=== PATIENT | female | born 1950 | race Caucasian/White ===

== ENCOUNTER 2019-11-06 13:12 | Outpatient (RCR) | payer MEDICAID, SELFPAY | END 2019-11-28 00:01 | LOC: GILAB 13:12 | PROVIDERS: Family Provider Internal Medicine; Visit Provider Internal Medicine | DX: Z95.828 Presence of other vascular implants and grafts (principal) | CPT/HCPCS: 96523; G0463; J1642 ==

== ENCOUNTER 2019-12-04 13:01 | Outpatient (CLI) | payer MEDICAID, SELFPAY ==
[2019-12-04 13:35] VITALS: BP 146/63; PULSE 79; RESP 20; TEMP 36.9; O2SAT 99
[2019-12-04 14:15] VITALS: BMI 18.1
== END 2019-12-04 13:02 | disposition home or self-care (01) ==
LOC: GILAB 13:05
PROVIDERS: Family Provider Internal Medicine; PCP Internal Medicine; Visit Provider Internal Medicine
DX: Z95.828 Presence of other vascular implants and grafts (principal)
CPT/HCPCS: 96368; J1642

== ENCOUNTER 2020-01-09 12:13 | Outpatient (CLI) | payer MEDICAID, SELFPAY ==
[2020-01-09 12:25] VITALS: BP 136/63; PULSE 74; RESP 20; TEMP 36.7; O2SAT 94
== END 2020-01-09 12:14 | disposition home or self-care (01) ==
LOC: GILAB 12:14
PROVIDERS: Family Provider Internal Medicine; PCP Internal Medicine; Visit Provider Internal Medicine
DX: Z95.828 Presence of other vascular implants and grafts (principal)
CPT/HCPCS: 96368

== ENCOUNTER 2020-02-05 13:08 | Outpatient (CLI) | payer MEDICAID, SELFPAY ==
[2020-02-05 13:42] VITALS: BP 154/64; PULSE 74; RESP 19; TEMP 35.9; O2SAT 88
== END 2020-02-05 13:09 | disposition home or self-care (01) ==
LOC: GILAB 13:11
PROVIDERS: Family Provider Internal Medicine; PCP Internal Medicine; Visit Provider Internal Medicine
DX: Z95.828 Presence of other vascular implants and grafts (principal)
CPT/HCPCS: 73590; 73610; 96368; J1642

== ENCOUNTER 2020-03-06 13:25 | Outpatient (CLI) | payer MEDICAID, SELFPAY | END 2020-03-06 13:26 | disposition home or self-care (01) | LOC: ONCMED 13:25 | PROVIDERS: Family Provider Internal Medicine; PCP Internal Medicine; Visit Provider Internal Medicine Medical Oncology | DX: Z45.2 Encounter for adjustment and management of vascular access device (principal) | CPT/HCPCS: 96523 ==

== ENCOUNTER 2020-05-09 12:37 | Outpatient (CLI) | payer MEDICAID, SELFPAY ==
[2020-05-09 15:30] VITALS: BMI 19.1
[2020-05-09 15:34] VITALS: BP 142/55; PULSE 71; RESP 22; TEMP 37.6; O2SAT 100
[2020-05-09 16:04] LABS: Basophils % 0.6 %; Eosinophils # 0.3 10^3/uL (0.0-0.8); Eosinophils % 4.4 %; Hematocrit 38.5 % (37.0-47.0); Lymphocytes # 1.7 10^3/uL (0.8-4.8); Lymphocytes % 25.6 %; Mean Corpuscular HGB Conc 31.2 g/dL (30.0-36.0); Mean Corpuscular Hemoglobin 30.3 pg (28.0-34.0); Mean Corpuscular Volume 97.2 fL (81-99); Monocytes # 0.7 10^3/uL (0.2-0.9); Neutrophils % 59.3 %; Nucleated Red Blood Cells % 0 %; Platelet Count 148 10^3/cmm (130-400); Red Blood Count 3.96 10^6/uL (4.1-5.3); Red Cell Distribution Width 13.9 % (12.1-15.1); White Blood Count 6.8 10^3/uL (4.0-10.0)
[2020-05-09 16:25] LABS: Alanine Aminotransferase 12 U/L (0-33); Albumin Level 4.4 g/dL (3.5-5.2); Alkaline Phosphatase 104 IU/L (35-105); Anion Gap 12.1 (5-19); Aspartate Amino Transferase 24 U/L (0-32); Blood Urea Nitrogen 11 mg/dL (8-23); Calcium 9.9 mg/dL (8.5-10.5); Carbon Dioxide 36 mmol/L (22-29); Chloride 94 mmol/L (98-107); Creatinine Clr Calc Pharmacy 43.8765; Globulin 2.2 g/dL (1.3-4.6); Glucose 85 mg/dL (65-115); Osmolality Calculated 281 mOsm/kg (285-295); Potassium 4.1 mmol/L (3.5-5.1); Sodium 138 mmol/L (136-145); Thyroid Stimulating Hormone 0.04 uIU/mL (0.27-4.20); Total Bilirubin 0.4 mg/dL (0.15-1.2); Total Protein 6.6 g/dL (6.6-8.7)
== END 2020-05-09 12:38 | disposition home or self-care (01) ==
PROVIDERS: PCP Internal Medicine; Visit Provider Internal Medicine
DX: Z95.828 Presence of other vascular implants and grafts (principal)
CPT/HCPCS: 36591; 80053; 84443; 85025; 96368; J1642

== ENCOUNTER 2020-05-16 18:56 | Emergency (ER) | payer MEDICAID, SELFPAY | END 2020-05-16 23:36 | disposition admitted as inpatient to this hospital (09) | LOC: ER 05-18 13:42 | PROVIDERS: Emergency Provider Emergency Medicine; PCP Internal Medicine | DX: S72.144A Nondisplaced intertrochanteric fracture of right femur, initial encounter for closed fracture (principal); W01.0XXA Fall on same level from slipping, tripping and stumbling without subsequent striking against object, initial encounter; I10 Essential (primary) hypertension; I25.10 Atherosclerotic heart disease of native coronary artery without angina pectoris; Z86.73 Personal history of transient ischemic attack (TIA), and cerebral infarction without residual deficits; E78.5 Hyperlipidemia, unspecified; J44.9 Chronic obstructive pulmonary disease, unspecified; Z85.850 Personal history of malignant neoplasm of thyroid; F17.210 Nicotine dependence, cigarettes, uncomplicated | CPT/HCPCS: 12345; 70450; 71045; 72131; 72192; 73502; 73552; 73562; 73700; 80053; 82550; 83735; 83880; 84484; 85025; 85610; 85730; 86850; 86900; 93005; 96361; 96374; 96375; 99283; 99285; J2270; J2405; J2930; J7030 ==

== ENCOUNTER 2020-05-16 18:56 | Inpatient (IN) | payer MEDICAID, SELFPAY ==
[2020-05-16 19:01] VITALS: BP 143/76; PULSE 48; RESP 20; TEMP 36.7; O2SAT 81; BMI 17.9
--- NOTE | 2020-05-16 19:01 | XRR_ITS ---
PROCEDURE INFORMATION: Exam: XR Right Hip with Pelvis when Performed Exam date and time: 05/16/2020 7:59 PM Age: 70 years old Clinical indication: Injury or trauma; Fall; Initial encounter; Blunt trauma (contusions or hematomas); Right; Hip; Additional info: Follow-up with pain/injury TECHNIQUE: Imaging protocol: XR Right hip with pelvis when performed. Views: 1 view. COMPARISON: No relevant prior studies available. FINDINGS: Bones/joints: There is a nondisplaced fracture of the greater trochanter right femur. No fracture line is identified extending through the intertrochanteric or subcapital femur. There is osteopenia. There is chondrocalcinosis with moderate degenerative changes right hip. The left hip and remainder of the pelvis are intact. There is deformity of the left inferior pubic ramus with bony sclerosis suspected be a old pubic ramus fracture. Soft tissues: Unremarkable. XR/XR hip RT 2-3V wo/w pel* [id number] IMPRESSION: 1. There is a nondisplaced fracture of the greater trochanter right femur. CT scan may be helpful to confirm that this is isolated only to the greater trochanter as described above. 2. There is deformity of the left inferior pubic ramus with bony sclerosis suspected be a old pubic ramus fracture.
--- NOTE | 2020-05-16 19:01 | XRR_ITS ---
PROCEDURE INFORMATION: Exam: XR Right Femur Exam date and time: 05/16/2020 7:59 PM Age: 70 years old Clinical indication: Injury or trauma; Fall; Initial encounter; Blunt trauma; Thigh or upper leg; Right; Additional info: Fall/pain with injury TECHNIQUE: Imaging protocol: XR Right femur. Views: 2 views. COMPARISON: No relevant prior studies available. FINDINGS: Bones/joints: There is a subtle fracture of the greater trochanter right femur. No additional acute fracture. Old healed fracture of the proximal fibula. There is chondrocalcinosis of the knee and hip joint. No knee joint effusion. Soft tissues: Unremarkable. XR/XR femur RT min 2V* [id number] IMPRESSION: There is a subtle fracture of the greater trochanter right femur.
--- NOTE | 2020-05-16 19:01 | XRR_ITS ---
PROCEDURE INFORMATION: Exam: XR Right Knee Exam date and time: 05/16/2020 7:59 PM Age: 70 years old Clinical indication: Injury or trauma; Fall; Initial encounter; Blunt trauma; Knee; Right; Additional info: Fall with pain/injury TECHNIQUE: Imaging protocol: XR Right knee. Views: 3 views. COMPARISON: No relevant prior studies available. FINDINGS: Bones/joints: There is diffuse osteopenia. Old healed fracture of the proximal fibula is noted. There is chondrocalcinosis. No knee joint effusion. No acute fracture. Soft tissues: No foreign body. XR/XR knee RT 3V* [id number] IMPRESSION: No acute bony abnormality.
--- NOTE | 2020-05-16 19:02 | XR_ITS ---
WS: [id number] XR chest 1V portable [id number] REASON FOR EXAM: Fall with chest pain FINDINGS: One view of the chest shows arteriosclerotic changes in the arch of the aorta. A reticular pattern throughout both lung mata are seen similar to the previous exam of December 22, 2018. A Mediport is noted extends from the right side in good position. The hilum and apices are normal. XR/XR chest 1V portable [id number] IMPRESSION: Interstitial pulmonary fibrosis.
--- NOTE | 2020-05-16 19:02 | ECG_ITS ---
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 Measurements Intervals [place] Rate: 95 P: 89 SC: 133 QRS: 80 QRSD: 85 T: 165 QT: 339 QTc: 426 Interpretive Statements SINUS RHYTHM WITH OCCASIONAL SUPRAVENTRICULAR PREMATURE COMPLEXES SEPTAL MYOCARDIAL INFARCTION [40+ ms Q WAVE IN V1/V2], PROBABLY OLD MODERATE T-WAVE ABNORMALITY, CONSIDER LATERAL ISCHEMIA [-0.1+ mV T WAVE IN I/aVL/V5/V6] MODERATE T-WAVE ABNORMALITY, CONSIDER INFERIOR ISCHEMIA [-0.1+ mV T WAVE IN II/aVF] Compared to ECG 07/13/2018 13:48:13 T-wave abnormality now present Possible ischemia now present Myocardial infarct finding still present Electronically Signed On 05-17-2020 7:54:36 CDT by Tico Yuen M.D. [id number]
--- NOTE | 2020-05-16 19:02 | CTR_ITS ---
PROCEDURE INFORMATION: Exam: CT Head Without Contrast Exam date and time: 05/16/2020 7:07 PM Age: 70 years old Clinical indication: Injury or trauma; Fall; Additional info: Fall with loc TECHNIQUE: Imaging protocol: Computed tomography of the head without contrast. Radiation optimization: All CT scans at this facility use at least one of these dose optimization techniques: automated exposure control; mA and/or kV adjustment per patient size (includes targeted exams where dose is matched to clinical indication); or iterative reconstruction. COMPARISON: No relevant prior studies available. RADIATION DOSE METRICS: Total DLP (mGy-cm): 554.43 FINDINGS: Brain: There is volume loss and periventricular low density compatible with small vessel disease changes. There is no acute hemorrhage, edema or mass effect. Ventricles: Normal. No ventriculomegaly. Bones/joints: Unremarkable. No acute fracture. Sinuses: Visualized sinuses are unremarkable. No fluid levels. Mastoid air cells: There is patchy opacification of the left mastoid air cells. The right mastoid air cells are clear. Soft tissues: Unremarkable. CT/CT head wo con* [id number] IMPRESSION: No acute intracranial abnormality. Radiation Dose CTDIVOL = (mGy): DLP = 554.43 (mGy-cm)
--- NOTE | 2020-05-16 19:08 | ED_ITS ---
HPI - General Adult General: Chief complaint: Fall Stated complaint: fall/ lt hip pain/sob Time Seen by Provider: 05/16/20 18:57 Source: patient and EMS Mode of arrival: EMS Limitations: no limitations History of Present Illness: HPI narrative: Sakina is a nice 70-year-old female brought in by EMS after she tripped and fell while walking outside in her yard at 3 PM today. She complains of pain to the right hip area that radiates down to her knee and also into her right buttock. She states she is been unable to stand or walk. She states the pain nearly caused her to black out. She is not 100% certain she blacked out but does not feel as though she completely had loss of consciousness. She denies any headache, neck pain, chest pain, upper back pain, upper extremity or lower extremity pain other than to the right leg. She denies being on any anticoagulants other than Plavix. Patient is normally on oxygen as she has severe COPD. In route EMS gave the patient 12.5 of Phenergan, 100 mcg of fentanyl. Associated symptoms: Deny chest pain, dyspnea, headache(s), nausea, rash, palpitations, syncope or vomiting Review of Systems Const: Denies: fever(s) Eyes: Denies: change in vision ENMT: Denies: throat pain Card: Denies: chest pain, palpitations, syncope, pre-syncope or dyspnea on exertion Resp: Denies: dyspnea, productive cough or non-productive cough GI: Denies: abdominal pain, nausea, vomiting or diarrhea : Denies: flank pain, dysuria, urinary frequency or urinary urgency Musc: Reports: back pain and extremity pain; Denies: neck pain Skin/Breast: Denies: rash or pruritus Neuro: Denies: headache(s), numbness in extremities, weakness in extremities or dizziness Edgar/Lymph: Denies: easy bruising or easy bleeding All/Imm: Denies: urticaria PFSH ED PFSH: Medical History Atypical chest pain Benign essential hypertension CAD (coronary artery disease) CVA (cerebral vascular accident) Dyslipidemia (high LDL; low HDL) History of COPD Hx of carotid stenosis SOB (shortness of breath) Thyroid cancer Surgical History H/O thyroidectomy History of back surgery Port-A-Cath in place S/P hardware removal Spine Family History Brother Leukemia Other CAD (coronary artery disease) Chronic kidney disease (CKD) Social History Smoking and tobacco status: current every day smoker cigarettes Alcohol intake: never Substance/Drug Use: never Household members: none Housing: Apartment Marital status: / Current occupational status: disabled History of recent travel: No Physical Exam Const: COMMON NORMALS: no acute distress, patient oriented x3, no limitations, healthy appearing and well nourished GENERAL APPEARANCE: cooperative, well kempt and well developed HENMT: COMMON NORMALS: normocephalic, atraumatic, external ears normal, EAC's normal and Normal external nose present HEAD & SCALP: normal to inspection, normocephalic and atraumatic FACE & SINUS: normal facial exam and face symmetric NOSE: Normal external nose present and Normal nares present EXTERNAL EAR: Yes external ears normal EXTERNAL AUDITORY CANAL: EAC's normal MOUTH: Normal oral and palatal mucosa present, lip normal and tongue normal Eye: COMMON NORMALS: Equal, round and reactive pupils present and conjunctivae normal GENERAL EYE: appearance normal, both eyes and all related structures ALIGNMENT: Yes alignment normal PERIORBITAL: periorbital findings normal EYELID: eyelids normal CONJUNCTIVA: Yes conjunctivae normal SCLERA: sclerae normal PUPIL: Yes Equal, round and reactive pupils present Neck/C-Spine: COMMON NORMALS: full ROM, no lymphadenopathy, supple, no meningeal signs and no JVD GENERAL: Yes normal visual inspection and Yes trachea midline Chest: COMMONS NORMALS: normal inspection of the chest and normal palpation of entire chest wall Resp: COMMON NORMALS: normal respiratory effort, No retractions and No use of accessory muscles EFFORT & INSPECTION: Yes able to speak in complete sentences and Yes symmetric chest movement AUSCULTATION: no crackles, no rales, no rhonchi and no wheezes Cardio: COMMON NORMALS: no JVD, regular rate, regular rhythm, S1 normal heart sound present and S2 normal heart sound present RATE: regular rate RHYTHM: regular rhythm HEART SOUNDS: S1 normal heart sound present, S2 normal heart sound present, no click, no gallops, no murmurs, no rubs and abnormal split S2 GI: COMMON NORMALS: Soft to palpation and No hepatosplenomegaly present PALPATION: Yes Soft to palpation, No Tenderness to palpation present (GI), No Guarding due to palpation present (GI), No Rigid due to palpation, Yes No hepatosplenomegaly present, No Hernia present, No Palpable mass present and No Pulsatile mass present : COMMON NORMALS: Yes no CVA tenderness BLADDER/KIDNEY EXAM: Yes no CVA tenderness EXTERNAL FEMALE EXAM: No Hernia present Back/Pelvis: COMMON NORMALS: no CVA tenderness, thoracic and lumbar spine normal to inspection, no thoracic nor lumbar tenderness and thoraco-lumbar ROM normal Extremity: NARRATIVE EXTREMITY EXAM: Patient with tenderness to palpation from the right greater trochanter all the way down to the knee. No tenderness to palpation distal to the knee. Patient with limited range of motion secondary to pain. The remaining musculoskeletal exam is unremarkable. Neuro: COMMON NORMALS: patient oriented x3, CN's II-XII intact bilaterally, moves all extremities, no focal motor deficits and no sensory deficits noted MENINGEAL SIGNS: Yes no meningeal signs SPEECH: speech normal Psych: COMMON NORMALS: mental status grossly normal, Normal thought process present, cooperative, normal affect, speech normal and activity/motor behavior normal APPEARANCE: Yes well kempt SPEECH: Yes normal speech THOUGHT PROCESS: Normal thought process present Skin: COMMON NORMALS: no rashes or lesions noted, turgor normal, no jaundice, no petechiae and no mottling GENERAL SKIN EXAM: no rashes or lesions noted and turgor normal Course Vital Signs: Vital signs: Vital Signs Temperature 98.1 F 05/17/20 00:08 Pulse Rate 101 H 05/17/20 00:08 Respiratory Rate 16 05/17/20 00:08 Blood Pressure 149/64 05/17/20 00:08 Pulse Oximetry 92 05/17/20 00:08 MDM - General Adult MDM Narrative: Medical decision making narrative: Patient's x-rays did not reveal obvious fractures but CT does show a intertrochanteric fracture. The case was reviewed with both Drs. Moore and Dr. Saldaña, they will admit and consult respectively. Lab Data: Attestation: I reviewed the patient's lab results. Labs: Lab Results 05/16/20 05/16/20 05/16/20 Range/Units 20:00 20:00 20:00 WBC 16.3 H (4.0-10.0) 10^3/ uL RBC 4.24 (4.1-5.3) 10^6/u L Hgb 12.9 (11.5-15.3) g/dL Hct 41.8 (37.0-47.0) % MCV 98.6 (81-99) fL MCH 30.4 (28.0-34.0) pg MCHC 30.9 (30.0-36.0) g/dL RDW 14.0 (12.1-15.1) % Plt Count 140 (130-400) 10^3/c mm MPV 10.1 (7.4-10.4) fL Neut % (Auto) 88.0 % Lymph % (Auto) 5.5 % [place] % (Auto) 5.6 % Eos % (Auto) 0.2 % Baso % (Auto) 0.2 % Neut # (Auto) 14.4 H (1.8-7.7) 10^3/u L Lymph # (Auto) 0.9 (0.8-4.8) 10^3/u L [place] # (Auto) 0.9 (0.2-0.9) 10^3/u L Eos # (Auto) 0.0 (0.0-0.8) 10^3/u L Baso # (Auto) 0.0 (0.0-0.1) 10^3/u L Nucleated RBC % (a uto) 0 % Nucleated RBCs # 0.0 /100WBC PT (10.5-13.3) SECO NDS INR (0.8-1.2) APTT (23.9-36.7) SECO NDS Sodium 136 (136-145) mmol/L Potassium 4.2 (3.5-5.1) mmol/L Chloride 96 L (98-107) mmol/L Carbon Dioxide 31 H (22-29) mmol/L Anion Gap 13.2 (5-19) BUN 9 (8-23) mg/dL Creatinine 0.7 (0.5-0.9) mg/dL Glucose 137 H (65-115) mg/dL Calculated Osmolal ity 280 L (285-295) mOsm/k g Calcium 9.7 (8.5-10.5) mg/dL Magnesium 1.7 (1.7-2.3) mg/dL Total Bilirubin 0.8 (0.15-1.2) mg/dL AST 28 (0-32) U/L ALT 14 (0-33) U/L Alkaline Phosphata se 112 H (35-105) IU/L Creatine Kinase 58 (26-192) U/L Troponin T Baselin e (0-10) ng/L NT-Pro-B Natriuret Pep (0-125) pg/mL Total Protein 6.6 (6.6-8.7) g/dL Albumin 4.3 (3.5-5.2) g/dL Globulin 2.3 (1.3-4.6) g/dL Blood Type A Positive Rho(D) Type Positive Antibody Screen Negative 05/16/20 05/16/20 05/16/20 Range/Units 20:00 20:00 20:00 WBC (4.0-10.0) 10^3/ uL RBC (4.1-5.3) 10^6/u L Hgb (11.5-15.3) g/dL Hct (37.0-47.0) % MCV (81-99) fL MCH (28.0-34.0) pg MCHC (30.0-36.0) g/dL RDW (12.1-15.1) % Plt Count (130-400) 10^3/c mm MPV (7.4-10.4) fL Neut % (Auto) % Lymph % (Auto) % [place] % (Auto) % Eos % (Auto) % Baso % (Auto) % Neut # (Auto) (1.8-7.7) 10^3/u L Lymph # (Auto) (0.8-4.8) 10^3/u L [place] # (Auto) (0.2-0.9) 10^3/u L Eos # (Auto) (0.0-0.8) 10^3/u L Baso # (Auto) (0.0-0.1) 10^3/u L Nucleated RBC % (a uto) % Nucleated RBCs # /100WBC PT 14.50 H (10.5-13.3) SECO NDS INR 1.09 (0.8-1.2) APTT 45.5 H (23.9-36.7) SECO NDS Sodium (136-145) mmol/L Potassium (3.5-5.1) mmol/L Chloride (98-107) mmol/L Carbon Dioxide (22-29) mmol/L Anion Gap (5-19) BUN (8-23) mg/dL Creatinine (0.5-0.9) mg/dL Glucose (65-115) mg/dL Calculated Osmolal ity (285-295) mOsm/k g Calcium (8.5-10.5) mg/dL Magnesium (1.7-2.3) mg/dL Total Bilirubin (0.15-1.2) mg/dL AST (0-32) U/L ALT (0-33) U/L Alkaline Phosphata se (35-105) IU/L Creatine Kinase (26-192) U/L Troponin T Baselin e 33 H (0-10) ng/L NT-Pro-B Natriuret Pep 1424 H (0-125) pg/mL Total Protein (6.6-8.7) g/dL Albumin (3.5-5.2) g/dL Globulin (1.3-4.6) g/dL Blood Type Rho(D) Type Antibody Screen Imaging Data^: CXR: Attestation: I personally reviewed and interpreted this imaging study as follows: My impression: Cardiomegaly with borderline pulmonary vascular congestion versus interstitial fibrosis. Right Hip: Radiologist's impression: [address] [place] [address] CT Scan Report Signed Patient: Annamarie Dueñas Unit #: [id number] : 06/06/1951 Age/Sex: 68 / F ADM Date: 05/16/20 Loc: ER Room/Bed: Attending Dr: Ordering Provider/Ordering MD: Joan Aldana DO Date of Service: 05/16/20 Procedure(s): CT abdomen pelvis [facility] [address] Accession Number(s): [id number] Report Number: [id number] PROCEDURE INFORMATION: Exam: CT Abdomen And Pelvis Without Contrast Exam date and time: 05/16/2020 8:50 PM Age: 68 years old Clinical indication: Bloating; Prior surgery; Surgery type: Bilat hip, hyst, umbilical hernia, cardiac cath; Additional info: Abdominal pain TECHNIQUE: Imaging protocol: Computed tomography of the abdomen and pelvis without contrast. Radiation optimization: All CT scans at this facility use at least one of these dose optimization techniques: automated exposure control; mA and/or kV adjustment per patient size (includes targeted exams where dose is matched to clinical indication); or iterative reconstruction. COMPARISON: No relevant prior studies available. RADIATION DOSE METRICS: Total DLP (mGy-cm): 1761.64 FINDINGS: Lungs: There is subpleural atelectasis of the dependent portions of the lungs. There is also probable basilar fibrosis. Liver: Unremarkable.No mass. Gallbladder and bile ducts: Multiple calcified gallstones are present. There is no wall thickening or pericholecystic fluid to suggest cholecystitis. There is no common bile duct dilation. Pancreas: Normal. No ductal dilation. Spleen: Normal. No splenomegaly. Adrenals: Normal. No mass. Kidneys and ureters: There are bilateral renal vascular calcifications. No definite nephrolithiasis. No hydronephrosis. Stomach and bowel: There is abundant colonic stool compatible with constipation but no impaction. There is no evidence of colitis/diverticulitis. There is no evidence of intestinal perforation or obstruction. Appendix: No evidence of appendicitis. Intraperitoneal space: Unremarkable. No free air. No significant fluid collection. Vasculature: The aorta demonstrates moderate atherosclerotic calcification. Lymph nodes: Unremarkable.No enlarged lymph nodes. Bladder: The bladder is normal. Reproductive: There has been a hysterectomy. Bones/joints: There is artifact from the bilateral hip arthroplasties. There is osteopenia with severe degenerative changes in the spine and pelvis. Soft tissues: Postoperative changes of a abdominal hernia repair are noted. Other findings: There is mild dependent edema. There is levoscoliosis. CT/CT abdomen pelvis wo con [id number] IMPRESSION: 1. There is abundant colonic stool compatible with constipation but no impaction. 2. No acute abnormality. Radiation Dose CTDIVOL = (mGy): DLP = 1761.64 (mGy-cm) Dictated By: Karlie Peters Signed By: Karlie Peters Signed Date/Time: 05/16/202118 DD/ 17 Right Knee: Radiologist's impression: [address] [address] XRay Report Signed Patient: Sakina Lombardi Unit #: [id number] : 1950 Age/Sex: 70 / F ADM Date: 05/16/20 Loc: ER Room/Bed: Attending Dr: Ordering Provider/Ordering MD: Joan Aldana DO Date of Service: 05/16/20 Procedure(s): XR knee RT 3V* [id number] Accession Number(s): [id number] Report Number: [id number] PROCEDURE INFORMATION: Exam: XR Right Knee Exam date and time: 05/16/2020 7:59 PM Age: 70 years old Clinical indication: Injury or trauma; Fall; Initial encounter; Blunt trauma; Knee; Right; Additional info: Fall with pain/injury TECHNIQUE: Imaging protocol: XR Right knee. Views: 3 views. COMPARISON: No relevant prior studies available. FINDINGS: Bones/joints: There is diffuse osteopenia. Old healed fracture of the proximal fibula is noted. There is chondrocalcinosis. No knee joint effusion. No acute fracture. Soft tissues: No foreign body. XR/XR knee RT 3V* [id number] IMPRESSION: No acute bony abnormality. Dictated By: Karlie Peters Signed By: Karlie Peters Signed Date/Time: 05/16/202108 DD/ 07 Right Femur: Radiologist's impression: [address] [address] XRay Report Signed Patient: Sakina Lombardi Unit #: [id number] : 1950 Age/Sex: 70 / F ADM Date: 05/16/20 Loc: ER Room/Bed: Attending Dr: Ordering Provider/Ordering MD: Joan Aldana DO Date of Service: 05/16/20 Procedure(s): XR femur RT min 2V* [id number] Accession Number(s): [id number] Report Number: [id number] PROCEDURE INFORMATION: Exam: XR Right Femur Exam date and time: 05/16/2020 7:59 PM Age: 70 years old Clinical indication: Injury or trauma; Fall; Initial encounter; Blunt trauma; Thigh or upper leg; Right; Additional info: Fall/pain with injury TECHNIQUE: Imaging protocol: XR Right femur. Views: 2 views. COMPARISON: No relevant prior studies available. FINDINGS: Bones/joints: There is a subtle fracture of the greater trochanter right femur. No additional acute fracture. Old healed fracture of the proximal fibula. There is chondrocalcinosis of the knee and hip joint. No knee joint effusion. Soft tissues: Unremarkable. XR/XR femur RT min 2V* [id number] IMPRESSION: There is a subtle fracture of the greater trochanter right femur. Dictated By: Karlie Peters Signed By: Karlie Peters Signed Date/Time: 05/16/202112 DD/ 10 CT Head: Radiologist's impression: [address] [address] [address] Scan Report Signed Patient: Sakina Lombardi Unit #: [id number] : 1950 Age/Sex: 70 / F ADM Date: 05/16/20 Loc: ER Room/Bed: Attending Dr: Ordering Provider/Ordering MD: Joan Aldana DO Date of Service: 05/16/20 Procedure(s): CT head wo con* [id number] Accession Number(s): [id number] Report Number: [id number] PROCEDURE INFORMATION: Exam: CT Head Without Contrast Exam date and time: 05/16/2020 7:07 PM Age: 70 years old Clinical indication: Injury or trauma; Fall; Additional info: Fall with loc TECHNIQUE: Imaging protocol: Computed tomography of the head without contrast. Radiation optimization: All CT scans at this facility use at least one of these dose optimization techniques: automated exposure control; mA and/or kV adjustment per patient size (includes targeted exams where dose is matched to clinical indication); or iterative reconstruction. COMPARISON: No relevant prior studies available. RADIATION DOSE METRICS: Total DLP (mGy-cm): 554.43 FINDINGS: Brain: There is volume loss and periventricular low density compatible with small vessel disease changes. There is no acute hemorrhage, edema or mass effect. Ventricles: Normal. No ventriculomegaly. Bones/joints: Unremarkable. No acute fracture. Sinuses: Visualized sinuses are unremarkable. No fluid levels. Mastoid air cells: There is patchy opacification of the left mastoid air cells. The right mastoid air cells are clear. Soft tissues: Unremarkable. CT/CT head wo con* [id number] IMPRESSION: No acute intracranial abnormality. Radiation Dose CTDIVOL = (mGy): DLP = 554.43 (mGy-cm) Dictated By: Karlie Peters Signed By: Karlie Peters Signed Date/Time: 05/16/201943 DD/ 41 CT Lumbar Spine: Radiologist's impression: [place] [address] CT Scan Report Signed Patient: Sakina Lombardi Unit #: [id number] : 1950 Age/Sex: 70 / F ADM Date: 05/16/20 Loc: ER Room/Bed: Attending Dr: Ordering Provider/Ordering MD: Joan Aldana DO Date of Service: 05/16/20 Procedure(s): CT lumbar spine wo con* [id number] Accession Number(s): [id number] Report Number: [id number] PROCEDURE INFORMATION: Exam: CT Lumbar Spine Without Contrast Exam date and time: 05/16/2020 7:12 PM Age: 70 years old Clinical indication: Injury or trauma; Fall; Initial encounter; Blunt trauma (contusions or hematomas); Prior surgery; Surgery type: Back, gb; Additional info: Trauma/pain TECHNIQUE: Imaging protocol: Computed tomography images of the lumbar spine without contrast. Radiation optimization: All CT scans at this facility use at least one of these dose optimization techniques: automated exposure control; mA and/or kV adjustment per patient size (includes targeted exams where dose is matched to clinical indication); or iterative reconstruction. COMPARISON: No relevant prior studies available. RADIATION DOSE METRICS: Total DLP (mGy-cm): 1011.7 FINDINGS: Vertebrae: There is diffuse osteopenia. No acute fracture or subluxation. Discs/Spinal canal/Neural foramina: There is disc space narrowing with endplate degenerative changes at L5-S1. There are moderate to severe degenerative changes in the lower lumbar spine. There is a small disc bulge at L4-L5 and L5-S1 with mild narrowing of the central canal and foramina but there is no critical stenosis. Lungs: There is dependent atelectasis and severe emphysematous changes in the lungs. Kidneys and ureters: There is punctate left nephrolithiasis. No hydronephrosis or obstructing calculus. Stomach and bowel: There is abundant colonic stool. Soft tissues: Unremarkable. CT/CT lumbar spine wo con* [id number] IMPRESSION: No acute abnormality. No acute fracture. Small disc bulges are noted without critical stenosis. There is incidental punctate nephrolithiasis but no hydronephrosis. Radiation Dose CTDIVOL = (mGy): DLP = 1011.7 (mGy-cm) Dictated By: Karlie Peters Signed By: Karlie Peters Signed Date/Time: 05/16/201946 DD/ 45 CT Bony Pelvis: Radiologist's impression: [address] [address] [address] Scan Report Signed Patient: Sakina Lombardi Unit #: [id number] : 1950 Age/Sex: 70 / F ADM Date: 05/16/20 Loc: ER Room/Bed: Attending Dr: Ordering Provider/Ordering MD: Joan Aldana DO Date of Service: 05/16/20 Procedure(s): CT pelvis wo con [id number] Accession Number(s): [id number] Report Number: [id number] PROCEDURE INFORMATION: Exam: CT Pelvis Without Contrast; Skeletal Exam date and time: 05/16/2020 9:28 PM Age: 70 years old Clinical indication: Injury or trauma; Fall; Initial encounter; Blunt trauma (contusions or hematomas); Right; Hip; Additional info: Fall/pain TECHNIQUE: Imaging protocol: Computed tomography images of the pelvis without contrast. Exam focused on the skeletal structures. Radiation optimization: All CT scans at this facility use at least one of these dose optimization techniques: automated exposure control; mA and/or kV adjustment per patient size (includes targeted exams where dose is matched to clinical indication); or iterative reconstruction. COMPARISON: CR XR hip RT 2-3V wo/w pel* [id number] 05/16/2020 7:27 PM RADIATION DOSE METRICS: Total DLP (mGy-cm): 204.37 FINDINGS: Bladder: There is radiopaque density at the base of the bladder from probable prior bladder stabilization procedure. Vasculature: Is there are moderate atherosclerotic calcifications of the aorta. Bones/joints: There are moderate to severe degenerative changes in the lower lumbar spine and the bilateral sacroiliac joints. Plain films today demonstrate what appear to be an isolated fracture of the greater trochanter right femur but this is a complete nondisplaced intertrochanteric femur fracture. A subtle nondisplaced fracture line is extending through the intertrochanteric femur exiting the medial cortex on series 2, image 83. Fracture line is also identified in the coronal plane series 601, image 59. No additional acute fracture is identified. The bilateral acetabula and the left femur are intact. There are symmetric [id number] degenerative changes in the hips. There is a right hip joint effusion with edema adjacent to the right hip fracture. Soft tissues: Mild edema. CT/CT pelvis wo con [id number] IMPRESSION: Complete nondisplaced intertrochanteric right femur fracture. This is not an isolated fracture of the greater trochanter as described on the prior plain film earlier this evening. Radiation Dose CTDIVOL = (mGy): DLP = 204.37 (mGy-cm) Dictated By: Karlie Peters Signed By: Karlie Peters Signed Date/Time: 05/16/202201 DD/ 99 CT Right Femur: Radiologist's impression: [address] [place] [address] CT Scan Report Signed Patient: Sakina Lombardi Unit #: [id number] : 1950 Age/Sex: 70 / F ADM Date: 05/16/20 Loc: ER Room/Bed: Attending Dr: Ordering Provider/Ordering MD: Joan Aldana DO Date of Service: 05/16/20 Procedure(s): CT femur RT wo con* [id number] Accession Number(s): [id number] Report Number: [id number] PROCEDURE INFORMATION: Exam: CT Right Lower Extremity Without Contrast; Thigh Exam date and time: 05/16/2020 9:28 PM Age: 70 years old Clinical indication: Injury or trauma; Fall; Work related; Initial encounter; Blunt trauma; Hip; Right; Additional info: Fall/pain TECHNIQUE: Imaging protocol: CT of the Right lower extremity without contrast was performed. Exam focused on the thigh. Radiation optimization: All CT scans at this facility use at least one of these dose optimization techniques: automated exposure control; mA and/or kV adjustment per patient size (includes targeted exams where dose is matched to clinical indication); or iterative reconstruction. COMPARISON: CR XR femur RT min 2V* [id number] 05/16/2020 7:27 PM RADIATION DOSE METRICS: Total DLP (mGy-cm): 1067.41 FINDINGS: Bones/joints: There is a nondisplaced right intertrochanteric femur fracture. No additional acute fracture is identified in the femur or knee. There is severe osteopenia. There is chondrocalcinosis in the hip and knee joint. No additional acute fracture is identified. There are moderate degenerative changes in the hip and knee joint. There is a small right hip joint effusion and edema adjacent to the right hip fracture. No knee joint effusion. Soft tissues: Normal. CT/CT femur RT wo con* [id number] IMPRESSION: There is a nondisplaced right intertrochanteric femur fracture. Radiation Dose CTDIVOL = (mGy): DLP = 1067.41 (mGy-cm) Dictated By: Karlie Peters Signed By: Karlie Peters Signed Date/Time: 05/16/202202 DD/ 01 EKG Data^: EKG 1: Attestation: I personally reviewed and interpreted this EKG as follows: EKG interpretation date: 05/16/20 EKG interpretation time: 20:41 Interpretation: Normal sinus rhythm at 95 beats a minute, baseline artifact present, T wave inversions in lateral leads V4 through V6. Computer generated interpretation: Femur X-Ray 05/16/20 19:01 IMPRESSION: There is a subtle fracture of the greater trochanter right femur. Hip/Pelvis X-Ray 05/16/20 19:01 IMPRESSION: 1. There is a nondisplaced fracture of the greater trochanter right femur. CT scan may be helpful to confirm that this is isolated only to the greater trochanter as described above. 2. There is deformity of the left inferior pubic ramus with bony sclerosis suspected be a old pubic ramus fracture. Knee X-Ray 05/16/20 19:01 IMPRESSION: No acute bony abnormality. Head CT 05/16/20 19:02 IMPRESSION: No acute intracranial abnormality. Radiation Dose CTDIVOL = (mGy): DLP = 554.43 (mGy-cm) Lumbar Spine CT 05/16/20 19:11 IMPRESSION: No acute abnormality. No acute fracture. Small disc bulges are noted without critical stenosis. There is incidental punctate nephrolithiasis but no hydronephrosis. Radiation Dose CTDIVOL = (mGy): DLP = 1011.7 (mGy-cm) Femur CT 05/16/20 21:22 IMPRESSION: There is a nondisplaced right intertrochanteric femur fracture. Radiation Dose CTDIVOL = (mGy): DLP = 1067.41 (mGy-cm) Pelvis CT 05/16/20 21:22 IMPRESSION: Complete nondisplaced intertrochanteric right femur fracture. This is not an isolated fracture of the greater trochanter as described on the prior plain film earlier this evening. Radiation Dose CTDIVOL = (mGy): DLP = 204.37 (mGy-cm) Discharge Plan Discharge Patient Disposition: Admitted As Inpatient Admit Provider: Elvin Moore Clinical Impression: Closed hip fracture Qualifiers: Encounter type: initial encounter Laterality: right Qualified Code(s): S72.001A - Fracture of unspecified part of neck of right femur, initial encounter for closed fracture Condition: Stable Referrals: Eliezer Mejia MD [Primary Care Provider] - Discharge Date/Time: 05/16/20 23:36 Coding Level of Care Code ED Geophysical Laboratory Chief for [facility] Fwd Exam Comprehensive
--- NOTE | 2020-05-16 19:11 | CTR_ITS ---
PROCEDURE INFORMATION: Exam: CT Lumbar Spine Without Contrast Exam date and time: 05/16/2020 7:12 PM Age: 70 years old Clinical indication: Injury or trauma; Fall; Initial encounter; Blunt trauma (contusions or hematomas); Prior surgery; Surgery type: Back, gb; Additional info: Trauma/pain TECHNIQUE: Imaging protocol: Computed tomography images of the lumbar spine without contrast. Radiation optimization: All CT scans at this facility use at least one of these dose optimization techniques: automated exposure control; mA and/or kV adjustment per patient size (includes targeted exams where dose is matched to clinical indication); or iterative reconstruction. COMPARISON: No relevant prior studies available. RADIATION DOSE METRICS: Total DLP (mGy-cm): 1011.7 FINDINGS: Vertebrae: There is diffuse osteopenia. No acute fracture or subluxation. Discs/Spinal canal/Neural foramina: There is disc space narrowing with endplate degenerative changes at L5-S1. There are moderate to severe degenerative changes in the lower lumbar spine. There is a small disc bulge at L4-L5 and L5-S1 with mild narrowing of the central canal and foramina but there is no critical stenosis. Lungs: There is dependent atelectasis and severe emphysematous changes in the lungs. Kidneys and ureters: There is punctate left nephrolithiasis. No hydronephrosis or obstructing calculus. Stomach and bowel: There is abundant colonic stool. Soft tissues: Unremarkable. CT/CT lumbar spine wo con* [id number] IMPRESSION: No acute abnormality. No acute fracture. Small disc bulges are noted without critical stenosis. There is incidental punctate nephrolithiasis but no hydronephrosis. Radiation Dose CTDIVOL = (mGy): DLP = 1011.7 (mGy-cm)
--- NOTE | 2020-05-16 19:14 | PC.NURSE ---
Pt. to CT scan via stretcher
--- NOTE | 2020-05-16 19:44 | PC.NURSE ---
Pt. returned from CT scan. X-Ray in progress at bedside
[2020-05-16 20:03] VITALS: RESP 18
[2020-05-16] MEDS: morphine 4 mg/mL SDV 1 mL IVP ×2 (20:03→23:55)
[2020-05-16] MEDS: ondansetron 2 mg/ML SDV 2 mL 4 MG IVP (20:04)
[2020-05-16 20:10] LABS: Basophils % 0.2 %; Eosinophils % 0.2 %; Hematocrit 41.8 % (37.0-47.0); Hemoglobin 12.9 g/dL (11.5-15.3); Lymphocytes # 0.9 10^3/uL (0.8-4.8); Lymphocytes % 5.5 %; Mean Corpuscular HGB Conc 30.9 g/dL (30.0-36.0); Mean Corpuscular Hemoglobin 30.4 pg (28.0-34.0); Mean Corpuscular Volume 98.6 fL (81-99); Mean Platelet Volume 10.1 fL (7.4-10.4); Monocytes # 0.9 10^3/uL (0.2-0.9); Monocytes % 5.6 %; Neutrophils # 14.4 10^3/uL (1.8-7.7); Nucleated Red Blood Cells % 0 %; Platelet Count 140 10^3/cmm (130-400); Red Blood Count 4.24 10^6/uL (4.1-5.3); White Blood Count 16.3 10^3/uL (4.0-10.0)
[2020-05-16] MEDS: sodium chloride 0.9% 1,000 ML 100 ML IV (20:10)
[2020-05-16 20:11] VITALS: BP 135/85; PULSE 98; RESP 18; O2SAT 95
[2020-05-16 20:25] LABS: Alanine Aminotransferase 14 U/L (0-33); Albumin Level 4.3 g/dL (3.5-5.2); Alkaline Phosphatase 112 IU/L (35-105); Anion Gap 13.2 (5-19); Aspartate Amino Transferase 28 U/L (0-32); Blood Urea Nitrogen 9 mg/dL (8-23); Calcium 9.7 mg/dL (8.5-10.5); Carbon Dioxide 31 mmol/L (22-29); Chloride 96 mmol/L (98-107); Creatine Phosphokinase 58 U/L (26-192); Creatinine Clr Calc Pharmacy 44.7939; Globulin 2.3 g/dL (1.3-4.6); Glucose 137 mg/dL (65-115); Magnesium 1.7 mg/dL (1.7-2.3); Osmolality Calculated 280 mOsm/kg (285-295); Potassium 4.2 mmol/L (3.5-5.1); Sodium 136 mmol/L (136-145); Total Bilirubin 0.8 mg/dL (0.15-1.2); Total Protein 6.6 g/dL (6.6-8.7)
[2020-05-16 20:27] LABS: INR 1.09 (0.8-1.2); Partial Thromboplastin Time 45.5 SECONDS (23.9-36.7)
--- NOTE | 2020-05-16 20:48 | PC.NURSE ---
Pt. declined IV tylenol, Mayer catheter, ABG, and breathing treatment. MD Aldana notified
[2020-05-16 21:09] LABS: Troponin(5th) Baseline 33 ng/L (0-10)
--- NOTE | 2020-05-16 21:22 | CTR_ITS ---
PROCEDURE INFORMATION: Exam: CT Pelvis Without Contrast; Skeletal Exam date and time: 05/16/2020 9:28 PM Age: 70 years old Clinical indication: Injury or trauma; Fall; Initial encounter; Blunt trauma (contusions or hematomas); Right; Hip; Additional info: Fall/pain TECHNIQUE: Imaging protocol: Computed tomography images of the pelvis without contrast. Exam focused on the skeletal structures. Radiation optimization: All CT scans at this facility use at least one of these dose optimization techniques: automated exposure control; mA and/or kV adjustment per patient size (includes targeted exams where dose is matched to clinical indication); or iterative reconstruction. COMPARISON: CR XR hip RT 2-3V wo/w pel* [id number] 05/16/2020 7:27 PM RADIATION DOSE METRICS: Total DLP (mGy-cm): 204.37 FINDINGS: Bladder: There is radiopaque density at the base of the bladder from probable prior bladder stabilization procedure. Vasculature: Is there are moderate atherosclerotic calcifications of the aorta. Bones/joints: There are moderate to severe degenerative changes in the lower lumbar spine and the bilateral sacroiliac joints. Plain films today demonstrate what appear to be an isolated fracture of the greater trochanter right femur but this is a complete nondisplaced intertrochanteric femur fracture. A subtle nondisplaced fracture line is extending through the intertrochanteric femur exiting the medial cortex on series 2, image 83. Fracture line is also identified in the coronal plane series 601, image 59. No additional acute fracture is identified. The bilateral acetabula and the left femur are intact. There are symmetric [id number] degenerative changes in the hips. There is a right hip joint effusion with edema adjacent to the right hip fracture. Soft tissues: Mild edema. CT/CT pelvis wo con [id number] IMPRESSION: Complete nondisplaced intertrochanteric right femur fracture. This is not an isolated fracture of the greater trochanter as described on the prior plain film earlier this evening. Radiation Dose CTDIVOL = (mGy): DLP = 204.37 (mGy-cm)
--- NOTE | 2020-05-16 21:22 | CTR_ITS ---
PROCEDURE INFORMATION: Exam: CT Right Lower Extremity Without Contrast; Thigh Exam date and time: 05/16/2020 9:28 PM Age: 70 years old Clinical indication: Injury or trauma; Fall; Work related; Initial encounter; Blunt trauma; Hip; Right; Additional info: Fall/pain TECHNIQUE: Imaging protocol: CT of the Right lower extremity without contrast was performed. Exam focused on the thigh. Radiation optimization: All CT scans at this facility use at least one of these dose optimization techniques: automated exposure control; mA and/or kV adjustment per patient size (includes targeted exams where dose is matched to clinical indication); or iterative reconstruction. COMPARISON: CR XR femur RT min 2V* [id number] 05/16/2020 7:27 PM RADIATION DOSE METRICS: Total DLP (mGy-cm): 1067.41 FINDINGS: Bones/joints: There is a nondisplaced right intertrochanteric femur fracture. No additional acute fracture is identified in the femur or knee. There is severe osteopenia. There is chondrocalcinosis in the hip and knee joint. No additional acute fracture is identified. There are moderate degenerative changes in the hip and knee joint. There is a small right hip joint effusion and edema adjacent to the right hip fracture. No knee joint effusion. Soft tissues: Normal. CT/CT femur RT wo con* [id number] IMPRESSION: There is a nondisplaced right intertrochanteric femur fracture. Radiation Dose CTDIVOL = (mGy): DLP = 1067.41 (mGy-cm)
[2020-05-16 21:42] LABS: NT Pro B Type Natriuretic Pept 1424 pg/mL (0-125)
[2020-05-16 22:32] VITALS: RESP 20
[2020-05-16] MEDS: HYDROmorphone 1 mg/mL INJ 1 mL 0.5 MG IVP (22:32)
[2020-05-16 22:50] LABS: Troponin 5 2HR 33.21 ng/L (0-10); Troponin 5 2HR Delta 0.21 ABS# (0-10)
[2020-05-16] MEDS: ipratropium-albuterol 3 mL Neb 9 ML INHALATION (23:05)
--- NOTE | 2020-05-16 23:06 | PC.NURSE ---
Admitting MD at bedside for evaluation
[2020-05-16 23:07] VITALS: BP 142/74; PULSE 87; RESP 18; O2SAT 94
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
--- NOTE | 2020-05-16 23:22 | PC.NURSE ---
Pt. refuses reyes catheter at this time.
[2020-05-16 23:55] VITALS: RESP 16
[2020-05-16] MEDS: nicotine 14 mg Patch 1 PATCH TRANSDERMA (23:56)
[2020-05-17] VITALS (22 sets, daily range): BP systolic 112–166; BP diastolic 57–96; PULSE 80–103; RESP 10–23; TEMP 36.6–37.1; O2SAT 92–99; BMI 17.9
--- NOTE | 2020-05-17 | SCC_ITS ---
Procedure Done: Open reduction internal fixation right intertrochanteric hip fracture utilizing the following implants: The [employer] gamma 3 total hip system with a 11 x 180 mm x 130 degree gamma 3 trochanteric nail, a size 10.5 x 95 mm lag screw into the femoral head and a distal locking screw size 5 mm x 32.5 mm 81.8 seconds of fluoroscopic guidance, for a cumulative dose of 5.74 mGy, was provided to Dr. Marroquin by the radiology department. C-arm images of the RIGHT hip were saved for the patient's permanent record. MARISA
--- NOTE | 2020-05-17 | XR_ITS ---
WS: [id number] XR hip RT 2-3V wo/w pel* [id number] REASON FOR EXAM: ORIF RIGHT HIP FINDINGS: Right hip shows reduction of the intertrochanteric fracture a gamma nail apparatus is seen in good alignment. XR/XR hip RT 2-3V wo/w pel* [id number] IMPRESSION: Satisfactory alignment with reduction in internal fixation with a gamma nail of the fracture of the proximal right femur.
[2020-05-17] MEDS: sodium chloride 0.9% 1,000 ML 100 ML IV ×2 (00:04→16:12)
[2020-05-17] MEDS: morphine 4 mg/mL SDV 1 mL IVP ×2 (02:18→04:49)
--- NOTE | 2020-05-17 02:37 | PC.NURSE ---
Attempted Mayer Placement [address] to [address] Mayer catheter without success. Dr Moore notified and said it could be placed in the OR while patient is under anesthesia.
[2020-05-17 04:13] LABS: Partial Thromboplastin Time 32.5 SECONDS (23.9-36.7)
[2020-05-17] MEDS: ipratropium-albuterol 3 mL Neb INHALATION ×3 (04:15→20:09)
[2020-05-17 04:21] LABS: Basophils % 0.2 %; Hematocrit 36.6 % (37.0-47.0); Lymphocytes # 0.4 10^3/uL (0.8-4.8); Lymphocytes % 5.2 %; Mean Corpuscular HGB Conc 30.1 g/dL (30.0-36.0); Mean Corpuscular Hemoglobin 30.8 pg (28.0-34.0); Mean Corpuscular Volume 102.5 fL (81-99); Mean Platelet Volume 10.4 fL (7.4-10.4); Monocytes # 0.1 10^3/uL (0.2-0.9); Monocytes % 1.5 %; Neutrophils # 7.9 10^3/uL (1.8-7.7); Neutrophils % 92.4 %; Nucleated Red Blood Cells % 0 %; Platelet Count 92 10^3/cmm (130-400); Red Blood Count 3.57 10^6/uL (4.1-5.3); Red Cell Distribution Width 13.9 % (12.1-15.1); White Blood Count 8.5 10^3/uL (4.0-10.0)
[2020-05-17 04:26] LABS: Blood Urea Nitrogen 10 mg/dL (8-23); Calcium 8.4 mg/dL (8.5-10.5); Carbon Dioxide 30 mmol/L (22-29); Chloride 98 mmol/L (98-107); Creatinine Clr Calc Pharmacy 44.7939; Glucose 174 mg/dL (65-115); Osmolality Calculated 282 mOsm/kg (285-295); Sodium 136 mmol/L (136-145)
[2020-05-17 04:28] LABS: Troponin 5 6HR 21.33 ng/L (0-10)
--- NOTE | 2020-05-17 10:04 | PC.CHAP ---
Pastoral Care Encounter/Spiritual Assessment Type of Contact [] Declined ramp supervisor visit [] Patient/Family/Request visit [] Outpatient visit [] Follow-up visit [] Physician referral [] Code/Alert [x] Routine visit [] Staff referral [] Actively dying [] Patient sleeping [] Family support [] [x] Out of room [] Palliative care [] [] Receiving care in room [] Pre-surgical visit [] Trauma [] Long length of stay [] ICU visit [] Other: in Surgery Relational/Emotional Strength [] Patient feels connected with others/family/visitors/staff [] Distress [] Loneliness/isolation [] Abandonment Spirituality of Patient [] Person of Debra [] Attends Quaker of their Debra [] Believes in Prayer [] Reads Bible or Denominational materials [] There are Spiritual issues to be addressed Sensor Operator Interventions [] Prayer [] Active listening [] Non-anxious presence [] Spiritual/emotional support [] Crisis/trauma care [] Spiritual counseling [] Bereavement support [] Provided bereavement packet [] Provided Bible/devotional materials [] Provided toy/stuffed animal, coloring book to patient or family member [] Provided Communion [] Anointing/[place] [] Salvation [x] Completed spiritual assessment [] Other: Impact on Illness or Injury [] Angry [] Fearful [] Anxious [] Often cries [] Exhaustion [] Unable to work [] Unable to attend restoration [] Unable to walk/stand [] Unable to read [] Unable to drive [] Unable to eat/drink [] Unable to sleep [] Unable to be with family [] Patient intubated [] Other: Summary Time spent with patient
--- NOTE | 2020-05-17 10:32 | ANES.PREANE2 ---
Pre-Anesthetic Assessment Pre-Anesthetic Assessment: Height/Weight: Height 1.52 m Weight 41.73 kg Temp Pulse Resp BP Pulse Ox 98.5 F 89 18 130/66 96 05/17/20 07:32 05/17/20 08:30 05/17/20 08:20 05/17/20 07:32 05/17/20 08:20 Proposed Procedure: Operation Date: 05/17/20 11:50 Proposed Procedures p Trochanteric Femoral Nail(Right) - Mag Marroquin MD Last intake: Intake Last Liquid Date 05/16/20 Last Liquid Time 23:00 Last Solid Date 05/16/20 Last Solid Time 23:00 Social: Social History: Tobacco and No alcohol Exam: Pre-Anes Outpt Exam: alert, oriented x 3 and regular rate & rhythm Additional Exam Findings (including area of procedure): bilat wheezes Airway: Submandibular: WNL Cervical ROM: Other (limited) MP: 2 Dentition: Full (edentureless) History/ROS: No significant history except as noted Pulmonary: Pulmonary: COPD, SALAZAR and SOB Comments: O2 dep CV/HEM: CV/HEM: CAD (not a surgical candidate), HTN and NV : : None reported Hepatic: Hepatic: None reported GI: GI: GERD (controlled) Metabolic: Metabolic: Hyperlipidemia and Thyroid Musc/skel: Musc/skel: Lower Back Pain and OA/DJD Neuropsych: Neuropsych: Anxiety and Depression Comments: chronic pain Anesthetic Plan: ASA status: 4 Anesthesia: Anesthesia Evaluation and General Risk of > 500 ml blood loss (7ml/kg in children): Yes, adequate IV access and fluids planned Meds/Allergies Current Medications: Current Medications Generic Name Dose Route Start Last Admin Trade Name Freq PRN Reason Stop Dose Admin Albuterol/Ipratrop ium 3 ml 05/16/20 23:41 05/17/20 08:17 Duoneb INHALATION 3 ml Q4H PRN Administration shortness of roxann th or wheezing Sodium Chloride 1,000 mls @ 100 m ls/hr 05/16/20 19:15 05/17/20 00:04 Sodium Chloride 0.9% IV 100 mls/hr .Q10H ALEXA Administration Morphine Sulfate 4 mg 05/16/20 23:41 05/17/20 04:49 Morphine IVP 4 mg Q4H PRN Administration SEVERE PAIN Nicotine 1 patch 05/16/20 23:45 05/16/20 23:56 Nicoderm 14 Mg P atch TRANSDERMA 1 patch Q24H ALEXA Administration Fluticasone/Salmet kim 1 puff 05/17/20 08:00 05/17/20 08:18 Advair Diskus 50 0-50 INHALATION 1 puff BID.RESPIRATORY S CH Administration PFSH Anesthesia PFSH: Medical History Atypical chest pain Benign essential hypertension CAD (coronary artery disease) CVA (cerebral vascular accident) Dyslipidemia (high LDL; low HDL) History of COPD Hx of carotid stenosis SOB (shortness of breath) Thyroid cancer Surgical History H/O thyroidectomy History of back surgery Port-A-Cath in place S/P hardware removal Spine Family History Brother Leukemia Other CAD (coronary artery disease) Chronic kidney disease (CKD) Social History Smoking and tobacco status: current every day smoker cigarettes Alcohol intake: never Substance/Drug Use: never Household members: none Housing: Apartment Marital status: / Current occupational status: disabled History of recent travel: No Data Anesthesia CBC & Chem 7: 05/17/20 03:45 05/17/20 03:45 Other Labs: Laboratory Results - last 48 hr 05/16/20 05/16/20 05/16/20 20:00 20:00 20:00 WBC 16.3 H RBC 4.24 Hgb 12.9 Hct 41.8 MCV 98.6 MCH 30.4 MCHC 30.9 RDW 14.0 Plt Count 140 MPV 10.1 Neut % (Auto) 88.0 Lymph % (Auto) 5.5 [place] % (Auto) 5.6 Eos % (Auto) 0.2 Baso % (Auto) 0.2 Neut # (Auto) 14.4 H Lymph # (Auto) 0.9 [place] # (Auto) 0.9 Eos # (Auto) 0.0 Baso # (Auto) 0.0 Nucleated RBC % (auto) 0 Nucleated RBCs # 0.0 PT INR APTT Sodium 136 Potassium 4.2 Chloride 96 L Carbon Dioxide 31 H Anion Gap 13.2 BUN 9 Creatinine 0.7 Glucose 137 H Calculated Osmolality 280 L Calcium 9.7 Magnesium 1.7 Total Bilirubin 0.8 AST 28 ALT 14 Alkaline Phosphatase 112 H Creatine Kinase 58 Troponin I 6 Hour Troponin I Hi Sens Del Troponin T Baseline Troponin T 120 Minute Delta Troponin T NT-Pro-B Natriuret Pep Total Protein 6.6 Albumin 4.3 Globulin 2.3 Blood Type A Positive Rho(D) Type Positive Antibody Screen Negative 05/16/20 05/16/20 05/16/20 20:00 20:00 20:00 WBC RBC Hgb Hct MCV MCH MCHC RDW Plt Count MPV Neut % (Auto) Lymph % (Auto) [place] % (Auto) Eos % (Auto) Baso % (Auto) Neut # (Auto) Lymph # (Auto) [place] # (Auto) Eos # (Auto) Baso # (Auto) Nucleated RBC % (auto) Nucleated RBCs # PT 14.50 H INR 1.09 APTT 45.5 H Sodium Potassium Chloride Carbon Dioxide Anion Gap BUN Creatinine Glucose Calculated Osmolality Calcium Magnesium Total Bilirubin AST ALT Alkaline Phosphatase Creatine Kinase Troponin I 6 Hour Troponin I Hi Sens Del Troponin T Baseline 33 H Troponin T 120 Minute Delta Troponin T NT-Pro-B Natriuret Pep 1424 H Total Protein Albumin Globulin Blood Type Rho(D) Type Antibody Screen 05/16/20 05/17/20 05/17/20 22:30 03:45 03:45 WBC 8.5 RBC 3.57 L Hgb 11.0 L Hct 36.6 L MCV 102.5 H MCH 30.8 MCHC 30.1 RDW 13.9 Plt Count 92 L MPV 10.4 Neut % (Auto) 92.4 Lymph % (Auto) 5.2 [place] % (Auto) 1.5 Eos % (Auto) 0.0 Baso % (Auto) 0.2 Neut # (Auto) 7.9 H Lymph # (Auto) 0.4 L [place] # (Auto) 0.1 L Eos # (Auto) 0.0 Baso # (Auto) 0.0 Nucleated RBC % (auto) 0 Nucleated RBCs # 0.0 PT INR APTT Sodium Potassium Chloride Carbon Dioxide Anion Gap BUN Creatinine Glucose Calculated Osmolality Calcium Magnesium Total Bilirubin AST ALT Alkaline Phosphatase Creatine Kinase Troponin I 6 Hour 21.33 H Troponin I Hi Sens Del -11.67 L Troponin T Baseline Troponin T 120 Minute 33.21 H Delta Troponin T 0.21 NT-Pro-B Natriuret Pep Total Protein Albumin Globulin Blood Type Rho(D) Type Antibody Screen 05/17/20 05/17/20 03:45 03:45 WBC RBC Hgb Hct MCV MCH MCHC RDW Plt Count MPV Neut % (Auto) Lymph % (Auto) [place] % (Auto) Eos % (Auto) Baso % (Auto) Neut # (Auto) Lymph # (Auto) [place] # (Auto) Eos # (Auto) Baso # (Auto) Nucleated RBC % (auto) Nucleated RBCs # PT INR APTT 32.5 Sodium 136 Potassium 4.0 Chloride 98 Carbon Dioxide 30 H Anion Gap 12.0 BUN 10 Creatinine 0.8 Glucose 174 H Calculated Osmolality 282 L Calcium 8.4 L Magnesium Total Bilirubin AST ALT Alkaline Phosphatase Creatine Kinase Troponin I 6 Hour Troponin I Hi Sens Del Troponin T Baseline Troponin T 120 Minute Delta Troponin T NT-Pro-B Natriuret Pep Total Protein Albumin Globulin Blood Type Rho(D) Type Antibody Screen Cardiac Studies: No Data to Display
[2020-05-17] MEDS: sodium chloride 0.9% 1,000 ML 30 ML IV (10:53)
--- NOTE | 2020-05-17 11:19 | P.CONIM_ITS ---
Providers/Reason For Consult Consulting Physican/Specialty*: Dr. Mag Marroquin M.D. - Orthopedics Reason for Consult*: Right intertrochanteric hip fracture Requesting Physcian: Dr. Joan Aldana - Emergency department Attending Physician: Yoana Gross MD Primary Care Provider: Eliezer Mejia MD History of Present Illness History of Present Illness Sakina Lombardi is a 70 year old female who was in her usual state of health when she was walking near her home and tripped and fell. The patient states that she got her sandal tangled and fell onto the right hip with severe pain and inability to walk. She was seen by a neighbor who assisted her shortly after the fall. She denied any issues such as dizziness or other reason for her fall. She notes that usually, she walks with a walker, but sometimes, when she leaves the house, she will use a cane. She was using a cane at the time of her fall. Upon initial presentation to the emergency department, it was thought that she only had a greater trochanteric fracture, however, the CT scan demonstrated an intertrochanteric fracture. Review of Systems Const: Denies: fever(s) or chills Eyes: Denies: change in vision Card: Denies: chest pain or dyspnea on exertion Resp: Reports: productive cough; Denies: dyspnea GI: Denies: abdominal pain Musc: Reports: extremity pain (Right lower extremity secondary to fracture) Skin/Breast: Denies: erythema or changes in skin color Neuro: Denies: numbness in extremities Edgar/Lymph: Denies: easy bruising or easy bleeding Meds/Allergies Home Medications and Allergies Home Medications Medication Instructions Recorded Confirmed Last Taken Type Albutein 5 % 2.5 mg INHALATION PRN 12/04/19 05/16/20 01/09/20 History atorvastatin [Lipitor] 20 mg PO QPM 12/04/19 05/16/20 05/15/20 History buprenorphine-naloxone [Suboxone] 1 film SUBLINGUAL TID 12/04/19 05/16/20 05/16/20 History clopidogrel [Plavix] 75 mg PO DAILY 12/04/19 05/16/20 01/09/20 History nitroglycerin [Nitrostat] 0.4 mg SUBLINGUAL Q5M PRN 12/04/19 05/16/20 01/09/20 History polyethylene glycol 3350 [Miralax] 17 g PO DAILY PRN 12/04/19 05/16/20 01/09/20 History carvedilol 3.125 mg tablet 3.125 mg PO BID #60 tab 01/22/20 05/16/20 05/16/20 Rx cetirizine 10 mg tablet 10 mg PO DAILY #90 tab 02/19/20 05/16/20 05/16/20 Rx potassium chloride 20 mEq/15 mL 20 meq PO BID PRN 60 Days #1800 ml 02/27/20 0 05/16/20 05/16/20 Rx oral liquid ipratropium 0.5 mg-albuterol 3 mg 3 ml INHALATION Q4H PRN #180 ml 02/28/20 05/16/20 Unknown Rx (2.5 mg base)/3 mL nebulization soln roflumilast 500 mcg tablet 500 mcg PO DAILY #90 tab 03/12/20 05/16/20 05/16/20 Rx amlodipine 10 mg tablet 10 mg PO DAILY #90 tab 04/17/20 05/16/20 Unknown Rx levothyroxine 112 mcg capsule 112 mcg PO DAILY #90 cap 04/18/20 05/16/20 05/16/20 Rx spironolactone 50 mg tablet 50 mg PO BID #60 tab 04/19/20 05/16/20 Unknown Rx albuterol sulfate 90 mcg/actuation 2 puff INHALATION Q4H PRN #18 gm 05/09/20 05/16/20 Unknown Rx aerosol inhaler furosemide 40 mg tablet 40 mg PO DAILY #90 tab 05/15/20 05/16/20 05/16/20 Rx tizanidine 4 mg tablet 4 mg PO TID PRN #90 tab 05/15/20 05/16/20 05/16/20 Rx Voltaren 2 gm TOPICAL QID PRN 05/16/20 05/16/20 Unknown History aspirin [Aspir-81] 81 mg PO DAILY 05/16/20 05/16/20 Unknown History calcitriol 0.5 mcg PO DAILY 05/16/20 05/16/20 05/16/20 History fluticasone propion-salmeterol 1 inh INHALATION BID 05/16/20 05/16/20 05/16/20 History [Advair Diskus] Allergies Allergy/AdvReac Type Severity Reaction Status Date / Time adhesive tape Allergy ALGY-Rash Verified 05/09/20 13:16 amitriptyline Allergy ALGY-Hives Verified 05/09/20 13:16 amoxicillin Allergy ALGY-Hives Verified 05/09/20 13:16 azithromycin [From Zithromax] Allergy ALGY-Hives Verified 05/09/20 13:16 cefaclor [From Ceclor] Allergy ALGY-Hives Verified 05/09/20 13:16 cefazolin Allergy ALGY-Hives Verified 05/09/20 13:16 cephalexin Allergy ALGY-Hives Verified 05/09/20 13:16 ciprofloxacin [From Cipro] Allergy ALGY-Hives Verified 05/09/20 13:16 gabapentin Allergy ALGY-Hives Verified 05/09/20 13:16 ibuprofen Allergy ALGY-Hives Verified 05/09/20 13:16 metronidazole [From Flagyl] Allergy ALGY-Hives Verified 05/09/20 13:16 Penicillins Allergy ALGY-Hives Verified 05/09/20 13:16 Quinolones Allergy ALGY-Hives Verified 05/09/20 13:16 Sulfa (Sulfonamide Allergy ALGY-Hives Verified 05/09/20 13:16 Antibiotics) tetracycline Allergy ALGY-Hives Verified 05/09/20 13:16 trimethoprim Allergy ALGY-Hives Verified 05/09/20 13:16 Current Medications Current Medications Generic Name Dose Route Start Last Admin Trade Name Freq PRN Reason Stop Dose Admin Albuterol/Ipratropium 3 ml 05/16/20 23:41 05/17/20 08:17 Duoneb INHALATION 3 ml Q4H PRN Administration shortness of breath or wheezing Sodium Chloride 1,000 mls @ 100 mls/hr 05/16/20 19:15 05/17/20 00:04 Sodium Chloride 0.9% IV 100 mls/hr .Q10H ALEXA Administration Sodium Chloride 1,000 mls @ 30 mls/hr 05/17/20 10:30 05/17/20 10:53 Sodium Chloride 0.9% IV 05/18/20 10:29 30 mls/hr .Q24H ALEXA Administration Morphine Sulfate 4 mg 05/16/20 23:41 05/17/20 04:49 Morphine IVP 4 mg Q4H PRN Administration SEVERE PAIN Nicotine 1 patch 05/16/20 23:45 05/16/20 23:56 Nicoderm 14 Mg Patch TRANSDERMA 1 patch Q24H ALEXA Administration Fluticasone/Salmeterol 1 puff 05/17/20 08:00 05/17/20 08:18 Advair Diskus 500-50 INHALATION 1 puff BID.RESPIRATORY ALEXA Administration PFSH Acute PFSH: Medical History Atypical chest pain Benign essential hypertension CAD (coronary artery disease) CVA (cerebral vascular accident) Dyslipidemia (high LDL; low HDL) History of COPD Hx of carotid stenosis SOB (shortness of breath) Thyroid cancer Surgical History H/O thyroidectomy History of back surgery Port-A-Cath in place S/P hardware removal Spine Family History Brother Leukemia Other CAD (coronary artery disease) Chronic kidney disease (CKD) Social History Smoking and tobacco status: current every day smoker cigarettes Alcohol intake: never Substance/Drug Use: never Household members: none Housing: Apartment Marital status: / Current occupational status: disabled History of recent travel: No Vitals/I&O/Wt Last Vital Signs Temp 98.4 F 05/17/20 10:37 Pulse 98 05/17/20 10:37 Resp 20 H 05/17/20 10:37 BP 156/96 05/17/20 10:37 Pulse Ox 93 05/17/20 10:37 05/16/20 05/17/20 05/17/20 22:59 06:59 14:59 Intake Total 390 / 390 Output Total 300 / 300 Balance 90 / 90 Weight last 48 hrs Weight 92 lb Weight 92 lb Physical Exam Const: COMMON NORMALS: no acute distress, patient oriented x3 and alert GENERAL APPEARANCE: cooperative and comfortable ORIENTATION/CONSCIOUSNESS: Yes awake HENMT: COMMON NORMALS: normocephalic and atraumatic HEAD & SCALP: normocephalic and atraumatic Eye: GENERAL EYE: appearance normal, both eyes and all related structures Chest: COMMONS NORMALS: normal inspection of the chest Resp: COMMON NORMALS: normal respiratory effort EFFORT & INSPECTION: Yes able to speak in complete sentences and Yes symmetric chest movement Extremity: GENERAL: Yes normal exam except as noted RIGHT LOWER EXTREMITY: Yes hip joint (There is pain to range of motion.) Right hip: Yes inspection (No significant swelling about the hip.), Yes palpation (There is pain to palpation about the hip.), Yes ROM (Not tested secondary to fracture.) and Yes neurovascular exam (Intact) Neuro: COMMON NORMALS: patient oriented x3 SENSORIUM/ORIENTATION: Yes alert Psych: COMMON NORMALS: mental status grossly normal APPEARANCE: Yes grossly normal ATTITUDE: Yes calm and Yes engaged ATTENTION/CONCENTRATION: Yes attention grossly intact Skin: COMMON NORMALS: no rashes or lesions noted GENERAL SKIN EXAM: no rashes or lesions noted Data Imaging^: Xray Ortho: I personally reviewed and interpreted this imaging study as follows: My impression: I have personally reviewed the patient's CT and x-ray images. There is a nondisplaced intertrochanteric right hip fracture. This will require open reduction internal fixation. A&P Assessment and plan (1) Nondisplaced intertrochanteric fracture of right femur: The patient was admitted through the emergency department late last evening with diagnosis of an intertrochanteric hip fracture. The fracture was not visualized on plain film, but secondary to the patient's significant symptoms, a CT scan was obtained. She was found to have a nondisplaced intertrochanteric hip fracture. She was admitted to the medical service for multiple medical issues. She was consented for surgery. Plans are for open reduction internal fixation of a right nondisplaced intertrochanteric hip fracture. Status: Acute Consult Attestations Medical Necessity Statement: Patient will require greater than a 2-day stay to address her intertrochanteric hip fracture surgically. Coding Level of Care Code Acute Petroleum Analyst for [facility] Fwd Exam Comprehensive Diagnoses Nondisplaced intertrochanteric fracture of right femur S72.144A
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
[2020-05-17] MEDS: midazolam 1 mg/mL INJ 2 mL 2 MG IVP (11:29)
[2020-05-17] MEDS: vancomycin 1,000 MG in sodium chloride 0.9% 250 ML 250 MG IV (11:45)
[2020-05-17] MEDS: vancomycin 1,000 MG SDV 1000 MG IRRIGATION (13:32)
--- NOTE | 2020-05-17 13:51 | PM.OP ---
Operative Report Date of procedure: May 17, 2020 Pre-op Diagnosis: Right intertrochanteric hip fracture Post-op diagnosis: same Procedure Done: Open reduction internal fixation right intertrochanteric hip fracture utilizing the following implants: The Lolly gamma 3 total hip system with a 11 x 180 mm x 130 degree gamma 3 trochanteric nail, a size 10.5 x 95 mm lag screw into the femoral head and a distal locking screw size 5 mm x 32.5 mm Specimens removed/disposition: None Pathology: none sent Surgeon: Mag Marroquin Child Neurologist: [facility] OR technicians Anesthesia: General (MAC to general intubated) Estimated blood loss (mL): 25 IV fluids (mL): 300 Urine output (mL): 400 Complications: None Findings: Intertrochanteric hip fracture Condition: critical (Secondary to pulmonary issues) Disposition: ICU Brief History: This 70-year-old woman presented through the emergency department last evening with a nondisplaced intertrochanteric hip fracture. This was identified on CT scan. She was admitted to the floor for optimization for surgery. The patient was scheduled for the surgical intervention today. She was taken to the operating room initially with plans for a MAC and local anesthesia, however, she was not able to tolerate this nor was she able to tolerate LMA. Therefore the patient was intubated and secondary to her lung conditions, she will likely require extended intubation and ICU treatments. Attempts will be made to extubate her intraoperatively, but at this point, she has not been extubated. Procedure: Patient is brought to the operating theater. Initially, attempt was made to do a MAC with local anesthetic, however, the patient was not able to be adequately ventilated. LMA also resulted in inadequate ventilation. Therefore, the decision was made to intubate the patient. After undergoing adequate general anesthesia with intubation, the patient was transferred to the fracture table, positioned on the table and fluoroscopic guidance obtained throughout the surgical procedure. Prior to the commencement of the surgical procedure, a surgical pause was performed. At the time of the surgical pause, we confirmed the site and side of surgery as well as preoperative surgical markings and appropriate and timely administration of IV antibiotics, vancomycin 1 g. Availability of equipment was also confirmed. Fluoroscopy was used to confirm the fracture was appropriately reduced in both AP and lateral planes. An incision was then made slightly above the greater trochanter to allow access to the greater trochanter. An awl was used to enter the greater trochanter and a guidewire was subsequently placed. Once the guidewire was confirmed to be in appropriate position in AP and lateral planes, reaming was accomplished over this to allow for the proximal diameter of the nail. Guidewire was then removed. An 11 mm x 180 mm x 130 degree gamma 3 trochanteric nail was placed into appropriate position with positioning being confirmed in AP and lateral planes on the x-ray. It passed without difficulty. Guidewire was then passed through the jigging system into the femoral head. We wanted to be center or slightly inferior and posterior to center. Guidewire was placed into appropriate position. Once the guidewire was in appropriate position and this position was confirmed by x-ray. This was then measured and we chose a 10.5 mm x 95 mm lag screw. We reamed to allow for the lag screw to be placed. The 95 mm lag screw was then passed into the femoral head through the trochanteric nail. This was passed uneventfully and again position was confirmed in AP and lateral planes. The set screw was then placed in position, tightened completely, and subsequently backed off one-quarter turn. The construct was left in position and attention was directed distally. Cannulas were again used to determine appropriate placement for the distal screw. This was placed in position without difficulty. It was measured off of the drill. The appropriate length screw was then obtained and placed in position without difficulty. Once the screw was in position, we confirmed appropriate placement of the components, and we removed the jigging system. Attention was then directed to closure. The hip was copiously irrigated with normal saline with antibiotics. Following this it was dried and closed. Tensor fascia jenaro was closed proximally with 0 Vicryl in an interrupted fashion. Subcutaneous tissues were closed with 2-0 Monocryl, and the skin was closed with a continuous 3-0 Monocryl subcuticular stitch. This was then covered with Exofin, Steri-strips, and Tegaderm. The patient was removed from the fracture table and returned to recovery in satisfactory condition. The patient will be discharged to the ICU secondary to pulmonary issues. There were no specimens obtained.
--- NOTE | 2020-05-17 15:04 | PC.NURSE ---
1000 Patient wanted to speak to Dr. Gross. Patient wanted to discuss her heart condition. Mayer cath was attempted three times by noc shift. Reported to OR.
[2020-05-17] MEDS: morphine 4 mg/mL SDV 1 mL 2 MG IVP ×2 (15:16→20:08)
--- NOTE | 2020-05-17 18:50 | PC.NURSE ---
PASSCODE SET UP WITH FAMILY OF [id number]
[2020-05-18] VITALS (20 sets, daily range): BP systolic 99–192; BP diastolic 54–81; PULSE 85–105; RESP 14–28; TEMP 36.5–37.3; O2SAT 93–100
[2020-05-18] MEDS: nicotine 14 mg Patch 1 PATCH TRANSDERMA (00:03)
[2020-05-18] MEDS: morphine 4 mg/mL SDV 1 mL 2 MG IVP ×6 (00:03→20:59)
[2020-05-18] MEDS: sodium chloride 0.9% 1,000 ML 100 ML IV ×2 (02:13→12:19)
[2020-05-18 05:58] LABS: Basophils % 0.2 %; Eosinophils # 0.1 10^3/uL (0.0-0.8); Hematocrit 32.2 % (37.0-47.0); Hemoglobin 9.6 g/dL (11.5-15.3); Lymphocytes # 0.8 10^3/uL (0.8-4.8); Lymphocytes % 7.8 %; Mean Corpuscular HGB Conc 29.8 g/dL (30.0-36.0); Mean Corpuscular Hemoglobin 30.4 pg (28.0-34.0); Mean Corpuscular Volume 101.9 fL (81-99); Mean Platelet Volume 10.1 fL (7.4-10.4); Monocytes # 0.8 10^3/uL (0.2-0.9); Monocytes % 7.9 %; Neutrophils # 8.1 10^3/uL (1.8-7.7); Neutrophils % 82.8 %; Nucleated Red Blood Cells % 0 %; Platelet Count 74 10^3/cmm (130-400); Red Blood Count 3.16 10^6/uL (4.1-5.3); Red Cell Distribution Width 14.1 % (12.1-15.1); White Blood Count 9.8 10^3/uL (4.0-10.0)
[2020-05-18 06:21] LABS: Alanine Aminotransferase 12 U/L (0-33); Albumin Level 3.4 g/dL (3.5-5.2); Alkaline Phosphatase 75 IU/L (35-105); Aspartate Amino Transferase 24 U/L (0-32); Blood Urea Nitrogen 12 mg/dL (8-23); Calcium 8.1 mg/dL (8.5-10.5); Carbon Dioxide 28 mmol/L (22-29); Chloride 105 mmol/L (98-107); Globulin 1.9 g/dL (1.3-4.6); Glucose 98 mg/dL (65-115); Osmolality Calculated 284 mOsm/kg (285-295); Sodium 139 mmol/L (136-145); Total Bilirubin 0.6 mg/dL (0.15-1.2); Total Protein 5.3 g/dL (6.6-8.7)
[2020-05-18] MEDS: aspirin 325 mg EC Tablet PO (08:45)
[2020-05-18] MEDS: FUROsemide 40 mg Tablet PO (08:45)
[2020-05-18] MEDS: levothyroxine 112 mcg Tablet PO (08:45)
[2020-05-18] MEDS: roflumilast 500 mcg Tablet PO (08:45)
[2020-05-18] MEDS: ipratropium-albuterol 3 mL Neb INHALATION ×2 (08:45→20:12)
[2020-05-18] MEDS: spironolactone 25 mg Tablet 50 MG PO ×2 (08:45→17:50)
[2020-05-18] MEDS: vancomycin 750 MG in sodium chloride 0.9% 250 ML 250 MG IV (11:02)
[2020-05-18] MEDS: tizanidine 4 mg Tablet PO ×2 (11:12→21:01)
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
--- NOTE | 2020-05-18 12:39 | PM.PN ---
Subjective Subjective: Interval history: The patient is up in a chair eating. She is hopeful that she will be able to go to prison. We are still awaiting social service evaluation. Medications: Reviewed: Yes Vitals/I&O/Wt Last Vital Signs Temp 99.2 F 05/18/20 08:00 Pulse 96 05/18/20 10:00 Resp 25 H 05/18/20 12:20 BP 132/58 05/18/20 10:00 Pulse Ox 93 05/18/20 12:20 05/17/20 05/18/20 05/18/20 22:59 06:59 14:59 Intake Total 300 / 1650 1000 / 2650 1118 / 1118 Output Total 300 / 700 950 / 1650 Balance 0 / 950 50 / 1000 1118 / 1118 Weight last 48 hrs Weight 107 lb Weight 92 lb Weight 92 lb Physical Exam Const: COMMON NORMALS: no acute distress, average body habitus, patient oriented x3 and alert GENERAL APPEARANCE: cooperative and comfortable ORIENTATION/CONSCIOUSNESS: Yes awake HENMT: COMMON NORMALS: normocephalic and atraumatic HEAD & SCALP: normocephalic and atraumatic Eye: GENERAL EYE: appearance normal, both eyes and all related structures Chest: COMMONS NORMALS: normal inspection of the chest Resp: COMMON NORMALS: normal respiratory effort EFFORT & INSPECTION: Yes able to speak in complete sentences and Yes symmetric chest movement Extremity: GENERAL: Yes normal exam except as noted RIGHT LOWER EXTREMITY: Yes hip joint Right hip: Yes inspection (There is no swelling. Dressings are dry and intact.), Yes palpation (Minimal to no tenderness to to palpation) and Yes neurovascular exam (Intact distal to the fracture site) Neuro: COMMON NORMALS: patient oriented x3 SENSORIUM/ORIENTATION: Yes alert Psych: COMMON NORMALS: mental status grossly normal APPEARANCE: Yes grossly normal ATTITUDE: Yes calm and Yes engaged ATTENTION/CONCENTRATION: Yes attention grossly intact Skin: COMMON NORMALS: no rashes or lesions noted GENERAL SKIN EXAM: no rashes or lesions noted Urinary Catheter Management^: Mayer: Cath Placed During This Visit: yes Reason for Continuing Indwelling Catheter: Accurate Measurement of Urinary Output in Critically Ill Patients Urinary Catheter Date of Insertion: 05/17/20 Urinary Catheter Time of Insertion: 14:07 Data : 05/18/20 05:50 05/18/20 05:50 A&P Assessment and plan (1) Nondisplaced intertrochanteric fracture of right femur: The patient underwent and Open reduction internal fixation of a right nondisplaced intertrochanteric hip fracture last evening. She is up in a chair and doing very well. She did require ICU admission following her surgical intervention secondary to significant lung issues and the need for monitoring these. She now appears ready for discharge when medically appropriate. Status: Acute Attestations Medical Necessity Statement*: Patient requires more than 2 midnights for postoperative rehabilitation, pain management, as well as the definitive treatment of her fracture. Coding Level of Care Code Acute Multimedia Programmer for [facility] Fwd Diagnoses Nondisplaced intertrochanteric fracture of right femur S72.144A
[2020-05-18] MEDS: atorvastatin 40 mg Tablet 20 MG PO (17:50)
--- NOTE | 2020-05-18 19:51 | PC.NURSE ---
pt transferred to [facility] via bed. report called to alejandra valdez.
[2020-05-19] VITALS (23 sets, daily range): BP systolic 68–128; BP diastolic 31–68; PULSE 75–112; RESP 12–24; TEMP 36.4–36.9; O2SAT 91–99
[2020-05-19] MEDS: nicotine 14 mg Patch 1 PATCH TRANSDERMA ×2 (00:06→23:17)
[2020-05-19] MEDS: sodium chloride 0.9% 1,000 ML 100 ML IV (00:06)
[2020-05-19] MEDS: ipratropium-albuterol 3 mL Neb INHALATION ×4 (02:10→20:42)
[2020-05-19] MEDS: morphine 4 mg/mL SDV 1 mL 2 MG IVP ×5 (02:19→23:21)
[2020-05-19] MEDS: roflumilast 500 mcg Tablet PO (08:12)
[2020-05-19] MEDS: spironolactone 25 mg Tablet 50 MG PO ×2 (08:12→16:56)
[2020-05-19] MEDS: FUROsemide 40 mg Tablet PO (08:13)
[2020-05-19] MEDS: aspirin 325 mg EC Tablet PO (08:13)
[2020-05-19] MEDS: levothyroxine 112 mcg Tablet PO (08:13)
[2020-05-19] MEDS: tizanidine 4 mg Tablet PO ×2 (10:27→19:54)
--- NOTE | 2020-05-19 13:34 | P.PN_ITS ---
Subjective Subjective: Interval history: The patient continues to complain of pain. She is comfortable appearing, however, sitting in a chair. Upon admission, the patient was on Suboxone. I will defer to the hospitalist team regarding pain medications. Medications: Reviewed: Yes Vitals/I&O/Wt Last Vital Signs Temp 97.6 F 05/19/20 12:00 Pulse 80 05/19/20 12:00 Resp 12 05/19/20 12:00 BP 68/31 05/19/20 12:00 Pulse Ox 91 05/19/20 12:00 05/18/20 05/19/20 05/19/20 22:59 06:59 14:59 Intake Total 2023 / 4073 480 / 4553 358 / 358 Output Total 1850 / 2850 1999 / 1999 Balance 173 / 1223 480 / 1703 -1642 / -1642 Weight last 48 hrs Weight 107 lb Weight 107 lb Physical Exam Const: COMMON NORMALS: no acute distress, average body habitus, patient oriented x3 and alert GENERAL APPEARANCE: cooperative and comfortable ORIE NTATION/CONSCIOUSNESS: Yes awake HENMT: COMMON NORMALS: normocephalic and atraumatic HEAD & SCALP: normocephalic and atraumatic Eye: GENERAL EYE: appearance normal, both eyes and all related structures Chest: COMMONS NORMALS: normal inspection of the chest Resp: COMMON NORMALS: normal respiratory effort EFFORT & INSPECTION: Yes able to speak in complete sentences and Yes symmetric chest movement Extremity: GENERAL: Yes normal exam except as noted RIGHT LOWER EXTREMITY: Yes hip joint (Dressings are dry and intact.) Right hip: Yes inspection (There is some swelling but it is minimal.), Yes palpation (Minimal tenderness to palpation), Yes neurovascular exam (Intact distal to the fracture site.) and Yes other (There is no evidence of drainage or infection.) Neuro: COMMON NORMALS: patient oriented x3 SENSORIUM/ORIENTATION: Yes alert Psych: COMMON NORMALS: mental status grossly normal APPEARANCE: Yes grossly normal ATTITUDE: Yes calm and Yes engaged ATTENTION/CONCENTRATION: Yes attention grossly intact Skin: COMMON NORMALS: no rashes or lesions noted GENERAL SKIN EXAM: no rashes or lesions noted Urinary Catheter Management^: Mayer: Cath Placed During This Visit: yes Reason for Continuing Indwelling Catheter: Required Immobilization for Trauma or Surgery or Anesthesia Urinary Catheter Date of Insertion: 06/19/20 Urinary Catheter Time of Insertion: 14:07 Data : 05/18/20 05:50 05/18/20 05:50 A&P Assessment and plan (1) Nondisplaced intertrochanteric fracture of right femur: The patient underwent and Open reduction internal fixation of a right nondisplaced intertrochanteric hip fracture, and initially, she was admitted to the ICU. She is now transferred back to the floor and working with physical therapy. She will likely require shelter at the time of discharge. Status: Acute Attestations Medical Necessity Statement*: Patient continues require inpatient medical treatments and evaluation following open reduction internal fixation of right hip fracture. Coding Level of Care Code Acute Vegetable Inspector for [facility] Diagnoses Nondisplaced intertrochanteric fracture of right femur S72.144A
[2020-05-19] MEDS: atorvastatin 40 mg Tablet 20 MG PO (16:55)
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
--- NOTE | 2020-05-19 19:38 | PC.NURSE ---
Patient set up most of day, tolerated well. Has sukhjinder hose on bilateral to knees. In bed patient has foot pumps on both feet. Patient refused her ice pack to her hip, stated it made her too cold. Patient's breath sounds improved since beginning of shift. IV fluids was held, and urine output was monitored. Patient had large amount of urine in reyes bag 2000 times two. Patient is pleasant and eager to go home.
[2020-05-20] VITALS (13 sets, daily range): BP systolic 91–173; BP diastolic 52–76; PULSE 72–103; RESP 16–22; TEMP 36.5–36.8; O2SAT 93–99
[2020-05-20] MEDS: morphine 4 mg/mL SDV 1 mL 2 MG IVP (04:03)
[2020-05-20] MEDS: tizanidine 4 mg Tablet PO ×3 (04:04→21:48)
[2020-05-20 04:22] LABS: Basophils % 0.4 %; Eosinophils # 0.4 10^3/uL (0.0-0.8); Eosinophils % 5.4 %; Hematocrit 28.2 % (37.0-47.0); Hemoglobin 8.8 g/dL (11.5-15.3); Lymphocytes # 1.3 10^3/uL (0.8-4.8); Lymphocytes % 16.8 %; Mean Corpuscular HGB Conc 31.2 g/dL (30.0-36.0); Mean Corpuscular Hemoglobin 30.4 pg (28.0-34.0); Mean Corpuscular Volume 97.6 fL (81-99); Mean Platelet Volume 10.9 fL (7.4-10.4); Monocytes # 0.9 10^3/uL (0.2-0.9); Monocytes % 11.5 %; Neutrophils % 65.5 %; Nucleated Red Blood Cells % 0 %; Platelet Count 92 10^3/cmm (130-400); Red Blood Count 2.89 10^6/uL (4.1-5.3); Red Cell Distribution Width 13.9 % (12.1-15.1); White Blood Count 7.6 10^3/uL (4.0-10.0)
[2020-05-20 04:38] LABS: Alanine Aminotransferase 12 U/L (0-33); Albumin Level 3.2 g/dL (3.5-5.2); Alkaline Phosphatase 79 IU/L (35-105); Anion Gap 12.1 (5-19); Aspartate Amino Transferase 23 U/L (0-32); Blood Urea Nitrogen 9 mg/dL (8-23); Calcium 7.8 mg/dL (8.5-10.5); Carbon Dioxide 31 mmol/L (22-29); Chloride 100 mmol/L (98-107); Glucose 95 mg/dL (65-115); Osmolality Calculated 286 mOsm/kg (285-295); Potassium 3.1 mmol/L (3.5-5.1); Sodium 140 mmol/L (136-145); Total Bilirubin 0.5 mg/dL (0.15-1.2); Total Protein 5.2 g/dL (6.6-8.7)
[2020-05-20] MEDS: albuterol 8 gm MDI 2 PUFF INHALATION ×3 (08:10→19:44)
[2020-05-20] MEDS: potassium chloride ER 10 mEq Tablet 40 MEQ PO (08:57)
[2020-05-20] MEDS: aspirin 325 mg EC Tablet PO (08:59)
[2020-05-20] MEDS: levothyroxine 112 mcg Tablet PO (08:59)
[2020-05-20] MEDS: roflumilast 500 mcg Tablet PO (08:59)
[2020-05-20] MEDS: spironolactone 25 mg Tablet 50 MG PO ×2 (09:00→17:39)
[2020-05-20] MEDS: FUROsemide 40 mg Tablet PO (09:00)
[2020-05-20] MEDS: HYDROcodone-acetaminophen 5-325 mg Tablet 1 TAB PO ×4 (09:01→21:47)
[2020-05-20] MEDS: polyethylene glycol 3350 Pkt 17 gm PO (09:02)
[2020-05-20] MEDS: potassium chloride oral liq 20 mEq/15 mL UDC 40 MEQ PO (09:19)
--- NOTE | 2020-05-20 11:00 | PC.NURSE ---
patient requesting additional pain medication. Dr Cuevas notified
--- NOTE | 2020-05-20 11:06 | PC.RESP ---
Smoking Cessation information and a schedule of classes sent to patient.
--- NOTE | 2020-05-20 11:48 | PC.NURSE ---
still haven't received order for additional pain meds. patient still requesting additional pain medications. Dr Cuevas notified.
--- NOTE | 2020-05-20 11:52 | PC.NURSE ---
rcvd order from Dr Cuevas for Ultram.
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
[2020-05-20] MEDS: TRAMadol 50 mg Tablet PO ×2 (12:03→20:07)
[2020-05-20] MEDS: atorvastatin 40 mg Tablet 20 MG PO (17:36)
[2020-05-20] MEDS: nicotine 14 mg Patch 1 PATCH TRANSDERMA (23:53)
[2020-05-21] VITALS (7 sets, daily range): BP systolic 96–187; BP diastolic 48–76; PULSE 69–92; RESP 19–22; TEMP 36.3–36.7; O2SAT 96–99
[2020-05-21] MEDS: HYDROcodone-acetaminophen 5-325 mg Tablet 1 TAB PO ×3 (02:12→13:27)
[2020-05-21 02:49] LABS: Basophils % 0.3 %; Eosinophils # 0.4 10^3/uL (0.0-0.8); Eosinophils % 6.7 %; Hematocrit 27.9 % (37.0-47.0); Hemoglobin 8.7 g/dL (11.5-15.3); Lymphocytes # 1.1 10^3/uL (0.8-4.8); Lymphocytes % 17.5 %; Mean Corpuscular HGB Conc 31.2 g/dL (30.0-36.0); Mean Corpuscular Hemoglobin 30.4 pg (28.0-34.0); Mean Corpuscular Volume 97.6 fL (81-99); Monocytes # 0.8 10^3/uL (0.2-0.9); Monocytes % 13.1 %; Neutrophils # 3.9 10^3/uL (1.8-7.7); Neutrophils % 61.9 %; Nucleated Red Blood Cells % 0 %; Platelet Count 100 10^3/cmm (130-400); Red Blood Count 2.86 10^6/uL (4.1-5.3); Red Cell Distribution Width 14.1 % (12.1-15.1); White Blood Count 6.3 10^3/uL (4.0-10.0)
[2020-05-21 03:01] LABS: Alanine Aminotransferase 15 U/L (0-33); Albumin Level 3.1 g/dL (3.5-5.2); Alkaline Phosphatase 76 IU/L (35-105); Anion Gap 13.4 (5-19); Aspartate Amino Transferase 26 U/L (0-32); Blood Urea Nitrogen 7 mg/dL (8-23); Calcium 8.1 mg/dL (8.5-10.5); Carbon Dioxide 32 mmol/L (22-29); Chloride 94 mmol/L (98-107); Globulin 2.7 g/dL (1.3-4.6); Glucose 125 mg/dL (65-115); Magnesium 1.4 mg/dL (1.7-2.3); Osmolality Calculated 279 mOsm/kg (285-295); Phosphorus 4.8 mg/dL (2.5-4.5); Potassium 3.4 mmol/L (3.5-5.1); Sodium 136 mmol/L (136-145); Total Bilirubin 0.4 mg/dL (0.15-1.2); Total Protein 5.8 g/dL (6.6-8.7)
[2020-05-21] MEDS: FUROsemide 40 mg Tablet PO (09:02)
[2020-05-21] MEDS: roflumilast 500 mcg Tablet PO (09:02)
[2020-05-21] MEDS: aspirin 325 mg EC Tablet PO (09:02)
[2020-05-21] MEDS: levothyroxine 112 mcg Tablet PO (09:02)
[2020-05-21] MEDS: spironolactone 25 mg Tablet 50 MG PO (09:02)
[2020-05-21] MEDS: polyethylene glycol 3350 Pkt 17 gm PO (09:02)
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
--- NOTE | 2020-05-21 14:32 | PC.NURSE ---
Report called to [facility] and given to GABRIELE Carver. Waiting on transport. Patient's Nitro put in SNF packet
--- NOTE | 2020-05-21 14:52 | PC.NURSE ---
notified patient's son Ye that patient will be discharge to [facility] today
--- NOTE | 2020-05-21 17:02 | PM.PN ---
Subjective Subjective: Interval history: The patient was seen prior to discharge. She was doing well, but still complaining of pain. This is being addressed for her. She is pending discharge to senior living based upon COVID testing. Medications: Reviewed: Yes Vitals/I&O/Wt Last Vital Signs Temp 97.8 F 05/21/20 15:36 Pulse 92 05/21/20 15:36 Resp 22 H 05/21/20 15:36 BP 146/62 05/21/20 15:36 Pulse Ox 96 05/21/20 15:36 05/21/20 05/21/20 05/21/20 06:59 14:59 22:59 Intake Total 720 / 720 Output Total 1000 / 2000 1200 / 1200 Balance -1000 / -900 -480 / -480 Weight last 48 hrs Weight 104 lb 6 oz Weight 102 lb 9.6 oz Physical Exam Const: COMMON NORMALS: no acute distress, average body habitus, patient oriented x3 and alert GENERAL APPEARANCE: cooperative and comfortable ORIENTATION/CONSCIOUSNESS: Yes awake HENMT: COMMON NORMALS: normocephalic and atraumatic HEAD & SCALP: normocephalic and atraumatic Eye: GENERAL EYE: appearance normal, both eyes and all related structures Chest: COMMONS NORMALS: normal inspection of the chest Resp: COMMON NORMALS: normal respiratory effort EFFORT & INSPECTION: Yes able to speak in complete sentences and Yes symmetric chest movement Extremity: GENERAL: Yes normal exam except as noted RIGHT LOWER EXTREMITY: Yes hip joint Right hip: Yes inspection (There is minimal swelling in the patient's right thigh.), Yes palpation (Minimal tenderness to palpation.) and Yes neurovascular exam (Intact distal to the fracture site.) Neuro: COMMON NORMALS: patient oriented x3 SENSORIUM/ORIENTATION: Yes alert Psych: COMMON NORMALS: mental status grossly normal APPEARANCE: Yes grossly normal ATTITUDE: Yes calm and Yes engaged ATTENTION/CONCENTRATION: Yes attention grossly intact Skin: COMMON NORMALS: no rashes or lesions noted GENERAL SKIN EXAM: no rashes or lesions noted Urinary Catheter Management^: Mayer: Cath Placed During This Visit: yes, but has since been removed by the nurse Reason for Continuing Indwelling Catheter: Decision to DC Catheter Urinary Catheter Date of Insertion: 05/17/20 Urinary Catheter Time of Insertion: 14:07 Date Urinary Catheter Removed: 05/21/20 Time Urinary Catheter Discontinued: 12:30 Data : 05/21/20 02:15 05/21/20 02:15 A&P Assessment and plan (1) Nondisplaced intertrochanteric fracture of right femur: The patient underwent and Open reduction internal fixation of a right nondisplaced intertrochanteric hip fracture, and initially, she was admitted to the ICU. She is now transferred back to the floor and working with physical therapy. The patient is working with physical therapy. She is ready for discharge to senior living pending COVID testing which was negative. She therefore will be transferred today. Status: Acute Attestations Medical Necessity Statement*: Patient is ready for discharge to senior living. Her COVID was negative. 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
== END 2020-05-21 15:36 | disposition skilled nursing facility (03) | DRG 481 ==
LOC: ER 22:24 → MEDSURG 23:11 → ICU 05-17 14:27 → MEDSURG 05-18 19:42
PROVIDERS: Emergency Medicine; Specialist; Student in an Organized Health Care Education/Training Program; Admitting Provider Internal Medicine; PCP Internal Medicine; Visit Provider Family Medicine
PROC: 0SS904Z Reposition Right Hip Joint with Internal Fixation Device, Open Approach (ICD-10-PCS; CPT 27245; principal; 2020-05-17 11:50)
DX: S72.144A Nondisplaced intertrochanteric fracture of right femur, initial encounter for closed fracture (principal); I24.8 Other forms of acute ischemic heart disease; G89.29 Other chronic pain; I25.10 Atherosclerotic heart disease of native coronary artery without angina pectoris; J44.9 Chronic obstructive pulmonary disease, unspecified; F17.210 Nicotine dependence, cigarettes, uncomplicated; E78.5 Hyperlipidemia, unspecified; Z86.73 Personal history of transient ischemic attack (TIA), and cerebral infarction without residual deficits; Z79.82 Long term (current) use of aspirin; Z79.02 Long term (current) use of antithrombotics/antiplatelets; Z11.59 Encounter for screening for other viral diseases; Z99.81 Dependence on supplemental oxygen; W01.0XXA Fall on same level from slipping, tripping and stumbling without subsequent striking against object, initial encounter; Y92.009 Unspecified place in unspecified non-institutional (private) residence as the place of occurrence of the external cause; I10 Essential (primary) hypertension
CPT/HCPCS: 12345; 36415; 36591; 51702; 70450; 71045; 72131; 72192; 73502; 73552; 73562; 73700; 76000; 80048; 80053; 82550; 83735; 83880; 84100; 84484; 85025; 85610; 85730; 86850; 86900; 87635; 93005; 94640; 94660; 96365; 96375; 97110; 97116; 97161; 97166; 97530; 97535; 99283; C1713; J0131; J1170; J2001; J2250; J2270; J2370; J2405; J2704; J2930; J3010; J3370; J3490; J3535; J7030; J7050

== ENCOUNTER 2020-06-17 12:12 | Outpatient (RCR) | payer MEDICAID, SELFPAY ==
[2020-06-17 13:33] LABS: Chol HDL Ratio 3.19 mg/dL (0.0-4.40); Cholesterol 185 mg/dL (0-200); HDL Cholesterol 58 mg/dL (60-100); LDL Cholesterol Calculated 114 mg/dL (50-129); LDL HDL Ratio 1.97 RATIO (0.00-3.22); Triglycerides 67 mg/dL (0-150)
== END 2020-06-28 23:59 | disposition home or self-care (01) ==
LOC: GILAB 12:12
PROVIDERS: Internal Medicine Cardiovascular Disease; PCP Internal Medicine; Visit Provider Internal Medicine
DX: Z95.828 Presence of other vascular implants and grafts (principal)
CPT/HCPCS: 36591; 73502; 80061; 96368; J1642

== ENCOUNTER → 2020-07-24 12:15 | Day surgery (SDC) | payer MEDICAID, SELFPAY ==
[2020-07-24 12:45] VITALS: BP 183/74; PULSE 78; RESP 18; TEMP 37.2; O2SAT 100
== END ==
PROVIDERS: PCP Internal Medicine; Visit Provider Internal Medicine
DX: Z45.2 Encounter for adjustment and management of vascular access device (principal)
CPT/HCPCS: 73502; 96368; 96523; J1642

== ENCOUNTER → 2020-08-23 12:28 | Day surgery (SDC) | payer MEDICAID, SELFPAY | PROVIDERS: PCP Internal Medicine; Visit Provider Internal Medicine | DX: Z45.2 Encounter for adjustment and management of vascular access device (principal) | CPT/HCPCS: 96368; 96523 ==

== ENCOUNTER → 2020-09-25 12:37 | Day surgery (SDC) | payer MEDICAID, SELFPAY ==
[2020-09-25 13:04] VITALS: BP 180/78; PULSE 93; RESP 18; TEMP 36.8; O2SAT 100
== END ==
PROVIDERS: PCP Internal Medicine; Visit Provider Internal Medicine
DX: Z45.2 Encounter for adjustment and management of vascular access device (principal)
CPT/HCPCS: 96368; 96523

== ENCOUNTER 2020-10-22 12:45 | Outpatient (RCR) | payer MEDICAID, SELFPAY ==
[2020-10-22 13:32] VITALS: BP 109/87; PULSE 90; RESP 16; TEMP 36.8; O2SAT 97
== END 2020-10-28 23:59 | disposition home or self-care (01) ==
LOC: OPS 12:45
PROVIDERS: PCP Internal Medicine; Visit Provider Internal Medicine
DX: Z95.828 Presence of other vascular implants and grafts (principal)
CPT/HCPCS: 96368; 96523

== ENCOUNTER → 2020-11-18 13:24 | Day surgery (SDC) | payer MEDICAID, SELFPAY ==
[2020-11-18 13:31] VITALS: BP 171/98; PULSE 81; RESP 18; TEMP 36.7; O2SAT 100; BMI 18.1
== END ==
PROVIDERS: PCP Internal Medicine; Visit Provider Internal Medicine
DX: Z95.828 Presence of other vascular implants and grafts (principal)
CPT/HCPCS: 96368; 96523

== ENCOUNTER → 2020-12-31 13:25 | Day surgery (SDC) | payer MEDICAID, SELFPAY ==
[2020-12-31 13:43] VITALS: BP 187/82; PULSE 95; RESP 20; TEMP 36.9; O2SAT 100
--- NOTE | 2020-12-31 13:53 | SUR.PREOP ---
1330 Post accesed without difficulty and immediate blood return noted. flushed per protocol and discontinued gripper needle and 2x2 dressing applied with taper per patient wishes. she said she'd take off shortly since she has allergy tendencies to tape./
== END ==
PROVIDERS: PCP Internal Medicine; Visit Provider Internal Medicine
DX: Z95.828 Presence of other vascular implants and grafts (principal)
CPT/HCPCS: 96368; 96523

== ENCOUNTER → 2021-01-23 15:00 | Outpatient (BNVA) | payer MEDICAID, SELFPAY | PROVIDERS: PCP Internal Medicine; Visit Provider Internal Medicine Cardiovascular Disease | DX: I35.1 Nonrheumatic aortic (valve) insufficiency (principal); R06.02 Shortness of breath; I50.33 Acute on chronic diastolic (congestive) heart failure; I10 Essential (primary) hypertension; I25.10 Atherosclerotic heart disease of native coronary artery without angina pectoris | CPT/HCPCS: 80048; 83880 ==

== ENCOUNTER → 2021-01-28 12:43 | Day surgery (SDC) | payer MEDICAID, SELFPAY ==
[2021-01-28 13:50] VITALS: BP 158/59; PULSE 60; RESP 18; TEMP 36.2
== END ==
LOC: OPS 12:44
PROVIDERS: PCP Internal Medicine; Visit Provider Internal Medicine
DX: Z95.828 Presence of other vascular implants and grafts (principal)
CPT/HCPCS: 96368; 96523

== ENCOUNTER → 2021-02-28 12:50 | Day surgery (SDC) | payer MEDICAID, SELFPAY ==
[2021-02-28 13:10] VITALS: BP 146/53; RESP 16; TEMP 37.3
== END ==
LOC: GILAB 12:51
PROVIDERS: PCP Internal Medicine; Visit Provider Internal Medicine
DX: Z95.828 Presence of other vascular implants and grafts (principal)
CPT/HCPCS: 96368; 96523

== ENCOUNTER 2021-03-28 01:27 | Emergency (ER) | payer MEDICAID, SELFPAY ==
[2021-03-28] VITALS (10 sets, daily range): BP systolic 115–185; BP diastolic 57–79; PULSE 87–166; RESP 18–28; TEMP 36.9; O2SAT 93–97; BMI 17.6
--- NOTE | 2021-03-28 01:31 | XRR_ITS ---
PROCEDURE INFORMATION: Exam: XR Chest Exam date and time: 03/28/2021 1:40 AM Age: 70 years old Clinical indication: Dyspnea and shortness of breath; Prior surgery; Surgery type: Port. Spinal stimulator; Patient HX: Resp distress TECHNIQUE: Imaging protocol: XR of the chest. Views: 1 view. COMPARISON: CR XR chest 1V portable [id number] 05/16/2020 7:27 PM FINDINGS: Tubes, catheters and devices: The spinal stimulator electrodes are seen in the mid thoracic spine region. Lungs: There is a background of centrilobular emphysema and pulmonary fibrosis. Pleural spaces: Unremarkable. No pleural effusion. No pneumothorax. Heart/Mediastinum: Unremarkable. No cardiomegaly. Vasculature: A MediPort catheter is placed via the right subclavian vein with its tip at the level of the superior cavoatrial junction. Bones/joints: Unremarkable. XR/XR chest 1V portable [id number] IMPRESSION: 1. There are no acute chest findings. 2. There is a background of centrilobular emphysema and pulmonary fibrosis similar to that present on 05/16/2020.
--- NOTE | 2021-03-28 01:32 | ECG_ITS ---
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 Measurements Intervals [place] Rate: 152 P: [place]: QRS: 81 QRSD: 73 T: 16 QT: 263 QTc: 419 Interpretive Statements ATRIAL FIBRILLATION WITH RAPID VENTRICULAR RESPONSE WITH ABERRANT CONDUCTION OR VENTRICULAR PREMATURE COMPLEXES SEPTAL MYOCARDIAL INFARCTION , OF INDETERMINATE AGE [40+ ms Q WAVE IN V1/V2] Compared to ECG 05/16/2020 20:41:12 Aberrant conduction of supraventricular beat(s) now present Ventricular premature complex(es) now present Sinus rhythm no longer present T-wave abnormality no longer present Possible ischemia no longer present Myocardial infarct finding still present Electronically Signed On 03-28-2021 19:15:35 CDT by Tai Ramirez M.D. [email or web address]
[2021-03-28 01:44] LABS: ABG PH Result 7.43 (7.35-7.45); Alveolar-Arterial Oxygen Gradi 16.9 mmHg (5-10); Arterial Blood Gas Hematocrit 39.3 % (37-47); Base Excess ABG 5.6 mmol/L (-2.0-2.0); Blood Gas Allen Test Pos; Blood Gas Sample Site Radial, left; Blood Gas Sample Type Arterial; Carboxyhemoglobin 0.9 %THgb (0.4-20.1); HCO3 ABG 30.9 mmol/L (22-26); HGB O2 Sat 93.9 % (95-100); Ionized Calcium Level - ABG 1.2 mmol/L (1.1-1.4); Methemoglobin 0.2 % (0.4-1.5); Oxygen Device NC; Oxygen Saturation ABG 94.9; PO2 ABG 69.7 mmHg (80.0-100.0); Potassium Level - ABG 3.7 mmol/L (3.5-5.0); Total Hemoglobin 12.8 g/dL (12-16)
--- NOTE | 2021-03-28 02:16 | ED_ITS ---
HPI - SOB/Dyspnea General: Chief Complaint: Shortness of Breath/Dyspnea Stated Complaint: resp distress Time Seen by Provider: 03/28/21 01:30 Source: patient and EMS History of Present Illness: HPI Narrative: 70-year-old female with history of COPD has been having increased shortness of breath, wheezing and cough for the last 4 days. No fever. Symptoms are worse with activity and at night. She was given a dose of IV Lasix 20mg enroute. She is complaining of leg cramps, anxiety, and palpitations. Denies any chest pain. She has a productive cough. Baseline 4 L nasal cannula oxygen at home. MD elicited complaint: shortness of breath, cough and anxiety Pertinent past history: COPD Review of Systems General: Reports: ROS unobtainable due to medical condition PFSH ED PFSH: Medical History Atypical chest pain Atypical chest pain Benign essential hypertension CAD (coronary artery disease) CVA (cerebral vascular accident) Dyslipidemia (high LDL; low HDL) History of COPD Hx of carotid stenosis SOB (shortness of breath) Thyroid cancer Surgical History H/O thyroidectomy History of ankle surgery History of back surgery History of bilateral carpal tunnel release History of hip surgery History of lumpectomy History of rectal surgery Hx of hysterectomy Port-A-Cath in place S/P hardware removal Spine Family History Brother Leukemia Diabetes Lung disease Mother Anesthesia complication CAD (coronary artery disease) Father Bleeding disorder Clotting disorder CAD (coronary artery disease) Cancer Stroke Sister CAD (coronary artery disease) Chronic kidney disease (CKD) Lung disease Family/Other Diabetes Stroke Grandfather Suicide Denies family history of Dementia Social History Smoking and tobacco status: current every day smoker cigarettes Alcohol intake: never Household members: none Housing: Apartment Marital status: / Current occupational status: disabled History of recent travel: No Physical Exam Const: COMMON NORMALS: patient oriented x3 and alert GENERAL APPEARANCE: in distress, anxious, ill appearing and frail appearing; not Edematous NUTRITIONAL APPEARANCE: thin ORIENTATION/CONSCIOUSNESS: Yes awake, Yes oriented to person, Yes oriented to place and Yes oriented to time HENMT: COMMON NORMALS: normocephalic and atraumatic HEAD & SCALP: normocephalic and atraumatic Eye: COMMON NORMALS: Equal, round and reactive pupils present, EOMs intact bilaterally and conjunctivae normal CONJUNCTIVA: Yes conjunctivae normal PUPIL: Yes Equal, round and reactive pupils present Neck/C-Spine: COMMON NORMALS: no lymphadenopathy and no JVD Chest: COMMONS NORMALS: normal inspection of the chest and normal palpation of entire chest wall Resp: EFFORT & INSPECTION: Yes respiratory distress, Yes labored, No stridor, Yes Actively coughing productive, loose, rattling and hoarse, Yes audible wheezes and No tripod positioning AUSCULTATION: rales, rhonchi, wheezes and bronchial breath sounds Cardio: COMMON NORMALS: no JVD and Peripheral pulses 2+ throughout RATE: tachycardic RHYTHM: abnormal rhythm PERIPHERAL PULSES: Peripheral pulses 2+ throughout GI: COMMON NORMALS: Normal to inspection, nondistended, normoactive bowel soun ds present and Soft to palpation INSPECTION: Yes normal to inspection PALPATION: Yes Soft to palpation, No Tenderness to palpation present (GI), No Guarding due to palpation present (GI) and No Rigid due to palpation Extremity: COMMON NORMALS: capillary refill normal and no pedal edema GENERAL: Yes clubbing Neuro: COMMON NORMALS: patient oriented x3 and no focal motor deficits SENSORIUM/ORIENTATION: Yes alert, Yes oriented to person, Yes oriented to place and Yes oriented to time Skin: COMMON NORMALS: no rashes or lesions noted, no wounds, turgor normal, no jaundice and no petechiae GENERAL SKIN EXAM: no rashes or lesions noted and turgor normal Course Vital Signs: Vital signs: Vital Signs Temperature 98.4 F 03/28/21 01:27 Pulse Rate 104 H 03/28/21 06:43 Respiratory Rate 18 03/28/21 06:43 Blood Pressure 115/74 03/28/21 05:22 Pulse Oximetry 97 03/28/21 06:43 MDM - SOB/Dyspnea MDM Narrative: Medical decision making narrative: 70-year-old female with respiratory distress, A. fib with RVR. Chest x-ray does not show any acute consolidation. She has baseline severe emphysematous changes. PaO2 69, PCO2 47. pH 7.43 Treated with Solu-Medrol, Rocephin IV x1 for presumed pneumonia/COPD exac erbation, nebulizer treatment. WBC count elevated 23.2, blood cultures drawn before antibiotics. CTA negative for acute PE. Had no response to an IV bolus of Cardizem, but rate controlled with metoprolol 5 mg IV x1. Magnesium replacement administered. Patient's breathing greatly improved after few hours, she remained on her baseline level of supplemental oxygen, 4 L. Her TSH was suppressed at < 0.04, free T4 slightly elevated. This may be contributing to her RVR, and increased baseline anxiety level. Will recommend that she decrease the dose of her levothyroxine to 75 mcg daily instead of 115. Prednisone 60 mg p.o. daily x5 days. Cefdinir 300 mg twice daily x7 days. Follow-up closely with PCP in the next 2 days to recheck. Lab Data: Labs: Lab Results 03/28/21 03/28/21 03/28/21 Range/Units 01:40 02:15 02:15 WBC 23.2 H (4.0-10.0) 10^3/ uL RBC 4.14 (4.1-5.3) 10^6/u L Hgb 12.3 (11.5-15.3) g/dL Hct 39.0 (37.0-47.0) % MCV 94.2 (81-99) fL MCH 29.7 (28.0-34.0) pg MCHC 31.5 (30.0-36.0) g/dL RDW 14.3 (12.1-15.1) % Plt Count 204 (130-400) 10^3/c mm MPV 9.9 (7.4-10.4) fL Neut % (Auto) 85.4 % Lymph % (Auto) 3.0 % [place] % (Auto) 10.4 % Eos % (Auto) 0.2 % Baso % (Auto) 0.4 % Neut # (Auto) 19.86 H (1.8-7.7) 10^3/u L Lymph # (Auto) 0.7 L (0.8-4.8) 10^3/u L [place] # (Auto) 2.4 H (0.2-0.9) 10^3/u L Eos # (Auto) 0.0 (0.0-0.8) 10^3/u L Baso # (Auto) 0.1 (0.0-0.1) 10^3/u L Nucleated RBC % (a uto) 0 % Nucleated RBCs # 0.0 /100WBC D-Dimer (0-0.59) ug/mIFE U Specimen Type Arterial Sample Site Radial, left ABG pH 7.43 (7.35-7.45) ABG pCO2 47.0 H (35-45) mmHg ABG pO2 69.7 L (80.0-100.0) mmH g ABG HCO3 30.9 H (22-26) mmol/L ABG O2 Saturation 94.9 ABG Base Excess 5.6 H (-2.0-2.0) mmol/ L Ankush Test Pos A-a O2 Gradient 16.9 H (5-10) mmHg Hematocrit 39.3 (37-47) % Hgb O2 Saturation 93.9 L (95-100) % Carboxyhemoglobin 0.9 (0.4-20.1) %THgb Methemoglobin 0.2 L (0.4-1.5) % Total Hemoglobin 12.8 (12-16) g/dL Sodium 134.0 133 L (131-143) mmol/L Potassium 3.7 3.9 (3.5-5.0) mmol/L Glucose 148.0 H 126 H (70-115) mg/dL Ionized Calcium 1.2 (1.1-1.4) mmol/L O2 Delivery Device Nc O2 Liters/Min 4.0 % FiO2 36.0 % Health Administration Teacher ID [email or web address] Chloride 93 L (98-107) mmol/L Carbon Dioxide 29 (22-29) mmol/L Anion Gap 14.9 (5-19) BUN 9 (8-23) mg/dL Creatinine 0.7 (0.5-0.9) mg/dL GFR Calculation Not Reportable Calculated Osmolal ity 276 L (285-295) mOsm/k g Lactic Acid (0.5-2.2) mmol/L Calcium 8.7 (8.5-10.5) mg/dL Magnesium 1.5 L (1.7-2.3) mg/dL Total Bilirubin 1.0 (0.15-1.2) mg/dL AST 21 (0-32) U/L ALT 12 (0-33) U/L Alkaline Phosphata se 137 H (35-105) IU/L Troponin T Baselin e (0-10) ng/L Troponin T 120 Min yuhaaviatam (0-10) ng/L Delta Troponin T (0-10) ABS# NT-Pro-B Natriuret Pep 1841 H (0-125) pg/mL Total Protein 6.4 L (6.6-8.7) g/dL Albumin 3.8 (3.5-5.2) g/dL Globulin 2.6 (1.3-4.6) g/dL TSH (0.27-4.20) uIU/ mL Free T4 (0.82-1.77) ng/d L Urine Color (Yellow) Urine Appearance (CLEAR) Urine pH (5-7) Ur Specific Gravit y (1.005-1.030) Urine Protein (Negative) Urine Glucose (UA) (Normal) Urine Ketones (Negative) Urine Blood (Negative) Urine Nitrate (Negative) Urine Bilirubin (Negative) Urine Urobilinogen (Negative) mg/dL Ur Leukocyte Brielle ase (Negative) Urine RBC (0-2) /hpf Urine WBC (0-5) /hpf Ur Squamous Epith Cells (0-5) /hpf Amorphous Sediment Urine Bacteria (NONE) /hpf 03/28/21 03/28/21 03/28/21 Range/Units 02:15 02:15 02:15 WBC (4.0-10.0) 10^3/ uL RBC (4.1-5.3) 10^6/u L Hgb (11.5-15.3) g/dL Hct (37.0-47.0) % MCV (81-99) fL MCH (28.0-34.0) pg MCHC (30.0-36.0) g/dL RDW (12.1-15.1) % Plt Count (130-400) 10^3/c mm MPV (7.4-10.4) fL Neut % (Auto) % Lymph % (Auto) % [place] % (Auto) % Eos % (Auto) % Baso % (Auto) % Neut # (Auto) (1.8-7.7) 10^3/u L Lymph # (Auto) (0.8-4.8) 10^3/u L [place] # (Auto) (0.2-0.9) 10^3/u L Eos # (Auto) (0.0-0.8) 10^3/u L Baso # (Auto) (0.0-0.1) 10^3/u L Nucleated RBC % (a uto) % Nucleated RBCs # /100WBC D-Dimer (0-0.59) ug/mIFE U Specimen Type Sample Site ABG pH (7.35-7.45) ABG pCO2 (35-45) mmHg ABG pO2 (80.0-100.0) mmH g ABG HCO3 (22-26) mmol/L ABG O2 Saturation ABG Base Excess (-2.0-2.0) mmol/ L Ankush Test A-a O2 Gradient (5-10) mmHg Hematocrit (37-47) % Hgb O2 Saturation (95-100) % Carboxyhemoglobin (0.4-20.1) %THgb Methemoglobin (0.4-1.5) % Total Hemoglobin (12-16) g/dL Sodium (131-143) mmol/L Potassium (3.5-5.0) mmol/L Glucose (70-115) mg/dL Ionized Calcium (1.1-1.4) mmol/L O2 Delivery Device O2 Liters/Min % FiO2 % Health Administration Teacher ID Chloride (98-107) mmol/L Carbon Dioxide (22-29) mmol/L Anion Gap (5-19) BUN (8-23) mg/dL Creatinine (0.5-0.9) mg/dL GFR Calculation Calculated Osmolal ity (285-295) mOsm/k g Lactic Acid 1.3 (0.5-2.2) mmol/L Calcium (8.5-10.5) mg/dL Magnesium (1.7-2.3) mg/dL Total Bilirubin (0.15-1.2) mg/dL AST (0-32) U/L ALT (0-33) U/L Alkaline Phosphata se (35-105) IU/L Troponin T Baselin e 42 H (0-10) ng/L Troponin T 120 Min yuhaaviatam (0-10) ng/L Delta Troponin T (0-10) ABS# NT-Pro-B Natriuret Pep (0-125) pg/mL Total Protein (6.6-8.7) g/dL Albumin (3.5-5.2) g/dL Globulin (1.3-4.6) g/dL TSH (0.27-4.20) uIU/ mL Free T4 (0.82-1.77) ng/d L Urine Color Yellow (Yellow) Urine Appearance Clear (CLEAR) Urine pH 7 (5-7) Ur Specific Gravit y 1.000 L (1.005-1.030) Urine Protein Neg (Negative) Urine Glucose (UA) Norm (Normal) Urine Ketones Negative (Negative) Urine Blood 3+ H (Negative) Urine Nitrate Negative (Negative) Urine Bilirubin Neg (Negative) Urine Urobilinogen Norm (Negative) mg/dL Ur Leukocyte Brielle ase Negative (Negative) Urine RBC 15-25 H (0-2) /hpf Urine WBC 0-4 H (0-5) /hpf Ur Squamous Epith Cells 0-4 H (0-5) /hpf Amorphous Sediment Not Reportable Urine Bacteria Trace (NONE) /hpf 03/28/21 03/28/21 03/28/21 Range/Units 02:15 02:15 04:27 WBC (4.0-10.0) 10^3/ uL RBC (4.1-5.3) 10^6/u L Hgb (11.5-15.3) g/dL Hct (37.0-47.0) % MCV (81-99) fL MCH (28.0-34.0) pg MCHC (30.0-36.0) g/dL RDW (12.1-15.1) % Plt Count (130-400) 10^3/c mm MPV (7.4-10.4) fL Neut % (Auto) % Lymph % (Auto) % [place] % (Auto) % Eos % (Auto) % Baso % (Auto) % Neut # (Auto) (1.8-7.7) 10^3/u L Lymph # (Auto) (0.8-4.8) 10^3/u L [place] # (Auto) (0.2-0.9) 10^3/u L Eos # (Auto) (0.0-0.8) 10^3/u L Baso # (Auto) (0.0-0.1) 10^3/u L Nucleated RBC % (a uto) % Nucleated RBCs # /100WBC D-Dimer 3.87 H (0-0.59) ug/mIFE U Specimen Type Sample Site ABG pH (7.35-7.45) ABG pCO2 (35-45) mmHg ABG pO2 (80.0-100.0) mmH g ABG HCO3 (22-26) mmol/L ABG O2 Saturation ABG Base Excess (-2.0-2.0) mmol/ L Ankush Test A-a O2 Gradient (5-10) mmHg Hematocrit (37-47) % Hgb O2 Saturation (95-100) % Carboxyhemoglobin (0.4-20.1) %THgb Methemoglobin (0.4-1.5) % Total Hemoglobin (12-16) g/dL Sodium (131-143) mmol/L Potassium (3.5-5.0) mmol/L Glucose (70-115) mg/dL Ionized Calcium (1.1-1.4) mmol/L O2 Delivery Device O2 Liters/Min % FiO2 % Health Administration Teacher ID Chloride (98-107) mmol/L Carbon Dioxide (22-29) mmol/L Anion Gap (5-19) BUN (8-23) mg/dL Creatinine (0.5-0.9) mg/dL GFR Calculation Calculated Osmolal ity (285-295) mOsm/k g Lactic Acid (0.5-2.2) mmol/L Calcium (8.5-10.5) mg/dL Magnesium (1.7-2.3) mg/dL Total Bilirubin (0.15-1.2) mg/dL AST (0-32) U/L ALT (0-33) U/L Alkaline Phosphata se (35-105) IU/L Troponin T Baselin e (0-10) ng/L Troponin T 120 Min yuhaaviatam 34.86 H (0-10) ng/L Delta Troponin T -7.14 L (0-10) ABS# NT-Pro-B Natriuret Pep (0-125) pg/mL Total Protein (6.6-8.7) g/dL Albumin (3.5-5.2) g/dL Globulin (1.3-4.6) g/dL TSH 0.04 L (0.27-4.20) uIU/ mL Free T4 1.97 H (0.82-1.77) ng/d L Urine Color (Yellow) Urine Appearance (CLEAR) Urine pH (5-7) Ur Specific Gravit y (1.005-1.030) Urine Protein (Negative) Urine Glucose (UA) (Normal) Urine Ketones (Negative) Urine Blood (Negative) Urine Nitrate (Negative) Urine Bilirubin (Negative) Urine Urobilinogen (Negative) mg/dL Ur Leukocyte Brielle ase (Negative) Urine RBC (0-2) /hpf Urine WBC (0-5) /hpf Ur Squamous Epith Cells (0-5) /hpf Amorphous Sediment Urine Bacteria (NONE) /hpf Critical Care Time Critical Care Time: Critical Care Time: Yes Total Critical Care Time: 40 Attestation: This case had a high probability of a clinically significant, sudden, or life threatening deterioration of this patient's condition which required my full and direct attention, intervention and personal management. Discharge Plan Discharge Patient Disposition: Home Clinical Impression: Atrial fibrillation with rapid ventricular response, Acute exacerbation of chronic obstructive pulmonary disease, Pulmonary nodule seen on imaging study, High serum thyroxine (T4) Condition: Stable Prescriptions: New levothyroxine 75 mcg capsule 75 mcg PO DAILY Qty: 30 RF: 0 prednisone 20 mg tablet 20 mg PO DAILY 5 Days Qty: 15 RF: 0 cefdinir 300 mg capsule 300 mg PO BID 7 Days Qty: 14 RF: 0 Discontinued levothyroxine 112 mcg capsule 112 mcg PO DAILY Qty: 90 RF: 3 No Action losartan [Cozaar] 50 mg tablet 50 mg PO DAILY 30 Days Qty: 30 RF: 5 Hold Instructions: Adverse Reaction metoprolol tartrate 25 mg tablet 25 mg PO BID 30 Days Qty: 60 RF: 5 ipratropium-albuterol 0.5 mg-3 mg(2.5 mg base)/3 mL solution for nebulization 3 ml INHALATION Q4H PRN (Reason: shortness of breath or wheezing) Qty: 180 RF: 8 Fluarix Quad 9202-1815 (PF) 60 mcg (15 mcg x 4)/0.5 mL syringe 0.5 ml IM ONCE Qty: 0.5 RF: 0 magnesium 30 mg tablet 30 mg PO DAILY Qty: 90 RF: 6 potassium chloride 20 mEq/15 mL liquid 20 meq PO BID PRN (Reason: hypokalemia) 60 Days Qty: 1800 RF: 3 amlodipine 10 mg tablet 10 mg PO DAILY Qty: 90 RF: 3 furosemide [Lasix] 40 mg tablet 40 mg PO DAILY Qty: 90 RF: 3 hydrocodone-acetaminophen [[place]] 5-325 mg tablet 1 - 2 tab PO Q4H PRN (Reason: pain) 30 Days Qty: 30 RF: 0 atorvastatin [Lipitor] 20 mg tablet 40 mg PO QPM RF: 0 Daliresp 500 mcg tablet 500 mcg PO DAILY 30 Days Qty: 30 RF: 3 spironolactone 50 mg tablet 50 mg PO BID Qty: 60 RF: 3 albuterol sulfate [Ventolin HFA] 90 mcg/actuation HFA aerosol inhaler 2 puff INHALATION Q4H PRN (Reason: shortness of breath or wheezing) Qty: 18 RF: 3 fluticasone propionate 50 mcg/actuation spray,suspension 2 spray intranasal BID Qty: 16 RF: 0 tizanidine 4 mg tablet 4 mg PO TID PRN (Reason: muscle spasticity) Qty: 90 RF: 0 cetirizine 10 mg tablet 10 mg PO DAILY Qty: 90 RF: 3 Albutein 5 % 2.5 mg inhalation PRN RF: 0 clopidogrel [Plavix] 75 mg Tablet 75 mg PO DAILY RF: 0 Hold Instructions: Resume on 06/04/20. Hold until seen by cardiology nitroglycerin [Nitrostat] 0.4 mg Tablet, Sublingual 0.4 mg SUBLINGUAL Q5M PRN (Reason: Chest Pain) RF: 0 polyethylene glycol 3350 [Miralax] 17 gram/dose Powder 17 g PO DAILY PRN (Reason: Constipation) RF: 0 buprenorphine-naloxone [Suboxone] 8-2 mg Film 1 film SUBLINGUAL TID RF: 0 Hold Instructions: Resume on 05/28/20. May reinstitute in the next 7 days, but do not use with [place] and tramadol calcitriol 0.5 mcg capsule 0.5 mcg PO DAILY RF: 0 fluticasone propion-salmeterol [Advair Diskus] 500-50 mcg/dose blister with device 1 inh INHALATION BID RF: 0 diclofenac sodium [Voltaren] 1 % gel 2 gm TOPICAL QID PRN (Reason: Pain) RF: 0 Discharge Orders: Discharge ED (Routine); Ordered 03/28/21 Ordered By: Skylar Etienne Referrals: Eliezer Mejia MD [Primary Care Provider] - Discharge Diet: Advance as tolerated Discharge Activity: Increase activity as tolerated Activity Restrictions/Additional Instructions: Stop taking your current dose of thyroid medicine, I have prescribed a lower dose. Make sure to finish all of the antibiotics and steroids. Schedule follow-up appoint with your primary care doctor within the next 2 to 3 days for recheck. Return immediately to the ER for develop a fever, more difficulty breathing, chest pain, vomiting, or any other concerning changes. 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
[2021-03-28] MEDS: LORazepam 2 mg/mL INJ 1 mL 0.5 MG IVP (02:17)
[2021-03-28 02:22] LABS: Basophils # 0.1 10^3/uL (0.0-0.1); Basophils % 0.4 %; Eosinophils % 0.2 %; Hemoglobin 12.3 g/dL (11.5-15.3); Lymphocytes # 0.7 10^3/uL (0.8-4.8); Mean Corpuscular HGB Conc 31.5 g/dL (30.0-36.0); Mean Corpuscular Hemoglobin 29.7 pg (28.0-34.0); Mean Corpuscular Volume 94.2 fL (81-99); Mean Platelet Volume 9.9 fL (7.4-10.4); Monocytes # 2.4 10^3/uL (0.2-0.9); Monocytes % 10.4 %; Neutrophils # 19.86 10^3/uL (1.8-7.7); Neutrophils % 85.4 %; Nucleated Red Blood Cells % 0 %; Platelet Count 204 10^3/cmm (130-400); Red Blood Count 4.14 10^6/uL (4.1-5.3); Red Cell Distribution Width 14.3 % (12.1-15.1); White Blood Count 23.2 10^3/uL (4.0-10.0)
[2021-03-28 02:28] LABS: Bilirubin Urine Neg (Negative); Blood Urine 3+ (Negative); Glucose Urine UA Norm (Normal); Ketones Urine Negative (Negative); Nitrate Urine Negative (Negative); Protein Urine Neg (Negative); Urine Appearance Clear (CLEAR); Urine Color Yellow (Yellow); Urobilinogen Urine Norm (Negative); pH Urine 7 (5-7)
[2021-03-28 02:29] LABS: Add Urine Culture? Yes; Add Urine Microscopic? YES; Bacteria Urine TRACE /hpf; Leukocyte Esterase Urine Negative (Negative); RBC Urine 15-25 /hpf (0-2); Squamous Epithelial Cell Urine 0-4 /hpf (0-5); WBC Urine 0-4 /hpf (0-5)
[2021-03-28] MEDS: cefTRIAXone 1,000 MG in sodium chloride 0.9% (plus) 50 ML 100 MG IV (02:37)
[2021-03-28 02:42] LABS: Lactic Sepsis W/Reflex 1.3 mmol/L (0.5-2.2)
[2021-03-28 02:43] LABS: Troponin(5th) Baseline 42 ng/L (0-10)
[2021-03-28] MEDS: ipratropium-albuterol 3 mL Neb INHALATION (02:48)
[2021-03-28 02:56] LABS: Alanine Aminotransferase 12 U/L (0-33); Albumin Level 3.8 g/dL (3.5-5.2); Alkaline Phosphatase 137 IU/L (35-105); Anion Gap 14.9 (5-19); Aspartate Amino Transferase 21 U/L (0-32); Blood Urea Nitrogen 9 mg/dL (8-23); Calcium 8.7 mg/dL (8.5-10.5); Carbon Dioxide 29 mmol/L (22-29); Chloride 93 mmol/L (98-107); Globulin 2.6 g/dL (1.3-4.6); Glucose 126 mg/dL (65-115); Magnesium 1.5 mg/dL (1.7-2.3); NT Pro B Type Natriuretic Pept 1841 pg/mL (0-125); Osmolality Calculated 276 mOsm/kg (285-295); Potassium 3.9 mmol/L (3.5-5.1); Sodium 133 mmol/L (136-145); Total Protein 6.4 g/dL (6.6-8.7)
[2021-03-28] MEDS: metoprolol tartrate 1 mg/1 mL SDV 5 mL 5 MG IV (03:05)
[2021-03-28 03:06] LABS: D Dimer 3.87 ug/mIFEU (0-0.59)
[2021-03-28 03:20] LABS: Thyroid Stimulating Hormone 0.04 uIU/mL (0.27-4.20)
--- NOTE | 2021-03-28 03:20 | CTR_ITS ---
PROCEDURE INFORMATION: Exam: CTA Chest With Contrast Exam date and time: 03/28/2021 3:22 AM Age: 70 years old Clinical indication: Cough and dyspnea and shortness of breath; Prior surgery; Surgery type: Chest port. Thyroidectomy. Stimulator; Patient HX: Resp distress. Elevated d dimer; Additional info: Resp failure, tachycardia, elevated ddimer TECHNIQUE: Imaging protocol: Computed tomographic angiography of the chest with contrast. 3D rendering (Not supervised by radiologist): MIP and/or 3D reconstructed images were created by the technologist. Radiation optimization: All CT scans at this facility use at least one of these dose optimization techniques: automated exposure control; mA and/or kV adjustment per patient size (includes targeted exams where dose is matched to clinical indication); or iterative reconstruction. Contrast material: OMNI 350; Contrast volume: 53 ml; Contrast route: INTRAVENOUS (IV); COMPARISON: CTA Chest-Pulmonary Emb [id number] 07/16/2016 2:01 AM RADIATION DOSE METRICS: Total DLP (mGy-cm): 406.46 FINDINGS: Pulmonary arteries: Normal. No pulmonary emboli. Aorta: The calcifications are seen within the thoracic aorta. Lungs: There is a background of centrilobular emphysema and pulmonary fibrosis. A lobulated pulmonary nodularity is seen within the right lower lobe measuring 1.4 x 1.4 x 2.3 cm. This is a new finding compared with 07/16/2016. Pleural spaces: Unremarkable. No pneumothorax. No pleural effusion. Heart: Unremarkable. No cardiomegaly. No pericardial effusion. Lymph nodes: Unremarkable. No enlarged lymph nodes. Gallbladder and bile ducts: Status post cholecystectomy. Bones/joints: Neuro stimulating electrode markers are seen the T9-T10 level. Soft tissues: Unremarkable. CT/CT angio chest PE protcl [id number] IMPRESSION: 1. There is no evidence for pulmonary emboli. 2. Background of centrilobular emphysema and pulmonary fibrosis. 3. Lobulated pulmonary nodularity within the right lower lobe measuring up to 2.3 cm. For both low risk and high risk patients, consider CT Chest at 3 months, PET/CT, or biopsy. (Reference: Latrell) REFERENCES: Latrell Davila et al. Guidelines for Management of Incidental Pulmonary Nodules Detected on CT Images: From the Fleischner Society 2017. Radiology. 2017;284(1):228-243. Radiation Dose CTDIVOL = (mGy): DLP = 406.46 (mGy-cm)
[2021-03-28 03:23] LABS: Free T4 Free Thyroxine 1.97 ng/dL (0.82-1.77)
--- NOTE | 2021-03-28 03:32 | ECG_ITS ---
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 Measurements Intervals [place] Rate: 92 P: 99 PA: 128 QRS: 91 QRSD: 79 T: 38 QT: 340 QTc: 422 Interpretive Statements SINUS RHYTHM WITH OCCASIONAL SUPRAVENTRICULAR PREMATURE COMPLEXES BORDERLINE RIGHT AXIS DEVIATION [QRS AXIS > 90] Compared to ECG 03/28/2021 01:33:14 Atrial fibrillation no longer present Aberrant conduction of supraventricular beat(s) no longer present Ventricular premature complex(es) no longer present Myocardial infarct finding no longer present Electronically Signed On 03-28-2021 19:18:19 CDT by Tai Ramirez M.D. [email or web address] [email or web address] [email or web address] [email or web address] Financialmount [facility].[email or web address]/store/[id number]
[2021-03-28] MEDS: ALPRAZolam 0.5 mg Tablet PO (03:45)
[2021-03-28] MEDS: fentaNYL 50 mcg/mL INJ 2mL 75 MCG IVP (04:46)
[2021-03-28 04:55] LABS: Troponin 5 2HR 34.86 ng/L (0-10)
[2021-03-28 05:04] LABS: Troponin 5 2HR Delta -7.14 ABS# (0-10)
[2021-03-28] MEDS: iohexol 300 mg/mL 100 mL Btl IV (05:07)
== END 2021-03-28 07:11 | disposition home or self-care (01) ==
PROVIDERS: Emergency Provider Family Medicine; PCP Internal Medicine
DX: I48.20 Chronic atrial fibrillation, unspecified (principal); J44.1 Chronic obstructive pulmonary disease with (acute) exacerbation; R91.1 Solitary pulmonary nodule; R79.89 Other specified abnormal findings of blood chemistry; Z79.02 Long term (current) use of antithrombotics/antiplatelets; I10 Essential (primary) hypertension; I25.10 Atherosclerotic heart disease of native coronary artery without angina pectoris; Z86.73 Personal history of transient ischemic attack (TIA), and cerebral infarction without residual deficits; E78.5 Hyperlipidemia, unspecified; Z85.850 Personal history of malignant neoplasm of thyroid; F17.210 Nicotine dependence, cigarettes, uncomplicated
CPT/HCPCS: 36600; 71045; 71275; 80051; 80053; 81001; 82330; 82805; 83605; 83735; 83880; 84439; 84443; 84484; 85025; 85378; 87040; 87086; 93005; 94640; 96365; 96367; 96375; 99284; 99291; J0696; J2060; J2930; J3010; J3475; J3490; Q9967

== ENCOUNTER → 2021-04-17 12:45 | Day surgery (SDC) | payer MEDICAID, SELFPAY | PROVIDERS: PCP Internal Medicine; Visit Provider Internal Medicine | DX: R91.1 Solitary pulmonary nodule (principal) | CPT/HCPCS: 87635 ==

== ENCOUNTER 2021-04-22 06:09 | Day surgery (SDC) | payer MEDICAID, SELFPAY ==
[2021-04-18 12:16] VITALS: BMI 18.3
[2021-04-22] VITALS (10 sets, daily range): BP systolic 115–153; BP diastolic 54–76; PULSE 65–77; RESP 15–24; TEMP 36.6–37.3; O2SAT 99–100
--- NOTE | 2021-04-22 | CT_ITS ---
Guided Bronchoscopy Planning CT images; total exam DLP: 539.21 mGy-cm MTDD
--- NOTE | 2021-04-22 06:00 | CT_ITS ---
WS: [id number] CT chest, limited. CT chest is performed for bronchoscopy guidance jessican Verlovely procedure. Procedure to be performed by Dr Kenisha Alcantara.
--- NOTE | 2021-04-22 06:51 | ECG_ITS ---
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 Measurements Intervals [place] Rate: 57 P: 85 TX: 150 QRS: 39 QRSD: 87 T: 50 QT: 429 QTc: 421 Interpretive Statements SINUS BRADYCARDIA LOW QRS VOLTAGE IN EXTREMITY LEADS [QRS DEFLECTION < 0.5 mV IN LIMB LEADS] Compared to ECG 03/28/2021 04:43:41 Low QRS voltage now present Sinus rhythm no longer present Electronically Signed On 04-22-2021 18:41:24 CDT by Rosette Cunningham M.D. [email or web address] [email or web address]/[id number]
--- NOTE | 2021-04-22 06:52 | W.PM.OPSUD ---
Surgery/Procedure H&P Update DATE OF PROCEDURE: April 22, 2021 DATE H&P PERFORMED: 04/14/21 H&P UPDATE INFORMATION: I have reviewed H&P completed within last 30 days, I have examined patient prior to procedure and No changes to prior documentation PREOP DIAGNOSIS: Suspected lung cancer PRIMARY INDICATION FOR PROCEDURE: Suspected lung cancer PLANNED PROCEDURE: Bronchoscopy with inspection of the airway, possible endobronchial biopsy, bronchoalveolar lavage, Cytobrush, navigational bronchoscopy guided transbronchial biopsy of the right lower lobe lung nodule, fine-needle aspiration, endobronchial ultrasound-guided transbronchial needle aspiration of lymph nodes and control of bleeding. Operation Date: 04/22/21 07:10 Proposed Procedures p Gloria [id number] R91.1(Not Applicable) - Shahnaz Alcantara MD
[2021-04-22] MEDS: sodium chloride 0.9% 1,000 ML 30 ML IV (06:54)
--- NOTE | 2021-04-22 06:59 | ANES.PREANE2 ---
Pre-Anesthetic Assessment Pre-Anesthetic Assessment: Height/Weight: Height 1.52 m Weight 42.638 kg Temp Pulse Resp BP Pulse Ox 99.2 F 65 24 H 153/65 100 04/22/21 06:38 04/22/21 06:38 04/22/21 06:38 04/22/21 06:38 04/22/21 06:38 Preop Diagnosis: Suspected lung cancer Proposed Procedure: Operation Date: 04/22/21 07:10 Proposed Procedures p Gloria [id number] R91.1(Not Applicable) - Shahnaz Alcantara MD Was Beta Jasen taken within 24 hours: Yes Was Clonidine taken within 24 hours: N/A Last intake: Intake Last Liquid Date 04/21/21 Last Liquid Time 23:55 Last Solid Date 04/21/21 Last Solid Time 19:30 Social: Social History: Tobacco (10 cigs per day) and No alcohol Exam: Pre-Anes Outpt Exam: alert, oriented x 3, clear to auscultation bilaterally and regular rate & rhythm Airway: Submandibular: WNL Cervical ROM: WNL MP: 1 Dentition: False Pulmonary: Pulmonary: COPD, Cough, SALAZAR and SOB Comments: lung mass 3 L NC CV/HEM: CV/HEM: Angina (Stable) (nitroglycerin taken 4 days ago for chest and was relieved with 1 dose), Arrythmia, CAD, CHF, HTN and MD : : Chronic renal Insufficiency Hepatic: Hepatic: None reported GI: GI: GERD (controlled ) Metabolic: Metabolic: Hyperlipidemia and Thyroid (removed) Musc/skel: Musc/skel: Lower Back Pain and OA/DJD Neuropsych: Neuropsych: None reported Anesthetic Plan: ASA status: 4 Anesthesia: General Risk of > 500 ml blood loss (7ml/kg in children): No Meds/Allergies Current Medications: Current Medications Generic Name Dose Route Start Last Admin Trade Name Freq PRN Reason Stop Dose Admin Sodium Chloride 1,000 mls @ 30 ml s/hr 04/22/21 06:15 04/22/21 06:54 Sodium Chloride 0.9% IV 04/23/21 06:14 30 mls/hr .Q24H ALEXA Administration PFSH Anesthesia PFSH: Medical History Atypical chest pain Atypical chest pain Benign essential hypertension CAD (coronary artery disease) CVA (cerebral vascular accident) Dyslipidemia (high LDL; low HDL) History of COPD Hx of carotid stenosis SOB (shortness of breath) Thyroid cancer Surgical History H/O thyroidectomy History of ankle surgery History of back surgery History of bilateral carpal tunnel release History of hip surgery History of lumpectomy History of rectal surgery Hx of hysterectomy Port-A-Cath in place S/P hardware removal Spine Family History Brother Leukemia Diabetes Lung disease Mother Anesthesia complication CAD (coronary artery disease) Father Bleeding disorder Clotting disorder CAD (coronary artery disease) Cancer Stroke Sister CAD (coronary artery disease) Chronic kidney disease (CKD) Lung disease Family/Other Diabetes Stroke Grandfather Suicide Denies family history of Dementia Social History Smoking and tobacco status: current every day smoker cigarettes Alcohol intake: never Household members: none Housing: Apartment Marital status: / Current occupational status: disabled History of recent travel: No Data Anesthesia Cardiac Studies: No Data to Display
[2021-04-22] MEDS: lidocaine 1% INJ 20 mL XX (08:10)
--- NOTE | 2021-04-22 08:33 | PM.OP ---
Operative Report Date of procedure: April 22, 2021 Pre-op Diagnosis: Suspected lung cancer Post-op diagnosis: same Brief History: This is a 71-year-old lady coming in for bronchoscopic evaluation for right lower lobe lung nodule suspicious for lung cancer. The PET scan is negative for any mediastinal or hilar lymph node involvement. Procedure: Name of the procedure: Bronchoscopy with inspection of the airway, navigational bronchoscopy guided fine needle aspiration of right lower lobe lung nodule, endobronchial ultrasound-guided transbronchial needle aspiration of lymph nodes and control of bleeding. Indication: Right lower lobe lung nodule suspicious for lung cancer Anesthesia: General anesthesia. Local anesthesia: The khushbu in the right and left mainstem bronchi were anesthetized with 1% lidocaine, 3 mL. Description of the procedure: The procedure was explained to the patient and the consent was obtained. The patient was brought to the OR. The patient underwent endotracheal intubation for general anesthesia. Following induction of general anesthesia, the bronchoscope was advanced through the ET tube. The lower trachea appeared to be normal. The khushbu was sharp. The khushbu, the right and left mainstem bronchi are anesthetized with 1% lidocaine. In a systematic manner bilateral bronchial tree was then examined. The bronchoscope was advanced into the left mainstem bronchus. The left upper lobe, lingula and left lower lobe bronchi were examined up to the third subsegmental level and no abnormalities were identified. The bronchoscope was then introduced into the right mainstem bronchus. The right upper lobe, right middle lobe and right lower lobe bronchi were examined up to the third subsegmental level and no abnormalities were identified. Increased airway secretion was noted throughout the lungs. Using navigational bronchoscopy fine-needle aspiration was performed from the right lower lobe lung nodule. Multiple samples were obtained The endobronchial ultrasound was introduced through the ET tube. No significant mediastinal or hilar lymphadenopathy was identified. Samples: 1. The fine-needle aspiration from the right lower lobe lung nodule was sent for rapid onsite evaluation. This was positive for suspicious cells. The rest of the sample was sent for histopathology. Complications: There was no immediate complications.
--- NOTE | 2021-04-22 08:49 | P.PCN_ITS ---
PACU note PACU note: VSS, Good respiratory effort, report to NC MACHINIST Post-Anesthesia Exam: awake
--- NOTE | 2021-04-22 08:49 | PM.PACU ---
PACU note PACU note: VSS, Good respiratory effort, report to FIRST ASSISTANT Post-Anesthesia Exam: awake
[2021-04-22] MEDS: morphine 4 mg/mL SDV 1 mL IVP (10:03)
--- NOTE | 2021-04-22 10:20 | SUR.PHASEII ---
10:15 PATIENT TOLERATED COOL PO FLUIDS. MEDICATED FOR PAIN. PATIENT DENIES DIFFICULTY BREATHING.
--- NOTE | 2021-04-22 17:07 | ANE.PACU2 ---
Inpatient post-anesthesia follow up: Airway intact: Yes Vital signs: Temperature 97.9 F Pulse Rate 68 Respiratory Rate 18 Blood Pressure 129/66 Pulse Oximetry 99 Oxygen Delivery Me thod Nasal Cannula Oxygen Flow Rate 3 Fraction of Inspir ed Oxygen Hydration adequate: Yes Nausea and vomiting: No Pain level: 3 Mental status: Baseline
[2021-04-29 06:11] LABS: PD-L1 (Clone 22C3) by IHC BBPL See Report
== END 2021-04-22 10:55 | disposition home or self-care (01) ==
PROVIDERS: PCP Internal Medicine; Visit Provider Internal Medicine Critical Care Medicine
PROC: 0BJ08ZZ Inspection of Tracheobronchial Tree, Via Natural or Artificial Opening Endoscopic (ICD-10-PCS; CPT 31622; principal; 2021-04-22 07:00)
PROC: BB4BZZZ Ultrasonography of Pleura (ICD-10-PCS; 2021-04-22 07:00)
DX: C34.90 Malignant neoplasm of unspecified part of unspecified bronchus or lung (principal); F17.210 Nicotine dependence, cigarettes, uncomplicated; J44.9 Chronic obstructive pulmonary disease, unspecified; Z99.81 Dependence on supplemental oxygen; I10 Essential (primary) hypertension; I25.2 Old myocardial infarction; E78.5 Hyperlipidemia, unspecified; I25.10 Atherosclerotic heart disease of native coronary artery without angina pectoris; Z86.73 Personal history of transient ischemic attack (TIA), and cerebral infarction without residual deficits; Z85.850 Personal history of malignant neoplasm of thyroid
CPT/HCPCS: 31627; 71250; 77011; 80500; 88305; 88342; 93005; 96361; 96374; J0330; J1100; J2270; J2405; J2704; J3010; J3490; J7030

== ENCOUNTER 2021-05-08 12:50 | Outpatient (CLI) | payer MEDICAID, SELFPAY ==
--- NOTE | 2021-05-08 14:14 | N.ONRAD NP_ITS ---
Radiation Oncology Consultation Patient Name: Sakina Lombardi Date of : 1950 Date of Service: 05/08/2021 Attending Physician: Fortunato Salazar M.D. Sakina Lombardi was seen in consultation this afternoon at the request of Yanick Murillo M.D. for consideration of stereotactic ablative body radiotherapy in the management of her recently diagnosed lung cancer. She was evaluated at the [facility] emergency department in February for worsening dyspnea. A CT angiography revealed a 1.4 cm x 1.4 cm x 2.3 cm pulmonary nodule in the right lower lobe of the lung. A PET CT ordered on April 19, 2021 (independently visualized in [facility]) confirmed hypermetabolic activity within the previously described right lower lobe lesion (SUV 12.8) without evidence of lymphadenopathy nor metastatic disease. A navigational bronchoscopy with endobronchial ultrasound-guided biopsy was performed by Harsha Alcantara M.D. on April 22, 2021. The right lower lobe mass biopsy specimen was suspicious for malignancy requiring additional material for diagnostic work-up and ancillary studies (the pathology report was in [facility]). The patient presents for discussion regarding consideration for SABR. I discussed with Ms. Lombardi the AJCC stage IA3 (T1cN0) lung cancer corresponding to her disease. She is aware that the National Comprehensive Cancer Network Guidelines recommend surgical resection in operable patients. However, for patients deemed medically inoperable without lymphadenopathy, stereotactic radiotherapy is preferable. I reviewed the RTOG 0236 phase II trial that enrolled non-small cell lung cancer patients with peripheral T1 and T2 and medical conditions precluding surgical treatment to SABR. The 3-year primary tumor local control of 97% with an overall median survival of 48 months. I also discussed the SPACE trial that randomized stage I non-small cell lung cancer patients to SABR or conventional fractionated radiotherapy. Progression free survival was improved and a significant decrement in adverse events were documented in the SABR treatment arm. I would endorse an ultra-hypofractionated course of stereotactic radiotherapy. I will order pulmonary function testing. A 4-dimensional computed tomographic will be acquired for radiotherapy planning to delineate the gross tumor volume. The potential toxicities of stereotactic body radiotherapy to the lung were reviewed. The patient has verbalized understanding and would like to proceed as recommended. The patient's medical treatment plan was discussed with Harsha Alcantara M.D. Signed by: Dr. Fortunato Salazar 05/08/2021 2:12:11 PM
[2021-05-08 16:00] LABS: Alanine Aminotransferase 8 U/L (0-33); Alkaline Phosphatase 107 IU/L (35-105); Anion Gap 11.1 (5-19); Aspartate Amino Transferase 23 U/L (0-32); Blood Urea Nitrogen 8 mg/dL (8-23); Carbon Dioxide 33 mmol/L (22-29); Chloride 100 mmol/L (98-107); Globulin 2.6 g/dL (1.3-4.6); Glucose 86 mg/dL (65-115); Osmolality Calculated 288 mOsm/kg (285-295); Potassium 4.1 mmol/L (3.5-5.1); Sodium 140 mmol/L (136-145); Total Bilirubin 0.4 mg/dL (0.15-1.2); Total Protein 6.6 g/dL (6.6-8.7)
== END 2021-05-08 12:51 | disposition home or self-care (01) ==
LOC: ONCMED 12:55
PROVIDERS: PCP Internal Medicine; Visit Provider Radiology Radiation Oncology
DX: C34.31 Malignant neoplasm of lower lobe, right bronchus or lung (principal)
CPT/HCPCS: 36591; 80053; 85025; 99205

== ENCOUNTER → 2021-05-09 08:50 | Outpatient (BNVA) | payer MEDICAID, SELFPAY | PROVIDERS: PCP Internal Medicine; Visit Provider Internal Medicine Medical Oncology | DX: R91.1 Solitary pulmonary nodule (principal) | CPT/HCPCS: 85025 ==

== ENCOUNTER 2021-05-16 14:36 | Outpatient (CLI) | payer MEDICAID, SELFPAY ==
--- NOTE | 2021-05-16 15:00 | MM_ITS ---
WS: [id number] BILATERAL DIGITAL SCREENING MAMMOGRAPHY WITH CAD CLINICAL INFORMATION: SCREENING HISTORY: Screening mammogram. Bilateral breast soreness COMPARISON: August 31, 2019 TECHNIQUE: Bilateral CC and MLO views. FINDINGS: Scattered fibroglandular densities bilaterally. No suspicious focal mass, asymmetry, calcifications, or architectural distortion. No evidence of malignancy. Punctate and lucent centered calcifications. Clustered calcifications. Secretory calcifications. Biopsy clip left breast. MM/[place] [id number] IMPRESSION: BI-RADS: 2-Benign FOLLOW UP: 1 Year Follow-up Recommend return to annual screening mammography.
== END 2021-05-16 14:37 | disposition home or self-care (01) ==
LOC: RADSHAW 14:42
PROVIDERS: PCP Internal Medicine; Visit Provider Internal Medicine
DX: Z12.31 Encounter for screening mammogram for malignant neoplasm of breast (principal)
CPT/HCPCS: 77067

== ENCOUNTER → 2021-05-21 14:54 | Outpatient (BNVA) | payer MEDICAID, SELFPAY | PROVIDERS: PCP Internal Medicine; Visit Provider Radiology Radiation Oncology | DX: Z01.812 Encounter for preprocedural laboratory examination (principal); Z20.822 Contact with and (suspected) exposure to COVID-19 | CPT/HCPCS: 87635 ==

== ENCOUNTER 2021-05-26 14:49 | Outpatient (CLI) | payer MEDICAID, SELFPAY ==
--- NOTE | 2021-05-26 15:16 | PFTS_ITS ---
Date of Study:05/26/21 Date of Dictation: MECHANICS: Forced vital capacity (FVC) is reduced. Forced expiratory volume in one second (FEV1) is reduced. FEV1/FVC is reduced. FLOW VOLUME LOOP: Reduced flow at all lung volumes with significant scooping. LUNG VOLUMES: Total lung capacity (TLC) is normal. Residual volume (RV) is increased. DIFFUSING CAPACITY FOR CARBON MONOXIDE: Severely reduced. INTERPRETATION: The pulmonary function tests are consistent with severe airflow obstruction. There is no significant postbronchodilator response. Lung volumes are consistent with air trapping. Gas exchange (DLCO) is severely reduced. MTDD
== END 2021-05-26 14:50 | disposition home or self-care (01) ==
LOC: RT 14:51
PROVIDERS: PCP Internal Medicine; Visit Provider Radiology Radiation Oncology
DX: C34.31 Malignant neoplasm of lower lobe, right bronchus or lung (principal)
CPT/HCPCS: 94060; 94726; 94729; J7611

== ENCOUNTER 2021-06-11 06:03 | Outpatient (RCR) | payer MEDICAID, SELFPAY ==
--- NOTE | 2021-06-04 | CT_ITS ---
Radiation Therapy Planning CT images; total exam DLP: 925.80 mGy-cm MTDD
--- NOTE | 2021-06-11 16:01 | N.ONRD TS_ITS ---
SABR Treatment Summary Patient Name: Sakina Lombardi Date of : 1950 Date of Service: 06/11/2021 Attending Physician: Fortunato Salazar M.D. Sakina Lombardi has completed stereotactic ablative body radiotherapy for the management of a clinical stage IA3 (T1cN0) lung cancer. A CT angiography revealed a 1.4 cm x 1.4 cm x 2.3 cm pulmonary nodule in the right lower lobe of the lung. A PET CT confirmed hypermetabolic activity within the previously described right lower lobe lesion (SUV 12.8) without evidence of lymphadenopathy nor metastatic disease. A navigational bronchoscopy with endobronchial ultrasound-guided biopsy was performed on April 22, 2021. The right lower lobe mass biopsy specimen was suspicious for malignancy The patient has received 54 Gy of a prescribed 54 Martínez (SABR) delivered with an intensity modulated radiotherapy plan utilizing a step and shoot treatment technique. SABR was delivered between the dates of June 09, 2021 through June 11, 2021. A prescribed dose of 54 Gy was delivered in three fractions encompassing 3 elapsed days. The right lower lobe lesion was treated utilizing an intensity modulated radiotherapy plan with a step and shoot treatment technique. The plan required five co-planar mata and two non-coplanar ports. The coplanar mata were designed using gantry angles of 170???, 190???, 220???, 300???and 355??? and were associated with a collimator rotation between 6??? and 350??? to minimize MLC excursion. The minimum field size was 4.9 cm x 5.cm to a maximum of 6.3 cm x 5 cm. The planned SSD measured between a minimum of 85.9 cm to a maximum of 92.8 cm. The delivered monitor units for the referenced gantry angles were 1384 MU, 1413 MU, 845 MU, 1984 MU, and 825 MU. An additional two non-coplanar ports were arranged with gantry angles of 340??? and 345???, a collimator rotation of 50??? and couch angles of 60??? and 45???, respectively. The non-coplanar portal mata measured 45.7 cm x 5.5 cm with SSD measurements of 85.6 cm and 85.8 cm. The non-coplanar ports administered 1238 MU and 853 MU. Low energy photons were prescribed. All treatments were performed with the [employer] linear accelerator and an isocentric technique. The dose was calculated by Anisotropic Analytic Algorithm with the plan normalized to deliver 100% of the prescription dose to 95% of the planning target volume. Signed by: Dr. Fortunato Salazar 06/11/2021 4:00:11 PM
--- NOTE | 2021-06-12 10:28 | ONCRAD TMN_ITS ---
SABR Treatment Management Note Patient Name: Sakina Lombadri Date of : 1950 Date of Service: 06/11/2021 Attending Physician: Fortunato Salazar M.D. Sakina Lombardi has completed stereotactic ablative body radiotherapy for the management of a clinical stage IA3 (T1cN0) lung cancer. A CT angiography revealed a 1.4 cm x 1.4 cm x 2.3 cm pulmonary nodule in the right lower lobe of the lung. A PET CT confirmed hypermetabolic activity within the previously described right lower lobe lesion (SUV 12.8) without evidence of lymphadenopathy nor metastatic disease. A navigational bronchoscopy with endobronchial ultrasound-guided biopsy was performed on April 22, 2021. The right lower lobe mass biopsy specimen was suspicious for malignancy The patient has received 54 Gy of a prescribed 54 Martínez (SABR) delivered with an intensity modulated radiotherapy plan utilizing a step and shoot treatment technique. Upon review of systems, she any changes in her pulmonary function. On physical examination, the patient weighed 101 lbs. Her temperature was 98.2 ???F with a blood pressure of 131/62 mmHg. The pulse was 70 bpm and her respiratory rate was 22. Oxygen saturation while breathing room air was 95%. There was no erythema within the treatment mata. Stereotactic ablative body radiotherapy was completed today. She will return for post-radiotherapy evaluation in 1 month. Signed by: Dr. Fortunato Salazar 06/12/2021 10:27:38 AM
== END 2021-06-28 23:59 | disposition home or self-care (01) ==
LOC: ONCMED 06:03
PROVIDERS: PCP Internal Medicine; Visit Provider Radiology Radiation Oncology
DX: Z51.0 Encounter for antineoplastic radiation therapy (principal); C34.31 Malignant neoplasm of lower lobe, right bronchus or lung; E21.3 Hyperparathyroidism, unspecified; J44.9 Chronic obstructive pulmonary disease, unspecified; F41.9 Anxiety disorder, unspecified; I10 Essential (primary) hypertension; I73.9 Peripheral vascular disease, unspecified; K21.9 Gastro-esophageal reflux disease without esophagitis; M81.0 Age-related osteoporosis without current pathological fracture; Z79.899 Other long term (current) drug therapy
CPT/HCPCS: 77290; 77295; 77300; 77301; 77334; 77336; 77338; 77373; 77470; 96523; Q9967

== ENCOUNTER → 2021-07-01 13:06 | Day surgery (SDC) | payer MEDICAID, SELFPAY ==
[2021-07-01 13:20] VITALS: BP 123/58; PULSE 84; RESP 18; TEMP 36.5
--- NOTE | 2021-07-01 13:53 | PC.NURSE ---
1320 Right chest port accessed with 19 gauge port needle. Flushed per protocol with 20 mL NS. Good blood return noted. Port flushed without difficulty. Site de accessed with 2x2 dressing applied. Pt tolerated procedure well.
== END ==
PROVIDERS: PCP Internal Medicine; Visit Provider Internal Medicine
DX: Z45.2 Encounter for adjustment and management of vascular access device (principal)
CPT/HCPCS: 96368

== ENCOUNTER 2021-07-18 05:33 | Outpatient (RCR) | payer MEDICAID, SELFPAY ==
--- NOTE | 2021-07-18 11:47 | ONCRAD EPV_ITS ---
Radiation Oncology Follow-Up Note Patient Name: Sakina Lombardi Date of : 1950 Date of Service: 07/18/2021 Attending Physician: Fortunato Salazar M.D. Sakina Lombardi returned to my office this morning for a routinely scheduled follow-up appointment. She completed stereotactic ablative body radiotherapy in May for the management of a clinical stage IA3 (T1cN0) lung cancer. CT angiography revealed a 1.4 cm x 1.4 cm x 2.3 cm pulmonary nodule in the right lower lobe of the lung. A PET CT confirmed hypermetabolic activity within the previously described right lower lobe lesion (SUV 12.8) without evidence of lymphadenopathy nor metastatic disease. A navigational bronchoscopy with endobronchial ultrasound-guided biopsy was performed on April 22, 2021. The right lower lobe mass biopsy specimen was suspicious for malignancy SABR was delivered between the dates of June 09, 2021 through June 11, 2021. A prescribed dose of 54 Gy was delivered in three fractions encompassing 3 elapsed days. On review of systems, she reported increased dyspnea on exertion. On physical examination, she weighed 100 lbs. The temperature was 98.81???F. Her blood pressure was 123/51 mmHg. The pulse was 58 bpm and her respiratory rate was 22 breaths per minute. Bilateral rhonchi and wheezes were auscultated. In summary, Ms. Lombardi returned for a routine post-radiotherapy follow-up. She declined a Medrol Dosepak. She will be scheduled for CT imaging to assess treatment response consistent with NCCN Guidelines. Signed by: Dr. Fortunato Salazar 07/18/2021 11:46:14 AM
== END 2021-07-29 23:59 | disposition home or self-care (01) ==
LOC: ONCMED 05:33
PROVIDERS: PCP Internal Medicine; Visit Provider Radiology Radiation Oncology
DX: C34.31 Malignant neoplasm of lower lobe, right bronchus or lung (principal); R06.00 Dyspnea, unspecified; R06.2 Wheezing; Z79.899 Other long term (current) drug therapy
CPT/HCPCS: 99024

== ENCOUNTER → 2021-07-28 15:49 | Outpatient (BNVA) | payer MEDICAID, SELFPAY | PROVIDERS: PCP Internal Medicine; Visit Provider Internal Medicine Cardiovascular Disease | DX: R06.02 Shortness of breath (principal); I50.33 Acute on chronic diastolic (congestive) heart failure; I10 Essential (primary) hypertension | CPT/HCPCS: 80048; 83880 ==

== ENCOUNTER 2021-08-06 18:11 | Emergency (ER) | payer MEDICAID, SELFPAY ==
[2021-08-06 18:17] VITALS: BP 114/65; PULSE 99; RESP 20; TEMP 36.9; O2SAT 97; BMI 18.9
[2021-08-06 19:08] LABS: SARS Covid-2 Antigen Negative (Negative)
--- NOTE | 2021-08-06 20:20 | ED_ITS ---
HPI - SOB/Dyspnea General: Chief Complaint: Shortness of Breath/Dyspnea Stated Complaint: covid symptoms Time Seen by Provider: 08/06/21 20:19 History of Present Illness: HPI Narrative: Ms. Lombardi is a 71-year-old lady with significant past medical history of hypertension, hyperlipidemia, severe COPD, chronic hypoxic respiratory failure on 3 L at baseline who presents emerged department due to shortness of breath. Symptom onset was approximately 1 week ago. She notes gradual onset increased shortness of breath and cough. She has most pronounced symptoms with exertion however they do not cope with rest. She has associated generalized malaise but no specific fevers or other infectious symptoms. She has a home pulse oximeter and notes increased drop in her oxygen saturation. She has had 2 turn her oxygen up. Overall the intensity of symptoms is moderate. She has had similar episodes in past. Course has been worsening. She denies sick contacts Review of Systems General: Reports: 10 or more systems reviewed and unremarkable except in HPI and below Narrative: CONSTITUTIONAL: denies fever, see HPI EYES - denies pain, denies loss of vision NOSE -mild congestion. THROAT - denies sore throat or difficulty swallowing. CARDIOVASCULAR - denies chest pain and palpitations RESPIRATORY -see HPI GASTROINTESTINAL - denies abdominal pain, no nausea vomiting, no changes in bowel habits GENITOURINARY - denies dysuria or urinary frequency MUSCULOSKELETAL- denies deformity or pain SKIN - denies rashes or new changed skin lesions NEUROLOGIC - denies focal weakness or sensory changes HEMATOLOGIC/LYMPHATIC - denies easy bruising or lymphadenopathy. PFS ED PFSH: Medical History Atypical chest pain Patient had a cardiac catheterization in 2009 and was found to have no significant coronary disease. Atypical chest pain Benign essential hypertension CAD (coronary artery disease) CVA (cerebral vascular accident) Dyslipidemia (high LDL; low HDL) History of COPD Hx of carotid stenosis SOB (shortness of breath) Thyroid cancer Surgical History H/O thyroidectomy History of ankle surgery History of back surgery History of bilateral carpal tunnel release History of hip surgery History of lumpectomy History of rectal surgery Hx of hysterectomy Port-A-Cath in place S/P hardware removal Spine Family History Brother Leukemia Diabetes Lung disease Mother Anesthesia complication CAD (coronary artery disease) Father Bleeding disorder Clotting disorder CAD (coronary artery disease) Cancer Stroke Sister CAD (coronary artery disease) Chronic kidney disease (CKD) Lung disease Family/Other Diabetes Stroke Grandfather Suicide Denies family history of Dementia Social History Smoking and tobacco status: current every day smoker cigarettes Packs smoked per day: 0.5 Years cigarettes smoked: 55 [ Other cigarette details: Hx of 2 PPD x 50 Years ] Quit status (tobacco): considering quitting Second hand smoke exposure: Yes Smoking risk assessment/counseling performed?: Yes Alcohol intake: never Lives independently: Yes Household members: none Housing: Apartment Marital status: / Current occupational status: disabled History of recent travel: No Current gender identity: Female Physical Exam Narrative: EXAM NARRATIVE: GENERAL/CONSTITUTIONAL -chronically ill-appearing. Mild increased respiratory effort. Supplemental oxygen in place Eyes - PERRL, no conjunctival injection ENMT - Atraumatic external nose and ears. Moist mucous membranes NECK - supple. trachea midline CARDIOVASCULAR - regular rate and rhythm. Peripheral pulses 2+ and equal RESPIRATORY -diminished to auscultation bilaterally without focality. Mild increased work of breathing ABDOMEN/GI - Nontender/Nondistended. No tenderness to percussion or evidence of peritonitis MSK - Extremities without obvious deformity or tenderness to palpation SKIN -pale, Dry NEURO - alert and appropriately oriented. strength and sensation intact. Moves all extremities equally. Course ED course: - Patient was seen and evaluated by me at bedside - Patient placed on cardiac monitors, IV access obtained - Initial evaluation notable for chronically ill appearance, mild increased work of breathing, no betito respiratory distress. - Labs and imaging obtained and reviewed -Symptom treatment/breathing treatments ordered - Labs notable for no leukocytosis, no significant metabolic abnormalities to explain patient's symptoms. - Imaging notable for no lobar consolidation. Known malignant knee lesion discussed - Upon serial reexamination after treatment the patient was mildly improved. I discussed the need for CTA given D-dimer which the patient declined. - The patient is alert and oriented x3. She carries normal fluent conversation and has a logical goal-directed thought process. She can explain the risks up to and including of not obtaining a CTA ordered to rule out blood clot. She can explain her primary concerns and reasons for not obtaining the test. The patient was adamant about not having CTA performed. She understands that she may return to the emergency department for any reason at any time - Based on patient history, evaluation, labs, and imaging as interpreted the most likely cause of the patient's condition is exacerbation of COPD though given limited evaluation additional etiologies such as pulmonary realism cannot be excluded - Patient discharged in satisfactory condition. Vital Signs: Vital signs: Vital Signs Temperature 98.5 F 08/06/21 18:17 Pulse Rate 82 08/07/21 01:45 Respiratory Rate 22 H 08/07/21 01:45 Blood Pressure 153/88 08/07/21 01:45 Pulse Oximetry 96 08/07/21 01:45 MDM - SOB/Dyspnea Medical Records: Attestation: I reviewed the patient's medical records. Lab Data: Attestation: I reviewed the patient's lab results. Labs: Lab Results 08/06/21 08/06/21 08/06/21 Range/Units 18:28 21:20 21:20 WBC 7.9 (4.0-10.0) 10^3/ uL RBC 3.92 L (4.1-5.3) 10^6/u L Hgb 11.9 (11.5-15.3) g/dL Hct 37.6 (37.0-47.0) % MCV 95.9 (81-99) fl MCH 30.4 (28.0-34.0) pg MCHC 31.6 (30.0-36.0) g/dL RDW 14.5 (12.1-15.1) % Plt Count 126 L (130-400) 10^3/c mm MPV 10.4 (7.4-10.4) fL Neut % (Auto) 74.8 % Lymph % (Auto) 10.5 % [place] % (Auto) 11.3 % Eos % (Auto) 2.4 % Baso % (Auto) 0.5 % Neut # (Auto) 5.90 (1.8-7.7) 10^3/u L Lymph # (Auto) 0.8 (0.8-4.8) 10^3/u L [place] # (Auto) 0.9 (0.2-0.9) 10^3/u L Eos # (Auto) 0.2 (0.0-0.8) 10^3/u L Baso # (Auto) 0.0 (0.0-0.1) 10^3/u L Nucleated RBC % (a uto) 0 % Nucleated RBCs # 0.0 /100WBC D-Dimer (0-0.59) ug/mIFE U Sodium 137 (136-145) mmol/L Potassium 3.9 (3.5-5.1) mmol/L Chloride 97 L (98-107) mmol/L Carbon Dioxide 30 H (22-29) mmol/L Anion Gap 13.9 (5-19) BUN 9 (8-23) mg/dL Creatinine 0.8 (0.5-0.9) mg/dL GFR Calculation Not Reportable Glucose 75 (65-115) mg/dL Calculated Osmolal ity 281 L (285-295) mOsm/k g Lactate (0.5-2.2) mmol/L Calcium 8.2 L (8.5-10.5) mg/dL Total Bilirubin 0.8 (0.15-1.2) mg/dL AST 20 (0-32) U/L ALT 11 (0-33) U/L Alkaline Phosphata se 138 H (35-105) IU/L Troponin T Baselin e (0-10) ng/L Troponin T 120 Min red cliff (0-10) ng/L Delta Troponin T (0-10) ABS# C-Reactive Protein 30.2 H (0.0-4.9) mg/L NT-Pro-B Natriuret Pep 888 H (0-125) pg/mL Total Protein 6.3 L (6.6-8.7) g/dL Albumin 4.0 (3.5-5.2) g/dL Globulin 2.3 (1.3-4.6) g/dL Procalcitonin 0.04 (0-0.5) ng/mL Urine Color (Yellow) Urine Appearance (CLEAR) Urine pH (5-7) Ur Specific Gravit y (1.005-1.030) Urine Protein (Negative) Urine Glucose (UA) (Normal) Urine Ketones (Negative) Urine Blood (Negative) Urine Nitrate (Negative) Urine Bilirubin (Negative) Urine Urobilinogen (Negative) mg/dL Ur Leukocyte Brielle ase (Negative) Urine RBC (0-2) /hpf Urine WBC (0-5) /hpf Ur Squamous Epith Cells (0-5) /hpf Amorphous Sediment Urine Bacteria (NONE) /hpf SARS-CoV-2 Ag (Rap id) Negative (Negative) 08/06/21 08/06/21 08/06/21 Range/Units 21:20 21:20 21:20 WBC (4.0-10.0) 10^3/ uL RBC (4.1-5.3) 10^6/u L Hgb (11.5-15.3) g/dL Hct (37.0-47.0) % MCV (81-99) fl MCH (28.0-34.0) pg MCHC (30.0-36.0) g/dL RDW (12.1-15.1) % Plt Count (130-400) 10^3/c mm MPV (7.4-10.4) fL Neut % (Auto) % Lymph % (Auto) % [place] % (Auto) % Eos % (Auto) % Baso % (Auto) % Neut # (Auto) (1.8-7.7) 10^3/u L Lymph # (Auto) (0.8-4.8) 10^3/u L [place] # (Auto) (0.2-0.9) 10^3/u L Eos # (Auto) (0.0-0.8) 10^3/u L Baso # (Auto) (0.0-0.1) 10^3/u L Nucleated RBC % (a uto) % Nucleated RBCs # /100WBC D-Dimer 0.79 H (0-0.59) ug/mIFE U Sodium (136-145) mmol/L Potassium (3.5-5.1) mmol/L Chloride (98-107) mmol/L Carbon Dioxide (22-29) mmol/L Anion Gap (5-19) BUN (8-23) mg/dL Creatinine (0.5-0.9) mg/dL GFR Calculation Glucose (65-115) mg/dL Calculated Osmolal ity (285-295) mOsm/k g Lactate 0.3 L (0.5-2.2) mmol/L Calcium (8.5-10.5) mg/dL Total Bilirubin (0.15-1.2) mg/dL AST (0-32) U/L ALT (0-33) U/L Alkaline Phosphata se (35-105) IU/L Troponin T Baselin e 17 H (0-10) ng/L Troponin T 120 Min red cliff (0-10) ng/L Delta Troponin T (0-10) ABS# C-Reactive Protein (0.0-4.9) mg/L NT-Pro-B Natriuret Pep (0-125) pg/mL Total Protein (6.6-8.7) g/dL Albumin (3.5-5.2) g/dL Globulin (1.3-4.6) g/dL Procalcitonin (0-0.5) ng/mL Urine Color (Yellow) Urine Appearance (CLEAR) Urine pH (5-7) Ur Specific Gravit y (1.005-1.030) Urine Protein (Negative) Urine Glucose (UA) (Normal) Urine Ketones (Negative) Urine Blood (Negative) Urine Nitrate (Negative) Urine Bilirubin (Negative) Urine Urobilinogen (Negative) mg/dL Ur Leukocyte Brielle ase (Negative) Urine RBC (0-2) /hpf Urine WBC (0-5) /hpf Ur Squamous Epith Cells (0-5) /hpf Amorphous Sediment Urine Bacteria (NONE) /hpf SARS-CoV-2 Ag (Rap id) (Negative) 08/06/21 08/06/21 Range/Units 22:00 23:25 WBC (4.0-10.0) 10^3/ uL RBC (4.1-5.3) 10^6/u L Hgb (11.5-15.3) g/dL Hct (37.0-47.0) % MCV (81-99) fl MCH (28.0-34.0) pg MCHC (30.0-36.0) g/dL RDW (12.1-15.1) % Plt Count (130-400) 10^3/c mm MPV (7.4-10.4) fL Neut % (Auto) % Lymph % (Auto) % [place] % (Auto) % Eos % (Auto) % Baso % (Auto) % Neut # (Auto) (1.8-7.7) 10^3/u L Lymph # (Auto) (0.8-4.8) 10^3/u L [place] # (Auto) (0.2-0.9) 10^3/u L Eos # (Auto) (0.0-0.8) 10^3/u L Baso # (Auto) (0.0-0.1) 10^3/u L Nucleated RBC % (a uto) % Nucleated RBCs # /100WBC D-Dimer (0-0.59) ug/mIFE U Sodium (136-145) mmol/L Potassium (3.5-5.1) mmol/L Chloride (98-107) mmol/L Carbon Dioxide (22-29) mmol/L Anion Gap (5-19) BUN (8-23) mg/dL Creatinine (0.5-0.9) mg/dL GFR Calculation Glucose (65-115) mg/dL Calculated Osmolal ity (285-295) mOsm/k g Lactate (0.5-2.2) mmol/L Calcium (8.5-10.5) mg/dL Total Bilirubin (0.15-1.2) mg/dL AST (0-32) U/L ALT (0-33) U/L Alkaline Phosphata se (35-105) IU/L Troponin T Baselin e (0-10) ng/L Troponin T 120 Min [place] cliff 14.57 H (0-10) ng/L Delta Troponin T -2.43 L (0-10) ABS# C-Reactive Protein (0.0-4.9) mg/L NT-Pro-B Natriuret Pep (0-125) pg/mL Total Protein (6.6-8.7) g/dL Albumin (3.5-5.2) g/dL Globulin (1.3-4.6) g/dL Procalcitonin (0-0.5) ng/mL Urine Color Yellow (Yellow) Urine Appearance Clear (CLEAR) Urine pH 6.5 (5-7) Ur Specific Gravit y 1.005 (1.005-1.030) Urine Protein Neg (Negative) Urine Glucose (UA) Norm (Normal) Urine Ketones Negative (Negative) Urine Blood 3+ H (Negative) Urine Nitrate Negative (Negative) Urine Bilirubin Neg (Negative) Urine Urobilinogen Norm (Negative) mg/dL Ur Leukocyte Brielle ase Negative (Negative) Urine RBC 0-4 H (0-2) /hpf Urine WBC 0-4 H (0-5) /hpf Ur Squamous Epith Cells 0-4 H (0-5) /hpf Amorphous Sediment Not Reportable Urine Bacteria Trace (NONE) /hpf SARS-CoV-2 Ag (Rap id) (Negative) EKG Data^: EKG 1: Attestation: I personally reviewed and interpreted this EKG as follows: EKG Interpretation Date: 08/06/21 EKG interpretation time: 22:21 Prior EKG tracings: available for review Interpretation: Twelve-lead EKG shows a regular sinus rhythm at a rate of 73. SC interval 161, QRS duration 94, QTc 450. Normal axis. Interpretation: Sinus rhythm. Somewhat limited interpretation due to baseline. Discharge Plan Discharge Patient Disposition: Home Clinical Impression: COPD with acute exacerbation Condition: Fair Prescriptions: New prednisone 50 mg tablet 50 mg PO DAILY Qty: 5 RF: 0 azithromycin 500 mg tablet 500 mg PO DAILY 5 Days RF: 0 No Action magnesium 30 mg tablet 30 mg PO DAILY Qty: 90 RF: 6 potassium chloride 20 mEq/15 mL liquid 20 meq PO BID PRN (Reason: hypokalemia) 60 Days Qty: 1800 RF: 3 Spiriva with HandiHaler 18 mcg capsule, w/inhalation device 1 cap inhalation DAILY 30 Days Qty: 60 RF: 3 spironolactone 50 mg tablet 50 mg PO BID Qty: 60 RF: 3 cetirizine 10 mg tablet 10 mg PO DAILY Qty: 90 RF: 3 (DME) oxygen See Rx Instructions .Route .MEDSUPPLY Qty: 1 RF: 0 calcitriol [Rocaltrol] 0.5 mcg capsule 0.5 mcg PO DAILY Qty: 90 RF: 3 levothyroxine 75 mcg capsule 75 mcg PO DAILY Qty: 30 RF: 0 nitroglycerin [Nitrostat] 0.4 mg Tablet, Sublingual 0.4 mg SUBLINGUAL Q5M PRN (Reason: Chest Pain) RF: 0 polyethylene glycol 3350 [Miralax] 17 gram/dose Powder 17 g PO DAILY PRN (Reason: Constipation) RF: 0 buprenorphine-naloxone [Suboxone] 8-2 mg Film 1 film SUBLINGUAL Q8H RF: 0 Hold Instructions: Resume on 05/28/20. May reinstitute in the next 7 days, but do not use with [place] and tramadol diphenhydramine HCl [Benadryl] 25 mg Capsule 25 mg PO BID MDD SEE PHARAMCY COMMENT PRN (Reason: Allergy Symptoms) RF: 0 fluticasone propionate 50 mcg/actuation spray,suspension 2 spray intranasal BID PRN (Reason: Allergy Symptoms) RF: 0 atorvastatin 40 mg tablet 40 mg PO DAILY RF: 0 tizanidine 4 mg tablet 4 mg PO TID PRN (Reason: Muscle Spasticity) RF: 0 Ventolin HFA 90 mcg/actuation HFA aerosol inhaler 2 inh inhalation Q4H PRN (Reason: SOB/WHEEZING) RF: 0 metoprolol tartrate 25 mg tablet 25 mg PO BID RF: 0 Daliresp 500 mcg tablet 500 mcg PO DAILY RF: 0 Discharge Orders: Discharge ED (Routine); Ordered 08/07/21 Ordered By: Jamal Guillen Referrals: Eliezer Mejia MD [Primary Care Provider] - Discharge Diet: Usual diet Discharge Activity: Resume usual activity Patient Instructions: Chronic Obstructive Pulmonary Disease (ED), Opioid Safety Activity Restrictions/Additional Instructions: Thank you for visiting the emergency department. You were seen and evaluated for increased shortness of breath. The exact cause of your symptoms is somewhat unclear though may be related to exacerbation of your COPD. You were incompletely evaluated due to declining CT scan of your chest to evaluate possibility of blood clots (pulmonary emboli). You may return to the emergency department for any reason at any time that you are concerned about and feel needs emergency department evaluation. Coding Level of Care Code ED District Home [employer] Agent for Delmer Ray
--- NOTE | 2021-08-06 20:37 | XRR_ITS ---
PROCEDURE INFORMATION: Exam: XR Chest Exam date and time: 08/06/2021 8:37 PM Age: 71 years old Clinical indication: Cough and shortness of breath; Prior surgery; Surgery type: Port; Patient HX: HX lung cancer. Cough & sobx 1wk TECHNIQUE: Imaging protocol: XR of the chest. Views: 1 view. COMPARISON: 1. CR XR chest 1V portable [id number] 03/28/2021 1:[address] angio chest PE protcl [id number] 03/28/2021 5:08:47 AM FINDINGS: Tubes, catheters and devices: Stable right [id number]. Stable stimulator lead over the midthoracic spine. Lungs: Changes of emphysema. 2.0 cm right infrahilar nodule. Pleural spaces: Unremarkable. No pleural effusion. No pneumothorax. Heart/Mediastinum: Unremarkable. No cardiomegaly. Bones/joints: Unremarkable. XR/XR chest 1V portable [id number] IMPRESSION: 1. No acute finding. 2. 2.0 cm right infrahilar malignant nodule measures slightly smaller than on the prior CT.
[2021-08-06] MEDS: sodium chloride 0.9% 500 ML IV (21:36)
[2021-08-06 21:53] LABS: Basophils % 0.5 %; Eosinophils # 0.2 10^3/uL (0.0-0.8); Eosinophils % 2.4 %; Hematocrit 37.6 % (37.0-47.0); Hemoglobin 11.9 g/dL (11.5-15.3); Lymphocytes # 0.8 10^3/uL (0.8-4.8); Lymphocytes % 10.5 %; Mean Corpuscular HGB Conc 31.6 g/dL (30.0-36.0); Mean Corpuscular Hemoglobin 30.4 pg (28.0-34.0); Mean Corpuscular Volume 95.9 fl (81-99); Mean Platelet Volume 10.4 fL (7.4-10.4); Monocytes # 0.9 10^3/uL (0.2-0.9); Monocytes % 11.3 %; Neutrophils % 74.8 %; Nucleated Red Blood Cells % 0 %; Platelet Count 126 10^3/cmm (130-400); Red Blood Count 3.92 10^6/uL (4.1-5.3); Red Cell Distribution Width 14.5 % (12.1-15.1); White Blood Count 7.9 10^3/uL (4.0-10.0)
[2021-08-06 22:07] LABS: Lactate (Lactic Acid level) 0.3 mmol/L (0.5-2.2)
[2021-08-06 22:10] LABS: Troponin(5th) Baseline 17 ng/L (0-10)
[2021-08-06 22:18] LABS: Add Urine Culture? No; Add Urine Microscopic? YES; Bacteria Urine TRACE /hpf; Bilirubin Urine Neg (Negative); Blood Urine 3+ (Negative); Glucose Urine UA Norm (Normal); Ketones Urine Negative (Negative); Leukocyte Esterase Urine Negative (Negative); Nitrate Urine Negative (Negative); Protein Urine Neg (Negative); RBC Urine 0-4 /hpf (0-2); Specific Gravity, Urine 1.005 (1.005-1.030); Squamous Epithelial Cell Urine 0-4 /hpf (0-5); Urine Appearance Clear (CLEAR); Urine Color Yellow (Yellow); Urobilinogen Urine Norm (Negative); WBC Urine 0-4 /hpf (0-5); pH Urine 6.5 (5-7)
[2021-08-06 22:20] LABS: NT Pro B Type Natriuretic Pept 888 pg/mL (0-125); Procalcitonin 0.04 ng/mL (0-0.5)
[2021-08-06 22:31] LABS: Alanine Aminotransferase 11 U/L (0-33); Alkaline Phosphatase 138 IU/L (35-105); Anion Gap 13.9 (5-19); Aspartate Amino Transferase 20 U/L (0-32); Blood Urea Nitrogen 9 mg/dL (8-23); C Reactive Protein 30.2 mg/L (0.0-4.9); Calcium 8.2 mg/dL (8.5-10.5); Carbon Dioxide 30 mmol/L (22-29); Chloride 97 mmol/L (98-107); Globulin 2.3 g/dL (1.3-4.6); Glucose 75 mg/dL (65-115); Osmolality Calculated 281 mOsm/kg (285-295); Potassium 3.9 mmol/L (3.5-5.1); Sodium 137 mmol/L (136-145); Total Bilirubin 0.8 mg/dL (0.15-1.2); Total Protein 6.3 g/dL (6.6-8.7)
--- NOTE | 2021-08-06 22:38 | ECG_ITS ---
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 Measurements Intervals Anita Rate: 73 P: 60 SC: 161 QRS: 32 QRSD: 94 T: 26 QT: 408 QTc: 450 Interpretive Statements SINUS RHYTHM WITH OCCASIONAL SUPRAVENTRICULAR PREMATURE COMPLEXES Compared to ECG 04/22/2021 07:20:59 Sinus bradycardia no longer present Electronically Signed On 08-07-2021 9:09:02 CDT by Rosette Cunningham M.D. [id number]
[2021-08-06 22:40] VITALS: PULSE 79; RESP 19; O2SAT 95
[2021-08-06] MEDS: ipratropium-albuterol 3 mL Neb INHALATION ×3 (22:40→22:47)
[2021-08-06 22:51] VITALS: PULSE 73
[2021-08-06] MEDS: morphine 4 mg/mL SDV 1 mL IVP (22:54)
[2021-08-06 23:08] LABS: D Dimer 0.79 ug/mIFEU (0-0.59)
[2021-08-07] MEDS: azithromycin 500 MG in sodium chloride 0.9% 250 ML 250 MG IV
[2021-08-07 00:11] LABS: Troponin 5 2HR 14.57 ng/L (0-10)
[2021-08-07 00:14] LABS: Troponin 5 2HR Delta -2.43 ABS# (0-10)
[2021-08-07 01:45] VITALS: BP 153/88; PULSE 82; RESP 22; O2SAT 96
== END 2021-08-07 01:40 | disposition home or self-care (01) ==
PROVIDERS: Nurse Practitioner Family; Emergency Provider Emergency Medicine; PCP Internal Medicine
DX: J44.1 Chronic obstructive pulmonary disease with (acute) exacerbation (principal); I25.10 Atherosclerotic heart disease of native coronary artery without angina pectoris; Z86.73 Personal history of transient ischemic attack (TIA), and cerebral infarction without residual deficits; E78.5 Hyperlipidemia, unspecified; Z85.850 Personal history of malignant neoplasm of thyroid; F17.210 Nicotine dependence, cigarettes, uncomplicated
CPT/HCPCS: 71045; 80053; 81001; 83605; 83880; 84145; 84484; 85025; 85378; 86140; 87426; 93005; 94640; 96365; 96375; 99284; J0456; J2270; J2930; J7040; J7050; J7611

== ENCOUNTER 2021-09-10 10:44 | Outpatient (CLI) | payer MEDICAID, SELFPAY ==
--- NOTE | 2021-09-10 10:54 | CT_ITS ---
WS: [id number] CT CHEST TECHNIQUE: Contrast enhanced CT of the chest with coronal and sagittal reformatted images. CLINICAL INFORMATION: RESTAGING EVALUATION, LUNG CANCER COMPARISON: CT March 28, 2021 and PET/CT April 19, 2021 DLP: 576.[address] scans at [facility] use at least one of these dose optimization techniques: automated e xposure control; mA and/or kV adjustment per patient size (includes targeted exams where dose is matc hed to clinical indication); or iterative reconstruction. FINDINGS:Previous described lobulated FDG positive central right lower lobe nodule today measures 1.8 x 1.2 cm compared to 2.7 x 1.8 cm improved compared to the prior PET/CT. In addition, the adjacent a dditional right lower lobe satellite nodule previous described today measures 1 to 2 mm nearly resolv ed. Moderate chronic emphysematous changes. No acute pulmonary infiltrates. No focal pneumonia or pleural fluid. Aortic calcification. Normal caliber thoracic aorta. Proximal main pulmonary arteries are nor mal. No mediastinal or hilar lymphadenopathy. Coronary calcification. No axillary lymphadenopathy. Cholecystectomy clips. Thoracic kyphosis. Dorsal spinal stimulator. A few slightly prominent shotty l ymph nodes in the upper abdomen unchanged from previous CT/CT chest w con* [id number] IMPRESSION: 1. Improved central right lower lobe lobulated pulmonary nodule described abov e consistent with interval response to therapy. 2. Additional tiny right lower lobe satellite nodule also decreased in size. P reviously measuring 5 mm today measuring 1 to 2 mm. 3. No other significant findings.
[2021-09-10] MEDS: iohexol 300 mg/mL 100 mL Btl IV (12:12)
== END 2021-09-10 10:45 | disposition home or self-care (01) ==
LOC: RADWPI 10:46 → ONCMED 11:34
PROVIDERS: PCP Internal Medicine; Visit Provider Radiology Radiation Oncology
DX: C34.11 Malignant neoplasm of upper lobe, right bronchus or lung (principal); J43.9 Emphysema, unspecified; I70.0 Atherosclerosis of aorta; I25.10 Atherosclerotic heart disease of native coronary artery without angina pectoris
CPT/HCPCS: 71260; Q9967

== ENCOUNTER 2021-09-19 06:38 | Outpatient (CLI) | payer MEDICAID, SELFPAY ==
--- NOTE | 2021-09-19 11:23 | ONCRAD EPV_ITS ---
Radiation Oncology Follow-Up Note Patient Name: Sakina Lombardi Date of : 1950 Date of Service: 09/19/2021 Attending Physician: Fortunato Salazar M.D. Sakina Lombardi returned to my office this morning for a routinely scheduled follow-up appointment. She completed stereotactic ablative body radiotherapy in May for the management of a clinical stage IA3 (T1cN0) lung cancer. CT angiography revealed a 1.4 cm x 1.4 cm x 2.3 cm pulmonary nodule in the right lower lobe of the lung. A PET CT confirmed hypermetabolic activity within the previously described right lower lobe lesion (SUV 12.8) without evidence of lymphadenopathy nor metastatic disease. A navigational bronchoscopy with endobronchial ultrasound-guided biopsy was performed on April 22, 2021. The right lower lobe mass biopsy specimen was suspicious for malignancy SABR was delivered between the dates of June 09, 2021 through June 11, 2021. A prescribed dose of 54 Gy was delivered in three fractions encompassing [address] of the thorax ordered on September 10, 2021 described a decrease in size of the right lower lobe nodule. The nodule measured 1.8 cm x 1.2 cm. It previously measured 2.7 cm x 1.8 cm. On review of systems, she reported continued poor pulmonary function. On physical examination, she weighed 99 lbs. The temperature was 98.9???F and her blood pressure was 105/52 mmHg. The pulse was 62 bpm and her respiratory rate was 20 breaths per minute. Oxygen saturation while breathing ambient air was 96%. Bilateral wheezes were auscultated. In summary, Ms. Lombardi returned for a routine post-SABR follow-up. Recent imaging demonstrated a partial response to treatment. She will continue follow-up according to NCCN Guidelines. Signed by: Dr. Fortunato Salazar 09/19/2021 11:21:34 AM
== END 2021-09-19 06:39 | disposition home or self-care (01) ==
LOC: ONCMED 06:38
PROVIDERS: PCP Internal Medicine; Visit Provider Radiology Radiation Oncology
DX: C34.31 Malignant neoplasm of lower lobe, right bronchus or lung (principal); R06.00 Dyspnea, unspecified; R06.2 Wheezing; Z45.2 Encounter for adjustment and management of vascular access device; Z79.899 Other long term (current) drug therapy
CPT/HCPCS: 96523; 99215

== ENCOUNTER 2021-10-16 14:07 | Outpatient (CLI) | payer MEDICAID, SELFPAY | END 2021-10-16 14:08 | disposition home or self-care (01) | PROVIDERS: PCP Internal Medicine; Visit Provider Radiology Radiation Oncology | DX: Z45.2 Encounter for adjustment and management of vascular access device (principal) | CPT/HCPCS: 96523 ==

== ENCOUNTER 2021-11-03 13:07 | Outpatient (CLI) | payer MEDICAID, SELFPAY ==
--- NOTE | 2021-11-03 13:30 | USCV_ITS ---
Sakina Lombardi Age: 71 Gender: F : 1950 Exam Date: 11/03/2021 13:34 Ordering Phys: Chante Salmon MD ([email or web address]) Technologist: Marilynn Early Exam Location: [facility] [place] Indication: Long-term smoker with lung CA s/p rad therapy. Risk Factors: Long-term smoker with lung CA s/p rad therapy. Previous Vascular Surgery: None. Right Brachial BP: / Left Brachial BP: / Right Left Velocity (cm/s) Spectral Plaque Velocity (cm/s) Spectral Plaque Syst/Diast Broadening Syst/Diast Broadening 79.40/ 9.90 Prox CCA 81.60 / 18.70 82.70/ 15.40 Mid CCA 71.70 / 13.20 89.30/ 11.00 Distal CCA 69.50 / 16.50 78.30/ 13.20 Prox ICA 87.10 / 20.90 100.30/25.40 Mid ICA 90.40 / 20.90 155.40/29.50 Distal ICA 98.10 / 24.30 145.50 ECA 130.10 1.74 ICA/CCA 1.20 Antegrade Vertebral Antegrade 139.8/ 20.20 cm/s 81.60/ 18.70 cm/s 0 Tri Subclavian Tri 84.90 83.80 FINDINGS Mild to moderate heterogeneous plaques at the bifurcations and proximal internal carotid arteries bilaterally Very tortuous distal ICA on the right side Moderate diffuse plaques in the right vertebral artery CONCLUSIONS Mild to moderate heterogeneous plaques at the bifurcations and proximal internal carotid arteries bilaterally, suggesting less than 50% stenosis. Elevated velocity in the right distal internal carotid artery, most likely due to tortuosity. Moderate diffuse plaques in the right vertebral artery. No significant stenosis in the external carotid or subclavian arteries bilaterally. Compared to the study from 08/15/2019, there may not be a significant change Dr Chante Salmon MD [facility] (Electronically Signed) Final Date: 03 November 2021 19:48 S
== END 2021-11-03 13:08 | disposition home or self-care (01) ==
LOC: RAD 13:08
PROVIDERS: PCP Internal Medicine; Visit Provider Internal Medicine Cardiovascular Disease
DX: I77.9 Disorder of arteries and arterioles, unspecified (principal); Z86.79 Personal history of other diseases of the circulatory system; F17.210 Nicotine dependence, cigarettes, uncomplicated; I65.23 Occlusion and stenosis of bilateral carotid arteries
CPT/HCPCS: 93880

== ENCOUNTER 2021-11-13 15:29 | Outpatient (CLI) | payer MEDICAID, SELFPAY | END 2021-11-13 15:30 | disposition home or self-care (01) | LOC: ONCMED 15:33 | PROVIDERS: PCP Internal Medicine; Visit Provider Internal Medicine | DX: Z45.2 Encounter for adjustment and management of vascular access device (principal) | CPT/HCPCS: 96523 ==

== ENCOUNTER 2022-01-09 12:49 | Outpatient (CLI) | payer MEDICAID, SELFPAY ==
--- NOTE | 2022-01-09 12:54 | CT_ITS ---
WS: [id number] CT CHEST, ABDOMEN, AND PELVIS TECHNIQUE: Contrast-enhanced CT of the chest, abdomen, and pelvis with coronal and sagittal reformatt ed images. CLINICAL INFORMATION: RESTAGING EVAL-LUNG CANCER COMPARISON: PET/CT April 19, 2021, CT chest September 10, 2021 DLP: 1178.[address] scans at [facility] use at least one of these dose optimization techniques: automated e xposure control; mA and/or kV adjustment per patient size (includes targeted exams where dose is matc hed to clinical indication); or iterative reconstruction. CT CHEST: Previously described RIGHT lower lobe pulmonary nodule today measures 1.5 x 1.2 cm not significantly changed compared to previous. Previously described RIGHT lower lobe nodule measuring 1 to 2 mm unchan ged. Moderate chronic emphysematous changes. No acute pulmonary infiltrates. Slight atelectasis RIGHT lowe r lobe. No other suspicious pulmonary parenchymal opacities. Moderate aortic calcification. No mediastinal or hilar lymphadenopathy. Proximal main pulmonary arter ies are normal. No axillary lymphadenopathy. Moderate thoracic kyphosis with dorsal spinal stimulator. CT ABDOMEN AND PELVIS: Mild diffuse fatty infiltration the liver. Mild intrahepatic biliary ductal dilatation is unchanged. Normal portal vein and splenic vein. Normal spleen. Small esophageal hiatal hernia. Normal caliber ab dominal aorta with moderate calcification. Adrenal glands are normal. Normal renal parenchymal enhanc ement. No hydronephrosis. A few tiny incidental renal cysts. Urinary distended bladder. Fatty atrophy of the pancreas. Dilatation common bile duct likely physiolo gic postcholecystectomy. This is unchanged from previous. A few slight prominent periaortic nodes are unchanged since September 10, 2021. No pathologic-appearing abdominal or pelvic lymphadenopathy. No in guinal lymphadenopathy. Fluid distended loops of small bowel in the midabdomen likely due to ileus. No evidence of high-grade obstruction. Osteopenia. Normal lumbar spine. Prior postoperative changes screw fixation RIGHT hip. CT/CT chest abd pel w con* IMPRESSION: 1. No significant change in the RIGHT lower lobe lobulated pulmonary neoplasm compared to September 10, 2021. 2. No mediastinal or hilar lymphadenopathy. 3. No evidence of metastatic disease in the abdomen or pelvis. 4. A few prominent LEFT para-aortic lymph nodes not pathologically enlarged an d unchanged compared to September 10, 2021 5. A few dilated loops of small bowel in the midabdomen likely due to ileus. N o evidence of high-grade obstruction.
[2022-01-09 14:59] LABS: Blood Urea Nitrogen 8 mg/dL (8-23)
[2022-01-09] MEDS: iohexol 300 mg/mL 50 mL Btl PO (15:10)
[2022-01-09] MEDS: iohexol 300 mg/mL 100 mL Btl IV (15:10)
== END 2022-01-09 12:50 | disposition home or self-care (01) ==
LOC: RADWPI 12:51
PROVIDERS: PCP Internal Medicine; Visit Provider Radiology Radiation Oncology
DX: C34.31 Malignant neoplasm of lower lobe, right bronchus or lung (principal)
CPT/HCPCS: 71260; 74177; 82565; 84520; Q9967

== ENCOUNTER 2022-01-16 11:19 | Outpatient (CLI) | payer MEDICAID, SELFPAY ==
--- NOTE | 2022-01-16 11:49 | ONCRAD EPV_ITS ---
Radiation Oncology Follow-Up Note Patient Name: Sakina Lombardi Date of : 1950 Date of Service: 01/16/2022 Attending Physician: Fortunato Salazar M.D. Sakina Lombardi returned to my office this morning for a routinely scheduled follow-up appointment. She completed stereotactic ablative body radiotherapy in May for the management of a clinical stage IA3 (T1cN0) lung cancer. CT angiography revealed a 1.4 cm x 1.4 cm x 2.3 cm pulmonary nodule in the right lower lobe of the lung. A PET CT confirmed hypermetabolic activity within the previously described right lower lobe lesion (SUV 12.8) without evidence of lymphadenopathy nor metastatic disease. A navigational bronchoscopy with endobronchial ultrasound-guided biopsy was performed on April 22, 2021. The right lower lobe mass biopsy specimen was suspicious for malignancy SABR was delivered between the dates of June 09, 2021 through June 11, 2021. A prescribed dose of 54 Gy was delivered in three fractions encompassing [address] of the thorax ordered on January 09, 2022 (independently reviewed in Synapse) described no growth in the right lower lobe nodule. The nodule measured 1.8 cm x 1.2 cm. It previously measured 2.7 cm x 1.8 cm. On review of systems, she reported no changes in her pulmonary function. On physical examination, she weighed 97 lbs. The temperature was 98.5???F and her blood pressure was 131/68 mmHg. The pulse was 70 bpm and her respiratory rate was 18 breaths per minute. Oxygen saturation while breathing 3L via nasal cannula was 100%. Bilateral wheezes were auscultated. In summary, Ms. Lombardi returned for a routine post-SABR follow-up. Recent imaging demonstrated a partial response to treatment. She will continue follow-up according to NCCN Guidelines. Signed by: Dr. Fortunato Salazar 01/16/2022 11:49:27 AM
== END 2022-01-16 11:20 | disposition home or self-care (01) ==
PROVIDERS: Absent Provider Radiology Radiation Oncology; PCP Internal Medicine; Visit Provider Internal Medicine Medical Oncology
DX: C34.31 Malignant neoplasm of lower lobe, right bronchus or lung (principal); R06.2 Wheezing; F17.200 Nicotine dependence, unspecified, uncomplicated; J44.9 Chronic obstructive pulmonary disease, unspecified; Z92.3 Personal history of irradiation; Z45.2 Encounter for adjustment and management of vascular access device
CPT/HCPCS: 96523; 99215

== ENCOUNTER 2022-02-16 14:44 | Outpatient (CLI) | payer MEDICAID, SELFPAY | END 2022-02-16 14:45 | disposition home or self-care (01) | LOC: ONCMED 14:45 | PROVIDERS: PCP Internal Medicine; Visit Provider Internal Medicine Medical Oncology | DX: Z45.2 Encounter for adjustment and management of vascular access device (principal) | CPT/HCPCS: 96523 ==

== ENCOUNTER → 2022-03-03 13:43 | Outpatient (BNVA) | payer MEDICAID, SELFPAY | PROVIDERS: PCP Internal Medicine; Visit Provider Internal Medicine Cardiovascular Disease | DX: I35.1 Nonrheumatic aortic (valve) insufficiency (principal); I50.33 Acute on chronic diastolic (congestive) heart failure; R06.02 Shortness of breath; I11.0 Hypertensive heart disease with heart failure | CPT/HCPCS: 99214 ==

== ENCOUNTER 2022-03-16 13:43 | Outpatient (CLI) | payer MEDICAID, SELFPAY | END 2022-03-16 13:44 | disposition home or self-care (01) | LOC: ONCMED 13:45 | PROVIDERS: PCP Internal Medicine; Visit Provider Internal Medicine Medical Oncology | DX: Z45.2 Encounter for adjustment and management of vascular access device (principal) | CPT/HCPCS: 96523 ==

== ENCOUNTER 2022-04-23 14:13 | Oncology outpatient (recurring) (ONCR) | payer MEDICAID, SELFPAY ==
[2022-04-23 14:36] VITALS: BP 114/52; PULSE 64; RESP 16; TEMP 36.1; O2SAT 98
== END 2022-04-28 23:59 | disposition home or self-care (01) ==
PROVIDERS: PCP Internal Medicine; Visit Provider Internal Medicine Medical Oncology
DX: C34.31 Malignant neoplasm of lower lobe, right bronchus or lung (principal)
CPT/HCPCS: 96523

== ENCOUNTER 2022-04-23 14:38 | Outpatient (CLI) | payer MEDICAID, SELFPAY ==
--- NOTE | 2022-04-23 15:00 | USCV_ITS ---
Sakina Lombardi Age: 72 Gender: F : 1950 Exam Date: 04/23/2022 14:55 Ordering Phys: Chante Salomn MD ([email or web address]) Technologist: MARLON Exam Location: [facility] [place] Indication: Leg pain Risk Factors: Previous Vascular Surgery: RIGHT LEFT BP: 121.0 / 72.00 BP: 117.0/ 67.00 0 0 Waveform Velocity (cm/s) Velocity (cm/s) Waveform Biphasic 65.3 Iliac Prox 83.2 Biphasic Biphasic 83.7 Iliac Mid 85.5 Biphasic Biphasic 81.9 Iliac Distal 119.1 Biphasic Biphasic 73.4 GORE SEAMER 87.7 Biphasic Biphasic 93.7 SFA Prox 92.7 Biphasic Biphasic 86.8 SFA Mid 126.9 Biphasic Biphasic 91.7 SFA Dist 107.0 Biphasic Biphasic 55.2 POP 51.1 Biphasic Biphasic 54.6 LOAN COORDINATOR 31.5 Biphasic Biphasic 19.1 DPA 25.2 Biphasic 1.0 THANG 0.8 FINDINGS Mild diffuse plaques iliac and femoral arteries bilaterally. Resting THANG of 0.8 on the left and 1.0 on the right CONCLUSIONS Features suggestive of mild peripheral artery disease on the left side No significant arterial obstruction on the right side Dr Chante Salmon MD [facility] (Electronically Signed) Final Date: 24 Apr 2022 15:29 S
== END 2022-04-23 14:39 | disposition home or self-care (01) ==
LOC: RAD 14:38
PROVIDERS: PCP Internal Medicine; Visit Provider Internal Medicine Cardiovascular Disease
DX: I73.9 Peripheral vascular disease, unspecified (principal); M79.605 Pain in left leg
CPT/HCPCS: 93925

== ENCOUNTER 2022-05-04 15:10 | Outpatient (CLI) | payer MEDICAID, SELFPAY ==
--- NOTE | 2022-05-04 15:22 | CT_ITS ---
WS: [id number] CT CHEST WITHOUT INTRAVENOUS CONTRAST HISTORY: Follow-up evaluation for lung cancer s/p SABR TECHNIQUE: Contiguous 5 mm axial imaging performed on the thorax. Coronal and sagittal reformats are submitted. All CT scans at [facility] use at least one of these dose optimization techniques: automated exposure control; mA and/or kV adjustment per patient size (includes targeted exams where dose is matched to clinical indication); or iterative reconstruction. CONTRAST: None DLP: 614.41 mGy.cm COMPARISON: 01/09/2022, 03/28/2021 and 09/10/2021 Lungs and central airway: Hyperinflated lungs with changes of emphysema. Treated RIGHT lower lobe jose plasm is unchanged in size measuring 15 x 10 mm on today's examination. There is mild increase in the amount of adjacent peritumoral interstitial thickening and reticulation which is probably a treatmen t response. No new mass identified. There is a 2 mm nodule at the LEFT lung apex which was not seen o n prior studies but may have been present and not visualized due to volume averaging and slice select ion. There are no suspicious masses. Pleura: Normal. No pleural effusion. Heart and pericardium: Normal size heart with no pericardial effusion. Mediastinum and tia: No adenopathy identified on this unenhanced exam. Vessels: RIGHT subclavian Port-A-Cath. There is heavy calcification throughout the thoracic aorta and mild dilatation of the pulmonary artery. Chest wall and lower neck: No soft tissue masses. Upper abdomen: Prior cholecystectomy. Neither adrenal gland is very well visualized but no mass is id entified in the expected location. Osseous structures: Moderate increase in the thoracic kyphosis. There is osteopenia. Dorsal column st imulator in the mid thoracic region. Mild anterior wedging of T4. CT/CT chest wo con [id number] IMPRESSION: 1. Stable post treatment nodule in the RIGHT lower lobe continuing to measure 15 x 10 mm with no increase in size. 2. No adenopathy identified on this unenhanced examination. 3. Atherosclerotic changes within the thoracic aorta. 4. Prior cholecystectomy. 5. Chronic emphysema.
== END 2022-05-04 15:11 | disposition home or self-care (01) ==
LOC: RAD 15:12
PROVIDERS: PCP Internal Medicine; Visit Provider Radiology Radiation Oncology
DX: C34.90 Malignant neoplasm of unspecified part of unspecified bronchus or lung (principal); R91.1 Solitary pulmonary nodule; Z90.49 Acquired absence of other specified parts of digestive tract; J43.9 Emphysema, unspecified
CPT/HCPCS: 71250

== ENCOUNTER 2022-05-28 10:31 | Oncology outpatient (recurring) (ONCR) | payer MEDICAID, SELFPAY ==
--- NOTE | 2022-05-28 11:13 | ONCRAD EPV_ITS ---
Radiation Oncology Follow-Up Note Patient Name: Sakina Lombardi Date of : 1950 Date of Service: 05/28/2022 Attending Physician: Fortunato Salazar M.D. Sakina Lombardi returned to my office this morning for a routinely scheduled follow-up appointment. She completed stereotactic ablative body radiotherapy in May 2021 for the management of a clinical stage IA3 (T1cN0) lung cancer. CT angiography revealed a 1.4 cm x 1.4 cm x 2.3 cm pulmonary nodule in the right lower lobe of the lung. A PET CT confirmed hypermetabolic activity within the previously described right lower lobe lesion (SUV 12.8) without evidence of lymphadenopathy nor metastatic disease. A navigational bronchoscopy with endobronchial ultrasound-guided biopsy was performed on April 22, 2021. The right lower lobe mass biopsy specimen was suspicious for malignancy SABR was delivered between the dates of June 09, 2021 through June 11, 2021. A prescribed dose of 54 Gy was delivered in three fractions encompassing [address] of the thorax ordered on January 09, 2022 described no growth in the right lower lobe nodule. The nodule measured 1.8 cm x 1.2 cm. It previously measured 2.7 cm x 1.8 cm. Surveillance imaging completed on May 04, 2022 (independently reviewed in Synapse) reported no change in the size of the right lower-lobe nodule. It measured 1.5 cm x 1 cm. A 2 mm left apical lesion was described. This may have been present but not visualized on account of volume averaging and slice selection. On review of systems, she described a productive cough. On physical examination, she weighed 93 lbs. The temperature was 97.6???F and her blood pressure was 103/65 mmHg. The pulse was 74 bpm and her respiratory rate was 20 breaths per minute. Oxygen saturation while breathing 3L via nasal cannula was 95%. Bilateral wheezes were auscultated with anterior rales present. In summary, Ms. Lombardi returned for a routine post-SABR follow-up. Recent imaging demonstrated a partial response to treatment. I will prescribe the Z-Pack for her pulmonary symptoms. She will continue follow-up according to NCCN Guidelines. Signed by: Dr. Fortunato Salazar 05/28/2022 11:12:04 AM
== END 2022-05-28 23:59 | disposition home or self-care (01) ==
LOC: ONCMED 10:33
PROVIDERS: PCP Internal Medicine; Visit Provider Internal Medicine Medical Oncology
DX: C34.31 Malignant neoplasm of lower lobe, right bronchus or lung (principal)

== ENCOUNTER 2022-06-16 15:18 | Outpatient (CLI) | payer MEDICAID, SELFPAY ==
--- NOTE | 2022-06-16 | USCV_ITS ---
Sakina Lombardi Age: 72 Gender: F : 1950 Exam Date: 06/16/2022 16:26 Ordering Phys: Chante Salmon MD ([email or web address]) Technologist: Raphael Mitchell Exam Location: [facility] [place] Indication: chemo BP: / HR: 77 Rhythm: Sinus Technical Quality: Adequate MEASUREMENTS (Male / Female) Normal Values 2D ECHO LV Diastolic Diameter PLAX 2.7 cm 4.2 - 5.9 / 3.9 - 5.3 cm LV Systolic Diameter PLAX 2.4 cm IVS Diastolic Thickness 1.0 cm 0.6 - 1.0 / 0.6 - 0.9 cm IVS Systolic Thickness 0.9 cm LVPW Diastolic Thickness 1.4 cm 0.6 - 1.0 / 0.6 - 0.9 cm LVPW Systolic Thickness 1.3 cm LVOT Diameter 2.0 cm LV Ejection Fraction 2D Teich 26.5 % LV Ejection Fraction MOD 2C 60.9 % LV Ejection Fraction 2C AL 59.9 % LA Diameter 3.0 cm LA Width 3.1 cm LA Height 3.0 cm RA Width 2.8 cm RA Height 4.2 cm Aorta at Sinotubular Diameter 2.1 cm IVC Diameter 1.9 cm M-MODE Aortic Annulus Diameter 2.8 cm LA Ao Ratio MM 1.3 MV E Point Septal Separation 0.6 cm DOPPLER AV Peak Velocity 187.0 cm/s LVOT Peak Velocity 120.0 cm/s AV Area Cont Eq vti 1.8 cm squared AV Area Cont Eq pk 2.1 cm squared MV Peak Velocity 173.0 cm/s MV Area PHT 5.5 cm squared Mitral E to A Ratio 1.2 MV E' Velocity 51.5 cm/s Mitral E to MV E' Ratio 9.0 Mitral E to LV E' Lateral Ratio 8.2 Mitral E to LV E' Septal Ratio 10.1 TR Peak Velocity 422.0 cm/s TR Peak Gradient 71.2 mmHg TR Mean Velocity 279.7 cm/s TR Mean Gradient 33.3 mmHg TR Velocity Time Integral 118.0 cm TV Peak E Velocity 92.0 cm/s Right Atrial Pressure 8.0 mmHg Pulmonary Artery Systolic Pressu 79.2 mmHg RV Acceleration Time 0.1 s RV Ejection Time 0.4 s RV AcT/ET 0.3 FINDINGS Left Ventricle Normal left ventricular size and systolic function, EF 67 %. No regional wall motion abnormalities. Right Ventricle The right ventricle is normal in size and function. Right Atrium The right atrium is normal in size. Left Atrium The left atrium is normal in size. Mitral Valve Thickened mitral valve. Mild mitral valve regurgitation. Aortic Valve Thickened aortic valve. Mild to moderate aortic valve regurgitation. Tricuspid Valve Kdtxrasz-yc-wziqwr tricuspid valve regurgitation. Pulmonary artery peak systolic pressure was 79 mmHg with a mean pressure of 49 mmHg. Pulmonic Valve Trace pulmonary valve regurgitation. Pericardium Normal pericardium without effusion. Aorta Normal ascending aorta dimension. IVC Normal IVC dimension with <50% respiratory change of the inferior vena cava. CONCLUSIONS Normal left ventricular size and systolic function, EF 67 %. No regional wall motion abnormalities. Aeltasdc-pj-wgfyaf tricuspid valve regurgitation. Severe pulmonary hypertension with an estimated pulmonary artery peak systolic pressure of 79 mmHg with a mean pressure of 49 mmHg Thickened aortic valve. Mild to moderate aortic valve regurgitation. Thickened mitral valve. Mild mitral valve regurgitation. There is no pericardial effusion. There are no intracardiac masses. Compared to the study from 02/17/2019, there is worsening of the tricuspid regurgitation and development of severe pulmonary hypertension Dr Chante Salmon MD [facility] (Electronically Signed) Final Date: 19 June 2022 08:55 S
== END 2022-06-16 15:19 | disposition home or self-care (01) ==
PROVIDERS: PCP Internal Medicine; Visit Provider Internal Medicine Cardiovascular Disease
DX: J44.1 Chronic obstructive pulmonary disease with (acute) exacerbation (principal); C34.90 Malignant neoplasm of unspecified part of unspecified bronchus or lung; J96.11 Chronic respiratory failure with hypoxia; I08.3 Combined rheumatic disorders of mitral, aortic and tricuspid valves
CPT/HCPCS: 93306

== ENCOUNTER 2022-06-16 15:58 | Oncology outpatient (recurring) (ONCR) | payer MEDICAID, SELFPAY | END 2022-06-28 23:59 | disposition home or self-care (01) | LOC: ONCMED 15:58 | PROVIDERS: PCP Internal Medicine; Visit Provider Internal Medicine Medical Oncology | DX: Z45.2 Encounter for adjustment and management of vascular access device (principal) | CPT/HCPCS: 96523 ==

== ENCOUNTER → 2022-06-23 15:30 | Outpatient (BNVA) | payer MEDICAID, SELFPAY | PROVIDERS: PCP Internal Medicine; Visit Provider Internal Medicine Critical Care Medicine | DX: J44.9 Chronic obstructive pulmonary disease, unspecified (principal); J96.11 Chronic respiratory failure with hypoxia; C34.90 Malignant neoplasm of unspecified part of unspecified bronchus or lung; I27.81 Cor pulmonale (chronic); F17.210 Nicotine dependence, cigarettes, uncomplicated; Z99.81 Dependence on supplemental oxygen | CPT/HCPCS: 99214 ==

== ENCOUNTER → 2022-07-02 16:16 | Outpatient (BNVA) | payer MEDICAID, SELFPAY | PROVIDERS: PCP Internal Medicine; Visit Provider Internal Medicine Critical Care Medicine | DX: I27.81 Cor pulmonale (chronic) (principal) | CPT/HCPCS: 80048 ==

== ENCOUNTER 2022-07-20 15:12 | Oncology outpatient (recurring) (ONCR) | payer MEDICAID, SELFPAY ==
[2022-07-20 15:36] VITALS: BP 106/52; PULSE 61; RESP 18; TEMP 36.3; O2SAT 90
[2022-07-20 17:03] LABS: Blood Urea Nitrogen 7 mg/dL (8-23); Calcium 9.3 mg/dL (8.5-10.5); Carbon Dioxide 34 mmol/L (22-29); Chloride 95 mmol/L (98-107); Glucose 136 mg/dL (65-115); Osmolality Calculated 282 mOsm/kg (285-295); Sodium 136 mmol/L (136-145)
== END 2022-07-29 23:59 | disposition home or self-care (01) ==
PROVIDERS: Internal Medicine Critical Care Medicine; PCP Internal Medicine; Visit Provider Internal Medicine Medical Oncology
DX: Z45.2 Encounter for adjustment and management of vascular access device (principal); R06.02 Shortness of breath
CPT/HCPCS: 36591; 80048

== ENCOUNTER 2022-08-27 14:06 | Oncology outpatient (recurring) (ONCR) | payer MEDICAID, SELFPAY | END 2022-08-28 23:59 | disposition home or self-care (01) | PROVIDERS: PCP Internal Medicine; Visit Provider Internal Medicine Medical Oncology | DX: Z45.2 Encounter for adjustment and management of vascular access device (principal); I25.118 Atherosclerotic heart disease of native coronary artery with other forms of angina pectoris; I27.81 Cor pulmonale (chronic); J44.9 Chronic obstructive pulmonary disease, unspecified; F17.210 Nicotine dependence, cigarettes, uncomplicated; E78.5 Hyperlipidemia, unspecified; I10 Essential (primary) hypertension; I65.29 Occlusion and stenosis of unspecified carotid artery | CPT/HCPCS: 96523; 99214 ==

== ENCOUNTER → 2022-08-27 14:58 | Outpatient (BNVA) | payer MEDICAID, SELFPAY | PROVIDERS: PCP Internal Medicine; Visit Provider Internal Medicine Cardiovascular Disease | DX: I25.118 Atherosclerotic heart disease of native coronary artery with other forms of angina pectoris (principal); I27.81 Cor pulmonale (chronic); J44.9 Chronic obstructive pulmonary disease, unspecified; F17.210 Nicotine dependence, cigarettes, uncomplicated; Z99.81 Dependence on supplemental oxygen; E78.5 Hyperlipidemia, unspecified; I10 Essential (primary) hypertension; I65.23 Occlusion and stenosis of bilateral carotid arteries | CPT/HCPCS: 99214 ==

== ENCOUNTER 2022-09-23 16:35 | Oncology outpatient (recurring) (ONCR) | payer MEDICAID, SELFPAY | END 2022-09-28 23:59 | disposition home or self-care (01) | LOC: ONCMED 16:36 | PROVIDERS: PCP Internal Medicine; Visit Provider Internal Medicine Medical Oncology | DX: Z45.2 Encounter for adjustment and management of vascular access device (principal) | CPT/HCPCS: 96523 ==

== ENCOUNTER → 2022-10-06 18:19 | Outpatient (BNVA) | payer MEDICAID, SELFPAY | PROVIDERS: PCP Internal Medicine; Visit Provider Nurse Practitioner Family | DX: S69.91XA Unspecified injury of right wrist, hand and finger(s), initial encounter (principal); X58.XXXA Exposure to other specified factors, initial encounter; M19.031 Primary osteoarthritis, right wrist | CPT/HCPCS: 73110 ==

== ENCOUNTER 2022-10-12 14:22 | Outpatient (CLI) | payer MEDICAID, SELFPAY ==
--- NOTE | 2022-10-12 14:33 | MM_ITS ---
WS: [id number] BILATERAL 3D TOMOSYNTHESIS DIGITAL DIAGNOSTIC MAMMOGRAPHY WITH CAD CLINICAL INFORMATION: MASS HISTORY: RIGHT breast lump COMPARISON: 2020 TECHNIQUE: Bilateral CC, MLO, and ML views. FINDINGS: Scattered fibroglandular densities bilaterally. Punctate and lucent centered calcifications. Dystroph ic clustered calcifications bilaterally similar to previous. Palpable marker along the RIGHT axillary tail. Ultrasound described below. No new suspicious mammographic lesions. Biopsy marker LEFT breast. ULTRASOUND BREAST RIGHT TECHNIQUE: Ultrasound right breast focused area of concern. CLINICAL INFORMATION: MASS COMPARISON: None. FINDINGS: Ultrasound RIGHT breast area of concern along the RIGHT axillary tail. Normal underlying subcutaneous soft tissues. Prominent venous varicosities in this area likely correspond to the palpable abnormali ty. No suspicious lesions to target for biopsy. MM/[place] [id number] IMPRESSION: BI-RADS: 2-Benign FOLLOW UP: 1 Year Follow-up Recommend return to annual screening mammography.
== END 2022-10-12 14:23 | disposition home or self-care (01) ==
LOC: RAD 14:23
PROVIDERS: PCP Internal Medicine; Visit Provider Internal Medicine
DX: N63.31 Unspecified lump in axillary tail of the right breast (principal); R92.1 Mammographic calcification found on diagnostic imaging of breast
CPT/HCPCS: 76642; 77066

== ENCOUNTER 2022-10-26 14:04 | Oncology outpatient (recurring) (ONCR) | payer MEDICAID, SELFPAY | END 2022-10-28 23:59 | disposition home or self-care (01) | PROVIDERS: PCP Internal Medicine; Visit Provider Internal Medicine Medical Oncology | DX: Z45.2 Encounter for adjustment and management of vascular access device (principal) | CPT/HCPCS: 96523 ==

== ENCOUNTER → 2022-11-09 10:27 | Outpatient (BNVA) | payer MEDICAID, SELFPAY | PROVIDERS: PCP Internal Medicine; Visit Provider Internal Medicine Pulmonary Disease | DX: C34.31 Malignant neoplasm of lower lobe, right bronchus or lung (principal); F17.210 Nicotine dependence, cigarettes, uncomplicated; J96.11 Chronic respiratory failure with hypoxia; N63.10 Unspecified lump in the right breast, unspecified quadrant; J44.9 Chronic obstructive pulmonary disease, unspecified; I27.81 Cor pulmonale (chronic) | CPT/HCPCS: 99214 ==

== ENCOUNTER 2022-12-04 15:55 | Outpatient (CLI) | payer MEDICAID, SELFPAY ==
--- NOTE | 2022-12-04 16:00 | CTR_ITS ---
PROCEDURE INFORMATION: Exam: CT Chest Without Contrast; Diagnostic Exam date and time: 12/04/2022 4:12 PM Age: 72 years old Clinical indication: Prior radiation therapy - the patient has stage i lung cancer in the right lower lobe for which she has undergone radiation therapy. She completed stereotactic ablative body radiotherapy. In May 2021 for the management of a clinical stage ia3 (t1cn0) lung. Cancer. Shortness of breath; Additional info: Lung nodule follow up post sbrt. Lung cancer, undergoign radiation, lumps RT axilla and RT spine at radiation site TECHNIQUE: Imaging protocol: Diagnostic computed tomography of the chest without contrast. Radiation optimization: All CT scans at this facility use at least one of these dose optimization techniques: automated exposure control; mA and/or kV adjustment per patient size (includes targeted exams where dose is matched to clinical indication); or iterative reconstruction. COMPARISON: CT chest wo con [id number] 05/04/2022 3:53 PM RADIATION DOSE METRICS: Total DLP (mGy-cm): 211.85 FINDINGS: Tubes, catheters and devices: Right internal jugular Port-A-Cath is seen without change. Unchanged linear region of calcification is seen in the superior vena cava, which may represent sequela of prior catheter and calcified fibrin sheath. Trachea: The central airway appears unremarkable. Lungs: Unchanged hyperinflation of lungs with moderate to severe centrilobular emphysema. Unchanged appearance of the right lower lobe ovoid 1 x 1.5 cm nodule is seen with calcifications -post treatment related change (series 4, image 43). Unchanged minimal adjacent scarring is seen. New right lower lobe lateral basilar 1.8 x 3.2 cm region of patchy consolidation is seen (series 4, image 45). This may represent an area of atelectasis or scarring, although superimposed pneumonia process cannot be excluded. Slightly caudal 0.3 x 0.5 cm and 0.3 x 0.3 cm nodules are seen (series 4, image 49). Some minimal right basilar bronchovascular prominence is also seen. Follow-up may be performed with CT in 3 months. Pleural spaces: No pneumothorax. No pleural effusion. Heart: The heart size is normal. Unchanged ksvi-ht-yfaehqfy coronary arterial atherosclerotic vascular calcifications. No pericardial effusion. Lymph nodes: No enlarged lymph nodes visualized on non-contrast imaging. Vasculature: No thoracic aortic aneurysm. Unchanged moderate atherosclerotic vascular calcifications. Bones/joints: Unchanged kyphotic curvature of the thoracic spine. Unchanged medium-sized anterolateral osteophytes and degenerative changes are seen throughout the thoracic spine. Spinal stimulator lead is seen with associated artifact in the midthoracic region. Soft tissues: Unremarkable. Other findings: The previously noted left apical 0.2 x 0.2 cm nodule is not definitively visualized on the current CT. Status post prior cholecystectomy. CT/CT chest wo con [id number] IMPRESSION: 1. Unchanged appearance of the right lower lobe ovoid 1 x 1.5 cm nodule with calcifications (series 4, image 43). Unchanged minimal adjacent scarring. 2. New right lower lobe lateral basilar 1.8 x 3.2 cm region of patchy consolidation (series 4, image 45). This may represent an area of atelectasis or scarring, although superimposed pneumonia process cannot be excluded. Slightly caudal 0.3 x 0.5 cm and 0.3 x 0.3 cm nodules (series 4, image 49). Some minimal right basilar bronchovascular prominence also seen. Follow-up may be performed with CT in 3 months. 3. Other chronic findings, as noted above. COMMENTS: In the absence of a history or active diagnosis of lung cancer, it is recommended that this patient with emphysema be evaluated for enrollment in a low dose CT lung cancer screening program.
== END 2022-12-04 15:56 | disposition home or self-care (01) ==
LOC: RAD 15:56
PROVIDERS: PCP Internal Medicine; Visit Provider Internal Medicine Pulmonary Disease
DX: C34.90 Malignant neoplasm of unspecified part of unspecified bronchus or lung (principal); R91.8 Other nonspecific abnormal finding of lung field
CPT/HCPCS: 71250

== ENCOUNTER 2022-12-10 14:30 | Oncology outpatient (recurring) (ONCR) | payer MEDICAID, SELFPAY | END 2022-12-11 09:29 | disposition home or self-care (01) | PROVIDERS: PCP Internal Medicine; Visit Provider Internal Medicine | DX: Z45.2 Encounter for adjustment and management of vascular access device (principal); Z95.828 Presence of other vascular implants and grafts | CPT/HCPCS: 96523 ==

== ENCOUNTER 2023-01-14 15:05 | Oncology outpatient (recurring) (ONCR) | payer MEDICAID, SELFPAY ==
--- NOTE | 2023-01-14 15:53 | PC.NURSE ---
Patient was needing a primary physican with the [facility] physicans and providers handbook to make a decision.[email or web address]
== END 2023-01-26 23:59 | disposition home or self-care (01) ==
PROVIDERS: PCP Internal Medicine; Visit Provider Internal Medicine Medical Oncology
DX: Z45.2 Encounter for adjustment and management of vascular access device (principal); Z95.828 Presence of other vascular implants and grafts
CPT/HCPCS: 96523

== ENCOUNTER 2023-02-04 14:55 | Oncology outpatient (recurring) (ONCR) | payer MEDICAID, SELFPAY | END 2023-02-26 23:59 | disposition home or self-care (01) | LOC: ONCMED 14:56 | PROVIDERS: PCP Internal Medicine; Visit Provider Internal Medicine Medical Oncology | DX: Z45.2 Encounter for adjustment and management of vascular access device (principal) | CPT/HCPCS: 96523 ==

== ENCOUNTER → 2023-02-25 15:43 | Outpatient (BNVA) | payer MEDICAID, SELFPAY | PROVIDERS: PCP Internal Medicine; Visit Provider Internal Medicine Cardiovascular Disease | DX: I35.1 Nonrheumatic aortic (valve) insufficiency (principal); Z79.01 Long term (current) use of anticoagulants; R06.02 Shortness of breath; I27.81 Cor pulmonale (chronic); Z86.79 Personal history of other diseases of the circulatory system; I10 Essential (primary) hypertension; E78.5 Hyperlipidemia, unspecified; F17.210 Nicotine dependence, cigarettes, uncomplicated | CPT/HCPCS: 99214 ==

== ENCOUNTER 2023-03-01 13:28 | Oncology outpatient (recurring) (ONCR) | payer MEDICAID, SELFPAY ==
[2023-03-01 13:59] VITALS: BP 102/60; PULSE 67; RESP 18; TEMP 37.5
[2023-03-01 14:07] LABS: Basophils % 0.5 %; Eosinophils # 0.2 10^3/uL (0.0-0.8); Eosinophils % 2.9 %; Hematocrit 33.1 % (37.0-47.0); Hemoglobin 10.3 g/dL (11.5-15.3); Lymphocytes # 1.1 10^3/uL (0.8-4.8); Lymphocytes % 13.9 %; Mean Corpuscular HGB Conc 31.1 g/dL (30.0-36.0); Mean Corpuscular Hemoglobin 29.5 pg (28.0-34.0); Mean Corpuscular Volume 94.8 fl (81-99); Mean Platelet Volume 10.2 fL (7.4-10.4); Monocytes # 0.8 10^3/uL (0.2-0.9); Monocytes % 10.1 %; Neutrophils # 5.73 10^3/uL (1.8-7.7); Neutrophils % 72.2 %; Nucleated Red Blood Cells % 0 %; Platelet Count 151 10^3/cmm (130-400); Red Blood Count 3.49 10^6/uL (4.1-5.3); Red Cell Distribution Width 14.6 % (12.1-15.1); White Blood Count 7.9 10^3/uL (4.0-10.0)
[2023-03-01 14:41] LABS: Anion Gap 12.4 (5-19); Blood Urea Nitrogen 11 mg/dL (8-23); Calcium 9.4 mg/dL (8.5-10.5); Carbon Dioxide 35 mmol/L (22-29); Chloride 94 mmol/L (98-107); Glucose 171 mg/dL (65-115); NT Pro B Type Natriuretic Pept 777 pg/mL (0-125); Osmolality Calculated 289 mOsm/kg (285-295); Potassium 3.4 mmol/L (3.5-5.1); Sodium 138 mmol/L (136-145)
--- NOTE | 2023-03-01 15:52 | XRR_ITS ---
PROCEDURE INFORMATION: Exam: XR Right Hip Exam date and time: 03/01/2023 4:25 PM Age: 72 years old Clinical indication: Injury or trauma; Fall; Blunt trauma (contusions or hematomas); Right; Injury date: 02/28/2023; Prior surgery; Surgery type: RT hip; Patient HX: HX of lung cancer; Additional info: Sustained fall on right side TECHNIQUE: Imaging protocol: Radiologic exam of the right hip. Views: 1 view hip with pelvis when performed. Total images: 3 COMPARISON: CT chest abdpel w/*[id number] 01/09/2022 3:10 PM FINDINGS: Bones/joints: Right femoral neck screw and intramedullary denise unchanged from prior exam. No evidence of hardware failure. No acute fracture nor subluxation. No osseous erosion nor periosteal reaction. Soft tissues: Unremarkable. Vasculature: Moderate atherosclerotic disease is evident. XR/XR hip RT 2-3V wo/w pel* [id number] IMPRESSION: 1. Right femoral neck screw and intramedullary denise unchanged from prior exam. No evidence of hardware failure. 2. No acute osseous pathology.
--- NOTE | 2023-03-01 15:52 | XRR_ITS ---
PROCEDURE INFORMATION: Exam: XR Ribs Exam date and time: 03/01/2023 4:25 PM Age: 72 years old Clinical indication: Injury or trauma; Fall; Rib area; Blunt trauma (contusions or hematomas); Injury date: 02/28/2023; Prior surgery; Surgery type: Port; Patient HX: HX of lung cancer; Additional info: Sustained fall on right side TECHNIQUE: Imaging protocol: Radiologic exam of the of the ribs. Views: 3 views. Bilateral ribs. Total images: 1 COMPARISON: CT chest con [id number] 12/04/2022 4:12 PM FINDINGS: Tubes, catheters and devices: A right infusion port is present. Bones/joints: Diffuse osteopenia noted. Old right rib fractures are evident. No acute fracture nor subluxation. No osseous erosion nor periosteal reaction. Lungs: Trace atelectasis or scar noted in the right lung base. Organs: Surgical clips are present in the right upper quadrant which are suggestive of prior cholecystectomy. Soft tissues: Normal. Other findings: Intraspinal nerve stimulator electrodes noted. XR/XR ribs BI 3V* [id number] IMPRESSION: 1. Trace atelectasis or scar noted in the right lung base. 2. Old right rib fractures are evident. 3. No acute osseous pathology.
== END 2023-03-28 23:59 | disposition home or self-care (01) ==
LOC: ONCMED 13:29
PROVIDERS: Internal Medicine Cardiovascular Disease; PCP Internal Medicine; Visit Provider Internal Medicine Medical Oncology
DX: C34.31 Malignant neoplasm of lower lobe, right bronchus or lung; J98.11 Atelectasis; W19.XXXA Unspecified fall, initial encounter; Z79.01 Long term (current) use of anticoagulants; J44.9 Chronic obstructive pulmonary disease, unspecified; J96.11 Chronic respiratory failure with hypoxia; Z99.81 Dependence on supplemental oxygen; I35.1 Nonrheumatic aortic (valve) insufficiency; R60.0 Localized edema; R42 Dizziness and giddiness; F17.210 Nicotine dependence, cigarettes, uncomplicated
CPT/HCPCS: 36591; 71110; 73502; 80048; 83880; 85025; 99214

== ENCOUNTER 2023-03-05 15:18 | Outpatient (CLI) | payer MEDICAID, SELFPAY ==
--- NOTE | 2023-03-05 15:30 | CT_ITS ---
WS: [id number] CT chest wo con [id number] HISTORY: 3 month f/u lung nodules, history of lung cancer. TECHNIQUE: Axial imaging performed through the thorax. Coronal and sagittal reformats are submitted. All CT scans at [facility] use at least one of these dose optimization techniques: automated exposure control; mA and/or kV adjustment per patient size (includes targeted exams where dose is mat ched to clinical indication); or iterative reconstruction. CONTRAST: None DLP: 190.16 mGy.cm COMPARISON: 12/04/2022, 05/04/2022 Lungs and central airway: Severe chronic emphysema. Known treated neoplasm in the RIGHT lower lobe me asures 9 x 14 mm and is unchanged in size and does appear partially calcified canal. Progression of n odularity and linear opacifications in the RIGHT lower lobe since the prior studies. The slightly spi culated nodule measuring 7 mm in the RIGHT lower lobe. Adjacent tubular opacifications in the RIGHT l ower lobe. No additional suspicious findings. Pleura: Normal. No pleural effusion. Heart and pericardium: Normal size heart with no pericardial effusion. Mediastinum and tia: No mediastinum or hilar adenopathy. Vessels: Severe atherosclerosis aorta. Heavy calcification extends into the great vessels and both ca rotid arteries. Mildly prominent pulmonary artery. Suprarenal aortic calcifications. Chest wall and lower neck: Right-sided Mediport. Upper abdomen: Cholecystectomy. Osseous structures: Increase in thoracic kyphosis. Dorsal column stimulator electrodes over the mid t horacic region. CT/CT chest wo con [id number] IMPRESSION: 1. Stable post treatment RIGHT lower lobe pulmonary nodules measuring 9 x 14 m m. Nodule appears partially calcified. 2. New opacifications in the RIGHT lower lobe. One of these new opacifications is slightly spiculated measuring 7 mm. There are adjacent tubular opacificatio ns which may be bronchial in etiology. Differential includes tumor extension, f luid, fungal infection or post treatment bronchiectasis. 3. Severe atherosclerosis in the arteries of the chest and upper abdomen.
== END 2023-03-05 15:19 | disposition home or self-care (01) ==
PROVIDERS: PCP Internal Medicine; Visit Provider Internal Medicine Pulmonary Disease
DX: R91.8 Other nonspecific abnormal finding of lung field (principal)
CPT/HCPCS: 71250

== ENCOUNTER → 2023-03-24 15:00 | Outpatient (BNVA) | payer MEDICAID, SELFPAY | PROVIDERS: PCP Internal Medicine; Visit Provider Otolaryngology | DX: H81.10 Benign paroxysmal vertigo, unspecified ear (principal); R49.0 Dysphonia; C34.90 Malignant neoplasm of unspecified part of unspecified bronchus or lung; F17.210 Nicotine dependence, cigarettes, uncomplicated | CPT/HCPCS: 99203 ==

== ENCOUNTER 2023-03-29 12:41 | Outpatient (CLI) | payer MEDICAID, SELFPAY ==
--- NOTE | 2023-03-29 12:15 | USCV_ITS ---
Maria C Sakina Age: 72 Gender: F : 1950 Exam Date: 03/29/2023 12:58 Ordering Phys: Jose Briseno MD Technologist: Exam Location: [facility] [place] Indication: cca stenosis Risk Factors: Previous Vascular Surgery: Right Brachial BP: / Left Brachial BP: / Right Left Velocity (cm/s) Spectral Plaque Velocity (cm/s) Spectral Plaque Syst/Diast Broadening Syst/Diast Broadening 82.70/ 12.10 Prox CCA 71.70 / 14.30 92.60/ 16.50 Mid CCA 80.50 / 13.20 94.80/ 18.70 Hetro Distal CCA 83.80 / 12.10 Hetro 72.80/ 15.40 Hetro Prox ICA 84.90 / 15.40 Trevin 82.70/ 12.10 Hetro Mid ICA 106.90/ 20.90 Hetro 79.40/ 14.30 Distal ICA 110.30/ 25.40 125.70 ECA 141.10 0.87 ICA/CCA 1.32 Antegrade Vertebral Not Visualized 89.30/ 19.80 cm/s 68.40/ 14.30 cm/s Bi Subclavian Bi 123.0 149.9 0 0 FINDINGS Comparison:. 11/03/21 Diffuse bilateral scattered calcified plaque and intimal thickening throughout the common carotid arteries and extending through the bifurcation. Mild turbulence carotid arteries. Antegrade vertebral arteries. CONCLUSIONS Bilateral ICA stenosis less than 50%. Moderate diffuse atherosclerotic plaque. Dr. Allie Pascual DO (Electronically Signed) Final Date: 29 Mar 2023 16:27 S
== END 2023-03-29 12:42 | disposition home or self-care (01) ==
LOC: RAD 12:43
PROVIDERS: PCP Family Medicine; Visit Provider Internal Medicine Pulmonary Disease
DX: I65.23 Occlusion and stenosis of bilateral carotid arteries (principal)
CPT/HCPCS: 93880

== ENCOUNTER 2023-03-29 15:22 | Oncology outpatient (recurring) (ONCR) | payer MEDICAID, SELFPAY ==
[2023-03-29 16:12] VITALS: BP 128/60; PULSE 78; RESP 18; TEMP 36.8; O2SAT 99
== END 2023-04-28 23:59 | disposition home or self-care (01) ==
LOC: ONCMED 15:23
PROVIDERS: PCP Family Medicine; Visit Provider Internal Medicine Medical Oncology
DX: C34.31 Malignant neoplasm of lower lobe, right bronchus or lung (principal); R06.02 Shortness of breath; J98.11 Atelectasis; W19.XXXA Unspecified fall, initial encounter; Z79.01 Long term (current) use of anticoagulants; J44.9 Chronic obstructive pulmonary disease, unspecified; J96.11 Chronic respiratory failure with hypoxia; Z99.81 Dependence on supplemental oxygen; I35.1 Nonrheumatic aortic (valve) insufficiency; R60.0 Localized edema; R42 Dizziness and giddiness; F17.210 Nicotine dependence, cigarettes, uncomplicated
CPT/HCPCS: 80053; 80061; 82652; 83540; 83735; 84439; 84443; 85025; 96523; J1642

== ENCOUNTER 2023-04-29 15:37 | Oncology outpatient (recurring) (ONCR) | payer MEDICAID, SELFPAY ==
[2023-04-29 16:29] VITALS: BP 123/87; PULSE 57; RESP 16; TEMP 37.7; O2SAT 99
== END 2023-05-28 23:59 | disposition home or self-care (01) ==
PROVIDERS: PCP Family Medicine; Visit Provider Internal Medicine Medical Oncology
DX: Z45.2 Encounter for adjustment and management of vascular access device (principal)
CPT/HCPCS: J1642

== ENCOUNTER → 2023-05-06 16:48 | Outpatient (BNVA) | payer MEDICAID, SELFPAY | PROVIDERS: PCP Family Medicine; Visit Provider Family Medicine | DX: R55 Syncope and collapse (principal); R56.9 Unspecified convulsions; E55.9 Vitamin D deficiency, unspecified; J31.0 Chronic rhinitis; J32.9 Chronic sinusitis, unspecified | CPT/HCPCS: 80048; 83735; 84439; 84443; 84481 ==

== ENCOUNTER 2023-05-07 14:22 | Outpatient (CLI) | payer MEDICAID, SELFPAY ==
--- NOTE | 2023-05-07 14:30 | CT_ITS ---
WS: [id number] CT HEAD TECHNIQUE: Noncontrast CT of the head obtained from the skullbase to the vertex. Contrast not adminis tered. IV access could not be established. CLINICAL INFORMATION: R55 - Syncope and collapse COMPARISON: CT 04/2020 DLP: 894.[address] scans at [facility] use at least one of these dose optimization techniques: automated e xposure control; mA and/or kV adjustment per patient size (includes targeted exams where dose is matc hed to clinical indication); or iterative reconstruction. FINDINGS: No evidence of intracranial hemorrhage or mass effect. Ventricular system and basal cisterns are neff nt. Moderate small vessel changes with mild parenchymal volume loss. No extra-axial fluid collections . No evidence of mass or mass effect. Chronic lacunar infarct LEFT cerebellum. Intracranial vascular calcification. Paranasal sinuses and mastoid air cells are well aerated. .Normal visualized soft tissues. CT/CT head wo con* [id number] IMPRESSION: Contrast not administered, inability to obtain IV access. 1. No evidence of intracranial hemorrhage or mass effect. 2. Moderate small vessel changes with mild parenchymal volume loss. 3. Chronic lacunar infarct LEFT cerebellum. Intracranial vascular calcificatio n. 4. No acute intracranial findings.
== END 2023-05-07 14:23 | disposition home or self-care (01) ==
LOC: RAD 14:23
PROVIDERS: PCP Family Medicine; Visit Provider Family Medicine
DX: R55 Syncope and collapse (principal); R56.9 Unspecified convulsions
CPT/HCPCS: 70450

== ENCOUNTER 2023-05-20 18:16 | Inpatient (IN) | payer MEDICAID, SELFPAY ==
[2023-05-20 18:17] VITALS: BP 129/45; PULSE 40; RESP 18; TEMP 36.8; O2SAT 94; BMI 16.0
--- NOTE | 2023-05-20 18:23 | ECG_ITS ---
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 Measurements Intervals [place] Rate: 55 P: 0 [place]: 0 QRS: 77 QRSD: 94 T: 61 QT: 461 QTc: 442 Interpretive Statements SINUS RHYTHM WITH SINUS ARRHYTHMIA Compared to ECG 08/06/2021 22:18:20 Sinus rhythm no longer present Electronically Signed On 05-21-2023 8:44:48 CDT by Tai Ramirez M.D. [email or web address]
--- NOTE | 2023-05-20 18:25 | XRR_ITS ---
PROCEDURE INFORMATION: Exam: XR Chest Exam date and time: 05/20/2023 6:44 PM Age: 73 years old Clinical indication: Other: Syncope; Prior surgery; Surgery date: 6+ months; Surgery type: Port TECHNIQUE: Imaging protocol: Radiologic exam of the chest. Views: 1 view. COMPARISON: CT chest con [id number] 03/05/2023 3:45 PM FINDINGS: Tubes, catheters and devices: Right subclavian [id number] with tip in the right atrium. Stimulator lead in the midthoracic spine canal. Lungs: Emphysema. Linear atelectasis or scar in the right lung base. The lungs are otherwise clear. Pleural spaces: Unremarkable. No pleural effusion. No pneumothorax. Heart/Mediastinum: Unremarkable. No cardiomegaly. Bones/joints: Unremarkable. XR/XR chest 1V portable [id number] IMPRESSION: No acute findings.
[2023-05-20 18:31] VITALS: BP 134/64; PULSE 64; RESP 12; O2SAT 100
--- NOTE | 2023-05-20 18:43 | W.ED.SYNCOPE ---
HPI - Syncope General: Chief Complaint: Syncope Stated Complaint: COPD Time Seen by Provider: 05/20/23 18:17 Source: patient and EMS Mode of arrival: EMS Limitations: no limitations History of Present Illness: 73-year-old female states the last month she had multiple episodes of syncope she states today she has been feeling much more lightheaded than typical and feels like she is going to pass out. EMS her heart rate has been ranging from the 40s to the 70s she does have a heart rate here in the 40s at times and does have a sinus pause here wants. She denies any chest pain denies any headache denies any shortness of breath. She does have a history of COPD and is on oxygen. Associated symptoms: Deny abdominal pain, chest pain, fever(s), headache(s) or nausea Review of Systems Const: Denies: fever(s), chills, body aches or change in appetite Eyes: Denies: eye discomfort ENMT: Denies: throat pain or dental pain Card: Reports: syncope; Denies: chest pain Resp: Denies: dyspnea GI: Denies: abdominal pain, nausea, vomiting or diarrhea : Denies: dysuria Musc: Denies: neck pain or back pain Skin/Breast: Denies: rash Neuro: Denies: headache(s) PFSH ED PFSH: Medical History Atypical chest pain Patient had a cardiac catheterization in 2009 and was found to have no significant coronary disease. Atypical chest pain Benign essential hypertension CAD (coronary artery disease) CVA (cerebral vascular accident) Dyslipidemia (high LDL; low HDL) History of COPD Hx of carotid stenosis SOB (shortness of breath) Thyroid cancer Surgical History H/O thyroidectomy History of ankle surgery History of back surgery History of bilateral carpal tunnel release History of bronchoscopy History of hip surgery History of lumpectomy History of rectal surgery Hx of hysterectomy Port-A-Cath in place S/P hardware removal Spine Family History Brother Leukemia Diabetes Lung disease Mother Anesthesia complication CAD (coronary artery disease) Father Bleeding disorder Clotting disorder CAD (coronary artery disease) Cancer Stroke Sister CAD (coronary artery disease) Chronic kidney disease (CKD) Lung disease Family/Other Diabetes Stroke Grandfather Suicide Denies family history of Dementia Social History Smoking and tobacco status: current every day smoker (0.5 ppd) cigarettes Packs smoked per day: 0.5 Years cigarettes smoked: 55 [ Other cigarette details: Hx of 2 PPD x 50 Years, started at age 12] Quit status (tobacco): considering quitting Second hand smoke exposure: Yes Smoking risk assessment/counseling performed?: Yes Alcohol intake: never Desire information about alcohol rehabilitation?: No Counseling given: No Substance/Drug Use: never Desire information about substance/drug rehabilitation?: No Counseling given: No Adopted: No Lives independently: Yes Household members: none Housing: Apartment Marital status: / Current occupational status: disabled Do you think of yourself as: Straight/Heterosexual Current gender identity: Female Physical Exam Const: COMMON NORMALS: no acute distress, patient oriented x3 and healthy appearing HENMT: COMMON NORMALS: normocephalic and atraumatic HEAD & SCALP: normocephalic and atraumatic Eye: COMMON NORMALS: Equal, round and reactive pupils present and EOMs intact bilaterally PUPIL: Yes Equal, round and reactive pupils present Neck/C-Spine: COMMON NORMALS: full ROM and supple Chest: COMMONS NORMALS: normal inspection of the chest and normal palpation of entire chest wall Resp: COMMON NORMALS: normal respiratory effort, No retractions, No use of accessory muscles and clear to auscultation bilaterally AUSCULTATION: clear to auscultation bilaterally Cardio: COMMON NORMALS: regular rhythm and No murmurs present (Cardio) RATE: bradycardic RHYTHM: regular rhythm GI: COMMON NORMALS: Normal to inspection, nondistended, normoactive bowel sounds present, Soft to palpation, non-tender and no masses PALPATION: Yes Soft to palpation Extremity: COMMON NORMALS: normal to inspection and full ROM Neuro: COMMON NORMALS: patient oriented x3, moves all extremities and no focal motor deficits Psych: COMMON NORMALS: mental status grossly normal, Normal thought process present and cooperative THOUGHT PROCESS: Normal thought process present Skin: COMMON NORMALS: no rashes or lesions noted and no wounds GENERAL SKIN EXAM: no rashes or lesions noted Course Vital Signs: Vital signs: Vital Signs Temperature 98.3 F 05/20/23 18:17 Pulse Rate 64 05/20/23 19:31 Respiratory Rate 12 05/20/23 18:31 Blood Pressure 133/59 05/20/23 19:31 Pulse Oximetry 100 05/20/23 19:31 Oxygen Delivery Me thod Nasal Cannula 05/20/23 19:31 Oxygen Flow Rate 2 05/20/23 19:31 MDM - Syncope Medical Decision Making Patient presents with syncopal event and first arrived she been bradycardic having some sinus pauses. Heart rates now in the 70s she has been pain-free believe she may be having some arrhythmias causing the syncopal events spoke to the hospitalist on the meringuer will admit at this time. Medical Records I reviewed the patient's medical records. Lab Data I reviewed the patient's lab results. 05/20/23 19:28 05/20/23 19:28 Radiology Impressions Chest X-Ray 05/20/23 18:25 IMPRESSION: No acute findings. Laboratory Results WBC 7.7 10^3/uL (4.0-10.0) 05/20/23 19:28 RBC 3.71 10^6/uL (4.1-5.3) L 05/20/23 19:28 Hgb 10.7 g/dL (11.5-15.3) L 05/20/23 19: Hct 35.2 % (37.0-47.0) L 05/20/23 19:28 MCV 94.9 fl (81-99) 05/20/23 19: MCH 28.8 pg (28.0-34.0) 05/20/23 19: MCHC 30.4 g/dL (30.0-36.0) 05/20/23 19:28 RDW 14.1 % (12.1-15.1) 05/20/23 19: Plt Count 160 10^3/cmm (130-400) 05/20/23 19: MPV 9.7 fL (7.4-10.4) 05/20/23 19:28 Neut % (Auto) 75.3 % 05/20/23 19: Lymph % (Auto) 13.4 % 05/20/23 19:28 Mcpherson % (Auto) 7.5 % 05/20/23 19:28 Eos % (Auto) 3.0 % 05/20/23 19:28 Baso % (Auto) 0.5 % 05/20/23 19:28 Neut # (Auto) 5.79 10^3/uL (1.8-7.7) 05/20/23 19:28 Lymph # (Auto) 1.0 10^3/uL (0.8-4.8) 05/20/23 19:28 Mcpherson # (Auto) 0.6 10^3/uL (0.2-0.9) 05/20/23 19:28 Eos # (Auto) 0.2 10^3/uL (0.0-0.8) 05/20/23 19: Baso # (Auto) 0.0 10^3/uL (0.0-0.1) 05/20/23 19: Nucleated RBC % (auto) 0 % 05/20/23 19: Nucleated RBCs # 0.0 /100WBC 05/20/23 19: PT 14.70 SECONDS (12.1-14.9) 05/20/23 19: INR 1.11 (0.8-1.2) 05/20/23 19: Sodium 141 mmol/L (136-145) 05/20/23 19: Potassium 4.1 mmol/L (3.5-5.1) 05/20/23 19: Chloride 100 mmol/L (98-107) 05/20/23: Carbon Dioxide 32 mmol/L (22-29) H 05/20/23: Anion Gap 13.1 (5-19) 05/20/23 19:28 BUN 12 mg/dL (8-23) 05/20/23 19:28 Creatinine 0.8 mg/dL (0.5-0.9) 05/20/23 19: GFR Calculation Not Reportable 05/20/23 19: Glucose 95 mg/dL (65-115) 05/20/23: Calculated Osmolality 292 mOsm/kg (285-295) 05/20/23: Calcium 8.7 mg/dL (8.5-10.5) 05/20/23 19: Total Bilirubin 0.3 mg/dL (0.15-1.2) 05/20/23 19:28 AST 20 U/L (0-32) 05/20/23 19:28 ALT 9 U/L (0-33) 05/20/23 19:28 Alkaline Phosphatase 113 U/L (35-105) H 05/20/23 19:28 Troponin T Baseline 14 ng/L (0-10) H 05/20/23 19:28 NT-Pro-B Natriuret Pep 630 pg/mL (0-125) H 05/20/23 19:28 Total Protein 6.6 g/dL (6.6-8.7) 05/20/23 19:28 Albumin 3.8 g/dL (3.5-5.2) 05/20/23 19:28 Globulin 2.8 g/dL (1.3-4.6) 05/20/23 19:28 EKG Data EKG 1: I personally reviewed and interpreted this EKG as follows: EKG interpretation date: 05/20/23 EKG interpretation time: 18:23 Interpretation: bradycardia hr [address] or t wave abnormalities qrs 94 qtc 449 Discharge Plan Discharge Patient Disposition: Admitted As Inpatient Clinical Impression: Syncopal episodes, Bradycardia Condition: Stable Prescriptions: No Action heparin lock flush (porcine) 10 unit/mL solution 10 unit IV ONCE Qty: 1 0RF heparin, porcine (PF) 100 unit/mL (1 mL) solution 100 unit IV ONCE Qty: 1 0RF duloxetine [Cymbalta] 20 mg capsule,delayed release(DR/EC) 20 mg PO BID Prednisone Intensol 5 mg/mL concentrate 10 mg PO DAILY 15 Days Qty: 30 0RF magnesium 30 mg tablet 30 mg PO DAILY Qty: 90 6RF montelukast 4 mg granules in packet 4 mg PO BID Qty: 60 5RF budesonide 0.5 mg/2 mL suspension for nebulization 0.5 mg inhalation BID Qty: 120 11RF Daliresp 500 mcg tablet 500 mcg PO DAILY Qty: 90 3RF tizanidine 4 mg tablet 4 mg PO TID PRN (Reason: Muscle Spasticity) Qty: 90 1RF levothyroxine 75 mcg capsule 75 mcg PO DAILY Qty: 30 3RF (DME) oxygen See Rx Instructions .Route .MEDSUPPLY Qty: 1 0RF Rx Instructions: HOME FILL SYSTEM- CONTINOUS FLOW cetirizine 10 mg tablet 10 mg PO DAILY Qty: 90 3RF calcitriol [Rocaltrol] 0.5 mcg capsule 0.5 mcg PO DAILY Qty: 90 3RF metoprolol tartrate 25 mg tablet See Rx Instructions .ROUTE .COMPLEX Qty: 180 3RF Dose Instruction: TAKE ONE TABLET BY MOUTH TWICE DAILY Rx Instructions: TAKE ONE TABLET BY MOUTH TWICE DAILY atorvastatin 40 mg tablet 40 mg PO DAILY Qty: 90 3RF revefenacin 175 mcg/3 mL solution for nebulization 175 mcg inhalation DAILY Qty: 90 11RF formoterol fumarate 20 mcg/2 mL solution for nebulization 2 ml inhalation BID Qty: 120 11RF ipratropium-albuterol 0.5 mg-3 mg(2.5 mg base)/3 mL solution for nebulization 3 ml inhalation Q6H PRN (Reason: wheezing) Qty: 90 3RF potassium chloride 20 mEq/15 mL liquid 8 meq PO DAILY PRN (Reason: hypokalemia) Qty: 1800 3RF nitroglycerin 0.4 mg tablet, sublingual See Rx Instructions .ROUTE .COMPLEX Qty: 50 3RF Dose Instruction: DISSOLVE 1 TABLET UNDER THE TONGUE EVERY 5 MINUTES NEEDED FOR CHEST PAIN. DO NOT EXCEED A TOTAL OF 3 DOSES IN 15 MINUTES Rx Instructions: DISSOLVE 1 TABLET UNDER THE TONGUE EVERY 5 MINUTES NEEDED FOR CHEST PAIN. DO NOT EXCEED A TOTAL OF 3 DOSES IN 15 MINUTES (DME) 2 inch toilet seat See Rx Instructions .Route .MEDSUPPLY Qty: 1 0RF Rx Instructions: Please issue 2 inch, soft toilet seat. albuterol sulfate [Ventolin HFA] 90 mcg/actuation HFA aerosol inhaler See Rx Instructions .ROUTE .COMPLEX Qty: 18 3RF Dose Instruction: inhale TWO puffs into lungs EVERY 4 HOURS NEEDED FOR SHORTNESS OF BREATH OR wheezing Rx Instructions: inhale TWO puffs into lungs EVERY 4 HOURS NEEDED FOR SHORTNESS OF BREATH OR wheezing bumetanide 0.5 mg tablet 0.5 mg PO DAILY Qty: 30 5RF polyethylene glycol 3350 [Miralax] 17 gram/dose Powder 17 g PO DAILY PRN (Reason: Constipation) buprenorphine-naloxone [Suboxone] 8-2 mg Film 1 film SUBLINGUAL Q8H Hold Instructions: Resume on 05/28/20. May reinstitute in the next 7 days, but do not use with [place] and tramadol diphenhydramine HCl [Benadryl] 25 mg Capsule 25 mg PO BID MDD SEE PHARAMCY COMMENT PRN (Reason: Allergy Symptoms) Referrals: Fei Laura DO [Primary Care Provider] - Coding Level of Care Code ED Polysomnographic Tech for [facility]
[2023-05-20 19:31] VITALS: BP 133/59; PULSE 64; O2SAT 100
[2023-05-20 19:36] LABS: Basophils % 0.5 %; Eosinophils # 0.2 10^3/uL (0.0-0.8); Hematocrit 35.2 % (37.0-47.0); Hemoglobin 10.7 g/dL (11.5-15.3); Lymphocytes % 13.4 %; Mean Corpuscular HGB Conc 30.4 g/dL (30.0-36.0); Mean Corpuscular Hemoglobin 28.8 pg (28.0-34.0); Mean Corpuscular Volume 94.9 fl (81-99); Mean Platelet Volume 9.7 fL (7.4-10.4); Monocytes # 0.6 10^3/uL (0.2-0.9); Monocytes % 7.5 %; Neutrophils # 5.79 10^3/uL (1.8-7.7); Neutrophils % 75.3 %; Nucleated Red Blood Cells % 0 %; Platelet Count 160 10^3/cmm (130-400); Red Blood Count 3.71 10^6/uL (4.1-5.3); Red Cell Distribution Width 14.1 % (12.1-15.1); White Blood Count 7.7 10^3/uL (4.0-10.0)
[2023-05-20 19:47] LABS: INR 1.11 (0.8-1.2)
[2023-05-20 19:56] LABS: Troponin(5th) Baseline 14 ng/L (0-10)
[2023-05-20 20:15] LABS: Alanine Aminotransferase 9 U/L (0-33); Albumin Level 3.8 g/dL (3.5-5.2); Alkaline Phosphatase 113 U/L (35-105); Anion Gap 13.1 (5-19); Aspartate Amino Transferase 20 U/L (0-32); Blood Urea Nitrogen 12 mg/dL (8-23); Calcium 8.7 mg/dL (8.5-10.5); Carbon Dioxide 32 mmol/L (22-29); Chloride 100 mmol/L (98-107); Creatinine Clr Calc Pharmacy 36.2264; Globulin 2.8 g/dL (1.3-4.6); Glucose 95 mg/dL (65-115); NT Pro B Type Natriuretic Pept 630 pg/mL (0-125); Osmolality Calculated 292 mOsm/kg (285-295); Potassium 4.1 mmol/L (3.5-5.1); Sodium 141 mmol/L (136-145); Total Bilirubin 0.3 mg/dL (0.15-1.2); Total Protein 6.6 g/dL (6.6-8.7)
--- NOTE | 2023-05-20 20:27 | P.HP_ITS ---
Providers/Chief Complaint Primary Care Provider: Fei Laura DO Chief Complaint: COPD History of Present Illness Sakina Lombardi is a 73 year old female with history of lung cancer, finished radiotherapy, has Mediport, takes metoprolol, came in for recurrent syncopal events. Patient has severe pulm hypertension, preserved ejection fraction, takes Bumex, Suboxone for back pain, patient is stating that she has been having recurrent falls secondary to syncope she never experienced any shortness of breath nausea vomiting or febrile events but endorsing chest heaviness. Review of Systems Const: Denies: fever(s) Eyes: Denies: change in vision ENMT: Denies: throat pain Card: Reports: chest pain, dyspnea on exertion and orthopnea Resp: Denies: dyspnea GI: Denies: abdominal pain : Denies: flank pain Musc: Denies: neck pain Skin/Breast: Denies: rash Neuro: Denies: headache(s) Psych: Reports: anxiety Endo: Denies: polyuria Medications/Allergies Home Medications Medication Instructions Recorded Confirmed Last Taken Type buprenorphine 8 mg-naloxone 2 mg 1 film sublingual Q8H 12/04/19 05/12/23 08/06/21 History sublingual film (Suboxone) polyethylene glycol 3350 17 17 g PO DAILY PRN Constipation 12/04/19 05/12/23 06/30/21 History gram/dose oral powder (Miralax) oxygen #1 ea 04/08/21 05/12/23 04/21/21 Rx diphenhydramine HCl 25 mg capsule 25 mg PO BID PRN Allergy Symptoms 04/18/21 05/12/23 08/06/21 History (Benadryl) cetirizine 10 mg tablet 10 mg PO DAILY #90 tabs 01/12/22 05/12/23 Unknown Rx calcitriol 0.5 mcg capsule 0.5 mcg PO DAILY #90 caps 05/25/22 05/12/23 Unknown Rx (Rocaltrol) metoprolol tartrate 25 mg tablet See Rx Instructions .Route 01/19/23 05/12/23 Unknown Rx .COMPLEX #180 tabs atorvastatin 40 mg tablet 40 mg PO DAILY #90 tabs 02/16/23 05/12/23 Unknown Rx duloxetine 20 mg capsule,delayed 20 mg PO BID 02/25/23 05/12/23 Unknown History release (Cymbalta) budesonide 0.5 mg/2 mL suspension 0.5 mg (2 mL) inhalation BID #120 03/02/23 05/12/23 Unknown Rx for nebulization mL formoterol fumarate 20 mcg/2 mL 2 ml inhalation BID #120 mL 03/02/23 05/12/23 Unknown Rx solution for nebulization ipratropium 0.5 mg-albuterol 3 mg 3 ml inhalation Q6H PRN wheezing 03/02/23 05/12/23 Unknown Rx (2.5 mg base)/3 mL nebulization #90 mL soln revefenacin 175 mcg/3 mL solution 175 mcg (3 mL) inhalation DAILY 03/02/23 05/12/23 Unknown Rx for nebulization #90 mL potassium chloride 20 mEq/15 mL 8 meq (6 mL) PO DAILY PRN 03/11/23 05/12/23 Unknown Rx oral liquid hypokalemia #1,800 mL magnesium 30 mg tablet 30 mg PO DAILY #90 tabs 04/01/23 05/12/23 Unknown Rx prednisone 5 mg/mL oral 10 mg (2 mL) PO DAILY 15 days #30 04/01/23 05/12/23 Unknown Rx concentrate (Prednisone Intensol) mL nitroglycerin 0.4 mg sublingual See Rx Instructions .Route 04/12/23 05/12/23 Unknown Rx tablet .COMPLEX #50 tabs levothyroxine 75 mcg capsule 75 mcg PO DAILY #30 caps 04/15/23 05/06/23 Unknown Rx roflumilast 500 mcg tablet 500 mcg PO DAILY #90 tabs 04/15/23 05/06/23 Unknown Rx (Daliresp) tizanidine 4 mg tablet 4 mg PO TID PRN Muscle Spasticity 04/15/23 05/06/23 Unknown Rx #90 tabs 2 inch toilet seat #1 ea 04/20/23 05/12/23 Unknown Rx albuterol sulfate 90 mcg/actuation See Rx Instructions .Route 04/27/23 05/12/23 Unknown Rx aerosol inhaler (Ventolin HFA) .COMPLEX #18 grams montelukast 4 mg oral granules in 4 mg PO BID #60 ea 05/06/23 05/12/23 Unknown Rx packet bumetanide 0.5 mg tablet 0.5 mg PO DAILY #30 tabs 05/17/23 Unknown Rx Allergies Allergy/AdvReac Type Severity Reaction Status Date / Time adhesive tape Allergy ALGY-Rash Verified 05/06/23 14:49 amitriptyline Allergy ALGY-Hives Verified 05/06/23 14:49 amoxicillin Allergy ALGY-Hives Verified 05/06/23 14:49 cefaclor [From Ceclor] Allergy ALGY-Difficulty Verified 05/06/23 14:49 Breathing ciprofloxacin [From Cipro] Allergy ALGY-Difficulty Verified 05/06/23 14:49 Breathing gabapentin Allergy ALGY-Hives Verified 05/06/23 14:49 ibuprofen Allergy ALGY-Hives Verified 05/06/23 14:49 metronidazole [From Flagyl] Allergy ALGY-Hives Verified 05/06/23 14:49 Penicillins Allergy ALGY-Hives Verified 05/06/23 14:49 Sulfa (Sulfonamide Allergy ALGY-Hives Verified 05/06/23 14:49 Antibiotics) tetracycline Allergy ALGY-Hives Verified 05/06/23 14:49 trimethoprim Allergy ALGY-Hives Verified 05/06/23 14:49 PFSH Acute PFSH: Medical History Atypical chest pain Patient had a cardiac catheterization in 2009 and was found to have no significant coronary disease. Atypical chest pain Benign essential hypertension CAD (coronary artery disease) CVA (cerebral vascular accident) Dyslipidemia (high LDL; low HDL) History of COPD Hx of carotid stenosis SOB (shortness of breath) Thyroid cancer Surgical History H/O thyroidectomy History of ankle surgery History of back surgery History of bilateral carpal tunnel release History of bronchoscopy History of hip surgery History of lumpectomy History of rectal surgery Hx of hysterectomy Port-A-Cath in place S/P hardware removal Spine Family History Brother Leukemia Diabetes Lung disease Mother Anesthesia complication CAD (coronary artery disease) Father Bleeding disorder Clotting disorder CAD (coronary artery disease) Cancer Stroke Sister CAD (coronary artery disease) Chronic kidney disease (CKD) Lung disease Family/Other Diabetes Stroke Grandfather Suicide Denies family history of Dementia Social History Smoking and tobacco status: current every day smoker (0.5 ppd) cigarettes Packs smoked per day: 0.5 Years cigarettes smoked: 55 [ Other cigarette details: Hx of 2 PPD x 50 Years, started at age 12] Quit status (tobacco): considering quitting Second hand smoke exposure: Yes Smoking risk assessment/counseling performed?: Yes Alcohol intake: never Desire information about alcohol rehabilitation?: No Counseling given: No Substance/Drug Use: never Desire information about substance/drug rehabilitation?: No Counseling given: No Adopted: No Lives independently: Yes Household members: none Housing: Apartment Marital status: / Current occupational status: disabled Do you think of yourself as: Straight/Heterosexual Current gender identity: Female Vitals/I&O/Wt Last Vital Signs Temp 98.3 F 05/20/23 18:17 Pulse 64 05/20/23 19:31 Resp 12 05/20/23 18:31 BP 133/59 05/20/23 19:31 Pulse Ox 100 05/20/23 19:31 O2 Del Method Nasal Cannula 05/20/23 19:31 O2 Flow Rate 2 05/20/23 19:31 Weight last 48 hrs Weight 37.195 kg Physical Exam Narrative: elderly female Cachectic and malnourished Currently on 3 L Abdomen soft S1, S2 sinus pauses noted Hemodynamically stable Family at the bedside Hoarseness of voice NIH 0 Nonfocal neuro exam Data 05/20/23 19:28 05/20/23 19:28 A&P Assessment and plan (1) Bradycardia: (2) Sinus pause: (3) Syncopal episodes: (4) Nicotine dependence, cigarettes, with unspecified nicotine-induced disorder s: (5) Dizziness: (6) Fall: (7) COPD (chronic obstructive pulmonary disease): Qualifiers: COPD type: COPD with acute exacerbation Qualified Code(s): J44.1 - Chronic obstructive pulmonary disease with (acute) exacerbation Plan Sinus pauses Syncope Likely related to bradycardia Monitor in ICU Hemodynamically stable Discontinue metoprolol Check D-dimer Patient is complaining of chest heaviness We will request Lexiscan stress test in the morning Requested echo Call to cardiology Continue Suboxone for her back pain Patient uses 3 L of oxygen at baseline Still smoking half a pack of cigarettes every day For lung cancers finished radiotherapy I am holding her Bumex for tonight DVT prophylaxis on hold in case she would require any pacemaker evaluation in the morning Check TSH Continue levothyroxine Attestations Medical Necessity Statement*: More than 2 midnights anticipated for management of sinus pauses and syncopal events Coding Level of Care Code 97662 Moderate MDM includes number and complexity of problems actively addressed during encounter, amount and/or complexity of data reviewed/ordered and described risk of complication, morbidity or mortality of management as d ocumented Diagnoses Bradycardia R00.1 Sinus pause I45.5 Syncopal episodes R55 Nicotine dependence, cigarettes, with unspecified nicotine-induced disorders F17.219 Dizziness R42 Fall W19.XXXA COPD (chronic obstructive pulmonary disease) J44.1 COPD type: COPD with acute exacerbation
[2023-05-20 20:30] VITALS: BP 154/70; PULSE 83
--- NOTE | 2023-05-20 20:30 | ECG_ITS ---
[facility] Test Date: 2023-05-20 Pat Name: Sakina Lombardi Department: Room: Gender: Female Head Greenskeeper: : 1950 Requested By: Ramiro Shankar Order Number: [id number] Barney MD: Tai Ramirez M.D. Measurements Intervals [place] Rate: 66 P: 80 ND: 177 QRS: 65 QRSD: 81 T: 60 QT: 409 QTc: 429 Interpretive Statements SINUS RHYTHM WITH SINUS ARRHYTHMIA Compared to ECG 08/06/2021 22:18:20 No significant changes Electronically Signed On 05-21-2023 8:46:16 CDT by Tai Ramirez M.D. [id number]
[2023-05-20 21:00] VITALS: BP 150/48; PULSE 67; O2SAT 91
[2023-05-20 21:09] LABS: D Dimer 0.63 ug/mIFEU (0-0.59)
[2023-05-20 21:20] LABS: Procalcitonin 0.02 ng/mL (0-0.5)
[2023-05-20 21:30] VITALS: BP 146/57; PULSE 70
--- NOTE | 2023-05-20 22:36 | ECG_ITS ---
[facility] Test Date: 2023-05-21 Pat Name: Sakina Lombardi Department: Room: [facility] Gender: Female Pharmaceutical Officer: Awilda CravenFrancisco Javier : 1950 Requested By: Joseph De Los Santos Order Number: [id number] Barney MD: Rosette Cunningham M.D. Interpretive Statements NAME OF STUDY: LEXISCAN SESTAMIBI STRESS TEST INDICATION: Chest heaviness PROCEDURE: At the baseline, the blood pressure was 133/69 mmHg with a heart rate of 81 bpm. The electrocardiogram showed sinus rhythm with possible old anteroseptal infarct. The Lexiscan was infused over a period of 20 seconds. A total of 0.4 milligrams of Lexiscan was infused. The stress phase was continued for a total of 5 minutes. Heart rate at the end of the stress phase was 98 bpm with a blood pressure 159/84 mmHg. The EKG at the peak infusion revealed significant ST-T wave changes. Sestamibi was injected 20 seconds after the Lexiscan infusion. Blood pressure at the end of the recovery phase was 144 over 79 mmHg with a heart rate of 114 beats per minute. CONCLUSION: 1. No significant EKG changes with the LexiScan infusion. 2. No LexiScan induced chest pain or cardiac arrhythmia. 3. Normal blood pressure and heart rate response. 4. Sestamibi/sestamibi perfusion scan pending; see separate report. Electronically Signed On 05-21-2023 11:14:23 CDT by Rosette Cunningham M.D. [id number]
--- NOTE | 2023-05-20 22:36 | USCV_ITS ---
Sakina Lombardi Age: 73 Gender: F : 1950 Exam Date: 05/20/2023 23:00 Ordering Phys: Joseph De Los Santos MD Technologist: KIP Exam Location: [facility] [place] Indication: bradycardia, pauses, shortness of breath, History COPD, asthma, emphysema. Long-term smoker, continues smoking. No history of cardiac intervention per patient. BP: 146 / 57 HR: 76 Rhythm: Sinus Technical Quality: Adequate MEASUREMENTS (Male / Female) Normal Values 2D ECHO LV Diastolic Diameter PLAX 3.3 cm 4.2 - 5.9 / 3.9 - 5.3 cm LV Systolic Diameter PLAX 2.1 cm IVS Diastolic Thickness 1.2 cm 0.6 - 1.0 / 0.6 - 0.9 cm IVS Systolic Thickness 1.1 cm LVPW Diastolic Thickness 1.0 cm 0.6 - 1.0 / 0.6 - 0.9 cm LVPW Systolic Thickness 1.5 cm LVOT Diameter 1.6 cm LV Ejection Fraction 2D Teich 67.4 % LV Ejection Fraction MOD 2C 57.7 % LV Ejection Fraction 2C AL 56.4 % LA Diameter 2.8 cm LA Width 2.5 cm LA Height 4.5 cm RA Width 2.5 cm RA Height 3.5 cm Aorta at Sinotubular Diameter 2.6 cm IVC Diameter 1.6 cm M-MODE Aortic Annulus Diameter 2.5 cm LA Ao Ratio MM 1.1 MV E Point Septal Separation 0.6 cm DOPPLER AV Peak Velocity 147.0 cm/s LVOT Peak Velocity 129.0 cm/s AV Area Cont Eq vti 1.7 cm squared AV Area Cont Eq pk 1.7 cm squared MV Area PHT 5.0 cm squared Mitral E to A Ratio 1.3 MV E' Velocity 69.5 cm/s Mitral E to MV E' Ratio 12.2 Mitral E to LV E' Lateral Ratio 10.3 Mitral E to LV E' Septal Ratio 15.1 TR Peak Velocity 357.8 cm/s TR Peak Gradient 51.2 mmHg TV Peak E Velocity 82.0 cm/s Right Atrial Pressure 5.0 mmHg Pulmonary Artery Systolic Pressu 56.2 mmHg PV Peak Velocity 92.0 cm/s RV Acceleration Time 0.1 s RV Ejection Time 0.4 s RV AcT/ET 0.3 FINDINGS Left Ventricle Left ventricle is normal in size. LV systolic function is normal with EF of 55 to 60%. No regional wall motion abnormalities are seen. Right Ventricle Normal in size and function Right Atrium Normal in size Left Atrium Normal in size Mitral Valve Moderately thickened mitral valve. Mild mitral regurgitation. Aortic Valve Aortic valve is thickened and calcified. Moderate aortic regurgitation. No significant aortic stenosis. Tricuspid Valve Moderate tricuspid regurgitation. RVSP is 55 to 60 mmHg. This is consistent with moderate pulmonary hypertension. Pulmonic Valve Not well-visualized Pericardium Normal Aorta Normal in size IVC Appears to be normal CONCLUSIONS LV systolic function is normal with EF of 55 to 60%. Mild mitral regurgitation Moderate aortic regurgitation Moderate tricuspid regurgitation Moderate pulmonary hypertension Compared to prior echocardiogram from 05/2022, no significant changes are seen Tai Ramirez MD (Electronically Signed) Final Date: 21 May 2023 10:29 S
[2023-05-20 23:01] LABS: Thyroid Stimulating Hormone 1.03 uIU/mL (0.27-4.20)
[2023-05-20] MEDS: buprenorphine-naloxone 4-1 mg Film 2 EACH SUBLINGUAL (23:19)
[2023-05-21] VITALS (24 sets, daily range): BP systolic 102–144; BP diastolic 40–87; PULSE 65–125; RESP 15–45; TEMP 36.2; O2SAT 85–100
[2023-05-21] MEDS: ipratropium-albuterol 3 mL Neb INHALATION ×3 (00:12→20:04)
--- NOTE | 2023-05-21 00:25 | ECG_ITS ---
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 Measurements Intervals [place] Rate: 61 P: 75 [place]: 167 QRS: 70 QRSD: 79 T: 62 QT: 406 QTc: 411 Interpretive Statements SINUS RHYTHM WITH MARKED SINUS ARRHYTHMIA POSSIBLE ANTERIOR MYOCARDIAL INFARCTION , OF INDETERMINATE AGE [30 ms Q WAVE IN V3/V4, OR R < 0.2 mV IN V4] Compared to ECG 05/20/2023 20:30:51 Myocardial infarct finding now present Electronically Signed On 05-21-2023 8:45:34 CDT by Tai Ramirez M.D. [id number]
[2023-05-21] MEDS: tizanidine 4 mg Tablet PO ×4 (02:03→23:17)
[2023-05-21 02:51] LABS: Troponin 5 6HR 15.64 ng/L (0-10)
[2023-05-21 02:56] LABS: Anion Gap 11.8 (5-19); Blood Urea Nitrogen 12 mg/dL (8-23); Carbon Dioxide 33 mmol/L (22-29); Chloride 100 mmol/L (98-107); Glucose 84 mg/dL (65-115); Magnesium 1.7 mg/dL (1.7-2.3); Osmolality Calculated 291 mOsm/kg (285-295); Potassium 3.8 mmol/L (3.5-5.1); Sodium 141 mmol/L (136-145)
[2023-05-21 03:06] LABS: Troponin 5 6HR Delta 1.64 ng/L (0-12)
[2023-05-21] MEDS: buprenorphine-naloxone 4-1 mg Film 2 EACH SUBLINGUAL ×3 (06:07→22:18)
--- NOTE | 2023-05-21 07:30 | NMCV_ITS ---
NM paulo perf SPECT r/s* [id number] Sakina Lombardi Age: 73 Gender: F : 1950 Exam Date: 05/21/2023 07:30 Ordering Phys: Joseph De Los Santos MD Technologist: MARY Badillo Exam Location: [facility] Indications: CHEST PAIN STRESS TEST Please see separate stress test report in [facility] for full findings IMAGE PROTOCOL Rest/Stress 1 Lexiscan Day Radiopharmaceutical Dose (mCi) Administration Site Administered by Rest: Tc-99m 10.7 IV Joaquin Forte, PRODUCTION TEAM ADVISOR Sestamibi Stress:Tc-99m 32.7 IV Joaquin Forte, PRODUCTION TEAM ADVISOR Sestamibi Rest: 21-May-2023 60 Discovery 630 Stress: 21-May-2023 30 Discovery 630 0.4mg Lexiscan. Supine position only as patient was unable to lay prone. SPECT RESULTS Technical Quality: Good Raw Data Analysis: Normal Image Corrections: No attenuation or motion correction applied Summed Stress Score: 3 Summed Rest Score: 5 Summed Difference Score: 0 PERFUSION FINDINGS Small sized perfusion abnormality of mild severity of mid inferolateral, apical lateral, apical inferior and apical septal and apical fisher on rest and stress images. FUNCTIONAL RESULTS (calculated via Gated SPECT) Stress Image LV EF (%): 89 Stress EDV (mL):44 TID: 0.84 Stress ESV (mL):5 FUNCTIONAL FINDINGS: The left ventricle is normal in size. Transient Ischemia Dilatation of 0.84. The left ventricular ejection fraction is normal with a value of 89%. There is hyperdynamic left ventricular wall thickening. IMPRESSIONS 1. Small sized perfusion abnormality of mild severity of mid inferolateral, apical lateral, apical inferior and apical septal and apical fisher. 2. This may represent attenuation artifact or old myocardial infarction in left anterior descending artery territory. 3. EKG portion of the study will be reported separately. 4. No Coronary ischemia based on the study. Rosette Cunningham MD (Electronically Signed) Final Date: 21 May 2023 11:12 S
[2023-05-21] MEDS: regadenoson 0.4 Mg/5 ml Syringe IVP (08:20)
[2023-05-21] MEDS: ondansetron 2 mg/ML SDV 2 mL 4 MG IVP (08:33)
--- NOTE | 2023-05-21 08:49 | P.CONIM_ITS ---
Providers/Reason For Consult Consulting Physician/Specialty*: Tai Ramirez MD/ Cardiology Reason for Consult*: Bradycardia/ syncope Attending Physician: Joseph De Los Santos MD Primary Care Provider: Fei Laura DO History of Present Illness History of Present Illness Sakina Lombardi is a 73 year old female with past medical history of CAD, dyslipidemia, tobacco abuse, lung cancer who presented to hospital with syncopal episodes. She says that she has been having on and off syncopal episodes for several months now. She was found to have bradycardia with sinus pauses. She is on metoprolol 25 mg twice daily. Associated with the symptoms at times she had chest pressure feeling. Stress test was done that does not show significant ischemia. Her metoprolol was stopped at admission yesterday. She had 1 pause of about 3 seconds this morning. Not associated with syncope. ECHO shows normal LV systolic function. Review of Systems Const: Denies: fever(s) Eyes: Denies: change in vision ENMT: Denies: throat pain Card: Reports: chest pain, dyspnea on exertion and orthopnea Resp: Denies: dyspnea GI: Denies: abdominal pain : Denies: flank pain Musc: Denies: neck pain Skin/Breast: Denies: rash Neuro: Denies: headache(s) Psych: Reports: anxiety Endo: Denies: polyuria Medications/Allergies Home Medications Medication Instructions Recorded Confirmed Last Taken Type buprenorphine 8 mg-naloxone 2 mg 1 film sublingual Q8H 12/04/19 05/21/23 08/06/21 History sublingual film (Suboxone) oxygen #1 ea 04/08/21 05/21/23 04/21/21 Rx diphenhydramine HCl 25 mg capsule 25 mg PO BID PRN Allergy Symptoms 04/18/21 05/21/23 08/06/21 History (Benadryl) calcitriol 0.5 mcg capsule 0.5 mcg PO DAILY #90 caps 05/25/22 05/21/23 Unknown Rx (Rocaltrol) metoprolol tartrate 25 mg tablet See Rx Instructions .Route 01/19/23 05/21/23 Unknown Rx .COMPLEX #180 tabs atorvastatin 40 mg tablet 40 mg PO DAILY #90 tabs 02/16/23 05/21/23 Unknown Rx budesonide 0.5 mg/2 mL suspension 0.5 mg (2 mL) inhalation BID #120 03/02/23 05/21/23 Unknown Rx for nebulization mL formoterol fumarate 20 mcg/2 mL 2 ml inhalation BID #120 mL 03/02/23 05/21/23 Unknown Rx solution for nebulization ipratropium 0.5 mg-albuterol 3 mg 3 ml inhalation Q6H PRN wheezing 03/02/23 06/02/18 Unknown Rx (2.5 mg base)/3 mL nebulization #90 mL soln potassium chloride 20 mEq/15 mL 8 meq (6 mL) PO DAILY PRN 03/11/23 05/21/23 Unknown Rx oral liquid hypokalemia #1,800 mL magnesium 30 mg tablet 30 mg PO DAILY #90 tabs 04/01/23 05/21/23 Unknown Rx nitroglycerin 0.4 mg sublingual See Rx Instructions .Route 04/12/23 05/21/23 Unknown Rx tablet .COMPLEX #50 tabs levothyroxine 75 mcg capsule 75 mcg PO DAILY #30 caps 04/15/23 05/21/23 Unknown Rx roflumilast 500 mcg tablet 500 mcg PO DAILY #90 tabs 04/15/23 05/21/23 Unknown Rx (Daliresp) tizanidine 4 mg tablet 4 mg PO TID PRN Muscle Spasticity 04/15/23 05/21/23 Unknown Rx #90 tabs 2 inch toilet seat #1 ea 04/20/23 05/21/23 Unknown Rx albuterol sulfate 90 mcg/actuation See Rx Instructions .Route 04/27/23 05/21/23 Unknown Rx aerosol inhaler (Ventolin HFA) .COMPLEX #18 grams bumetanide 0.5 mg tablet 0.5 mg PO DAILY #30 tabs 05/17/23 05/21/23 Unknown Rx lidocaine 5 % topical patch 1 patch transdermal DAILY 05/21/23 05/21/23 Unknown History montelukast 4 mg chewable tablet 8 mg PO DAILY 05/21/23 05/21/23 Unknown History Allergies Allergy/AdvReac Type Severity Reaction Status Date / Time adhesive tape Allergy ALGY-Rash Verified 05/21/23 10:14 amitriptyline Allergy ALGY-Hives Verified 05/21/23 10:14 amoxicillin Allergy ALGY-Hives Verified 05/21/23 10:14 cefaclor [From Ceclor] Allergy ALGY-Difficulty Verified 05/21/23 10:14 Breathing ciprofloxacin [From Cipro] Allergy ALGY-Difficulty Verified 05/21/23 10:14 Breathing gabapentin Allergy ALGY-Hives Verified 05/21/23 10:14 ibuprofen Allergy ALGY-Hives Verified 05/21/23 10:14 metronidazole [From Flagyl] Allergy ALGY-Hives Verified 05/21/23 10:14 Penicillins Allergy ALGY-Hives Verified 05/21/23 10:14 Sulfa (Sulfonamide Allergy ALGY-Hives Verified 05/21/23 10:14 Antibiotics) tetracycline Allergy ALGY-Hives Verified 05/21/23 10:14 trimethoprim Allergy ALGY-Hives Verified 05/21/23 10:14 Current Medications Generic Name Dose Route Start Last Admin Trade Name Freq PRN Reason Stop Dose Admin Albuterol/Ipratropium 3 ml 05/20/23 22:36 05/21/23 00:12 Ipratropium-Albuterol 3 Ml Neb INHALATION 3 ml Q6H PRN Administration SHORTNESS OF BREATH Buprenorphine/Naloxone 2 each 05/20/23 23:00 05/21/23 06:07 Buprenorphine-Naloxone 4-1 Mg Film SUBLINGUAL 2 each Q8H ALEXA Administration Non-Formulary Medication 30 mg 05/21/23 09:00 05/21/23 08:40 Magnesium PO Not Given DAILY ALEXA Ondansetron HCl 4 mg 05/21/23 06:27 05/21/23 08:33 Ondansetron 2 Mg/Ml Sdv 2 Ml IVP 4 mg Q2M PRN Administration NAUSEA Tizanidine HCl 4 mg 05/20/23 22:36 05/21/23 02:03 Tizanidine 4 Mg Tablet PO 4 mg TID PRN Administration Muscle Spasticity PFSH Acute PFSH: Medical History Atypical chest pain Patient had a cardiac catheterization in 2009 and was found to have no significant coronary disease. Atypical chest pain Benign essential hypertension CAD (coronary artery disease) CVA (cerebral vascular accident) Dyslipidemia (high LDL; low HDL) History of COPD Hx of carotid stenosis SOB (shortness of breath) Thyroid cancer Surgical History H/O thyroidectomy History of ankle surgery History of back surgery History of bilateral carpal tunnel release History of bronchoscopy History of hip surgery History of lumpectomy History of rectal surgery Hx of hysterectomy Port-A-Cath in place S/P hardware removal Spine Family History Brother Leukemia Diabetes Lung disease Mother Anesthesia complication CAD (coronary artery disease) Father Bleeding disorder Clotting disorder CAD (coronary artery disease) Cancer Stroke Sister CAD (coronary artery disease) Chronic kidney disease (CKD) Lung disease Family/Other Diabetes Stroke Grandfather Suicide Denies family history of Dementia Social History Smoking and tobacco status: current every day smoker (0.5 ppd) cigarettes Packs smoked per day: 0.5 Years cigarettes smoked: 55 [ Other cigarette details: Hx of 2 PPD x 50 Years, started at age 12] Quit status (tobacco): considering quitting Second hand smoke exposure: Yes Smoking risk assessment/counseling performed?: Yes Alcohol intake: never Desire information about alcohol rehabilitation?: No Counseling given: No Substance/Drug Use: never Desire information about substance/drug rehabilitation?: No Counseling given: No Adopted: No Lives independently: Yes Household members: none Housing: Apartment Marital status: / Current occupational status: disabled Do you think of yourself as: Straight/Heterosexual Current gender identity: Female Vitals/I&O/Wt Last Vital Signs Temp 98.3 F 05/20/23 18:17 Pulse 114 H 05/21/23 08:40 Resp 19 H 05/21/23 00:14 BP 144/79 05/21/23 08:40 Pulse Ox 90 05/21/23 00:14 O2 Del Method Nasal Cannula 05/21/23 00:14 O2 Flow Rate 2 05/21/23 00:14 05/20/23 05/21/23 05/21/23 22:59 06:59 14:59 Intake Total 100 / 100 Balance 100 / 100 Weight last 48 hrs Weight 88 lb Weight 82 lb Physical Exam Narrative: GENERAL: Patient is alert, awake and oriented x3. [] NECK: No jugular vein distension. [] HEENT: No cyanosis. No icterus. No pallor. [] HEART: Regular S1 and S2. Has grade 2/6 diastolic murmur and 3/6 systolic murmur LUNGS: Clear to auscultate bilaterally. [] ABDOMEN: Soft CENTRAL NERVOUS SYSTEM: Grossly nonfocal. [] EXTREMITIES: Lower extremities with 1+ edema bilaterally. Pulses palpable in the lower extremities, both dorsalis pedis and posterior tibial. [] Data 05/20/23 19:28 05/21/23 01:49 A&P Assessment and plan (1) Bradycardia: (2) Sinus pause: (3) Syncopal episodes: (4) COPD (chronic obstructive pulmonary disease): Qualifiers: COPD type: emphysema Emphysema type: panlobular Qualified Code(s): J43.1 - Panlobular emphysema (5) Dyslipidemia (high LDL; low HDL): Plan Patient has presented with recurrent syncopal episodes. She was having occasional sinus pauses. Since holding beta-kapil, had 1 pause this morning that was about 3 seconds long. No syncopal episode associated with that. We will recommend continue holding rate controlling agents and telemetry monitoring till tomorrow. If this resolves further pauses, she can be discharged home with event monitor for 30 days. However if she continues having pauses, will n eed pacemaker placement. Stress test not showing significant ischemia. Medical therapy. Thank you for involving us with care of this patient. We will continue to follow. Please call with questions Consult Attestations Medical Necessity Statement: Care expected to cross 2 midnights Coding Level of Care Code Acute Code for Chg Fwd Diagnoses Bradycardia R00.1 Sinus pause I45.5 Syncopal episodes R55 COPD (chronic obstructive pulmonary disease) J43.1 COPD type: emphysema Emphysema type: panlobular Dyslipidemia (high LDL; low HDL) E78.5
--- NOTE | 2023-05-21 09:09 | PC.PHAR ---
PT IN STRESS TEST AT 8:10 WHEN ATTEMPTING TO DO MED REC-WILL CHECK BACK LATER
[2023-05-21] MEDS: calcitriol 0.25 mcg Capsule 0.5 MCG PO (09:48)
[2023-05-21] MEDS: levothyroxine 75 mcg Tablet PO (09:49)
[2023-05-21] MEDS: roflumilast 500 mcg Tablet PO (09:49)
--- NOTE | 2023-05-21 12:10 | P.PN_ITS ---
Subjective Subjective: Stress test unremarkable Sinus pauses on telemetry Patient will be monitored 1 more day Cardiology to see No active complaints TSH normal Normal procalcitonin At baseline oxygen requirement of 2 L Vitals/I&O/Wt Last Vital Signs Temp 98.3 F 05/20/23 18:17 Pulse 114 H 05/21/23 08:40 Resp 19 H 05/21/23 00:14 BP 144/79 05/21/23 08:40 Pulse Ox 90 05/21/23 00:14 O2 Del Method Nasal Cannula 05/21/23 00:14 O2 Flow Rate 2 05/21/23 00:14 05/20/23 05/21/23 05/21/23 22:59 06:59 14:59 Intake Total 100 / 100 Balance 100 / 100 Weight last 48 hrs Weight 39.916 kg Weight 37.195 kg Physical Exam Narrative: Awake and alert No active complaints Protein calorie malnourishment Euvolemic GCS 15 Currently on 2 L Abdomen soft S1, S2 sinus rhythm No active chest pain No active shortness of breath Data 05/20/23 19:28 05/21/23 01:49 A&P Assessment and plan (1) Sinus pause: (2) Bradycardia: (3) Syncopal episodes: (4) Lung cancer: Qualifiers: Laterality: unspecified laterality Lung location: unspecified part of lung Qualified Code(s): C34.90 - Malignant neoplasm of unspecified part of unspecified bronchus or lung (5) Cor pulmonale: (6) Dizziness: Plan Sinus pauses Bradycardia Recurrent syncope Stress test negative Start cardiac diet Cardiology to see Monitor 1 more day with telemetry Pacemaker evaluation is needed Hold beta-kapil Continue Suboxone for her back pain Lung cancer status post radiotherapy Chronic hypoxia requiring 2 L Full code Attestations Medical Necessity Statement*: Disposition will be decided after cardiology consultation Diagnoses Sinus pause I45.5 Bradycardia R00.1 Syncopal episodes R55 Lung cancer C34.90 Laterality: unspecified laterality Lung location: unspecified part of lung Cor pulmonale I27.81 Dizziness R42
[2023-05-21] MEDS: potassium chloride oral liq 20 mEq/15 mL UDC PO (14:13)
[2023-05-21] MEDS: montelukast sodium 10 mg Tablet PO (17:01)
[2023-05-21] MEDS: budesonide 0.5 mg/2 mL Neb INHALATION (20:03)
[2023-05-22] VITALS (53 sets, daily range): BP systolic 98–159; BP diastolic 37–99; PULSE 82–153; RESP 9–37; TEMP 36.5–37.1; O2SAT 70–100
[2023-05-22] MEDS: lidocaine 4% cream 5 gm 1 APPLIC TOPICAL (02:04)
[2023-05-22] MEDS: LORazepam 2 mg/mL INJ 1 mL 0.25 MG IVP (02:23)
[2023-05-22] MEDS: ipratropium-albuterol 3 mL Neb INHALATION ×3 (02:55→14:57)
--- NOTE | 2023-05-22 08:07 | PM.PN ---
Subjective Subjective: Patient had more episodes of pauses close to 3 seconds long. She states she felt dizzy at the time. No passing out spells. Otherwise her heart rate is staying elevated and she is in sinus tachycardia Vitals/I&O/Wt Last Vital Signs Temp 98.3 F 05/20/23 18:17 Pulse 87 05/22/23 06:00 Resp 15 05/22/23 02:55 BP 144/79 05/21/23 08:40 Pulse Ox 95 05/22/23 02:55 O2 Del Method Nasal Cannula 05/22/23 02:55 O2 Flow Rate 3 05/22/23 02:55 05/21/23 05/22/23 05/22/23 22:59 06:59 14:59 Intake Total 960 / 1440 180 / 1620 Balance 960 / 1440 180 / 1620 Weight last 48 hrs Weight 88 lb Weight 82 lb Physical Exam Narrative: GENERAL: Patient is alert, awake and oriented x3. [] NECK: No jugular vein distension. [] HEENT: No cyanosis. No icterus. No pallor. [] HEART: Regular S1 and S2. Has grade 2/6 diastolic murmur and 3/6 systolic murmur LUNGS: Clear to auscultate bilaterally. [] ABDOMEN: Soft CENTRAL NERVOUS SYSTEM: Grossly nonfocal. [] EXTREMITIES: Lower extremities with 1+ edema bilaterally. Pulses palpable in the lower extremities, both dorsalis pedis and posterior tibial. [] Data 05/23/23 02:03 05/23/23 02:03 A&P Assessment and plan (1) Bradycardia: (2) Sinus pause: (3) Syncopal episodes: (4) COPD (chronic obstructive pulmonary disease): Qualifiers: COPD type: emphysema Emphysema type: panlobular Qualified Code(s): J43.1 - Panlobular emphysema (5) Dyslipidemia (high LDL; low HDL): Plan No more syncopal episodes. Patient had multiple episodes of sinus pauses. She has been off of beta-blockers for over 24 hours. Otherwise her heart rate is staying elevated and she stays in sinus tachycardia. She says she felt dizzy when she had the pauses. I discussed the need for permanent pacemaker placement. She wants to think about it at this time. We can continue to watch in the hospital if she gets more pauses while holding beta-blockers. Stress test not showing significant ischemia. Medical therapy. Thank you for involving us with care of this patient. We will continue to follow. Please call with questions Attestations Medical Necessity Statement*: Care expected to cross 2 midnights. Coding Level of Care Code Acute Code for Chg Fwd Diagnoses Bradycardia R00.1 Sinus pause I45.5 Syncopal episodes R55 COPD (chronic obstructive pulmonary disease) J43.1 COPD type: emphysema Emphysema type: panlobular Dyslipidemia (high LDL; low HDL) E78.5
[2023-05-22] MEDS: calcitriol 0.25 mcg Capsule 0.5 MCG PO (08:08)
[2023-05-22] MEDS: levothyroxine 75 mcg Tablet PO (08:08)
[2023-05-22] MEDS: predniSONE 10 mg Tablet PO (08:08)
[2023-05-22] MEDS: buprenorphine-naloxone 4-1 mg Film 2 EACH SUBLINGUAL ×3 (08:09→22:46)
[2023-05-22] MEDS: roflumilast 500 mcg Tablet PO (08:10)
[2023-05-22] MEDS: budesonide 0.5 mg/2 mL Neb INHALATION (08:46)
--- NOTE | 2023-05-22 11:55 | PM.PN ---
Subjective Subjective: Patient is agreeable for pacemaker placement Family meeting conducted Patient will stay until Wednesday Cardiology notified Vitals/I&O/Wt Last Vital Signs Temp 98.3 F 05/20/23 18:17 Pulse 108 H 05/22/23 08:47 Resp 20 H 05/22/23 08:47 BP 144/79 05/21/23 08:40 Pulse Ox 93 05/22/23 08:47 O2 Del Method Nasal Cannula 05/22/23 08:47 O2 Flow Rate 2 05/22/23 08:47 05/21/23 05/22/23 05/22/23 22:59 06:59 14:59 Intake Total 960 / 1440 180 / 1620 240 / 240 Balance 960 / 1440 180 / 1620 240 / 240 Weight last 48 hrs Weight 39.916 kg Weight 37.195 kg Physical Exam Narrative: Patient is euvolemic Resting tremors Complaining of cramps Nonfocal neuro exam Currently on 2 L GCS 15 Awake and alert Abdomen soft Because of resting tremors heart rate is being read as high Data 05/20/23 19:28 05/21/23 01:49 A&P Assessment and plan (1) Sinus pause: (2) Bradycardia: (3) Syncopal episodes: (4) COPD (chronic obstructive pulmonary disease): Qualifiers: COPD type: emphysema Emphysema type: panlobular Qualified Code(s): J43.1 - Panlobular emphysema (5) Lung cancer: Qualifiers: Laterality: unspecified laterality Lung location: unspecified part of lung Qualified Code(s): C34.90 - Malignant neoplasm of unspecified part of unspecified bronchus or lung Plan 73-year-old female who presented with chief complaint recurrent syncopal events Sinus pauses Symptomatic Patient is agreeable for pacemaker placement Hold beta-kapil Plan for pacemaker placement on Wednesday Currently hemodynamically stable Target potassium mag level above 4 and 2 respectively Appreciate cardiology recommendations We have ruled out coronary ischemia History of lung cancer status post radiotherapy, patient has stage I lung cancer right lower lobe, stable lesion status post radiotherapy, non-small cell cancer however definitive diagnosis could not be reached because of inadequate sampling Patient carries history of thyroid cancer, laryngeal cancer COPD, requires oxygen 2 L at baseline, patient uses Spiriva and Advair Echo with preserved ejection fraction, Full code She can be transferred out of ICU to CSU until Wednesday Cardiac diet Hypothyroid continue levothyroxine I have added magnesium as well Attestations Medical Necessity Statement*: Can be transferred out of ICU Diagnoses Sinus pause I45.5 Bradycardia R00.1 Syncopal episodes R55 COPD (chronic obstructive pulmonary disease) J43.1 COPD type: emphysema Emphysema type: panlobular Lung cancer C34.90 Laterality: unspecified laterality Lung location: unspecified part of lung
[2023-05-22] MEDS: ALPRAZolam 0.5 mg Tablet PO (15:25)
[2023-05-22] MEDS: montelukast sodium 10 mg Tablet PO (17:55)
[2023-05-22] MEDS: morphine IR 15 mg Tablet PO (19:49)
[2023-05-22] MEDS: lidocaine 2% viscous 15 ML, aluminum-mag hydrox-simethicon 30 ML, sucralfate oral liq 1 GM PO (20:37)
[2023-05-22] MEDS: sodium chloride 0.9% 250 ML IV (20:42)
--- NOTE | 2023-05-22 20:49 | ECG_ITS ---
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 Measurements Intervals [place] Rate: 93 P: 80 LA: 160 QRS: 40 QRSD: 85 T: 52 QT: 352 QTc: 438 Interpretive Statements SINUS RHYTHM WITH MARKED SINUS ARRHYTHMIA Compared to ECG 05/21/2023 00:31:56 Myocardial infarct finding no longer present Electronically Signed On 05-23-2023 8:21:18 CDT by Tai Ramirez M.D. [id number]
[2023-05-22 21:06] LABS: Troponin T (5th) Once 16 ng/L (0-10)
[2023-05-22 22:17] LABS: Anion Gap 13.8 (5-19); Blood Urea Nitrogen 11 mg/dL (8-23); Calcium 9.1 mg/dL (8.5-10.5); Carbon Dioxide 30 mmol/L (22-29); Chloride 98 mmol/L (98-107); Glucose 105 mg/dL (65-115); Magnesium 1.5 mg/dL (1.7-2.3); Osmolality Calculated 286 mOsm/kg (285-295); Potassium 3.8 mmol/L (3.5-5.1); Sodium 138 mmol/L (136-145)
[2023-05-22] MEDS: potassium chloride oral liq 20 mEq/15 mL UDC PO (22:46)
[2023-05-22] MEDS: magnesium sulfate premix 2 GM/50 ML PIGGYBACK IV (22:47)
[2023-05-23] VITALS (43 sets, daily range): BP systolic 126–160; BP diastolic 55–83; PULSE 74–191; RESP 0–29; TEMP 36.4–36.8; O2SAT 80–100
[2023-05-23] MEDS: ALPRAZolam 0.5 mg Tablet PO ×4 (01:33→23:49)
[2023-05-23 02:47] LABS: Basophils % 0.4 %; Eosinophils # 0.1 10^3/uL (0.0-0.8); Eosinophils % 1.3 %; Hematocrit 31.6 % (37.0-47.0); Hemoglobin 9.6 g/dL (11.5-15.3); Lymphocytes # 1.1 10^3/uL (0.8-4.8); Lymphocytes % 13.4 %; Mean Corpuscular HGB Conc 30.4 g/dL (30.0-36.0); Mean Corpuscular Hemoglobin 28.9 pg (28.0-34.0); Mean Corpuscular Volume 95.2 fl (81-99); Mean Platelet Volume 10.5 fL (7.4-10.4); Monocytes # 0.8 10^3/uL (0.2-0.9); Monocytes % 9.5 %; Neutrophils # 6.21 10^3/uL (1.8-7.7); Nucleated Red Blood Cells % 0 %; Platelet Count 141 10^3/cmm (130-400); Red Blood Count 3.32 10^6/uL (4.1-5.3); Red Cell Distribution Width 14.5 % (12.1-15.1); White Blood Count 8.3 10^3/uL (4.0-10.0)
[2023-05-23 03:06] LABS: Anion Gap 13.2 (5-19); Blood Urea Nitrogen 11 mg/dL (8-23); Calcium 9.2 mg/dL (8.5-10.5); Carbon Dioxide 31 mmol/L (22-29); Chloride 98 mmol/L (98-107); Glucose 97 mg/dL (65-115); Osmolality Calculated 285 mOsm/kg (285-295); Potassium 4.2 mmol/L (3.5-5.1); Sodium 138 mmol/L (136-145)
[2023-05-23 03:07] LABS: Magnesium 2.7 mg/dL (1.7-2.3)
[2023-05-23] MEDS: buprenorphine-naloxone 4-1 mg Film 2 EACH SUBLINGUAL ×3 (06:22→22:38)
--- NOTE | 2023-05-23 08:07 | P.PN_ITS ---
Subjective Subjective: Patient is no longer having pauses. Denies chest pain. Vitals/I&O/Wt Last Vital Signs Temp 97.6 F 05/23/23 03:22 Pulse 104 H 05/23/23 05:12 Resp 17 05/23/23 03:22 BP 160/82 05/23/23 03:22 Pulse Ox 97 05/23/23 03:22 O2 Del Method Nasal Cannula 05/23/23 03:22 O2 Flow Rate 2 05/22/23 20:00 05/22/23 05/23/23 05/23/23 22:59 06:59 14:59 Intake Total 1430 / 1790 290 / 2080 Output Total 250 / 250 300 / 550 Balance 1180 / 1540 -10 / 1530 Physical Exam Narrative: GENERAL: Patient is alert, awake and oriented x3. [] NECK: No jugular vein distension. [] HEENT: No cyanosis. No icterus. No pallor. [] HEART: Regular S1 and S2. Has grade 2/6 diastolic murmur and 3/6 systolic murmur LUNGS: Clear to auscultate bilaterally. [] ABDOMEN: Soft CENTRAL NERVOUS SYSTEM: Grossly nonfocal. [] EXTREMITIES: Lower extremities with 1+ edema bilaterally. Pulses palpable in the lower extremities, both dorsalis pedis and posterior tibial. [] Data 05/24/23 03:01 05/24/23 03:01 A&P Assessment and plan (1) Bradycardia: (2) Sinus pause: (3) Syncopal episodes: (4) COPD (chronic obstructive pulmonary disease): Qualifiers: COPD type: emphysema Emphysema type: panlobular Qualified Code(s): J43.1 - Panlobular emphysema (5) Dyslipidemia (high LDL; low HDL): Plan No syncopal episodes and no pauses. Patient staying in sinus tachycardia. Can o bserve till tomorrow and then plan on starting low dose beta blockers if no more pauses Stress test not showing significant ischemia. Medical therapy. Thank you for involving us with care of this patient. We will continue to follow. Please call with questions Attestations Medical Necessity Statement*: Care expected to cross 2 midnights. Coding Level of Care Code Acute Code for [facility] Diagnoses Bradycardia R00.1 Sinus pause I45.5 Syncopal episodes R55 COPD (chronic obstructive pulmonary disease) J43.1 COPD type: emphysema Emphysema type: panlobular Dyslipidemia (high LDL; low HDL) E78.5
[2023-05-23] MEDS: levothyroxine 75 mcg Tablet PO (08:14)
[2023-05-23] MEDS: calcitriol 0.25 mcg Capsule 0.5 MCG PO (08:14)
[2023-05-23] MEDS: budesonide 0.5 mg/2 mL Neb INHALATION (09:26)
[2023-05-23] MEDS: ipratropium-albuterol 3 mL Neb INHALATION ×2 (09:26→14:42)
[2023-05-23 09:37] LABS: Iron 60 ug/dL (37-145); Percent Saturation 26.2 % (20-50); Total Iron Binding Capacity 229 mcg/dl; Unsaturated Iron Binding 169 ug/dL (112-347)
[2023-05-23 09:53] LABS: Vitamin B12 290 pg/mL (232-1245)
[2023-05-23] MEDS: roflumilast 500 mcg Tablet PO (10:23)
--- NOTE | 2023-05-23 12:34 | PM.PN ---
Subjective Subjective: Hospital course, labs appreciated. On examination patient lying comfortably in bed. Denies any nausea, vomiting, headache. Pleasant. States she sees anxious about the pacemaker tomorrow but if she needs it she will get it. Did have 1 episode of dizziness last night but denies any other constitutional symptoms along with dizziness. On telemetry patient's heart rate has been ranging in the low 100, sinus without any episodes of pauses in last 36 hours. Blood work appreciated for hemoglobin of 9.6, stable CMP with magnesium elevated 2.7. Echocardiogram and stress test done during the visit appreciated. Vitals/I&O/Wt Last Vital Signs Temp 98.1 F 05/23/23 12:00 Pulse 100 05/23/23 12:00 Resp 26 H 05/23/23 12:00 BP 145/83 05/23/23 12:00 Pulse Ox 99 05/23/23 12:00 O2 Del Method Nasal Cannula 05/23/23 12:00 O2 Flow Rate 2 05/23/23 09:20 05/22/23 05/23/23 05/23/23 22:59 06:59 14:59 Intake Total 1430 / 1790 290 / 2080 240 / 240 Output Total 250 / 250 300 / 550 Balance 1180 / 1540 -10 / 1530 240 / 240 Physical Exam Narrative: General: No acute distress, AO x3, NC oxygen supplementation HEENT: PERRLA, pupils bilaterally equal and reactive Chest:Bronchial breath sounds b/l, occasional rhonchi all over the lung mata CVS: S1-S2 regular, no murmurs, no tachycardia, no gallops, no rubs Abdomen: Soft, nontender, no organomegaly, bowel sounds present, morbidly obese Neuro: No focal deficits, no facial deformity, AO x3, power 5/5 in all limbs Data 05/23/23 02:03 05/23/23 02:03 A&P Assessment and plan (1) Syncopal episodes: (2) Sinus pause: (3) Bradycardia: (4) COPD (chronic obstructive pulmonary disease): Qualifiers: COPD type: emphysema Emphysema type: panlobular Qualified Code(s): J43.1 - Panlobular emphysema (5) Lung cancer: Qualifiers: Laterality: unspecified laterality Lung location: unspecified part of lung Qualified Code(s): C34.90 - Malignant neoplasm of unspecified part of unspecified bronchus or lung Plan 73-year-old female who presented with chief complaint recurrent syncopal events found to be having bradycardia with sinus pauses on admission. Syncope: Most likely in setting of bradycardia with sinus pauses. ACS ruled out with negative troponin and Lexiscan stress test. Carotid Doppler done recently in March 2023 appreciated for bilateral less than 50%. D-dimer on admission 0.63 which is negative when correlated with age and is on the lower side since last checked in June. Echocardiogram done shows normal EF without any wall motion abnormality with moderate AI, moderate TR and moderate pulmonary hypertension. Sinus pauses with Symptomatic bradycardia: Most likely in setting of home dose of beta-kapil. No further sinus pauses in last 36 hours. Bradycardia resolved. Patient now having sinus tachycardia. Appreciate cardiology recommendations. Discussed in detail. For now we will hold off on pacemaker implantation. Monitor for next 24 hours. If continues to remain tachycardic can plan to add low-dose beta-kapil again and monitor with possible discharge on event monitor. Discussed in detail with the patient. She is agreeable with the plan. Telemetry monitoring. Orthostatic check. Target potassium, magnesium level above 4 and 2 respectively. Hold off on oral magnesium supplementation for now. Repeat again in morning. History of lung cancer status post radiotherapy, patient has stage I lung cancer right lower lobe, stable lesion status post radiotherapy, non-small cell cancer however definitive diagnosis could not be reached because of inadequate sampling Patient carries history of thyroid cancer, laryngeal cancer COPD: Requires oxygen 2 L at baseline, patient uses Spiriva and Advair No active exacerbation for now. Continue with home dose of steroid as needed. DuoNeb every 6 hour, Pulmicort twice daily while in house. Full code Start on Pepcid for PUD prophylaxis Start on heparin 5000 every 12 hourly for DVT prophylaxis. Cardiac diet Continue with CSU care. Telemetry monitoring. Care plan discussed in detail with patient and patient's caregiver. Happy that she might not need PPM implantation. All the questions were answered. Attestations Medical Necessity Statement*: Requires further hospitalization for management of syncope due to symptomatic bradycardia with sinus pause in setting of chronic beta-kapil while patient is assessed for pacemaker implantation. Diagnoses Syncopal episodes R55 Sinus pause I45.5 Bradycardia R00.1 COPD (chronic obstructive pulmonary disease) J43.1 COPD type: emphysema Emphysema type: panlobular Lung cancer C34.90 Laterality: unspecified laterality Lung location: unspecified part of lung
[2023-05-23] MEDS: cyanocobalamin 1,000 mcg Tablet 1000 MCG PO (13:36)
[2023-05-23] MEDS: heparin 5,000 unit/mL INJ 1 mL 5000 UNIT SUBCUT (13:36)
[2023-05-23] MEDS: tizanidine 4 mg Tablet PO ×2 (15:45→20:54)
[2023-05-23] MEDS: montelukast sodium 10 mg Tablet PO (18:15)
[2023-05-23] MEDS: famotidine 20 mg Tablet PO (18:15)
[2023-05-23 22:47] LABS: Anion Gap 11.3 (5-19); Blood Urea Nitrogen 12 mg/dL (8-23); Calcium 9.2 mg/dL (8.5-10.5); Carbon Dioxide 32 mmol/L (22-29); Chloride 100 mmol/L (98-107); Glucose 112 mg/dL (65-115); Osmolality Calculated 289 mOsm/kg (285-295); Potassium 4.3 mmol/L (3.5-5.1); Sodium 139 mmol/L (136-145)
[2023-05-24] VITALS (10 sets, daily range): BP systolic 108–161; BP diastolic 65–76; PULSE 58–121; RESP 16–27; TEMP 36.1–36.6; O2SAT 95–100
[2023-05-24] MEDS: heparin 5,000 unit/mL INJ 1 mL 5000 UNIT SUBCUT ×2 (00:59→12:24)
[2023-05-24 04:09] LABS: Basophils % 0.5 %; Eosinophils # 0.5 10^3/uL (0.0-0.8); Eosinophils % 6.6 %; Hemoglobin 10.4 g/dL (11.5-15.3); Lymphocytes # 1.6 10^3/uL (0.8-4.8); Lymphocytes % 21.8 %; Mean Corpuscular HGB Conc 29.7 g/dL (30.0-36.0); Mean Corpuscular Hemoglobin 28.7 pg (28.0-34.0); Mean Corpuscular Volume 96.7 fl (81-99); Mean Platelet Volume 10.9 fL (7.4-10.4); Monocytes # 0.7 10^3/uL (0.2-0.9); Monocytes % 9.5 %; Neutrophils # 4.54 10^3/uL (1.8-7.7); Neutrophils % 61.3 %; Nucleated Red Blood Cells % 0 %; Platelet Count 165 10^3/cmm (130-400); Red Blood Count 3.62 10^6/uL (4.1-5.3); Red Cell Distribution Width 14.6 % (12.1-15.1); White Blood Count 7.4 10^3/uL (4.0-10.0)
[2023-05-24 04:25] LABS: Magnesium 1.9 mg/dL (1.7-2.3)
[2023-05-24 04:31] LABS: Alanine Aminotransferase 16 U/L (0-33); Albumin Level 3.8 g/dL (3.5-5.2); Alkaline Phosphatase 114 U/L (35-105); Aspartate Amino Transferase 39 U/L (0-32); Blood Urea Nitrogen 13 mg/dL (8-23); Calcium 9.5 mg/dL (8.5-10.5); Carbon Dioxide 33 mmol/L (22-29); Chloride 100 mmol/L (98-107); Globulin 2.8 g/dL (1.3-4.6); Glucose 100 mg/dL (65-115); Osmolality Calculated 290 mOsm/kg (285-295); Sodium 140 mmol/L (136-145); Total Bilirubin 0.3 mg/dL (0.15-1.2); Total Protein 6.6 g/dL (6.6-8.7)
[2023-05-24 04:35] LABS: Anion Gap 11.6 (5-19); Potassium 4.6 mmol/L (3.5-5.1)
[2023-05-24 05:03] LABS: Estmated Average Glucose 97
[2023-05-24] MEDS: buprenorphine-naloxone 4-1 mg Film 2 EACH SUBLINGUAL ×3 (06:25→23:04)
[2023-05-24 06:55] LABS: Folate Level 5.6 ng/mL (4.8-37.3)
[2023-05-24] MEDS: budesonide 0.5 mg/2 mL Neb INHALATION ×2 (09:16→20:30)
[2023-05-24] MEDS: ipratropium-albuterol 3 mL Neb INHALATION ×3 (09:16→20:31)
[2023-05-24] MEDS: calcitriol 0.25 mcg Capsule 0.5 MCG PO (09:39)
[2023-05-24] MEDS: cyanocobalamin 1,000 mcg Tablet 1000 MCG PO (09:39)
[2023-05-24] MEDS: roflumilast 500 mcg Tablet PO (09:39)
[2023-05-24] MEDS: famotidine 20 mg Tablet PO (09:40)
[2023-05-24] MEDS: metoprolol tartrate 25 mg Tablet 12.5 MG PO (09:40)
[2023-05-24] MEDS: levothyroxine 75 mcg Tablet PO (09:40)
[2023-05-24] MEDS: atorvastatin 40 mg Tablet PO (09:40)
[2023-05-24] MEDS: ALPRAZolam 0.5 mg Tablet PO ×2 (10:25→18:18)
--- NOTE | 2023-05-24 17:02 | PM.PN ---
Subjective Subjective: No acute events overnight. Patient denies any nausea, vomiting, headache. Overnight patient has remained in sinus tachycardia with heart rate going up to 120s. Today morning she was started on metoprolol 12.5 mg twice daily after which she started having pauses again going up to 2 to 3 seconds. Beta-kapil was withheld afterwards. Patient denies any nausea, vomiting, headache. Blood work done shows stable CBC and a CMP. Vitals/I&O/Wt Last Vital Signs Temp 97.8 F 05/24/23 16:00 Pulse 64 05/24/23 16:00 Resp 16 05/24/23 16:00 BP 120/73 05/24/23 16:00 Pulse Ox 97 05/24/23 14:00 O2 Del Method Nasal Cannula 05/24/23 16:00 O2 Flow Rate 2 05/24/23 14:00 05/24/23 05/24/23 05/24/23 06:59 14:59 22:59 Intake Total 120 / 120 220 / 340 Output Total 500 / 500 Balance -380 / -380 220 / -160 Physical Exam Narrative: General: No acute distress, AO x3, NC oxygen supplementation HEENT: PERRLA, pupils bilaterally equal and reactive Chest:Bronchial breath sounds b/l, occasional rhonchi all over the lung mata CVS: S1-S2 regular, no murmurs, no tachycardia, no gallops, no rubs Abdomen: Soft, nontender, no organomegaly, bowel sounds present, morbidly obese Neuro: No focal deficits, no facial deformity, AO x3, power 5/5 in all limbs Data 05/24/23 03:01 05/24/23 03:01 A&P Assessment and plan (1) Syncopal episodes: (2) Sinus pause: (3) Bradycardia: (4) COPD (chronic obstructive pulmonary disease): Qualifiers: COPD type: emphysema Emphysema type: panlobular Qualified Code(s): J43.1 - Panlobular emphysema (5) Lung cancer: Qualifiers: Laterality: unspecified laterality Lung location: unspecified part of lung Qualified Code(s): C34.90 - Malignant neoplasm of unspecified part of unspecified bronchus or lung Plan 73-year-old female who presented with chief complaint recurrent syncopal events found to be having bradycardia with sinus pauses on admission. Syncope: Most likely in setting of bradycardia with sinus pauses. ACS ruled out with negative troponin and Lexiscan stress test. Carotid Doppler done recently in March 2023 appreciated for bilateral less than 50%. D-dimer on admission 0.63 which is negative when correlated with age and is on the lower side since last checked in June. Echocardiogram done shows normal EF without any wall motion abnormality with moderate AI, moderate TR and moderate pulmonary hypertension. Sinus pauses with Symptomatic bradycardia: Bradycardia had resolved after withholding home dose of beta-kapil with resolution of sinus pauses and patient converted to sinus tachycardia. On low-dose of beta-kapil patient has started having problems again. High concerns for sick sinus syndrome. Appreciate cardiology recommendations. Discussed in detail. Possible patient still might need pacemaker implantation. Will await further recommendations. Continue on quality assurance monitor. Target potassium, magnesium level above 4 and 2 respectively. Hold off on oral magnesium supplementation for now. Repeat again in morning. History of lung cancer status post radiotherapy, patient has stage I lung cancer right lower lobe, stable lesion status post radiotherapy, non-small cell cancer however definitive diagnosis could not be reached because of inadequate sampling Patient carries history of thyroid cancer, laryngeal cancer COPD: Requires oxygen 2 L at baseline, patient uses Spiriva and Advair No active exacerbation for now. Continue with home dose of steroid as needed. DuoNeb every 6 hour, Pulmicort twice daily while in house. Full code Start on Pepcid for PUD prophylaxis Start on heparin 5000 every 12 hourly for DVT prophylaxis. Cardiac diet Continue with CSU care. Telemetry monitoring. Care plan discussed in detail with patient and patient's caregiver. Happy that she might not need PPM implantation. All the questions were answered. Attestations Medical Necessity Statement*: Patient requires further hospitalization for management of possible sick sinus syndrome, symptomatic bradycardia with sinus pauses Diagnoses Syncopal episodes R55 Sinus pause I45.5 Bradycardia R00.1 COPD (chronic obstructive pulmonary disease) J43.1 COPD type: emphysema Emphysema type: panlobular Lung cancer C34.90 Laterality: unspecified laterality Lung location: unspecified part of lung
--- NOTE | 2023-05-24 18:10 | P.CONIM_ITS ---
Providers/Reason For Consult Consulting Physician/Specialty*: Dr. EDWIN Salmon/cardiology Reason for Consult*: Patient with recurrent episodes of syncope/near syncope, EKG evidence of prolonged pauses more than 3 seconds, persisting even after stopping the beta-kapil Requesting Physician: Dr. Ramirez/Dr. Garces Attending Physician: Chet Bowman MD Primary Care Provider: Fie Laura DO History of Present Illness History of Present Illness Sakina Lombardi is a 73 year old female, who is admitted to hospital with complaints of recurrent episodes of syncope/near syncope. Apparently the patient has seizure-like activities followed by passing out spells. These episodes happens with or without any activities. She was admitted to the hospital on the of this month. She was taken off the metoprolol at the time of admission. She was found to have sinus pauses of more than 3 seconds, even today, in the early afternoon. I was asked to evaluate her for permanent pacemaker placement. She has some atypical chest discomfort. Had a Myocardial perfusion imaging on the and was essentially unremarkable. Denies any fever or chills. She is known to have COPD, emphysema and stage I cancer of the right lower lobe. She had a radiation treatment. She is on continuous oxygen. Review of Systems Narrative: CONSTITUTIONAL: No fever or chills. EYES: No blurring of vision or other visual disturbances lately. ENT: No hoarseness of voice, auditory disturbances or sore throat. CARDIOVASCULAR: As mentioned above. RESPIRATORY: Chronic cough and shortness of breath. Lung cancer, status post radiation treatment. Pulmonary hypertension/cor pulmonale GASTROINTESTINAL: No hematemesis or melena. GENITOURINARY: No dysuria or hematuria. INTEGUMENTARY: No skin rashes or history of skin cancer. NEURO: No transient ischemic attacks or amaurosis. PSYCHIATRIC: No history of psychosis or major depression. HEMATOLOGIC: No bleeding disorders or significant anemia. ENDOCRINE: No history of polyuria or polydipsia. MUSCULOSKELETAL: No recent joint pain or swelling. ALLERGY/IMMUNOLOGY: As mentioned above. Medications/Allergies Home Medications Medication Instructions Recorded Confirmed Last Taken Type buprenorphine 8 mg-naloxone 2 mg 1 film sublingual Q8H 12/04/19 05/21/23 08/06/21 History sublingual film (Suboxone) oxygen #1 ea 04/08/21 05/21/2321 Rx diphenhydramine HCl 25 mg capsule 25 mg PO BID PRN Allergy Symptoms 04/18/21 05/21/23 08/06/21 History (Benadryl) calcitriol 0.5 mcg capsule 0.5 mcg PO DAILY #90 caps 05/25/22 05/21/23 Unknown Rx (Rocaltrol) metoprolol tartrate 25 mg tablet See Rx Instructions .Route 01/19/23 05/21/23 Unknown Rx .COMPLEX #180 tabs atorvastatin 40 mg tablet 40 mg PO DAILY #90 tabs 02/16/23 05/21/23 Unknown Rx budesonide 0.5 mg/2 mL suspension 0.5 mg (2 mL) inhalation BID #120 03/02/23 05/21/23 Unknown Rx for nebulization mL formoterol fumarate 20 mcg/2 mL 2 ml inhalation BID #120 mL 03/02/23 05/21/23 Unknown Rx solution for nebulization ipratropium 0.5 mg-albuterol 3 mg 3 ml inhalation Q6H PRN wheezing 03/02/23 05/21/23 Unknown Rx (2.5 mg base)/3 mL nebulization #90 mL soln potassium chloride 20 mEq/15 mL 8 meq (6 mL) PO DAILY PRN 03/11/23 05/21/23 Unknown Rx oral liquid hypokalemia #1,800 mL magnesium 30 mg tablet 30 mg PO DAILY #90 tabs 04/01/23 05/21/23 Unknown Rx nitroglycerin 0.4 mg sublingual See Rx Instructions .Route 04/12/23 05/21/23 Unknown Rx tablet .COMPLEX #50 tabs levothyroxine 75 mcg capsule 75 mcg PO DAILY #30 caps 04/15/23 05/21/23 Unknown Rx roflumilast 500 mcg tablet 500 mcg PO DAILY #90 tabs 04/15/23 05/21/23 Unknown Rx (Daliresp) tizanidine 4 mg tablet 4 mg PO TID PRN Muscle Spasticity 04/15/23 05/21/23 Unknown Rx #90 tabs 2 inch toilet seat #1 ea 04/20/23 05/21/23 Unknown Rx albuterol sulfate 90 mcg/actuation See Rx Instructions .Route 04/27/23 05/21/23 Unknown Rx aerosol inhaler (Ventolin HFA) .COMPLEX #18 grams bumetanide 0.5 mg tablet 0.5 mg PO DAILY #30 tabs 05/17/23 05/21/23 Unknown Rx lidocaine 5 % topical patch 1 patch transdermal DAILY 05/21/23 05/21/23 Unknown History montelukast 4 mg chewable tablet 8 mg PO DAILY 05/21/23 05/21/23 Unknown History Allergies Allergy/AdvReac Type Severity Reaction Status Date / Time adhesive tape Allergy ALGY-Rash Verified 05/21/23 10:14 amitriptyline Allergy ALGY-Hives Verified 05/21/23 10:14 amoxicillin Allergy ALGY-Hives Verified 05/21/23 10:14 cefaclor [From Ceclor] Allergy ALGY-Difficulty Verified 05/21/23 10:14 Breathing ciprofloxacin [From Cipro] Allergy ALGY-Difficulty Verified 05/21/23 10:14 Breathing gabapentin Allergy ALGY-Hives Verified 05/21/23 10:14 ibuprofen Allergy ALGY-Hives Verified 05/21/23 10:14 metronidazole [From Flagyl] Allergy ALGY-Hives Verified 05/21/23 10:14 Penicillins Allergy ALGY-Hives Verified 05/21/23 10:14 Sulfa (Sulfonamide Allergy ALGY-Hives Verified 05/21/23 10:14 Antibiotics) tetracycline Allergy ALGY-Hives Verified 05/21/23 10:14 trimethoprim Allergy ALGY-Hives Verified 05/21/23 10:14 Current Medications Generic Name Dose Route Start Last Admin Trade Name Freq PRN Reason Stop Dose Admin Albuterol/Ipratropium 3 ml 05/23/23 08:00 05/24/23 14:11 Ipratropium-Albuterol 3 Ml Neb INHALATION 3 ml Q6H.RESP ALEXA Administration Alprazolam 0.5 mg 05/22/23 14:39 05/24/23 10:25 Alprazolam 0.5 Mg Tablet PO 0.5 mg TID PRN Administration ANXIETY Atorvastatin Calcium 40 mg 05/24/23 09:00 05/24/23 09:40 Atorvastatin 40 Mg Tablet PO 40 mg DAILY ALEXA Administration Budesonide 0.5 mg 05/23/23 20:00 05/24/23 09:16 Budesonide 0.5 Mg/2 Ml Neb INHALATION 0.5 mg BID.RESPIRATORY ALEXA Administration Buprenorphine/Naloxone 2 each 05/20/23 23:00 05/24/23 15:39 Buprenorphine-Naloxone 4-1 Mg Film SUBLINGUAL 2 each Q8H ALEXA Administration Calcitriol 0.5 mcg 05/21/23 09:00 05/24/23 09:39 Calcitriol 0.25 Mcg Capsule PO 0.5 mcg DAILY ALEXA Administration Cyanocobalamin 1,000 mcg 05/23/23 12:55 05/24/23 09:39 Cyanocobalamin 1,000 Mcg Tablet PO 1,000 mcg DAILY ALEXA Administration Famotidine 20 mg 05/23/23 18:00 05/24/23 09:40 Famotidine 20 Mg Tablet PO 20 mg BID ALEXA Administration Heparin Sodium (Porcine) 5,000 unit 05/23/23 13:00 05/24/23 12:24 Heparin 5,000 Unit/Ml Inj 1 Ml SUBCUT 5,000 unit Q12H ALEXA Administration Levothyroxine Sodium 75 mcg 05/21/23 09:00 05/24/23 09:40 Levothyroxine 75 Mcg Tablet PO 75 mcg DAILY ALEXA Administration Montelukast Sodium 10 mg 05/21/23 18:00 05/23/23 18:15 Montelukast Sodium 10 Mg Tablet PO 10 mg QPM ALEXA Administration Roflumilast 500 mcg 05/21/23 09:00 05/24/23 09:39 Roflumilast 500 Mcg Tablet PO 500 mcg DAILY ALEXA Administration Tizanidine HCl 4 mg 05/20/23 22:36 05/23/23 20:54 Tizanidine 4 Mg Tablet PO 4 mg TID PRN Administration Muscle Spasticity PFSH Acute PFSH: Medical History Atypical chest pain Patient had a cardiac catheterization in 2009 and was found to have no significant coronary disease. Atypical chest pain Benign essential hypertension CAD (coronary artery disease) CVA (cerebral vascular accident) Dyslipidemia (high LDL; low HDL) History of COPD Hx of carotid stenosis SOB (shortness of breath) Thyroid cancer Surgical History H/O thyroidectomy History of ankle surgery History of back surgery History of bilateral carpal tunnel release History of bronchoscopy History of hip surgery History of lumpectomy History of rectal surgery Hx of hysterectomy Port-A-Cath in place S/P hardware removal Spine Family History Brother Leukemia Diabetes Lung disease Mother Anesthesia complication CAD (coronary artery disease) Father Bleeding disorder Clotting disorder CAD (coronary artery disease) Cancer Stroke Sister CAD (coronary artery disease) Chronic kidney disease (CKD) Lung disease Family/Other Diabetes Stroke Grandfather Suicide Denies family history of Dementia Social History Smoking and tobacco status: current every day smoker (0.5 ppd) cigarettes Packs smoked per day: 0.5 Years cigarettes smoked: 55 [ Other cigarette details: Hx of 2 PPD x 50 Years, started at age 12] Quit status (tobacco): considering quitting Second hand smoke exposure: Yes Smoking risk assessment/counseling performed?: Yes Alcohol intake: never Desire information about alcohol rehabilitation?: No Counseling given: No Substance/Drug Use: never Desire information about substance/drug rehabilitation?: No Counseling given: No Adopted: No Lives independently: Yes Household members: none Housing: Apartment Marital status: / Current occupational status: disabled Do you think of yourself as: Straight/Heterosexual Current gender identity: Female Vitals/I&O/Wt Last Vital Signs Temp 97.8 F 05/24/23 16:00 Pulse 64 05/24/23 16:00 Resp 16 05/24/23 16:00 BP 120/73 05/24/23 16:00 Pulse Ox 97 05/24/23 14:00 O2 Del Method Nasal Cannula 05/24/23 16:00 O2 Flow Rate 2 05/24/23 14:00 05/24/23 05/24/23 05/24/23 06:59 14:59 22:59 Intake Total 120 / 120 220 / 340 Output Total 500 / 500 Balance -380 / -380 220 / -160 Physical Exam Narrative: GENERAL: Patient is short statured and thin frame. She is alert and oriented times three. Not in any acute distress. Has some chronic shortness of breath at rest HEENT: No significant pallor, icterus or lymphadenopathy.Oral cavity: There are no mucous membrane lesions. Patient apparently had a radical thyroidectomy. She has features of tissue loss in the lower part of the neck and subclavian reg ion with scarring. NECK: Trachea appears to be central. No masses noted. No JVD or thyromegaly appreciated. RESPIRATORY: Chest is symmetrica and emphysematous . Prominent neck veins in the upper chest. No intercostals muscle retraction or any accessory muscle activation. There is no chest wall tenderness. Breath sounds are heard bilaterally. Scattered expiratory wheezing. Diminished intensity breath sounds in the bases BREASTS: Deferred. HEART: The heart sounds are normal. No S3 or S4. Short systolic murmur in the left sternal border. No diastolic murmurs. No pericardial rub ABDOMEN: No vessel pulsations or distention. No tenderness. No organomegaly appreciated. Bowel sounds are normally heard. : Deferred. RECTAL: Deferred. LYMPHATIC: No lymphadenopathy noted in the neck. EXTREMITIES: No edema or cyanosis. No clubbing. MUSCULOSKELETAL: No acute joint deformities or swelling SKIN: There are no significant rashes or ecchymosis NEUROPSYCHIATRIC: The patient is alert and oriented x3. Has some generalized wasting. No focal neurologic deficit. Data 05/25/23 04:42 05/25/23 04:42 Other Labs: Laboratory Last Values WBC 6.0 10^3/uL (4.0-10.0) 05/25/23 04:42 RBC 3.22 10^6/uL (4.1-5.3) L 05/25/23 04:42 Hgb 9.4 g/dL (11.5-15.3) L 05/25/23 04:42 Hct 31.4 % (37.0-47.0) L 05/25/23 04:42 MCV 97.5 fl (81-99) 05/25/23 04:42 MCH 29.2 pg (28.0-34.0) 05/25/23 04:42 MCHC 29.9 g/dL (30.0-36.0) L 05/25/23 04:42 RDW 14.6 % (12.1-15.1) 05/25/23 04:42 Plt Count 151 10^3/cmm (130-400) 05/25/23 04:42 MPV 10.0 fL (7.4-10.4) 05/25/23 04:42 Neut % (Auto) 58.3 % 05/25/23 04:42 Lymph % (Auto) 24.5 % 05/25/23 04:42 Maury % (Auto) 10.1 % 05/25/23 04:42 Eos % (Auto) 5.8 % 05/25/23 04:42 Baso % (Auto) 0.8 % 05/25/23 04:42 Neut # (Auto) 3.50 10^3/uL (1.8-7.7) 05/25/23 04:42 Lymph # (Auto) 1.5 10^3/uL (0.8-4.8) 05/25/23 04:42 Maury # (Auto) 0.6 10^3/uL (0.2-0.9) 05/25/23 04:42 Eos # (Auto) 0.4 10^3/uL (0.0-0.8) 05/25/23 04:42 Baso # (Auto) 0.1 10^3/uL (0.0-0.1) 05/25/23 04:42 Nucleated RBC % (auto) 0 % 05/25/23 04:42 Nucleated RBCs # 0.0 /100WBC 05/25/23 04:42 PT 14.70 SECONDS (12.1-14.9) 05/20/23 19:28 INR 1.11 (0.8-1.2) 05/20/23 19:28 D-Dimer 0.63 ug/mIFEU (0-0.59) H 05/20/23 20:44 Sodium 141 mmol/L (136-145) 05/25/23 04:42 Potassium 4.3 mmol/L (3.5-5.1) 05/25/23 04:42 Chloride 100 mmol/L (98-107) 05/25/23 04:42 Carbon Dioxide 33 mmol/L (22-29) H 05/25/23 04:42 Anion Gap 12.3 (5-19) 05/25/23 04:42 BUN 15 mg/dL (8-23) 05/25/23 04:42 Creatinine 0.7 mg/dL (0.5-0.9) 05/25/23 04:42 GFR Calculation Not Reportable 05/25/23 04:42 Glucose 94 mg/dL (65-115) 05/25/23 04:42 Estimat Average Glucose 97 05/24/23 03:01 Hemoglobin A1c 5.0 % (4.0-6.0) 05/24/23 03:01 Calculated Osmolality 293 mOsm/kg (285-295) 05/25/23 04:42 Calcium 9.3 mg/dL (8.5-10.5) 05/25/23 04:42 Magnesium 1.9 mg/dL (1.7-2.3) 05/24/23 03:01 Iron 60 ug/dL (37-145) 05/23/23 02:03 TIBC 229 mcg/dl 05/23/23 02:03 % Saturation 26.2 % (20-50) 05/23/23 02:03 Unsat Iron Binding 169 ug/dL (112-347) 05/23/23 02:03 Total Bilirubin 0.2 mg/dL (0.15-1.2) 05/25/23 04:42 AST 26 U/L (0-32) 05/25/23 04:42 ALT 15 U/L (0-33) 05/25/23 04:42 Alkaline Phosphatase 108 U/L (35-105) H 05/25/23 04:42 Troponin T Gen 5 ng/L 16 ng/L (0-10) H 05/22/23 20:39 Troponin T Baseline 14 ng/L (0-10) H 05/20/23 19:28 Troponin T 120 Minute 14.90 ng/L (0-10) H 05/20/23 20:44 Delta Troponin T 0.90 ABS# (0-10) 05/20/23 20:44 Troponin T Hi Sens 6Hr 15.64 ng/L (0-10) H 05/21/23 01:49 Troponin T Hi Sens 6Hr Delta 1.64 ng/L (0-12) 05/21/23 01:49 NT-Pro-B Natriuret Pep 630 pg/mL (0-125) H 05/20/23 19:28 Total Protein 6.1 g/dL (6.6-8.7) L 05/25/23 04:42 Albumin 3.6 g/dL (3.5-5.2) 05/25/23 04:42 Globulin 2.5 g/dL (1.3-4.6) 05/25/23 04:42 Vitamin B12 290 pg/mL (232-1245) 05/23/23 02:03 Folate 5.6 ng/mL (4.8-37.3) 05/24/23 03:01 Procalcitonin 0.02 ng/mL (0-0.5) 05/20/23 20:44 TSH 1.03 uIU/mL (0.27-4.20) 05/20/23 20:44 EKG 1: My Interpretation: Sinus rhythm with a sinus arrhythmia. No acute ST-T changes. Other data: Carotid Doppler examination Bilateral ICA stenosis less than 50%. ?Moderate diffuse atherosclerotic plaque. CTA of the chest 1. There is no evidence for pulmonary emboli. 2. Background of centrilobular emphysema and pulmonary fibrosis. 3. Lobulated pulmonary nodularity within the right lower lobe measuring up to 2.3 cm. For both low risk and high risk patients, consider CT Chest at 3 months, PET/CT, or biopsy. (Reference: [facility]) CXR Bilateral emphysema Normal cardiac silhouette. No acute lung infiltrate A&P Assessment and plan (1) Recurrent syncope: Patient was found to have episodes of sinus pauses. Features are suggesting sinus mazin dysfunction. Most likely this might be causing the syncopal episodes. However she also has some seizure-like activity. This may need to be further evaluated. (2) Sinus node dysfunction: As mentioned above. The sinus pauses seem to be persisting even after discontinuing the beta-kapil for several days. In view of this, patient may benefit from a permanent pacemaker. (3) Seizure-like activity: The etiology is not clear. This needs to be further evaluated. (4) Chronic respiratory failure with hypoxia: Patient is on chronic oxygen (5) COPD (chronic obstructive pulmonary disease): As mentioned above Qualifiers: COPD type: emphysema Emphysema type: panlobular Qualified Code(s): J43.1 - Panlobular emphysema (6) Hx of carotid stenosis: The carotid duplex examination revealed moderate carotid artery disease with less than 50% stenosis (7) Benign essential hypertension: Currently normotensive. (8) Dyslipidemia (high LDL; low HDL): Plan Agree with a permanent pacemaker, for further management of her condition. In view of her history of her radical neck surgery, prominent neck veins around the upper chest, she may have some technical difficulties with the subclavian access. A leadless pacemaker would be a better option. I will be discussing this with Dr. Solomon and we will make a final decision. May continue with the close monitoring for the time being Consult Attestations Medical Necessity Statement: Deferred to the primary Coding Level of Care Code 72435 Diagnoses Recurrent syncope R55 Sinus node dysfunction I49.5 Seizure-like activity R56.9 Chronic respiratory failure with hypoxia J96.11 COPD (chronic obstructive pulmonary disease) J43.1 COPD type: emphysema Emphysema type: panlobular Hx of carotid stenosis Z86.79 Benign essential hypertension I10 Dyslipidemia (high LDL; low HDL) E78.5
[2023-05-24] MEDS: montelukast sodium 10 mg Tablet PO (18:13)
[2023-05-24] MEDS: tizanidine 4 mg Tablet PO (18:13)
--- NOTE | 2023-05-24 18:28 | PM.PN ---
Subjective Subjective: Patient was started on low-dose metoprolol as he was having his significant tachycardia. She again started having pauses close to 3 seconds long. Vitals/I&O/Wt Last Vital Signs Temp 97.8 F 05/24/23 16:00 Pulse 64 05/24/23 16:00 Resp 16 05/24/23 16:00 BP 120/73 05/24/23 16:00 Pulse Ox 97 05/24/23 14:00 O2 Del Method Nasal Cannula 05/24/23 16:00 O2 Flow Rate 2 05/24/23 14:00 05/24/23 05/24/23 05/24/23 06:59 14:59 22:59 Intake Total 120 / 120 220 / 340 Output Total 500 / 500 Balance -380 / -380 220 / -160 Physical Exam Narrative: GENERAL: Patient is alert, awake and oriented x3. [] NECK: No jugular vein distension. [] HEENT: No cyanosis. No icterus. No pallor. [] HEART: Regular S1 and S2. Has grade 2/6 diastolic murmur and 3/6 systolic murmur LUNGS: Clear to auscultate bilaterally. [] ABDOMEN: Soft CENTRAL NERVOUS SYSTEM: Grossly nonfocal. [] EXTREMITIES: Lower extremities with 1+ edema bilaterally. Pulses palpable in the lower extremities, both dorsalis pedis and posterior tibial. [] Data 05/24/23 03:01 05/24/23 03:01 A&P Assessment and plan (1) Bradycardia: (2) Sinus pause: (3) Syncopal episodes: (4) COPD (chronic obstructive pulmonary disease): Qualifiers: COPD type: emphysema Emphysema type: panlobular Qualified Code(s): J43.1 - Panlobular emphysema (5) Dyslipidemia (high LDL; low HDL): Plan Patient again started having pauses today on metoprolol 12.5 mg twice daily. She has tachybrady syndrome. We will recommend pacemaker placement. Stress test not showing significant ischemia. Medical therapy. Thank you for involving us with care of this patient. We will continue to follow. Please call with questions Attestations Medical Necessity Statement*: Care expected to cross 2 midnights. Coding Level of Care Code Acute Code for [facility] Diagnoses Bradycardia R00.1 Sinus pause I45.5 Syncopal episodes R55 COPD (chronic obstructive pulmonary disease) J43.1 COPD type: emphysema Emphysema type: panlobular Dyslipidemia (high LDL; low HDL) E78.5
[2023-05-25] VITALS (12 sets, daily range): BP systolic 121–156; BP diastolic 70–92; PULSE 74–110; RESP 13–28; TEMP 35.8–36.7; O2SAT 96–100
[2023-05-25] MEDS: ALPRAZolam 0.5 mg Tablet PO ×3 (04:02→22:47)
[2023-05-25 04:56] LABS: Basophils # 0.1 10^3/uL (0.0-0.1); Basophils % 0.8 %; Eosinophils # 0.4 10^3/uL (0.0-0.8); Eosinophils % 5.8 %; Hematocrit 31.4 % (37.0-47.0); Hemoglobin 9.4 g/dL (11.5-15.3); Lymphocytes # 1.5 10^3/uL (0.8-4.8); Lymphocytes % 24.5 %; Mean Corpuscular HGB Conc 29.9 g/dL (30.0-36.0); Mean Corpuscular Hemoglobin 29.2 pg (28.0-34.0); Mean Corpuscular Volume 97.5 fl (81-99); Monocytes # 0.6 10^3/uL (0.2-0.9); Monocytes % 10.1 %; Neutrophils % 58.3 %; Nucleated Red Blood Cells % 0 %; Platelet Count 151 10^3/cmm (130-400); Red Blood Count 3.22 10^6/uL (4.1-5.3); Red Cell Distribution Width 14.6 % (12.1-15.1)
[2023-05-25 05:14] LABS: Alanine Aminotransferase 15 U/L (0-33); Albumin Level 3.6 g/dL (3.5-5.2); Alkaline Phosphatase 108 U/L (35-105); Anion Gap 12.3 (5-19); Aspartate Amino Transferase 26 U/L (0-32); Blood Urea Nitrogen 15 mg/dL (8-23); Calcium 9.3 mg/dL (8.5-10.5); Carbon Dioxide 33 mmol/L (22-29); Chloride 100 mmol/L (98-107); Globulin 2.5 g/dL (1.3-4.6); Glucose 94 mg/dL (65-115); Osmolality Calculated 293 mOsm/kg (285-295); Potassium 4.3 mmol/L (3.5-5.1); Sodium 141 mmol/L (136-145); Total Bilirubin 0.2 mg/dL (0.15-1.2); Total Protein 6.1 g/dL (6.6-8.7)
[2023-05-25] MEDS: buprenorphine-naloxone 4-1 mg Film 2 EACH SUBLINGUAL ×3 (07:04→22:39)
[2023-05-25] MEDS: budesonide 0.5 mg/2 mL Neb INHALATION ×2 (07:44→20:10)
[2023-05-25] MEDS: ipratropium-albuterol 3 mL Neb INHALATION ×2 (07:44→20:10)
[2023-05-25] MEDS: calcitriol 0.25 mcg Capsule 0.5 MCG PO (08:26)
[2023-05-25] MEDS: roflumilast 500 mcg Tablet PO (08:26)
[2023-05-25] MEDS: cyanocobalamin 1,000 mcg Tablet 1000 MCG PO (08:26)
[2023-05-25] MEDS: atorvastatin 40 mg Tablet PO (08:26)
[2023-05-25] MEDS: levothyroxine 75 mcg Tablet PO (08:26)
[2023-05-25] MEDS: tizanidine 4 mg Tablet PO ×2 (08:26→17:29)
[2023-05-25] MEDS: heparin 5,000 unit/mL INJ 1 mL 5000 UNIT SUBCUT (12:16)
--- NOTE | 2023-05-25 13:42 | PM.PN ---
Subjective Subjective: Overnight patient continued to have episodes of pauses on telemetry with longest at around 3 seconds. Patient was symptomatic with dizziness, lightheadedness and nausea without any episodes of syncope or presyncope. Today morning on examination sitting up at side of the bed, denying any further complaints. Continues to be in sinus rhythm for now. Remains on baseline nasal cannula. Patient complaining of increased back pain. Seems mildly anxious today. Blood work done appreciated for a stable CBC and CMP with bicarb up from 33 which seems to be patient's baseline. Vitals/I&O/Wt Last Vital Signs Temp 97.9 F 05/25/23 12:00 Pulse 97 05/25/23 12:00 Resp 17 05/25/23 12:00 BP 121/84 05/25/23 12:00 Pulse Ox 97 05/25/23 12:00 O2 Del Method Nasal Cannula 05/25/23 12:00 O2 Flow Rate 2 05/25/23 07:45 05/24/23 05/25/23 05/25/23 22:59 06:59 14:59 Intake Total 580 / 700 440 / 440 Output Total 250 / 750 250 / 1000 Balance 330 / -50 -250 / -300 440 / 440 Physical Exam Narrative: General: No acute distress, AO x3, NC oxygen supplementation HEENT: PERRLA, pupils bilaterally equal and reactive Chest:Bronchial breath sounds b/l, occasional rhonchi all over the lung mata CVS: S1-S2 regular, no murmurs, no tachycardia, no gallops, no rubs Abdomen: Soft, nontender, no organomegaly, bowel sounds present, morbidly obese Neuro: No focal deficits, no facial deformity, AO x3, power 5/5 in all limbs Data 05/25/23 04:42 05/25/23 04:42 A&P Assessment and plan (1) Syncopal episodes: (2) Sinus pause: (3) Bradycardia: (4) COPD (chronic obstructive pulmonary disease): Qualifiers: COPD type: emphysema Emphysema type: panlobular Qualified Code(s): J43.1 - Panlobular emphysema (5) Lung cancer: Qualifiers: Laterality: unspecified laterality Lung location: unspecified part of lung Qualified Code(s): C34.90 - Malignant neoplasm of unspecified part of unspecified bronchus or lung Plan 73-year-old female who presented with chief complaint recurrent syncopal events found to be having bradycardia with sinus pauses on admission. Syncope: Most likely in setting of bradycardia with sinus pauses. ACS ruled out with negative troponin and Lexiscan stress test. Carotid Doppler done recently in March 2023 appreciated for bilateral less than 50%. CT head done earlier in April negative for any acute abnormality. D-dimer on admission 0.63 which is negative when correlated with age and is on the lower side since last checked in June. Echocardiogram done shows normal EF without any wall motion abnormality with moderate AI, moderate TR and moderate pulmonary hypertension. Sinus pauses with Symptomatic bradycardia: Bradycardia had resolved after withholding home dose of beta-kapil with resolution of sinus pauses and patient converted to sinus tachycardia. On low-dose of beta-kapil patient has started having problems again. High concerns for sick sinus syndrome. Appreciate cardiology recommendations. Plan for pacemaker implantation. Care discussed in detail with Dr. Jang. Given concerns for emphysema considering possible leadless pacemaker. Will await further recommendations. Continue to hold off on beta-blockers. 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 Target potassium, magnesium level above 4 and 2 respectively. Hold off on oral magnesium supplementation for now. Repeat again in morning. History of lung cancer status post radiotherapy, patient has stage I lung cancer right lower lobe, stable lesion status post radiotherapy, non-small cell cancer however definitive diagnosis could not be reached because of inadequate sampling Patient carries history of thyroid cancer, laryngeal cancer COPD: Requires oxygen 2 L at baseline, patient uses Spiriva and Advair No active exacerbation for now. Continue with home dose of steroid as needed. DuoNeb every 6 hour, Pulmicort twice daily while in house. Full code Start on Pepcid for PUD prophylaxis Start on heparin 5000 every 12 hourly for DVT prophylaxis. Cardiac diet Continue with CSU care. Telemetry monitoring. Start incentive spirometry. Discharge planning: Plan to discharge home with caregiver post pacemaker implantation. Care discussed in detail with patient at bedside. We discussed unfortunately patient is developed significant sinus pauses again on telemetry on initiation of lowest possible dose of beta-kapil without beta-kapil she goes into sinus tachycardia. Patient Giurgius Is agreeable for pacemaker implantation. Attestations Medical Necessity Statement*: Requires further hospitalization for pacemaker implantation in setting of symptomatic bradycardia with sinus pause. Diagnoses Syncopal episodes R55 Sinus pause I45.5 Bradycardia R00.1 COPD (chronic obstructive pulmonary disease) J43.1 COPD type: emphysema Emphysema type: panlobular Lung cancer C34.90 Laterality: unspecified laterality Lung location: unspecified part of lung
[2023-05-25] MEDS: montelukast sodium 10 mg Tablet PO (17:29)
--- NOTE | 2023-05-25 19:45 | P.PN_ITS ---
Subjective Subjective: Patient was found to have episodes of bradycardia with a heart rate in the 30s and 40s on the monitor. She also was found to have pauses of more than 3 seconds. Complaints of feeling tired and weak. No chest pain. No fever, chills or cough Medications: Medication Review Details: Current Medications Acetaminophen (Acetaminophen 500 Mg Tablet) 500 mg PO Q4H PRN PRN Reason: fever Albuterol/Ipratropium (Ipratropium-Albuterol 3 Ml Neb) 3 ml INHALATION Q6H.RESP ALEXA Last Admin: 05/25/23 16:22 Dose: Not Given Alprazolam (Alprazolam 0.5 Mg Tablet) 0.5 mg PO TID PRN PRN Reason: ANXIETY Last Admin: 05/25/23 14:44 Dose: 0.5 mg Atorvastatin Calcium (Atorvastatin 40 Mg Tablet) 40 mg PO DAILY ALEXA Last Admin: 05/25/23 08:26 Dose: 40 mg Budesonide (Budesonide 0.5 Mg/2 Ml Neb) 0.5 mg INHALATION BID.RESPIRATORY ALEXA Last Admin: 05/25/23 07:44 Dose: 0.5 mg Buprenorphine/Naloxone (Buprenorphine-Naloxone 4-1 Mg Film) 2 each SUBLINGUAL Q8H ALEXA Last Admin: 05/25/23 14:32 Dose: 2 each Calcitriol (Calcitriol 0.25 Mcg Capsule) 0.5 mcg PO DAILY ALEXA Last Admin: 05/25/23 08:26 Dose: 0.5 mcg Cyanocobalamin (Cyanocobalamin 1,000 Mcg Tablet) 1,000 mcg PO DAILY ALEXA Last Admin: 05/25/23 08:26 Dose: 1,000 mcg Famotidine (Famotidine 20 Mg Tablet) 20 mg PO BID ALEXA Last Admin: 05/25/23 17:18 Dose: Not Given Heparin Sodium (Porcine) (Heparin 5,000 Unit/Ml Inj 1 Ml) 5,000 unit SUBCUT Q1 2H ALEXA Last Admin: 05/25/23 12:16 Dose: 5,000 unit Levothyroxine Sodium (Levothyroxine 75 Mcg Tablet) 75 mcg PO DAILY ALEXA Last Admin: 05/25/23 08:26 Dose: 75 mcg Montelukast Sodium (Montelukast Sodium 10 Mg Tablet) 10 mg PO QPM ALEXA Last Admin: 05/25/23 17:29 Dose: 10 mg Ondansetron HCl (Ondansetron 2 Mg/Ml Sdv 2 Ml) 4 mg IVP Q6H PRN PRN Reason: NAUSEA AND VOMITING Prednisone (Prednisone 10 Mg Tablet) 10 mg PO DAILY PRN PRN Reason: sob Roflumilast (Roflumilast 500 Mcg Tablet) 500 mcg PO DAILY ALEXA Last Admin: 05/25/23 08:26 Dose: 500 mcg Tizanidine HCl (Tizanidine 4 Mg Tablet) 4 mg PO TID PRN PRN Reason: Muscle Spasticity Last Admin: 05/25/23 17:29 Dose: 4 mg Vitals/I&O/Wt Last Vital Signs Temp 98.0 F 05/25/23 16:00 Pulse 98 05/25/23 16:00 Resp 13 05/25/23 16:00 BP 152/77 05/25/23 16:00 Pulse Ox 97 05/25/23 16:00 O2 Del Method Nasal Cannula 05/25/23 16:00 O2 Flow Rate 2 05/25/23 07:45 05/25/23 05/25/23 05/25/23 06:59 14:59 22:59 Intake Total 560 / 560 Output Total 250 / 1000 Balance -250 / -300 560 / 560 Physical Exam Narrative: GENERAL: The patient is alert and oriented times three. Not in any acute distress. HEENT: No significant pallor, icterus or lymphadenopathy.Oral cavity: There are no mucous membrane lesions. NECK: Trachea appears to be central. No masses noted. No JVD or thyromegaly appreciated. Port-A-Cath placement on the right side RESPIRATORY: Chest is symmetrical. No intercostals muscle retraction or any accessory muscle activation. There is no chest wall tenderness. Breath sounds are heard bilaterally. Scattered wheezes. Diminished intensity breath sounds at the bases. No evidence of any consolidation. BREASTS: Deferred. HEART: The heart sounds are normal. No S3 or S4. Short systolic murmur in the left sternal border. No pericardial rub ABDOMEN: No vessel pulsations or distention. No tenderness. No organomegaly appreciated. Bowel sounds are normally heard. : Deferred. RECTAL: Deferred. LYMPHATIC: No lymphadenopathy noted in the neck. EXTREMITIES: No edema or cyanosis. No clubbing. MUSCULOSKELETAL: No acute joint deformities or swelling SKIN: There are no significant rashes or ecchymosis NEUROPSYCHIATRIC: The patient is alert and oriented x3. Appears to be in a good mood. No tremors or rigidity noted. Data 05/26/23 01:07 05/26/23 01:07 A&P Assessment and plan (1) Recurrent syncope: Patient was found to have episodes of sinus pauses. Features are suggesting sinus mazin dysfunction. Most likely this might be causing the syncopal episodes. No recurrence of seizures or syncope since the hospital admission (2) Sinus node dysfunction: As mentioned above. The sinus pauses seem to be persisting even after discontinuing the beta-kapil for several days. In view of this, patient may benefit from a permanent pacemaker. (3) Seizure-like activity: The etiology is not clear. (4) Chronic respiratory failure with hypoxia: Patient is on chronic oxygen (5) COPD (chronic obstructive pulmonary disease): As mentioned above Qualifiers: COPD type: emphysema Emphysema type: panlobular Qualified Code(s): J43.1 - Panlobular emphysema (6) Hx of carotid stenosis: The carotid duplex examination revealed moderate carotid artery disease with less than 50% stenosis (7) Benign essential hypertension: Currently normotensive. (8) Dyslipidemia (high LDL; low HDL): Plan Agree with a permanent pacemaker, for further management of her condition. In view of her history ofradical neck surgery, prominent neck veins around the upper chest, she may have some technical difficulties with the subclavian access. She has Port-A-Cath placement on the right side A leadless pacemaker would be a better option. I consulted Dr. Solomon to consider the leadless pacemaker Attestations Medical Necessity Statement*: Patient requires continued hospital stay for close monitoring and further management Coding Level of Care Code 25761 Diagnoses Recurrent syncope R55 Sinus node dysfunction I49.5 Seizure-like activity R56.9 Chronic respiratory failure with hypoxia J96.11 COPD (chronic obstructive pulmonary disease) J43.1 COPD type: emphysema Emphysema type: panlobular Hx of carotid stenosis Z86.79 Benign essential hypertension I10 Dyslipidemia (high LDL; low HDL) E78.5
[2023-05-26] VITALS (14 sets, daily range): BP systolic 125–146; BP diastolic 59–85; PULSE 77–116; RESP 16–26; TEMP 36.4–36.9; O2SAT 96–100
[2023-05-26 01:42] LABS: Basophils % 0.2 %; Eosinophils # 0.2 10^3/uL (0.0-0.8); Eosinophils % 3.7 %; Hematocrit 31.7 % (37.0-47.0); Hemoglobin 9.5 g/dL (11.5-15.3); Lymphocytes # 1.1 10^3/uL (0.8-4.8); Lymphocytes % 19.3 %; Mean Corpuscular Hemoglobin 28.6 pg (28.0-34.0); Mean Corpuscular Volume 95.5 fl (81-99); Mean Platelet Volume 10.3 fL (7.4-10.4); Monocytes # 0.6 10^3/uL (0.2-0.9); Monocytes % 9.9 %; Neutrophils # 3.91 10^3/uL (1.8-7.7); Neutrophils % 66.6 %; Nucleated Red Blood Cells % 0 %; Platelet Count 132 10^3/cmm (130-400); Red Blood Count 3.32 10^6/uL (4.1-5.3); Red Cell Distribution Width 14.5 % (12.1-15.1); White Blood Count 5.9 10^3/uL (4.0-10.0)
[2023-05-26 01:58] LABS: Alanine Aminotransferase 22 U/L (0-33); Albumin Level 3.6 g/dL (3.5-5.2); Alkaline Phosphatase 108 U/L (35-105); Anion Gap 10.1 (5-19); Aspartate Amino Transferase 36 U/L (0-32); Blood Urea Nitrogen 11 mg/dL (8-23); Calcium 9.4 mg/dL (8.5-10.5); Carbon Dioxide 34 mmol/L (22-29); Chloride 99 mmol/L (98-107); Globulin 2.4 g/dL (1.3-4.6); Glucose 87 mg/dL (65-115); Osmolality Calculated 287 mOsm/kg (285-295); Potassium 4.1 mmol/L (3.5-5.1); Sodium 139 mmol/L (136-145); Total Bilirubin 0.3 mg/dL (0.15-1.2)
--- NOTE | 2023-05-26 07:18 | PM.CONSULT ---
Providers/Reason For Consult Consulting Physician/Specialty*: Dr. Solomon/cardiothoracic surgery Reason for Consult*: Request for pacemaker implantation Requesting Physician: Dr. Salmon Attending Physician: Chet Bowman MD Primary Care Provider: Fei Laura DO History of Present Illness History of Present Illness Sakina Lombardi is a 73 year old female with multiple medical problems who was admitted on May 20 for a history of recurrent falls which are felt to be secondary to syncope. She denied chest pain or shortness of breath with these episodes. She was mildly bradycardic upon presentation. Beta-kapil was discontinued. Consultation was made with cardiology and was initially evaluated by Dr. Wills and then most recently by Dr. Salmon. Ms. Lombardi describes the syncopal episodes occurring intermittently for several months and at presentation was found to be bradycardic with sinus pauses. She had been on metoprolol 25 mg twice daily. Most recent echo revealed normal LV function. She does have pulmonary hypertension. After discontinuation of beta-blockade she did have 1 documented episode of a sinus pauses up to 3 seconds. This particular episode was asymptomatic. Within the next 24 hours after initial consultation with cardiology, she was noted to have some tachycardia it was felt that low-dose beta-kapil would be benefit and this was reinitiated. With resumption of the beta-kapil at a lower dose than upon presentation, she had further episodes of sinus pauses up to near 3 seconds, which were associated with some dizziness. Nuclear stress testing was performed and revealed no evidence for ongoing coronary ischemia. She appears to have enhancing artifact toward the apex. Consultation was made with Dr. Salmon who felt Ms. Lombardi would benefit from a pacemaker. Related to her prior history for neck irradiation as part of her treatment for thyroid cancer as well as stereotactic radiation related to lung cancer, he felt patient to be considered for a leadless device. Therefore I was consulted. I have visited with her yesterday afternoon and again this morning with her son, without pauses being noted. Her most recent chest x-ray is unremarkable. Unfortunately, she continues to smoke. Review of Systems Const: Reports: fatigue; Denies: fever(s) or chills Eyes: Denies: change in vision Card: Reports: palpitations and pre-syncope; Denies: chest pain Resp: Reports: dyspnea, non-productive cough and wheezing GI: Reports: abdominal pain; Denies: nausea, vomiting or hematemesis Musc: Reports: back pain Neuro: Reports: frequent falls and dizziness; Denies: headache(s) or numbness in extremities Psych: Denies: anxiety or depression Medications/Allergies Home Medications Medication Instructions Recorded Confirmed Last Taken Type buprenorphine 8 mg-naloxone 2 mg 1 film sublingual Q8H 12/04/19 05/21/23 08/06/21 History sublingual film (Suboxone) oxygen #1 ea 04/08/21 05/21/23 04/21/21 Rx diphenhydramine HCl 25 mg capsule 25 mg PO BID PRN Allergy Symptoms 04/18/21 05/21/23 08/06/21 History (Benadryl) calcitriol 0.5 mcg capsule 0.5 mcg PO DAILY #90 caps 05/25/22 05/21/23 Unknown Rx (Rocaltrol) metoprolol tartrate 25 mg tablet See Rx Instructions .Route 01/19/23 05/21/23 Unknown Rx .COMPLEX #180 tabs atorvastatin 40 mg tablet 40 mg PO DAILY #90 tabs 02/16/23 05/21/23 Unknown Rx budesonide 0.5 mg/2 mL suspension 0.5 mg (2 mL) inhalation BID #120 03/02/23 05/21/23 Unknown Rx for nebulization mL formoterol fumarate 20 mcg/2 mL 2 ml inhalation BID #120 mL 03/02/23 05/21/23 Unknown Rx solution for nebulization ipratropium 0.5 mg-albuterol 3 mg 3 ml inhalation Q6H PRN wheezing 03/02/23 05/21/23 Unknown Rx (2.5 mg base)/3 mL nebulization #90 mL soln potassium chloride 20 mEq/15 mL 8 meq (6 mL) PO DAILY PRN 03/11/23 05/21/23 Unknown Rx oral liquid hypokalemia #1,800 mL magnesium 30 mg tablet 30 mg PO DAILY #90 tabs 04/01/23 05/21/23 Unknown Rx nitroglycerin 0.4 mg sublingual See Rx Instructions .Route 04/12/23 05/21/23 Unknown Rx tablet .COMPLEX #50 tabs levothyroxine 75 mcg capsule 75 mcg PO DAILY #30 caps 04/15/23 05/21/23 Unknown Rx roflumilast 500 mcg tablet 500 mcg PO DAILY #90 tabs 04/15/23 05/21/23 Unknown Rx (Daliresp) tizanidine 4 mg tablet 4 mg PO TID PRN Muscle Spasticity 04/15/23 05/21/23 Unknown Rx #90 tabs 2 inch toilet seat #1 ea 04/20/23 05/21/23 Unknown Rx albuterol sulfate 90 mcg/actuation See Rx Instructions .Route 04/27/23 05/21/23 Unknown Rx aerosol inhaler (Ventolin HFA) .COMPLEX #18 grams bumetanide 0.5 mg tablet 0.5 mg PO DAILY #30 tabs 05/17/23 05/21/23 Unknown Rx lidocaine 5 % topical patch 1 patch transdermal DAILY 05/21/23 05/21/23 Unknown History montelukast 4 mg chewable tablet 8 mg PO DAILY 05/21/23 05/21/23 Unknown History Allergies Allergy/AdvReac Type Severity Reaction Status Date / Time adhesive tape Allergy ALGY-Rash Verified 05/21/23 10:14 amitriptyline Allergy ALGY-Hives Verified 05/21/23 10:14 amoxicillin Allergy ALGY-Hives Verified 05/21/23 10:14 cefaclor [From Ceclor] Allergy ALGY-Difficulty Verified 05/21/23 10:14 Breathing ciprofloxacin [From Cipro] Allergy ALGY-Difficulty Verified 05/21/23 10:14 Breathing gabapentin Allergy ALGY-Hives Verified 05/21/23 10:14 ibuprofen Allergy ALGY-Hives Verified 05/21/23 10:14 metronidazole [From Flagyl] Allergy ALGY-Hives Verified 05/21/23 10:14 Penicillins Allergy ALGY-Hives Verified 05/21/23 10:14 Sulfa (Sulfonamide Allergy ALGY-Hives Verified 05/21/23 10:14 Antibiotics) tetracycline Allergy ALGY-Hives Verified 05/21/23 10:14 trimethoprim Allergy ALGY-Hives Verified 05/21/23 10:14 Current Medications Generic Name Dose Route Start Last Admin Trade Name Freq PRN Reason Stop Dose Admin Albuterol/Ipratropium 3 ml 05/23/23 08:00 05/26/23 02:50 Ipratropium-Albuterol 3 Ml Neb INHALATION Not Given Q6H.RESP ALEXA Alprazolam 0.5 mg 05/22/23 14:39 05/25/23 22:47 Alprazolam 0.5 Mg Tablet PO 0.5 mg TID PRN Administration ANXIETY Atorvastatin Calcium 40 mg 05/24/23 09:00 05/25/23 08:26 Atorvastatin 40 Mg Tablet PO 40 mg DAILY ALEXA Administration Budesonide 0.5 mg 05/23/23 20:00 05/25/23 20:10 Budesonide 0.5 Mg/2 Ml Neb INHALATION 0.5 mg BID.RESPIRATORY ALEXA Administration Buprenorphine/Naloxone 2 each 05/20/23 23:00 05/25/23 22:39 Buprenorphine-Naloxone 4-1 Mg Film SUBLINGUAL 2 each Q8H ALEXA Administration Calcitriol 0.5 mcg 05/21/23 09:00 05/25/23 08:26 Calcitriol 0.25 Mcg Capsule PO 0.5 mcg DAILY ALEXA Administration Cyanocobalamin 1,000 mcg 05/23/23 12:55 05/25/23 08:26 Cyanocobalamin 1,000 Mcg Tablet PO 1,000 mcg DAILY ALEXA Administration Famotidine 20 mg 05/23/23 18:00 05/25/23 17:18 Famotidine 20 Mg Tablet PO Not Given BID ALEXA Heparin Sodium (Porcine) 5,000 unit 05/23/23 13:00 05/26/23 03:12 Heparin 5,000 Unit/Ml Inj 1 Ml SUBCUT Not Given Q12H ALEXA Levothyroxine Sodium 75 mcg 05/21/23 09:00 05/25/23 08:26 Levothyroxine 75 Mcg Tablet PO 75 mcg DAILY ALEXA Administration Montelukast Sodium 10 mg 05/21/23 18:00 05/25/23 17:29 Montelukast Sodium 10 Mg Tablet PO 10 mg QPM ALEXA Administration Roflumilast 500 mcg 05/21/23 09:00 05/25/23 08:26 Roflumilast 500 Mcg Tablet PO 500 mcg DAILY ALEXA Administration Tizanidine HCl 4 mg 05/20/23 22:36 05/25/23 17:29 Tizanidine 4 Mg Tablet PO 4 mg TID PRN Administration Muscle Spasticity PFSH Acute PFSH: Medical History Atypical chest pain Patient had a cardiac catheterization in 2009 and was found to have no significant coronary disease. Atypical chest pain Benign essential hypertension CAD (coronary artery disease) CVA (cerebral vascular accident) Dyslipidemia (high LDL; low HDL) History of COPD Hx of carotid stenosis SOB (shortness of breath) Thyroid cancer Surgical History H/O thyroidectomy History of ankle surgery History of back surgery History of bilateral carpal tunnel release History of bronchoscopy History of hip surgery History of lumpectomy History of rectal surgery Hx of hysterectomy Port-A-Cath in place S/P hardware removal Spine Family History Brother Leukemia Diabetes Lung disease Mother Anesthesia complication CAD (coronary artery disease) Father Bleeding disorder Clotting disorder CAD (coronary artery disease) Cancer Stroke Sister CAD (coronary artery disease) Chronic kidney disease (CKD) Lung disease Family/Other Diabetes Stroke Grandfather Suicide Denies family history of Dementia Social History Smoking and tobacco status: current every day smoker (0.5 ppd) cigarettes Packs smoked per day: 0.5 Years cigarettes smoked: 55 [ Other cigarette details: Hx of 2 PPD x 50 Years, started at age 12] Quit status (tobacco): considering quitting Second hand smoke exposure: Yes Smoking risk assessment/counseling performed?: Yes Alcohol intake: never Desire information about alcohol rehabilitation?: No Counseling given: No Substance/Drug Use: never Desire information about substance/drug rehabilitation?: No Counseling given: No Adopted: No Lives independently: Yes Household members: none Housing: Apartment Marital status: / Current occupational status: disabled Do you think of yourself as: Straight/Heterosexual Current gender identity: Female Vitals/I&O/Wt Last Vital Signs Temp 98.0 F 05/25/23 16:00 Pulse 77 05/26/23 05:30 Resp 16 05/26/23 03:47 BP 156/74 05/25/23 21:17 Pulse Ox 100 05/26/23 03:47 O2 Del Method Nasal Cannula 05/26/23 02:00 O2 Flow Rate 2 05/26/23 02:00 Physical Exam Const: COMMON NORMALS: no acute distress and patient oriented x3; negative for healthy appearing HENMT: COMMON NORMALS: normocephalic and atraumatic HEAD & SCALP: normocephalic and atraumatic Eye: COMMON NORMALS: EOMs intact bilaterally and no scleral icterus Neck/C-Spine: COMMON NORMALS: negative for full ROM OTHER: She does have skin changes consistent with prior radiotherapy Chest: COMMONS NORMALS: normal palpation of entire chest wall Resp: EFFORT & INSPECTION: Yes symmetric chest movement and Yes tachypneic Cardio: COMMON NORMALS: regular rhythm; negative for regular rate RATE: abnormal rate and tachycardic RHYTHM: regular rhythm GI: COMMON NORMALS: Normal to inspection, nondistended, normoactive bowel sounds present Extremity: COMMON NORMALS: negative for full ROM NARRATIVE EXTREMITY EXAM: Mild clubbing Neuro: COMMON NORMALS: patient oriented x3, moves all extremities, no focal motor deficits and no sensory deficits noted Data 05/26/23 01:07 05/26/23 01:07 A&P Assessment and plan (1) Sinus node dysfunction: Ms. Lombardi is a small and short statured 73-year-old female with multiple medical problems including history for thyroid cancer status post surgery and radiation as well as history for lung cancer and stereotactic radiation. She has advanced lung dysfunction with pulmonary hypertension as well has continued tobacco use. She has been diagnosed with recent sinus node dysfunction which has been symptomatic in relation to use of beta-blockers to control ongoing tachycardia. Permanent pacemaker implantation has been recommended. Due to her prior radiotherapy and malignancies, I was consulted to consider leadless pacemaker implantation. I had a lengthy discussion with Ms. Lombardi yesterday afternoon as well as again this morning with her son present. I discussed the rationale to consider pacemaker implantation. Options for standard lead pacemaker versus leadless pacemaker were also frankly discussed. She would benefit from dual-chamber pacing related to an intact pathway except for her sinus node dysfunction, though obviously there may be some technical considerations related to her prior cancer treatments. Leadless pacemaker is an option as well, though her short stature as well as overall general deconditioning does create increased risk for technical mishap which could include cardiac perforation. The general details of both standard lead pacemaker implantation and leadless pacemaker implantation were discussed at length with Ms. Lombardi and her son. They appear to have a good understanding of the implant technique. She and her son are in agreement to pacemaker implantation. My recommendation would be to initially attempt standard lead pacemaker implantation with the pacing generator placed near the left axilla to allow for further soft tissue coverage if this is possible and the leads can be advanced without technical challenges. If not, I would then recommend proceeding with attempt at a leadless pacemaker with the understanding that she is at increased risk for substantial complications including catastrophic cardiac perforation, particularly in relation to her prior medical history, poor overall general status, short stature, as well as steroid use. She and her son state understanding of these risk and are in agreement to proceed. We will tentatively plan for pacemaker implantation tomorrow. Consult Attestations Medical Necessity Statement: Symptomatic sinus pauses during beta-kapil treatment for tachycardia Coding Level of Care Code Acute Code for [facility] Diagnoses Sinus node dysfunction I49.5
[2023-05-26] MEDS: budesonide 0.5 mg/2 mL Neb INHALATION ×2 (08:21→20:26)
[2023-05-26] MEDS: ipratropium-albuterol 3 mL Neb INHALATION ×3 (08:21→20:26)
[2023-05-26] MEDS: buprenorphine-naloxone 4-1 mg Film 2 EACH SUBLINGUAL ×3 (09:16→23:05)
[2023-05-26] MEDS: mupirocin oint 22 gm 1 APPLIC NOSTRIL-B (09:19)
[2023-05-26] MEDS: chlorhexidine gluconate 4% Btl 118 mL 1 APPLIC TOPICAL ×2 (09:19→18:23)
[2023-05-26] MEDS: atorvastatin 40 mg Tablet PO (09:20)
[2023-05-26] MEDS: cyanocobalamin 1,000 mcg Tablet 1000 MCG PO (09:20)
[2023-05-26] MEDS: levothyroxine 75 mcg Tablet PO (09:20)
[2023-05-26] MEDS: calcitriol 0.25 mcg Capsule 0.5 MCG PO (09:20)
[2023-05-26] MEDS: ALPRAZolam 0.5 mg Tablet PO ×2 (10:21→18:23)
[2023-05-26] MEDS: tizanidine 4 mg Tablet PO ×2 (10:21→18:23)
[2023-05-26] MEDS: roflumilast 500 mcg Tablet PO (10:21)
--- NOTE | 2023-05-26 14:15 | P.PN_ITS ---
Subjective Subjective: No acute events overnight. Patient continues to have occasional pauses. Denies any nausea, vomiting, headache. Has remained otherwise hemodynamically stable and afebrile. Blood work appreciated for stable CBC and CMP with potassium of over 4. Vitals/I&O/Wt Last Vital Signs Temp 97.8 F 05/26/23 11:41 Pulse 95 05/26/23 13:39 Resp 22 H 05/26/23 13:32 BP 135/65 05/26/23 11:41 Pulse Ox 96 05/26/23 13:32 O2 Del Method Nasal Cannula 05/26/23 13:32 O2 Flow Rate 2 05/26/23 13:32 05/25/23 05/26/23 05/26/23 22:59 06:59 14:59 Intake Total 340 / 340 Output Total 800 / 800 Balance -460 / -460 Physical Exam Narrative: General: No acute distress, AO x3, NC oxygen supplementation HEENT: PERRLA, pupils bilaterally equal and reactive Chest:Bronchial breath sounds b/l, occasional rhonchi all over the lung mata CVS: S1-S2 regular, no murmurs, no tachycardia, no gallops, no rubs Abdomen: Soft, nontender, no organomegaly, bowel sounds present, morbidly obese Neuro: No focal deficits, no facial deformity, AO x3, power 5/5 in all limbs Data 05/26/23 01:07 05/26/23 01:07 A&P Assessment and plan (1) Syncopal episodes: (2) Sinus pause: (3) Bradycardia: (4) COPD (chronic obstructive pulmonary disease): Qualifiers: COPD type: emphysema Emphysema type: panlobular Qualified Code(s): J43.1 - Panlobular emphysema (5) Lung cancer: Qualifiers: Laterality: unspecified laterality Lung location: unspecified part of lung Qualified Code(s): C34.90 - Malignant neoplasm of unspecified part of unspecified bronchus or lung Plan 73-year-old female who presented with chief complaint recurrent syncopal events found to be having bradycardia with sinus pauses on admission. Syncope: Most likely in setting of bradycardia with sinus pauses. ACS ruled out with negative troponin and Lexiscan stress test. Carotid Doppler done recently in March 2023 appreciated for bilateral less than 50%. CT head done earlier in April negative for any acute abnormality. D-dimer on admission 0.63 which is negative when correlated with age and is on the lower side since last checked in June. Echocardiogram done shows normal EF without any wall motion abnormality with moderate AI, moderate TR and moderate pulmonary hypertension. Sinus pauses with Symptomatic bradycardia: High concerns for sick sinus synd fabiola. Appreciate cardiology recommendations. Plan for pacemaker implantation. Awaiti ng further plans for traditional pacemaker versus leadless pacemaker from cardiology. Possible plan in AM. N.p.o. after midnight. Continue to hold off on beta-blockers. 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 Target potassium, magnesium level above 4 and 2 respectively. Hold off on oral magnesium supplementation for now. Repeat again in morning. History of lung cancer status post radiotherapy, patient has stage I lung cancer right lower lobe, stable lesion status post radiotherapy, non-small cell cancer however definitive diagnosis could not be reached because of inadequate sampling Patient carries history of thyroid cancer, laryngeal cancer COPD: Requires oxygen 2 L at baseline, patient uses Spiriva and Advair No active exacerbation for now. Continue with home dose of steroid as needed. DuoNeb every 6 hour, Pulmicort twice daily while in house. Full code Start on Pepcid for PUD prophylaxis Start on heparin 5000 every 12 hourly for DVT prophylaxis. Cardiac diet Continue with CSU care. Telemetry monitoring. Start incentive spirometry. Discharge planning: Plan to discharge home with caregiver post pacemaker implantation. Care discussed in detail with patient at bedside. We discussed unfortunately patient is developed significant sinus pauses again on telemetry on initiation of lowest possible dose of beta-kapil without beta-kapil she goes into sinus tachycardia. Patient is agreeable for pacemaker implantation. Attestations Medical Necessity Statement*: Requires further hospitalization for management of syncope in setting of sinus pauses and symptomatic bradycardia while further plan of pacemaker is sought Diagnoses Syncopal episodes R55 Sinus pause I45.5 Bradycardia R00.1 COPD (chronic obstructive pulmonary disease) J43.1 COPD type: emphysema Emphysema type: panlobular Lung cancer C34.90 Laterality: unspecified laterality Lung location: unspecified part of lung
--- NOTE | 2023-05-26 18:07 | P.PN_ITS ---
Subjective Subjective: Because of the bradycardia, metoprolol was completely stopped. Patient currently has intermittent tachycardia. No chest pain. Continues to the baseline shortness of breath Medications: Medication Review Details: Current Medications Acetaminophen (Acetaminophen 500 Mg Tablet) 500 mg PO Q4H PRN PRN Reason: fever Albuterol/Ipratropium (Ipratropium-Albuterol 3 Ml Neb) 3 ml INHALATION Q6H.RESP ALEXA Last Admin: 05/26/23 13:32 Dose: 3 ml Alprazolam (Alprazolam 0.5 Mg Tablet) 0.5 mg PO TID PRN PRN Reason: ANXIETY Last Admin: 05/26/23 10:21 Dose: 0.5 mg Atorvastatin Calcium (Atorvastatin 40 Mg Tablet) 40 mg PO DAILY [facility] Last Admin: 05/26/23 09:20 Dose: 40 mg Budesonide (Budesonide 0.5 Mg/2 Ml Neb) 0.5 mg INHALATION BID.RESPIRATORY ALEXA Last Admin: 05/26/23 08:21 Dose: 0.5 mg Buprenorphine/Naloxone (Buprenorphine-Naloxone 4-1 Mg Film) 2 each SUBLINGUAL Q8H [facility] Last Admin: 05/26/23 16:25 Dose: 2 each Calcitriol (Calcitriol 0.25 Mcg Capsule) 0.5 mcg PO DAILY ALEXA Last Admin: 05/26/23 09:20 Dose: 0.5 mcg Chlorhexidine Gluconate (Chlorhexidine Gluconate 4% Btl 118 Ml) 1 applic T OPICAL BID [facility] Last Admin: 05/26/23 09:19 Dose: 1 applic Cyanocobalamin (Cyanocobalamin 1,000 Mcg Tablet) 1,000 mcg PO DAILY ALEXA Last Admin: 05/26/23 09:20 Dose: 1,000 mcg Famotidine (Famotidine 20 Mg Tablet) 20 mg PO BID ALEXA Last Admin: 05/26/23 17:16 Dose: Not Given Levothyroxine Sodium (Levothyroxine 75 Mcg Tablet) 75 mcg PO DAILY [facility] Last Admin: 05/26/23 09:20 Dose: 75 mcg Montelukast Sodium (Montelukast Sodium 10 Mg Tablet) 10 mg PO QPM [facility] Last Admin: 05/25/23 17:29 Dose: 10 mg Ondansetron HCl (Ondansetron 2 Mg/Ml Sdv 2 Ml) 4 mg IVP Q6H PRN PRN Reason: NAUSEA AND VOMITING Prednisone (Prednisone 10 Mg Tablet) 10 mg PO DAILY PRN PRN Reason: sob Roflumilast (Roflumilast 500 Mcg Tablet) 500 mcg PO DAILY ALEXA Last Admin: 05/26/23 10:21 Dose: 500 mcg Sodium Chloride (Sodium Chloride 0.9% 100 Ml Bag) 50 ml IV PRN PRN PRN Reason: Blood transfusion prime and flush Stop: 05/27/23 07:39 Tizanidine HCl (Tizanidine 4 Mg Tablet) 4 mg PO TID PRN PRN Reason: Muscle Spasticity Last Admin: 05/26/23 10:21 Dose: 4 mg Vitals/I&O/Wt Last Vital Signs Temp 98.5 F 05/26/23 16:00 Pulse 100 05/26/23 16:00 Resp 20 H 05/26/23 16:00 BP 128/59 05/26/23 16:00 Pulse Ox 96 05/26/23 16:00 O2 Del Method Nasal Cannula 05/26/23 16:00 O2 Flow Rate 2 05/26/23 13:32 05/26/23 05/26/23 05/26/23 06:59 14:59 22:59 Intake Total 340 / 340 Output Total 800 / 800 Balance -460 / -460 Physical Exam Narrative: GENERAL: The patient is alert and oriented times three. Not in any acute distress. HEENT: No significant pallor, icterus or lymphadenopathy.Oral cavity: There are no mucous membrane lesions. NECK: Trachea appears to be central. No masses noted. No JVD or thyromegaly appreciated. Port-A-Cath placement on the right side RESPIRATORY: Chest is symmetrical. No intercostals muscle retraction or any accessory muscle activation. There is no chest wall tenderness. Breath sounds are heard bilaterally. Scattered wheezes. Diminished intensity breath sounds at the bases. No evidence of any consolidation. BREASTS: Deferred. HEART: The heart sounds are normal. No S3 or S4. Short systolic murmur in the left sternal border. No pericardial rub ABDOMEN: No vessel pulsations or distention. No tenderness. No organomegaly appreciated. Bowel sounds are normally heard. : Deferred. RECTAL: Deferred. LYMPHATIC: No lymphadenopathy noted in the neck. EXTREMITIES: No edema or cyanosis. No clubbing. MUSCULOSKELETAL: No acute joint deformities or swelling SKIN: There are no significant rashes or ecchymosis NEUROPSYCHIATRIC: The patient is alert and oriented x3. Appears to be in a good mood. No tremors or rigidity noted. Data 05/26/23 01:07 05/26/23 01:07 Other Labs: Laboratory Last Values WBC 5.9 10^3/uL (4.0-10.0) 05/26/23 01:07 RBC 3.32 10^6/uL (4.1-5.3) L 05/26/23 01:07 Hgb 9.5 g/dL (11.5-15.3) L 05/26/23 01:07 Hct 31.7 % (37.0-47.0) L 05/26/23 01:07 MCV 95.5 fl (81-99) 05/26/23 01:07 MCH 28.6 pg (28.0-34.0) 05/26/23 01:07 MCHC 30.0 g/dL (30.0-36.0) 05/26/23 01:07 RDW 14.5 % (12.1-15.1) 05/26/23 01:07 Plt Count 132 10^3/cmm (130-400) 05/26/23 01:07 MPV 10.3 fL (7.4-10.4) 05/26/23 01:07 Neut % (Auto) 66.6 % 05/26/23 01:07 Lymph % (Auto) 19.3 % 05/26/23 01:07 Piute % (Auto) 9.9 % 05/26/23 01:07 Eos % (Auto) 3.7 % 05/26/23 01:07 Baso % (Auto) 0.2 % 05/26/23 01:07 Neut # (Auto) 3.91 10^3/uL (1.8-7.7) 05/26/23 01:07 Lymph # (Auto) 1.1 10^3/uL (0.8-4.8) 05/26/23 01:07 Piute # (Auto) 0.6 10^3/uL (0.2-0.9) 05/26/23 01:07 Eos # (Auto) 0.2 10^3/uL (0.0-0.8) 05/26/23 01:07 Baso # (Auto) 0.0 10^3/uL (0.0-0.1) 05/26/23 01:07 Nucleated RBC % (auto) 0 % 05/26/23 01:07 Nucleated RBCs # 0.0 /100WBC 05/26/23 01:07 PT 14.70 SECONDS (12.1-14.9) 05/20/23 19:28 INR 1.11 (0.8-1.2) 05/20/23 19:28 D-Dimer 0.63 ug/mIFEU (0-0.59) H 05/20/23 20:44 Sodium 139 mmol/L (136-145) 05/26/23 01:07 Potassium 4.1 mmol/L (3.5-5.1) 05/26/23 01:07 Chloride 99 mmol/L (98-107) 05/26/23 01:07 Carbon Dioxide 34 mmol/L (22-29) H 05/26/23 01:07 Anion Gap 10.1 (5-19) 05/26/23 01:07 BUN 11 mg/dL (8-23) 05/26/23 01:07 Creatinine 0.7 mg/dL (0.5-0.9) 05/26/23 01:07 GFR Calculation Not Reportable 05/26/23 01:07 Glucose 87 mg/dL (65-115) 05/26/23 01:07 Estimat Average Glucose 97 05/24/23 03:01 Hemoglobin A1c 5.0 % (4.0-6.0) 05/24/23 03:01 Calculated Osmolality 287 mOsm/kg (285-295) 05/26/23 01:07 Calcium 9.4 mg/dL (8.5-10.5) 05/26/23 01:07 Magnesium 1.9 mg/dL (1.7-2.3) 05/24/23 03:01 Iron 60 ug/dL (37-145) 05/23/23 02:03 TIBC 229 mcg/dl 05/23/23 02:03 % Saturation 26.2 % (20-50) 05/23/23 02:03 Unsat Iron Binding 169 ug/dL (112-347) 05/23/23 02:03 Total Bilirubin 0.3 mg/dL (0.15-1.2) 05/26/23 01:07 AST 36 U/L (0-32) H 05/26/23 01:07 ALT 22 U/L (0-33) 05/26/23 01:07 Alkaline Phosphatase 108 U/L (35-105) H 05/26/23 01:07 Troponin T Gen 5 ng/L 16 ng/L (0-10) H 05/22/23 20:39 Troponin T Baseline 14 ng/L (0-10) H 05/20/23 19:28 Troponin T 120 Minute 14.90 ng/L (0-10) H 05/20/23 20:44 Delta Troponin T 0.90 ABS# (0-10) 05/20/23 20:44 Troponin T Hi Sens 6Hr 15.64 ng/L (0-10) H 05/21/23 01:49 Troponin T Hi Sens 6Hr Delta 1.64 ng/L (0-12) 05/21/23 01:49 NT-Pro-B Natriuret Pep 630 pg/mL (0-125) H 05/20/23 19:28 Total Protein 6.0 g/dL (6.6-8.7) L 05/26/23 01:07 Albumin 3.6 g/dL (3.5-5.2) 05/26/23 01:07 Globulin 2.4 g/dL (1.3-4.6) 05/26/23 01:07 Vitamin B12 290 pg/mL (232-1245) 05/23/23 02:03 Folate 5.6 ng/mL (4.8-37.3) 05/24/23 03:01 Procalcitonin 0.02 ng/mL (0-0.5) 05/20/23 20:44 TSH 1.03 uIU/mL (0.27-4.20) 05/20/23 20:44 Blood Type A Positive 05/26/23 08:30 Rho(D) Type Positive 05/26/23 08:30 Antibody Screen Negative 05/26/23 08:30 Crossmatch See Detail 05/26/23 08:30 A&P Assessment and plan (1) Recurrent syncope: Most likely related to the tachy or bob arrhythmias. (2) Sinus node dysfunction: As mentioned above. The sinus pauses seem to be persisting even after discontinuing the beta-kapil for several days. In view of this, patient may benefit from a permanent pacemaker. (3) Seizure-like activity: The etiology is not clear. (4) Chronic respiratory failure with hypoxia: Patient is on chronic oxygen (5) COPD (chronic obstructive pulmonary disease): As mentioned above Qualifiers: COPD type: emphysema Emphysema type: panlobular Qualified Code(s): J43.1 - Panlobular emphysema (6) Hx of carotid stenosis: The carotid duplex examination revealed moderate carotid artery disease with less than 50% stenosis (7) Benign essential hypertension: Currently normotensive. (8) Dyslipidemia (high LDL; low HDL): Plan The patient is scheduled for the pacemaker insertion tomorrow by Dr. Solomon. May the current measures. Attestations Medical Necessity Statement*: Patient requires continued hospital stay for close monitoring and further management Coding Level of Care Code 90355 Diagnoses Recurrent syncope R55 Sinus node dysfunction I49.5 Seizure-like activity R56.9 Chronic respiratory failure with hypoxia J96.11 COPD (chronic obstructive pulmonary disease) J43.1 COPD type: emphysema Emphysema type: panlobular Hx of carotid stenosis Z86.79 Benign essential hypertension I10 Dyslipidemia (high LDL; low HDL) E78.5
[2023-05-26] MEDS: montelukast sodium 10 mg Tablet PO (18:23)
[2023-05-27] VITALS (23 sets, daily range): BP systolic 104–186; BP diastolic 66–129; PULSE 87–130; RESP 13–24; TEMP 36.1–36.8; O2SAT 91–100
[2023-05-27] MEDS: ALPRAZolam 0.5 mg Tablet PO ×2 (00:43→23:35)
--- NOTE | 2023-05-27 05:49 | P.PN_ITS ---
Subjective Subjective: Ms. Lombardi is resting on rounds this morning. Nurses report no concerns, with occasional pauses again noted. She has been n.p.o. since midnight and is on a fluid restriction. Laboratory data from yesterday has been reviewed. Vitals/I&O/Wt Last Vital Signs Temp 97.4 F L 05/27/23 04:00 Pulse 108 H 05/27/23 04:00 Resp 20 H 05/27/23 04:00 BP 138/79 05/27/23 04:00 Pulse Ox 94 05/27/23 04:00 O2 Del Method Nasal Cannula 05/27/23 04:00 O2 Flow Rate 2 05/26/23 20:26 05/26/23 05/26/23 05/27/23 14:59 22:59 06:59 Intake Total 340 / 340 0 / 340 Output Total 800 / 800 200 / 1000 Balance -460 / -460 0 / -460 -200 / -660 Weight last 48 hrs Weight 94 lb Physical Exam Resp: COMMON NORMALS: normal respiratory effort and clear to auscultation bilaterally AUSCULTATION: clear to auscultation bilaterally Cardio: COMMON NORMALS: regular rate and regular rhythm RATE: regular rate RHYTHM: regular rhythm Data 05/26/23 01:07 05/26/23 01:07 A&P Assessment and plan (1) Sinus node dysfunction: We will tentatively plan for attempt at pacemaker implantation at noon today. We will initially attempt standard 2-lead pacemaker implantation with the understanding that there may be technical challenges related to her body habitus and prior treatment for thyroid cancer which is included radiation therapy. If this is not possible, we will attempt leadless pacemaker insertion. I spoke in detail with Ms. Lombardi and her son yesterday morning concerning this. They were in agreement with our current plans and do understand the increased risk related to her body habitus, prior radiation therapy, and continued tobacco use and advanced lung disease. She would be at increased risk for technical challenges related to standard pacemaker implantation due to her prior radiotherapy and mason l be at increased risk for leadless pacemaker implantation due to her short body habitus, overall deconditioning, as well as chronic steroid use which will increase her risk for wound healing complications as well as potential catastrophic cardiac perforation with leadless pacemaker implantation. I discussed these risk very specifically with Ms. Lombardi and her son. They stated understanding and were in agreement to proceed. As she has been on fluid restrictions and with no current IV, I plan to initiate IV fluids at 150 cc an hour in order to avoid excessive intravascular volume depletion which will increase challenges with lead placement. Attestations Medical Necessity Statement*: Sinus node dysfunction with prolonged pauses with attempt at beta-blockade use to control tachycardia. Coding Level of Care Code Acute Code for [facility] Diagnoses Sinus node dysfunction I49.5
[2023-05-27] MEDS: buprenorphine-naloxone 4-1 mg Film 2 EACH SUBLINGUAL ×2 (06:11→23:35)
[2023-05-27] MEDS: lactated ringers 1,000 ML 150 ML IV (06:11)
[2023-05-27] MEDS: ipratropium-albuterol 3 mL Neb INHALATION ×2 (08:04→20:06)
[2023-05-27] MEDS: budesonide 0.5 mg/2 mL Neb INHALATION ×2 (08:04→20:06)
[2023-05-27] MEDS: levothyroxine 75 mcg Tablet PO (08:34)
--- NOTE | 2023-05-27 10:28 | P.PN_ITS ---
Subjective Subjective: No acute events overnight. Patient is eagerly awaiting for her pacemaker implantation today. Denies any new complaints. Denies any nausea, vomiting, headache. Hemodynamically has remained stable. Vitals/I&O/Wt Last Vital Signs Temp 98.0 F 05/27/23 08:00 Pulse 100 05/27/23 08:00 Resp 16 05/27/23 08:00 BP 127/67 05/27/23 08:00 Pulse Ox 100 05/27/23 08:00 O2 Del Method Nasal Cannula 05/27/23 08:00 O2 Flow Rate 2 05/27/23 08:00 05/26/23 05/27/23 05/27/23 22:59 06:59 14:59 Intake Total 0 / 340 Output Total 200 / 1000 Balance 0 / -460 -200 / -660 Weight last 48 hrs Weight 42.638 kg Physical Exam 2 Narrative: General: No acute distress, AO x3, NC oxygen supplementation HEENT: PERRLA, pupils bilaterally equal and reactive Chest:Bronchial breath sounds b/l, occasional rhonchi all over the lung mata CVS: S1-S2 regular, no murmurs, no tachycardia, no gallops, no rubs Abdomen: Soft, nontender, no organomegaly, bowel sounds present, morbidly obese Neuro: No focal deficits, no facial deformity, AO x3, power 5/5 in all limbs Data 05/26/23 01:07 05/26/23 01:07 A&P Assessment and plan (1) Syncopal episodes: (2) Sinus pause: (3) Bradycardia: (4) COPD (chronic obstructive pulmonary disease): Qualifiers: COPD type: emphysema Emphysema type: panlobular Qualified Code(s): J43.1 - Panlobular emphysema (5) Lung cancer: Qualifiers: Laterality: unspecified laterality Lung location: unspecified part of lung Qualified Code(s): C34.90 - Malignant neoplasm of unspecified part of unspecified bronchus or lung Plan 73-year-old female who presented with chief complaint recurrent syncopal events found to be having bradycardia with sinus pauses on admission. Syncope: Most likely in setting of bradycardia with sinus pauses. ACS ruled out with negative troponin and Lexiscan stress test. Carotid Doppler done recently in March 2023 appreciated for bilateral less than 50%. CT head done earlier in April negative for any acute abnormality. D-dimer on admission 0.63 which is negative when correlated with age and is on the lower side since last checked in June. Echocardiogram done shows normal EF without any wall motion abnormality with moderate AI, moderate TR and moderate pulmonary hypertension. Sinus pauses with Symptomatic bradycardia: High concerns for sick sinus syndrome. Appreciate cardiology recommendations. Plan for pacemaker implantation. Plan for pacemaker implantation today. Continue to hold off on beta-blockers. Continue on teletypesetter monitor. Target potassium, magnesium level above 4 and 2 respectively. Hold off on oral magnesium supplementation for now. Repeat again in morning. History of lung cancer status post radiotherapy, patient has stage I lung cancer right lower lobe, stable lesion status post radiotherapy, non-small cell cancer however definitive diagnosis could not be reached because of inadequate sampling Patient carries history of thyroid cancer, laryngeal cancer COPD: Requires oxygen 2 L at baseline, patient uses Spiriva and Advair No active exacerbation for now. Continue with home dose of steroid as needed. DuoNeb every 6 hour, Pulmicort twice daily while in house. Full code Start on Pepcid for PUD prophylaxis Start on heparin 5000 every 12 hourly for DVT prophylaxis. Cardiac diet Continue with CSU care. Telemetry monitoring. Start incentive spirometry. Discharge planning: Plan to discharge home with caregiver post pacemaker impl antation. Plan for the day: Pacemaker implantation. Postimplantation care. Start on diet post pacemaker implantation. Monitor hemodynamics. Repeat CBC and CMP in AM. Continue other chronic medications including Suboxone, levothyroxine, oxygen therapy. Care discussed in detail with patient at bedside. We discussed unfortunately patient is developed significant sinus pauses again on telemetry on initiation of lowest possible dose of beta-kapil without beta-kapil she goes into sinus tachycardia. Patient is agreeable for pacemaker implantation. Attestations Medical Necessity Statement*: Requires further hospitalization while patient awaits pacemaker implantation for management of symptomatic bradycardia with sinus pauses Diagnoses Syncopal episodes R55 Sinus pause I45.5 Bradycardia R00.1 COPD (chronic obstructive pulmonary disease) J43.1 COPD type: emphysema Emphysema type: panlobular Lung cancer C34.90 Laterality: unspecified laterality Lung location: unspecified part of lung
--- NOTE | 2023-05-27 11:15 | PC.NURSE ---
Patient off floor to surgery for pacemaker placement at 1111
--- NOTE | 2023-05-27 11:30 | ANES.PREANE2 ---
Pre-Anesthetic Assessment Height/Weight: Height 1.52 m Weight 42.638 kg Temp Pulse Resp BP Pulse Ox O2 Del Method O2 Flow Rate 97.0 F L 92 16 156/66 100 Nasal Cannula 3 05/27/23 11:28 05/27/23 11:28 05/27/23 11:28 05/27/23 11:28 05/27/23 11:28 05/27/23 11:28 05/27/23 11:28 Operation Date: 05/27/23 12:00 Proposed Procedures p Pacemaker Wireless(Not Applicable) - Guillaume Solomon MD Familial anesthetic complications: Difficult intubation requiring smaller tube Last intake: > 8hrs Social No alcohol and No tobacco Exam alert, oriented x 3, clear to auscultation bilaterally and regular rate & rhythm Airway Mallampati: Class I Dentition: other (missing) Comments: Comments: hx thyroid and laryngeal cancer patient also states she accidentally swallowed a caustic substance (laundry detergent) in the past so she has trouble swallowing and this has caused her airway to narrow Pulmonary Chronic Obstructive Pulmonary Disease (2 L LNC) and Exertional Dyspnea CV/HEM Stable Angina, Coronary Artery Disease (PCI) and Hypertension Sinus pauses myocardial perfusion scan 05/21 ?IMPRESSIONS ?1. Small sized perfusion abnormality of mild severity of mid inferolateral, ?apical lateral, apical inferior and apical septal and apical fisher. ?2. This may represent attenuation artifact or old myocardial infarction in left ?anterior descending artery territory. ?3. EKG portion of the study will be reported separately. ?4. No Coronary ischemia based on the study. Echo 05/21 CONCLUSIONS ?LV systolic function is normal with EF of 55 to 60%. ?Mild mitral regurgitation ?Moderate aortic regurgitation ?Moderate tricuspid regurgitation ?Moderate pulmonary hypertension ?Compared to prior echocardiogram from 05/2022, no significant ?changes are seen Metabolic Hyperlipidemia and Thyroid Disease Anesthetic Plan ASA status: 4 Anesthesia: General Risk of > 500 ml blood loss (7ml/kg in children): No Medications/Allergies Home Medications Medication Instructions Recorded Confirmed Last Taken Type buprenorphine 8 mg-naloxone 2 mg 1 film sublingual Q8H 12/04/19 05/21/23 08/06/21 History sublingual film (Suboxone) oxygen #1 ea 04/08/21 05/21/23 04/21/21 Rx diphenhydramine HCl 25 mg capsule 25 mg PO BID PRN Allergy Symptoms 05/21/21 06/23/23 09/08/21 History (Benadryl) calcitriol 0.5 mcg capsule 0.5 mcg PO DAILY #90 caps 05/25/22 05/21/23 Unknown Rx (Rocaltrol) metoprolol tartrate 25 mg tablet See Rx Instructions .Route 01/19/23 05/21/23 Unknown Rx .COMPLEX #180 tabs atorvastatin 40 mg tablet 40 mg PO DAILY #90 tabs 02/16/23 05/21/23 Unknown Rx budesonide 0.5 mg/2 mL suspension 0.5 mg (2 mL) inhalation BID #120 03/02/23 05/21/23 Unknown Rx for nebulization mL formoterol fumarate 20 mcg/2 mL 2 ml inhalation BID #120 mL 03/02/23 05/21/23 Unknown Rx solution for nebulization ipratropium 0.5 mg-albuterol 3 mg 3 ml inhalation Q6H PRN wheezing 03/02/23 05/21/23 Unknown Rx (2.5 mg base)/3 mL nebulization #90 mL soln potassium chloride 20 mEq/15 mL 8 meq (6 mL) PO DAILY PRN 03/11/23 05/21/23 Unknown Rx oral liquid hypokalemia #1,800 mL magnesium 30 mg tablet 30 mg PO DAILY #90 tabs 04/01/23 05/21/23 Unknown Rx nitroglycerin 0.4 mg sublingual See Rx Instructions .Route 04/12/23 05/21/23 Unknown Rx tablet .COMPLEX #50 tabs levothyroxine 75 mcg capsule 75 mcg PO DAILY #30 caps 04/15/23 05/21/23 Unknown Rx roflumilast 500 mcg tablet 500 mcg PO DAILY #90 tabs 04/15/23 05/21/23 Unknown Rx (Daliresp) tizanidine 4 mg tablet 4 mg PO TID PRN Muscle Spasticity 04/15/23 05/21/23 Unknown Rx #90 tabs 2 inch toilet seat #1 ea 04/20/23 05/21/23 Unknown Rx albuterol sulfate 90 mcg/actuation See Rx Instructions .Route 04/27/23 05/21/23 Unknown Rx aerosol inhaler (Ventolin HFA) .COMPLEX #18 grams bumetanide 0.5 mg tablet 0.5 mg PO DAILY #30 tabs 05/17/23 05/21/23 Unknown Rx lidocaine 5 % topical patch 1 patch transdermal DAILY 05/21/23 05/21/23 Unknown History montelukast 4 mg chewable tablet 8 mg PO DAILY 05/21/23 05/21/23 Unknown History Allergies Allergy/AdvReac Type Severity Reaction Status Date / Time adhesive tape Allergy ALGY-Rash Verified 05/21/23 10:14 amitriptyline Allergy ALGY-Hives Verified 05/21/23 10:14 amoxicillin Allergy ALGY-Hives Verified 05/21/23 10:14 cefaclor [From Ceclor] Allergy ALGY-Difficulty Verified 05/21/23 10:14 Breathing ciprofloxacin [From Cipro] Allergy ALGY-Difficulty Verified 05/21/23 10:14 Breathing gabapentin Allergy ALGY-Hives Verified 05/21/23 10:14 ibuprofen Allergy ALGY-Hives Verified 05/21/23 10:14 metronidazole [From Flagyl] Allergy ALGY-Hives Verified 05/21/23 10:14 Penicillins Allergy ALGY-Hives Verified 05/21/23 10:14 Sulfa (Sulfonamide Allergy ALGY-Hives Verified 05/21/23 10:14 Antibiotics) tetracycline Allergy ALGY-Hives Verified 05/21/23 10:14 trimethoprim Allergy ALGY-Hives Verified 05/21/23 10:14 Current Medications Generic Name Dose Route Start Last Admin Trade Name Freq PRN Reason Stop Dose Admin Albuterol/Ipratropium 3 ml 05/23/23 08:00 05/27/23 08:04 Ipratropium-Albuterol 3 Ml Neb INHALATION 3 ml Q6H.RESP ALEXA Administration Alprazolam 0.5 mg 05/22/23 14:39 05/27/23 00:43 Alprazolam 0.5 Mg Tablet PO 0.5 mg TID PRN Administration ANXIETY Atorvastatin Calcium 40 mg 05/24/23 09:00 05/27/23 09:42 Atorvastatin 40 Mg Tablet PO Not Given DAILY ALEXA Budesonide 0.5 mg 05/23/23 20:00 05/27/23 08:04 Budesonide 0.5 Mg/2 Ml Neb INHALATION 0.5 mg BID.RESPIRATORY ALEXA Administration Buprenorphine/Naloxone 2 each 05/20/23 23:00 05/27/23 06:11 Buprenorphine-Naloxone 4-1 Mg Film SUBLINGUAL 2 each Q8H ALEXA Administration Calcitriol 0.5 mcg 05/21/23 09:00 05/27/23 09:42 Calcitriol 0.25 Mcg Capsule PO Not Given DAILY ALEXA Chlorhexidine Gluconate 1 applic 05/26/23 09:00 05/27/23 09:42 Chlorhexidine Gluconate 4% Btl 118 Ml TOPICAL Not Given BID ALEXA Cyanocobalamin 1,000 mcg 05/23/23 12:55 05/27/23 09:42 Cyanocobalamin 1,000 Mcg Tablet PO Not Given DAILY ALEXA Famotidine 20 mg 05/23/23 18:00 05/27/23 09:43 Famotidine 20 Mg Tablet PO Not Given BID ALEXA Lactated Ringer's 1,000 mls @ 150 mls/hr 05/27/23 05:45 05/27/23 06:11 Lactated Ringers IV 150 mls/hr .Q6H40M ALEXA Administration Levothyroxine Sodium 75 mcg 05/21/23 09:00 05/27/23 08:34 Levothyroxine 75 Mcg Tablet PO 75 mcg DAILY [facility] Administration Montelukast Sodium 10 mg 05/21/23 18:00 05/26/23 18:23 Montelukast Sodium 10 Mg Tablet PO 10 mg QPM ALEXA Administration Roflumilast 500 mcg 05/21/23 09:00 05/27/23 09:43 Roflumilast 500 Mcg Tablet PO Not Given DAILY ALEXA Tizanidine HCl 4 mg 05/20/23 22:36 05/26/23 18:23 Tizanidine 4 Mg Tablet PO 4 mg TID PRN Administration Muscle Spasticity Additional Medication Information Current Medications Acetaminophen (Acetaminophen 500 Mg Tablet) 500 mg PO Q4H PRN PRN Reason: fever Albuterol/Ipratropium (Ipratropium-Albuterol 3 Ml Neb) 3 ml INHALATION Q6H.RESP ALEXA Last Admin: 05/26/23 13:32 Dose: 3 ml Alprazolam (Alprazolam 0.5 Mg Tablet) 0.5 mg PO TID PRN PRN Reason: ANXIETY Last Admin: 05/26/23 10:21 Dose: 0.5 mg Atorvastatin Calcium (Atorvastatin 40 Mg Tablet) 40 mg PO DAILY [facility] Last Admin: 05/26/23 09:20 Dose: 40 mg Budesonide (Budesonide 0.5 Mg/2 Ml Neb) 0.5 mg INHALATION BID.RESPIRATORY [facility] Last Admin: 05/26/23 08:21 Dose: 0.5 mg Buprenorphine/Naloxone (Buprenorphine-Naloxone 4-1 Mg Film) 2 each SUBLINGUAL Q8H ALEXA Last Admin: 05/26/23 16:25 Dose: 2 each Calcitriol (Calcitriol 0.25 Mcg Capsule) 0.5 mcg PO DAILY ALEXA Last Admin: 05/26/23 09:20 Dose: 0.5 mcg Chlorhexidine Gluconate (Chlorhexidine Gluconate 4% Btl 118 Ml) 1 applic TOPICAL BID [facility] Last Admin: 05/26/23 09:19 Dose: 1 applic Cyanocobalamin (Cyanocobalamin 1,000 Mcg Tablet) 1,000 mcg PO DAILY [facility] Last Admin: 05/26/23 09:20 Dose: 1,000 mcg Famotidine (Famotidine 20 Mg Tablet) 20 mg PO BID [facility] Last Admin: 05/26/23 17:16 Dose: Not Given Levothyroxine Sodium (Levothyroxine 75 Mcg Tablet) 75 mcg PO DAILY [facility] Last Admin: 05/26/23 09:20 Dose: 75 mcg Montelukast Sodium (Montelukast Sodium 10 Mg Tablet) 10 mg PO QPM [facility] Last Admin: 05/25/23 17:29 Dose: 10 mg Ondansetron HCl (Ondansetron 2 Mg/Ml Sdv 2 Ml) 4 mg IVP Q6H PRN PRN Reason: NAUSEA AND VOMITING Prednisone (Prednisone 10 Mg Tablet) 10 mg PO DAILY PRN PRN Reason: sob Roflumilast (Roflumilast 500 Mcg Tablet) 500 mcg PO DAILY [facility] Last Admin: 05/26/23 10:21 Dose: 500 mcg Sodium Chloride (Sodium Chloride 0.9% 100 Ml Bag) 50 ml IV PRN PRN PRN Reason: Blood transfusion prime and flush Stop: 05/27/23 07:39 Tizanidine HCl (Tizanidine 4 Mg Tablet) 4 mg PO TID PRN PRN Reason: Muscle Spasticity Last Admin: 05/26/23 10:21 Dose: 4 mg PFSH Anesthesia Medical History Atypical chest pain Patient had a cardiac catheterization in 2009 and was found to have no significant coronary disease. Atypical chest pain Benign essential hypertension CAD (coronary artery disease) CVA (cerebral vascular accident) Dyslipidemia (high LDL; low HDL) History of COPD Hx of carotid stenosis SOB (shortness of breath) Thyroid cancer Surgical History H/O thyroidectomy History of ankle surgery History of back surgery History of bilateral carpal tunnel release History of bronchoscopy History of hip surgery History of lumpectomy History of rectal surgery Hx of hysterectomy Port-A-Cath in place S/P hardware removal Spine Family History Brother Leukemia Diabetes Lung disease Mother Anesthesia complication CAD (coronary artery disease) Father Bleeding disorder Clotting disorder CAD (coronary artery disease) Cancer Stroke Sister CAD (coronary artery disease) Chronic kidney disease (CKD) Lung disease Family/Other Diabetes Stroke Grandfather Suicide Denies family history of Dementia Social History Smoking and tobacco status: current every day smoker (0.5 ppd) cigarettes Packs smoked per day: 0.5 Years cigarettes smoked: 55 [ Other cigarette details: Hx of 2 PPD x 50 Years, started at age 12] Quit status (tobacco): considering quitting Second hand smoke exposure: Yes Smoking risk assessment/counseling performed?: Yes Alcohol intake: never Desire information about alcohol rehabilitation?: No Counseling given: No Substance/Drug Use: never Desire information about substance/drug rehabilitation?: No Counseling given: No Adopted: No Lives independently: Yes Household members: none Housing: Apartment Marital status: / Current occupational status: disabled Do you think of yourself as: Straight/Heterosexual Current gender identity: Female Data Anesthesia 05/26/23 01:07 05/26/23 01:07 Short CBC 05/26/23 Range/Units 01:07 WBC 5.9 (4.0-10.0) 10^3/uL Hgb 9.5 L (11.5-15.3) g/dL Hct 31.7 L (37.0-47.0) % MCV 95.5 (81-99) fl Plt Count 132 (130-400) 10^3/cmm Neut % (Auto) 66.6 % Neut # (Auto) 3.91 (1.8-7.7) 10^3/uL BMP 05/26/23 01:07 Sodium 139 Potassium 4.1 Chloride 99 Carbon Dioxide 34 H BUN 11 Creatinine 0.7 Glucose 87 Calcium 9.4 Liver Function 05/26/23 Range/Units 01:07 Total Bilirubin 0.3 (0.15-1.2) mg/dL AST 36 H (0-32) U/L ALT 22 (0-33) U/L Alkaline Phosphatase 108 H (35-105) U/L Albumin 3.6 (3.5-5.2) g/dL Blood Bank 05/26/23 08:30 Blood Type A Positive Rho(D) Type Positive Antibody Screen Negative Cardiac Studies: Echocardiogram 05/20/23 Sestamibi Stress Test (Cardiology) 05/20/23
[2023-05-27] MEDS: sodium chloride 0.9% 1,000 ML 30 ML IV (12:00)
[2023-05-27] MEDS: vancomycin 750 MG in sodium chloride 0.9% 250 ML 250 MG IV (12:05)
--- NOTE | 2023-05-27 12:51 | SC_ITS ---
WS: [id number] Exam: C-arm FL for Pacemaker Date/Time of Exam: 05/27/2023 12:51 PM Reason For Exam: Intraoperative Anterior posterior C-arm image of the chest submitted for evaluation. The image depicts a pacer super imposing the left chest with the lead extending into the region of the right heart. There is also a r ight-sided Chemo-Port identified which appears to extend into the right atrium. Image obtained for in traoperative visualization.
[2023-05-27] MEDS: lidocaine 1% INJ 10 mL (per mL) INJECTION (12:53)
[2023-05-27] MEDS: vancomycin 1,000 MG SDV 1000 MG XX (13:18)
--- NOTE | 2023-05-27 14:08 | P.OP_ITS ---
Operative Report Date of procedure: May 27, 2023 Pre-op diagnosis: Sick sinus syndrome Post-op diagnosis: same Procedure done: Single-lead pacemaker implantation Implants: Pacing generator RV lead Pathology: none sent Surgeon: Guillaume Solomon Anesthesia: MAC and Local Complications: None: Post procedure chest x-ray pending Condition: stable Disposition: PACU Brief History: Ms. Lombardi is a 73-year-old female with multiple comorbidities and sick sinus syndrome. Did attempt to control tachycardia, even low-dose beta-blockade resulted in significant sinus pauses. Pacemaker implantation has been recommended to allow for continued treatment of her tachycardia. Dr. Salmon requested I consider pacemaker implantation due to her prior history for radiotherapy to her neck and upper chest from thyroid carcinoma and concerns that a leadless device may need to be implanted. Details of risk of pacemaker implantation both by traditional methods as well as Micra implantation were carefully discussed with Ms. Lombardi and her son. She has increased risk for complications related to her small stature, prior radiotherapy, rather elongated heart, advanced COPD, and steroid use for her pulmonary dysfunction. All questions were answered. Appropriate consents have been reviewed and signed. Procedure: Procedure: Ms. Lombardi was taken to the OR suite and placed in the supine position over a shoulder roll. She received conscious sedation with continuous anesthesia monitoring by. Her left chest was sterilely prepped and draped. She has a Mediport over the right chest wall. 1% lidocaine was infiltrated in the left subclavicular region. While in Trendelenburg position, utilizing hand-held ultrasound for vessel identification, a guidewire was placed in the left subclavian vein. This was confirmed in position by fluoroscopy. Next, after infiltration with lidocaine, a subcutaneous pocket was created beginning from the exit point of the guidewire and extending laterally and inferiorly. Cautery was utilized to create the pocket in a submuscular plane beneath the pectoralis muscle to allow for improved soft tissue coverage over the pacing generator, given her small body habitus and generalized debilitated condition. Hemostasis was confirmed. An antibiotic-soaked sponge was placed in the wound. A dilator and tear-away sheath was placed over the guidewire and advanced under fluoroscopy. Guidewire and dilator were removed. Next using a combination of curved and straight stylettes, the right ventricular lead was placed in position by fluoroscopy. The distal screw was extended. Interrogation was then performed confirming appropriate parameters. The tear-away sheath was then removed and the ventricular lead was sewn to the floor of the subcutaneous pocket. Pacing generator was brought into the field, and after confirmation of hemostasis in the submuscular pocket, the lead was connected to the generator with appropriate capture. The entire system was interrogated by fluoroscopy. Lead and generator were secured in the pocket. Sponge and needle count was correct. The wound was then closed in 2 layers of 3-0 Vicryl suture. Skin was reapproximated in a subcuticular manner with 4-0 Monocryl suture. A pressure dressing was applied. The left arm was placed in a sling. Ms. Lombardi had equal breath sounds bilaterally. She was then transferred to the PACU, where chest x- ray is currently pending. I did classification counselor with the family at the completion of the procedure. Following are the specifics of this system: Right ventricular lead is 52 cm and model 5076. Serial number [id number] Ventricular lead had sensing of 6.1 mV with an impedance of 513 ohms. Threshold was 1.0 V Nixle generator: Model # [id number] Serial #[id number]
--- NOTE | 2023-05-27 14:21 | XR_ITS ---
WS: [id number] Exam: XR chest 1V portable [id number] Date/Time of Exam: 05/27/2023 2:21 PM Reason For Exam: post op Comparison 05/20/2023. The lungs are hyperinflated and clear. Chronic interstitial changes. Normal cardiomediastinal silhoue tte. A right subclavian port appears to extend into the right atrium. An ICD noted over the left ches t. No pleural effusions. Bony structures are intact. XR/XR chest 1V portable [id number] IMPRESSION: 1. No acute cardiopulmonary process.
[2023-05-27] MEDS: metoprolol tartrate 1 mg/1 mL SDV 5 mL 5 MG IVP (14:31)
[2023-05-27 14:41] LABS: ABG PCO2 51.7 mmHg (35-45); ABG PH Result 7.39 (7.35-7.45); Arterial Blood Gas Hematocrit 32.8 % (37-47); Base Excess ABG 5.2 mmol/L (-2.0-2.0); Blood Gas Allen Test Pos; Blood Gas Sample Site Radial, right; Blood Gas Sample Type Arterial; HCO3 ABG 31.2 mmol/L (22-26)
[2023-05-27 14:44] LABS: Blood Gas Operator Identificat BROMA; Oxygen Device NC
[2023-05-27] MEDS: fentaNYL 50 mcg/mL INJ 2mL IVP (14:46)
--- NOTE | 2023-05-27 15:28 | PC.NURSE ---
patient back from surgery at 1510. She states her pain is a 10/10.
[2023-05-27 15:31] LABS: Glucose Point of Care 87 mg/dL (70-110)
[2023-05-27] MEDS: morphine 4 mg/mL SDV 1 mL 2 MG IVP (15:52)
[2023-05-27] MEDS: montelukast sodium 10 mg Tablet PO (17:49)
--- NOTE | 2023-05-27 19:10 | P.PN_ITS ---
Subjective Subjective: The patient is scheduled for the pacemaker implantation today. She seems to be doing okay so far- has not had any syncope or near syncopal episodes Medications: Medication Review Details: Current Medications Acetaminophen (Acetaminophen 500 Mg Tablet) 500 mg PO Q4H PRN PRN Reason: fever Hydrocodone Bitart/Acetaminophen (Hydrocodone-Acetaminophen 5-325 Mg Tablet) 1 tab PO Q4H PRN PRN Reason: MODERATE PAIN Al Hydrox/Mg Hydrox/Simethicone (Zslj-Zxc-Awjsqhbcx-Astrid 30 Ml Udc) 30 ml PO Q4H PRN PRN Reason: INDIGESTION Albuterol Sulfate (Albuterol 2.5 Mg/3 Ml Neb) 2.5 mg INHALATION ONCE PRN PRN Reason: WHEEZING Albuterol/Ipratropium (Ipratropium-Albuterol 3 Ml Neb) 3 ml INHALATION Q6H.RESP ALEXA Last Admin: 05/27/23 08:04 Dose: 3 ml Alprazolam (Alprazolam 0.5 Mg Tablet) 0.5 mg PO TID PRN PRN Reason: ANXIETY Last Admin: 05/27/23 00:43 Dose: 0.5 mg Atorvastatin Calcium (Atorvastatin 40 Mg Tablet) 40 mg PO DAILY ALEXA Last Admin: 05/27/23 09:42 Dose: Not Given Bisacodyl (Bisacodyl 10 Mg Supp) 10 mg AR Q6H PRN PRN Reason: Constipation (Use 5th) Bisacodyl (Bisacodyl 5 Mg Tablet) 5 mg PO Q6H PRN PRN Reason: Constipation (Use 2nd) Bismuth Subsalicylate (Bismuth Subsalicylate 240 Ml Btl) 30 ml PO PRN PRN PRN Reason: DIARRHEA Budesonide (Budesonide 0.5 Mg/2 Ml Neb) 0.5 mg INHALATION BID.RESPIRATORY ALEXA Last Admin: 05/27/23 08:04 Dose: 0.5 mg Buprenorphine/Naloxone (Buprenorphine-Naloxone 4-1 Mg Film) 2 each SUBLINGUAL Q8H ALEXA Last Admin: 05/27/23 06:11 Dose: 2 each Calcitriol (Calcitriol 0.25 Mcg Capsule) 0.5 mcg PO DAILY ALEXA Last Admin: 05/27/23 09:42 Dose: Not Given Cyanocobalamin (Cyanocobalamin 1,000 Mcg Tablet) 1,000 mcg PO DAILY ALEXA Last Admin: 05/27/23 09:42 Dose: Not Given Diphenhydramine HCl (Diphenhydramine 25 Mg Capsule) 25 mg PO BEDTIME PRN PRN Reason: SLEEP Docusate Sodium (Docusate Sodium 100 Mg Capsule) 100 mg PO BID PRN PRN Reason: Constipation (Use 1st) Famotidine (Famotidine 20 Mg Tablet) 20 mg PO BID [facility] Last Admin: 05/27/23 17:53 Dose: Not Given Famotidine (Famotidine 20 Mg/2 Ml Inj) 20 mg IVP ONCE PRN PRN Reason: HEARTBURN Fentanyl (Fentanyl 50 Mcg/Ml Inj 2ml) 50 mcg IVP Q10M PRN PRN Reason: Preop Pain Last Admin: 05/27/23 14:46 Dose: 50 mcg Fentanyl (Fentanyl 50 Mcg/Ml Inj 2ml) 100 mcg IVP ONCE PRN PRN Reason: Per anesthesia for block Guaifenesin (Guaifenesin 100 Mg/5 Ml Udc 10 Ml) 200 mg PO Q4H PRN PRN Reason: COUGH Sodium Chloride (Sodium Chloride 0.9%) 500 mls @ 999 mls/hr IV .Q31M PRN PRN Reason: HYPOTENSION Vancomycin HCl 750 mg/ Sodium (Chloride) 250 mls @ 250 mls/hr IV Q24H [facility]; Protocol Ipratropium [place] (Ipratropium 0.5 Mg/2.5 Ml Neb) 0.5 mg INHALATION ONCE PRN PRN Reason: WHEEZING Lactulose (Lactulose Oral Liq 20 Gm/30 Ml Udc) 20 gm PO Q6H PRN PRN Reason: Constipation (Use 3rd) Levothyroxine Sodium (Levothyroxine 75 Mcg Tablet) 75 mcg PO DAILY [facility] Last Admin: 05/27/23 08:34 Dose: 75 mcg Magnesium Hydroxide (Magnesium Hydroxide 30 Ml Udc) 45 ml PO DAILY PRN PRN Reason: Constipation (use 4th) Meperidine HCl (Meperidine 50 Mg/Ml Inj) 12.5 mg IVP Q5M PRN PRN Reason: Shivering PACU Phase I Stop: 05/28/23 14:42 Montelukast Sodium (Montelukast Sodium 10 Mg Tablet) 10 mg PO QPM [facility] Last Admin: 05/27/23 17:49 Dose: 10 mg Morphine Sulfate (Morphine 4 Mg/Ml Sdv 1 Ml) 2 mg IVP Q1H PRN PRN Reason: SEVERE PAIN Last Admin: 05/27/23 15:52 Dose: 2 mg Ondansetron HCl (Ondansetron 2 Mg/Ml Sdv 2 Ml) 4 mg IVP Q6H PRN PRN Reason: NAUSEA AND VOMITING Pantoprazole Sodium (Pantoprazole Dr 40 Mg Tablet) 40 mg PO DAILY ALEXA Prednisone (Prednisone 10 Mg Tablet) 10 mg PO DAILY PRN PRN Reason: sob Promethazine HCl (Promethazine 25 Mg Supp) 25 mg AR Q6H PRN PRN Reason: NAUSEA AND VOMITING Roflumilast (Roflumilast 500 Mcg Tablet) 500 mcg PO DAILY [facility] Last Admin: 05/27/23 09:43 Dose: Not Given Tizanidine HCl (Tizanidine 4 Mg Tablet) 4 mg PO TID PRN PRN Reason: Muscle Spasticity Last Admin: 05/26/23 18:23 Dose: 4 mg Vitals/I&O/Wt Last Vital Signs Temp 97.6 F 05/27/23 16:43 Pulse 87 05/27/23 18:34 Resp 15 05/27/23 16:43 BP 104/68 05/27/23 16:43 Pulse Ox 100 05/27/23 16:43 O2 Del Method Nasal Cannula 05/27/23 16:43 O2 Flow Rate 2 05/27/23 16:43 05/27/23 05/27/23 05/27/23 06:59 14:59 22:59 Intake Total 1250 / 1250 Output Total 200 / 1000 5 / 5 400 / 405 Balance -200 / -660 1245 / 1245 -400 / 845 Weight last 48 hrs Weight 94 lb Physical Exam Narrative: GENERAL: The patient is alert and oriented times three. Not in any acute distress. HEENT: No significant pallor, icterus or lymphadenopathy.Oral cavity: There are no mucous membrane lesions. NECK: Trachea appears to be central. No masses noted. No JVD or thyromegaly appreciated. RESPIRATORY: Chest is symmetrical. No intercostals muscle retraction or any accessory muscle activation. There is no chest wall tenderness. Breath sounds are heard bilaterally. No rales or rhonchi heard. No evidence of any consolidation. BREASTS: Deferred. HEART: The heart sounds are normal. No S3 or S4. Short systolic murmur at the left sternal border. No pericardial rub ABDOMEN: No vessel pulsations or distention. No tenderness. No organomegaly appreciated. Bowel sounds are normally heard. : Deferred. RECTAL: Deferred. LYMPHATIC: No lymphadenopathy noted in the neck. EXTREMITIES: 1+ edema with no cyanosis MUSCULOSKELETAL: No acute joint deformities or swelling SKIN: There are no significant rashes or ecchymosis NEUROPSYCHIATRIC: The patient is alert and oriented x3. Appears to be in a good mood. No tremors or rigidity noted. Data 05/26/23 01:07 05/26/23 01:07 A&P Assessment and plan (1) Recurrent syncope: Most likely related to the tachy or bob arrhythmias. (2) Sinus node dysfunction: Currently the patient is remaining in sinus rhythm. May continue on the current measures. (3) Seizure-like activity: Has not had a documented seizure activity so far (4) Chronic respiratory failure with hypoxia: Patient is on chronic oxygen. Follow-up evaluation management as per the primary care/manager oracle (5) COPD (chronic obstructive pulmonary disease): As mentioned above Qualifiers: COPD type: emphysema Emphysema type: panlobular Qualified Code(s): J43.1 - Panlobular emphysema (6) Hx of carotid stenosis: The carotid duplex examination revealed moderate carotid artery disease with less than 50% stenosis (7) Benign essential hypertension: Currently normotensive. (8) Dyslipidemia (high LDL; low HDL): Plan The patient is scheduled for the pacemaker insertion insertion today. She will be kept overnight. If rhythm goes okay, may be discharged home tomorrow Attestations Medical Necessity Statement*: In the event of the patient developing any unusual chest pain, palpitations, SOB or any other new symptoms, advised to contact our office. I may see the patient back in the office in 6 months Coding Level of Care Code Acute Code for Chg Fwd Diagnoses Recurrent syncope R55 Sinus node dysfunction I49.5 Seizure-like activity R56.9 Chronic respiratory failure with hypoxia J96.11 COPD (chronic obstructive pulmonary disease) J43.1 COPD type: emphysema Emphysema type: panlobular Hx of carotid stenosis Z86.79 Benign essential hypertension I10 Dyslipidemia (high LDL; low HDL) E78.5
[2023-05-27] MEDS: metoprolol tartrate 25 mg Tablet 12.5 MG PO (20:35)
[2023-05-27] MEDS: HYDROcodone-acetaminophen 5-325 mg Tablet 1 TAB PO (20:45)
[2023-05-28] MEDS: ipratropium-albuterol 3 mL Neb INHALATION ×2 (01:29→07:53)
[2023-05-28 01:30] VITALS: PULSE 88; RESP 16; O2SAT 96
[2023-05-28 03:22] VITALS: BP 125/87; PULSE 94; RESP 20; TEMP 36.3
[2023-05-28 03:24] VITALS: BP 125/87; PULSE 90; RESP 21
[2023-05-28] MEDS: HYDROcodone-acetaminophen 5-325 mg Tablet 1 TAB PO (04:30)
[2023-05-28 05:41] LABS: Basophils % 0.1 %; Eosinophils # 0.4 10^3/uL (0.0-0.8); Eosinophils % 4.5 %; Hemoglobin 9.3 g/dL (11.5-15.3); Lymphocytes # 1.1 10^3/uL (0.8-4.8); Lymphocytes % 12.8 %; Mean Corpuscular Hemoglobin 29.2 pg (28.0-34.0); Mean Corpuscular Volume 97.2 fl (81-99); Mean Platelet Volume 10.4 fL (7.4-10.4); Monocytes % 11.7 %; Neutrophils # 5.84 10^3/uL (1.8-7.7); Neutrophils % 70.4 %; Nucleated Red Blood Cells % 0 %; Platelet Count 128 10^3/cmm (130-400); Red Blood Count 3.19 10^6/uL (4.1-5.3); Red Cell Distribution Width 14.6 % (12.1-15.1); White Blood Count 8.3 10^3/uL (4.0-10.0)
[2023-05-28 05:43] VITALS: PULSE 73
[2023-05-28 06:02] LABS: Alanine Aminotransferase 65 U/L (0-33); Albumin Level 3.5 g/dL (3.5-5.2); Alkaline Phosphatase 136 U/L (35-105); Anion Gap 11.1 (5-19); Aspartate Amino Transferase 75 U/L (0-32); Blood Urea Nitrogen 11 mg/dL (8-23); Calcium 9.3 mg/dL (8.5-10.5); Carbon Dioxide 32 mmol/L (22-29); Chloride 99 mmol/L (98-107); Creatinine Clr Calc Pharmacy 43.2001; Globulin 2.5 g/dL (1.3-4.6); Glucose 129 mg/dL (65-115); Osmolality Calculated 287 mOsm/kg (285-295); Potassium 4.1 mmol/L (3.5-5.1); Sodium 138 mmol/L (136-145); Total Bilirubin 0.4 mg/dL (0.15-1.2)
--- NOTE | 2023-05-28 06:25 | PM.PN ---
Subjective Subjective: Postop day #1 status post pacemaker implantation. Ms. Lombardi appears to have rested well overnight. No concerns reported by nursing service. Vitals/I&O/Wt Last Vital Signs Temp 97.4 F L 05/28/23 03:22 Pulse 73 05/28/23 05:43 Resp 21 H 05/28/23 03:24 BP 125/87 05/28/23 03:24 Pulse Ox 96 05/28/23 01:30 O2 Del Method Nasal Cannula 05/28/23 03:22 O2 Flow Rate 3 05/28/23 03:22 05/27/23 05/27/23 05/28/23 14:59 22:59 06:59 Intake Total 1250 / 1250 240 / 1490 Output Total 400 / 405 Balance 1245 / 1245 -160 / 1085 Weight last 48 hrs Weight 94 lb Physical Exam Chest: OTHER: Surgical pressure dressing was removed. Incision is clean, dry, and intact. There is mild ecchymosis in the kita-incisional area. No evidence for pacemaker pocket fluid collection. Pacemaker was placed in a submuscular position due to the small stature and thin subcutaneous layer of Ms. Lombardi. New dressing was applied. Resp: COMMON NORMALS: normal respiratory effort and clear to auscultation bilaterally AUSCULTATION: clear to auscultation bilaterally Cardio: COMMON NORMALS: regular rate RATE: regular rate Data 05/28/23 05:04 05/28/23 05:04 A&P Assessment and plan (1) Status post cardiac pacemaker procedure: Postop day 1 status post pacemaker implantation Plan: Patient will be scheduled follow-up in the pacemaker clinic in 1 week. Activity limitations with the left upper extremity were carefully discussed with her. These will be included in the discharge orders. Attestations Medical Necessity Statement*: Postop day #1 status post pacemaker implantation secondary to sick sinus syndrome. Coding Level of Care Code Acute Code for Chg Fwd Diagnoses Status post cardiac pacemaker procedure Z95.0
[2023-05-28] MEDS: buprenorphine-naloxone 4-1 mg Film 2 EACH SUBLINGUAL (07:12)
[2023-05-28 07:54] VITALS: PULSE 96; RESP 17; O2SAT 94
[2023-05-28] MEDS: calcitriol 0.25 mcg Capsule 0.5 MCG PO (07:54)
[2023-05-28] MEDS: budesonide 0.5 mg/2 mL Neb INHALATION (07:54)
[2023-05-28] MEDS: atorvastatin 40 mg Tablet PO (07:55)
[2023-05-28] MEDS: pantoprazole DR 40 mg Tablet PO (07:55)
[2023-05-28] MEDS: levothyroxine 75 mcg Tablet PO (07:55)
[2023-05-28] MEDS: tizanidine 4 mg Tablet PO (07:55)
[2023-05-28] MEDS: cyanocobalamin 1,000 mcg Tablet 1000 MCG PO (07:55)
[2023-05-28] MEDS: famotidine 20 mg Tablet PO (07:55)
[2023-05-28] MEDS: metoprolol tartrate 25 mg Tablet 12.5 MG PO (08:02)
[2023-05-28] MEDS: roflumilast 500 mcg Tablet PO (08:02)
--- NOTE | 2023-05-28 08:56 | PM.DCS ---
Discharge Providers Date of Admission: 05/20/23 20:21 Date of Discharge: May 28, 2023 Attending Provider at Admission: Joseph De Los Santos MD Attending Provider at Discharge: Chet Bowman MD Consults: Cardiology: Dr. Ramirez/Dr. Salmon Cardiothoracic surgery: Dr. Solomon Primary Care Provider: Fei Laura DO Diagnoses at Discharge Discharge Diagnosis (1) Status post cardiac pacemaker procedure: Status: Acute Reason for Visit Reason for Visit: COPD Hospital Course Hospital Course Sakina Lombardi is a 73 year old female, who is admitted to hospital with complaints of recurrent episodes of syncope/near syncope.? Apparently the patient has seizure-like activities followed by passing out spells.? These episodes happens with or without any activities.? [facility] She was taken off the metoprolol at the time of admission but continued to have sinus pauses as high as 3 seconds.? She has some atypical chest discomfort.? Had a Myocardial perfusion imaging on the and was essentially unremarkable.? Denies any fever or chills.? 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 She had a radiation treatment.? She is on continuous oxygen. She also underwent echocardiogram which showed a normal EF of 55 to 60% with moderate AI and moderate TR along with moderate pulmonary hypertension. Cardiology was consulted and she underwent single-lead pacemaker implantation for sick sinus syndrome on 05/27. Patient's hospitalization was otherwise unremarkable. She is being discharged hemodynamically stable condition on oral linezolid for 3 days. She is to follow-up with pacemaker clinic on set appointment. Physical Exam Narrative: General: No acute distress, AO x3, NC oxygen supplementation HEENT: PERRLA, pupils bilaterally equal and reactive Chest:Bronchial breath sounds b/l, occasional rhonchi all over the lung mata CVS: S1-S2 regular, no murmurs, no tachycardia, no gallops, no rubs Abdomen: Soft, nontender, no organomegaly, bowel sounds present, morbidly obese Neuro: No focal deficits, no facial deformity, AO x3, power 5/5 in all limbs Discharge Data Studies Completed and Pending Completed Studies During Hospitalization Category Date Time Status Sestamibi Stress Test Request Routine Exams 05/20/23 22:36 Completed XR chest 1V portable [id number] Routine Exams 05/27/23 14:21 Completed XR chest 1V portable [id number] Stat Exams 05/20/23 18:25 Completed NM paulo perf SPECT r/s* [id number] Routine Nuc Med 05/21/23 07:30 Completed CV. echo complete* [id number] Routine Ultrasound 05/20/23 22:36 Completed Pending at discharge Category Date Time Status RED BLOOD CELLS [Leukocyte Reduced RBC] Routine Lab 05/26/23 08:30 Results Type and Screen Routine Lab 05/26/23 08:30 Results Radiology Impressions Chest X-Ray 05/27/23 14:21 IMPRESSION: 1. No acute cardiopulmonary process. Echocardiogram: CONCLUSIONS ?LV systolic function is normal with EF of 55 to 60%. ?Mild mitral regurgitation ?Moderate aortic regurgitation ?Moderate tricuspid regurgitation ?Moderate pulmonary hypertension ?Compared to prior echocardiogram from 05/2022, no significant ?changes are seen ?Tai Ramirez MD ?(Electronically Signed) ?Final Date:? ? ? 21 May 2023 ? 10:29 Lexiscan stress test: PERFUSION FINDINGS ?Small sized perfusion abnormality of mild severity of mid inferolateral, apical ?lateral, apical inferior and apical septal and apical fisher on rest and stress ?images. ?FUNCTIONAL RESULTS ? ? (calculated via Gated SPECT) ? Stress Image LV EF (%):? ? 89 ? Stress EDV (mL):44 ? TID:? 0.84 ? Stress ESV (mL):5 ?FUNCTIONAL FINDINGS: ?The left ventricle is normal in size. Transient Ischemia Dilatation of 0.84. ?The left ventricular ejection fraction is normal with a value of 89%. ?There is hyperdynamic left ventricular wall thickening. ?IMPRESSIONS ?1. Small sized perfusion abnormality of mild severity of mid inferolateral, ?apical lateral, apical inferior and apical septal and apical fisher. ?2. This may represent attenuation artifact or old myocardial infarction in left ?anterior descending artery territory. ?3. EKG portion of the study will be reported separately. ?4. No Coronary ischemia based on the study. ?Rosette Cunningham MD ?(Electronically Signed) ?Final Date:? ? ? 21 May 2023 ? 11:12 Laboratory Results WBC 8.3 10^3/uL (4.0-10.0) 05/28/23 05:04 RBC 3.19 10^6/uL (4.1-5.3) L 05/28/23 05:04 Hgb 9.3 g/dL (11.5-15.3) L 05/28/23 05:04 Hct 31.0 % (37.0-47.0) L 05/28/23 05:04 MCV 97.2 fl (81-99) 05/28/23 05:04 MCH 29.2 pg (28.0-34.0) 05/28/23 05:04 MCHC 30.0 g/dL (30.0-36.0) 05/28/23 05:04 RDW 14.6 % (12.1-15.1) 05/28/23 05:04 Plt Count 128 10^3/cmm (130-400) L 05/28/23 05:04 MPV 10.4 fL (7.4-10.4) 05/28/23 05:04 Neut % (Auto) 70.4 % 05/28/23 05:04 Lymph % (Auto) 12.8 % 05/28/23 05:04 Lander % (Auto) 11.7 % 05/28/23 05:04 Eos % (Auto) 4.5 % 05/28/23 05:04 Baso % (Auto) 0.1 % 05/28/23 05:04 Neut # (Auto) 5.84 10^3/uL (1.8-7.7) 05/28/23 05:04 Lymph # (Auto) 1.1 10^3/uL (0.8-4.8) 05/28/23 05:04 Lander # (Auto) 1.0 10^3/uL (0.2-0.9) H 05/28/23 05:04 Eos # (Auto) 0.4 10^3/uL (0.0-0.8) 05/28/23 05:04 Baso # (Auto) 0.0 10^3/uL (0.0-0.1) 05/28/23 05:04 Nucleated RBC % (auto) 0 % 05/28/23 05:04 Nucleated RBCs # 0.0 /100WBC 05/28/23 05:04 PT 14.70 SECONDS (12.1-14.9) 05/20/23 19:28 INR 1.11 (0.8-1.2) 05/20/23 19:28 D-Dimer 0.63 ug/mIFEU (0-0.59) H 05/20/23 20:44 Specimen Type Arterial 05/27/23 14:30 Sample Site Radial, right 05/27/23 14:30 ABG pH 7.39 (7.35-7.45) 05/27/23 14:30 ABG pCO2 51.7 mmHg (35-45) H 05/27/23 14:30 ABG pO2 129.0 mmHg (80.0-100.0) H 05/27/23 14:30 ABG HCO3 31.2 mmol/L (22-26) H 05/27/23 14:30 ABG Base Excess 5.2 mmol/L (-2.0-2.0) H 05/27/23 14:30 Ankush Test Pos 05/27/23 14:30 Hematocrit 32.8 % (37-47) L 05/27/23 14:30 O2 Delivery Device Nc 05/27/23 14:30 O2 Liters/Min 4.0 % 05/27/23 14:30 Warehouse Consultant ID Radha 05/27/23 14:30 Sodium 138 mmol/L (136-145) 05/28/23 05:04 Potassium 4.1 mmol/L (3.5-5.1) 05/28/23 05:04 Chloride 99 mmol/L (98-107) 05/28/23 05:04 Carbon Dioxide 32 mmol/L (22-29) H 05/28/23 05:04 Anion Gap 11.1 (5-19) 05/28/23 05:04 BUN 11 mg/dL (8-23) 05/28/23 05:04 Creatinine 0.6 mg/dL (0.5-0.9) 05/28/23 05:04 GFR Calculation Not Reportable 05/28/23 05:04 Glucose 129 mg/dL (65-115) H 05/28/23 05:04 POC Glucose 87 mg/dL (70-110) 05/27/23 15:27 Estimat Average Glucose 97 05/24/23 03:01 Hemoglobin A1c 5.0 % (4.0-6.0) 05/24/23 03:01 Calculated Osmolality 287 mOsm/kg (285-295) 05/28/23 05:04 Calcium 9.3 mg/dL (8.5-10.5) 05/28/23 05:04 Magnesium 1.9 mg/dL (1.7-2.3) 05/24/23 03:01 Iron 60 ug/dL (37-145) 05/23/23 02:03 TIBC 229 mcg/dl 05/23/23 02:03 % Saturation 26.2 % (20-50) 05/23/23 02:03 Unsat Iron Binding 169 ug/dL (112-347) 05/23/23 02:03 Total Bilirubin 0.4 mg/dL (0.15-1.2) 05/28/23 05:04 AST 75 U/L (0-32) H 05/28/23 05:04 ALT 65 U/L (0-33) H 05/28/23 05:04 Alkaline Phosphatase 136 U/L (35-105) H 05/28/23 05:04 Troponin T Gen 5 ng/L 16 ng/L (0-10) H 05/22/23 20:39 Troponin T Baseline 14 ng/L (0-10) H 05/20/23 19:28 Troponin T 120 Minute 14.90 ng/L (0-10) H 05/20/23 20:44 Delta Troponin T 0.90 ABS# (0-10) 05/20/23 20:44 Troponin T Hi Sens 6Hr 15.64 ng/L (0-10) H 05/21/23 01:49 Troponin T Hi Sens 6Hr Delta 1.64 ng/L (0-12) 05/21/23 01:49 NT-Pro-B Natriuret Pep 630 pg/mL (0-125) H 05/20/23 19:28 Total Protein 6.0 g/dL (6.6-8.7) L 05/28/23 05:04 Albumin 3.5 g/dL (3.5-5.2) 05/28/23 05:04 Globulin 2.5 g/dL (1.3-4.6) 05/28/23 05:04 Vitamin B12 290 pg/mL (232-1245) 05/23/23 02:03 Folate 5.6 ng/mL (4.8-37.3) 05/24/23 03:01 Procalcitonin 0.02 ng/mL (0-0.5) 05/20/23 20:44 TSH 1.03 uIU/mL (0.27-4.20) 05/20/23 20:44 Blood Type A Positive 05/26/23 08:30 Rho(D) Type Positive 05/26/23 08:30 Antibody Screen Negative 05/26/23 08:30 Crossmatch See Detail 05/26/23 08:30 Vitals Last Vital Signs Temp 97.4 F L 05/28/23 03:22 Pulse 96 05/28/23 07:54 Resp 17 05/28/23 07:54 BP 125/87 05/28/23 03:24 Pulse Ox 94 05/28/23 07:54 O2 Del Method Nasal Cannula 05/28/23 07:54 O2 Flow Rate 2 05/28/23 07:54 Discharge Plan Discharge Patient Disposition: Home Condition: Stable Prescriptions: New famotidine 20 mg Tablet 20 mg PO BID Qty: 60 0RF metoprolol tartrate 25 mg Tablet 12.5 mg PO BID@0900,2100 Qty: 30 0RF Zyvox 100 mg/5 mL suspension for reconstitution 400 mg PO BID 3 Days Qty: 120 0RF Continued magnesium 30 mg tablet 30 mg PO DAILY Qty: 90 6RF budesonide 0.5 mg/2 mL suspension for nebulization 0.5 mg inhalation BID Qty: 120 11RF Daliresp 500 mcg tablet 500 mcg PO DAILY Qty: 90 3RF tizanidine 4 mg tablet 4 mg PO TID PRN (Reason: Muscle Spasticity) Qty: 90 1RF levothyroxine 75 mcg capsule 75 mcg PO DAILY Qty: 30 3RF Rx Instructions: WEDNESDAY THROUGH WEDNESDAY ONLY (DME) oxygen See Rx Instructions .Route .MEDSUPPLY Qty: 1 0RF Rx Instructions: HOME FILL SYSTEM- CONTINOUS FLOW calcitriol [Rocaltrol] 0.5 mcg capsule 0.5 mcg PO DAILY Qty: 90 3RF atorvastatin 40 mg tablet 40 mg PO DAILY Qty: 90 3RF formoterol fumarate 20 mcg/2 mL solution for nebulization 2 ml inhalation BID Qty: 120 11RF ipratropium-albuterol 0.5 mg-3 mg(2.5 mg base)/3 mL solution for nebulization 3 ml inhalation Q6H PRN (Reason: wheezing) Qty: 90 3RF nitroglycerin 0.4 mg tablet, sublingual See Rx Instructions .ROUTE .COMPLEX Qty: 50 3RF Dose Instruction: DISSOLVE 1 TABLET UNDER THE TONGUE EVERY 5 MINUTES NEEDED FOR CHEST PAIN. DO NOT EXCEED A TOTAL OF 3 DOSES IN 15 MINUTES Rx Instructions: DISSOLVE 1 TABLET UNDER THE TONGUE EVERY 5 MINUTES NEEDED FOR CHEST PAIN. DO NOT EXCEED A TOTAL OF 3 DOSES IN 15 MINUTES (DME) 2 inch toilet seat See Rx Instructions .Route .MEDSUPPLY Qty: 1 0RF Rx Instructions: Please issue 2 inch, soft toilet seat. albuterol sulfate [Ventolin HFA] 90 mcg/actuation HFA aerosol inhaler See Rx Instructions .ROUTE .COMPLEX Qty: 18 3RF Dose Instruction: inhale TWO puffs into lungs EVERY 4 HOURS NEEDED FOR SHORTNESS OF BREATH OR wheezing Rx Instructions: inhale TWO puffs into lungs EVERY 4 HOURS NEEDED FOR SHORTNESS OF BREATH OR wheezing buprenorphine-naloxone [Suboxone] 8-2 mg Film 1 film SUBLINGUAL Q8H Hold Instructions: Resume on 05/28/20. May reinstitute in the next 7 days, but do not use with [place] and tramadol diphenhydramine HCl [Benadryl] 25 mg Capsule 25 mg PO BID MDD SEE PHARAMCY COMMENT PRN (Reason: Allergy Symptoms) montelukast 4 mg tablet,chewable 8 mg PO DAILY lidocaine 5 % adhesive patch,medicated 1 patch transdermal DAILY Discontinued metoprolol tartrate 25 mg tablet See Rx Instructions .ROUTE .COMPLEX Qty: 180 3RF Dose Instruction: TAKE ONE TABLET BY MOUTH TWICE DAILY Rx Instructions: TAKE ONE TABLET BY MOUTH TWICE DAILY potassium chloride 20 mEq/15 mL liquid 8 meq PO DAILY PRN (Reason: hypokalemia) Qty: 1800 3RF bumetanide 0.5 mg tablet 0.5 mg PO DAILY Qty: 30 5RF Discharge Orders: Discharge Order (Routine); Ordered 05/28/23 Ordered By: Chet Bowman Referrals: [facility] [Provider Group] - 1 week (Any further appointments will be scheduled while you are at your Jessica Edmondson appointment. Thank you. Pacemaker clinic) Fei Laura DO [Primary Care Provider] - 06/03/23 2:45 pm Jessica Connelly FNP [Nurse Practitioner] - 06/11/23 11:15 am Discharge Diet: Usual diet Discharge Activity: Limit activity as instructed Patient Instructions: Metoprolol (By mouth) (Lopressor, Toprol XL), Famotidine (By mouth) (Acid Controller, Acid Biometrician, Pepcid AC, Pepcid), Linezolid (By mouth) (Zyvox), Bradycardia (DC), Opioid Safety, Post Pacemaker - Solomon Activity Restrictions/Additional Instructions: May remove bandage in 2 days May begin daily showers in 3 days Dry incision carefully after showers. May re-cover if desired to prevent irritation from clothing. No swimming or tub baths x 2 weeks No ointments on incision Report drainage, redness, heat, increased pain, fever, or swelling to clinic Do not raise left arm above eye level for 2 weeks. No heavy lifting, pulling, or pushing with left arm for 2 weeks. Discharge Attestations Time Spent in Discharge Care*: greater than 30 min Specific Discharge Activities: educating patient, educating and/or supporting family/caregiver, discussing with pcp/other providers, discussing with case resource manager/social workers/dc planners, documenting/other paperwork and evaluating patient/reviewing data Quality Metrics Clinical Quality Measures [ No reported AMI, CVA or VTE this stay] Coding Level of Care Code 82601 Total time (in minutes) for Discharge: 60 Diagnoses Status post cardiac pacemaker procedure Z95.0
[2023-05-28 11:19] VITALS: PULSE 96; RESP 17; O2SAT 94
--- NOTE | 2023-05-28 11:46 | PC.NURSE ---
right upper chest port-a-cath flushed with 500 iu heparin and de-accessed using sterile technique.had good blood return and flushed easily.discharge instructions given and explained to pt and pt's son.they verb understanding.sling in place on pt's arm.discharged via w/c to exit at this time.son to drive pt home.
== END 2023-05-28 11:51 | disposition home or self-care (01) | DRG 243 ==
LOC: ER 20:51 → ICU 21:36 → CSU 05-22 15:18
PROVIDERS: Anesthesiology; Internal Medicine; Thoracic Surgery (Cardiothoracic Vascular Surgery); Admitting Provider Internal Medicine; Emergency Provider Emergency Medicine; PCP Family Medicine; Visit Provider Student in an Organized Health Care Education/Training Program
PROC: 0JH604Z Insertion of Pacemaker, Single Chamber into Chest Subcutaneous Tissue and Fascia, Open Approach (ICD-10-PCS; 2023-05-27 12:00)
DX: I49.5 Sick sinus syndrome (principal); I50.32 Chronic diastolic (congestive) heart failure; Z85.118 Personal history of other malignant neoplasm of bronchus and lung; Z85.850 Personal history of malignant neoplasm of thyroid; J43.1 Panlobular emphysema; Z92.3 Personal history of irradiation; Z99.81 Dependence on supplemental oxygen; I27.20 Pulmonary hypertension, unspecified; Z79.51 Long term (current) use of inhaled steroids; Z95.828 Presence of other vascular implants and grafts; I11.0 Hypertensive heart disease with heart failure; I25.10 Atherosclerotic heart disease of native coronary artery without angina pectoris; Z86.73 Personal history of transient ischemic attack (TIA), and cerebral infarction without residual deficits; E78.5 Hyperlipidemia, unspecified; E89.0 Postprocedural hypothyroidism; F17.210 Nicotine dependence, cigarettes, uncomplicated; I07.1 Rheumatic tricuspid insufficiency; I27.81 Cor pulmonale (chronic)
CPT/HCPCS: 36415; 36416; 36591; 36600; 71045; 76000; 78452; 80048; 80053; 82607; 82746; 82803; 82962; 83036; 83540; 83550; 83735; 83880; 84145; 84443; 84484; 85025; 85378; 85610; 86850; 86900; 86920; 93005; 93017; 93306; 94640; 96372; 96375; 99285; A9500; C1779; C1786; J0573; J1642; J1644; J2060; J2270; J2370; J2405; J2704; J2785; J3010; J3370; J3475; J3490; J7030; J7050; J7120; J7512; J7626

== ENCOUNTER 2023-06-04 12:09 | Emergency (ER) | payer MEDICAID, SELFPAY ==
[2023-06-04 12:14] VITALS: BP 171/95; PULSE 107; RESP 19; TEMP 36.7; O2SAT 94; BMI 17.9
--- NOTE | 2023-06-04 12:30 | CT_ITS ---
WS: [id number] CT cervical spine. Additional two-dimensional coronal and sagittal reconstruction was performed. 2022 Clinical Data: trauma Comparison: CT cervical spine, 03/21/2018. DLP: 994.[address] scans at [facility] use at least one of these dose optimization techniques: automated e xposure control; mA and/or kV adjustment per patient size (includes targeted exams where dose is matc hed to clinical indication); or iterative reconstruction. Findings: No compression fractures are seen. There is degenerative disc narrowing at every level from C3-C4 thr ough C7-T1 with anterior and posterior osteophyte formation.. The spinous processes are in good align ment. The odontoid is unremarkable. There is no prevertebral soft tissue swelling. The soft tissues o f the cervical spine are not remarkable. There are emphysematous changes of the upper lobes. There is an infusion catheter during the right subclavian vein. CT/CT cervical spin wo con* [id number] Impression: 1. Negative for cervical spine fracture. 2. Multilevel degenerative disc narrowing with osteoarthritis from C3 through T 1.
--- NOTE | 2023-06-04 12:33 | CT_ITS ---
WS: [id number] CT scan of the head, 06/04/2023 Clinical Data: trauma Comparison: 05/07/2023 DLP: 994.[address] scans at [facility] use at least one of these dose optimization techniques: automated e xposure control; mA and/or kV adjustment per patient size (includes targeted exams where dose is matc hed to clinical indication); or iterative reconstruction. Findings: The ventricular system is normal without shift. There is minimal loss of intracerebral volume. 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 No recent infarct or hemorrhage is seen. Ther e are no abnormal intracerebral masses. The cerebellum and brainstem are not remarkable. Bony windows of the skull and skull base show no fractures or erosions. The mastoid air cells, industrial design intern al auditory canals, sella turcica, intraorbital contents, and paranasal sinuses are unremarkable. CT/CT head wo con* [id number] Impression: Negative for acute intracranial abnormality.
--- NOTE | 2023-06-04 12:33 | ECG_ITS ---
[facility] Test Date: 2023-06-04 Pat Name: Sakina Lombardi Department: Room: Gender: Female Lactation Nurse: : 1950 Requested By: Bala Davila Order Number: [id number] Barney MD: Tai Ramirez M.D. Measurements Intervals [place] Rate: 102 P: 0 KS: 0 QRS: 58 QRSD: 81 T: 56 QT: 339 QTc: 442 Interpretive Statements ATRIAL FIBRILLATION WITH RAPID VENTRICULAR RESPONSE NONSPECIFIC T-WAVE ABNORMALITY ABNORMAL RHYTHM ECG Compared to ECG 05/22/2023 20:49:07 T-wave abnormality now present Sinus rhythm no longer present Sinus arrhythmia no longer present Electronically Signed On 06-04-2023 16:14:30 CDT by Tai Ramirez M.D. [id number]
[2023-06-04 13:10] LABS: Basophils % 0.2 %; Eosinophils # 0.1 10^3/uL (0.0-0.8); Eosinophils % 0.8 %; Hematocrit 31.7 % (37.0-47.0); Hemoglobin 10.2 g/dL (11.5-15.3); Lymphocytes # 0.4 10^3/uL (0.8-4.8); Lymphocytes % 3.3 %; Mean Corpuscular HGB Conc 32.2 g/dL (30.0-36.0); Mean Corpuscular Hemoglobin 29.9 pg (28.0-34.0); Mean Platelet Volume 8.9 fL (7.4-10.4); Monocytes # 1.1 10^3/uL (0.2-0.9); Monocytes % 8.8 %; Neutrophils # 10.85 10^3/uL (1.8-7.7); Neutrophils % 86.4 %; Nucleated Red Blood Cells % 0 %; Platelet Count 175 10^3/cmm (130-400); Red Blood Count 3.41 10^6/uL (4.1-5.3); Red Cell Distribution Width 14.5 % (12.1-15.1); White Blood Count 12.6 10^3/uL (4.0-10.0)
[2023-06-04 13:20] LABS: Alanine Aminotransferase 25 U/L (0-33); Albumin Level 3.4 g/dL (3.5-5.2); Alkaline Phosphatase 138 U/L (35-105); Anion Gap 13.7 (5-19); Aspartate Amino Transferase 25 U/L (0-32); Blood Urea Nitrogen 10 mg/dL (8-23); Calcium 8.8 mg/dL (8.5-10.5); Carbon Dioxide 30 mmol/L (22-29); Chloride 91 mmol/L (98-107); Globulin 3.7 g/dL (1.3-4.6); Glucose 168 mg/dL (65-115); Osmolality Calculated 277 mOsm/kg (285-295); Sodium 132 mmol/L (136-145); Total Bilirubin 0.8 mg/dL (0.15-1.2); Total Protein 7.1 g/dL (6.6-8.7)
[2023-06-04 13:26] LABS: Potassium 2.7 mmol/L (3.5-5.1)
--- NOTE | 2023-06-04 13:42 | ED_ITS ---
HPI - Fall General: Chief Complaint: Fall Stated Complaint: fall Time Seen by Provider: 06/04/23 12:15 Source: patient Mode of arrival: EMS History of Present Illness: 73-year-old female [facility] ED PFSH: Medical History Atypical chest pain Patient had a cardiac catheterization in 2009 and was found to have no significant coronary disease. Atypical chest pain Benign essential hypertension CAD (coronary artery disease) Cor pulmonale CVA (cerebral vascular accident) Dyslipidemia (high LDL; low HDL) History of COPD Hx of carotid stenosis Nicotine dependence, cigarettes, with unspecified nicotine-induced disorders SOB (shortness of breath) Thyroid cancer Surgical History H/O thyroidectomy History of ankle surgery History of back surgery History of bilateral carpal tunnel release History of bronchoscopy History of hip surgery History of lumpectomy History of rectal surgery Hx of hysterectomy Port-A-Cath in place S/P hardware removal Spine Family History Brother Leukemia Diabetes Lung disease Mother Anesthesia complication CAD (coronary artery disease) Father Bleeding disorder Clotting disorder CAD (coronary artery disease) Cancer Stroke Sister CAD (coronary artery disease) Chronic kidney disease (CKD) Lung disease Family/Other Diabetes Stroke Grandfather Suicide Denies family history of Dementia Social History Smoking and tobacco status: current every day smoker (0.5 ppd) cigarettes Packs smoked per day: 0.5 Years cigarettes smoked: 55 [ Other cigarette details: Hx of 2 PPD x 50 Years, started at age 12] Quit status (tobacco): considering quitting Second hand smoke exposure: Yes Smoking risk assessment/counseling performed?: Yes Alcohol intake: never Desire information about alcohol rehabilitation?: No Counseling given: No Substance/Drug Use: never Desire information about substance/drug rehabilitation?: No Counseling given: No Adopted: No Lives independently: Yes Household members: none Housing: Apartment Marital status: / Current occupational status: disabled Do you think of yourself as: Straight/Heterosexual Current gender identity: Female Course Vital Signs: Vital signs: Vital Signs Temperature 98.1 F 06/04/23 12:14 Pulse Rate 93 06/04/23 16:30 Respiratory Rate 19 H 06/04/23 12:14 Blood Pressure 152/64 06/04/23 16:30 Pulse Oximetry 94 06/04/23 12:14 Oxygen Delivery Me thod Nasal Cannula 06/04/23 12:14 Oxygen Flow Rate 3 06/04/23 12:14 MDM - Fall Medical Decision Making Patient has had syncopal episodes like this for months she has had extensive work-up at 1 time they thought it was a sick sinus syndrome she had a pacemaker placed. She has not had any palpitations states she is been being treated recently for an exacerbation of COPD she is satting normally her heart rate is controlled at this. We will discharge her home and have her follow-up with her primary care doctor return if she has further problems. Medical Records I reviewed the patient's medical records. Lab Data I reviewed the patient's lab results. 06/04/23 12:54 06/04/23 12:54 Radiology Impressions Cervical Spine CT 06/04/23 12:30 Impression: 1. Negative for cervical spine fracture. 2. Multilevel degenerative disc narrowing with osteoarthritis from C3 through T1. Head CT 06/04/23 12:33 Impression: Negative for acute intracranial abnormality. Laboratory Results WBC 12.6 10^3/uL (4.0-10.0) H 06/04/23 12:54 RBC 3.41 10^6/uL (4.1-5.3) L 06/04/23 12:54 Hgb 10.2 g/dL (11.5-15.3) L 06/04/23 12:54 Hct 31.7 % (37.0-47.0) L 06/04/23 12:54 MCV 93.0 fl (81-99) 06/04/23 12:54 MCH 29.9 pg (28.0-34.0) 06/04/23 12:54 MCHC 32.2 g/dL (30.0-36.0) 06/04/23 12:54 RDW 14.5 % (12.1-15.1) 06/04/23 12:54 Plt Count 175 10^3/cmm (130-400) 06/04/23 12:54 MPV 8.9 fL (7.4-10.4) 06/04/23 12:54 Neut % (Auto) 86.4 % 06/04/23 12:54 Lymph % (Auto) 3.3 % 06/04/23 12:54 Coleman % (Auto) 8.8 % 06/04/23 12:54 Eos % (Auto) 0.8 % 06/04/23 12:54 Baso % (Auto) 0.2 % 06/04/23 12:54 Neut # (Auto) 10.85 10^3/uL (1.8-7.7) H 06/04/23 12:54 Lymph # (Auto) 0.4 10^3/uL (0.8-4.8) L 06/04/23 12:54 Coleman # (Auto) 1.1 10^3/uL (0.2-0.9) H 06/04/23 12:54 Eos # (Auto) 0.1 10^3/uL (0.0-0.8) 06/04/23 12:54 Baso # (Auto) 0.0 10^3/uL (0.0-0.1) 06/04/23 12:54 Nucleated RBC % (auto) 0 % 06/04/23 12:54 Nucleated RBCs # 0.0 /100WBC 06/04/23 12:54 Sodium 132 mmol/L (136-145) L 06/04/23 12:54 Potassium 2.7 mmol/L (3.5-5.1) L* 06/04/23 12:54 Chloride 91 mmol/L (98-107) L 06/04/23 12:54 Carbon Dioxide 30 mmol/L (22-29) H 06/04/23 12:54 Anion Gap 13.7 (5-19) 06/04/23 12:54 BUN 10 mg/dL (8-23) 06/04/23 12:54 Creatinine 0.8 mg/dL (0.5-0.9) 06/04/23 12:54 GFR Calculation Not Reportable 06/04/23 12:54 Glucose 168 mg/dL (65-115) H 06/04/23 12:54 Calculated Osmolality 277 mOsm/kg (285-295) L 06/04/23 12:54 Calcium 8.8 mg/dL (8.5-10.5) 06/04/23 12:54 Total Bilirubin 0.8 mg/dL (0.15-1.2) 06/04/23 12:54 AST 25 U/L (0-32) 06/04/23 12:54 ALT 25 U/L (0-33) 06/04/23 12:54 Alkaline Phosphatase 138 U/L (35-105) H 06/04/23 12:54 Total Protein 7.1 g/dL (6.6-8.7) 06/04/23 12:54 Albumin 3.4 g/dL (3.5-5.2) L 06/04/23 12:54 Globulin 3.7 g/dL (1.3-4.6) 06/04/23 12:54 Urine Color Yellow (Yellow) 06/04/23 15:00 Urine Appearance Clear (CLEAR) 06/04/23 15:00 Urine pH 6.5 (5-7) 06/04/23 15:00 Ur Specific [place] 1.005 (1.005-1.030) 06/04/23 15:00 Urine Protein Neg (Negative) 06/04/23 15:00 Urine Glucose (UA) Norm (Normal) 06/04/23 15:00 Urine Ketones Negative (Negative) 06/04/23 15:00 Urine Blood 3+ (Negative) H 06/04/23 15:00 Urine Nitrate Negative (Negative) 06/04/23 15:00 Urine Bilirubin Neg (Negative) 06/04/23 15:00 Urine Urobilinogen 1 mg/dL (Negative) H 06/04/23 15:00 Ur Leukocyte Esterase Trace (Negative) H 06/04/23 15:00 Urine RBC 5-10 /hpf (0-2) H 06/04/23 15:00 Urine WBC 5-10 /hpf (0-5) H 06/04/23 15:00 Ur Squamous Epith Cells 0-4 /hpf (0-5) H 06/04/23 15:00 Amorphous Sediment Not Reportable 06/04/23 15:00 Discharge Plan Discharge Patient Disposition: Home Clinical Impression: Syncope, COPD (chronic obstructive pulmonary disease) Condition: Stable Prescriptions: No Action magnesium 30 mg tablet 30 mg PO DAILY Qty: 90 6RF doxycycline hyclate 100 mg capsule 100 mg PO BID Qty: 20 0RF prednisone 5 mg/mL concentrate 40 mg PO DAILY 5 Days Qty: 40 0RF baclofen 5 mg tablet 5 mg PO Q8H Qty: 30 2RF budesonide 0.5 mg/2 mL suspension for nebulization 0.5 mg inhalation BID Qty: 120 11RF Daliresp 500 mcg tablet 500 mcg PO DAILY Qty: 90 3RF levothyroxine 75 mcg capsule 75 mcg PO DAILY Qty: 30 3RF Rx Instructions: WEDNESDAY THROUGH WEDNESDAY ONLY (DME) oxygen See Rx Instructions .Route .MEDSUPPLY Qty: 1 0RF Rx Instructions: HOME FILL SYSTEM- CONTINOUS FLOW calcitriol [Rocaltrol] 0.5 mcg capsule 0.5 mcg PO DAILY Qty: 90 3RF atorvastatin 40 mg tablet 40 mg PO DAILY Qty: 90 3RF formoterol fumarate 20 mcg/2 mL solution for nebulization 2 ml inhalation BID Qty: 120 11RF ipratropium-albuterol 0.5 mg-3 mg(2.5 mg base)/3 mL solution for nebulization 3 ml inhalation Q6H PRN (Reason: wheezing) Qty: 90 3RF nitroglycerin 0.4 mg tablet, sublingual See Rx Instructions .ROUTE .COMPLEX Qty: 50 3RF Dose Instruction: DISSOLVE 1 TABLET UNDER THE TONGUE EVERY 5 MINUTES NEEDED FOR CHEST PAIN. DO NOT EXCEED A TOTAL OF 3 DOSES IN 15 MINUTES Rx Instructions: DISSOLVE 1 TABLET UNDER THE TONGUE EVERY 5 MINUTES NEEDED FOR CHEST PAIN. DO NOT EXCEED A TOTAL OF 3 DOSES IN 15 MINUTES albuterol sulfate [Ventolin HFA] 90 mcg/actuation HFA aerosol inhaler See Rx Instructions .ROUTE .COMPLEX Qty: 18 3RF Dose Instruction: inhale TWO puffs into lungs EVERY 4 HOURS NEEDED FOR SHORTNESS OF BREATH OR wheezing Rx Instructions: inhale TWO puffs into lungs EVERY 4 HOURS NEEDED FOR SHORTNESS OF BREATH OR wheezing buprenorphine-naloxone [Suboxone] 8-2 mg Film 1 film SUBLINGUAL Q8H Hold Instructions: Resume on 05/28/20. May reinstitute in the next 7 days, but do not use with [place] and tramadol diphenhydramine HCl [Benadryl] 25 mg Capsule 25 mg PO BID MDD SEE PHARAMCY COMMENT PRN (Reason: Allergy Symptoms) montelukast 4 mg tablet,chewable 8 mg PO DAILY lidocaine 5 % adhesive patch,medicated 1 patch transdermal DAILY famotidine 20 mg Tablet 20 mg PO BID Qty: 60 0RF metoprolol tartrate 25 mg Tablet 12.5 mg PO BID@0900,2100 Qty: 30 0RF Discharge Orders: Discharge ED (Routine); Ordered 06/04/23 Ordered By: Bala Zapata Referrals: Fei Laura DO [Primary Care Provider] - Discharge Diet: Usual diet Discharge Activity: Increase activity as tolerated Patient Instructions: Opioid Safety, Pain Management Activity Restrictions/Additional Instructions: You are seen today after syncopal episode. No new emergent findings were noted. Since you have had this for some time and has had extensive work-up and intervention in the past recommend you continue to follow-up with your primary care doctor and specialist as needed. Coding Level of Care Code ED Molder Offbearer for Delmer Ray
[2023-06-04] MEDS: potassium chloride oral liq 20 mEq/15 mL UDC 40 MEQ PO (14:21)
[2023-06-04 15:47] LABS: Add Urine Microscopic? YES; Bilirubin Urine Neg (Negative); Blood Urine 3+ (Negative); Glucose Urine UA Norm (Normal); Ketones Urine Negative (Negative); Leukocyte Esterase Urine Trace (Negative); Nitrate Urine Negative (Negative); Protein Urine Neg (Negative); Specific Gravity, Urine 1.005 (1.005-1.030); Urine Appearance Clear (CLEAR); Urine Color Yellow (Yellow); Urobilinogen Urine 1 mg/dL (Negative); pH Urine 6.5 (5-7)
[2023-06-04 15:48] LABS: Add Urine Culture? No; Squamous Epithelial Cell Urine 0-4 /hpf (0-5)
[2023-06-04 16:30] VITALS: BP 152/64; BP 165/67; BP 165/73; PULSE 101; PULSE 93; PULSE 97
== END 2023-06-04 17:35 | disposition home or self-care (01) ==
PROVIDERS: Emergency Provider Family Medicine; PCP Family Medicine
DX: R55 Syncope and collapse (principal); J44.9 Chronic obstructive pulmonary disease, unspecified; F17.210 Nicotine dependence, cigarettes, uncomplicated; I25.10 Atherosclerotic heart disease of native coronary artery without angina pectoris; Z86.73 Personal history of transient ischemic attack (TIA), and cerebral infarction without residual deficits; I10 Essential (primary) hypertension; E78.5 Hyperlipidemia, unspecified; Z85.850 Personal history of malignant neoplasm of thyroid
CPT/HCPCS: 70450; 72125; 80053; 81001; 85025; 93005; 99285

== ENCOUNTER → 2023-06-07 15:36 | Outpatient (BNVA) | payer MEDICAID, SELFPAY | PROVIDERS: PCP Family Medicine; Visit Provider Nurse Practitioner Family | DX: Z95.0 Presence of cardiac pacemaker (principal) | CPT/HCPCS: 93288; 99214 ==

== ENCOUNTER → 2023-06-18 10:21 | Outpatient (BNVA) | payer MEDICAID, SELFPAY | PROVIDERS: PCP Family Medicine; Visit Provider Nurse Practitioner Family | DX: I10 Essential (primary) hypertension (principal); I25.118 Atherosclerotic heart disease of native coronary artery with other forms of angina pectoris; R07.89 Other chest pain | CPT/HCPCS: 80048 ==

== ENCOUNTER 2023-06-23 14:30 | Oncology outpatient (recurring) (ONCR) | payer MEDICAID, SELFPAY ==
[2023-06-23 14:51] VITALS: BP 131/70; PULSE 96; RESP 18; TEMP 37.2
--- NOTE | 2023-06-23 15:35 | CT_ITS ---
WS: [id number] CT chest wo con [id number] HISTORY: FOLLOW UP ON LUNG NODULES TECHNIQUE: Axial imaging performed through the thorax. Coronal and sagittal reformats are submitted. All CT scans at [facility] use at least one of these dose optimization techniques: automated exposure control; mA and/or kV adjustment per patient size (includes targeted exams where dose is mat ched to clinical indication); or iterative reconstruction. CONTRAST: None DLP: 154.56 mGy.cm COMPARISON: 03/05/2023, 12/04/2022 Lungs and central airway: Chronic emphysema. Markedly hyperinflated lungs. The areas of linear opacif ication and nodularity at the RIGHT lung base have moderately improved. Continued improvement since . Mild bronchial wall thickening and interstitial thickening persists. Partially calcified tr eated neoplasm in the RIGHT lower lobe measures 13 x 10 mm and is unchanged. Pleura: Normal. No pleural effusion. Heart and pericardium: Normal size heart with no pericardial effusion. Mediastinum and tia: No mediastinum or hilar adenopathy. Vessels: Severe atherosclerosis aorta. Dilated pulmonary artery. Extensive coronary artery calcificat ions. Chest wall and lower neck: No soft tissue masses. Upper abdomen: Prior cholecystectomy. Increased air distention within the visualized colon of the upp er abdomen. Osseous structures: Increase in thoracic kyphosis. Osteopenia. CT/CT chest wo con [id number] IMPRESSION: 1. Moderate improvement in the opacifications in the RIGHT lower lobe since 03/05/2023. No progression of consolidation or nodules. 2. Treated RIGHT lower lobe neoplasm measures 13 x 10 mm and partially calcifi ed is stable. 3. Severe chronic emphysema. 4. Extensive atherosclerosis aorta.
== END 2023-06-28 23:59 | disposition home or self-care (01) ==
PROVIDERS: PCP Family Medicine; Visit Provider Nurse Practitioner Family
DX: C34.31 Malignant neoplasm of lower lobe, right bronchus or lung (principal); R06.02 Shortness of breath; J98.11 Atelectasis; W19.XXXA Unspecified fall, initial encounter; Z79.01 Long term (current) use of anticoagulants; J44.9 Chronic obstructive pulmonary disease, unspecified; J96.11 Chronic respiratory failure with hypoxia; Z99.81 Dependence on supplemental oxygen; I35.1 Nonrheumatic aortic (valve) insufficiency; R60.0 Localized edema; R42 Dizziness and giddiness; F17.210 Nicotine dependence, cigarettes, uncomplicated; Z45.2 Encounter for adjustment and management of vascular access device; C34.90 Malignant neoplasm of unspecified part of unspecified bronchus or lung; I25.10 Atherosclerotic heart disease of native coronary artery without angina pectoris
CPT/HCPCS: 36591; 71250; 80048; 83880; 96523; J1642

== ENCOUNTER → 2023-06-24 16:03 | Outpatient (BNVA) | payer MEDICAID, SELFPAY | PROVIDERS: PCP Family Medicine; Visit Provider Emergency Medicine | DX: S99.922A Unspecified injury of left foot, initial encounter (principal); X58.XXXA Exposure to other specified factors, initial encounter | CPT/HCPCS: 73630 ==

== ENCOUNTER → 2023-06-30 11:01 | Outpatient (BNVA) | payer MEDICAID, SELFPAY | PROVIDERS: PCP Family Medicine; Visit Provider Podiatrist Foot & Ankle Surgery | DX: S90.32XA Contusion of left foot, initial encounter (principal); X58.XXXA Exposure to other specified factors, initial encounter | CPT/HCPCS: 99213 ==

== ENCOUNTER → 2023-07-13 13:23 | Outpatient (BNVA) | payer MEDICAID, SELFPAY | PROVIDERS: PCP Family Medicine; Visit Provider Podiatrist Foot & Ankle Surgery | DX: S90.32XA Contusion of left foot, initial encounter (principal); X58.XXXA Exposure to other specified factors, initial encounter | CPT/HCPCS: 73630; 99213 ==

== ENCOUNTER 2023-07-22 15:48 | Oncology outpatient (recurring) (ONCR) | payer MEDICAID, SELFPAY ==
[2023-07-22 15:59] VITALS: BP 132/60; PULSE 82; RESP 16; TEMP 37.2; O2SAT 90
== END 2023-07-29 23:59 | disposition home or self-care (01) ==
PROVIDERS: PCP Family Medicine; Visit Provider Internal Medicine Medical Oncology
DX: Z45.2 Encounter for adjustment and management of vascular access device
CPT/HCPCS: J1642

== ENCOUNTER 2023-07-26 17:03 | Inpatient (IN) | payer MEDICAID, SELFPAY ==
[2023-07-26 17:11] VITALS: BP 135/69; PULSE 50; RESP 24; TEMP 37.1; O2SAT 91; BMI 16.6
--- NOTE | 2023-07-26 18:23 | XRR_ITS ---
PROCEDURE INFORMATION: Exam: XR Chest Exam date and time: 07/26/2023 6:37 PM Age: 73 years old Clinical indication: Pain; Chest pressure; Prior surgery; Surgery date: 1-6 months; Surgery type: Pacer port; Additional info: Cp TECHNIQUE: Imaging protocol: Radiologic exam of the chest. Views: 1 view. COMPARISON: CT chest con [id number] 06/23/2023 3:53 PM FINDINGS: Tubes, catheters and devices: Stable right Mediport catheter. Stable left pacemaker. Stable pain management/neurostimulator device. Lungs: Stable COPD . Pleural spaces: Unremarkable. No pleural effusion. No pneumothorax. Heart/Mediastinum: Unremarkable. No cardiomegaly. Bones/joints: Unremarkable. Organs: Stable cholecystectomy. XR/XR chest 1V portable [id number] IMPRESSION: 1. Stable right Mediport catheter. 2. Stable COPD .
--- NOTE | 2023-07-26 21:17 | ECG_ITS ---
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 Measurements Intervals [place] Rate: 107 P: 76 IL: 136 QRS: 50 QRSD: 76 T: 59 QT: 321 QTc: 430 Interpretive Statements Multifocal atrial tachycardia Poor R wave progression compared to ECG 06/04/2023 15:14:34 Atrial fibrillation no longer present T-wave abnormality no longer present Electronically Signed On 07-27-2023 23:54:24 CDT by Chante Salmon M.D. [email or web address]
[2023-07-26 21:27] LABS: Basophils % 0.2 %; Eosinophils % 0.1 %; Hematocrit 34.1 % (36-47); Lymphocytes # 1.2 10^3/uL (0.8-4.8); Lymphocytes % 8.9 %; Mean Corpuscular HGB Conc 29.9 g/dL (30-55); Mean Corpuscular Hemoglobin 27.7 pg (27-33); Mean Corpuscular Volume 92.7 fl (85-98); Mean Platelet Volume 9.6 fL (7.4-10.4); Monocytes # 1.9 10^3/uL (0.2-0.9); Monocytes % 14.1 %; Neutrophils # 10.34 10^3/uL (1.8-7.7); Neutrophils % 76.2 %; Nucleated Red Blood Cells % 0 %; Platelet Count 180 10^3/cmm (157-399); Red Blood Count 3.68 10^6/uL (3.85-5.65); Red Cell Distribution Width 16.9 % (12.1-15.1); White Blood Count 13.58 10^3/uL (3.29-11.43)
[2023-07-26 21:46] LABS: Alanine Aminotransferase 11 U/L (0-33); Albumin Level 3.8 g/dL (3.5-5.2); Alkaline Phosphatase 115 U/L (35-105); Anion Gap 12.2 (5-19); Aspartate Amino Transferase 28 U/L (0-32); Blood Urea Nitrogen 10 mg/dL (8-23); Calcium 9.2 mg/dL (8.5-10.5); Carbon Dioxide 32 mmol/L (22-29); Chloride 96 mmol/L (98-107); Globulin 3.9 g/dL (1.3-4.6); Glucose 93 mg/dL (65-115); Osmolality Calculated 279 mOsm/kg (285-295); Potassium 5.2 mmol/L (3.5-5.1); Sodium 135 mmol/L (136-145); Total Bilirubin 0.8 mg/dL (0.15-1.2); Total Protein 7.7 g/dL (6.6-8.7)
--- NOTE | 2023-07-26 21:50 | USR_ITS ---
PROCEDURE INFORMATION: Exam: US Duplex Left Upper Extremity Veins, Limited Exam date and time: 07/26/2023 10:06 PM Age: 73 years old Clinical indication: Swelling (edema) of limb; Upper extremity, left; Prior surgery; Surgery date: 6+ months; Surgery type: Old port on left, new port on RT; Additional info: Cancer, port, swelling TECHNIQUE: Imaging protocol: Real-time duplex ultrasound of the left extremity with 2-D childers scale, color Doppler flow and spectral waveform analysis including responses to compression and other maneuvers (when performed) with image documentation. Limited exam focused on the left upper extremity veins. COMPARISON: CT chest wo con [id number] 06/23/2023 3:53 PM FINDINGS: Left deep veins: Unremarkable. Axillary and brachial veins are patent throughout without thrombus. Normal Doppler waveforms. Normal compressibility and/or augmentation response. Visualized internal jugular and subclavian veins are patent. Superficial veins: Unremarkable. Visualized cephalic and basilic veins are patent without thrombus. Soft tissues: Unremarkable. US/[place] [id number] IMPRESSION: No evidence of deep vein thrombosis.
--- NOTE | 2023-07-26 22:16 | ED_ITS ---
HPI - Extremity Problem General: Chief complaint: Extremity Problem,Nontraumatic Stated complaint: pacemaker, swollen chest and left arm Time Seen by Provider: 07/26/23 21:49 History of Present Illness: 73-year-old female reports she started having pain in the left shoulder region on , 4 days ago. The pain seemed to progress down her left upper extremity from the left shoulder. Over last day, she developed redness and swelling of the left forearm and around the wrist. Associated symptoms: Deny chest pain or fever(s) Review of Systems General: Reports: 10 or more systems reviewed and unremarkable except in HPI and below Const: Denies: fever(s), chills or body aches Eyes: Denies: change in vision ENMT: Denies: throat pain Card: Denies: chest pain, edema or syncope Resp: Denies: dyspnea or productive cough GI: Denies: abdominal pain, nausea, vomiting or diarrhea : Denies: flank pain, dysuria or urinary frequency Musc: Denies: neck pain or back pain Neuro: Denies: headache(s), numbness in extremities, weakness in extremities, lack of coordination or difficulty walking PFSH ED PFSH: Medical History Atypical chest pain Patient had a cardiac catheterization in 2009 and was found to have no significant coronary disease. Atypical chest pain Benign essential hypertension CAD (coronary artery disease) Cor pulmonale CVA (cerebral vascular accident) Dyslipidemia (high LDL; low HDL) History of COPD Hx of carotid stenosis Nicotine dependence, cigarettes, with unspecified nicotine-induced disorders SOB (shortness of breath) Thyroid cancer Surgical History H/O thyroidectomy History of ankle surgery History of back surgery History of bilateral carpal tunnel release History of bronchoscopy History of hip surgery History of lumpectomy History of rectal surgery Hx of hysterectomy Port-A-Cath in place S/P hardware removal Spine Family History Brother Leukemia Diabetes Lung disease Mother Anesthesia complication CAD (coronary artery disease) Father Bleeding disorder Clotting disorder CAD (coronary artery disease) Cancer Stroke Sister CAD (coronary artery disease) Chronic kidney disease (CKD) Lung disease Family/Other Diabetes Stroke Grandfather Suicide Denies family history of Dementia Social History Smoking and tobacco status: current every day smoker cigarettes Packs smoked per day: 0.5 Years cigarettes smoked: 55 [ Other cigarette details: Hx of 2 PPD x 50 Years, started at age 12] Quit status (tobacco): considering quitting Second hand smoke exposure: Yes Smoking risk assessment/counseling performed?: Yes Alcohol intake: never Desire information about alcohol rehabilitation?: No Counseling given: No Substance/Drug Use: never Desire information about substance/drug rehabilitation?: No Counseling given: No Adopted: No Lives independently: Yes Household members: none Housing: Apartment Marital status: / Current occupational status: disabled Do you think of yourself as: Straight/Heterosexual Current gender identity: Female Physical Exam Const: COMMON NORMALS: no limitations and alert EXAM LIMITATIONS: no altered mental status OTHER: Malnourished appearance HENMT: COMMON NORMALS: normocephalic, atraumatic and external ears normal HEAD & SCALP: normocephalic and atraumatic EXTERNAL EAR: Yes external ears normal MOUTH: no muffled voice Eye: COMMON NORMALS: EOMs intact bilaterally, conjunctivae normal and no scleral icterus CONJUNCTIVA: Yes conjunctivae normal Neck/C-Spine: OTHER: JVD is present. Some veins are dilated and prominent on both sides of the neck. No adenopathy appreciated in the neck. Cardio: COMMON NORMALS: regular rate and regular rhythm RATE: regular rate RHYTHM: regular rhythm GI: COMMON NORMALS: Soft to palpation and non-tender PALPATION: Yes Soft to palpation and No Guarding due to palpation present (GI) Extremity: NARRATIVE EXTREMITY EXAM: Left upper extremity is diffusely tender. There is edema in the left forearm around the wrist and in the hand and fingers. There is erythema around the dorsum of the hand, on the volar aspect of the wrist and forearm. These areas are also warm. There is some pain with range of motion of the left wrist and elbow but even more pain with range of motion of the left shoulder. The left upper extremity radial pulses 2+. Neuro: COMMON NORMALS: moves all extremities, no focal motor deficits and no sensory deficits noted SENSORIUM/ORIENTATION: Yes alert SPEECH: speech normal Psych: COMMON NORMALS: mental status grossly normal, Normal thought process present, cooperative, normal affect and speech normal SPEECH: Yes normal speech THOUGHT PROCESS: Normal thought process present Skin: OTHER: Erythema and swelling around the left hand wrist and forearm Procedures Joint Aspiration/Injection Joint Asp./Inject. 1: Side of body: left Joint Aspirated: shoulder Ultrasound Guidance: No Skin Prep: Chlorhexidine Local Anesthetic: lidocaine 1% Amount of anesthesia used (mL): 5 Needle Size Used: 18G Total fluid obtained (mL): 0 Patient Tolerated Procedure: well Complications: none Additional Comments: Needle passed into the shoulder joint using the posterior approach and landmark. No fluid obtained. Course Vital Signs: Vital signs: Vital Signs Temperature 98.8 F 07/26/23 17:11 Pulse Rate 96 07/26/23 23:42 Respiratory Rate 16 07/26/23 23:42 Blood Pressure 119/57 07/26/23 23:42 Pulse Oximetry 95 07/26/23 23:42 Oxygen Delivery Me thod Nasal Cannula 07/26/23 23:42 Oxygen Flow Rate 3 07/26/23 23:42 MDM - Extremity (Nontraumatic) Medical Decision Making Differential diagnosis includes DVT, cellulitis, septic arthritis, lymphangitis, crystal arthropathy, cancer spread to bone, other. Chest x-ray was obtained. The left humerus appears to be slightly subluxed but not dislocated. There is a question of some increased radiodensity at the inferior aspect of the glenoid area. The pacemaker wires appear to be in appropriate position. Ultrasound of the left upper extremity did not show any DVT and the tech did not report seeing any adenopathy. White blood cell count is elevated at 13.6. Blood cultures were sent patient was started on vancomycin and Rocephin. I have placed a page to orthopedic surgery to discuss possible attempted aspiration of the left shoulder. I have also added an ESR and CRP. I have attempted to speak with Dr Rizo, senior environmental technician for orthopedic surgery but after multiple phone calls, have been unable to get in touch with him. I did discuss case with Marin, midlevel working with him. I attempted aspiration of synovial fluid from left shoulder but despite easy access to joint, there was no fluid. [facility] Lab Data 07/26/23 21:17 07/26/23 21:17 Radiology Impressions Chest X-Ray 07/26/23 18:23 IMPRESSION: 1. Stable right Mediport catheter. 2. Stable COPD . Venous Duplex 07/26/23 21:50 IMPRESSION: No evidence of deep vein thrombosis. Laboratory Results WBC 13.58 10^3/uL (3.29-11.43) H 07/26/23 21:17 RBC 3.68 10^6/uL (3.85-5.65) L 07/26/23 21:17 Hgb 10.20 g/dL (11.27-16.99) L 07/26/23 21:17 Hct 34.1 % (36-47) L 07/26/23 21:17 MCV 92.7 fl (85-98) 07/26/23 21:17 MCH 27.7 pg (27-33) 07/26/23 21:17 MCHC 29.9 g/dL (30-55) L 07/26/23 21:17 RDW 16.9 % (12.1-15.1) H 07/26/23 21:17 Plt Count 180 10^3/cmm (157-399) 07/26/23 21:17 MPV 9.6 fL (7.4-10.4) 07/26/23 21:17 Neut % (Auto) 76.2 % 07/26/23 21:17 Lymph % (Auto) 8.9 % 07/26/23 21:17 [place] % (Auto) 14.1 % 07/26/23 21:17 Eos % (Auto) 0.1 % 07/26/23 21:17 Baso % (Auto) 0.2 % 07/26/23 21:17 Neut # (Auto) 10.34 10^3/uL (1.8-7.7) H 07/26/23 21:17 Lymph # (Auto) 1.2 10^3/uL (0.8-4.8) 07/26/23 21:17 [place] # (Auto) 1.9 10^3/uL (0.2-0.9) H 07/26/23 21:17 Eos # (Auto) 0.0 10^3/uL (0.0-0.8) 07/26/23 21:17 Baso # (Auto) 0.0 10^3/uL (0.0-0.1) 07/26/23 21:17 Nucleated RBC % (auto) 0 % 07/26/23 21:17 Nucleated RBCs # 0.0 /100WBC 07/26/23 21:17 ESR 47 mm/hr (0-15) H 07/26/23 21:17 Sodium 135 mmol/L (136-145) L 07/26/23 21:17 Potassium 5.2 mmol/L (3.5-5.1) H 07/26/23 21:17 Chloride 96 mmol/L (98-107) L 07/26/23 21:17 Carbon Dioxide 32 mmol/L (22-29) H 07/26/23 21:17 Anion Gap 12.2 (5-19) 07/26/23 21:17 BUN 10 mg/dL (8-23) 07/26/23 21:17 Creatinine 0.8 mg/dL (0.5-0.9) 07/26/23 21:17 GFR Calculation Not Reportable 07/26/23 21:17 Glucose 93 mg/dL (65-115) 07/26/23 21:17 Calculated Osmolality 279 mOsm/kg (285-295) L 07/26/23 21:17 Calcium 9.2 mg/dL (8.5-10.5) 07/26/23 21:17 Total Bilirubin 0.8 mg/dL (0.15-1.2) 07/26/23 21:17 AST 28 U/L (0-32) 07/26/23 21:17 ALT 11 U/L (0-33) 07/26/23 21:17 Alkaline Phosphatase 115 U/L (35-105) H 07/26/23 21:17 C-Reactive Protein 150.7 mg/L (0.0-4.9) H 07/26/23 21:17 Total Protein 7.7 g/dL (6.6-8.7) 07/26/23 21:17 Albumin 3.8 g/dL (3.5-5.2) 07/26/23 21:17 Globulin 3.9 g/dL (1.3-4.6) 07/26/23 21:17 Discharge Plan Discharge Condition: Stable Prescriptions: No Action magnesium 30 mg tablet 30 mg PO DAILY Qty: 90 6RF (DME) hospital bed See Rx Instructions .Route .MEDSUPPLY Qty: 1 0RF Rx Instructions: As directed budesonide 0.5 mg/2 mL suspension for nebulization 0.5 mg inhalation BID Qty: 120 11RF Daliresp 500 mcg tablet 500 mcg PO DAILY Qty: 90 3RF levothyroxine 75 mcg capsule 75 mcg PO DAILY Qty: 30 3RF Rx Instructions: WEDNESDAY THROUGH WEDNESDAY ONLY montelukast 4 mg tablet,chewable 8 mg PO DAILY Qty: 60 5RF baclofen 10 mg tablet 10 mg PO Q8H PRN (Reason: muscle spasm) Qty: 90 2RF (DME) oxygen See Rx Instructions .Route .MEDSUPPLY Qty: 1 0RF Rx Instructions: HOME FILL SYSTEM- CONTINOUS FLOW calcitriol [Rocaltrol] 0.5 mcg capsule 0.5 mcg PO DAILY Qty: 90 3RF atorvastatin 40 mg tablet 40 mg PO DAILY Qty: 90 3RF formoterol fumarate 20 mcg/2 mL solution for nebulization 2 ml inhalation BID Qty: 120 11RF ipratropium-albuterol 0.5 mg-3 mg(2.5 mg base)/3 mL solution for nebulization 3 ml inhalation Q6H PRN (Reason: wheezing) Qty: 90 3RF nitroglycerin 0.4 mg tablet, sublingual See Rx Instructions .ROUTE .COMPLEX Qty: 50 3RF Dose Instruction: DISSOLVE 1 TABLET UNDER THE TONGUE EVERY 5 MINUTES NEEDED FOR CHEST PAIN. DO NOT EXCEED A TOTAL OF 3 DOSES IN 15 MINUTES Rx Instructions: DISSOLVE 1 TABLET UNDER THE TONGUE EVERY 5 MINUTES NEEDED FOR CHEST PAIN. DO NOT EXCEED A TOTAL OF 3 DOSES IN 15 MINUTES albuterol sulfate [Ventolin HFA] 90 mcg/actuation HFA aerosol inhaler See Rx Instructions .ROUTE .COMPLEX Qty: 18 3RF Dose Instruction: inhale TWO puffs into lungs EVERY 4 HOURS NEEDED FOR SHORTNESS OF BREATH OR wheezing Rx Instructions: inhale TWO puffs into lungs EVERY 4 HOURS NEEDED FOR SHORTNESS OF BREATH OR wheezing bumetanide 0.5 mg tablet 0.5 mg PO DAILY Qty: 90 3RF potassium chloride 20 mEq/15 mL liquid 20 meq PO DAILY buprenorphine-naloxone [Suboxone] 8-2 mg Film 1 film SUBLINGUAL Q8H Hold Instructions: Resume on 05/28/20. May reinstitute in the next 7 days, b ut do not use with [place] and tramadol diphenhydramine HCl [Benadryl] 25 mg Capsule 25 mg PO BID MDD SEE PHARAMCY COMMENT PRN (Reason: Allergy Symptoms) lidocaine 5 % adhesive patch,medicated 1 patch transdermal DAILY famotidine 20 mg Tablet 20 mg PO BID Qty: 60 0RF metoprolol tartrate 25 mg Tablet 12.5 mg PO BID@0900,2100 Qty: 30 0RF Referrals: Fei Laura DO [Primary Care Provider] - Coding Level of Care Code ED Environmental Engineering Aide for Judyg Cory
[2023-07-26] MEDS: diphenhydrAMINE 50 mg/mL SDV 1mL 25 MG IVP (22:38)
[2023-07-26] MEDS: cefTRIAXone 1,000 MG in sodium chloride 0.9% (plus) 50 ML 100 MG IV (22:49)
[2023-07-26 22:58] LABS: Erythrocyte Sedimentation Rate 47 mm/hr (0-15)
[2023-07-26 23:09] LABS: C Reactive Protein 150.7 mg/L (0.0-4.9)
[2023-07-26] MEDS: ondansetron 2 mg/ML SDV 2 mL 4 MG IVP (23:13)
[2023-07-26] MEDS: HYDROmorphone 1 mg/mL INJ 1 mL 0.5 MG IVP ×2 (23:13→23:37)
[2023-07-26] MEDS: lidocaine 1% INJ 10 mL (per mL) 20 ML INJECTION (23:21)
[2023-07-26] MEDS: vancomycin 750 MG in sodium chloride 0.9% 250 ML 250 MG IV (23:37)
[2023-07-26 23:42] VITALS: BP 119/57; PULSE 96; RESP 16; O2SAT 95
--- NOTE | 2023-07-26 23:56 | PM.HP ---
Providers/Chief Complaint Admitting Physician: Chris Galvan DO Primary Care Provider: Fei Laura DO Chief Complaint: pacemaker, swollen chest and left arm History of Present Illness Sakina Lombardi is a 73 year old female with right lower lobe lung cancer status post XRT and currently stable. She had a pacemaker on 05/26/2023. 1 month later she started to have left ankle and foot swelling. Work-up with police dispatcher was negative. She wears a ankle sleeve to prevent swelling. Currently for 2 weeks she states that her left shoulder started aching and swelling. The swelling and pain has progressed into her left wrist and fingers. This morning when she woke up her fingers were now swollen significantly more than yesterday. She is in pain with any movement of that left arm. She does report multiple traumas including injury to the left arm in the past. In the emergency room her CRP is elevated at 150 and ESR at 47. Emergency department physician attempted left shoulder joint aspiration without success. Review of Systems Const: Denies: fever(s) or chills Eyes: Denies: change in vision ENMT: Denies: throat pain or nasal congestion Card: Denies: chest pain or palpitations Resp: Reports: dyspnea (no worse than normal. 3 L oxygen at home); Denies: productive cough GI: Denies: abdominal pain, nausea, vomiting or change in stool character : Denies: dysuria Musc: Denies: back pain or extremity pain Skin/Breast: Denies: rash or lesions Neuro: Denies: headache(s) or dizziness Psych: Denies: anxiety or depression Edgar/Lymph: Denies: easy bruising or easy bleeding Medications/Allergies Home Medications Medication Instructions Recorded Confirmed Last Taken Type buprenorphine 8 mg-naloxone 2 mg 1 film sublingual Q8H 12/04/19 07/17/23 08/06/21 History sublingual film (Suboxone) oxygen #1 ea 04/08/21 07/17/23 04/21/21 Rx diphenhydramine HCl 25 mg capsule 25 mg PO BID PRN Allergy Symptoms 04/18/21 07/17/23 08/06/21 History (Benadryl) calcitriol 0.5 mcg capsule 0.5 mcg PO DAILY #90 caps 05/25/22 07/17/23 Unknown Rx (Rocaltrol) atorvastatin 40 mg tablet 40 mg PO DAILY #90 tabs 02/16/23 07/17/23 Unknown Rx budesonide 0.5 mg/2 mL suspension 0.5 mg (2 mL) inhalation BID #120 03/02/23 07/17/23 Unknown Rx for nebulization mL formoterol fumarate 20 mcg/2 mL 2 ml inhalation BID #120 mL 03/02/23 07/17/23 Unknown Rx solution for nebulization ipratropium 0.5 mg-albuterol 3 mg 3 ml inhalation Q6H PRN wheezing 03/02/23 07/17/23 Unknown Rx (2.5 mg base)/3 mL nebulization #90 mL soln magnesium 30 mg tablet 30 mg PO DAILY #90 tabs 04/01/23 07/17/23 Unknown Rx nitroglycerin 0.4 mg sublingual See Rx Instructions .Route 04/12/23 07/17/23 Unknown Rx tablet .COMPLEX #50 tabs levothyroxine 75 mcg capsule 75 mcg PO DAILY #30 caps 04/15/23 07/17/23 Unknown Rx roflumilast 500 mcg tablet 500 mcg PO DAILY #90 tabs 04/15/23 07/17/23 Unknown Rx (Daliresp) albuterol sulfate 90 mcg/actuation See Rx Instructions .Route 04/27/23 07/17/23 Unknown Rx aerosol inhaler (Ventolin HFA) .COMPLEX #18 grams lidocaine 5 % topical patch 1 patch transdermal DAILY 05/21/23 07/17/23 Unknown History famotidine 20 mg tablet 20 mg PO BID #60 tabs 05/28/23 07/17/23 Unknown Rx metoprolol tartrate 25 mg tablet 12.5 mg PO BID@0900,2100 #30 tabs 05/28/23 07/17/23 Unknown Rx bumetanide 0.5 mg tablet 0.5 mg PO DAILY #90 tabs 06/09/23 07/17/23 Unknown Rx potassium chloride 20 mEq/15 mL 20 meq PO DAILY 06/09/23 07/17/23 Unknown History oral liquid hospital bed #1 ea 06/10/23 07/17/23 Unknown Rx baclofen 10 mg tablet 10 mg PO Q8H PRN muscle spasm #90 07/01/23 07/17/23 Unknown Rx tabs montelukast 4 mg chewable tablet 8 mg PO DAILY #60 tabs 07/01/23 07/17/23 Unknown Rx Allergies Allergy/AdvReac Type Severity Reaction Status Date / Time 2-octyl cyanoacrylate Allergy ALGY-Rash Verified 07/13/23 13:21 adhesive tape Allergy ALGY-Rash Verified 07/13/23 13:21 amitriptyline Allergy ALGY-Hives Verified 07/13/23 13:21 amoxicillin Allergy ALGY-Hives Verified 07/13/23 13:21 cefaclor [From Ceclor] Allergy ALGY-Difficulty Verified 07/13/23 13:21 Breathing ciprofloxacin [From Cipro] Allergy ALGY-Difficulty Verified 07/13/23 13:21 Breathing gabapentin Allergy ALGY-Hives Verified 07/13/23 13:21 ibuprofen Allergy ALGY-Hives Verified 07/13/23 13:21 metronidazole [From Flagyl] Allergy ALGY-Hives Verified 07/13/23 13:21 Penicillins Allergy ALGY-Hives Verified 07/13/23 13:21 Sulfa (Sulfonamide Allergy ALGY-Hives Verified 07/13/23 13:21 Antibiotics) tetracycline Allergy ALGY-Hives Verified 07/13/23 13:21 trimethoprim Allergy ALGY-Hives Verified 07/13/23 13:21 PFSH Acute PFSH: Medical History Atypical chest pain Patient had a cardiac catheterization in 2009 and was found to have no significant coronary disease. Atypical chest pain Benign essential hypertension CAD (coronary artery disease) Cor pulmonale CVA (cerebral vascular accident) Dyslipidemia (high LDL; low HDL) History of COPD Hx of carotid stenosis Nicotine dependence, cigarettes, with unspecified nicotine-induced disorders SOB (shortness of breath) Thyroid cancer Surgical History H/O thyroidectomy History of ankle surgery History of back surgery History of bilateral carpal tunnel release History of bronchoscopy History of hip surgery History of lumpectomy History of rectal surgery Hx of hysterectomy Port-A-Cath in place S/P hardware removal Spine Family History Brother Leukemia Diabetes Lung disease Mother Anesthesia complication CAD (coronary artery disease) Father Bleeding disorder Clotting disorder CAD (coronary artery disease) Cancer Stroke Sister CAD (coronary artery disease) Chronic kidney disease (CKD) Lung disease Family/Other Diabetes Stroke Grandfather Suicide Denies family history of Dementia Social History Smoking and tobacco status: current every day smoker cigarettes Packs smoked per day: 0.5 Years cigarettes smoked: 55 [ Other cigarette details: Hx of 2 PPD x 50 Years, started at age 12] Quit status (tobacco): considering quitting Second hand smoke exposure: Yes Smoking risk assessment/counseling performed?: Yes Alcohol intake: never Desire information about alcohol rehabilitation?: No Counseling given: No Substance/Drug Use: never Desire information about substance/drug rehabilitation?: No Counseling given: No Adopted: No Lives independently: Yes Household members: none Housing: Apartment Marital status: / Current occupational status: disabled Do you think of yourself as: Straight/Heterosexual Current gender identity: Female Vitals/I&O/Wt Last Vital Signs Temp 98.8 F 07/26/23 17:11 Pulse 96 07/26/23 23:42 Resp 16 07/26/23 23:42 BP 119/57 07/26/23 23:42 Pulse Ox 95 07/26/23 23:42 O2 Del Method Nasal Cannula 07/26/23 23:42 O2 Flow Rate 3 07/26/23 23:42 07/26/23 07/26/23 07/27/23 14:59 22:59 06:59 Intake Total 50 / 50 Balance 50 / 50 Weight last 48 hrs Weight 38.555 kg Physical Exam Narrative: Patient is a 73-year-old cachectic frail appearing woman with muscle wasting. She is in moderate to severe distress with palpation of the left arm or any movement. Neuro: Alert and oriented to person place time and situation nonfocal to exam HEENT head is normocephalic atraumatic pupils are equal and round reactive to light and accommodation extraocular muscles are intact there is no scleral icterus mucous membranes are moist and erythematous. Neck is thin her clavicles and trapezius muscles are protuberant. No JVD carotid bruits or lymphadenopathy. Chest: Pacemaker is palpable in the left upper chest there is some pain to palpation in the superior medial aspect of the pocket. There is no fluctuance. There is some erythema associated with the area and then into the left shoulder. CV: Heart is regular normal S1-S2 without murmurs clicks gallops or rubs Lungs: Diminished throughout with prolonged expiration rhonchi heard in the left lung base. Abdomen flat soft nontender nondistended positive bowel sounds extremities for present no significant edema in the lower extremities. Left upper extremity: Warmth and edema over the left shoulder joint as well as the left wrist joint. There is edema in the forearm and fingers. Patient has significant pain on palpation and passive range of motion of both joints Psych: Mood and affect are appropriate. Skin: Warm and dry except for left arm which is warmer to touch. Multiple seborrheic keratosis on back Back: Moderate to severe thoracic kyphosis. Data 07/26/23 21:17 07/26/23 21:17 Micro: Microbiology 07/26/23 22:48 Blood Culture - Preliminary Blood SPECIMEN COLLECTED 07/26/23 22:38 Blood Culture - Preliminary Blood SPECIMEN COLLECTED US Vascular: Radiologist's impression: No DVT left upper extremity CXR: Radiologist's impression: No acute disease A&P Assessment and plan (1) Lung cancer: Right lower lobe Per patient present for 2 years. Patient had 30-36 radiation treatments no surgery no chemotherapy. Currently stable. Qualifiers: Laterality: unspecified laterality Lung location: unspecified part of lung Qualified Code(s): C34.90 - Malignant neoplasm of unspecified part of unspecified bronchus or lung (2) Left upper extremity swelling: Working diagnosis is left arm cellulitis. There is concern that the left shoulder and left wrist joints themselves are inflamed/infected. We will continue IV antibiotics. Consult was placed to orthopedic surgeon through the ER. I will obtain plain films of the shoulder and wrist. Differential diagnosis synovitis, bursitis, polyarticular inflammatory disease. (3) COPD (chronic obstructive pulmonary disease): Patient stable on 2-1/2 L currently. Patient uses 3 L at home. (4) Chronic respiratory failure with hypoxia: As above (5) Smoking addiction: Patient has over a [id number] history: And continues to smoke approximately one quarter of a pack per day (6) Chronic pain: (7) S/P placement of cardiac pacemaker: 2 months ago. Concern with either primary or secondary infection Attestations Medical Necessity Statement*: Patient requires admission for IV antibiotics and further work-up. Patient is at risk for sepsis cardiac lead infection and loss of mobility of left upper extremity Coding Level of Care Code Acute Code for Chg Fwd Diagnoses Lung cancer C34.90 Laterality: unspecified laterality Lung location: unspecified part of lung Left upper extremity swelling M79.89 COPD (chronic obstructive pulmonary disease) J44.9 Chronic respiratory failure with hypoxia J96.11 Smoking addiction F17.200 Chronic pain G89.29 S/P placement of cardiac pacemaker Z95.0
[2023-07-27] VITALS (18 sets, daily range): BP systolic 107–142; BP diastolic 57–72; PULSE 70–108; RESP 16–22; TEMP 36.3–37.1; O2SAT 92–100
--- NOTE | 2023-07-27 00:27 | XRR_ITS ---
PROCEDURE INFORMATION: Exam: XR Left Shoulder Exam date and time: 07/27/2023 12:34 AM Age: 73 years old Clinical indication: Left; Prior surgery; Surgery date: 6+ months; Surgery type: Pacer; Patient HX: C/O shoulder pain with swelling; Additional info: Jt pain and edema TECHNIQUE: Imaging protocol: Radiologic exam of the left shoulder. Views: 1 view. COMPARISON: [place] [id number] 07/26/2023 10:06 PM FINDINGS: Tubes, catheters and devices: Left -sided pacemaker. Bones/joints: Normal. Soft tissues: Normal. XR/XR shoulder LT 1V [id number] IMPRESSION: 1. Left -sided pacemaker. 2. No acute findings.
--- NOTE | 2023-07-27 00:27 | XRR_ITS ---
PROCEDURE INFORMATION: Exam: XR Left Wrist Exam date and time: 07/27/2023 12:35 AM Age: 73 years old Clinical indication: Patient HX: C/O left wrist pain with swelling; Additional info: Jt pain and edema TECHNIQUE: Imaging protocol: Radiologic exam of the left wrist. Views: 1 or 2 views. COMPARISON: [place] [id number] 07/26/2023 10:06 PM FINDINGS: Bones/joints: Chondrocalcinosis. Radiocarpal arthritis. Thumb interphalangeal arthritis. Soft tissues: Normal. XR/XR wrist LT 1V [id number] IMPRESSION: 1. Chondrocalcinosis. 2. Radiocarpal arthritis. 3. Thumb interphalangeal arthritis.
[2023-07-27] MEDS: baclofen 10 mg Tablet PO ×2 (01:26→10:34)
[2023-07-27] MEDS: morphine 4 mg/mL SDV 1 mL IVP ×3 (01:26→09:16)
[2023-07-27] MEDS: sodium chloride 0.9% 1,000 ML 75 ML IV (01:26)
[2023-07-27] MEDS: enoxaparin 40 mg/0.4 mL Syringe SUBCUT ×2 (01:26→23:46)
--- NOTE | 2023-07-27 01:31 | PC.PHAR ---
Pharmacokinetic dosing service Date: 07/27/23 Time: 131 Objective: Patient: Sakina Lombardi Floor: 261-1 Age: 73 yo Serum creatinine: 0.8 mg/dL Height: 60.0 Inches Weight (kg): 38.555 Diagnosis: Relevant medical/social history: Cultures and sensitivities: Other labs: Assessment: IBW (kg): 45.50 Dosing wt(kg): 38.555 Estimated Creatinine clearance (ml/min): 37.6 CRCL method: Cockcroft and Gault using ibw(default). Drug selected: Vancomycin Loading dose (mg): 0 Vd (liters): 34.7 (factor used: 0.9 L/kg) Josef (hr-1): 0.036 Half life (hrs): 19.25 Recommended dose: 750 mg Interval: 24 hrs Infusion time (hrs): 1.5 Predicted peak (mcg/mL): 36.4 Predicted trough (mcg/mL): 16.19 Total body weight is being used for vancomycin dosing. Renal function is stable [ ] /unstable [ ] Recommendations: Give Vancomycin 750 mg q 24 hrs with an expected Cpeak of 36.4 mcg/ml and an expected Ctrough of 16.19 mcg/ml Renal dosing of other antibiotics (review renal dosing of other medications and list guidelines here): Thank you for the consult, will continue to follow. Signature: Reba Mckay formerly [facility]
--- NOTE | 2023-07-27 01:31 | PC.NURSE ---
Patient does not have home medication list with her and states she left it at home. Unable to update/verify med rec at this time.
--- NOTE | 2023-07-27 02:00 | PC.NURSE ---
Addendum entered by Jewels Phillips RN 07/27/23 02:08: PRN Valium and patient's home theraworks ordered. Patient states someone will bring her home medication tomorrow. Original Note: Patient is asking for either Ativan or Valium for cramping in her legs. Patient states that Dr. Murillo gives her a low dose Ativan sometimes for it. Dr. Galvan notified.
[2023-07-27] MEDS: diazePAM 2 mg Tablet PO ×2 (02:23→19:50)
--- NOTE | 2023-07-27 02:24 | PC.NURSE ---
Patient refused Suboxone, stating that she used to take it, but doesn't anymore.
[2023-07-27] MEDS: cefepime 1,000 MG in sodium chloride 0.9% (plus) 50 ML 100 MG IV (05:14)
[2023-07-27 06:16] LABS: Magnesium 1.8 mg/dL (1.7-2.3)
--- NOTE | 2023-07-27 07:24 | PC.NURSE ---
Dr. Galvan notified of patient c/o pain 09/07 not relieved by Morphine. PRN Dilaudid ordered.
--- NOTE | 2023-07-27 08:25 | PC.PHAR ---
pt states she takes care of her own medications-ext med history shows suboxone 8/2mg film tid filled 07/19/23 30d/s pt states she picked up but hasnt taken it for months-pt states she is still taking calcitriol 0.5mcg daily ext shows last filled 05/17/23 30d/s-lipitor 40mg hs ext shows last filled 04/16/23 30d/s-pt states she is no longer taking pepcid 20mg bid ext shows last filled 06/28/23 30d/s-notes are made in the pharmacy comments
[2023-07-27] MEDS: calcitriol 0.25 mcg Capsule 0.5 MCG PO (08:34)
[2023-07-27] MEDS: famotidine 20 mg Tablet PO ×2 (08:36→17:13)
[2023-07-27] MEDS: roflumilast 500 mcg Tablet PO (08:36)
[2023-07-27] MEDS: docusate sodium 100 mg Capsule PO ×2 (08:36→17:13)
[2023-07-27] MEDS: levothyroxine 75 mcg Tablet PO (08:36)
[2023-07-27] MEDS: lidocaine 5% Patch 1 PATCH TRANSDERMA (08:37)
[2023-07-27] MEDS: budesonide 0.5 mg/2 mL Neb INHALATION ×2 (08:38→20:00)
[2023-07-27] MEDS: metoprolol tartrate 25 mg Tablet 12.5 MG PO ×2 (08:38→19:49)
[2023-07-27] MEDS: albuterol 2.5 mg/3 mL Neb INHALATION ×3 (08:38→20:00)
--- NOTE | 2023-07-27 09:02 | PM.CONSULT ---
Providers/Reason For Consult Consulting Physician/Specialty*: Ortho Spine Reason for Consult*: Left arm pain Attending Physician: Carter Cast MD Primary Care Provider: Fei Laura DO History of Present Illness History of Present Illness Sakina Lombardi is a 73 year old female who presented to the emergency room with increased left arm pain this been slowly getting worse over the last week. She denies any falls any specific injury to the left shoulder elbow or wrist. She had a pacemaker placed 05/27/[address] Solomon. She denies fevers or drainage from the incisional site. But she states the pain is progressively gotten worse over the pacemaker which pain radiates into the shoulder down the left arm. At this point any movement of the left arm causes her intense pain. She had an aspiration of the left shoulder in the emergency room without any fluid evident. She describes a redness that travels down the arm into the left wrist. Any movement of the left upper extremity causes her intense pain. She reports some neck pain. But any use of her left upper extremity causes intense pain. She is sitting in bed that she was evaluated in room 261 supporting her left arm. She denies any falls. She has pain at rest any movement of the arm makes it considerably worse. She ranks her pain as 8 out of 10 on the pain scale with movement. Review of Systems Const: Denies: fever(s) or chills Eyes: Denies: change in vision ENMT: Denies: throat pain or nasal congestion Card: Denies: chest pain or palpitations Resp: Reports: dyspnea (no worse than normal. 3 L oxygen at home); Denies: productive cough GI: Denies: abdominal pain, nausea, vomiting or change in stool character : Denies: dysuria Musc: Denies: back pain or extremity pain Skin/Breast: Denies: rash or lesions Neuro: Denies: headache(s) or dizziness Psych: Denies: anxiety or depression Edgar/Lymph: Denies: easy bruising or easy bleeding Medications/Allergies Home Medications Medication Instructions Recorded Confirmed Last Taken Type buprenorphine 8 mg-naloxone 2 mg 1 film sublingual Q8H 12/04/19 07/27/23 08/06/21 History sublingual film (Suboxone) oxygen #1 ea 04/08/21 07/27/23 04/21/21 Rx diphenhydramine HCl 25 mg capsule 50 mg PO QAM 04/18/21 07/27/23 08/06/21 History (Benadryl) calcitriol 0.5 mcg capsule 0.5 mcg PO DAILY #90 caps 05/25/22 07/27/23 Unknown Rx (Rocaltrol) ipratropium 0.5 mg-albuterol 3 mg 3 ml inhalation Q6H PRN wheezing 03/02/23 07/27/23 Unknown Rx (2.5 mg base)/3 mL nebulization #90 mL soln magnesium 30 mg tablet 30 mg PO DAILY #90 tabs 04/01/23 07/27/23 Unknown Rx roflumilast 500 mcg tablet 500 mcg PO DAILY #90 tabs 04/15/23 07/27/23 Unknown Rx (Daliresp) lidocaine 5 % topical patch 1 - 3 patch transdermal DAILY 05/21/23 07/27/23 Unknown History bumetanide 0.5 mg tablet 0.5 mg PO DAILY #90 tabs 06/09/23 07/27/23 Unknown Rx potassium chloride 20 mEq/15 mL 20 meq PO DAILY 06/09/23 07/27/23 Unknown History oral liquid hospital bed #1 ea 06/10/23 07/27/23 Unknown Rx baclofen 10 mg tablet 10 mg PO Q8H PRN muscle spasm #90 07/01/23 07/27/23 Unknown Rx tabs montelukast 4 mg chewable tablet 8 mg PO DAILY #60 tabs 07/01/23 07/27/23 Unknown Rx Theraworx See Rx Instructions .Route .COMPLEX 07/27/23 07/27/23 Unknown History albuterol sulfate 90 mcg/actuation 2 puff inhalation Q4H PRN 07/27/23 07/27/23 Unknown History aerosol inhaler (Ventolin HFA) Shortness Of Breath atorvastatin 40 mg tablet 40 mg PO BEDTIME 07/27/23 07/27/23 Unknown History budesonide 0.5 mg/2 mL suspension 0.5 mg inhalation BID PRN unknown 07/27/23 07/27/23 Unknown History for nebulization levothyroxine 75 mcg tablet See Rx Instructions .Route .COMPLEX 07/27/23 07/27/23 Unknown History metoprolol tartrate 25 mg tablet 12.5 mg PO BID 07/27/23 07/27/23 Unknown History nitroglycerin 0.4 mg sublingual 0.4 mg sublingual Q5M PRN Chest 07/27/23 07/27/23 Unknown History tablet (Nitrostat) Pain Allergies Allergy/AdvReac Type Severity Reaction Status Date / Time 2-octyl cyanoacrylate Allergy ALGY-Rash Verified 07/27/23 01:30 adhesive tape Allergy ALGY-Rash Verified 07/27/23 01:30 amitriptyline Allergy ALGY-Hives Verified 07/27/23 01:30 amoxicillin Allergy ALGY-Hives Verified 07/27/23 01:30 cefaclor [From Ceclor] Allergy ALGY-Difficulty Verified 07/27/23 01:30 Breathing ciprofloxacin [From Cipro] Allergy ALGY-Difficulty Verified 07/27/23 01:30 Breathing gabapentin Allergy ALGY-Hives Verified 07/27/23 01:30 ibuprofen Allergy ALGY-Hives Verified 07/27/23 01:30 metronidazole [From Flagyl] Allergy ALGY-Hives Verified 07/27/23 01:30 Penicillins Allergy ALGY-Hives Verified 07/27/23 01:30 Sulfa (Sulfonamide Allergy ALGY-Hives Verified 07/27/23 01:30 Antibiotics) tetracycline Allergy ALGY-Hives Verified 07/27/23 01:30 trimethoprim Allergy ALGY-Hives Verified 07/27/23 01:30 Current Medications Generic Name Dose Route Start Last Admin Trade Name Freq PRN Reason Stop Dose Admin Albuterol Sulfate 2.5 mg 07/27/23 08:00 07/27/23 08:38 Albuterol 2.5 Mg/3 Ml Neb INHALATION 2.5 mg QID.RESPIRATORY ALEXA Administration Baclofen 10 mg 07/27/23 00:30 07/27/23 01:26 Baclofen 10 Mg Tablet PO 10 mg Q8H PRN Administration muscle spasm Budesonide 0.5 mg 07/27/23 08:00 07/27/23 08:38 Budesonide 0.5 Mg/2 Ml Neb INHALATION 0.5 mg BID.RESPIRATORY ALEXA Administration Buprenorphine/Naloxone 2 each 07/27/23 02:00 07/27/23 02:24 Buprenorphine-Naloxone 4-1 Mg Film SUBLINGUAL Not Given Q8H ALEXA Calcitriol 0.5 mcg 07/27/23 09:00 07/27/23 08:34 Calcitriol 0.25 Mcg Capsule PO 0.5 mcg DAILY ALEXA Administration Diazepam 2 mg 07/27/23 02:06 07/27/23 02:23 Diazepam 2 Mg Tablet PO 2 mg Q8H PRN Administration ANXIETY Docusate Sodium 100 mg 07/27/23 09:00 07/27/23 08:36 Docusate Sodium 100 Mg Capsule PO 100 mg BID ALEXA Administration Enoxaparin Sodium 40 mg 07/27/23 00:30 07/27/23 01:26 Enoxaparin 40 Mg/0.4 Ml Syringe SUBCUT 40 mg Q24H ALEXA Administration Famotidine 20 mg 07/27/23 09:00 07/27/23 08:36 Famotidine 20 Mg Tablet PO 20 mg BID ALEXA Administration Hydromorphone HCl 1 mg 07/27/23 06:57 07/27/23 07:31 Hydromorphone 4 Mg Tablet PO 1 mg Q4H PRN Administration SEVERE PAIN (PO 1ST) Sodium Chloride 1,000 mls @ 75 mls/hr 07/27/23 00:30 07/27/23 01:26 Sodium Chloride 0.9% IV 75 mls/hr .[id number] ALEXA Administration Levothyroxine Sodium 75 mcg 07/27/23 09:00 07/27/23 08:36 Levothyroxine 75 Mcg Tablet PO 75 mcg DAILY ALEXA Administration Lidocaine 1 patch 07/27/23 09:00 07/27/23 08:37 Lidocaine 5% Patch TRANSDERMA 1 patch DAILY ALEXA Administration Metoprolol Tartrate 12.5 mg 07/27/23 09:00 07/27/23 08:38 Metoprolol Tartrate 25 Mg Tablet PO 12.5 mg BID@0900,2100 ALEXA Administration Morphine Sulfate 4 mg 07/27/23 00:30 07/27/23 05:14 Morphine 4 Mg/Ml Sdv 1 Ml IVP 4 mg Q4H PRN Administration SEVERE PAIN Roflumilast 500 mcg 07/27/23 09:00 07/27/23 08:36 Roflumilast 500 Mcg Tablet PO 500 mcg DAILY ALEXA Administration PFSH Acute PFSH: Medical History Atypical chest pain Patient had a cardiac catheterization in 2009 and was found to have no significant coronary disease. Atypical chest pain Benign essential hypertension CAD (coronary artery disease) Cor pulmonale CVA (cerebral vascular accident) Dyslipidemia (high LDL; low HDL) History of COPD Hx of carotid stenosis Nicotine dependence, cigarettes, with unspecified nicotine-induced disorders SOB (shortness of breath) Thyroid cancer Surgical History H/O thyroidectomy History of ankle surgery History of back surgery History of bilateral carpal tunnel release History of bronchoscopy History of hip surgery History of lumpectomy History of rectal surgery Hx of hysterectomy Port-A-Cath in place S/P hardware removal Spine Family History Brother Leukemia Diabetes Lung disease Mother Anesthesia complication CAD (coronary artery disease) Father Bleeding disorder Clotting disorder CAD (coronary artery disease) Cancer Stroke Sister CAD (coronary artery disease) Chronic kidney disease (CKD) Lung disease Family/Other Diabetes Stroke Grandfather Suicide Denies family history of Dementia Social History Smoking and tobacco status: current every day smoker cigarettes Packs smoked per day: 0.5 Years cigarettes smoked: 55 [ Other cigarette details: Hx of 2 PPD x 50 Years, started at age 12] Quit status (tobacco): considering quitting Second hand smoke exposure: Yes Smoking risk assessment/counseling performed?: Yes Alcohol intake: never Desire information about alcohol rehabilitation?: No Counseling given: No Substance/Drug Use: never Desire information about substance/drug rehabilitation?: No Counseling given: No Adopted: No Lives independently: Yes Household members: none Housing: Apartment Marital status: / Current occupational status: disabled Do you think of yourself as: Straight/Heterosexual Current gender identity: Female Vitals/I&O/Wt Last Vital Signs Temp 98.6 F 07/27/23 05:00 Pulse 100 07/27/23 08:46 Resp 22 H 07/27/23 08:30 BP 118/57 07/27/23 05:00 Pulse Ox 100 07/27/23 08:30 O2 Del Method Nasal Cannula 07/27/23 03:28 O2 Flow Rate 3 07/27/23 08:30 07/26/23 07/27/23 07/27/23 22:59 06:59 14:59 Intake Total 830 / 830 360 / 360 Balance 830 / 830 360 / 360 Weight last 48 hrs Weight 85 lb Physical Exam Narrative: Patient is alert and oriented x3 has a very cachectic appearance normal mood and affect. Moderate acute distress. Diffuse redness down into the left forearm and wrist. Well-healed incision over the left side of her chest over the pacemaker site. She can move her head to the side rotate flex and extend with some discomfort. She has palpable pain through the base of the neck into the left scapular region. Most of her pain with palpation comes over the pacemaker and left shoulder. Any attempts to move the left shoulder left elbow or wrist cause intense pain. Her hands are warm with good cap refill she does have redness in the left wrist and forearm consistent with a cellulitis. Pulses are palpable. She wiggles her digits they are warm to the touch. Left arm is more tender and warm to the touch than the right. She has full range of motion of the right upper extremity. Evidence of port on the right. Moves both lower extremities without any problem. Negative logroll bilaterally normal sensation light touch down both lower extremities feet are warm good cap refill. Dorsalis pedis posterior tibial pulses are palpable. Calves are supple HENMT: COMMON NORMALS: normocephalic HEAD & SCALP: normocephalic Resp: COMMON NORMALS: normal respiratory effort Cardio: COMMON NORMALS: regular rate and regular rhythm RATE: regular rate RHYTHM: regular rhythm GI: COMMON NORMALS: Soft to palpation and non-tender PALPATION: Yes Soft to palpation : COMMON NORMALS: Yes no CVA tenderness BLADDER/KIDNEY EXAM: Yes no CVA tenderness Back/Pelvis: COMMON NORMALS: no CVA tenderness Psych: COMMON NORMALS: mental status grossly normal and cooperative Data 07/26/23 21:17 07/26/23 21:17 Micro: Microbiology 07/26/23 22:48 Blood Culture - Preliminary Blood SPECIMEN COLLECTED 07/26/23 22:38 Blood Culture - Preliminary Blood SPECIMEN COLLECTED Xray Ortho: Radiologist's impression: XR/XR wrist LT 1V [id number] IMPRESSION: 1. ? Chondrocalcinosis. 2. ? Radiocarpal arthritis. 3. ? Thumb interphalangeal arthritis. XR/XR shoulder LT 1V [id number] IMPRESSION: 1. ? Left -sided pacemaker. 2. ? No acute findings. A&P Assessment and plan (1) Status post cardiac pacemaker procedure: At this point there was no fluid aspirated from the left shoulder in the emergency room. Therefore CT-guided aspiration of the left shoulder would not be beneficial. Most of her pain seems to be originating from the pacemaker site. Would defer to Dr. Solomon and the medical team for continued management. Orthopedics would be available if needed or her symptoms change. Discussed this with Dr. Rizo at length he agrees above-stated plan. More than 50% of the time spent with the patient today involved coordination of care, counseling and discussion of conservative versus surgical treatment options. Total amount of time spent with the patient was 34 minutes. (2) Left shoulder pain: (3) Cellulitis of left upper extremity: Coding Level of Care Code Acute Code for Chg Fwd Diagnoses Status post cardiac pacemaker procedure Z95.0 Left shoulder pain M25.512 Cellulitis of left upper extremity L03.114 Time Spent (min) 34
--- NOTE | 2023-07-27 10:41 | P.CONIM_ITS ---
Providers/Reason For Consult Consulting Physician/Specialty*: Dr. Solomon/cardiothoracic surgery Reason for Consult*: Left upper extremity swelling Requesting Physician: Dr. Galvan Attending Physician: Carter Cast MD Primary Care Provider: Fei Laura DO History of Present Illness History of Present Illness Sakina Lombardi is a 73 year old female whom I placed a single-lead pacemaker on May 27, 2023 for severe bradycardia with beta-blockade in an attempt to control tachycardia. Postoperative she has Done well. She represents now with a swollen left upper extremity which extends down to her wrist hand and fingers. Duplex study has revealed no evidence for thrombus in her visible axillary, brachial, and cephalic veins. I was requested to assess her pacemaker incision line pocket for concerns of possible infection. She does have elevated white count and CRP. Chest x-ray reveals appropriate lead placement with a right- sided Mediport in position. She had a history of prior lung carcinoma and status post radiotherapy. Review of Systems Const: Reports: fatigue; Denies: fever(s) or chills Eyes: Denies: change in vision or blurry vision Card: Denies: chest pain or palpitations Resp: Reports: dyspnea (Chronic shortness of breath with advanced COPD on long-term oxygen. ) and other (Continued tobacco use) GI: Denies: abdominal pain, nausea, vomiting or hematemesis Musc: Reports: extremity pain (Left arm pain and swelling.) Neuro: Denies: headache(s) Psych: Denies: anxiety or depression Medications/Allergies Home Medications Medication Instructions Recorded Confirmed Last Taken Type buprenorphine 8 mg-naloxone 2 mg 1 film sublingual Q8H 12/04/19 07/27/23 08/06/21 History sublingual film (Suboxone) oxygen #1 ea 04/08/21 07/27/23 04/21/21 Rx diphenhydramine HCl 25 mg capsule 50 mg PO QAM 04/18/21 07/27/23 08/06/21 History (Benadryl) calcitriol 0.5 mcg capsule 0.5 mcg PO DAILY #90 caps 05/25/22 07/27/23 Unknown Rx (Rocaltrol) ipratropium 0.5 mg-albuterol 3 mg 3 ml inhalation Q6H PRN wheezing 03/02/23 07/27/23 Unknown Rx (2.5 mg base)/3 mL nebulization #90 mL soln magnesium 30 mg tablet 30 mg PO DAILY #90 tabs 04/01/23 07/27/23 Unknown Rx roflumilast 500 mcg tablet 500 mcg PO DAILY #90 tabs 04/15/23 07/27/23 Unknown Rx (Daliresp) lidocaine 5 % topical patch 1 - 3 patch transdermal DAILY 05/21/23 07/27/23 Unknown History bumetanide 0.5 mg tablet 0.5 mg PO DAILY #90 tabs 06/09/23 07/27/23 Unknown Rx potassium chloride 20 mEq/15 mL 20 meq PO DAILY 06/09/23 07/27/23 Unknown History oral liquid hospital bed #1 ea 06/10/23 07/27/23 Unknown Rx baclofen 10 mg tablet 10 mg PO Q8H PRN muscle spasm #90 07/01/23 07/27/23 Unknown Rx tabs montelukast 4 mg chewable tablet 8 mg PO DAILY #60 tabs 07/01/23 07/27/23 Unknown Rx Theraworx See Rx Instructions .Route .COMPLEX 07/27/23 07/27/23 Unknown History albuterol sulfate 90 mcg/actuation 2 puff inhalation Q4H PRN 07/27/23 07/27/23 Unknown History aerosol inhaler (Ventolin HFA) Shortness Of Breath atorvastatin 40 mg tablet 40 mg PO BEDTIME 07/27/23 07/27/23 Unknown History budesonide 0.5 mg/2 mL suspension 0.5 mg inhalation BID PRN unknown 07/27/23 07/27/23 Unknown History for nebulization levothyroxine 75 mcg tablet See Rx Instructions .Route .COMPLEX 07/27/23 07/27/23 Unknown History metoprolol tartrate 25 mg tablet 12.5 mg PO BID 07/27/23 07/27/23 Unknown History nitroglycerin 0.4 mg sublingual 0.4 mg sublingual Q5M PRN Chest 07/27/23 07/27/23 Unknown History tablet (Nitrostat) Pain Allergies Allergy/AdvReac Type Severity Reaction Status Date / Time 2-octyl cyanoacrylate Allergy ALGY-Rash Verified 07/27/23 01:30 adhesive tape Allergy ALGY-Rash Verified 07/27/23 01:30 amitriptyline Allergy ALGY-Hives Verified 07/27/23 01:30 amoxicillin Allergy ALGY-Hives Verified 07/27/23 01:30 cefaclor [From Ceclor] Allergy ALGY-Difficulty Verified 07/27/23 01:30 Breathing ciprofloxacin [From Cipro] Allergy ALGY-Difficulty Verified 07/27/23 01:30 Breathing gabapentin Allergy ALGY-Hives Verified 07/27/23 01:30 ibuprofen Allergy ALGY-Hives Verified 07/27/23 01:30 metronidazole [From Flagyl] Allergy ALGY-Hives Verified 07/27/23 01:30 Penicillins Allergy ALGY-Hives Verified 07/27/23 01:30 Sulfa (Sulfonamide Allergy ALGY-Hives Verified 07/27/23 01:30 Antibiotics) tetracycline Allergy ALGY-Hives Verified 07/27/23 01:30 trimethoprim Allergy ALGY-Hives Verified 07/27/23 01:30 Current Medications Generic Name Dose Route Start Last Admin Trade Name Freq PRN Reason Stop Dose Admin Albuterol Sulfate 2.5 mg 07/27/23 08:00 07/27/23 08:38 Albuterol 2.5 Mg/3 Ml Neb INHALATION 2.5 mg QID.RESPIRATORY ALEXA Administration Baclofen 10 mg 07/27/23 00:30 07/27/23 10:34 Baclofen 10 Mg Tablet PO 10 mg Q8H PRN Administration muscle spasm Budesonide 0.5 mg 07/27/23 08:00 07/27/23 08:38 Budesonide 0.5 Mg/2 Ml Neb INHALATION 0.5 mg BID.RESPIRATORY ALEXA Administration Buprenorphine/Naloxone 2 each 07/27/23 02:00 07/27/23 10:31 Buprenorphine-Naloxone 4-1 Mg Film SUBLINGUAL Not Given Q8H ALEXA Calcitriol 0.5 mcg 07/27/23 09:00 07/27/23 08:34 Calcitriol 0.25 Mcg Capsule PO 0.5 mcg DAILY ALEXA Administration Diazepam 2 mg 07/27/23 02:06 07/27/23 02:23 Diazepam 2 Mg Tablet PO 2 mg Q8H PRN Administration ANXIETY Docusate Sodium 100 mg 07/27/23 09:00 07/27/23 08:36 Docusate Sodium 100 Mg Capsule PO 100 mg BID ALEXA Administration Enoxaparin Sodium 40 mg 07/27/23 00:30 07/27/23 01:26 Enoxaparin 40 Mg/0.4 Ml Syringe SUBCUT 40 mg Q24H ALEXA Administration Famotidine 20 mg 07/27/23 09:00 07/27/23 08:36 Famotidine 20 Mg Tablet PO 20 mg BID ALEXA Administration Hydromorphone HCl 1 mg 07/27/23 06:57 07/27/23 07:31 Hydromorphone 4 Mg Tablet PO 1 mg Q4H PRN Administration SEVERE PAIN (PO 1ST) Sodium Chloride 1,000 mls @ 75 mls/hr 07/27/23 00:30 07/27/23 01:26 Sodium Chloride 0.9% IV 75 mls/hr .[id number] ALEXA Administration Levothyroxine Sodium 75 mcg 07/27/23 09:00 07/27/23 08:36 Levothyroxine 75 Mcg Tablet PO 75 mcg DAILY ALEXA Administration Lidocaine 1 patch 07/27/23 09:00 07/27/23 08:37 Lidocaine 5% Patch TRANSDERMA 1 patch DAILY ALEXA Administration Metoprolol Tartrate 12.5 mg 07/27/23 09:00 07/27/23 08:38 Metoprolol Tartrate 25 Mg Tablet PO 12.5 mg BID@0900,2100 ALEXA Administration Morphine Sulfate 4 mg 07/27/23 00:30 07/27/23 09:16 Morphine 4 Mg/Ml Sdv 1 Ml IVP 4 mg Q4H PRN Administration SEVERE PAIN Roflumilast 500 mcg 07/27/23 09:00 07/27/23 08:36 Roflumilast 500 Mcg Tablet PO 500 mcg DAILY ALEXA Administration PFSH Acute PFSH: Medical History Atypical chest pain Patient had a cardiac catheterization in 2009 and was found to have no significant coronary disease. Atypical chest pain Benign essential hypertension CAD (coronary artery disease) Cor pulmonale CVA (cerebral vascular accident) Dyslipidemia (high LDL; low HDL) History of COPD Hx of carotid stenosis Nicotine dependence, cigarettes, with unspecified nicotine-induced disorders SOB (shortness of breath) Thyroid cancer Surgical History H/O thyroidectomy History of ankle surgery History of back surgery History of bilateral carpal tunnel release History of bronchoscopy History of hip surgery History of lumpectomy History of rectal surgery Hx of hysterectomy Port-A-Cath in place S/P hardware removal Spine Family History Brother Leukemia Diabetes Lung disease Mother Anesthesia complication CAD (coronary artery disease) Father Bleeding disorder Clotting disorder CAD (coronary artery disease) Cancer Stroke Sister CAD (coronary artery disease) Chronic kidney disease (CKD) Lung disease Family/Other Diabetes Stroke Grandfather Suicide Denies family history of Dementia Social History Smoking and tobacco status: current every day smoker cigarettes Packs smoked per day: 0.5 Years cigarettes smoked: 55 [ Other cigarette details: Hx of 2 PPD x 50 Years, started at age 12] Quit status (tobacco): considering quitting Second hand smoke exposure: Yes Smoking risk assessment/counseling performed?: Yes Alcohol intake: never Desire information about alcohol rehabilitation?: No Counseling given: No Substance/Drug Use: never Desire information about substance/drug rehabilitation?: No Counseling given: No Adopted: No Lives independently: Yes Household members: none Housing: Apartment Marital status: / Current occupational status: disabled Do you think of yourself as: Straight/Heterosexual Current gender identity: Female Vitals/I&O/Wt Last Vital Signs Temp 97.7 F 07/27/23 08:00 Pulse 100 07/27/23 08:46 Resp 16 07/27/23 09:16 BP 134/72 07/27/23 08:00 Pulse Ox 100 07/27/23 08:30 O2 Del Method Nasal Cannula 07/27/23 08:00 O2 Flow Rate 3 07/27/23 08:30 07/26/23 07/27/23 07/27/23 22:59 06:59 14:59 Intake Total 830 / 830 360 / 360 Balance 830 / 830 360 / 360 Weight last 48 hrs Weight 85 lb Physical Exam Const: COMMON NORMALS: no acute distress, patient oriented x3 and alert; negative for average body habitus and negative for healthy appearing OTHER: Thin and cachectic female with moderate and chronic standing dyspnea. Advanced COPD. HENMT: COMMON NORMALS: normocephalic, atraumatic, hearing grossly normal bilaterally, external ears normal and Normal external nose present HEAD & SCALP: normocephalic and atraumatic NOSE: Normal external nose present EXTERNAL EAR: Yes external ears normal Eye: COMMON NORMALS: EOMs intact bilaterally and no scleral icterus Neck/C-Spine: OTHER: Left IJ appears moderately distended while sitting upright. Chest: OTHER: Pacemaker pocket is soft without overlying erythema or heat. Incision line is well-healed. There is no evidence for pacemaker pocket fluid collection. Resp: COMMON NORMALS: negative for normal respiratory effort and negative for No use of accessory muscles AUSCULTATION: abnormal I/E ratio Cardio: COMMON NORMALS: regular rate and S1 normal heart sound present RATE: regular rate HEART SOUNDS: S1 normal heart sound present GI: COMMON NORMALS: Normal to inspection, nondistended, normoactive bowel sounds present Back/Pelvis: THORACIC SPINE/UPPER BACK: Yes kyphosis present Extremity: NARRATIVE EXTREMITY EXAM: There is generalized swelling through the left upper extremity from the arm down through the hand. Neuro: COMMON NORMALS: patient oriented x3, moves all extremities, no focal motor deficits and no sensory deficits noted SENSORIUM/ORIENTATION: Yes alert Data 07/26/23 21:17 07/26/23 21:17 Micro: Microbiology 07/26/23 22:48 Blood Culture - Preliminary Blood SPECIMEN COLLECTED 07/26/23 22:38 Blood Culture - Preliminary Blood SPECIMEN COLLECTED A&P Assessment and plan (1) Cellulitis of left upper extremity: Etiology of left upper extremity swelling is unclear. Pacemaker pocket and incision appear intact, clean, without evidence for fluid collection. While this is certainly a differential, I would be surprised without local abnormalit ies at the pacemaker insertion site that there is active infection at this point. Given her prior history for radiotherapy for lung carcinoma as well as physical findings of some distention of the left IJ, I would recommend a CT scan of the chest with contrast to confirm there is no evidence for venous obstructive phenomenon more proximally. Unfortunately, unable to place IV and her current Mediport is not approved for pressurized injection. Therefore, will proceed with noncontrasted CT scan. Consult Attestations Medical Necessity Statement: Left upper extremity swelling with potential for cellulitis versus pacemaker involvement versus more proximal venous obstruction Coding Level of Care Code Acute Code for [facility] Diagnoses Cellulitis of left upper extremity L03.114
--- NOTE | 2023-07-27 11:14 | CT_ITS ---
WS: [id number] CT chest wo con [id number] HISTORY: Respiratory symptoms and increased severe pain TECHNIQUE: Axial imaging performed through the thorax. Coronal and sagittal reformats are submitted. All CT scans at [facility] use at least one of these dose optimization techniques: automated exposure control; mA and/or kV adjustment per patient size (includes targeted exams where dose is mat ched to clinical indication); or iterative reconstruction. CONTRAST: None DLP: 266.43 mGy.cm COMPARISON: 12/04/2022 and 06/23/2023 Lungs and central airway: Severe chronic emphysema. No change in the calcification in the adjacent lo bulated nodule in the RIGHT lower lobe. The soft tissue lobulation is in part due to the vasculature. Peripheral nodularity in the RIGHT lower lobe has actually improved since 12/04/2022. No dense areas o f consolidation or pneumonia. Pleura: Normal. No pleural effusion. Heart and pericardium: Normal size heart with no pericardial effusion. Mediastinum and tia: No adenopathy on this unenhanced exam. Vessels: Severe atherosclerosis aorta extending into the great vessels. Pulmonary artery is enlarged. Chest wall and lower neck: LEFT subclavian single-lead defibrillator. Upper abdomen: Prior cholecystectomy. Limited evaluation without IV and oral contrast. Suprarenal aor tic calcifications. Osseous structures: Marked increase in thoracic kyphosis. Bones are osteopenic. Dorsal column stimula tor electrode in the mid thoracic region. IMPRESSION: 1. Stable appearance of the chest CT since 06/23/2023. Treated neoplasm RIGHT lower lobe with calcific ation and adjacent soft tissue nodularity stable since 06/23/2023. 2. Severe chronic emphysema. 3. Extensive atherosclerosis aorta.
--- NOTE | 2023-07-27 11:19 | PM.PN ---
Subjective Subjective: Patient reports severe pain and swelling in left upper extremity. States she is unable to move her arm due to the severity of the pain. Denies any pain in her chest. Reports chills. Denies nausea or vomiting. She reports her right upper extremity seems to be swelling as well. Medications: Reviewed: Yes Vitals/I&O/Wt Last Vital Signs Temp 97.7 F 07/27/23 08:00 Pulse 100 07/27/23 08:46 Resp 16 07/27/23 09:16 BP 134/72 07/27/23 08:00 Pulse Ox 100 07/27/23 08:30 O2 Del Method Nasal Cannula 07/27/23 08:00 O2 Flow Rate 3 07/27/23 08:30 07/26/23 07/27/23 07/27/23 22:59 06:59 14:59 Intake Total 830 / 830 360 / 360 Balance 830 / 830 360 / 360 Weight last 48 hrs Weight 38.555 kg Physical Exam Narrative: General: Patient is in moderate respiratory distress. Frail and cachetic appearing. Head: Normocephalic. Atraumatic. EOM intact. Neck: No JVD. Cardiovascular: No gallops. No murmurs. Pacemaker palpable without overlying erythema or fluctuance. Lungs: Tachypnea with moderate respiratory distress. Diffuse wheezing. No crackles. Skin: No jaundice. Abdomen: Normal bowel sounds, abdomen soft and nontender. Extremities: No cyanosis or clubbing. Musculoskeletal: Marked swelling of left upper extremity. Extremity is diffusely tender to palpation. Limited range of motion 2/2 pain. Neurological: No myoclonus. Data 07/26/23 21:17 07/26/23 21:17 Micro: Microbiology 07/26/23 22:48 Blood Culture - Preliminary Blood SPECIMEN COLLECTED 07/26/23 22:38 Blood Culture - Preliminary Blood SPECIMEN COLLECTED A&P Assessment and plan (1) Left upper extremity swelling: Etiology unclear, broad differential Status post antibiotics overnight, continue for now given leukocytosis and elevated inflammatory markers Doppler US negative for DVT Orthopedics evaluated, appreciate recommendations Consult Dr Solomon to evaluate for pacemaker involvement, although seems unlikely given exam (2) Lung cancer: Status post radiation to right back Qualifiers: Laterality: unspecified laterality Lung location: unspecified part of lung Qualified Code(s): C34.90 - Malignant neoplasm of unspecified part of unspecified bronchus or lung (3) Nicotine addiction: Would benefit from cigarette cessation Diffuse wheezing on exam (4) Chronic respiratory failure with hypoxia: Continue supplemental oxygen support Continue home inhaler/nebs (5) CAD (coronary artery disease): Continue home meds Qualifiers: Coronary Disease-Associated Artery/Lesion type: [place] artery [place] vs. transplanted heart: [place] heart Associated angina: with other forms of angina Qualified Code(s): I25.118 - Atherosclerotic heart disease of [place] coronary artery with other forms of angina pectoris (6) Cor pulmonale: Plan DVT ppx: Code: Full Attestations Medical Necessity Statement*: Patient with severe swelling of left upper extremity requiring ongoing hospitalization for further work up, serial exams, further imaging, speciality consult, and supportive care. Coding Level of Care Code Acute Code for [facility] Diagnoses Left upper extremity swelling M79.89 Lung cancer C34.90 Laterality: unspecified laterality Lung location: unspecified part of lung Nicotine addiction F17.200 Chronic respiratory failure with hypoxia J96.11 CAD (coronary artery disease) I25.118 Coronary Disease-Associated Artery/Lesion type: [place] artery [place] vs. transplanted heart: [place] heart Associated angina: with other forms of angina Cor pulmonale I27.81
[2023-07-27] MEDS: buprenorphine-naloxone 4-1 mg Film 2 EACH SUBLINGUAL (17:13)
[2023-07-27] MEDS: vancomycin 750 MG in sodium chloride 0.9% 250 ML 250 MG IV (22:12)
[2023-07-27] MEDS: diphenhydrAMINE 25 mg Capsule PO (23:46)
[2023-07-27] MEDS: ondansetron 2 mg/ML SDV 2 mL 4 MG IVP (23:46)
[2023-07-28] VITALS (16 sets, daily range): BP systolic 102–146; BP diastolic 50–77; PULSE 68–102; RESP 16–20; TEMP 36.3–37.1; O2SAT 91–100
[2023-07-28] MEDS: baclofen 10 mg Tablet PO ×2 (05:52→15:38)
[2023-07-28 05:56] LABS: Basophils % 0.5 %; Eosinophils # 0.1 10^3/uL (0.0-0.8); Eosinophils % 1.1 %; Hematocrit 25.4 % (36-47); Lymphocytes # 0.9 10^3/uL (0.8-4.8); Lymphocytes % 10.4 %; Mean Corpuscular HGB Conc 29.9 g/dL (30-55); Mean Corpuscular Hemoglobin 27.9 pg (27-33); Mean Corpuscular Volume 93.4 fl (85-98); Mean Platelet Volume 9.5 fL (7.4-10.4); Monocytes # 0.9 10^3/uL (0.2-0.9); Monocytes % 10.6 %; Neutrophils # 6.53 10^3/uL (1.8-7.7); Nucleated Red Blood Cells % 0 %; Platelet Count 144 10^3/cmm (157-399); Red Blood Count 2.72 10^6/uL (3.85-5.65); Red Cell Distribution Width 16.7 % (12.1-15.1); White Blood Count 8.47 10^3/uL (3.29-11.43)
[2023-07-28 06:12] LABS: Blood Urea Nitrogen 11 mg/dL (8-23); Calcium 8.1 mg/dL (8.5-10.5); Carbon Dioxide 31 mmol/L (22-29); Chloride 101 mmol/L (98-107); Glucose 100 mg/dL (65-115); Osmolality Calculated 285 mOsm/kg (285-295); Sodium 138 mmol/L (136-145)
[2023-07-28] MEDS: roflumilast 500 mcg Tablet PO (08:41)
[2023-07-28] MEDS: famotidine 20 mg Tablet PO ×2 (08:41→17:11)
[2023-07-28] MEDS: lidocaine 5% Patch 1 PATCH TRANSDERMA (08:41)
[2023-07-28] MEDS: levothyroxine 75 mcg Tablet PO (08:41)
[2023-07-28] MEDS: calcitriol 0.25 mcg Capsule 0.5 MCG PO (08:41)
[2023-07-28] MEDS: docusate sodium 100 mg Capsule PO ×2 (08:41→17:11)
[2023-07-28] MEDS: metoprolol tartrate 25 mg Tablet 12.5 MG PO ×2 (09:08→20:32)
[2023-07-28] MEDS: diazePAM 2 mg Tablet PO (09:11)
--- NOTE | 2023-07-28 12:01 | P.PN_ITS ---
Subjective Subjective: Patient sitting up in the chair having afternoon meal. Reports pain in left arm continues. Diffuse redness in the left arm. She has difficult time moving the left shoulder. Vitals/I&O/Wt Last Vital Signs Temp 97.5 F L 07/28/23 11:39 Pulse 68 07/28/23 11:39 Resp 18 07/28/23 11:39 BP 102/50 07/28/23 11:39 Pulse Ox 97 07/28/23 11:39 O2 Del Method Nasal Cannula 07/28/23 11:39 O2 Flow Rate 2.5 07/27/23 20:00 07/27/23 07/28/23 07/28/23 22:59 06:59 14:59 Intake Total 1480 / 1840 250 / 2090 240 / 240 Balance 1480 / 1840 250 / 2090 240 / 240 Weight last 48 hrs Weight 85 lb Physical Exam Narrative: Has a lidocaine patch over the left shoulder photographer still to the touch diffusely down the left upper extremity at the shoulder elbow and hand. Diffuse redness. Moves her digits she describes a burning sensation to light touch in her left upper extremity. Radial pulses are palpable. Mild palpable pain in the cervical spine pain with lateral bending rotation flexion extension of the cervical spine. Full range of motion of the right upper extremity at the shou lder elbow and wrist hand is warm good cap refill radial pulses palpable mild palpable pain in the upper thoracic region over the left scapular region. HENMT: COMMON NORMALS: normocephalic HEAD & SCALP: normocephalic Resp: OTHER: Labored Cardio: COMMON NORMALS: regular rate and regular rhythm RATE: regular rate RHYTHM: regular rhythm GI: COMMON NORMALS: Soft to palpation and non-tender PALPATION: Yes Soft to palpation : COMMON NORMALS: Yes no CVA tenderness BLADDER/KIDNEY EXAM: Yes no CVA tenderness Back/Pelvis: COMMON NORMALS: no CVA tenderness Psych: COMMON NORMALS: mental status grossly normal and cooperative Data 07/28/23 05:31 07/28/23 05:31 Micro: Microbiology 07/26/23 22:48 Blood Culture - Preliminary Blood NEGATIVE TO DATE 07/26/23 22:38 Blood Culture - Preliminary Blood NEGATIVE TO DATE A&P Assessment and plan (1) Cellulitis of left upper extremity: Continue antibiotic treatment. We will obtain a portable x-ray of her left shoulder. Continue to follow as needed. (2) Left upper extremity swelling: Attestations Medical Necessity Statement*: Defer to medical team Coding Level of Care Code Acute Code for [facility] Diagnoses Cellulitis of left upper extremity L03.114 Left upper extremity swelling M79.89
--- NOTE | 2023-07-28 12:05 | XR_ITS ---
WS: [id number] Exam: XR shoulder LT min 2V* [id number] Date/Time of Exam: 07/28/2023 12:20 PM Reason For Exam: Pain No fracture or dislocation. Chondrocalcinosis seen along the humeral head. Degenerative change at the AC joint. Subacromial bone spurring. Cardiac pacer seen along the LEFT axilla. IMPRESSION1. No fracture or dislocation. 2. Chondrocalcinosis seen along the humeral head. AC joint DJD and subacromial bone spurring.
[2023-07-28] MEDS: albuterol 2.5 mg/3 mL Neb INHALATION ×2 (13:01→20:05)
[2023-07-28 13:08] LABS: Cyclic Citrullinated Peptide <16 UNITS
[2023-07-28] MEDS: morphine 4 mg/mL SDV 1 mL 6 MG IVP ×2 (15:39→20:48)
--- NOTE | 2023-07-28 17:23 | P.PN_ITS ---
Subjective Subjective: Sakina reports ongoing severe pain and swelling of her left upper extremity. She has concerns her other three extremities might be swelling too. Denies other new complaints. Up to bedside chair. Denies fevers, chills, or emesis. Medications: Reviewed: Yes Vitals/I&O/Wt Last Vital Signs Temp 97.5 F L 07/28/23 11:39 Pulse 89 07/28/23 13:12 Resp 18 07/28/23 17:11 BP 102/50 07/28/23 11:39 Pulse Ox 93 07/28/23 12:00 O2 Del Method Nasal Cannula 07/28/23 12:00 O2 Flow Rate 2 07/28/23 12:00 07/28/23 07/28/23 07/28/23 06:59 14:59 22:59 Intake Total 250 0 360 / 360 Balance 250 2089 360 / 360 Physical Exam Narrative: General: Patient is awake. Sitting in bedside chair. Frail and cachetic appearing. Head: Normocephalic. Atraumatic. EOM intact. Neck: No JVD. Cardiovascular: No gallops. No murmurs. Pacemaker palpable. Lungs: Diffuse wheezing. No crackles. On supplemental oxygen support. Skin: No jaundice. Abdomen: Normal bowel sounds, abdomen soft and nontender. Extremities: No cyanosis or clubbing. Musculoskeletal: Marked swelling of left upper extremity. Extremity is diffusely tender to palpation. Limited range of motion 2/2 pain. Exam overall is largely unchanged from yesterday's exam. Neurological: No myoclonus. Data 07/28/23 05:31 07/28/23 05:31 Micro: Microbiology 07/26/23 22:48 Blood Culture - Preliminary Blood NEGATIVE TO DATE 07/26/23 22:38 Blood Culture - Preliminary Blood NEGATIVE TO DATE A&P Assessment and plan (1) Left upper extremity swelling: Etiology unclear, broad differential Chest CT without acute findings Continue broad spectrum abx Daily exam Continue to elevate (2) Lung cancer: Status post radiation to right back Qualifiers: Laterality: unspecified laterality Lung location: unspecified part of lung Qualified Code(s): C34.90 - Malignant neoplasm of unspecified part of unspecified bronchus or lung (3) Nicotine addiction: Would benefit from cigarette cessation (4) Chronic respiratory failure with hypoxia: Continue supplemental oxygen support Continue home inhaler/nebs (5) CAD (coronary artery disease): Continue home meds Qualifiers: Coronary Disease-Associated Artery/Lesion type: [place] artery [place] vs. transplanted heart: [place] heart Associated angina: with other forms of angina Qualified Code(s): I25.118 - Atherosclerotic heart disease of [place] coronary artery with other forms of angina pectoris (6) Cor pulmonale: Plan DVT ppx: Lovenox Code: Full Attestations Medical Necessity Statement*: Patient's arm remains severely swollen, not responding to treatment as quickly as intended, requiring ongoing hospitalization for IV antibiotics, serial exams, and supportive care. Coding Level of Care Code Acute Code for [facility]wd Diagnoses Left upper extremity swelling M79.89 Lung cancer C34.90 Laterality: unspecified laterality Lung location: unspecified part of lung Nicotine addiction F17.200 Chronic respiratory failure with hypoxia J96.11 CAD (coronary artery disease) I25.118 Coronary Disease-Associated Artery/Lesion type: [place] artery [place] vs. transplanted heart: [place] heart Associated angina: with other forms of angina Cor pulmonale I27.81
[2023-07-28] MEDS: budesonide 0.5 mg/2 mL Neb INHALATION (20:05)
[2023-07-28 22:50] LABS: Vancomycin Trough 6.8 ug/mL (10-15)
[2023-07-28] MEDS: vancomycin 1,000 MG in sodium chloride 0.9% 250 ML 250 MG IV (23:07)
[2023-07-28] MEDS: diazePAM 5 mg Tablet PO (23:08)
[2023-07-29] VITALS (18 sets, daily range): BP systolic 101–138; BP diastolic 57–76; PULSE 77–101; RESP 14–20; TEMP 36.4–36.9; O2SAT 94–100
[2023-07-29] MEDS: enoxaparin 40 mg/0.4 mL Syringe SUBCUT ×2 (00:24→23:38)
[2023-07-29] MEDS: morphine 4 mg/mL SDV 1 mL 6 MG IVP ×2 (02:31→08:50)
[2023-07-29 05:40] LABS: Basophils % 0.4 %; Eosinophils # 0.2 10^3/uL (0.0-0.8); Eosinophils % 2.2 %; Lymphocytes # 1.1 10^3/uL (0.8-4.8); Lymphocytes % 14.5 %; Mean Corpuscular HGB Conc 29.3 g/dL (30-55); Mean Corpuscular Hemoglobin 27.6 pg (27-33); Mean Corpuscular Volume 94.4 fl (85-98); Mean Platelet Volume 9.3 fL (7.4-10.4); Monocytes # 0.8 10^3/uL (0.2-0.9); Neutrophils # 5.68 10^3/uL (1.8-7.7); Neutrophils % 72.6 %; Nucleated Red Blood Cells % 0 %; Platelet Count 156 10^3/cmm (157-399); Red Blood Count 2.86 10^6/uL (3.85-5.65); Red Cell Distribution Width 16.5 % (12.1-15.1); White Blood Count 7.81 10^3/uL (3.29-11.43)
[2023-07-29 06:03] LABS: Albumin Level 3.1 g/dL (3.5-5.2); Blood Urea Nitrogen 14 mg/dL (8-23); C Reactive Protein 136.6 mg/L (0.0-4.9); Calcium 8.4 mg/dL (8.5-10.5); Carbon Dioxide 31 mmol/L (22-29); Chloride 103 mmol/L (98-107); Glucose 148 mg/dL (65-115); Phosphorus 3.5 mg/dL (2.5-4.5); Sodium 140 mmol/L (136-145)
[2023-07-29 06:05] LABS: Blood Urea Nitrogen 14 mg/dL (8-23); Calcium 8.3 mg/dL (8.5-10.5); Carbon Dioxide 31 mmol/L (22-29); Chloride 103 mmol/L (98-107); Glucose 149 mg/dL (65-115); Osmolality Calculated 293 mOsm/kg (285-295); Sodium 140 mmol/L (136-145)
[2023-07-29] MEDS: budesonide 0.5 mg/2 mL Neb INHALATION ×2 (08:05→20:39)
[2023-07-29] MEDS: albuterol 2.5 mg/3 mL Neb INHALATION ×3 (08:05→20:39)
[2023-07-29] MEDS: roflumilast 500 mcg Tablet PO (08:49)
[2023-07-29] MEDS: diazePAM 5 mg Tablet PO ×2 (08:49→17:03)
[2023-07-29] MEDS: baclofen 10 mg Tablet PO (08:49)
[2023-07-29] MEDS: famotidine 20 mg Tablet PO ×2 (08:49→17:03)
[2023-07-29] MEDS: levothyroxine 75 mcg Tablet PO (08:49)
[2023-07-29] MEDS: metoprolol tartrate 25 mg Tablet 12.5 MG PO ×2 (08:49→21:39)
[2023-07-29] MEDS: calcitriol 0.25 mcg Capsule 0.5 MCG PO (08:52)
--- NOTE | 2023-07-29 10:51 | PC.CHAP ---
Pastoral Care Encounter/Spiritual Assessment Type of Contact [] Declined automatic furnace operator visit [] Patient/Family/Request visit [] Outpatient visit [] Follow-up visit [] Physician referral [] Code/Alert [x] Routine visit [] Staff referral [] Actively dying [] Patient sleeping [] Family support [] [] Out of room [] Palliative care [] [x] Receiving care in room [] Pre-surgical visit [] Trauma [] Long length of stay [] ICU visit [] Other: Relational/Emotional Strength [x] Patient feels connected with others/family/visitors/staff [] Distress [] Loneliness/isolation [] Abandonment Spirituality of Patient [x] Person of Debra [] Attends Restoration of their Debra [x] Believes in Prayer [] Reads Bible or Rastafari materials [] There are Spiritual issues to be addressed It Technical Support Specialist Interventions [x] Prayer [x] Active listening [x] Non-anxious presence [x] Spiritual/emotional support [] Crisis/trauma care [x] Spiritual counseling [] Bereavement support [] Provided bereavement packet [] Provided Bible/devotional materials [] Provided toy/stuffed animal, coloring book to patient or family member [] Provided Communion [] Anointing/[place] [] Salvation [x] Completed spiritual assessment [] Other: Impact on Illness or Injury [] Angry [] Fearful [] Anxious [] Often cries [] Exhaustion [] Unable to work [] Unable to attend mandaen [] Unable to walk/stand [] Unable to read [] Unable to drive [] Unable to eat/drink [] Unable to sleep [] Unable to be with family [] Patient intubated [] Other: Summary had tests waiting on doctors report negative feelmarie has a good attitude well go go home Time spent with patient 10 mins
--- NOTE | 2023-07-29 12:02 | P.PN_ITS ---
Subjective Subjective: Patient endorses continued left arm swelling, redness and pain. Still continues to describe the pain as severe. Pain medications not helping much. Very limited movement in extremity. Denies fevers, chills, or emesis. Medications: Reviewed: Yes Vitals/I&O/Wt Last Vital Signs Temp 97.9 F 07/29/23 08:00 Pulse 91 07/29/23 08:06 Resp 18 07/29/23 10:51 BP 138/65 07/29/23 08:00 Pulse Ox 100 07/29/23 10:51 O2 Del Method Nasal Cannula 07/29/23 08:06 O2 Flow Rate 3 07/29/23 08:06 07/28/23 07/29/23 07/29/23 22:59 06:59 14:59 Intake Total 840 / 1200 730 / 1930 240 / 240 Balance 840 / 1200 730 / 1930 240 / 240 Physical Exam Narrative: General: Patient is awake. Frail and cachetic appearing. Appears distressed. Head: Normocephalic. Atraumatic. EOM intact. Neck: No JVD. Cardiovascular: No gallops. No murmurs. Lungs: Diffuse wheezing. No crackles. On supplemental oxygen support. Skin: No jaundice. Abdomen: Normal bowel sounds, abdomen soft and nontender. Extremities: No cyanosis or clubbing. Musculoskeletal: Marked swelling of left upper extremity. Extremity is tender to palpation. Limited range of motion 2/2 pain.. Neurological: No myoclonus. Data 07/29/23 05:30 07/29/23 05:30 A&P Assessment and plan (1) Left upper extremity swelling: Continue broad spectrum abx Daily exam Continue to elevate, ICE as tolerated Pain is uncontrolled, off buprenorphine, adjusting analgesics (2) Lung cancer: Status post radiation to right back Qualifiers: Laterality: unspecified laterality Lung location: unspecified part of lung Qualified Code(s): C34.90 - Malignant neoplasm of unspecified part of unspecified bronchus or lung (3) Nicotine addiction: Would benefit from cigarette cessation (4) Chronic respiratory failure with hypoxia: Continue supplemental oxygen support Continue home inhaler/nebs (5) CAD (coronary artery disease): Continue home meds Qualifiers: Coronary Disease-Associated Artery/Lesion type: [place] artery [place] vs. transplanted heart: [place] heart Associated angina: with other forms of angina Qualified Code(s): I25.118 - Atherosclerotic heart disease of [place] coronary artery with other forms of angina pectoris (6) Cor pulmonale: Plan DVT ppx: Lovenox Code: Full Attestations Medical Necessity Statement*: Pt not responding to treatment as intended requiring ongoing hospitalization for IV abx, IV analgesics, and supportive care. Coding Level of Care Code Acute Code for Chg Fwd Diagnoses Left upper extremity swelling M79.89 Lung cancer C34.90 Laterality: unspecified laterality Lung location: unspecified part of lung Nicotine addiction F17.200 Chronic respiratory failure with hypoxia J96.11 CAD (coronary artery disease) I25.118 Coronary Disease-Associated Artery/Lesion type: [place] artery [place] vs. transplanted heart: [place] heart Associated angina: with other forms of angina Cor pulmonale I27.81
[2023-07-29] MEDS: morphine 4 mg/mL SDV 1 mL 8 MG IVP (20:22)
[2023-07-29] MEDS: vancomycin 1,000 MG in sodium chloride 0.9% 250 ML 250 MG IV (23:38)
[2023-07-30] VITALS (14 sets, daily range): BP systolic 103–138; BP diastolic 56–74; PULSE 87–113; RESP 14–20; TEMP 36.4–36.8; O2SAT 90–100
[2023-07-30] MEDS: morphine 4 mg/mL SDV 1 mL 8 MG IVP (01:41)
[2023-07-30 06:21] LABS: Basophils % 0.3 %; Eosinophils # 0.3 10^3/uL (0.0-0.8); Eosinophils % 4.5 %; Hematocrit 26.2 % (36-47); Lymphocytes # 1.1 10^3/uL (0.8-4.8); Lymphocytes % 17.8 %; Mean Corpuscular Hemoglobin 27.8 pg (27-33); Mean Platelet Volume 9.5 fL (7.4-10.4); Monocytes # 0.5 10^3/uL (0.2-0.9); Neutrophils # 4.08 10^3/uL (1.8-7.7); Neutrophils % 68.1 %; Nucleated Red Blood Cells % 0 %; Platelet Count 167 10^3/cmm (157-399); Red Blood Count 2.73 10^6/uL (3.85-5.65); Red Cell Distribution Width 16.9 % (12.1-15.1)
[2023-07-30 06:40] LABS: Blood Urea Nitrogen 11 mg/dL (8-23); Calcium 8.1 mg/dL (8.5-10.5); Carbon Dioxide 32 mmol/L (22-29); Chloride 107 mmol/L (98-107); Glucose 126 mg/dL (65-115); Osmolality Calculated 301 mOsm/kg (285-295); Sodium 145 mmol/L (136-145)
[2023-07-30] MEDS: calcitriol 0.25 mcg Capsule 0.5 MCG PO (08:22)
[2023-07-30] MEDS: roflumilast 500 mcg Tablet PO (08:25)
[2023-07-30] MEDS: famotidine 20 mg Tablet PO ×2 (08:26→17:29)
[2023-07-30] MEDS: levothyroxine 75 mcg Tablet PO (08:26)
[2023-07-30] MEDS: metoprolol tartrate 25 mg Tablet 12.5 MG PO ×2 (08:29→22:31)
[2023-07-30] MEDS: albuterol 2.5 mg/3 mL Neb INHALATION (08:56)
[2023-07-30] MEDS: budesonide 0.5 mg/2 mL Neb INHALATION (08:56)
[2023-07-30] MEDS: diazePAM 5 mg Tablet PO (10:53)
--- NOTE | 2023-07-30 16:53 | P.PN_ITS ---
Subjective Subjective: Patient reports continued severe pain and swelling in left arm. Still rating the pain 10 out of 10. Movement still worsens. Still with little function. We discussed pain management again. Would like to see her off IV narcotics as soon as possible. Offered trial of NSAIDs given antiinflammatories effect but she declined given her prior experience. She has a history of allergies to nsaid/i buprofen on chart. Medications: Reviewed: Yes Vitals/I&O/Wt Last Vital Signs Temp 98.3 F 07/30/23 16:00 Pulse 111 H 07/30/23 16:00 Resp 17 07/30/23 16:00 BP 136/69 07/30/23 16:00 Pulse Ox 94 07/30/23 16:00 O2 Del Method Nasal Cannula 07/30/23 08:56 O2 Flow Rate 3 07/30/23 08:56 07/30/23 07/30/23 07/30/23 06:59 14:59 22:59 Intake Total 250 / 850 480 / 480 Balance 250 / 850 480 / 480 Physical Exam Narrative: General: Patient is awake. Frail and cachetic appearing. No acute distress. Head: Normocephalic. Atraumatic. EOM intact. Neck: No JVD. Cardiovascular: No gallops. No murmurs. Lungs: Diffuse wheezing. No crackles. On supplemental oxygen support. Skin: No jaundice. Abdomen: Normal bowel sounds, abdomen soft and nontender. Extremities: No cyanosis or clubbing. Musculoskeletal: Marked swelling of left upper extremity. Extremity is tender to palpation. Limited range of motion 2/2 pain. Arm and forearm appear slightly improved. Hand still markedly swollen, minimally changed as compared to yesterday. Neurological: No myoclonus. Data 07/30/23 05:54 07/30/23 05:54 A&P Assessment and plan (1) Left upper extremity swelling: Continue broad spectrum abx Continue to elevate, ICE as tolerated Pain control has been an issue, eventually she understand she will need back on buprenorphine, in the interim, we are adjusting narcotics with intent to favor oral over IV as symptoms improve (2) Lung cancer: Status post radiation to right back Qualifiers: Laterality: unspecified laterality Lung location: unspecified part of lung Qualified Code(s): C34.90 - Malignant neoplasm of unspecified part of unspecified bronchus or lung (3) Nicotine addiction: Would benefit from cigarette cessation (4) Chronic respiratory failure with hypoxia: Continue supplemental oxygen support Continue home inhaler/nebs (5) CAD (coronary artery disease): Continue home meds Qualifiers: Coronary Disease-Associated Artery/Lesion type: [place] artery [place] vs. transplanted heart: [place] heart Associated angina: with other forms of angina Qualified Code(s): I25.118 - Atherosclerotic heart disease of [place] coronary artery with other forms of angina pectoris (6) Cor pulmonale: Plan DVT ppx: Lovenox Code: Full Attestations Medical Necessity Statement*: Pt not responding to treatment as intended requiring ongoing hospitalization for IV abx, IV analgesics, and supportive care. Coding Level of Care Code Acute Code for Chg Fwd Diagnoses Left upper extremity swelling M79.89 Lung cancer C34.90 Laterality: unspecified laterality Lung location: unspecified part of lung Nicotine addiction F17.200 Chronic respiratory failure with hypoxia J96.11 CAD (coronary artery disease) I25.118 Coronary Disease-Associated Artery/Lesion type: [place] artery [place] vs. transplanted heart: [place] heart Associated angina: with other forms of angina Cor pulmonale I27.81
[2023-07-30] MEDS: vancomycin 1,000 MG in sodium chloride 0.9% 250 ML 250 MG IV (22:33)
[2023-07-31] VITALS (11 sets, daily range): BP systolic 126–136; BP diastolic 64–77; PULSE 69–117; RESP 16–20; TEMP 36.4–36.8; O2SAT 93–100
[2023-07-31] MEDS: enoxaparin 40 mg/0.4 mL Syringe SUBCUT ×2 (00:03→23:56)
[2023-07-31] MEDS: diazePAM 5 mg Tablet PO ×2 (04:31→16:03)
[2023-07-31] MEDS: budesonide 0.5 mg/2 mL Neb INHALATION ×2 (08:35→20:06)
[2023-07-31] MEDS: albuterol 2.5 mg/3 mL Neb INHALATION ×2 (08:35→20:07)
[2023-07-31] MEDS: metoprolol tartrate 25 mg Tablet 12.5 MG PO ×2 (09:08→22:16)
[2023-07-31] MEDS: roflumilast 500 mcg Tablet PO (09:09)
[2023-07-31] MEDS: calcitriol 0.25 mcg Capsule 0.5 MCG PO (09:09)
[2023-07-31] MEDS: levothyroxine 75 mcg Tablet PO (09:10)
[2023-07-31] MEDS: famotidine 20 mg Tablet PO ×2 (09:10→17:10)
[2023-07-31] MEDS: diphenhydrAMINE 25 mg Capsule PO (11:27)
--- NOTE | 2023-07-31 14:33 | PC.NURSE ---
GABRIELE Longo had just rounded on pt at 1350 and went to assist another patient in another room, this nurse was in with another patient as well and the other 2 nurses on the [facility] nurses station were on lunch. This pt proceeded to walk down to the first floor after being directed back to her room just prior to this event taking place. The pt took the elevator to the first floor and was found sitting outside the main entrance smoking a cigarette with her portable oxygen tank. This nurse immediately told the pt she could not be smoking cigarettes on hospital grounds, especially with oxygen. The cigarette was removed from patients hand and pt was escorted back up to her room on med-surg. This nurse notified the charge nurse that pt needed a 1:1 and charge nurse notified Dr. Cast of pt leaving the floor, requiring a 1:1 as she is an elopement risk. Pt allowed this nurse and GABRIELE Longo to see if there was cigarettes in her purse, in which none were found. Pt educated on the importance of staying on the floor and not smoking on premises. Pt verbalized understanding and a nicotine patch is being ordered.
[2023-07-31] MEDS: docusate sodium 100 mg Capsule PO (17:10)
--- NOTE | 2023-07-31 17:52 | PM.PN ---
Subjective Subjective: Patient reports continued severe pain but function seems to be improving. She was able to hold her cellphone during our evaluation. Patient reports the pain and erythema have improved a little bit. Still having symptoms in elbow, upper arm and shoulder. Medications: Reviewed: Yes Vitals/I&O/Wt Last Vital Signs Temp 98.3 F 07/31/23 15:31 Pulse 104 H 07/31/23 15:31 Resp 18 07/31/23 15:31 BP 130/72 07/31/23 15:31 Pulse Ox 100 07/31/23 15:31 O2 Del Method Nasal Cannula 07/31/23 15:31 O2 Flow Rate 3 07/31/23 15:31 07/31/23 07/31/23 07/31/23 06:59 14:59 22:59 Intake Total 250 / 970 120 / 120 Balance 250 / 970 120 / 120 Physical Exam Narrative: General: Patient is awake. Frail and cachetic appearing. Head: Normocephalic. Atraumatic. EOM intact. Neck: No JVD. Cardiovascular: No lower extremity edema. Lungs: Tachypnea when talking. On supplemental oxygen support. Skin: No jaundice. Abdomen: Normal bowel sounds, abdomen soft and nontender. Extremities: No cyanosis or clubbing. Musculoskeletal: Left hand remains markedly swollen with overlying erythema. TTP. Function of LUE still markedly limited but seems to be improving as compared to prior exams. Neurological: No myoclonus. Data 07/30/23 05:54 07/30/23 05:54 A&P Assessment and plan (1) Left upper extremity swelling: Continue broad spectrum abx Continue to elevate, ICE as tolerated Continue current pain medications, now off IV narcotics If she continues to improve, possible discharge in next 24-48 hrs (2) Lung cancer: Status post radiation to right back Qualifiers: Laterality: unspecified laterality Lung location: unspecified part of lung Qualified Code(s): C34.90 - Malignant neoplasm of unspecified part of unspecified bronchus or lung (3) Nicotine addiction: Would benefit from cigarette cessation (4) Chronic respiratory failure with hypoxia: Continue supplemental oxygen support Continue home inhaler/nebs (5) CAD (coronary artery disease): Continue home meds Qualifiers: Coronary Disease-Associated Artery/Lesion type: [place] artery [place] vs. transplanted heart: [place] heart Associated angina: with other forms of angina Qualified Code(s): I25.118 - Atherosclerotic heart disease of [place] coronary artery with other forms of angina pectoris (6) Cor pulmonale: Plan DVT ppx: Lovenox Code: Full Attestations Medical Necessity Statement*: Pt requires ongoing hospitalization for IV antibiotics, serial exams, and supportive care. Coding Level of Care Code Acute Code for Chg Fwd Diagnoses Left upper extremity swelling M79.89 Lung cancer C34.90 Laterality: unspecified laterality Lung location: unspecified part of lung Nicotine addiction F17.200 Chronic respiratory failure with hypoxia J96.11 CAD (coronary artery disease) I25.118 Coronary Disease-Associated Artery/Lesion type: [place] artery [place] vs. transplanted heart: [place] heart Associated angina: with other forms of angina Cor pulmonale I27.81
--- NOTE | 2023-07-31 20:49 | PC.NURSE ---
Patient walked down the hallway as 1:1 was trying to stop her. O2 tubing stopped patient so she took it off (replaced with portable). Patient stood in [place] arguing with staff members about going outside to smoke a cigarette. Patient got her inhaler out of her purse and tried to give it to nursing staff, pt stated she doesn't want to breathe if she cant smoke . Patient told staff she is at her final stage in life and would rather then not to go outside and have 2 drags. Patient had a fat purification worker in her hand, nurse was successful to take the fat purification worker away and redirect patient back into room with 1:1 present again. Patient currently in room on the phone with son and continues to say shes at her final and wants a cigarette. Ana ALVAREZ, Alvaro ALVAREZ, Jewels SUAZO, Glenna WINKLER and Rachel WINKLER was all present to deescalate situation and explain to patient safety reasons why we can not go outside and smoke.
[2023-07-31 22:37] LABS: Vancomycin Trough 28.2 ug/mL (10-15)
[2023-08-01] VITALS (9 sets, daily range): BP systolic 113–154; BP diastolic 61–76; PULSE 93–110; RESP 12–20; TEMP 36.3–36.4; O2SAT 98–100
--- NOTE | 2023-08-01 04:02 | PC.NURSE ---
Patient attempted to leave the floor to smoke a cigarette. Charge Nurse Jewels SUAZO, Ana ALVAREZ, Glenna WINKLER, and this nurse convinced patient to return to her room and give her vacuum drier tender to the nurses. Patient stated she would rather smoke than breathe. This nurse contacted son Ye Lombardi by phone to discuss the possibility of a family member coming to sit with the patient overnight to keep her calm. The son agreed but then never showed. 1:1 sitter was present with patient for the rest of the shift.
--- NOTE | 2023-08-01 04:03 | PC.NURSE ---
This nurse heard BASEBALL SEWER HAND talking to patient about smoking policy and heard patient getting upset. This nurse went to assist. Patient stated multiple times to staff, there's no reason you can't let me go outside and smoke. Patient educated multiple times on smoking policy as well as safety risks. Patient tries to hand us her oxygen and stated If I can't smoke, then I don't want to breathe at all. Patient was eventually able to be calmed down and returned to her room. One-on-one sitter at bedside.
[2023-08-01 06:58] LABS: Vancomycin Trough 23.9 ug/mL (10-15)
[2023-08-01] MEDS: roflumilast 500 mcg Tablet PO (08:53)
[2023-08-01] MEDS: calcitriol 0.25 mcg Capsule 0.5 MCG PO (08:53)
[2023-08-01] MEDS: metoprolol tartrate 25 mg Tablet 12.5 MG PO (08:53)
[2023-08-01] MEDS: famotidine 20 mg Tablet PO (08:53)
[2023-08-01] MEDS: diphenhydrAMINE 25 mg Capsule PO (08:54)
[2023-08-01] MEDS: levothyroxine 75 mcg Tablet PO (08:54)
[2023-08-01] MEDS: albuterol 2.5 mg/3 mL Neb INHALATION (09:50)
[2023-08-01] MEDS: budesonide 0.5 mg/2 mL Neb INHALATION (09:52)
--- NOTE | 2023-08-01 15:14 | P.DS_ITS ---
Discharge Providers Date of Admission: 07/28/23 12:33 Date of Discharge: August 01, 2023 Attending Provider at Admission: Chris Galvan DO Attending Provider at Discharge: Carter Cast MD Consults: Orthopedics CT Surgery Primary Care Provider: Fei Laura DO Diagnoses at Discharge Discharge Diagnosis (1) Left upper extremity swelling: Status: Acute (2) Lung cancer: Status: Acute Qualifiers: Laterality: unspecified laterality Lung location: unspecified part of lung Qualified Code(s): C34.90 - Malignant neoplasm of unspecified part of unspecified bronchus or lung (3) Nicotine addiction: Status: Acute (4) Chronic respiratory failure with hypoxia: Status: Acute (5) CAD (coronary artery disease): Status: Acute Qualifiers: Coronary Disease-Associated Artery/Lesion type: [place] artery [place] vs. transplanted heart: [place] heart Associated angina: with other forms of angina Qualified Code(s): I25.118 - Atherosclerotic heart disease of [place] coronary artery with other forms of angina pectoris (6) Cor pulmonale: Status: Acute Reason for Visit Reason for Visit: pacemaker, swollen chest and left arm Hospital Course Hospital Course Sakina Lombardi is a 73 year old female with a past medical history significant for right lower lobe lung cancer status post XRT who presented with swelling, erythema and pain in left upper extremity. Patient found to have cellulitis treated with broad spectrum IV antiobiotics (vancomycin, cefepime). A central venous obstruction was initially suspected for which doppler ultrasound was negative for evidence of deep vein thrombosis. Chest CT without contrast was negative for acute findings as well. She was provided supportive and conservative care in addition to requiring multiple doses of IV analgesics. Her swelling, erythema, and pain eventually improved. She was rotated to oral antibiotics (cefdinir, doxycycline) at discharge. Of note, pain control was found to be a challenge. Initially the partial agonism effects of buprenorphine was making initial analgesics much less effective. Buprenorphine had to be held due to the need to treat acute pain. She will continue holding for an additional week and until she is off of oral hydromorphone. She will need to follow up with her PCP and prescribing p sierra. Patient discharged to home in stable condition. Physical Exam Narrative: General: Patient is awake.? Frail and cachetic appearing.? Sitting in bed. Head:? Normocephalic. Atraumatic. EOM intact. Neck: No JVD. Cardiovascular: No lower extremity edema. Lungs: Tachypnea when talking. On supplemental oxygen support.? Skin: No jaundice. Abdomen: Normal bowel sounds, abdomen soft and nontender. Extremities: No cyanosis or clubbing. Musculoskeletal: Left hand remains markedly swollen with overlying erythema. Neurological:? No myoclonus. Discharge Data Studies Completed and Pending Completed Studies During Hospitalization Category Date Time Status CT chest wo con [id number] Routine Cat Scan 07/27/23 11:14 Completed XR chest 1V portable [id number] Stat Exams 07/26/23 18:23 Completed XR shoulder LT 1V [id number] Stat Exams 07/27/23 00:27 Completed XR shoulder LT min 2V* [id number] Routine Exams 07/28/23 12:05 Completed XR wrist LT 1V [id number] Stat Exams 07/27/23 00:27 Completed US venous duplex upper extremity LT [CV venous duplex Ultrasound 07/26/23 21:50 [place] [id number]] Stat Radiology Impressions Chest X-Ray 07/26/23 18:23 IMPRESSION: 1. Stable right Mediport catheter. 2. Stable COPD . Venous Duplex 07/26/23 21:50 IMPRESSION: No evidence of deep vein thrombosis. Wrist X-Ray 07/27/23 00:27 IMPRESSION: 1. Chondrocalcinosis. 2. Radiocarpal arthritis. 3. Thumb interphalangeal arthritis. Laboratory Results WBC 6.00 10^3/uL (3.29-11.43) 07/30/23 05:54 RBC 2.73 10^6/uL (3.85-5.65) L 07/30/23 05:54 Hgb 7.60 g/dL (11.27-16.99) L 07/30/23 05:54 Hct 26.2 % (36-47) L 07/30/23 05:54 MCV 96.0 fl (85-98) 07/30/23 05:54 MCH 27.8 pg (27-33) 07/30/23 05:54 MCHC 29.0 g/dL (30-55) L 07/30/23 05:54 RDW 16.9 % (12.1-15.1) H 07/30/23 05:54 Plt Count 167 10^3/cmm (157-399) 07/30/23 05:54 MPV 9.5 fL (7.4-10.4) 07/30/23 05:54 Neut % (Auto) 68.1 % 07/30/23 05:54 Lymph % (Auto) 17.8 % 07/30/23 05:54 Jay % (Auto) 9.0 % 07/30/23 05:54 Eos % (Auto) 4.5 % 07/30/23 05:54 Baso % (Auto) 0.3 % 07/30/23 05:54 Neut # (Auto) 4.08 10^3/uL (1.8-7.7) 07/30/23 05:54 Lymph # (Auto) 1.1 10^3/uL (0.8-4.8) 07/30/23 05:54 Jay # (Auto) 0.5 10^3/uL (0.2-0.9) 07/30/23 05:54 Eos # (Auto) 0.3 10^3/uL (0.0-0.8) 07/30/23 05:54 Baso # (Auto) 0.0 10^3/uL (0.0-0.1) 07/30/23 05:54 Nucleated RBC % (auto) 0 % 07/30/23 05:54 Nucleated RBCs # 0.0 /100WBC 07/30/23 05:54 ESR 47 mm/hr (0-15) H 07/26/23 21:17 Sodium 145 mmol/L (136-145) 07/30/23 05:54 Potassium 4.0 mmol/L (3.5-5.1) 07/30/23 05:54 Chloride 107 mmol/L (98-107) 07/30/23 05:54 Carbon Dioxide 32 mmol/L (22-29) H 07/30/23 05:54 Anion Gap 10.0 (5-19) 07/30/23 05:54 BUN 11 mg/dL (8-23) 07/30/23 05:54 Creatinine 0.6 mg/dL (0.5-0.9) 07/30/23 05:54 GFR Calculation Not Reportable 07/30/23 05:54 Glucose 126 mg/dL (65-115) H 07/30/23 05:54 Calculated Osmolality 301 mOsm/kg (285-295) H 07/30/23 05:54 Calcium 8.1 mg/dL (8.5-10.5) L 07/30/23 05:54 Phosphorus 3.5 mg/dL (2.5-4.5) 07/29/23 05:30 Magnesium 1.8 mg/dL (1.7-2.3) 07/27/23 05:19 Total Bilirubin 0.8 mg/dL (0.15-1.2) 07/26/23 21:17 AST 28 U/L (0-32) 07/26/23 21:17 ALT 11 U/L (0-33) 07/26/23 21:17 Alkaline Phosphatase 115 U/L (35-105) H 07/26/23 21:17 C-Reactive Protein 136.6 mg/L (0.0-4.9) H 07/29/23 05:30 Total Protein 7.7 g/dL (6.6-8.7) 07/26/23 21:17 Albumin 3.1 g/dL (3.5-5.2) L 07/29/23 05:30 Globulin 3.9 g/dL (1.3-4.6) 07/26/23 21:17 Vancomycin Trough 23.9 ug/mL (10-15) H 08/01/23 06:15 Rheumatoid Factor 18.0 IU/mL (0-14) H 07/27/23 05:19 Cycl Citrul Peptide IgG <16 UNITS 07/27/23 05:19 Vitals Last Vital Signs Temp 97.6 F 08/01/23 14:42 Pulse 93 08/01/23 14:42 Resp 17 08/01/23 14:42 BP 113/61 08/01/23 14:42 Pulse Ox 100 08/01/23 14:42 O2 Del Method Nasal Cannula 08/01/23 11:17 O2 Flow Rate 3 08/01/23 09:52 Discharge Plan Discharge Patient Disposition: Home Condition: Stable Prescriptions: New doxycycline hyclate 100 mg tablet 100 mg PO BID 7 Days Qty: 14 0RF cefdinir 300 mg capsule 300 mg PO BID 7 Days Qty: 14 0RF hydromorphone 4 mg Tablet 8 mg PO Q4H PRN (Reason: SEVERE PAIN (PO 1ST)) 7 Days Qty: 42 0RF Valium 5 mg tablet 5 mg PO TID PRN (Reason: anxiety) 7 Days Qty: 20 0RF Continued magnesium 30 mg tablet 30 mg PO DAILY Qty: 90 6RF (DME) hospital bed See Rx Instructions .Route .MEDSUPPLY Qty: 1 0RF Rx Instructions: As directed Daliresp 500 mcg tablet 500 mcg PO DAILY Qty: 90 3RF montelukast 4 mg tablet,chewable 8 mg PO DAILY Qty: 60 5RF baclofen 10 mg tablet 10 mg PO Q8H PRN (Reason: muscle spasm) Qty: 90 2RF (DME) oxygen See Rx Instructions .Route .MEDSUPPLY Qty: 1 0RF Rx Instructions: HOME FILL SYSTEM- CONTINOUS FLOW calcitriol [Rocaltrol] 0.5 mcg capsule 0.5 mcg PO DAILY Qty: 90 3RF ipratropium-albuterol 0.5 mg-3 mg(2.5 mg base)/3 mL solution for nebulization 3 ml inhalation Q6H PRN (Reason: wheezing) Qty: 90 3RF bumetanide 0.5 mg tablet 0.5 mg PO DAILY Qty: 90 3RF potassium chloride 20 mEq/15 mL liquid 20 meq PO DAILY diphenhydramine HCl [Benadryl] 25 mg Capsule 50 mg PO QAM lidocaine 5 % adhesive patch,medicated 1 - 3 patch transdermal DAILY Rx Instructions: on for 12 hours off for 12 hours atorvastatin 40 mg tablet 40 mg PO BEDTIME levothyroxine 75 mcg tablet See Rx Instructions .ROUTE .COMPLEX Rx Instructions: 75 mcg po WEDNESDAY THROUGH WEDNESDAY ONLY Nitrostat 0.4 mg Tablet, Sublingual 0.4 mg SUBLINGUAL Q5M PRN (Reason: Chest Pain) Rx Instructions: do not exceed 3 doses per episode budesonide 0.5 mg/2 mL suspension for nebulization 0.5 mg inhalation BID PRN (Reason: unknown) Ventolin HFA 90 mcg/actuation HFA aerosol inhaler 2 puff INHALATION Q4H PRN (Reason: Shortness Of Breath) metoprolol tartrate 25 mg tablet 12.5 mg PO BID Theraworx See Rx Instructions .ROUTE .COMPLEX Rx Instructions: as needed Held buprenorphine-naloxone [Suboxone] 8-2 mg Film 1 film SUBLINGUAL Q8H Hold Instructions: Resume on 08/08/23. Hold for one week. Rx Instructions: (rx filled 07/19/23 30d/s pt states not taken for months) Discharge Orders: Discharge Order (Routine); Ordered 08/01/23 Ordered By: Carter Cast Other Ambulatory Orders: DME: Wheelchair (Order) Location: None Selected Ordered By: Carter Cast Referrals: Fei Laura, [Primary Care Provider] - 1-3 days (We have notified your physician's clinic of the need for a follow-up appointment to be scheduled. If you have not heard from them within the next 2 business days, please call them directly. You may also reach out to our general operations manager at [phone] and she can assist you.) Discharge Diet: Advance as tolerated and Usual diet Discharge Activity: Resume usual activity and Increase activity as tolerated Patient Instructions: Cellulitis, Doxycycline (By mouth), Diazepam (By mouth), Hydromorphone (By mouth), Cefdinir (By mouth), Opioid Safety Activity Restrictions/Additional Instructions: 1. Take medications as prescribed. 2. No driving or operating machinery while on opiates or valium. 3. Follow up with outpatient providers as ordered. 4. Recommend smoking cessation. 5. No smoking or open flame sources around oxygen sources. Discharge Attestations Time Spent in Discharge Care*: greater than 30 min Quality Metrics Clinical Quality Measures [ No reported AMI, CVA or VTE this stay] Coding Level of Care Code Acute Code for Chg Fwd Diagnoses Left upper extremity swelling M79.89 Lung cancer C34.90 Laterality: unspecified laterality Lung location: unspecified part of lung Nicotine addiction F17.200 Chronic respiratory failure with hypoxia J96.11 CAD (coronary artery disease) I25.118 Coronary Disease-Associated Artery/Lesion type: [place] artery [place] vs. transplanted heart: [place] heart Associated angina: with other forms of angina Cor pulmonale I27.81
--- NOTE | 2023-08-01 15:24 | PC.NURSE ---
Upon discharging pt left behind a pair of shoes. I called and left a voicemail for pt, but was able to get in touch with her son upon calling his phone. This nurse said I would leave them at the nurses station for them to come excelsior picker. Ye expressed understanding.
== END 2023-08-01 14:00 | disposition home or self-care (01) | DRG 603 ==
LOC: ER 07-27 00:17 → MEDSURG 07-27 00:22
PROVIDERS: Emergency Medicine; Admitting Provider Internal Medicine; Emergency Provider Emergency Medicine; PCP Family Medicine; Visit Provider Internal Medicine
DX: L03.114 Cellulitis of left upper limb (principal); C34.31 Malignant neoplasm of lower lobe, right bronchus or lung; R64 Cachexia; Z68.1 Body mass index [BMI] 19.9 or less, adult; J96.11 Chronic respiratory failure with hypoxia; Z92.3 Personal history of irradiation; Z95.828 Presence of other vascular implants and grafts; Z95.0 Presence of cardiac pacemaker; I10 Essential (primary) hypertension; I25.10 Atherosclerotic heart disease of native coronary artery without angina pectoris; Z86.73 Personal history of transient ischemic attack (TIA), and cerebral infarction without residual deficits; E78.5 Hyperlipidemia, unspecified; J44.9 Chronic obstructive pulmonary disease, unspecified; F17.210 Nicotine dependence, cigarettes, uncomplicated; Z85.850 Personal history of malignant neoplasm of thyroid; E89.0 Postprocedural hypothyroidism; G89.29 Other chronic pain; Z88.8 Allergy status to other drugs, medicaments and biological substances
CPT/HCPCS: 20610; 36415; 36591; 71045; 71250; 73020; 73030; 73100; 80048; 80053; 80069; 80202; 83735; 85025; 85651; 86140; 86200; 86431; 87040; 93005; 93971; 94640; 94664; 96365; 96367; 96372; 96375; 96376; 97166; 99285; A4565; G0378; J0573; J0692; J0696; J1170; J1200; J1650; J2270; J2405; J3370; J7030; J7050; J7613; J7626

== ENCOUNTER 2023-08-05 18:38 | Emergency (ER) | payer MEDICAID, SELFPAY ==
[2023-08-05] VITALS (8 sets, daily range): BP systolic 109–146; BP diastolic 53–72; PULSE 100–108; RESP 16–28; TEMP 36.6; O2SAT 89–94; BMI 16.6
--- NOTE | 2023-08-05 18:51 | XRR_ITS ---
PROCEDURE INFORMATION: Exam: XR Right Hip Exam date and time: 08/05/2023 7:34 PM Age: 73 years old Clinical indication: Injury or trauma; Fall; Sprain or strain; Right; Hip; Prior surgery; Surgery date: 6+ months; Surgery type: Gamma nail TECHNIQUE: Imaging protocol: Radiologic exam of the right hip. Views: 1 view hip with pelvis when performed. COMPARISON: CR XR hip RT 2-3V wo/w pel* [id number] 03/01/2023 4:25 PM FINDINGS: Bones/joints: Intramedullary denise and compression screw in the proximal right femur. No acute fracture. The bones are intact. Soft tissues: Unremarkable. Gastrointestinal tract: Moderate stool in the transverse colon. XR/XR hip RT 2-3V wo/w pel* [id number] IMPRESSION: No acute findings.
--- NOTE | 2023-08-05 18:51 | CTR_ITS ---
PROCEDURE INFORMATION: Exam: CT Head Without Contrast Exam date and time: 08/05/2023 8:33 PM Age: 73 years old Clinical indication: Injury or trauma; Fall; Blunt trauma (contusions or hematomas) TECHNIQUE: Imaging protocol: Computed tomography of the head without contrast. Radiation optimization: All CT scans at this facility use at least one of these dose optimization techniques: automated exposure control; mA and/or kV adjustment per patient size (includes targeted exams where dose is matched to clinical indication); or iterative reconstruction. REPORTING DATA: Count of CT and Cardiac NM exams in prior 12 months: This patient has received 8 known CTs and 0 known cardiac nuclear medicine studies in the 12 months prior to the current study. COMPARISON: CT head wo con* [id number] 06/04/2023 12:59 PM RADIATION DOSE METRICS: Total DLP (mGy-cm): 1007.35 FINDINGS: Brain: Mild diffuse cortical volume loss. Moderate hypodensities in supratentorial periventricular and subcortical white matter, consistent with microangiopathy. No intracranial hemorrhage. Encephalomalacia in the superior left cerebellum. Cerebral ventricles: No ventriculomegaly. Paranasal sinuses: Visualized sinuses are unremarkable. No fluid levels. Mastoid air cells: Small left mastoid effusion. The right mastoid is clear. Orbital cavities: Bilateral cataract surgery. Bones/joints: Unremarkable. No acute fracture. Soft tissues: Unremarkable. Vasculature: No hyperdense artery. CT/CT head wo con* [id number] IMPRESSION: 1. No acute intracranial abnormality.
--- NOTE | 2023-08-05 18:51 | XRR_ITS ---
PROCEDURE INFORMATION: Exam: XR Right Ankle Exam date and time: 08/05/2023 7:29 PM Age: 73 years old Clinical indication: Injury or trauma; Fall TECHNIQUE: Imaging protocol: Radiologic exam of the right ankle. Views: 3 or more views. COMPARISON: No relevant prior studies available. FINDINGS: Bones/joints: Old healed fractures in the distal diaphysis of the right tibia and fibula. Old fracture or avascular necrosis in the distal 5th metatarsal. No acute fracture. Mild degenerative changes of the ankle joint. Soft tissues: Normal. XR/XR ankle RT min 3V* [id number] IMPRESSION: No acute findings.
--- NOTE | 2023-08-05 18:51 | CTR_ITS ---
PROCEDURE INFORMATION: Exam: CT Cervical Spine Without Contrast Exam date and time: 08/05/2023 8:33 PM Age: 73 years old Clinical indication: Injury or trauma; Fall; Blunt trauma TECHNIQUE: Imaging protocol: Computed tomography of the cervical spine without contrast. Radiation optimization: All CT scans at this facility use at least one of these dose optimization techniques: automated exposure control; mA and/or kV adjustment per patient size (includes targeted exams where dose is matched to clinical indication); or iterative reconstruction. REPORTING DATA: Count of CT and Cardiac NM exams in prior 12 months: This patient has received 8 known CTs and 0 known cardiac nuclear medicine studies in the 12 months prior to the current study. COMPARISON: CT cervical spin wo con* [id number] 06/04/2023 12:59 PM RADIATION DOSE METRICS: Total DLP (mGy-cm): 125 FINDINGS: Bones/joints: The vertebral body stature is maintained. Mild anterior subluxation of C7 on T1. No fracture. Hypertrophic degenerative changes of the facets. Severe disc space narrowing with degenerative endplate sclerosis and mild spurring at C3-C4 through C6-C7. Posterior endplate spurring at C7-T1. Mild central canal stenosis at C5-C6 and C7-T1. Multilevel bilateral bony foraminal stenosis. Lungs: Lung apices are normal. Vasculature: Bilateral carotid bulb calcifications. Soft tissues: Unremarkable. Other findings: Severe emphysema. CT/CT cervical spin wo con* [id number] IMPRESSION: 1. No acute findings. 2. Multilevel degenerative changes.
--- NOTE | 2023-08-05 18:51 | ECG_ITS ---
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 Measurements Intervals [place] Rate: 106 P: 76 NJ: 139 QRS: 66 QRSD: 85 T: 58 QT: 330 QTc: 439 Interpretive Statements SINUS TACHYCARDIA SEPTAL MYOCARDIAL INFARCTION , PROBABLY OLD [40+ ms Q WAVE IN V1/V2] Compared to ECG 07/26/2023 21:17:54 Myocardial infarct finding now present Ectopic atrial tachycardia, multifocal no longer present Electronically Signed On 08-05-2023 21:24:42 CDT by Chante Salmon M.D. [id number]
--- NOTE | 2023-08-05 18:51 | XRR_ITS ---
PROCEDURE INFORMATION: Exam: XR Right Knee Exam date and time: 08/05/2023 7:31 PM Age: 73 years old Clinical indication: Injury or trauma; Fall; Sprain or strain; Patella or knee; Right TECHNIQUE: Imaging protocol: Radiologic exam of the right knee. Views: 3 views. COMPARISON: CR (LOW EXM, ) 08/05/2023 7:29 PM FINDINGS: Bones/joints: Old healed fracture in the proximal diaphysis of the right fibula. No acute fracture. Degenerative calcifications in the menisci. No visible knee effusion. Soft tissues: Normal. XR/XR knee RT 3V* [id number] IMPRESSION: No acute findings.
--- NOTE | 2023-08-05 18:51 | XRR_ITS ---
PROCEDURE INFORMATION: Exam: XR Right Wrist Exam date and time: 08/05/2023 7:25 PM Age: 73 years old Clinical indication: Pain; Wrist; Right; Additional info: Fall, red, swelling TECHNIQUE: Imaging protocol: Radiologic exam of the right wrist. Views: 3 or more views. COMPARISON: CR ( EX, ) 08/05/2023 7:19 PM FINDINGS: Bones/joints: No acute fracture. Degenerative changes of the radiocarpal joint. Osteocartilaginous bodies in the radiocarpal and ulnar carpal joints. Soft tissues: Soft tissue swelling of the dorsal hand. XR/XR wrist RT min 3V* [id number] IMPRESSION: No acute findings.
--- NOTE | 2023-08-05 18:51 | XRR_ITS ---
PROCEDURE INFORMATION: Exam: XR Right Elbow Exam date and time: 08/05/2023 7:19 PM Age: 73 years old Clinical indication: Pain; Elbow; Right; Additional info: Fall TECHNIQUE: Imaging protocol: Radiologic exam of the right elbow. Views: 3 or more views. COMPARISON: No relevant prior studies available. FINDINGS: Bones/joints: Normal. Soft tissues: Normal. XR/XR elbow RT min 3V* [id number] IMPRESSION: No acute findings.
--- NOTE | 2023-08-05 18:59 | ED_ITS ---
HPI - Syncope General: Chief Complaint: Syncope Stated Complaint: FALL Time Seen by Provider: 08/05/23 18:39 Source: patient and EMS Mode of arrival: EMS Limitations: no limitations History of Present Illness: 73-year-old female is here by ambulance she states that 2 days ago she had tripped and fell she states she had tripped and landed on the door first hit her head had a mild headache she states she then landed on her right side she has right elbow and wrist pain along with right leg pain. She denies any worsening improving factors. Denies any chest pain. Associated symptoms: Reports headache(s); Deny abdominal pain, chest pain, fever(s) or nausea Review of Systems Const: Denies: fever(s), chills, body aches or change in appetite Eyes: Denies: blurry vision or eye discomfort ENMT: Denies: throat pain or dental pain Card: Denies: chest pain Resp: Denies: dyspnea GI: Denies: abdominal pain, nausea or vomiting Musc: Reports: back pain and extremity pain; Denies: neck pain Neuro: Reports: headache(s) PFSH ED PFSH: Medical History Actinic keratosis due to exposure to sunlight Acute exacerbation of chronic obstructive pulmonary disease Aortic cusp regurgitation Avulsion fracture of left talus Benign essential hypertension Bradycardia CAD (coronary artery disease) Chronic pain Chronic respiratory failure with hypoxia Chronic rhinosinusitis Closed intertrochanteric fracture of right hip COPD (chronic obstructive pulmonary disease) Cor pulmonale Cor pulmonale CVA (cerebral vascular accident) Dyslipidemia (high LDL; low HDL) Fall History of COPD Hx of carotid stenosis Hypovitaminosis D Infected epidermoid cyst Left shoulder pain Leg pain, left Leg pain, medial Lump of right breast Lung cancer Lung nodule Neck strain Nicotine addiction Nicotine dependence, cigarettes, with unspecified nicotine-induced disorders Orthopnea Orthostatic hypotension Plantar porokeratosis, acquired Sacral decubitus ulcer Seizure-like activity Sinus node dysfunction Sinus pause Skin lesions Skin tear of right upper arm without complication Smoking addiction SOB (shortness of breath) Syncopal episodes Thyroid cancer Surgical History H/O thyroidectomy History of ankle surgery History of back surgery History of bilateral carpal tunnel release History of bronchoscopy History of hip surgery History of lumpectomy History of rectal surgery Hx of hysterectomy Port-A-Cath in place S/P hardware removal Spine Status post cardiac pacemaker procedure Status post open reduction and internal fixation (ORIF) of fracture Family History Brother Leukemia Diabetes Lung disease Mother Anesthesia complication CAD (coronary artery disease) Father Bleeding disorder Clotting disorder CAD (coronary artery disease) Cancer Stroke Sister CAD (coronary artery disease) Chronic kidney disease (CKD) Lung disease Family/Other Diabetes Stroke Grandfather Suicide Denies family history of Dementia Social History Smoking and tobacco status: current every day smoker cigarettes Packs smoked per day: 0.5 Years cigarettes smoked: 55 [ Other cigarette details: Hx of 2 PPD x 50 Years, started at age 12] Quit status (tobacco): considering quitting Second hand smoke exposure: Yes Smoking risk assessment/counseling performed?: Yes Alcohol intake: never Desire information about alcohol rehabilitation?: No Counseling given: No Substance/Drug Use: never Desire information about substance/drug rehabilitation?: No Counseling given: No Adopted: No Lives independently: Yes Household members: none Housing: Apartment Marital status: / Current occupational status: disabled Do you think of yourself as: Straight/Heterosexual Current gender identity: Female Physical Exam Const: COMMON NORMALS: no acute distress, patient oriented x3 and healthy hansel earing HENMT: COMMON NORMALS: normocephalic and atraumatic HEAD & SCALP: normocephalic and atraumatic Neck/C-Spine: COMMON NORMALS: full ROM and supple Chest: COMMONS NORMALS: normal inspection of the chest Resp: COMMON NORMALS: normal respiratory effort Cardio: COMMON NORMALS: regular rate, regular rhythm and No murmurs present (Cardio) RATE: regular rate RHYTHM: regular rhythm GI: COMMON NORMALS: Normal to inspection, nondistended, normoactive bowel sounds present, Soft to palpation, non-tender and no masses PALPATION: Yes Soft to palpation Extremity: COMMON NORMALS: full ROM NARRATIVE EXTREMITY EXAM: tenderness to right knee and hip no obvious deformity. tenderness to righ wrist and elbow. Neuro: COMMON NORMALS: patient oriented x3, moves all extremities and no focal motor deficits Psych: COMMON NORMALS: mental status grossly normal, Normal thought process present and cooperative THOUGHT PROCESS: Normal thought process present Skin: COMMON NORMALS: no rashes or lesions noted and no wounds GENERAL SKIN EXAM: no rashes or lesions noted Course Vital Signs: Vital signs: Vital Signs Temperature 97.9 F 08/05/23 18:43 Pulse Rate 100 08/05/23 21:30 Respiratory Rate 20 H 08/05/23 21:30 Blood Pressure 110/58 08/05/23 21:30 Pulse Oximetry 92 08/05/23 21:30 Oxygen Delivery Me thod Nasal Cannula 08/05/23 18:43 Oxygen Flow Rate 2 08/05/23 18:43 MDM - Syncope Medical Decision Making Patient presents here after a fall she does have a contusion to his right arm and her right knee x-rays here are normal she has been ambulatory CTs are normal as well blood work is normal she is stable for discharge she is to follow-up with PCP and return if worsening she understands agrees to plan. Medical Records I reviewed the patient's medical records. Lab Data I reviewed the patient's lab results. 08/05/23 19:11 08/05/23 19:11 Radiology Impressions Ankle X-Ray 08/05/23 18:51 IMPRESSION: No acute findings. Cervical Spine CT 08/05/23 18:51 IMPRESSION: 1. No acute findings. 2. Multilevel degenerative changes. Elbow X-Ray 08/05/23 18:51 IMPRESSION: No acute findings. Head CT 08/05/23 18:51 IMPRESSION: 1. No acute intracranial abnormality. Hip/Pelvis X-Ray 08/05/23 18:51 IMPRESSION: No acute findings. Knee X-Ray 08/05/23 18:51 IMPRESSION: No acute findings. Wrist X-Ray 08/05/23 18:51 IMPRESSION: No acute findings. Lumbar Spine X-Ray 08/05/23 18:59 IMPRESSION: No acute findings. Laboratory Results WBC 12.77 10^3/uL (3.29-11.43) H 08/05/23 19:11 RBC 3.18 10^6/uL (3.85-5.65) L 08/05/23 19:11 Hgb 8.90 g/dL (11.27-16.99) L 08/05/23 19:11 Hct 29.6 % (36-47) L 08/05/23 19:11 MCV 93.1 fl (85-98) 08/05/23 19:11 MCH 28.0 pg (27-33) 08/05/23 19:11 MCHC 30.1 g/dL (30-55) 08/05/23 19:11 RDW 16.7 % (12.1-15.1) H 08/05/23 19:11 Plt Count 226 10^3/cmm (157-399) 08/05/23 19:11 MPV 8.7 fL (7.4-10.4) 08/05/23 19:11 Neut % (Auto) 86.1 % 08/05/23 19:11 Lymph % (Auto) 4.5 % 08/05/23 19:11 Redwood % (Auto) 8.6 % 08/05/23 19:11 Eos % (Auto) 0.1 % 08/05/23 19:11 Baso % (Auto) 0.2 % 08/05/23 19:11 Neut # (Auto) 11.01 10^3/uL (1.8-7.7) H 08/05/23 19:11 Lymph # (Auto) 0.6 10^3/uL (0.8-4.8) L 08/05/23 19:11 Redwood # (Auto) 1.1 10^3/uL (0.2-0.9) H 08/05/23 19:11 Eos # (Auto) 0.0 10^3/uL (0.0-0.8) 08/05/23 19:11 Baso # (Auto) 0.0 10^3/uL (0.0-0.1) 08/05/23 19:11 Nucleated RBC % (auto) 0 % 08/05/23 19:11 Nucleated RBCs # 0.0 /100WBC 08/05/23 19:11 Sodium 136 mmol/L (136-145) 08/05/23 19:11 Potassium 3.9 mmol/L (3.5-5.1) 08/05/23 19:11 Chloride 95 mmol/L (98-107) L 08/05/23 19:11 Carbon Dioxide 34 mmol/L (22-29) H 08/05/23 19:11 Anion Gap 10.9 (5-19) 08/05/23 19:11 BUN 11 mg/dL (8-23) 08/05/23 19:11 Creatinine 0.7 mg/dL (0.5-0.9) 08/05/23 19:11 GFR Calculation Not Reportable 08/05/23 19:11 Glucose 184 mg/dL (65-115) H 08/05/23 19:11 Calculated Osmolality 286 mOsm/kg (285-295) 08/05/23 19:11 Calcium 9.0 mg/dL (8.5-10.5) 08/05/23 19:11 Total Bilirubin 0.5 mg/dL (0.15-1.2) 08/05/23 19:11 AST 21 U/L (0-32) 08/05/23 19:11 ALT 13 U/L (0-33) 08/05/23 19:11 Alkaline Phosphatase 89 U/L (35-105) 08/05/23 19:11 Total Protein 6.5 g/dL (6.6-8.7) L 08/05/23 19:11 Albumin 2.9 g/dL (3.5-5.2) L 08/05/23 19:11 Globulin 3.6 g/dL (1.3-4.6) 08/05/23 19:11 Discharge Plan Discharge Patient Disposition: Home Clinical Impression: Fall, Contusion Condition: Stable Prescriptions: No Action magnesium 30 mg tablet 30 mg PO DAILY Qty: 90 6RF (DME) hospital bed See Rx Instructions .Route .MEDSUPPLY Qty: 1 0RF Rx Instructions: As directed Daliresp 500 mcg tablet 500 mcg PO DAILY Qty: 90 3RF montelukast 4 mg tablet,chewable 8 mg PO DAILY Qty: 60 5RF baclofen 10 mg tablet 10 mg PO Q8H PRN (Reason: muscle spasm) Qty: 90 2RF (DME) oxygen See Rx Instructions .Route .MEDSUPPLY Qty: 1 0RF Rx Instructions: HOME FILL SYSTEM- CONTINOUS FLOW calcitriol [Rocaltrol] 0.5 mcg capsule 0.5 mcg PO DAILY Qty: 90 3RF ipratropium-albuterol 0.5 mg-3 mg(2.5 mg base)/3 mL solution for nebulization 3 ml inhalation Q6H PRN (Reason: wheezing) Qty: 90 3RF bumetanide 0.5 mg tablet 0.5 mg PO DAILY Qty: 90 3RF potassium chloride 20 mEq/15 mL liquid 20 meq PO DAILY buprenorphine-naloxone [Suboxone] 8-2 mg Film 1 film SUBLINGUAL Q8H Hold Instructions: Resume on 08/08/23. Hold for one week. Rx Instructions: (rx filled 07/19/23 30d/s pt states not taken for months) diphenhydramine HCl [Benadryl] 25 mg Capsule 50 mg PO QAM lidocaine 5 % adhesive patch,medicated 1 - 3 patch transdermal DAILY Rx Instructions: on for 12 hours off for 12 hours atorvastatin 40 mg tablet 40 mg PO BEDTIME levothyroxine 75 mcg tablet See Rx Instructions .ROUTE .COMPLEX Rx Instructions: 75 mcg po WEDNESDAY THROUGH WEDNESDAY ONLY Nitrostat 0.4 mg Tablet, Sublingual 0.4 mg SUBLINGUAL Q5M PRN (Reason: Chest Pain) Rx Instructions: do not exceed 3 doses per episode budesonide 0.5 mg/2 mL suspension for nebulization 0.5 mg inhalation BID PRN (Reason: unknown) Ventolin HFA 90 mcg/actuation HFA aerosol inhaler 2 puff INHALATION Q4H PRN (Reason: Shortness Of Breath) metoprolol tartrate 25 mg tablet 12.5 mg PO BID Theraworx See Rx Instructions .ROUTE .COMPLEX Rx Instructions: as needed doxycycline hyclate 100 mg tablet 100 mg PO BID 7 Days Qty: 14 0RF cefdinir 300 mg capsule 300 mg PO BID 7 Days Qty: 14 0RF Valium 5 mg tablet 5 mg PO TID PRN (Reason: anxiety) 7 Days Qty: 20 0RF hydromorphone 8 mg tablet 8 mg PO Q4H PRN (Reason: pain) Qty: 21 0RF Discharge Orders: Discharge ED (Routine); Ordered 08/05/23 Ordered By: Ramiro Shankar Referrals: Fei Laura DO [Primary Care Provider] - 1-3 days Discharge Diet: Advance as tolerated Discharge Activity: Resume usual activity Patient Instructions: Contusion in Adults (ED), Fall Prevention (ED) Coding Level of Care Code ED Manager Of Learning for Delmer Ray
--- NOTE | 2023-08-05 18:59 | XRR_ITS ---
PROCEDURE INFORMATION: Exam: XR Lumbosacral Spine Exam date and time: 08/05/2023 7:40 PM Age: 73 years old Clinical indication: Injury or trauma; Fall; Sprain or strain, lumbar ligaments; Prior surgery; Surgery date: 6+ months; Surgery type: Gamma nail TECHNIQUE: Imaging protocol: Radiologic exam of the lumbosacral spine. Views: 2 or 3 views. COMPARISON: CR (PELVIS, ) 08/05/2023 7:34 PM FINDINGS: Bones/joints: Mild leftward lumbar curvature. The vertebral body stature is intact. No fracture or subluxation. Mild disc space narrowing at L3-L4 through L5-S1. Compression screw in the proximal right femur. Soft tissues: Unremarkable. Gastrointestinal tract: Large amount of stool in the transverse colon. XR/XR lumbar spine 2-3V* [id number] IMPRESSION: No acute findings.
[2023-08-05 19:22] LABS: Basophils % 0.2 %; Eosinophils % 0.1 %; Hematocrit 29.6 % (36-47); Lymphocytes # 0.6 10^3/uL (0.8-4.8); Lymphocytes % 4.5 %; Mean Corpuscular HGB Conc 30.1 g/dL (30-55); Mean Corpuscular Volume 93.1 fl (85-98); Mean Platelet Volume 8.7 fL (7.4-10.4); Monocytes # 1.1 10^3/uL (0.2-0.9); Monocytes % 8.6 %; Neutrophils # 11.01 10^3/uL (1.8-7.7); Neutrophils % 86.1 %; Nucleated Red Blood Cells % 0 %; Platelet Count 226 10^3/cmm (157-399); Red Blood Count 3.18 10^6/uL (3.85-5.65); Red Cell Distribution Width 16.7 % (12.1-15.1); White Blood Count 12.77 10^3/uL (3.29-11.43)
[2023-08-05 19:36] LABS: Alanine Aminotransferase 13 U/L (0-33); Albumin Level 2.9 g/dL (3.5-5.2); Alkaline Phosphatase 89 U/L (35-105); Anion Gap 10.9 (5-19); Aspartate Amino Transferase 21 U/L (0-32); Blood Urea Nitrogen 11 mg/dL (8-23); Carbon Dioxide 34 mmol/L (22-29); Chloride 95 mmol/L (98-107); Globulin 3.6 g/dL (1.3-4.6); Glucose 184 mg/dL (65-115); Osmolality Calculated 286 mOsm/kg (285-295); Potassium 3.9 mmol/L (3.5-5.1); Sodium 136 mmol/L (136-145); Total Bilirubin 0.5 mg/dL (0.15-1.2); Total Protein 6.5 g/dL (6.6-8.7)
== END 2023-08-05 22:47 | disposition home or self-care (01) ==
PROVIDERS: Emergency Provider Emergency Medicine; PCP Family Medicine
DX: S40.021A Contusion of right upper arm, initial encounter (principal); S80.01XA Contusion of right knee, initial encounter; F17.210 Nicotine dependence, cigarettes, uncomplicated; I25.10 Atherosclerotic heart disease of native coronary artery without angina pectoris; J44.9 Chronic obstructive pulmonary disease, unspecified; Z86.73 Personal history of transient ischemic attack (TIA), and cerebral infarction without residual deficits; E78.5 Hyperlipidemia, unspecified; Z85.118 Personal history of other malignant neoplasm of bronchus and lung; Z95.0 Presence of cardiac pacemaker; W01.0XXA Fall on same level from slipping, tripping and stumbling without subsequent striking against object, initial encounter
CPT/HCPCS: 36415; 70450; 72100; 72125; 73080; 73110; 73502; 73562; 73610; 80053; 85025; 93005; 99284

== ENCOUNTER 2023-08-20 17:44 | Emergency (ER) | payer MEDICAID, SELFPAY ==
[2023-08-20 17:46] VITALS: BP 129/72; PULSE 83; RESP 22; TEMP 36.4; O2SAT 98; BMI 15.5
--- NOTE | 2023-08-20 19:55 | ED_ITS ---
HPI - Extremity Problem General: Chief complaint: Extremity Problem,Nontraumatic Stated complaint: sent by uc/swollen legs Time Seen by Provider: 08/20/23 19:40 History of Present Illness: 73-year-old female smoker with a history of pulmonary hypertension and right- sided heart failure who presents to the emergency department with recurrent bilateral lower extremity edema. She is being managed with Bumex 0.5 mg p.o. daily. She has noticed this over the last 5 to 7 days. She has chronic orthopnea and cannot tell any difference. She has chronic hypoxic respiratory failure and is on the usual amount of oxygen. Patient was seen at urgent care and sent to the emergency department for dose of IV diuretics. Associated symptoms: Deny chest pain, fever(s) or rash Review of Systems General: Reports: 10 or more systems reviewed and unremarkable except in HPI and below Const: Denies: fever(s), chills or body aches Eyes: Denies: change in vision ENMT: Denies: throat pain Card: Denies: chest pain, edema or syncope GI: Denies: abdominal pain, nausea, vomiting or diarrhea : Denies: flank pain, dysuria or urinary frequency Musc: Denies: neck pain or back pain Skin/Breast: Denies: rash Neuro: Denies: weakness in extremities or lack of coordination PFSH ED PFSH: Medical History Actinic keratosis due to exposure to sunlight Acute exacerbation of chronic obstructive pulmonary disease Aortic cusp regurgitation Avulsion fracture of left talus Benign essential hypertension Bradycardia CAD (coronary artery disease) Chronic pain Chronic respiratory failure with hypoxia Chronic rhinosinusitis Closed intertrochanteric fracture of right hip COPD (chronic obstructive pulmonary disease) Cor pulmonale Cor pulmonale CVA (cerebral vascular accident) Dyslipidemia (high LDL; low HDL) Fall History of COPD Hx of carotid stenosis Hypovitaminosis D Infected epidermoid cyst Left shoulder pain Leg pain, left Leg pain, medial Lump of right breast Lung cancer Lung nodule Neck strain Nicotine addiction Nicotine dependence, cigarettes, with unspecified nicotine-induced disorders Orthopnea Orthostatic hypotension Plantar porokeratosis, acquired Sacral decubitus ulcer Seizure-like activity Sinus node dysfunction Sinus pause Skin lesions Skin tear of right upper arm without complication Smoking addiction SOB (shortness of breath) Syncopal episodes Thyroid cancer Surgical History H/O thyroidectomy History of ankle surgery History of back surgery History of bilateral carpal tunnel release History of bronchoscopy History of hip surgery History of lumpectomy History of rectal surgery Hx of hysterectomy Port-A-Cath in place S/P hardware removal Spine Status post cardiac pacemaker procedure Status post open reduction and internal fixation (ORIF) of fracture Family History Brother Leukemia Diabetes Lung disease Mother Anesthesia complication CAD (coronary artery disease) Father Bleeding disorder Clotting disorder CAD (coronary artery disease) Cancer Stroke Sister CAD (coronary artery disease) Chronic kidney disease (CKD) Lung disease Family/Other Diabetes Stroke Grandfather Suicide Denies family history of Dementia Social History Smoking and tobacco status: current every day smoker cigarettes Packs smoked per day: 0.5 Years cigarettes smoked: 55 [ Other cigarette details: Hx of 2 PPD x 50 Years, started at age 12] Quit status (tobacco): considering quitting Second hand smoke exposure: Yes Smoking risk assessment/counseling performed?: Yes Alcohol intake: never Desire information about alcohol rehabilitation?: No Counseling given: No Substance/Drug Use: never Desire information about substance/drug rehabilitation?: No Counseling given: No Adopted: No Lives independently: Yes Household members: none Housing: Apartment Marital status: / Current occupational status: disabled Do you think of yourself as: Straight/Heterosexual Current gender identity: Female Physical Exam Narrative: EXAM NARRATIVE: Patient appears elderly and chronically ill. She is using her home oxygen. Patient is sitting in a wheelchair on arrival. She does have bilateral lower extremity pitting edema. It is pretty unremarkable when you walk in the room however when compared to the rest of her body which is extremely thin with visible tendon and bone, it is noticeably edematous in comparison. She has slightly decreased breath sounds and occasionally has some rhonchi. She is not in any respiratory distress. Patient does have palpable dorsalis pedis pulses. However, she has delayed capillary refill in her toes. There is a small superficial skin wound on the right distal one third of her anterior tibia. No apparent cellulitis. Const: COMMON NORMALS: no limitations, alert and well nourished EXAM LIMITATIONS: no altered mental status HENMT: COMMON NORMALS: normocephalic, atraumatic and external ears normal HEAD & SCALP: normocephalic and atraumatic EXTERNAL EAR: Yes external ears normal MOUTH: no muffled voice Eye: COMMON NORMALS: EOMs intact bilaterally, conjunctivae normal and no scleral icterus CONJUNCTIVA: Yes conjunctivae normal Neck/C-Spine: COMMON NORMALS: no JVD GENERAL: Yes normal visual inspection and Yes trachea midline Cardio: COMMON NORMALS: no JVD, regular rate and regular rhythm RATE: regular rate RHYTHM: regular rhythm Neuro: COMMON NORMALS: moves all extremities, no focal motor deficits and no sensory deficits noted SENSORIUM/ORIENTATION: Yes alert SPEECH: speech normal Course Vital Signs: Vital signs: Vital Signs Temperature 97.6 F 08/20/23 17:46 Pulse Rate 79 08/20/23 21:02 Respiratory Rate 22 H 08/20/23 17:46 Blood Pressure 133/63 08/20/23 21:02 Pulse Oximetry 100 08/20/23 21:02 Oxygen Delivery Me thod Nasal Cannula 08/20/23 20:16 Oxygen Flow Rate 3 08/20/23 20:16 MDM - Extremity (Nontraumatic) Medical Decision Making 73-year-old female with chronic hypertension and cor pulmonale with vascular heart disease who presents with a recurrence of bilateral lower extremity edema. She has CKD. Her Lasix was changed to Bumex. It has been working well until the last few days. Patient is satting normally on her chronic home oxygen settings. The plan is to get access to her port, obtain BMP to check electrolytes and then give her 2 mg of IV Bumex as requested from outpatient team. Lab Data 08/20/23 19:58 Laboratory Results Sodium 140 mmol/L (136-145) 08/20/23 19:58 Potassium 3.7 mmol/L (3.5-5.1) 08/20/23 19:58 Chloride 99 mmol/L (98-107) 08/20/23 19:58 Carbon Dioxide 34 mmol/L (22-29) H 08/20/23 19:58 Anion Gap 10.7 (5-19) 08/20/23 19:58 BUN 12 mg/dL (8-23) 08/20/23 19:58 Creatinine 0.9 mg/dL (0.5-0.9) 08/20/23 19:58 GFR Calculation Not Reportable 08/20/23 19:58 Glucose 113 mg/dL (65-115) 08/20/23 19:58 Calculated Osmolality 291 mOsm/kg (285-295) 08/20/23 19:58 Calcium 9.3 mg/dL (8.5-10.5) 08/20/23 19:58 No radiology studies performed this visit ED provider radiology interpretation(s): NO images Discharge Plan Discharge Patient Disposition: Home Clinical Impression: Edema, peripheral, Tricuspid valve regurgitation, Pulmonary hypertension, Right heart failure, Insufficiency, arterial, peripheral, Smokes tobacco daily Condition: Stable Prescriptions: No Action magnesium 30 mg tablet 30 mg PO DAILY Qty: 90 6RF (DME) hospital bed See Rx Instructions .Route .MEDSUPPLY Qty: 1 0RF Rx Instructions: As directed potassium chloride 20 mEq/15 mL liquid 10 meq PO DAILY Qty: 450 2RF Daliresp 500 mcg tablet 500 mcg PO DAILY Qty: 90 3RF montelukast 4 mg tablet,chewable 8 mg PO DAILY Qty: 60 5RF baclofen 10 mg tablet 10 mg PO Q8H PRN (Reason: muscle spasm) Qty: 90 2RF lidocaine-prilocaine 2.5-2.5 % cream 1 applic topical DAILY PRN (Reason: pain) Qty: 50 3RF (DME) oxygen See Rx Instructions .Route .MEDSUPPLY Qty: 1 0RF Rx Instructions: HOME FILL SYSTEM- CONTINOUS FLOW calcitriol [Rocaltrol] 0.5 mcg capsule 0.5 mcg PO DAILY Qty: 90 3RF ipratropium-albuterol 0.5 mg-3 mg(2.5 mg base)/3 mL solution for nebulization 3 ml inhalation Q6H PRN (Reason: wheezing) Qty: 90 3RF bumetanide 0.5 mg tablet 0.5 mg PO DAILY Qty: 90 3RF albuterol sulfate [Ventolin HFA] 90 mcg/actuation HFA aerosol inhaler 2 puff INHALATION Q4H PRN (Reason: Shortness Of Breath) Qty: 18 4RF buprenorphine-naloxone [Suboxone] 8-2 mg Film 1 film SUBLINGUAL Q8H Hold Instructions: Resume on 08/08/23. Hold for one week. Rx Instructions: (rx filled 07/19/23 30d/s pt states not taken for months) diphenhydramine HCl [Benadryl] 25 mg Capsule 50 mg PO QAM lidocaine 5 % adhesive patch,medicated 1 - 3 patch transdermal DAILY Rx Instructions: on for 12 hours off for 12 hours atorvastatin 40 mg tablet 40 mg PO BEDTIME levothyroxine 75 mcg tablet See Rx Instructions .ROUTE .COMPLEX Rx Instructions: 75 mcg po WEDNESDAY THROUGH WEDNESDAY ONLY Nitrostat 0.4 mg Tablet, Sublingual 0.4 mg SUBLINGUAL Q5M PRN (Reason: Chest Pain) Rx Instructions: do not exceed 3 doses per episode budesonide 0.5 mg/2 mL suspension for nebulization 0.5 mg inhalation BID PRN (Reason: unknown) metoprolol tartrate 25 mg tablet 12.5 mg PO BID Theraworx See Rx Instructions .ROUTE .COMPLEX Rx Instructions: as needed Discharge Orders: Discharge ED (Routine); Ordered 08/20/23 Ordered By: Marshall Lam Referrals: Fei Laura DO [Primary Care Provider] - 4-7 days Discharge Diet: Low Salt Patient Instructions: Opioid Safety, Pain Management Activity Restrictions/Additional Instructions: You have been found to have pulmonary hypertension on your echocardiogram in 2021. You also had severe tricuspid regurgitation as well as mild to moderate aortic valve and mitral valve thickening with regurgitation. The combination of these things has led to some congestive heart failure. Congestive heart failure can lead to pooling of fluids in a gravity dependent fashion, such as seen in peripheral edema of the legs. I would recommend that you follow-up with cardiology to have a repeat echocardiogram. There is a possibility if your valvular heart disease progresses, you may need to see cardiothoracic surgery for procedure. Coding Level of Care Code ED Sausage Cooker for Delmer Ray
[2023-08-20] MEDS: bumetanide 0.25 mg/mL SDV 4 mL 2 MG IVP (20:15)
[2023-08-20 20:16] VITALS: BP 129/54; PULSE 82; O2SAT 99
[2023-08-20 20:33] LABS: Anion Gap 10.7 (5-19); Blood Urea Nitrogen 12 mg/dL (8-23); Calcium 9.3 mg/dL (8.5-10.5); Carbon Dioxide 34 mmol/L (22-29); Chloride 99 mmol/L (98-107); Glucose 113 mg/dL (65-115); Osmolality Calculated 291 mOsm/kg (285-295); Potassium 3.7 mmol/L (3.5-5.1); Sodium 140 mmol/L (136-145)
[2023-08-20 21:02] VITALS: BP 133/63; PULSE 79; O2SAT 100
== END 2023-08-20 21:04 | disposition home or self-care (01) ==
PROVIDERS: Emergency Provider Emergency Medicine; PCP Family Medicine
DX: R60.0 Localized edema (principal); I07.1 Rheumatic tricuspid insufficiency; I27.20 Pulmonary hypertension, unspecified; I11.0 Hypertensive heart disease with heart failure; I50.810 Right heart failure, unspecified; I73.9 Peripheral vascular disease, unspecified; F17.210 Nicotine dependence, cigarettes, uncomplicated; Z95.0 Presence of cardiac pacemaker; J44.9 Chronic obstructive pulmonary disease, unspecified; I25.10 Atherosclerotic heart disease of native coronary artery without angina pectoris; Z86.73 Personal history of transient ischemic attack (TIA), and cerebral infarction without residual deficits; E78.5 Hyperlipidemia, unspecified; Z85.118 Personal history of other malignant neoplasm of bronchus and lung; Z85.850 Personal history of malignant neoplasm of thyroid
CPT/HCPCS: 80048; 96374; 99284; J3490

== ENCOUNTER 2023-09-02 14:58 | Oncology outpatient (recurring) (ONCR) | payer MEDICAID, SELFPAY ==
[2023-09-02 15:38] LABS: Basophils # 0.1 10^3/uL (0.0-0.1); Basophils % 0.6 %; Eosinophils # 0.4 10^3/uL (0.0-0.8); Eosinophils % 4.3 %; Hematocrit 32.9 % (36-47); Lymphocytes # 1.6 10^3/uL (0.8-4.8); Lymphocytes % 19.2 %; Mean Corpuscular HGB Conc 30.1 g/dL (30-55); Mean Corpuscular Hemoglobin 27.7 pg (27-33); Mean Corpuscular Volume 91.9 fl (85-98); Mean Platelet Volume 9.4 fL (7.4-10.4); Monocytes # 0.8 10^3/uL (0.2-0.9); Monocytes % 9.8 %; Neutrophils # 5.31 10^3/uL (1.8-7.7); Neutrophils % 65.9 %; Nucleated Red Blood Cells % 0 %; Platelet Count 166 10^3/cmm (157-399); Red Blood Count 3.58 10^6/uL (3.85-5.65); Red Cell Distribution Width 17.3 % (12.1-15.1); White Blood Count 8.07 10^3/uL (3.29-11.43)
[2023-09-02 16:13] LABS: Alanine Aminotransferase 11 U/L (0-33); Alkaline Phosphatase 117 U/L (35-105); Anion Gap 9.8 (5-19); Aspartate Amino Transferase 24 U/L (0-32); Blood Urea Nitrogen 13 mg/dL (8-23); Calcium 9.7 mg/dL (8.5-10.5); Carbon Dioxide 37 mmol/L (22-29); Chloride 95 mmol/L (98-107); Free T4 Free Thyroxine 1.38 ng/dL (0.82-1.77); Globulin 3.2 g/dL (1.3-4.6); Glucose 131 mg/dL (65-115); Osmolality Calculated 288 mOsm/kg (285-295); Potassium 3.8 mmol/L (3.5-5.1); Sodium 138 mmol/L (136-145); Thyroid Stimulating Hormone 1.79 uIU/mL (0.27-4.20); Total Bilirubin 0.4 mg/dL (0.15-1.2); Total Protein 7.2 g/dL (6.6-8.7)
[2023-09-02 16:45] LABS: 25 Hydroxy Vitamin D 15 ng/mL (30-100)
== END 2023-09-28 23:59 | disposition home or self-care (01) ==
LOC: ONCMED 14:59
PROVIDERS: PCP Family Medicine; Visit Provider Internal Medicine Medical Oncology
DX: C34.31 Malignant neoplasm of lower lobe, right bronchus or lung (principal); J44.9 Chronic obstructive pulmonary disease, unspecified; J96.11 Chronic respiratory failure with hypoxia; I27.81 Cor pulmonale (chronic); F17.210 Nicotine dependence, cigarettes, uncomplicated; I73.9 Peripheral vascular disease, unspecified; M79.89 Other specified soft tissue disorders; Z99.81 Dependence on supplemental oxygen; I35.1 Nonrheumatic aortic (valve) insufficiency; E87.6 Hypokalemia; T50.2X5A Adverse effect of carbonic-anhydrase inhibitors, benzothiadiazides and other diuretics, initial encounter; E55.9 Vitamin D deficiency, unspecified; D64.9 Anemia, unspecified; I50.32 Chronic diastolic (congestive) heart failure
CPT/HCPCS: 36591; 80053; 82306; 83735; 84439; 84443; 85025; 99214

== ENCOUNTER 2023-09-13 14:51 | Outpatient (CLI) | payer MEDICAID, SELFPAY ==
--- NOTE | 2023-09-13 15:00 | USCV_ITS ---
Maria C, Sakina Age: 73 Gender: F : 1950 Exam Date: 09/13/2023 15:09 Ordering Phys: Chante Salmon MD ([email or web address]) Technologist: CT [place] [facility] [place]: pvd Risk Factors: Previous Vascular Surgery: RIGHT LEFT BP: 120.0 / 71.00 BP: 127.0/ 80.00 0 0 Waveform Velocity (cm/s) Velocity (cm/s) Waveform Biphasic 112.9 Iliac Prox 114.8 Monophasic Biphasic 131.2 Iliac Mid 109.8 Monophasic Biphasic 155.4 Iliac Distal 104.7 Monophasic Biphasic 84.2 PARCEL CONTRACTOR 90.8 Monophasic Biphasic 98.3 SFA Prox 104.1 Monophasic Biphasic 127.6 SFA Mid 145.1 Monophasic Biphasic 73.9 SFA Dist 107.0 Monophasic Biphasic 81.3 POP 92.4 Monophasic Monophasic 59.9 SPECIAL EDUCATION ITINERANT TEACHER 51.6 Monophasic Monophasic 32.4 DPA 67.7 Monophasic 0.7 THANG 0.9 FINDINGS Mild diffuse plaques in the iliac and femoral arteries bilaterally. Resting THANG of 0.7 on the right side and 0.9 on the left side CONCLUSIONS Abnormal resting ABIs, suggesting moderate peripheral artery disease on the right side and mild peripheral artery disease on the left side. Dr Chante Salmon MD [facility] (Electronically Signed) Final Date: 14 September 2023 16:40 S
== END 2023-09-13 14:52 | disposition home or self-care (01) ==
PROVIDERS: PCP Family Medicine; Visit Provider Internal Medicine Cardiovascular Disease
DX: I70.203 Unspecified atherosclerosis of native arteries of extremities, bilateral legs (principal)
CPT/HCPCS: 93925

== ENCOUNTER → 2023-09-16 17:00 | Outpatient (BNVA) | payer MEDICAID, SELFPAY | PROVIDERS: PCP Family Medicine; Visit Provider Family Medicine | DX: E87.6 Hypokalemia (principal); E83.42 Hypomagnesemia; M62.838 Other muscle spasm | CPT/HCPCS: 80048; 81000; 82607; 82746; 83735; 84100 ==

== ENCOUNTER 2023-10-23 15:03 | Emergency (ER) | payer MEDICAID, SELFPAY ==
[2023-10-23 15:24] VITALS: PULSE 81; RESP 17; TEMP 36.8; O2SAT 98; BMI 16.6
--- NOTE | 2023-10-23 16:02 | CTR_ITS ---
PROCEDURE INFORMATION: Exam: CT Head Without Contrast Exam date and time: 10/23/2023 4:14 PM Age: 73 years old Clinical indication: Injury or trauma; Fall; Blunt trauma (contusions or hematomas); Consciousness not specified; Additional info: Fall, vision changes, on eliquis TECHNIQUE: Imaging protocol: Computed tomography of the head without contrast. Radiation optimization: All CT scans at this facility use at least one of these dose optimization techniques: automated exposure control; mA and/or kV adjustment per patient size (includes targeted exams where dose is matched to clinical indication); or iterative reconstruction. REPORTING DATA: Count of CT and Cardiac NM exams in prior 12 months: This patient has received 10 known CTs and 0 known cardiac nuclear medicine studies in the 12 months prior to the current study. COMPARISON: CT head wo con* [id number] 08/05/2023 8:33 PM RADIATION DOSE METRICS: Total DLP (mGy-cm): 941.68 FINDINGS: Brain: Mild, diffuse atrophy of the brain.There is ill-defined, fairly symmetric low-density within the cerebral deep white matter bilaterally which is likely the sequela of chronic ischemic change due to small vessel disease. No CT evidence of mass effect, intracranial hemorrhage, or acute infarct. Cerebral ventricles: No ventriculomegaly. Paranasal sinuses: Visualized sinuses are unremarkable. No fluid levels. Mastoid air cells: Visualized mastoid air cells are well aerated. Bones/joints: Unremarkable. No acute fracture. Soft tissues: Small right frontal scalp hematoma. CT/CT head wo con* [id number] IMPRESSION: No acute intracranial abnormality.
[2023-10-23 17:02] VITALS: BP 138/61; PULSE 71; RESP 15; O2SAT 90
[2023-10-23 17:10] LABS: Basophils # 0.1 10^3/uL (0.0-0.1); Basophils % 0.8 %; Eosinophils # 0.3 10^3/uL (0.0-0.8); Hematocrit 33.1 % (36-47); Lymphocytes # 1.4 10^3/uL (0.8-4.8); Lymphocytes % 14.7 %; Mean Corpuscular HGB Conc 29.9 g/dL (30-55); Mean Corpuscular Hemoglobin 27.3 pg (27-33); Mean Corpuscular Volume 91.2 fl (85-98); Monocytes # 0.9 10^3/uL (0.2-0.9); Monocytes % 9.3 %; Neutrophils # 6.58 10^3/uL (1.8-7.7); Neutrophils % 71.4 %; Nucleated Red Blood Cells % 0 %; Platelet Count 196 10^3/cmm (157-399); Red Blood Count 3.63 10^6/uL (3.85-5.65); Red Cell Distribution Width 16.2 % (12.1-15.1); White Blood Count 9.21 10^3/uL (3.29-11.43)
[2023-10-23 17:24] LABS: INR 1.51 (0.8-1.2)
[2023-10-23 17:28] LABS: Alanine Aminotransferase 8 U/L (0-33); Albumin Level 4.2 g/dL (3.5-5.2); Alkaline Phosphatase 131 U/L (35-105); Anion Gap 12.2 (5-19); Aspartate Amino Transferase 21 U/L (0-32); Blood Urea Nitrogen 17 mg/dL (8-23); Calcium 9.5 mg/dL (8.5-10.5); Carbon Dioxide 34 mmol/L (22-29); Chloride 97 mmol/L (98-107); Glucose 92 mg/dL (65-115); Osmolality Calculated 289 mOsm/kg (285-295); Potassium 4.2 mmol/L (3.5-5.1); Sodium 139 mmol/L (136-145); Total Bilirubin 0.2 mg/dL (0.15-1.2); Total Protein 7.2 g/dL (6.6-8.7)
--- NOTE | 2023-10-23 18:16 | W.ED.FALL ---
HPI - Fall General: Chief Complaint: Fall Stated Complaint: reported fall Time Seen by Provider: 10/23/23 16:49 History of Present Illness: Sakina is a 73-year-old female that presents to the emergency department with bruising to her face after a fall from standing. Patient states she actually fell a week ago today. She was evaluated by her primary care as well as ophthalmology. She reports since her fall she has had bruising to her face as well as vision change. Patient is anticoagulated on Eliquis. She is treated for atrial fibrillation, heart disease, hypertension, end-stage COPD and requires oxygen, lung cancer, and heart failure. She has had 2 prior myocardial infarctions and has had 2 prior CVAs. A month ago she underwent ultrasound bilateral carotids And further workup for heart disease Associated symptoms-after fall: Reports difficulty walking; Denies abdominal pain, chest pain, confusion, headache(s), hematuria or neck pain Review of Systems General: Reports: 10 or more systems reviewed and unremarkable except in HPI and below Const: Denies: fever(s), chills, change in appetite, change in weight, fatigue or malaise Eyes: Reports: change in vision and blurry vision; Denies: eye discomfort, eye discharge or eye redness ENMT: Denies: throat pain, enlarged tonsils, odynophagia, hoarseness, ear or mastoid pain, ear discharge, change in hearing, tinnitus, nasal discharge, nasal congestion, post nasal drip or sinus pain Card: Denies: chest pain, palpitations, irregular heart rhythm, edema, dyspnea on exertion, orthopnea or leg pain with exertion Resp: Denies: dyspnea, productive cough, non-productive cough, wheezing, stridor or chest congestion GI: Denies: abdominal pain, nausea, vomiting, dysphagia, diarrhea, constipation, bloating, GI cramping or hematochezia : Denies: flank pain, difficulty voiding, dysuria, urinary frequency, urinary urgency, urinary hesitancy, oliguria or hematuria Musc: Denies: neck pain, back pain, extremity pain, joint pain, joint swelling, joint redness, joint warmth or muscle weakness Skin/Breast: Denies: rash, pruritus, erythema, photosensitivity or new lesions Neuro: Reports: weakness in extremities and difficulty walking; Denies: headache(s), numbness in extremities, sensory changes, lack of coordination, frequent falls, dizziness, confusion, Slurred speech present, difficulty communicating thoughts, seizure-like activity or involuntary movements Endo: Denies: polyuria, polydipsia or tired all the time Edgar/Lymph: Denies: easy bruising or easy bleeding PFSH ED PFSH: Medical History Actinic keratosis due to exposure to sunlight Acute exacerbation of chronic obstructive pulmonary disease Aortic cusp regurgitation Avulsion fracture of left talus Benign essential hypertension Bradycardia CAD (coronary artery disease) Chronic pain Chronic respiratory failure with hypoxia Chronic rhinosinusitis Closed intertrochanteric fracture of right hip COPD (chronic obstructive pulmonary disease) Cor pulmonale Cor pulmonale CVA (cerebral vascular accident) Dyslipidemia (high LDL; low HDL) Fall History of COPD Hx of carotid stenosis Hypovitaminosis D Infected epidermoid cyst Left shoulder pain Leg pain, left Leg pain, medial Lump of right breast Lung cancer Lung nodule Neck strain Nicotine addiction Nicotine dependence, cigarettes, with unspecified nicotine-induced disorders Orthopnea Orthostatic hypotension Plantar porokeratosis, acquired Sacral decubitus ulcer Seizure-like activity Sinus node dysfunction Sinus pause Skin lesions Skin tear of right upper arm without complication Smoking addiction SOB (shortness of breath) Syncopal episodes Thyroid cancer Surgical History H/O thyroidectomy History of ankle surgery History of back surgery History of bilateral carpal tunnel release History of bronchoscopy History of hip surgery History of lumpectomy History of rectal surgery Hx of hysterectomy Port-A-Cath in place S/P hardware removal Spine Status post cardiac pacemaker procedure Status post open reduction and internal fixation (ORIF) of fracture Family History Brother Leukemia Diabetes Lung disease Mother Anesthesia complication CAD (coronary artery disease) Father Bleeding disorder Clotting disorder CAD (coronary artery disease) Cancer Stroke Sister CAD (coronary artery disease) Chronic kidney disease (CKD) Lung disease Family/Other Diabetes Stroke Grandfather Suicide Denies family history of Dementia Social History Smoking and tobacco/nicotine status: current every day tobacco/nicotine user cigarettes Packs smoked per day: 0.5 Years cigarettes smoked: 55 [ Other cigarette details: Hx of 2 PPD x 50 Years, started at age 12] Quit status (tobacco/nicotine): considering quitting Second hand smoke exposure: Yes Alcohol intake: never Substance/Drug Use: never Adopted: No Lives independently: Yes Household members: none Housing: Apartment Marital status: / Current occupational status: disabled Do you think of yourself as: Straight/Heterosexual Current gender identity: Female Physical Exam Const: COMMON NORMALS: no acute distress, patient oriented x3 and alert GENERAL APPEARANCE: cooperative ORIENTATION/CONSCIOUSNESS: Yes awake, Yes oriented to person, Yes oriented to place and Yes oriented to time HENMT: COMMON NORMALS: normocephalic and atraumatic HEAD & SCALP: normocephalic and atraumatic HEAD IMAGES: 1. Ecchymosis FACE & SINUS: normal facial exam MOUTH: Normal oral and palatal mucosa present THROAT: posterior oropharynx normal Eye: COMMON NORMALS: Equal, round and reactive pupils present, EOMs intact bilaterally, conjunctivae normal and no scleral icterus GENERAL EYE: appearance normal, both eyes and all related structures ALIGNMENT: Yes alignment normal PERIORBITAL: periorbital findings normal CONJUNCTIVA: Yes conjunctivae normal PUPIL: Yes Equal, round and reactive pupils present Neck/C-Spine: COMMON NORMALS: full ROM and no meningeal signs GENERAL: Yes normal visual inspection Lymph: LYMPHATIC: no lymphadenopathy noted Chest: COMMONS NORMALS: normal inspection of the chest Breast/axilla inspection: Yes no chest deformity, asymmetry, normal contours, no nodules, masses, tenderness Resp: COMMON NORMALS: normal respiratory effort, No retractions, No use of accessory muscles and clear to auscultation bilaterally EFFORT & INSPECTION: Yes able to speak in complete sentences and Yes symmetric chest movement AUSCULTATION: clear to auscultation bilaterally Cardio: COMMON NORMALS: regular rate, regular rhythm and Peripheral pulses 2+ throughout RATE: regular rate RHYTHM: regular rhythm PERIPHERAL PULSES: Peripheral pulses 2+ throughout GI: COMMON NORMALS: Normal to inspection, nondistended, normoactive bowel sounds present, Soft to palpation, non-tender and No hepatosplenomegaly present INSPECTION: Yes normal to inspection AUSCULTATION: Yes normoactive bowel sounds PALPATION: Yes Soft to palpation and Yes No hepatosplenomegaly present RECTAL EXAM: deferred Extremity: COMMON NORMALS: normal to inspection GENERAL: Yes normal exam except as noted Neuro: COMMON NORMALS: patient oriented x3 SENSORIUM/ORIENTATION: Yes alert, Yes oriented to person, Yes oriented to place and Yes oriented to time MENINGEAL SIGNS: Yes no meningeal signs CRANIAL NERVES: Yes CN normal except as noted SPEECH: speech normal MOTOR EXAM: 5/5 motor strength present throughout (Motor strength 4 -/5 throughout. Unchanged from baseline) and no tremor noted PUPIL EXAM: Normal pupillary reactivity/response: bilateral and Mid position: bilateral Psych: COMMON NORMALS: mental status grossly normal, Normal thought process present, cooperative, activity/motor behavior normal, denies homicidal ideation and denies suicidal ideation THOUGHT PROCESS: Normal thought process present Skin: COMMON NORMALS: no rashes or lesions noted, no wounds and turgor normal GENERAL SKIN EXAM: no rashes or lesions noted and turgor normal Course Vital Signs: Vital signs: Vital Signs Temperature 98.2 F 10/23/23 15:24 Pulse Rate 71 10/23/23 17:02 Respiratory Rate 15 10/23/23 17:02 Blood Pressure 138/61 10/23/23 17:02 Pulse Oximetry 90 10/23/23 17:02 Oxygen Delivery Me thod Nasal Cannula 10/23/23 17:02 Oxygen Flow Rate 3 10/23/23 17:02 MDM - Fall Medical Decision Making Sakina is a 73-year-old female that presents to the emergency department with bruising to her face after a fall from standing. Patient states she actually fell a week ago today. She was evaluated by her primary care as well as ophthalmology. She reports since her fall she has had bruising to her face as well as vision change. Patient is anticoagulated on Eliquis. She is treated for atrial fibrillation, heart disease, hypertension, end-stage COPD and requires oxygen, lung cancer, and heart failure. She has had 2 prior myocardial infarctions and has had 2 prior CVAs. Patient states a month ago she underwent ultrasound bilateral carotids And she was noted as having severe narrowing that may result in a stroke. CT head today was negative for acute intracranial process. Patient does not have a leukocytosis or new anemia. Platelets are 196. No electrolyte abnormality. Patient and I discussed her most recent symptoms and the need for additional diagnostics. Patient declines at this time stating that she knows her health is not good but does not want to proceed with any further evaluation. Patient as well as her son verbalized understanding that she may have had a stroke and may be at risk for worsening health and functioning. They verbalized understanding that she could go home and have further decline and may . Lab Data 10/23/23 16:56 10/23/23 16:[address] 10/23/23 16:02 IMPRESSION: No acute intracranial abnormality. Laboratory Results WBC 9.21 10^3/uL (3.29-11.43) 10/23/23 16:56 RBC 3.63 10^6/uL (3.85-5.65) L 10/23/23 16:56 Hgb 9.90 g/dL (11.27-16.99) L 10/23/23 16:56 Hct 33.1 % (36-47) L 10/23/23 16:56 MCV 91.2 fl (85-98) 10/23/23 16:56 MCH 27.3 pg (27-33) 10/23/23 16:56 MCHC 29.9 g/dL (30-55) L 10/23/23 16:56 RDW 16.2 % (12.1-15.1) H 10/23/23 16:56 Plt Count 196 10^3/cmm (157-399) 10/23/23 16:56 MPV 9.0 fL (7.4-10.4) 10/23/23 16:56 Neut % (Auto) 71.4 % 10/23/23 16:56 Lymph % (Auto) 14.7 % 10/23/23 16:56 Centre % (Auto) 9.3 % 10/23/23 16:56 Eos % (Auto) 3.0 % 10/23/23 16:56 Baso % (Auto) 0.8 % 10/23/23 16:56 Neut # (Auto) 6.58 10^3/uL (1.8-7.7) 10/23/23 16:56 Lymph # (Auto) 1.4 10^3/uL (0.8-4.8) 10/23/23 16:56 Centre # (Auto) 0.9 10^3/uL (0.2-0.9) 10/23/23 16:56 Eos # (Auto) 0.3 10^3/uL (0.0-0.8) 10/23/23 16:56 Baso # (Auto) 0.1 10^3/uL (0.0-0.1) 10/23/23 16:56 Nucleated RBC % (auto) 0 % 10/23/23 16:56 Nucleated RBCs # 0.0 /100WBC 10/23/23 16:56 PT 18.70 SECONDS (12.1-14.9) H 10/23/23 16:56 INR 1.51 (0.8-1.2) H 10/23/23 16:56 Sodium 139 mmol/L (136-145) 10/23/23 16:56 Potassium 4.2 mmol/L (3.5-5.1) 10/23/23 16:56 Chloride 97 mmol/L (98-107) L 10/23/23 16:56 Carbon Dioxide 34 mmol/L (22-29) H 10/23/23 16:56 Anion Gap 12.2 (5-19) 10/23/23 16:56 BUN 17 mg/dL (8-23) 10/23/23 16:56 Creatinine 1.0 mg/dL (0.5-0.9) H 10/23/23 16:56 GFR Calculation Not Reportable 10/23/23 16:56 Glucose 92 mg/dL (65-115) 10/23/23 16:56 Calculated Osmolality 289 mOsm/kg (285-295) 10/23/23 16:56 Calcium 9.5 mg/dL (8.5-10.5) 10/23/23 16:56 Total Bilirubin 0.2 mg/dL (0.15-1.2) 10/23/23 16:56 AST 21 U/L (0-32) 10/23/23 16:56 ALT 8 U/L (0-33) 10/23/23 16:56 Alkaline Phosphatase 131 U/L (35-105) H 10/23/23 16:56 Total Protein 7.2 g/dL (6.6-8.7) 10/23/23 16:56 Albumin 4.2 g/dL (3.5-5.2) 10/23/23 16:56 Globulin 3.0 g/dL (1.3-4.6) 11/25/23 16:56 All radiology interpretation(s) finalized by discharge Discharge Plan Discharge Patient Disposition: Home Clinical Impression: COPD (chronic obstructive pulmonary disease), Bruise of face, Fall Condition: Stable Prescriptions: No Action fluticasone propion-salmeterol [Advair Diskus] 500-50 mcg/dose blister with device 1 inh inhalation BID Qty: 60 3RF Spiriva Respimat 2.5 mcg/actuation mist 2 puff inhalation DAILY Qty: 4 3RF Daliresp 500 mcg tablet 500 mcg PO DAILY Qty: 90 3RF montelukast 4 mg tablet,chewable 8 mg PO DAILY Qty: 60 5RF baclofen 10 mg tablet 10 mg PO Q8H PRN (Reason: muscle spasm) Qty: 90 2RF lidocaine-prilocaine 2.5-2.5 % cream 1 applic topical DAILY PRN (Reason: pain) Qty: 50 3RF cholecalciferol (vitamin D3) 1,250 mcg (50,000 unit) capsule 50,000 unit PO .q7days Qty: 12 0RF Rx Instructions: Take one capsule one time a week for 12 weeks. bumetanide 1 mg tablet 1 mg PO .COMPLEX Qty: 60 5RF Rx Instructions: Take 1 mg tab by mouth two times a day. potassium chloride 20 mEq/15 mL liquid 10 meq PO BID Qty: 450 2RF magnesium oxide-Mg AA chelate 300 mg capsule 1 cap PO DAILY 90 Days Qty: 90 1RF cilostazol 50 mg tablet See Rx Instructions .ROUTE .COMPLEX Qty: 60 3RF Hold Instructions: Doctor's Order Dose Instruction: Take 1 tablet by mouth twice daily Rx Instructions: Take 1 tablet by mouth twice daily metoprolol tartrate 25 mg tablet 25 mg PO BID Qty: 60 5RF apixaban 5 mg tablet 5 mg PO BID Qty: 180 2RF calcitriol [Rocaltrol] 0.5 mcg capsule 0.5 mcg PO DAILY Qty: 90 3RF ipratropium-albuterol 0.5 mg-3 mg(2.5 mg base)/3 mL solution for nebulization 3 ml inhalation Q6H PRN (Reason: wheezing) Qty: 90 3RF albuterol sulfate [Ventolin HFA] 90 mcg/actuation HFA aerosol inhaler 2 puff INHALATION Q4H PRN (Reason: Shortness Of Breath) Qty: 18 4RF buprenorphine-naloxone [Suboxone] 8-2 mg Film 1 film SUBLINGUAL Q8H Hold Instructions: Resume on 08/08/23. Hold for one week. Rx Instructions: (rx filled 07/19/23 30d/s pt states not taken for months) diphenhydramine HCl [Benadryl] 25 mg Capsule 50 mg PO QAM lidocaine 5 % adhesive patch,medicated 1 - 3 patch transdermal DAILY Rx Instructions: on for 12 hours off for 12 hours atorvastatin 40 mg tablet 40 mg PO BEDTIME levothyroxine 75 mcg tablet See Rx Instructions .ROUTE .COMPLEX Rx Instructions: 75 mcg po WEDNESDAY THROUGH WEDNESDAY ONLY Nitrostat 0.4 mg Tablet, Sublingual 0.4 mg SUBLINGUAL Q5M PRN (Reason: Chest Pain) Rx Instructions: do not exceed 3 doses per episode budesonide 0.5 mg/2 mL suspension for nebulization 0.5 mg inhalation BID PRN (Reason: unknown) Theraworx See Rx Instructions .ROUTE .COMPLEX Rx Instructions: as needed Discharge Orders: Discharge ED (Routine); Ordered 10/23/23 Ordered By: Neena Weir Referrals: Fei Laura DO [Primary Care Provider] - Discharge Diet: Advance as tolerated Discharge Activity: Resume usual activity Patient Instructions: Stroke (DC), Pain Management Activity Restrictions/Additional Instructions: As discussed, you may have had a stroke. Leaving without further evaluation may lead to worsening level of function and may lead to stroke and . If you would like to return for further evaluation or if new symptoms cause you concern, please return to the emergency department. Please follow-up with your primary care doctor and substation inspector Coding Level of Care Code ED Transportation Manager for Delmer Ray
[2023-10-23 18:50] VITALS: BP 138/61; PULSE 71; RESP 15; O2SAT 90
== END 2023-10-23 19:02 | disposition home or self-care (01) ==
PROVIDERS: Emergency Medicine; Emergency Provider Nurse Practitioner; PCP Family Medicine
DX: S00.83XA Contusion of other part of head, initial encounter (principal); W18.39XA Other fall on same level, initial encounter; Z79.01 Long term (current) use of anticoagulants; J44.9 Chronic obstructive pulmonary disease, unspecified; F17.210 Nicotine dependence, cigarettes, uncomplicated; Z95.0 Presence of cardiac pacemaker; I25.10 Atherosclerotic heart disease of native coronary artery without angina pectoris; Z86.73 Personal history of transient ischemic attack (TIA), and cerebral infarction without residual deficits; E78.5 Hyperlipidemia, unspecified; Z85.118 Personal history of other malignant neoplasm of bronchus and lung; Z85.850 Personal history of malignant neoplasm of thyroid; I10 Essential (primary) hypertension
CPT/HCPCS: 70450; 80053; 85025; 85610; 99284

== ENCOUNTER 2023-10-27 15:30 | Oncology outpatient (recurring) (ONCR) | payer MEDICAID, SELFPAY | END 2023-10-28 23:59 | disposition home or self-care (01) | PROVIDERS: PCP Family Medicine; Visit Provider Internal Medicine Medical Oncology | DX: Z53.9 Procedure and treatment not carried out, unspecified reason | CPT/HCPCS: 93005; 96523; 99213 ==

== ENCOUNTER → 2023-10-28 12:52 | Outpatient (BNVA) | payer MEDICAID, SELFPAY | PROVIDERS: PCP Family Medicine; Visit Provider Nurse Practitioner Family | DX: I48.0 Paroxysmal atrial fibrillation (principal); Z79.01 Long term (current) use of anticoagulants | CPT/HCPCS: 99213 ==

== ENCOUNTER → 2023-11-03 16:42 | Outpatient (BNVA) | payer MEDICAID, SELFPAY | PROVIDERS: PCP Family Medicine; Visit Provider Internal Medicine Cardiovascular Disease | DX: Z45.010 Encounter for checking and testing of cardiac pacemaker pulse generator [battery] (principal) | CPT/HCPCS: 93296 ==

== ENCOUNTER 2023-11-05 11:35 | Emergency (ER) | payer MEDICAID, SELFPAY ==
[2023-11-05 11:39] VITALS: BP 174/71; PULSE 115; RESP 18; TEMP 36.7; O2SAT 98; BMI 17.6
--- NOTE | 2023-11-05 11:46 | XR_ITS ---
WS: [id number] Portable AP upright chest, 11/05/2023 Clinical Data: sob Comparison: Portable chest, 07/26/2023 Findings: No nodules, masses or effusions are seen. The heart is normal. The pulmonary vascularity is not increased. No pneumonia or pneumothorax is seen. The aortic arch and descending thoracic aorta s how calcification and tortuosity. The diaphragms are flattened. There is a permanent cardiac pacemake r and right infusion port unchanged. There is a stimulator device overlying the thoracic spine. There are cholecystectomy clips in the right upper quadrant. There are monitor leads on the chest wall. Impression: Atherosclerosis and hyperinflation.
--- NOTE | 2023-11-05 11:46 | CT_ITS ---
WS: [id number] CT HEAD NONCONTRAST HISTORY: ams TECHNIQUE: Contiguous axial imaging performed through the brain in 2.5 mm imaging. Bone and soft tiss ue windows. Sagittal and coronal reformats reviewed. All CT scans at [facility] use at least one of these dose optimization techniques: automated exposure control; mA and/or kV adjustment per pa tient size (includes targeted exams where dose is matched to clinical indication); or iterative recon struction. DLP: 789.88 mGy.cm COMPARISON: 10/23/2023 No acute intracranial hemorrhage, midline shift or mass effect. Mild diffuse atrophy and small vessel ischemic disease. No acute infarct or sulcal effacement. Ventricles: Normal size with no hydrocephalus. No inferior displacement the cerebellar tonsils. Paranasal sinuses: As visualized are clear. Mastoid air cells: Well pneumatized. Calvarium and scalp: Skull is intact with no soft tissue edema or swelling. IMPRESSION: Stable noncontrast head CT. Mild small vessel ischemic disease and atrophy. No acute intracranial hem orrhage or edema.
--- NOTE | 2023-11-05 11:47 | ECG_ITS ---
[facility] Test Date: 2023-11-05 Pat Name: Sakina Lombardi Department: Room: Gender: Female Mental Retardation Nurse: : 1950 Requested By: Ramiro Shankar Order Number: [id number] Barney MD: Chante Salmon M.D. Measurements Intervals [place] Rate: 109 P: 77 OK: 141 QRS: 43 QRSD: 85 T: 60 QT: 287 QTc: 386 Interpretive Statements Multifocal atrial tachycardia S NONSPECIFIC T-WAVE ABNORMALITY ABNORMAL RHYTHM ECG Compared to ECG 10/07/2023 15:07:36 T-wave abnormality now present Atrial fibrillation no longer present Electronically Signed On 11-05-2023 16:08:21 ECHO TECHNICIAN by Chante Salmon M.D. [id number]
--- NOTE | 2023-11-05 11:48 | ED_ITS ---
HPI - Altered Mental Status 2 General: Chief Complaint: Altered Mental Status Stated Complaint: ams Time Seen by Provider: 11/05/23 11:44 Source: patient and EMS Mode of arrival: EMS Limitations: no limitations History of Present Illness: 73-year-old female who states that she f elt like she just lost a day yesterday does not really remember anything that happened yesterday and is felt slightly foggy today. Patient here is awake alert answering all my questions appropriately she has a history of A-fib along with COPD she states that she does not believe that she took any of her meds yesterday she is slightly tachycardic here. She denies any fever she denies any acute pain she states she has chronic back pain. Denies headache. Review of Systems 2 Const: Denies: fever(s), chills, body aches or change in appetite ENMT: Denies: throat pain or dental pain Card: Denies: chest pain Resp: Denies: dyspnea GI: Denies: abdominal pain, nausea, vomiting or diarrhea Musc: Reports: back pain; Denies: neck pain Skin/Breast: Denies: rash Neuro: Reports: confusion; Denies: headache(s) PFSH ED 2 PFSH: Medical History Left shoulder pain Avulsion fracture of left talus Skin tear of right upper arm without complication Orthopnea Sinus node dysfunction Sinus pause Bradycardia Orthostatic hypotension Hypovitaminosis D Seizure-like activity Syncopal episodes Nicotine dependence, cigarettes, with unspecified nicotine-induced disorders Sacral decubitus ulcer Chronic rhinosinusitis Infected epidermoid cyst Fall Lump of right breast Cor pulmonale Cor pulmonale Leg pain, left Lung cancer Acute exacerbation of chronic obstructive pulmonary disease Nicotine addiction Chronic respiratory failure with hypoxia Lung nodule Aortic cusp regurgitation Skin lesions Actinic keratosis due to exposure to sunlight Closed intertrochanteric fracture of right hip Smoking addiction Chronic pain Thyroid cancer SOB (shortness of breath) Dyslipidemia (high LDL; low HDL) History of COPD CVA (cerebral vascular accident) Benign essential hypertension CAD (coronary artery disease) Hx of carotid stenosis Leg pain, medial Neck strain COPD (chronic obstructive pulmonary disease) Plantar porokeratosis, acquired Surgical History Status post cardiac pacemaker procedure History of bronchoscopy History of hip surgery Hx of hysterectomy History of bilateral carpal tunnel release History of lumpectomy History of rectal surgery History of ankle surgery Status post open reduction and internal fixation (ORIF) of fracture H/O thyroidectomy S/P hardware removal Spine History of back surgery Port-A-Cath in place Family History Brother Leukemia Diabetes Lung disease Mother Anesthesia complication CAD (coronary artery disease) Father Bleeding disorder Clotting disorder CAD (coronary artery disease) Cancer Stroke Sister CAD (coronary artery disease) Chronic kidney disease (CKD) Lung disease Family/Other Diabetes Stroke Grandfather Suicide Denies family history of Dementia Social History Smoking and tobacco/nicotine status: current every day tobacco/nicotine user cigarettes Packs smoked per day: 0.5 Years cigarettes smoked: 55 [ Other cigarette details: Hx of 2 PPD x 50 Years, started at age 12] Quit status (tobacco/nicotine): considering quitting Second hand smoke exposure: Yes Alcohol intake: never Substance/Drug Use: never Adopted: No Lives independently: Yes Household members: none Housing: Apartment Marital status: / Current occupational status: disabled Do you think of yourself as: Straight/Heterosexual Current gender identity: Female Physical Exam 2 Const: COMMON NORMALS: patient oriented x3 HENMT: COMMON NORMALS: normocephalic and atraumatic HEAD & SCALP: n ormocephalic and atraumatic Eye: COMMON NORMALS: Equal, round and reactive pupils present and EOMs intact bilaterally PUPIL: Yes Equal, round and reactive pupils present Neck/C-Spine: COMMON NORMALS: full ROM and supple Chest: COMMONS NORMALS: normal inspection of the chest and normal palpation of entire chest wall Resp: COMMON NORMALS: normal respiratory effort, No retractions, No use of accessory muscles and clear to auscultation bilaterally AUSCULTATION: clear to auscultation bilaterally Cardio: COMMON NORMALS: No murmurs present (Cardio) RATE: tachycardic R HYTHM: abnormal rhythm irregularly irregular GI: COMMON NORMALS: Normal to inspection, nondistended, normoactive bowel sounds present, Soft to palpation, non-tender and no masses PALPATION: Yes Soft to palpation Extremity: COMMON NORMALS: normal to inspection and full ROM Neuro: COMMON NORMALS: patient oriented x3, moves all extremities and no focal motor deficits Psych: COMMON NORMALS: mental status grossly normal, Normal thought process present and cooperative THOUGHT PROCESS: Normal thought process present Skin: COMMON NORMALS: no rashes or lesions noted and no wounds GENERAL SKIN EXAM: no rashes or lesions noted Course 2 Vital Signs: Vital signs: Vital Signs Temperature 98.1 F 11/05/23 11:39 Pulse Rate 95 11/05/23 12:11 Respiratory Rate 15 11/05/23 12:11 Blood Pressure 120/56 11/05/23 12:11 Pulse Oximetry 96 11/05/23 12:11 Oxygen Delivery Me thod Nasal Cannula 11/05/23 12:11 Oxygen Flow Rate 3 11/05/23 12:11 MDM - Altered Mental Status Medical Decision Making Patient presents here with confusion that since resolved she is well-appearing here answering my questions appropriately workup here is normal she is stable for discharge follow-up PCP and return if worsening. Medical Records I reviewed the patient's medical records. Lab Data I reviewed the patient's lab results. 11/05/23 11:52 11/05/23 11:52 Laboratory Results WBC 10.19 10^3/uL (3.29-11.43) 11/05/23 11:52 RBC 3.48 10^6/uL (3.85-5.65) L 11/05/23 11:52 Hgb 9.50 g/dL (11.27-16.99) L 11/05/23 11:52 Hct 31.1 % (36-47) L 11/05/23 11:52 MCV 89.4 fl (85-98) 11/05/23 11:52 MCH 27.3 pg (27-33) 11/05/23 11:52 MCHC 30.5 g/dL (30-55) 11/05/23 11:52 RDW 16.8 % (12.1-15.1) H 11/05/23 11:52 Plt Count 178 10^3/cmm (157-399) 11/05/23 11:52 MPV 9.9 fL (7.4-10.4) 11/05/23 11:52 Neut % (Auto) 85.4 % 11/05/23 11:52 Lymph % (Auto) 6.1 % 11/05/23 11:52 [place] % (Auto) 7.6 % 11/05/23 11:52 Eos % (Auto) 0.1 % 11/05/23 11:52 Baso % (Auto) 0.2 % 11/05/23 11:52 Neut # (Auto) 8.71 10^3/uL (1.8-7.7) H 11/05/23 11:52 Lymph # (Auto) 0.6 10^3/uL (0.8-4.8) L 11/05/23 11:52 [place] # (Auto) 0.8 10^3/uL (0.2-0.9) 11/05/23 11:52 Eos # (Auto) 0.0 10^3/uL (0.0-0.8) 11/05/23 11:52 Baso # (Auto) 0.0 10^3/uL (0.0-0.1) 11/05/23 11:52 Nucleated RBC % (auto) 0 % 11/05/23 11:52 Nucleated RBCs # 0.0 /100WBC 11/05/23 11:52 PT 19.80 SECONDS (12.1-14.9) H 11/05/23 11:52 INR 1.62 (0.8-1.2) H 11/05/23 11:52 Specimen Type Arterial 11/05/23 12:08 Sample Site Radial, right 11/05/23 12:08 ABG pH 7.43 (7.35-7.45) 11/05/23 12:08 ABG pCO2 52.1 mmHg (35-45) H 11/05/23 12:08 ABG pO2 85.3 mmHg (80.0-100.0) 11/05/23 12:08 ABG PO2/FiO2 Ratio 0 11/05/23 12:08 ABG HCO3 34.3 mmol/L (22-26) H 11/05/23 12:08 ABG Base Excess 8.7 mmol/L (-2.0-2.0) H 11/05/23 12:08 Ankush Test Pos 11/05/23 12:08 Hematocrit 30.4 % (37-47) L 11/05/23 12:08 O2 Delivery Device Nc 11/05/23 12:08 O2 Liters/Min 3.0 % 11/05/23 12:08 FiO2 32.0 % 11/05/23 12:08 Engraver Machine ID Gd 11/05/23 12:08 Sodium 139 mmol/L (136-145) 11/05/23 11:52 Potassium 3.5 mmol/L (3.5-5.1) 11/05/23 11:52 Chloride 97 mmol/L (98-107) L 11/05/23 11:52 Carbon Dioxide 32 mmol/L (22-29) H 11/05/23 11:52 Anion Gap 13.5 (5-19) 11/05/23 11:52 BUN 20 mg/dL (8-23) 11/05/23 11:52 Creatinine 1.2 mg/dL (0.5-0.9) H 11/05/23 11:52 GFR Calculation Not Reportable 11/05/23 11:52 Glucose 163 mg/dL (65-115) H 11/05/23 11:52 Calculated Osmolality 294 mOsm/kg (285-295) 11/05/23 11:52 Calcium 9.5 mg/dL (8.5-10.5) 11/05/23 11:52 Total Bilirubin 0.4 mg/dL (0.15-1.2) 11/05/23 11:52 AST 23 U/L (0-32) 11/05/23 11:52 ALT 9 U/L (0-33) 11/05/23 11:52 Alkaline Phosphatase 125 U/L (35-105) H 11/05/23 11:52 NT-Pro-B Natriuret Pep 2980 pg/mL (0-125) H 11/05/23 11:52 Total Protein 7.2 g/dL (6.6-8.7) 11/05/23 11:52 Albumin 4.1 g/dL (3.5-5.2) 11/05/23 11:52 Globulin 3.1 g/dL (1.3-4.6) 11/05/23 11:52 All radiology interpretation(s) finalized by discharge EKG Data EKG 1: I personally reviewed and interpreted this EKG as follows: EKG interpretation date: 11/05/23 EKG interpretation time: 11:54 Interpretation: sinus tach hr [address] or t wave abnormalities qrs 85 qtc 351 Discharge Plan Discharge Patient Disposition: Home Clinical Impression: Confusion, Atrial fibrillation Condition: Stable Prescriptions: No Action fluticasone propion-salmeterol [Advair Diskus] 500-50 mcg/dose blister with device 1 inh inhalation BID Qty: 60 3RF Spiriva Respimat 2.5 mcg/actuation mist 2 puff inhalation DAILY Qty: 4 3RF montelukast 4 mg tablet,chewable 8 mg PO DAILY Qty: 60 5RF baclofen 10 mg tablet 10 mg PO Q8H PRN (Reason: muscle spasm) Qty: 90 2RF lidocaine-prilocaine 2.5-2.5 % cream 1 applic topical DAILY PRN (Reason: pain) Qty: 50 3RF cholecalciferol (vitamin D3) 1,250 mcg (50,000 unit) capsule 50,000 unit PO .q7days Qty: 12 0RF Rx Instructions: on Tuesdays potassium chloride 20 mEq/15 mL liquid 10 meq PO BID Qty: 450 2RF magnesium oxide-Mg AA chelate 300 mg capsule 1 cap PO DAILY 90 Days Qty: 90 1RF metoprolol tartrate 25 mg tablet 25 mg PO BID Qty: 60 5RF apixaban 5 mg tablet 5 mg PO BID Qty: 180 2RF amiodarone 200 mg tablet 200 mg PO DAILY Qty: 30 1RF Rx Instructions: start on Nov 04 calcitriol [Rocaltrol] 0.5 mcg capsule 0.5 mcg PO DAILY Qty: 90 3RF albuterol sulfate [Ventolin HFA] 90 mcg/actuation HFA aerosol inhaler 2 puff INHALATION Q4H PRN (Reason: Shortness Of Breath) Qty: 18 4RF buprenorphine-naloxone [Suboxone] 8-2 mg Film 1 film SUBLINGUAL Q8H Hold Instructions: Resume on 08/08/23. Hold for one week. diphenhydramine HCl [Benadryl] 25 mg Capsule 50 mg PO QAM cilostazol 50 mg tablet 50 mg PO BID bumetanide 1 mg tablet 1 mg PO BID lidocaine 5 % adhesive patch,medicated 1 - 3 patch transdermal DAILY Rx Instructions: on for 12 hours off for 12 hours atorvastatin 40 mg tablet 40 mg PO BEDTIME levothyroxine 75 mcg tablet See Rx Instructions .ROUTE .COMPLEX Rx Instructions: 75 mcg po WEDNESDAY THROUGH WEDNESDAY ONLY nitroglycerin [Nitrostat] 0.4 mg Tablet, Sublingual 0.4 mg SUBLINGUAL Q5M PRN (Reason: Chest Pain) Rx Instructions: do not exceed 3 doses per episode budesonide 0.5 mg/2 mL suspension for nebulization 0.5 mg inhalation BID PRN (Reason: unknown) Theraworx See Rx Instructions .ROUTE .COMPLEX Rx Instructions: Apply to affected area as needed per instructions on bottle. 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
[2023-11-05] MEDS: dilTIAZem 5 mg/mL SDV 5 mL 15 MG IVP (12:08)
[2023-11-05 12:11] VITALS: BP 120/56; PULSE 95; RESP 15; O2SAT 96
[2023-11-05 12:12] LABS: Basophils % 0.2 %; Eosinophils % 0.1 %; Hematocrit 31.1 % (36-47); Lymphocytes # 0.6 10^3/uL (0.8-4.8); Lymphocytes % 6.1 %; Mean Corpuscular HGB Conc 30.5 g/dL (30-55); Mean Corpuscular Hemoglobin 27.3 pg (27-33); Mean Corpuscular Volume 89.4 fl (85-98); Mean Platelet Volume 9.9 fL (7.4-10.4); Monocytes # 0.8 10^3/uL (0.2-0.9); Monocytes % 7.6 %; Neutrophils # 8.71 10^3/uL (1.8-7.7); Neutrophils % 85.4 %; Nucleated Red Blood Cells % 0 %; Platelet Count 178 10^3/cmm (157-399); Red Blood Count 3.48 10^6/uL (3.85-5.65); Red Cell Distribution Width 16.8 % (12.1-15.1); White Blood Count 10.19 10^3/uL (3.29-11.43)
[2023-11-05 12:22] LABS: INR 1.62 (0.8-1.2)
[2023-11-05 12:26] LABS: ABG PCO2 52.1 mmHg (35-45); ABG PH Result 7.43 (7.35-7.45); Arterial Blood Gas Hematocrit 30.4 % (37-47); Base Excess ABG 8.7 mmol/L (-2.0-2.0); Blood Gas Allen Test Pos; Blood Gas Operator Identificat GD; Blood Gas Sample Site Radial, right; Blood Gas Sample Type Arterial; HCO3 ABG 34.3 mmol/L (22-26); Oxygen Device NC; PO2 ABG 85.3 mmHg (80.0-100.0); PO2 FiO2 Ratio Arterial Blood 0
[2023-11-05 12:43] LABS: Alanine Aminotransferase 9 U/L (0-33); Albumin Level 4.1 g/dL (3.5-5.2); Alkaline Phosphatase 125 U/L (35-105); Anion Gap 13.5 (5-19); Aspartate Amino Transferase 23 U/L (0-32); Blood Urea Nitrogen 20 mg/dL (8-23); Calcium 9.5 mg/dL (8.5-10.5); Carbon Dioxide 32 mmol/L (22-29); Chloride 97 mmol/L (98-107); Globulin 3.1 g/dL (1.3-4.6); Glucose 163 mg/dL (65-115); NT Pro B Type Natriuretic Pept 2980 pg/mL (0-125); Osmolality Calculated 294 mOsm/kg (285-295); Potassium 3.5 mmol/L (3.5-5.1); Sodium 139 mmol/L (136-145); Total Bilirubin 0.4 mg/dL (0.15-1.2); Total Protein 7.2 g/dL (6.6-8.7)
== END 2023-11-05 15:01 | disposition home or self-care (01) ==
PROVIDERS: Emergency Provider Emergency Medicine; PCP Family Medicine
DX: R41.0 Disorientation, unspecified (principal); I48.91 Unspecified atrial fibrillation; Z79.01 Long term (current) use of anticoagulants; R00.0 Tachycardia, unspecified
CPT/HCPCS: 36600; 70450; 71045; 80053; 82803; 83880; 85025; 85610; 93005; 96374; 99285; J3490

== ENCOUNTER 2023-11-08 05:17 | Observation (INO) | payer MEDICAID, SELFPAY ==
[2023-11-08] VITALS (114 sets, daily range): BP systolic 105–174; BP diastolic 48–92; PULSE 78–171; RESP 11–39; TEMP 36.4–36.9; O2SAT 78–100; BMI 17.2
--- NOTE | 2023-11-08 05:34 | XRR_ITS ---
PROCEDURE INFORMATION: Exam: XR Chest Exam date and time: 11/08/2023 5:41 AM Age: 73 years old Clinical indication: Shortness of breath; Chest pressure; Prior surgery; Surgery date: 6+ months; Surgery type: Thyroid. Port. Pacer. Stimulator. Patient HX: C/O chest pain with SOB. History of lung cancer. ; Additional info: Cp TECHNIQUE: Imaging protocol: Radiologic exam of the chest. Views: 1 view. COMPARISON: CR XR chest 1V portable [id number] 11/05/2023 11:51 AM FINDINGS: Tubes, catheters and devices: Chemotherapy infusion device enters from the right and terminates in the right atrium. Lungs: Emphysematous COPD with mild interstitial prominence. Mild diffuse interstitial prominence. Pleural spaces: Unremarkable. No pleural effusion. No pneumothorax. Heart/Mediastinum: Unremarkable. No cardiomegaly. Bones/joints: What are probably midthoracic stimulator electrodes are unchanged. Organs: Cholecystectomy. XR/XR chest 1V portable [id number] IMPRESSION: No acute cardiopulmonary disease.
--- NOTE | 2023-11-08 05:34 | ECG_ITS ---
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 Measurements Intervals [place] Rate: 93 P: -22 [place]: 140 QRS: 11 QRSD: 86 T: 3 QT: 293 QTc: 365 Interpretive Statements SINUS RHYTHM WITH OCCASIONAL SUPRAVENTRICULAR PREMATURE COMPLEXES SEPTAL MYOCARDIAL INFARCTION , OF INDETERMINATE AGE [40+ ms Q WAVE IN V1/V2] Compared to ECG 11/05/2023 11:54:58 Myocardial infarct finding now present Ectopic atrial tachycardia, multifocal no longer present T-wave abnormality no longer present Electronically Signed On 11-08-2023 15:55:00 WELLNESS NURSE by Tico Yuen M.D. [email or web address]
--- NOTE | 2023-11-08 06:05 | ED_ITS ---
Documented by User: Dev Machado Angel, 11/09/23 19:33 HPI - Chest Pain 2 General: Chief Complaint: ER Hold Stated Complaint: Chest pain Time Seen by Provider: 11/08/23 05:30 History of Present Illness: 73-year-old female with a history of emp hysema. She also has a history of atrial fibrillation, with pacemaker placement in April. She presents with chest discomfort. She was awake this morning, and began to have left-sided chest discomfort that radiated into her back and vice versa. She notes that it felt like electricity, but also throb. She was short of breath with the pain. She took nitroglycerin at home and was given nitroglycerin by EMS as well as aspirin. Pain is essentially resolved at this point. No increased lower extremity swelling. No increased cough or fever. She does have a chronic cough with chronic sputum production. She notes that she had a syncopal episode a couple of days ago. Associated symptoms: Deny abdominal pain, fever(s), nausea, palpitations or vomiting Review of Systems 2 Const: Denies: fever(s), chills or body aches Eyes: Denies: change in vision Card: Denies: palpitations Resp: Denies: non-productive cough or wheezing GI: Denies: abdominal pain, nausea, vomiting, diarrhea or hematochezia : Denies: difficulty voiding Skin/Breast: Denies: rash Neuro: Reports: dizziness; Denies: headache(s), weakness in extremities or confusion PFSH ED 2 PFSH: Medical History Left shoulder pain Avulsion fracture of left talus Skin tear of right upper arm without complication Orthopnea Sinus node dysfunction Sinus pause Bradycardia Orthostatic hypotension Hypovitaminosis D Seizure-like activity Syncopal episodes Nicotine dependence, cigarettes, with unspecified nicotine-induced disorders Sacral decubitus ulcer Chronic rhinosinusitis Infected epidermoid cyst Fall Lump of right breast Cor pulmonale Cor pulmonale Leg pain, left Lung cancer Acute exacerbation of chronic obstructive pulmonary disease Nicotine addiction Chronic respiratory failure with hypoxia Lung nodule Aortic cusp regurgitation Skin lesions Actinic keratosis due to exposure to sunlight Closed intertrochanteric fracture of right hip Smoking addiction Chronic pain Thyroid cancer SOB (shortness of breath) Dyslipidemia (high LDL; low HDL) History of COPD CVA (cerebral vascular accident) Benign essential hypertension CAD (coronary artery disease) Hx of carotid stenosis Leg pain, medial Neck strain COPD (chronic obstructive pulmonary disease) Plantar porokeratosis, acquired Surgical History Status post cardiac pacemaker procedure History of bronchoscopy History of hip surgery Hx of hysterectomy History of bilateral carpal tunnel release History of lumpectomy History of rectal surgery History of ankle surgery Status post open reduction and internal fixation (ORIF) of fracture H/O thyroidectomy S/P hardware removal Spine History of back surgery Port-A-Cath in place Family History Brother Leukemia Diabetes Lung disease Mother Anesthesia complication CAD (coronary artery disease) Father Bleeding disorder Clotting disorder CAD (coronary artery disease) Cancer Stroke Sister CAD (coronary artery disease) Chronic kidney disease (CKD) Lung disease Family/Other Diabetes Stroke Grandfather Suicide Denies family history of Dementia Social History Smoking and tobacco/nicotine status: current every day tobacco/nicotine user cigarettes Packs smoked per day: 0.5 Years cigarettes smoked: 55 [ Other cigarette details: Hx of 2 PPD x 50 Years, started at age 12] Quit status (tobacco/nicotine): considering quitting Second hand smoke exposure: Yes Alcohol intake: never Substance/Drug Use: current Other substance/drug use details: Couple of months ago Gummies Adopted: No Lives independently: Yes Household members: none Housing: Apartment Marital status: / Current occupational status: disabled Do you think of yourself as: Straight/Heterosexual Current gender identity: Female Physical Exam 2 Const: COMMON NORMALS: no acute distress GENERAL APPEARANCE: cooperative; not ill appearing and not frail appearing HENMT: COMMON NORMALS: normocephalic, atraumatic and Normal external nose present HEAD & SCALP: normocephalic and atraumatic FACE & SINUS: normal facial exam and face symmetric NOSE: Normal external nose present Eye: COMMON NORMALS: Equal, round and reactive pupils present and EOMs intact bilaterally PUPIL: Yes Equal, round and reactive pupils present Neck/C-Spine: GENERAL: Yes trachea midline Chest: CHEST: Yes Symmetrical chest wall rise Resp: COMMON NORMALS: normal respiratory effort, No retractions and No use of accessory muscles AUSCULTATION: wheezes (Faint bilateral) Cardio: COMMON NORMALS: regular rate and regular rhythm RATE: regular rate RHYTHM: regular rhythm GI: COMMON NORMALS: Normal to inspection, nondistended, normoactive bowel sounds present Extremity: COMMON NORMALS: no pedal edema Neuro: SUJATA COMA SCALE: document GCS findings Tye coma scale eye opening: Spontaneous Tye coma scale verbal response: Orientated Sujata coma scale motor response: Obey commands Sujata coma scale total score: 15 S ENSORY EXAM: Yes extremities (intact) Psych: COMMON NORMALS: speech normal SPEECH: Yes normal speech Skin: COMMON NORMALS: no rashes or lesions noted GENERAL SKIN EXAM: no rashes or lesions noted Course 2 Vital Signs: Vital signs: Vital Signs Temperature 97.8 F 11/09/23 08:00 Pulse Rate 85 11/09/23 10:26 Respiratory Rate 17 11/09/23 10:26 Blood Pressure 179/82 11/09/23 10:26 Pulse Oximetry 90 11/09/23 10:26 Oxygen Delivery Me thod Nasal Cannula 11/09/23 08:00 Oxygen Flow Rate 3 11/09/23 01:50 MDM - Chest Pain Medical Decision Making Resolved chest discomfort in a 73-year-old female. She has a loose history of ED of syncope a couple of days ago. She is anticoagulated. Her EKG showed a sinus rhythm with occasional PVCs. Rate is 90. Rector is normal. Intervals are normal. No acute ST wave changes. Laboratory is pending. Lab Data 11/09/23 03:34 11/09/23 03:34 Radiology Impressions Chest X-Ray 11/08/23 05:34 IMPRESSION: No acute cardiopulmonary disease. Abdomen/Pelvis CT 11/08/23 06:33 IMPRESSION: No acute subdiaphragmatic pathology. Laboratory Results WBC 10.46 10^3/uL (3.29-11.43) 11/08/23 06:04 RBC 3.55 10^6/uL (3.85-5.65) L 11/08/23 06:04 Hgb 9.80 g/dL (11.27-16.99) L 11/08/23 06:04 Hct 32.0 % (36-47) L 11/08/23 06:04 MCV 90.1 fl (85-98) 11/08/23 06:04 MCH 27.6 pg (27-33) 11/08/23 06:04 MCHC 30.6 g/dL (30-55) 11/08/23 06:04 RDW 16.6 % (12.1-15.1) H 11/08/23 06:04 Plt Count 220 10^3/cmm (157-399) 11/08/23 06:04 MPV 9.5 fL (7.4-10.4) 11/08/23 06:04 Neut % (Auto) 72.7 % 11/08/23 06:04 Lymph % (Auto) 13.4 % 11/08/23 06:04 Gooding % (Auto) 10.1 % 11/08/23 06:04 Eos % (Auto) 2.6 % 11/08/23 06:04 Baso % (Auto) 0.6 % 11/08/23 06:04 Neut # (Auto) 7.61 10^3/uL (1.8-7.7) 11/08/23 06:04 Lymph # (Auto) 1.4 10^3/uL (0.8-4.8) 11/08/23 06:04 Gooding # (Auto) 1.1 10^3/uL (0.2-0.9) H 11/08/23 06:04 Eos # (Auto) 0.3 10^3/uL (0.0-0.8) 11/08/23 06:04 Baso # (Auto) 0.1 10^3/uL (0.0-0.1) 11/08/23 06:04 Nucleated RBC % (auto) 0 % 11/08/23 06:04 Nucleated RBCs # 0.0 /100WBC 11/08/23 06:04 PT 20.50 SECONDS (12.1-14.9) H 11/08/23 06:04 INR 1.70 (0.8-1.2) H 11/08/23 06:04 APTT 40.9 SECONDS (23.9-36.7) H 11/08/23 06:04 Sodium 137 mmol/L (136-145) 11/08/23 06:04 Potassium 3.7 mmol/L (3.5-5.1) 11/08/23 06:04 Chloride 92 mmol/L (98-107) L 11/08/23 06:04 Carbon Dioxide 37 mmol/L (22-29) H 11/08/23 06:04 Anion Gap 11.7 (5-19) 11/08/23 06:04 BUN 14 mg/dL (8-23) 11/08/23 06:04 Creatinine 1.1 mg/dL (0.5-0.9) H 11/08/23 06:04 GFR Calculation Not Reportable 11/08/23 06:04 Glucose 108 mg/dL (65-115) 11/08/23 06:04 Calculated Osmolality 285 mOsm/kg (285-295) 11/08/23 06:04 Calcium 9.1 mg/dL (8.5-10.5) 11/08/23 06:04 Magnesium 1.9 mg/dL (1.7-2.3) 11/08/23 07:54 Iron 33 ug/dL (37-145) L 11/08/23 06:04 TIBC 310 mcg/dl 11/08/23 06:04 % Saturation 10.6 % (20-50) L 11/08/23 06:04 Unsat Iron Binding 277 ug/dL (112-347) 11/08/23 06:04 Ferritin 31 ng/mL (15-150) 11/08/23 06:04 Total Bilirubin 0.3 mg/dL (0.15-1.2) 11/08/23 06:04 AST 21 U/L (0-32) 11/08/23 06:04 ALT 10 U/L (0-33) 11/08/23 06:04 Alkaline Phosphatase 120 U/L (35-105) H 11/08/23 06:04 Creatine Kinase 52 U/L (26-192) 11/08/23 06:04 Troponin T Baseline 37 ng/L (0-10) H 11/08/23 06:04 Troponin T 120 Minute 41.93 ng/L (0-10) H 11/08/23 07:54 Delta Troponin T 4.93 ABS# (0-10) 11/08/23 07:54 NT-Pro-B Natriuret Pep 834 pg/mL (0-125) H 11/08/23 06:04 Total Protein 6.7 g/dL (6.6-8.7) 11/08/23 06:04 Albumin 4.2 g/dL (3.5-5.2) 11/08/23 06:04 Globulin 2.5 g/dL (1.3-4.6) 11/08/23 06:04 Lipase 11 U/L (13-60) L 11/08/23 06:04 Vitamin B12 311 pg/mL (232-1245) 11/08/23 06:04 Folate 9.2 ng/mL (4.8-37.3) 11/08/23 06:04 TSH 7.91 uIU/mL (0.27-4.20) H 11/08/23 07:54 Discharge Plan Discharge Patient Disposition: Admitted As Inpatient Admit Provider: Rony Pope Clinical Impression: Unstable angina, Syncope Atrial fibrillation Qualifiers: Atrial fibrillation type: persistent (not longstanding) Qualified Code(s): I 48.19 - Other persistent atrial fibrillation Condition: Stable Discharge Diet: Cardiac Discharge Activity: Increase activity as tolerated Sign Out Sign Out Data: Patient Sign Out occurred on 11/08/23 at 06:31. Patient's care was discussed, and care was transferred from Dev Ortiz DO to Bala Zapata DO. Coding Level of Care Code ED Research Geneticist for Chg Fwd Documented by User: Bala Zapata DO 11/08/23 14:58 HPI - Chest Pain 2 General: Chief Complaint: ER Hold Stated Complaint: Chest pain Time Seen by Provider: 11/08/23 05:30 Source: patient [facility] [place] ED 2 PFSH: Medical History Left shoulder pain Avulsion fracture of left talus Skin tear of right upper arm without complication Orthopnea Sinus node dysfunction Sinus pause Bradycardia Orthostatic hypotension Hypovitaminosis D Seizure-like activity Syncopal episodes Nicotine dependence, cigarettes, with unspecified nicotine-induced disorders Sacral decubitus ulcer Chronic rhinosinusitis Infected epidermoid cyst Fall Lump of right breast Cor pulmonale Cor pulmonale Leg pain, left Lung cancer Acute exacerbation of chronic obstructive pulmonary disease Nicotine addiction Chronic respiratory failure with hypoxia Lung nodule Aortic cusp regurgitation Skin lesions Actinic keratosis due to exposure to sunlight Closed intertrochanteric fracture of right hip Smoking addiction Chronic pain Thyroid cancer SOB (shortness of breath) Dyslipidemia (high LDL; low HDL) History of COPD CVA (cerebral vascular accident) Benign essential hypertension CAD (coronary artery disease) Hx of carotid stenosis Leg pain, medial Neck strain COPD (chronic obstructive pulmonary disease) Plantar porokeratosis, acquired Surgical History Status post cardiac pacemaker procedure History of bronchoscopy History of hip surgery Hx of hysterectomy History of bilateral carpal tunnel release History of lumpectomy History of rectal surgery History of ankle surgery Status post open reduction and internal fixation (ORIF) of fracture H/O thyroidectomy S/P hardware removal Spine History of back surgery Port-A-Cath in place Family History Brother Leukemia Diabetes Lung disease Mother Anesthesia complication CAD (coronary artery disease) Father Bleeding disorder Clotting disorder CAD (coronary artery disease) Cancer Stroke Sister CAD (coronary artery disease) Chronic kidney disease (CKD) Lung disease Family/Other Diabetes Stroke Grandfather Suicide Denies family history of Dementia Social History Smoking and tobacco/nicotine status: current every day tobacco/nicotine user cigarettes Packs smoked per day: 0.5 Years cigarettes smoked: 55 [ Other cigarette details: Hx of 2 PPD x 50 Years, started at age 12] Quit status (tobacco/nicotine): considering quitting Second hand smoke exposure: Yes Alcohol intake: never Substance/Drug Use: current Other substance/drug use details: Couple of months ago Gummies Adopted: No Lives independently: Yes Household members: none Housing: Apartment Marital status: / Current occupational status: disabled Do you think of yourself as: Straight/Heterosexual Current gender identity: Female Physical Exam 2 Neuro: SUJATA COMA SCALE: document GCS findings Sujata coma scale total score: 15 Course 2 Vital Signs: Vital signs: Vital Signs Temperature 97.8 F 11/09/23 08:00 Pulse Rate 85 11/09/23 10:26 Respiratory Rate 17 11/09/23 10:26 Blood Pressure 179/82 11/09/23 10:26 Pulse Oximetry 90 11/09/23 10:26 Oxygen Delivery Me thod Nasal Cannula 11/09/23 08:00 Oxygen Flow Rate 3 11/09/23 01:50 MDM - Chest Pain Medical Decision Making Resolved chest discomfort in a 73-year-old female. She has a loose history of ED of syncope a couple of days ago. She is anticoagulated. Her EKG showed a sinus rhythm with occasional PVCs. Rate is 90. Rector is normal. Intervals are normal. No acute ST wave changes. Laboratory is pending. Positive delta troponin of +4.9. Patient's pain is relieved after nitroglycerin. She had a stress test in April of this year she had with couple of syncopal episodes 2 and 3 days ago. She is of lung cancer is in remission. She currently on apixaban we will hold her apixaban substituted Lovenox topical nitro consult cardiology admit to hospitalist Medical Records I reviewed the patient's medical records. Lab Data I reviewed the patient's lab results. 11/09/23 03:34 11/09/23 03:34 Radiology Impressions Chest X-Ray 11/08/23 05:34 IMPRESSION: No acute cardiopulmonary disease. Abdomen/Pelvis CT 11/08/23 06:33 IMPRESSION: No acute subdiaphragmatic pathology. Laboratory Results WBC 10.46 10^3/uL (3.29-11.43) 11/08/23 06:04 RBC 3.55 10^6/uL (3.85-5.65) L 11/08/23 06:04 Hgb 9.80 g/dL (11.27-16.99) L 11/08/23 06:04 Hct 32.0 % (36-47) L 11/08/23 06:04 MCV 90.1 fl (85-98) 11/08/23 06:04 MCH 27.6 pg (27-33) 11/08/23 06:04 MCHC 30.6 g/dL (30-55) 11/08/23 06:04 RDW 16.6 % (12.1-15.1) H 11/08/23 06:04 Plt Count 220 10^3/cmm (157-399) 11/08/23 06:04 MPV 9.5 fL (7.4-10.4) 11/08/23 06:04 Neut % (Auto) 72.7 % 11/08/23 06:04 Lymph % (Auto) 13.4 % 11/08/23 06:04 Gooding % (Auto) 10.1 % 11/08/23 06:04 Eos % (Auto) 2.6 % 11/08/23 06:04 Baso % (Auto) 0.6 % 11/08/23 06:04 Neut # (Auto) 7.61 10^3/uL (1.8-7.7) 11/08/23 06:04 Lymph # (Auto) 1.4 10^3/uL (0.8-4.8) 11/08/23 06:04 Gooding # (Auto) 1.1 10^3/uL (0.2-0.9) H 11/08/23 06:04 Eos # (Auto) 0.3 10^3/uL (0.0-0.8) 11/08/23 06:04 Baso # (Auto) 0.1 10^3/uL (0.0-0.1) 11/08/23 06:04 Nucleated RBC % (auto) 0 % 11/08/23 06:04 Nucleated RBCs # 0.0 /100WBC 11/08/23 06:04 PT 20.50 SECONDS (12.1-14.9) H 11/08/23 06:04 INR 1.70 (0.8-1.2) H 11/08/23 06:04 APTT 40.9 SECONDS (23.9-36.7) H 11/08/23 06:04 Sodium 137 mmol/L (136-145) 11/08/23 06:04 Potassium 3.7 mmol/L (3.5-5.1) 11/08/23 06:04 Chloride 92 mmol/L (98-107) L 11/08/23 06:04 Carbon Dioxide 37 mmol/L (22-29) H 11/08/23 06:04 Anion Gap 11.7 (5-19) 11/08/23 06:04 BUN 14 mg/dL (8-23) 11/08/23 06:04 Creatinine 1.1 mg/dL (0.5-0.9) H 11/08/23 06:04 GFR Calculation Not Reportable 11/08/23 06:04 Glucose 108 mg/dL (65-115) 11/08/23 06:04 Calculated Osmolality 285 mOsm/kg (285-295) 11/08/23 06:04 Calcium 9.1 mg/dL (8.5-10.5) 11/08/23 06:04 Magnesium 1.9 mg/dL (1.7-2.3) 11/08/23 07:54 Iron 33 ug/dL (37-145) L 11/08/23 06:04 TIBC 310 mcg/dl 11/08/23 06:04 % Saturation 10.6 % (20-50) L 11/08/23 06:04 Unsat Iron Binding 277 ug/dL (112-347) 11/08/23 06:04 Ferritin 31 ng/mL (15-150) 11/08/23 06:04 Total Bilirubin 0.3 mg/dL (0.15-1.2) 11/08/23 06:04 AST 21 U/L (0-32) 11/08/23 06:04 ALT 10 U/L (0-33) 11/08/23 06:04 Alkaline Phosphatase 120 U/L (35-105) H 11/08/23 06:04 Creatine Kinase 52 U/L (26-192) 11/08/23 06:04 Troponin T Baseline 37 ng/L (0-10) H 11/08/23 06:04 Troponin T 120 Minute 41.93 ng/L (0-10) H 11/08/23 07:54 Delta Troponin T 4.93 ABS# (0-10) 11/08/23 07:54 NT-Pro-B Natriuret Pep 834 pg/mL (0-125) H 11/08/23 06:04 Total Protein 6.7 g/dL (6.6-8.7) 11/08/23 06:04 Albumin 4.2 g/dL (3.5-5.2) 11/08/23 06:04 Globulin 2.5 g/dL (1.3-4.6) 11/08/23 06:04 Lipase 11 U/L (13-60) L 11/08/23 06:04 Vitamin B12 311 pg/mL (232-1245) 11/08/23 06:04 Folate 9.2 ng/mL (4.8-37.3) 11/08/23 06:04 TSH 7.91 uIU/mL (0.27-4.20) H 11/08/23 07:54 All radiology interpretation(s) finalized by discharge Discharge Plan Discharge Patient Disposition: Admitted As Inpatient Admit Provider: Rony Pope Clinical Impression: Unstable angina, Syncope Atrial fibrillation Qualifiers: Atrial fibrillation type: persistent (not longstanding) Qualified Code(s): I 48.19 - Other persistent atrial fibrillation Condition: Stable Discharge Diet: Cardiac Discharge Activity: Increase activity as tolerated Sign Out Sign Out Data: Patient Sign Out occurred on 11/08/23 at 06:31. Patient's care was discussed, and care was transferred from Dev Ortiz DO to Bala Zapata DO. Coding Level of Care Code ED Research Geneticist for Delmer Ray
[2023-11-08 06:20] LABS: Basophils # 0.1 10^3/uL (0.0-0.1); Basophils % 0.6 %; Eosinophils # 0.3 10^3/uL (0.0-0.8); Eosinophils % 2.6 %; Lymphocytes # 1.4 10^3/uL (0.8-4.8); Lymphocytes % 13.4 %; Mean Corpuscular HGB Conc 30.6 g/dL (30-55); Mean Corpuscular Hemoglobin 27.6 pg (27-33); Mean Corpuscular Volume 90.1 fl (85-98); Mean Platelet Volume 9.5 fL (7.4-10.4); Monocytes # 1.1 10^3/uL (0.2-0.9); Monocytes % 10.1 %; Neutrophils # 7.61 10^3/uL (1.8-7.7); Neutrophils % 72.7 %; Nucleated Red Blood Cells % 0 %; Platelet Count 220 10^3/cmm (157-399); Red Blood Count 3.55 10^6/uL (3.85-5.65); Red Cell Distribution Width 16.6 % (12.1-15.1); White Blood Count 10.46 10^3/uL (3.29-11.43)
--- NOTE | 2023-11-08 06:33 | CTR_ITS ---
PROCEDURE INFORMATION: Exam: CT Abdomen And Pelvis Without Contrast Exam date and time: 11/08/2023 6:44 AM Age: 73 years old Clinical indication: Abdominal pain; Generalized; Prior surgery; Surgery date: 6+ months; Surgery type: Lumpectomy. Pacer. Stimulator. Rectal. RT hip. Hysterectomy. Patient HX: Diffuse abd pain TECHNIQUE: Imaging protocol: Computed tomography of the abdomen and pelvis without contrast. Radiation optimization: All CT scans at this facility use at least one of these dose optimization techniques: automated exposure control; mA and/or kV adjustment per patient size (includes targeted exams where dose is matched to clinical indication); or iterative reconstruction. REPORTING DATA: Count of CT and Cardiac NM exams in prior 12 months: This patient has received 12 known CTs and 0 known cardiac nuclear medicine studies in the 12 months prior to the current study. COMPARISON: CT chest abdpel w/*[id number] 01/09/2022 3:10 PM RADIATION DOSE METRICS: Total DLP (mGy-cm): 262.32 FINDINGS: Lungs: Calcified granuloma in the right lower lobe. Emphysematous COPD. New Coronary arteries: Extensive coronary artery calcifications. Liver: Normal. No mass. Gallbladder and bile ducts: Cholecystectomy. Pancreas: Normal. No ductal dilation. Spleen: Normal. No splenomegaly. Adrenal glands: Normal. No mass. Kidneys and ureters: Nonobstructing left renal calculus versus vascular calcifications. Stomach and bowel: There is a large amount of colonic fecal material suggesting constipation. Appendix: No evidence of appendicitis. Intraperitoneal space: Unremarkable. No free air. No significant fluid collection. Vasculature: Fairly extensive aortic iliac calcifications. Iliac artery stenosis is very likely. Lymph nodes: Unremarkable. No enlarged lymph nodes. Urinary bladder: Unremarkable as visualized. Reproductive: Hysterectomy. Bones/joints: ORIF of the proximal right femur. Soft tissues: Unremarkable. CT/CT abdomen pelvis wo con [id number] IMPRESSION: No acute subdiaphragmatic pathology.
[2023-11-08 06:34] LABS: Partial Thromboplastin Time 40.9 SECONDS (23.9-36.7)
[2023-11-08 06:45] LABS: Troponin(5th) Baseline 37 ng/L (0-10)
[2023-11-08 06:54] LABS: Alanine Aminotransferase 10 U/L (0-33); Albumin Level 4.2 g/dL (3.5-5.2); Alkaline Phosphatase 120 U/L (35-105); Anion Gap 11.7 (5-19); Aspartate Amino Transferase 21 U/L (0-32); Blood Urea Nitrogen 14 mg/dL (8-23); Calcium 9.1 mg/dL (8.5-10.5); Carbon Dioxide 37 mmol/L (22-29); Chloride 92 mmol/L (98-107); Creatine Phosphokinase 52 U/L (26-192); Globulin 2.5 g/dL (1.3-4.6); Glucose 108 mg/dL (65-115); Lipase 11 U/L (13-60); NT Pro B Type Natriuretic Pept 834 pg/mL (0-125); Osmolality Calculated 285 mOsm/kg (285-295); Potassium 3.7 mmol/L (3.5-5.1); Sodium 137 mmol/L (136-145); Total Bilirubin 0.3 mg/dL (0.15-1.2); Total Protein 6.7 g/dL (6.6-8.7)
--- NOTE | 2023-11-08 07:34 | ECG_ITS ---
[facility] Test Date: 2023-11-08 Pat Name: Sakina Lombardi Department: Room: Gender: Female Chancery Clerk: : 1950 Requested By: Dev Machado Order Number: [id number] Barney MD: Tico Yuen M.D. Measurements Intervals [place] Rate: 82 P: 83 MT: 147 QRS: 48 QRSD: 81 T: 62 QT: 432 QTc: 507 Interpretive Statements SINUS RHYTHM WITH SINUS ARRHYTHMIA PROLONGED QT INTERVAL Compared to ECG 11/08/2023 05:23:30 Prolonged QT interval now present Myocardial infarct finding no longer present Electronically Signed On 11-08-2023 15:59:14 MANAGER MOLECULAR by Tico Yuen M.D. [id number]
--- NOTE | 2023-11-08 07:34 | PC.PHAR ---
pt states she takes care of her own medications-pt states she takes lipitor 40mg takes 20mg three times a week ext shows last filled 09/10/23 30d/s 40mg daily-pt states she was having side affects from amiodarone 200mg daily filled on 11/03/23 30d/s to start on 11/04/23 pt states not taken since wed11/03/23-pt states the dr told her to takes levothyroxine 75mcg po wednesday through wednesday ext shows last filled 09/24/23 30d/s 75mcg daily-pt states she hasnt used her spiriva respimat in a month ext shows last filled 09/02/23 30d/s pt states she is going to talk to the dr about changing it to something else-notes are made in the pharmacy comments
[2023-11-08 08:35] LABS: Troponin 5 2HR 41.93 ng/L (0-10); Troponin 5 2HR Delta 4.93 ABS# (0-10)
--- NOTE | 2023-11-08 09:53 | P.CONIM_ITS ---
Providers/Reason For Consult 2 Consulting Physician/Specialty*: EDWIN Salmon MD/cardiology Reason for Consult*: Patient with history of coronary disease, presenting with increasing chest pains Requesting Physician: Dr. Zapata/ Primary Care Provider: Fei Laura DO History of Present Illness History of Present Illness Sakina Lombardi is a 73 year old female with a history of atrial fibrillation, hypertension, dyslipidemia, carotid artery stenosis, status post permanent pacemaker plantation for symptomatic bradycardia , peripheral artery disease and severe COPD, on home oxygen is presenting with complaints of chest pain. According the patient, she had this rather sudden onset of pain on the left side of the chest . she described as an electric shock like pain of 10/10 intensity radiating to the left shoulder and also the left arm. She did not have any associated nausea vomiting or sweating. She has a baseline shortness of breath and is on 24 oxygen. No other associated symptoms. The pain started easing off slowly. At the time of my examination, patient is still has some pain 1-2/10 in intensity, even though it is almost 8 hours since the onset of pain. She has no previous history for coronary disease or myocardial infarction. She has a history of diastolic heart failure. She had a cardiac catheterization 2009 which revealed no significant obstructive coronary artery disease. Apparently she had several stress tests since then and the most recent one was in April of this year. She was found to have some areas of fixed defects with no significant reversible defects. She had a permanent pacer implantation for sick sinus syndrome in April. The pacemaker function was found to be appropriate. She has a history of stage I lung cancer and had radiation treatment. Review of Systems 2 Narrative: CONSTITUTIONAL: No fever or chills. EYES: No blurring of vision or other visual disturbances lately. ENT: No hoarseness of voice, auditory disturbances or sore throat. CARDIOVASCULAR: As mentioned above. RESPIRATORY: She seems to have some worsening of the shortness of breath. GASTROINTESTINAL: No hematemesis or melena. GENITOURINARY: No dysuria or hematuria. INTEGUMENTARY: No skin rashes or history of skin cancer. NEURO: No transient ischemic attacks or amaurosis. PSYCHIATRIC: No history of psychosis or major depression. HEMATOLOGIC: No bleeding disorders or significant anemia. ENDOCRINE: No history of polyuria or polydipsia. MUSCULOSKELETAL: No recent joint pain or swelling. ALLERGY/IMMUNOLOGY: As mentioned above. Medications/Allergies Home Medications Medication Instructions Recorded Confirmed Last Taken Type buprenorphine 8 mg-naloxone 2 mg 1 film sublingual Q8H 12/04/19 11/08/23 11/07/23 History sublingual film (Suboxone) pt requesting am dos diphenhydramine HCl 25 mg capsule 50 mg PO BID 04/18/21 11/08/23 11/07/23 History (Benadryl) calcitriol 0.5 mcg capsule 0.5 mcg PO DAILY #90 caps 05/25/22 11/08/23 11/07/23 Rx (Rocaltrol) lidocaine 5 % topical patch 1 - 3 patch transdermal DAILY 05/21/23 11/08/23 Unknown History baclofen 10 mg tablet 10 mg PO Q8H PRN muscle spasm #90 07/01/23 11/08/23 Unknown Rx tabs montelukast 4 mg chewable tablet 8 mg (2 x 4 mg) PO DAILY #60 tabs 07/01/23 11/08/23 11/07/23 Rx Theraworx See Rx Instructions .Route .COMPLEX 07/27/23 11/08/23 Unknown History atorvastatin 40 mg tablet 20 mg PO .THREE TIMES A WEEK 07/27/23 11/08/23 Unknown History budesonide 0.5 mg/2 mL suspension 0.5 mg inhalation BID PRN unknown 07/27/23 11/08/23 Unknown History for nebulization levothyroxine 75 mcg tablet See Rx Instructions .Route .COMPLEX 07/27/23 11/08/23 11/05/23 History nitroglycerin 0.4 mg sublingual 0.4 mg sublingual Q5M PRN Chest 07/27/23 11/08/23 11/08/23 History tablet (Nitrostat) Pain albuterol sulfate 90 mcg/actuation 2 puff inhalation Q4H PRN 08/09/23 11/08/23 Unknown Rx aerosol inhaler (Ventolin HFA) Shortness Of Breath #18 grams lidocaine-prilocaine 2.5 %-2.5 % 1 applic topical DAILY PRN pain 08/12/23 11/08/23 Unknown Rx topical cream #50 grams fluticasone 500 mcg-salmeterol 50 1 inh inhalation BID #60 ea 09/02/23 11/08/23 11/07/23 Rx mcg/dose blistr powdr for inhalation (Advair Diskus) tiotropium bromide 2.5 2 puff inhalation DAILY #4 grams 09/02/23 11/08/23 1 Month Ago Rx mcg/actuation mist for inhalation ~10/09/23 (Spiriva Respimat) potassium chloride 20 mEq/15 mL 10 meq (7.5 mL) PO BID #450 mL 09/09/23 11/08/23 11/07/23 Rx oral liquid apixaban 5 mg tablet 5 mg PO BID #180 tabs 10/07/23 11/08/23 11/07/23 Rx metoprolol tartrate 25 mg tablet 25 mg PO BID #60 tabs 10/14/23 11/08/23 11/07/23 Rx amiodarone 200 mg tablet 200 mg PO DAILY #30 tabs 10/28/23 11/08/23 11/03/23 Rx bumetanide 1 mg tablet 1 mg PO BID 11/05/23 11/08/23 11/07/23 History cilostazol 50 mg tablet 50 mg PO BID 11/05/23 11/08/23 11/07/23 History cholecalciferol (vitamin D3) 1,250 50,000 unit PO Q7D 11/08/23 11/08/23 11/02/23 History mcg (50,000 unit) capsule magnesium oxide 400 mg PO DAILY 11/08/23 11/08/23 11/07/23 History roflumilast 500 mcg tablet 500 mcg PO DAILY 11/08/23 11/08/23 11/07/23 History Allergies Allergy/AdvReac Type Severity Reaction Status Date / Time 2-octyl cyanoacrylate Allergy ALGY-Rash Verified 11/08/23 07:20 adhesive tape Allergy ALGY-Rash Verified 11/08/23 07:20 amitriptyline Allergy ALGY-Hives Verified 11/08/23 07:20 amoxicillin Allergy ALGY-Hives Verified 11/08/23 07:20 cefaclor [From Ceclor] Allergy ALGY-Difficulty Verified 11/08/23 07:20 Breathing ciprofloxacin [From Cipro] Allergy ALGY-Difficulty Verified 11/08/23 07:20 Breathing gabapentin Allergy ALGY-Hives Verified 11/08/23 07:20 ibuprofen Allergy ALGY-Hives Verified 11/08/23 07:20 metronidazole [From Flagyl] Allergy ALGY-Hives Verified 11/08/23 07:20 Penicillins Allergy ALGY-Hives Verified 11/08/23 07:20 Sulfa (Sulfonamide Allergy ALGY-Hives Verified 11/08/23 07:20 Antibiotics) tetracycline Allergy ALGY-Hives Verified 11/08/23 07:20 trimethoprim Allergy ALGY-Hives Verified 11/08/23 07:20 PFSH Acute 2 PFSH: Medical History Left shoulder pain Avulsion fracture of left talus Skin tear of right upper arm without complication Orthopnea Sinus node dysfunction Sinus pause Bradycardia Orthostatic hypotension Hypovitaminosis D Seizure-like activity Syncopal episodes Nicotine dependence, cigarettes, with unspecified nicotine-induced disorders Sacral decubitus ulcer Chronic rhinosinusitis Infected epidermoid cyst Fall Lump of right breast Cor pulmonale Cor pulmonale Leg pain, left Lung cancer Acute exacerbation of chronic obstructive pulmonary disease Nicotine addiction Chronic respiratory failure with hypoxia Lung nodule Aortic cusp regurgitation Skin lesions Actinic keratosis due to exposure to sunlight Closed intertrochanteric fracture of right hip Smoking addiction Chronic pain Thyroid cancer SOB (shortness of breath) Dyslipidemia (high LDL; low HDL) History of COPD CVA (cerebral vascular accident) Benign essential hypertension CAD (coronary artery disease) Hx of carotid stenosis Leg pain, medial Neck strain COPD (chronic obstructive pulmonary disease) Plantar porokeratosis, acquired Surgical History Status post cardiac pacemaker procedure History of bronchoscopy History of hip surgery Hx of hysterectomy History of bilateral carpal tunnel release History of lumpectomy History of rectal surgery History of ankle surgery Status post open reduction and internal fixation (ORIF) of fracture H/O thyroidectomy S/P hardware removal Spine History of back surgery Port-A-Cath in place Family History Brother Leukemia Diabetes Lung disease Mother Anesthesia complication CAD (coronary artery disease) Father Bleeding disorder Clotting disorder CAD (coronary artery disease) Cancer Stroke Sister CAD (coronary artery disease) Chronic kidney disease (CKD) Lung disease Family/Other Diabetes Stroke Grandfather Suicide Denies family history of Dementia Social History Smoking and tobacco/nicotine status: current every day tobacco/nicotine user cigarettes Packs smoked per day: 0.5 Years cigarettes smoked: 55 [ Other cigarette details: Hx of 2 PPD x 50 Years, started at age 12] Quit status (tobacco/nicotine): considering quitting Second hand smoke exposure: Yes Alcohol intake: never Substance/Drug Use: current Substance/Drug use type: Marijuana Other substance/drug use details: Couple of months ago Gummies Adopted: No Lives independently: Yes Household members: none Housing: Apartment Marital status: / Current occupational status: disabled Do you think of yourself as: Straight/Heterosexual Current gender identity: Female Vitals/I&O/Wt Last Vital Signs Temp 97.6 F 11/08/23 05:19 Pulse 88 11/08/23 09:20 Resp 17 11/08/23 09:20 BP 136/53 11/08/23 08:55 Pulse Ox 89 L 11/08/23 09:20 O2 Del Method Nasal Cannula 11/08/23 09:10 O2 Flow Rate 3 11/08/23 09:10 Weight last 48 hrs Weight 85 lb Physical Exam 2 Narrative: GENERAL: The patient is alert and oriented times three. Somewhat tachypneic with a respiratory rate of 22/min. Lean and emaciated. HEENT: No significant pallor, icterus or lymphadenopathy.Oral cavity: There are no mucous membrane lesions. NECK: Trachea appears to be central. No masses noted. No JVD or thyromegaly appreciated. RESPIRATORY: Chest has some kyphoscoliosis.. No intercostals muscle retraction or any accessory muscle activation. There is no chest wall tenderness. Breath sounds are heard bilaterally, with a diminished intensity of breath sounds in the bases. Scattered expiratory wheezing. BREASTS: Deferred. HEART: The heart sounds are normal. No S3 or S4. No significant murmurs. No pericardial rub ABDOMEN: No vessel pulsations or distention. No tenderness. No organomegaly appreciated. Bowel sounds are normally heard. : Deferred. RECTAL: Deferred. LYMPHATIC: No lymphadenopathy noted in the neck. EXTREMITIES: 1+ edema with no cyanosis. MUSCULOSKELETAL: No acute joint deformities or swelling SKIN: There are no significant rashes or ecchymosis NEUROPSYCHIATRIC: The patient is alert and oriented x3. Appears to be in a good mood. No tremors or rigidity noted. Data 11/09/23 03:34 11/09/23 03:34 Other Labs: Laboratory Last Values WBC 10.46 10^3/uL (3.29-11.43) 11/08/23 06:04 RBC 3.55 10^6/uL (3.85-5.65) L 11/08/23 06:04 Hgb 9.80 g/dL (11.27-16.99) L 11/08/23 06:04 Hct 32.0 % (36-47) L 11/08/23 06:04 MCV 90.1 fl (85-98) 11/08/23 06:04 MCH 27.6 pg (27-33) 11/08/23 06:04 MCHC 30.6 g/dL (30-55) 11/08/23 06:04 RDW 16.6 % (12.1-15.1) H 11/08/23 06:04 Plt Count 220 10^3/cmm (157-399) 11/08/23 06:04 MPV 9.5 fL (7.4-10.4) 11/08/23 06:04 Neut % (Auto) 72.7 % 11/08/23 06:04 Lymph % (Auto) 13.4 % 11/08/23 06:04 Norton % (Auto) 10.1 % 11/08/23 06:04 Eos % (Auto) 2.6 % 11/08/23 06:04 Baso % (Auto) 0.6 % 11/08/23 06:04 Neut # (Auto) 7.61 10^3/uL (1.8-7.7) 11/08/23 06:04 Lymph # (Auto) 1.4 10^3/uL (0.8-4.8) 11/08/23 06:04 Norton # (Auto) 1.1 10^3/uL (0.2-0.9) H 11/08/23 06:04 Eos # (Auto) 0.3 10^3/uL (0.0-0.8) 11/08/23 06:04 Baso # (Auto) 0.1 10^3/uL (0.0-0.1) 11/08/23 06:04 Nucleated RBC % (auto) 0 % 11/08/23 06:04 Nucleated RBCs # 0.0 /100WBC 11/08/23 06:04 PT 20.50 SECONDS (12.1-14.9) H 11/08/23 06:04 INR 1.70 (0.8-1.2) H 11/08/23 06:04 APTT 40.9 SECONDS (23.9-36.7) H 11/08/23 06:04 Sodium 137 mmol/L (136-145) 11/08/23 06:04 Potassium 3.7 mmol/L (3.5-5.1) 11/08/23 06:04 Chloride 92 mmol/L (98-107) L 11/08/23 06:04 Carbon Dioxide 37 mmol/L (22-29) H 11/08/23 06:04 Anion Gap 11.7 (5-19) 11/08/23 06:04 BUN 14 mg/dL (8-23) 11/08/23 06:04 Creatinine 1.1 mg/dL (0.5-0.9) H 11/08/23 06:04 GFR Calculation Not Reportable 11/08/23 06:04 Glucose 108 mg/dL (65-115) 11/08/23 06:04 Calculated Osmolality 285 mOsm/kg (285-295) 11/08/23 06:04 Calcium 9.1 mg/dL (8.5-10.5) 11/08/23 06:04 Total Bilirubin 0.3 mg/dL (0.15-1.2) 11/08/23 06:04 AST 21 U/L (0-32) 11/08/23 06:04 ALT 10 U/L (0-33) 11/08/23 06:04 Alkaline Phosphatase 120 U/L (35-105) H 11/08/23 06:04 Creatine Kinase 52 U/L (26-192) 11/08/23 06:04 Troponin T Baseline 37 ng/L (0-10) H 11/08/23 06:04 Troponin T 120 Minute 41.93 ng/L (0-10) H 11/08/23 07:54 Delta Troponin T 4.93 ABS# (0-10) 11/08/23 07:54 NT-Pro-B Natriuret Pep 834 pg/mL (0-125) H 11/08/23 06:04 Total Protein 6.7 g/dL (6.6-8.7) 11/08/23 06:04 Albumin 4.2 g/dL (3.5-5.2) 11/08/23 06:04 Globulin 2.5 g/dL (1.3-4.6) 11/08/23 06:04 Lipase 11 U/L (13-60) L 11/08/23 06:04 Other data: The EKG from today, 11/08/2023 revealed Normal sinus rhythm with a rate of 93 bpm. Possible old septal OK. No acute ST-T changes. 05/21/2023 1. Small sized perfusion abnormality of mild severity of mid inferolateral, apical lateral, apical inferior and apical septal and apical fisher. 2. This may represent attenuation artifact or old myocardial infarction in left anterior descending artery territory. 3. EKG portion of the study will be reported separately. 4. No Coronary ischemia based on the study. Echocardiogram on 05/21/2023 LV systolic function is normal with EF of 55 to 60%. Mild mitral regurgitation Moderate aortic regurgitation Moderate tricuspid regurgitation Moderate pulmonary hypertension Compared to prior echocardiogram from 05/2022, no significant changes are seen A&P Assessment and plan (1) Chest pain: The patient is prolonged episode of chest pain is unexplained. In view of her multiple risk factors, possibility of coronary ischemia cannot be excluded. However she has no evidence of any myocardial injury. The EKG is unremarkable. No new arrhythmias are noted on the monitor. Qualifiers: Chest pain type: precordial pain Qualified Code(s): R07.2 - Precordial pain (2) COPD (chronic obstructive pulmonary disease): Patient is on home oxygen, 3 L/min by nasal cannula. Currently seems to be stable. Qualifiers: COPD type: emphysema Emphysema type: centrilobular Qualified Code(s): J43.2 - Centrilobular emphysema (3) PVD (peripheral vascular disease): Patient was ordered an THANG of 0.7 on the right side and 0.9 on the left side. Currently seems to have no significant symptoms. (4) Atrial fibrillation: Patient currently seems to be in sinus rhythm. She is on amiodarone. Qualifiers: Atrial fibrillation type: persistent (not longstanding) Qualified Code(s): I48.19 - Other persistent atrial fibrillation (5) Hx of carotid stenosis: The most recent Doppler examination in March of this year revealed bilateral carotid stenosis of less than 50%. (6) Chronic diastolic heart failure: Currently patient decompensated. May do a BNP to further evaluate. (7) Presence of permanent cardiac pacemaker: The patient's pacemaker function was found to be appropriate. May continue on the current management for the time being. (8) Recurrent syncope: The etiology of the recurrent syncope is not clear at this time. The pacemaker function was found to be appropriate. Possibility of hypotension or some other form of arrhythmia causing this cannot be excluded. Plan Serial cardiac enzymes and EKGs will be appropriate rule out myocardial infarction. If she has evidence of myocardial injury, we may consider doing a cardiac catheterization to further evaluate. Patient need to be closely monitored on telemetry. Will be watching for any new form of arrhythmia. Based on the clinical progress, further recommendations will be made. We may do a limited 2D echocardiogram to evaluate the LV function and rule out any other pathology. Thank you for the opportunity to evaluate patient make these recommendations Consult Attestations 2 Medical Necessity Statement: Defer to the primary Coding Level of Care Code 42420 Diagnoses Precordial pain R07.2 Chest pain type: precordial pain Centrilobular emphysema J43.2 COPD type: emphysema Emphysema type: centrilobular PVD (peripheral vascular disease) I73.9 Persistent atrial fibrillation I48.19 Atrial fibrillation type: persistent (not longstanding) Hx of carotid stenosis Z86.79 Chronic diastolic heart failure I50.32 Presence of permanent cardiac pacemaker Z95.0 Recurrent syncope R55
--- NOTE | 2023-11-08 10:45 | P.HP_ITS ---
Documented by User: sandra Chao 11/08/23 11:24 Providers/Chief Complaint 2 Admitting Physician: Rony Pope MD Primary Care Provider: Fei Laura DO Chief Complaint: Chest pain History of Present Illness Patient is a 73-year-old female with a past medical history of emphysema, A-fib, pacemaker placement, CHF, aortic regurgitation, CAD, PVD, COPD who presents to the emergency room with chest pain. Patient will be admitted to the hospital due to concerns for elevated troponin and CHF exacerbation. Patient reports that she typically does not lay down for bed until around 3 to 4 AM. Patient states that she laid down for bed at 4 AM on 11/08/2023 and experienced chest pain with a 10/10 on pain scale. She reported that this chest pain was localized to left chest wall and radiated to her back and down her left arm. She states felt like a throb and electrical shock going through my body. States that she took 1 nitroglycerin sublingual at home with no relief. Reports 5 minutes later she took nitroglycerin sublingual with no relief. Reports that she called EMS at this time. EMS arrived and administered a third nitroglycerin sublingual with no relief as well as aspirin 325 mg. Patient does report that she was short of breath while at rest and on exertion with chest pain, dizzy. States that she is normally short of breath due to past medical history of COPD, but this has increased with this current chest pain. She denies any productive cough, fever, abdominal pain, nausea, palpitations, vomiting. Patient also reports that she has had some recent falls; approximately 1-2 falls per month. States she feels faint/dizzy before the falls occurs. Did report feeling dizzy while utilizing the commode. Reports recent fall 2 days ago where she fell out of the shower and scraped her left medial romero and right cheekbone. Noted ecchymosis to both areas. States that she had a recent medication change and currently on Eliquis. States patient did receive Eliquis yesterday but not today. States that she has had some previous chest pain episodes in the past where she has administered nitroglycerin at home and did receive some relief, but unfortunately this present CP did not subside. Patient does live at at home alone but did call her son as he advised also to call EMS at this time. While in the emergency room, laboratory and radiology imaging was obtained, see below. Patient received 2 nitroglycerin sublingual at home and 1 sublingual nitroglycerin via EMS. 325 aspirin p.o. in EMS. Due to concerns for elevated troponin level, elevated BNP level, angina, patient will be admitted to the hospital for further medical management. Review of Systems 2 Narrative: Comprehensive 10 point ROS is negative except as noted in the above HPI. Card: Reports: chest pain, lightheadedness and dyspnea on exertion; Denies: palpitations Resp: Reports: dyspnea Medications/Allergies Home Medications Medication Instructions Recorded Confirmed Last Taken Type buprenorphine 8 mg-naloxone 2 mg 1 film sublingual Q8H 12/04/19 11/08/23 11/07/23 History sublingual film (Suboxone) pt requesting am dos diphenhydramine HCl 25 mg capsule 50 mg PO BID 04/18/21 11/08/23 11/07/23 History (Benadryl) calcitriol 0.5 mcg capsule 0.5 mcg PO DAILY #90 caps 05/25/22 11/08/23 11/07/23 Rx (Rocaltrol) lidocaine 5 % topical patch 1 - 3 patch transdermal DAILY 05/21/23 11/08/23 Unknown History baclofen 10 mg tablet 10 mg PO Q8H PRN muscle spasm #90 07/01/23 11/08/23 Unknown Rx tabs montelukast 4 mg chewable tablet 8 mg (2 x 4 mg) PO DAILY #60 tabs 07/01/23 11/08/23 11/07/23 Rx Theraworx See Rx Instructions .Route .COMPLEX 07/27/23 11/08/23 Unknown History atorvastatin 40 mg tablet 20 mg PO .THREE TIMES A WEEK 07/27/23 11/08/23 Unknown History budesonide 0.5 mg/2 mL suspension 0.5 mg inhalation BID PRN unknown 07/27/23 11/08/23 Unknown History for nebulization levothyroxine 75 mcg tablet See Rx Instructions .Route .COMPLEX 07/27/23 11/08/23 11/05/23 History nitroglycerin 0.4 mg sublingual 0.4 mg sublingual Q5M PRN Chest 07/27/23 11/08/23 11/08/23 History tablet (Nitrostat) Pain albuterol sulfate 90 mcg/actuation 2 puff inhalation Q4H PRN 08/09/23 11/08/23 Unknown Rx aerosol inhaler (Ventolin HFA) Shortness Of Breath #18 grams lidocaine-prilocaine 2.5 %-2.5 % 1 applic topical DAILY PRN pain 08/12/23 11/08/23 Unknown Rx topical cream #50 grams fluticasone 500 mcg-salmeterol 50 1 inh inhalation BID #60 ea 09/02/23 11/08/23 11/07/23 Rx mcg/dose blistr powdr for inhalation (Advair Diskus) tiotropium bromide 2.5 2 puff inhalation DAILY #4 grams 09/02/23 11/08/23 1 Month Ago Rx mcg/actuation mist for inhalation ~10/09/23 (Spiriva Respimat) potassium chloride 20 mEq/15 mL 10 meq (7.5 mL) PO BID #450 mL 09/09/23 11/08/23 11/07/23 Rx oral liquid apixaban 5 mg tablet 5 mg PO BID #180 tabs 10/07/23 11/08/23 11/07/23 Rx metoprolol tartrate 25 mg tablet 25 mg PO BID #60 tabs 10/14/23 11/08/23 11/07/23 Rx amiodarone 200 mg tablet 200 mg PO DAILY #30 tabs 10/28/23 11/08/23 11/03/23 Rx bumetanide 1 mg tablet 1 mg PO BID 11/05/23 11/08/23 11/07/23 History cilostazol 50 mg tablet 50 mg PO BID 11/05/23 11/08/23 11/07/23 History cholecalciferol (vitamin D3) 1,250 50,000 unit PO Q7D 11/08/23 11/08/23 11/02/23 History mcg (50,000 unit) capsule magnesium oxide 400 mg PO DAILY 11/08/23 11/08/23 11/07/23 History roflumilast 500 mcg tablet 500 mcg PO DAILY 11/08/23 11/08/23 11/07/23 History Allergies Allergy/AdvReac Type Severity Reaction Status Date / Time 2-octyl cyanoacrylate Allergy ALGY-Rash Verified 11/08/23 07:20 adhesive tape Allergy ALGY-Rash Verified 11/08/23 07:20 amitriptyline Allergy ALGY-Hives Verified 11/08/23 07:20 amoxicillin Allergy ALGY-Hives Verified 11/08/23 07:20 cefaclor [From Ceclor] Allergy ALGY-Difficulty Verified 11/08/23 07:20 Breathing ciprofloxacin [From Cipro] Allergy ALGY-Difficulty Verified 11/08/23 07:20 Breathing gabapentin Allergy ALGY-Hives Verified 11/08/23 07:20 ibuprofen Allergy ALGY-Hives Verified 11/08/23 07:20 metronidazole [From Flagyl] Allergy ALGY-Hives Verified 11/08/23 07:20 Penicillins Allergy ALGY-Hives Verified 11/08/23 07:20 Sulfa (Sulfonamide Allergy ALGY-Hives Verified 11/08/23 07:20 Antibiotics) tetracycline Allergy ALGY-Hives Verified 11/08/23 07:20 trimethoprim Allergy ALGY-Hives Verified 11/08/23 07:20 PFSH Acute 2 PFSH: Medical History Left shoulder pain Avulsion fracture of left talus Skin tear of right upper arm without complication Orthopnea Sinus node dysfunction Sinus pause Bradycardia Orthostatic hypotension Hypovitaminosis D Seizure-like activity Syncopal episodes Nicotine dependence, cigarettes, with unspecified nicotine-induced disorders Sacral decubitus ulcer Chronic rhinosinusitis Infected epidermoid cyst Fall Lump of right breast Cor pulmonale Cor pulmonale Leg pain, left Lung cancer Acute exacerbation of chronic obstructive pulmonary disease Nicotine addiction Chronic respiratory failure with hypoxia Lung nodule Aortic cusp regurgitation Skin lesions Actinic keratosis due to exposure to sunlight Closed intertrochanteric fracture of right hip Smoking addiction Chronic pain Thyroid cancer SOB (shortness of breath) Dyslipidemia (high LDL; low HDL) History of COPD CVA (cerebral vascular accident) Benign essential hypertension CAD (coronary artery disease) Hx of carotid stenosis Leg pain, medial Neck strain COPD (chronic obstructive pulmonary disease) Plantar porokeratosis, acquired Surgical History Status post cardiac pacemaker procedure History of bronchoscopy History of hip surgery Hx of hysterectomy History of bilateral carpal tunnel release History of lumpectomy History of rectal surgery History of ankle surgery Status post open reduction and internal fixation (ORIF) of fracture H/O thyroidectomy S/P hardware removal Spine History of back surgery Port-A-Cath in place Family History Brother Leukemia Diabetes Lung disease Mother Anesthesia complication CAD (coronary artery disease) Father Bleeding disorder Clotting disorder CAD (coronary artery disease) Cancer Stroke Sister CAD (coronary artery disease) Chronic kidney disease (CKD) Lung disease Family/Other Diabetes Stroke Grandfather Suicide Denies family history of Dementia Social History Smoking and tobacco/nicotine status: current every day tobacco/nicotine user cigarettes Packs smoked per day: 0.5 Years cigarettes smoked: 55 [ Other cigarette details: Hx of 2 PPD x 50 Years, started at age 12] Quit status (tobacco/nicotine): considering quitting Second hand smoke exposure: Yes Alcohol intake: never Substance/Drug Use: current Substance/Drug use type: Marijuana Other substance/drug use details: Couple of months ago Gummies Adopted: No Lives independently: Yes Household members: none Housing: Apartment Marital status: / Current occupational status: disabled Do you think of yourself as: Straight/Heterosexual Current gender identity: Female Vitals/I&O/Wt Last Vital Signs Temp 97.6 F 11/08/23 05:19 Pulse 91 11/08/23 10:20 Resp 35 H 11/08/23 10:25 BP 125/55 11/08/23 10:25 Pulse Ox 95 11/08/23 10:20 O2 Del Method Nasal Cannula 11/08/23 09:10 O2 Flow Rate 3 11/08/23 09:10 Weight last 48 hrs Weight 38.555 kg Physical Exam 2 Narrative: General: Alert, able to answer questions appropriately, frail HEENT: Dry mucous membranes Neck: Supple Lymph: No lymphadenopathy noted Chest: Normal to inspection Respiratory: Prolonged expiratory phase, inspiratory and expiratory rhonchi present Cardio: RRR, no murmur present, peripheral pulses 1+ radial and dorsalis pedis bilateral. GI: Active bowel sounds throughout : Deferred Extremities/skin: Ecchymosis throughout bilateral extremities. No edema present. Ecchymosis to right cheek facial. Open laceration to left medial romero. Data 11/08/23 06:04 11/08/23 06:04 Other Labs: Hemoglobin 9.8, hematocrit 32, PT 20.5, PT/INR 1.7, PTT 40.9 Alk phos 120, baseline troponin 37, 2-hour troponin 41.93, BNP 834, CXR: My impression: No acute findings. Radiologist's impression: No acute cardiopulmonary disease findings. CT Abd/Pel: My impression: No acute findings. Radiologist's impression: No acute findings. EKG 1: My Interpretation: Sinus arrhythmia EKG 2: My Interpretation: Sinus arrhythmia A&P Assessment and plan (1) Elevated troponin: Recent echocardiogram performed on 05/20/2023 revealed an ejection fraction of 55 to 60%,No RV strain. Did show mild mitral regurg, moderate aortic regurg, moderate tricuspid regurg, moderate pulmonary hypertension.The stress test was then performed that same day and revealed no EKG changes, chest pain or arrhythmia present. We will continue to trend a 6-hour troponin as the patient's second hour troponin was slightly elevated from initial. Patient does not have chest pain at this time during history and physical. Cardiology consultation. Telemetry CBC, BMP, mag in AM. (2) Syncope: Reports several different syncopal episodes while at home. States that she is not falling over anything but feeling dizzy prior to syncope. Possibly related to patient's hypoxia or unstable chest pain. States that she also takes nitroglycerin sublingual at home during chest pain event. (3) Unstable angina: As per #1 (4) Intermittent atrial fibrillation: Stable. Patient currently in sinus arrhythmia. Trend EKGs. Telemetry Continue Eliquis Continue amiodarone (5) COPD (chronic obstructive pulmonary disease): 3L/NC baseline at home. Patient remains at baseline oxygen level with current 3L/NC. DuoNebs every 6 hours. Budesonide twice daily Plan Plan as stated above. Cardiology consultation. Monitor and trend troponin levels at this time. DVT prophylaxis: Eliquis CODE STATUS: Full code. In the event patient is unable to make decisions for herself, Ye son, will make decisions for patient. Coding Level of Care Code 96867 Diagnoses Elevated troponin R79.89 Syncope R55 Unstable angina I20.0 Intermittent atrial fibrillation I48.0 Chronic obstructive pulmonary disease with acute exacerbation J44.9 Time Spent (min) 54 Documented by User: Rony Pope MD 11/08/23 11:46 Providers/Chief Complaint 2 Chief Complaint: Chest pain History of Present Illness Patient is a 73-year-old female with a past medical history of emphysema, A-fib, pacemaker placement, CHF, aortic regurgitation, CAD, PVD, COPD who presents to the emergency room with chest pain. Patient will be admitted to the hospital due to concerns for elevated troponin. Patient reports that she typically does not lay down for bed until around 3 to 4 AM. Patient states that she laid down for bed at 4 AM on 11/08/2023 and experienced chest pain with a 10/10 on pain scale. She reported that this chest pain was localized to left chest wall and radiated to her back and down her left arm. She states felt like a throb and electrical shock going through my body. States that she took 1 nitroglycerin sublingual at home with no relief. Reports 5 minutes later she took nitroglycerin sublingual with no relief. Reports that she called EMS at this time. EMS arrived and administered a third nitroglycerin sublingual with no relief as well as aspirin 325 mg. Patient does report that she was short of breath while at rest and on exertion with chest pain, dizzy. States that she is normally short of breath due to past medical history of COPD, but this has increased with this current chest pain. She denies any productive cough, fever, abdominal pain, nausea, palpitations, vomiting. Patient also reports that she has had some recent falls; approximately 1-2 falls per month. States she feels faint/dizzy before the falls occurs. Did report feeling dizzy while utilizing the commode. Reports recent fall 2 days ago where she fell out of the shower and scraped her left medial romero and right cheekbone. Noted ecchymosis to both areas. States that she had a recent medication change and currently on Eliquis. States patient did receive Eliquis yesterday but not today. States that she has had some previous chest pain episodes in the past where she has administered nitroglycerin at home and did receive some relief, but unfortunately this present CP did not subside. Patient does live at at home alone but did call her son as he advised also to call EMS at this time. While in the emergency room, laboratory and radiology imaging was obtained, see below. Patient received 2 nitroglycerin sublingual at home and 1 sublingual nitroglycerin via EMS. 325 aspirin p.o. in EMS. Due to concerns for elevated troponin level, elevated BNP level, angina, patient will be admitted to the hospital for further medical management. Reports no chest discomfort currently. Review of Systems 2 GI: Denies: abdominal pain, nausea, vomiting, hematochezia or melena Medications/Allergies Home Medications Medication Instructions Recorded Confirmed Last Taken Type buprenorphine 8 mg-naloxone 2 mg 1 film sublingual Q8H 12/04/19 11/08/23 11/07/23 History sublingual film (Suboxone) pt requesting am dos diphenhydramine HCl 25 mg capsule 50 mg PO BID 04/18/21 11/08/23 11/07/23 History (Benadryl) calcitriol 0.5 mcg capsule 0.5 mcg PO DAILY #90 caps 05/25/22 11/08/23 11/07/23 Rx (Rocaltrol) lidocaine 5 % topical patch 1 - 3 patch transdermal DAILY 05/21/23 11/08/23 Unknown History baclofen 10 mg tablet 10 mg PO Q8H PRN muscle spasm #90 07/01/23 11/08/23 Unknown Rx tabs montelukast 4 mg chewable tablet 8 mg (2 x 4 mg) PO DAILY #60 tabs 07/01/23 11/08/23 11/07/23 Rx Theraworx See Rx Instructions .Route .COMPLEX 07/27/23 11/08/23 Unknown History atorvastatin 40 mg tablet 20 mg PO .THREE TIMES A WEEK 07/27/23 11/08/23 Unknown History budesonide 0.5 mg/2 mL suspension 0.5 mg inhalation BID PRN unknown 07/27/23 11/08/23 Unknown History for nebulization levothyroxine 75 mcg tablet See Rx Instructions .Route .COMPLEX 07/27/23 11/08/23 11/05/23 History nitroglycerin 0.4 mg sublingual 0.4 mg sublingual Q5M PRN Chest 07/27/23 11/08/23 11/08/23 History tablet (Nitrostat) Pain albuterol sulfate 90 mcg/actuation 2 puff inhalation Q4H PRN 08/09/23 11/08/23 Unknown Rx aerosol inhaler (Ventolin HFA) Shortness Of Breath #18 grams lidocaine-prilocaine 2.5 %-2.5 % 1 applic topical DAILY PRN pain 08/12/23 11/08/23 Unknown Rx topical cream #50 grams fluticasone 500 mcg-salmeterol 50 1 inh inhalation BID #60 ea 09/02/23 11/08/23 11/07/23 Rx mcg/dose blistr powdr for inhalation (Advair Diskus) tiotropium bromide 2.5 2 puff inhalation DAILY #4 grams 09/02/23 11/08/23 1 Month Ago Rx mcg/actuation mist for inhalation ~10/09/23 (Spiriva Respimat) potassium chloride 20 mEq/15 mL 10 meq (7.5 mL) PO BID #450 mL 09/09/23 11/08/23 11/07/23 Rx oral liquid apixaban 5 mg tablet 5 mg PO BID #180 tabs 10/07/23 11/08/23 11/07/23 Rx metoprolol tartrate 25 mg tablet 25 mg PO BID #60 tabs 10/14/23 11/08/23 11/07/23 Rx amiodarone 200 mg tablet 200 mg PO DAILY #30 tabs 10/28/23 11/08/23 11/03/23 Rx bumetanide 1 mg tablet 1 mg PO BID 11/05/23 11/08/23 11/07/23 History cilostazol 50 mg tablet 50 mg PO BID 11/05/23 11/08/23 11/07/23 History cholecalciferol (vitamin D3) 1,250 50,000 unit PO Q7D 11/08/23 11/08/23 11/02/23 History mcg (50,000 unit) capsule magnesium oxide 400 mg PO DAILY 11/08/23 11/08/23 11/07/23 History roflumilast 500 mcg tablet 500 mcg PO DAILY 11/08/23 11/08/23 11/07/23 History Allergies Allergy/AdvReac Type Severity Reaction Status Date / Time 2-octyl cyanoacrylate Allergy ALGY-Rash Verified 11/08/23 07:20 adhesive tape Allergy ALGY-Rash Verified 11/08/23 07:20 amitriptyline Allergy ALGY-Hives Verified 11/08/23 07:20 amoxicillin Allergy ALGY-Hives Verified 11/08/23 07:20 cefaclor [From Ceclor] Allergy ALGY-Difficulty Verified 11/08/23 07:20 Breathing ciprofloxacin [From Cipro] Allergy ALGY-Difficulty Verified 11/08/23 07:20 Breathing gabapentin Allergy ALGY-Hives Verified 11/08/23 07:20 ibuprofen Allergy ALGY-Hives Verified 11/08/23 07:20 metronidazole [From Flagyl] Allergy ALGY-Hives Verified 11/08/23 07:20 Penicillins Allergy ALGY-Hives Verified 11/08/23 07:20 Sulfa (Sulfonamide Allergy ALGY-Hives Verified 11/08/23 07:20 Antibiotics) tetracycline Allergy ALGY-Hives Verified 11/08/23 07:20 trimethoprim Allergy ALGY-Hives Verified 11/08/23 07:20 PFSH Acute 2 PFSH: Medical History Left shoulder pain Avulsion fracture of left talus Skin tear of right upper arm without complication Orthopnea Sinus node dysfunction Sinus pause Bradycardia Orthostatic hypotension Hypovitaminosis D Seizure-like activity Syncopal episodes Nicotine dependence, cigarettes, with unspecified nicotine-induced disorders Sacral decubitus ulcer Chronic rhinosinusitis Infected epidermoid cyst Fall Lump of right breast Cor pulmonale Cor pulmonale Leg pain, left Lung cancer Acute exacerbation of chronic obstructive pulmonary disease Nicotine addiction Chronic respiratory failure with hypoxia Lung nodule Aortic cusp regurgitation Skin lesions Actinic keratosis due to exposure to sunlight Closed intertrochanteric fracture of right hip Smoking addiction Chronic pain Thyroid cancer SOB (shortness of breath) Dyslipidemia (high LDL; low HDL) History of COPD CVA (cerebral vascular accident) Benign essential hypertension CAD (coronary artery disease) Hx of carotid stenosis Leg pain, medial Neck strain COPD (chronic obstructive pulmonary disease) Plantar porokeratosis, acquired Surgical History Status post cardiac pacemaker procedure History of bronchoscopy History of hip surgery Hx of hysterectomy History of bilateral carpal tunnel release History of lumpectomy History of rectal surgery History of ankle surgery Status post open reduction and internal fixation (ORIF) of fracture H/O thyroidectomy S/P hardware removal Spine History of back surgery Port-A-Cath in place Family History Brother Leukemia Diabetes Lung disease Mother Anesthesia complication CAD (coronary artery disease) Father Bleeding disorder Clotting disorder CAD (coronary artery disease) Cancer Stroke Sister CAD (coronary artery disease) Chronic kidney disease (CKD) Lung disease Family/Other Diabetes Stroke Grandfather Suicide Denies family history of Dementia Social History Smoking and tobacco/nicotine status: current every day tobacco/nicotine user cigarettes Packs smoked per day: 0.5 Years cigarettes smoked: 55 [ Other cigarette details: Hx of 2 PPD x 50 Years, started at age 12] Quit status (tobacco/nicotine): considering quitting Second hand smoke exposure: Yes Alcohol intake: never Substance/Drug Use: current Substance/Drug use type: Marijuana Other substance/drug use details: Couple of months ago Gummies Adopted: No Lives independently: Yes Household members: none Housing: Apartment Marital status: / Current occupational status: disabled Do you think of yourself as: Straight/Heterosexual Current gender identity: Female Physical Exam 2 Narrative: General: Alert, able to answer questions appropriately, frail HEENT: Dry mucous membranes. Slight bruising noted forehead right cheek Neck: Supple Lymph: No lymphadenopathy noted Chest: Normal to inspection Respiratory: Prolonged expiratory phase, inspiratory and expiratory rhonchi present Cardio: RRR, no murmur present, peripheral pulses 1+ radial and dorsalis pedis bilateral. GI: Active bowel sounds throughout : Deferred Extremities/skin: Ecchymosis throughout bilateral extremities. No edema present. Ecchymosis to right cheek facial. Open laceration to left medial romero. Data 11/08/23 06:04 11/08/23 06:04 A&P Assessment and plan (1) Elevated troponin: Recent echocardiogram performed on 05/20/2023 revealed an ejection fraction of 55 to 60%,No RV strain. Did show mild mitral regurg, moderate aortic regurg, moderate tricuspid regurg, moderate pulmonary hypertension.The stress test was then performed that same day and revealed no EKG changes, chest pain or arrhythmia present. There was a perfusion defect, unknown if it was old myocardial infarction or artifact We will continue to trend a 6-hour troponin as the patient's second hour troponin was slightly elevated from initial. Patient does not have chest pain at this time during history and physical. Cardiology consultation. Telemetry CBC, BMP, mag in AM. Aspirin, anticoagulation, statin, beta-kapil (2) Syncope: Reports several different syncopal episodes while at home. States that she is not falling over anything but feeling dizzy prior to syncope. Possibly related to patient's hypoxia or unstable chest pain. States that she also takes nitroglycerin sublingual at home during chest pain event. Pacemaker interrogation Hold bumetanide dose this afternoon, until cardiology evaluation Try to hold off on patient's baclofen, Benadryl. There are multiple medications which are a risk factors for recurring falls (3) Unstable angina: (4) Intermittent atrial fibrillation: Stable. Patient currently in sinus arrhythmia. Trend EKGs. Telemetry Continue Eliquis Continue amiodarone Check TSH, magnesium Pacemaker interrogation (5) COPD (chronic obstructive pulmonary disease): Plan Chronic pain. Continue Suboxone Chronic heart failure. Appears compensated currently. This is diastolic. Hold anticoagulation. Has moderate tricuspid and aortic regurg. Anemia. Initiate Protonix once daily. Check stool Hemoccult, anemia panel Plan as stated above. Cardiology consultation. Monitor and trend troponin levels at this time. DVT prophylaxis: Lovenox CODE STATUS: Full code. In the event patient is unable to make decisions for herself, Ye son, will make decisions for patient. Attestations 2 Medical Necessity Statement*: Patient will need Less than 2 midnight stay for evaluation of chest discomfort Diagnoses Elevated troponin R79.89 Syncope R55 Unstable angina I20.0 Intermittent atrial fibrillation I48.0 Chronic obstructive pulmonary disease with acute exacerbation J44.9 Time Spent (min) 54
[2023-11-08 12:17] LABS: Magnesium 1.9 mg/dL (1.7-2.3); Thyroid Stimulating Hormone 7.91 uIU/mL (0.27-4.20)
--- NOTE | 2023-11-08 12:28 | ECG_ITS ---
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 Measurements Intervals Patterson Rate: 93 P: 84 ND: 140 QRS: 49 QRSD: 83 T: 57 QT: 370 QTc: 461 Interpretive Statements SINUS RHYTHM WITH OCCASIONAL SUPRAVENTRICULAR PREMATURE COMPLEXES SEPTAL MYOCARDIAL INFARCTION , OF INDETERMINATE AGE [40+ ms Q WAVE IN V1/V2] Compared to ECG 11/08/2023 07:28:19 Myocardial infarct finding now present Sinus arrhythmia no longer present Prolonged QT interval no longer present Electronically Signed On 11-08-2023 15:59:53 LYE MACHINE OPERATOR by Tico Yuen M.D. [email or web address]
[2023-11-08 13:17] LABS: Troponin 5 6HR 40.22 ng/L (0-10); Troponin 5 6HR Delta 3.22 ng/L (0-12)
[2023-11-08 13:39] LABS: Folate Level 9.2 ng/mL (4.8-37.3)
[2023-11-08 13:40] LABS: Ferritin 31 ng/mL (15-150); Iron 33 ug/dL (37-145); Percent Saturation 10.6 % (20-50); Total Iron Binding Capacity 310 mcg/dl; Unsaturated Iron Binding 277 ug/dL (112-347); Vitamin B12 311 pg/mL (232-1245)
--- NOTE | 2023-11-08 16:19 | PC.NURSE ---
Patient arrives to CSU from ED at 1620.
--- NOTE | 2023-11-08 17:50 | USCV_ITS ---
Maria C, Sakina Age: 73 Gender: F : 1950 Exam Date: 11/08/2023 18:25 Ordering Phys: Chante Salmon MD ([email or web address]) Technologist: KIP [place] [facility] [place]: Unstable Angina Pectoris. Hx pacer BP: 163 / 78 HR: 82 Rhythm: Paced Technical Quality: Adequate MEASUREMENTS (Male / Female) Normal Values 2D ECHO LV Diastolic Diameter PLAX 2.7 cm 4.2 - 5.9 / 3.9 - 5.3 cm LV Systolic Diameter PLAX 1.8 cm IVS Diastolic Thickness 1.0 cm 0.6 - 1.0 / 0.6 - 0.9 cm IVS Systolic Thickness 1.1 cm LVPW Diastolic Thickness 0.9 cm 0.6 - 1.0 / 0.6 - 0.9 cm LVPW Systolic Thickness 1.3 cm LVOT Diameter 1.3 cm LV Ejection Fraction 2D Teich 61.9 % LV Ejection Fraction MOD 2C 53.0 % LV Ejection Fraction 2C AL 51.8 % LA Diameter 3.6 cm LA Width 3.9 cm LA Height 5.0 cm RA Width 3.4 cm RA Height 3.8 cm Aorta at Sinotubular Diameter 1.9 cm IVC Diameter 1.6 cm M-MODE Aortic Annulus Diameter 2.9 cm LA Ao Ratio MM 1.1 MV E Point Septal Separation 0.3 cm DOPPLER AV Peak Velocity 156.0 cm/s LVOT Peak Velocity 131.0 cm/s AV Area Cont Eq vti 1.1 cm squared AV Area Cont Eq pk 1.1 cm squared MV Area PHT 4.4 cm squared Mitral E to A Ratio 0.9 MV E' Velocity 53.5 cm/s Mitral E to MV E' Ratio 11.5 Mitral E to LV E' Lateral Ratio 11.8 Mitral E to LV E' Septal Ratio 11.4 TR Peak Velocity 321.8 cm/s TR Peak Gradient 41.4 mmHg TV Peak E Velocity 69.0 cm/s Right Atrial Pressure 10.0 mmHg Pulmonary Artery Systolic Pressu 51.4 mmHg PV Peak Velocity 108.0 cm/s RV Acceleration Time 0.1 s RV Ejection Time 0.3 s RV AcT/ET 0.3 FINDINGS Left Ventricle Normal left ventricular size and systolic function, EF 56 %. Echodensity in the chordal structures suggesting calcification/degenerative changes.Grade I/IV diastolic dysfunction (abnormal relaxation filling pattern), normal to mildly elevated filling pressures. Right Ventricle Catheter/pacemaker wire in the right ventricular cavity. Right Atrium Pacemaker wire is noted Left Atrium Mildly increased left atrial size. Mitral Valve Mild mitral annular calcification. Aortic Valve Thickened aortic valve. Moderate calcification of the valve. Trace of aortic valve regurgitation. Tricuspid Valve Moderate tricuspid valve regurgitation. Estimated pulmonary artery peak systolic pressure 52 mmHg Pulmonic Valve Mild pulmonary valve regurgitation. Pericardium Normal pericardium without effusion. Aorta Normal ascending aorta dimension. IVC Normal IVC dimension with <50% respiratory change of the inferior vena cava. CONCLUSIONS Normal left ventricular size and systolic function, EF 56 %. Echodensity in the chordal structures suggesting calcification/degenerative changes.Grade I/IV diastolic dysfunction (abnormal relaxation filling pattern), normal to mildly elevated filling pressures. Mildly increased left atrial size. Moderate tricuspid valve regurgitation. Moderate pulmonary hypertension with an estimated pulmonary artery peak systolic pressure of 52 mmHg Thickened aortic valve. Moderate calcification of the valve. Trace of aortic valve regurgitation. Mild mitral annular calcification. Mild pulmonary valve regurgitation. Pacemaker wire is noted in the right atrium and right ventricle There is no pericardial effusion. Compared to the study from 05/20/2023, there may not be a significant change Dr Chante Salmon MD [facility] (Electronically Signed) Final Date: 09 November 2023 08:38 S
[2023-11-08] MEDS: atorvastatin 40 mg Tablet 20 MG PO (18:09)
[2023-11-08] MEDS: enoxaparin 40 mg/0.4 mL Syringe SUBCUT (18:09)
[2023-11-08] MEDS: metoprolol tartrate 25 mg Tablet PO (18:09)
[2023-11-08] MEDS: ipratropium-albuterol 3 mL Neb INHALATION (21:07)
[2023-11-09 01:50] VITALS: PULSE 74; RESP 16; O2SAT 100
[2023-11-09] MEDS: ipratropium-albuterol 3 mL Neb INHALATION (01:50)
[2023-11-09 01:59] VITALS: PULSE 81
[2023-11-09 03:59] LABS: Basophils % 0.4 %; Eosinophils # 0.2 10^3/uL (0.0-0.8); Hematocrit 31.4 % (36-47); Lymphocytes # 1.2 10^3/uL (0.8-4.8); Mean Corpuscular HGB Conc 29.9 g/dL (30-55); Mean Corpuscular Hemoglobin 27.3 pg (27-33); Mean Corpuscular Volume 91.3 fl (85-98); Mean Platelet Volume 9.5 fL (7.4-10.4); Monocytes # 0.7 10^3/uL (0.2-0.9); Monocytes % 8.7 %; Neutrophils # 6.18 10^3/uL (1.8-7.7); Neutrophils % 74.4 %; Nucleated Red Blood Cells % 0 %; Platelet Count 203 10^3/cmm (157-399); Red Blood Count 3.44 10^6/uL (3.85-5.65); Red Cell Distribution Width 16.6 % (12.1-15.1)
[2023-11-09 04:22] VITALS: BP 175/84; PULSE 94; RESP 22; TEMP 36.3; O2SAT 94
[2023-11-09 04:29] LABS: Alanine Aminotransferase 9 U/L (0-33); Albumin Level 3.9 g/dL (3.5-5.2); Alkaline Phosphatase 117 U/L (35-105); Anion Gap 12.8 (5-19); Aspartate Amino Transferase 21 U/L (0-32); Blood Urea Nitrogen 18 mg/dL (8-23); Calcium 9.1 mg/dL (8.5-10.5); Carbon Dioxide 35 mmol/L (22-29); Chloride 93 mmol/L (98-107); Globulin 2.7 g/dL (1.3-4.6); Glucose 134 mg/dL (65-115); Magnesium 1.9 mg/dL (1.7-2.3); Osmolality Calculated 288 mOsm/kg (285-295); Potassium 3.8 mmol/L (3.5-5.1); Sodium 137 mmol/L (136-145); Total Bilirubin 0.3 mg/dL (0.15-1.2); Total Protein 6.6 g/dL (6.6-8.7)
[2023-11-09 06:00] VITALS: BMI 18.2
[2023-11-09 08:00] VITALS: BP 179/82; PULSE 89; RESP 18; TEMP 36.6; O2SAT 94
--- NOTE | 2023-11-09 08:43 | PM.PN ---
Subjective Subjective: Patient has no recurrence of chest pain. She is not interested in any further cardiac workup at this point. She might consider later on. Medications: Medication Review Details: Current Medications Acetaminophen (Acetaminophen 325 Mg Tablet) 650 mg PO Q6H PRN PRN Reason: Mild/Mod Pain Or Temp >/= 101 Albuterol/Ipratropium (Ipratropium-Albuterol 3 Ml Neb) 3 ml INHALATION Q6H.RESP [facility] Last Admin: 11/09/23 01:50 Dose: 3 ml Aspirin (Aspirin 81 Mg Ec Tablet) 81 mg PO DAILY [facility] Atorvastatin Calcium (Atorvastatin 40 Mg Tablet) 20 mg PO [email or web address] [facility] Last Admin: 11/08/23 18:09 Dose: 20 mg Budesonide (Budesonide 0.5 Mg/2 Ml Neb) 0.5 mg INHALATION BID.RESPIRATORY ALEXA Bumetanide (Bumetanide 1 Mg Tablet) 1 mg PO BID [facility] Enoxaparin Sodium (Enoxaparin 40 Mg/0.4 Ml Syringe) 40 mg SUBCUT Q24H [facility] Last Admin: 11/08/23 18:09 Dose: 40 mg Levothyroxine Sodium (Levothyroxine 75 Mcg Tablet) 75 mcg PO [email or web address]@0900 [facility] Magnesium Oxide (Magnesium Oxide 400 Mg Tablet) 400 mg PO DAILY [facility] Metoprolol Tartrate (Metoprolol Tartrate 25 Mg Tablet) 25 mg PO BID [facility] Last Admin: 11/08/23 18:09 Dose: 25 mg Morphine Sulfate (Morphine 4 Mg/Ml Sdv 1 Ml) 2 mg IVP Q4H PRN PRN Reason: SEVERE PAIN Non-Formulary Medication (Montelukast) 8 mg PO DAILY [facility] Non-Formulary Medication - Buprenorphine- Naloxone 8-2 Mg Film 1 each SUBLINGUAL 0630,1530,2330 [facility] Last Admin: 11/09/23 06:27 Dose: 1 each Ondansetron HCl (Ondansetron 2 Mg/Ml Sdv 2 Ml) 4 mg IVP Q6H PRN PRN Reason: NAUSEA AND VOMITING Pantoprazole Sodium (Pantoprazole Dr 40 Mg Tablet) 40 mg PO DAILY [facility] Potassium Chloride (Potassium Chloride Oral Liq 20 Meq/15 Ml Udc) 10 meq PO BID [facility] Roflumilast (Roflumilast 500 Mcg Tablet) 500 mcg PO DAILY [facility] Vitals/I&O/Wt Last Vital Signs Temp 97.4 F L 11/09/23 04:22 Pulse 94 11/09/23 04:22 Resp 22 H 11/09/23 04:22 BP 175/84 11/09/23 04:22 Pulse Ox 94 11/09/23 04:22 O2 Del Method Nasal Cannula 11/09/23 01:50 O2 Flow Rate 3 11/09/23 01:50 11/08/23 11/09/23 11/09/23 22:59 06:59 14:59 Intake Total 240 / 240 Balance 240 / 240 Weight last 48 hrs Weight 90 lb 7 oz Weight 85 lb Weight 85 lb Physical Exam Narrative: GENERAL: The patient is alert and oriented times three. Somewhat tachypneic with a respiratory rate of 22/min. Lean and emaciated. HEENT: No significant pallor, icterus or lymphadenopathy.Oral cavity: There are no mucous membrane lesions. NECK: Trachea appears to be central. No masses noted. No JVD or thyromegaly appreciated. RESPIRATORY: Chest has some kyphoscoliosis.. No intercostals muscle retraction or any accessory muscle activation. There is no chest wall tenderness. Breath sounds are heard bilaterally, with a diminished intensity of breath sounds in the bases. Scattered expiratory wheezing. BREASTS: Deferred. HEART: The heart sounds are normal. No S3 or S4. No significant murmurs. No pericardial rub ABDOMEN: No vessel pulsations or distention. No tenderness. No organomegaly appreciated. Bowel sounds are normally heard. : Deferred. RECTAL: Deferred. LYMPHATIC: No lymphadenopathy noted in the neck. EXTREMITIES: 1+ edema with no cyanosis. MUSCULOSKELETAL: No acute joint deformities or swelling SKIN: There are no significant rashes or ecchymosis NEUROPSYCHIATRIC: The patient is alert and oriented x3. Appears to be in a good mood. No tremors or rigidity noted. Data 11/09/23 03:34 11/09/23 03:34 Other Labs: Laboratory Last Values WBC 8.30 10^3/uL (3.29-11.43) 11/09/23 03:34 RBC 3.44 10^6/uL (3.85-5.65) L 11/09/23 03:34 Hgb 9.40 g/dL (11.27-16.99) L 11/09/23 03:34 Hct 31.4 % (36-47) L 11/09/23 03:34 MCV 91.3 fl (85-98) 11/09/23 03:34 MCH 27.3 pg (27-33) 11/09/23 03:34 MCHC 29.9 g/dL (30-55) L 11/09/23 03:34 RDW 16.6 % (12.1-15.1) H 11/09/23 03:34 Plt Count 203 10^3/cmm (157-399) 11/09/23 03:34 MPV 9.5 fL (7.4-10.4) 11/09/23 03:34 Neut % (Auto) 74.4 % 11/09/23 03:34 Lymph % (Auto) 14.0 % 11/09/23 03:34 [place] % (Auto) 8.7 % 11/09/23 03:34 Eos % (Auto) 2.0 % 11/09/23 03:34 Baso % (Auto) 0.4 % 11/09/23 03:34 Neut # (Auto) 6.18 10^3/uL (1.8-7.7) 11/09/23 03:34 Lymph # (Auto) 1.2 10^3/uL (0.8-4.8) 11/09/23 03:34 [place] # (Auto) 0.7 10^3/uL (0.2-0.9) 11/09/23 03:34 Eos # (Auto) 0.2 10^3/uL (0.0-0.8) 11/09/23 03:34 Baso # (Auto) 0.0 10^3/uL (0.0-0.1) 11/09/23 03:34 Nucleated RBC % (auto) 0 % 11/09/23 03:34 Nucleated RBCs # 0.0 /100WBC 11/09/23 03:34 PT 20.50 SECONDS (12.1-14.9) H 11/08/23 06:04 INR 1.70 (0.8-1.2) H 11/08/23 06:04 APTT 40.9 SECONDS (23.9-36.7) H 11/08/23 06:04 Sodium 137 mmol/L (136-145) 11/09/23 03:34 Potassium 3.8 mmol/L (3.5-5.1) 11/09/23 03:34 Chloride 93 mmol/L (98-107) L 11/09/23 03:34 Carbon Dioxide 35 mmol/L (22-29) H 11/09/23 03:34 Anion Gap 12.8 (5-19) 11/09/23 03:34 BUN 18 mg/dL (8-23) 11/09/23 03:34 Creatinine 1.2 mg/dL (0.5-0.9) H 11/09/23 03:34 GFR Calculation Not Reportable 11/09/23 03:34 Glucose 134 mg/dL (65-115) H 11/09/23 03:34 Calculated Osmolality 288 mOsm/kg (285-295) 11/09/23 03:34 Calcium 9.1 mg/dL (8.5-10.5) 11/09/23 03:34 Magnesium 1.9 mg/dL (1.7-2.3) 11/09/23 03:34 Iron 33 ug/dL (37-145) L 11/08/23 06:04 TIBC 310 mcg/dl 11/08/23 06:04 % Saturation 10.6 % (20-50) L 11/08/23 06:04 Unsat Iron Binding 277 ug/dL (112-347) 11/08/23 06:04 Ferritin 31 ng/mL (15-150) 11/08/23 06:04 Total Bilirubin 0.3 mg/dL (0.15-1.2) 11/09/23 03:34 AST 21 U/L (0-32) 11/09/23 03:34 ALT 9 U/L (0-33) 11/09/23 03:34 Alkaline Phosphatase 117 U/L (35-105) H 11/09/23 03:34 Creatine Kinase 52 U/L (26-192) 11/08/23 06:04 Troponin T Baseline 37 ng/L (0-10) H 11/08/23 06:04 Troponin T 120 Minute 41.93 ng/L (0-10) H 11/08/23 07:54 Delta Troponin T 4.93 ABS# (0-10) 11/08/23 07:54 Troponin T Hi Sens 6Hr 40.22 ng/L (0-10) H 11/08/23 12:30 Troponin T Hi Sens 6Hr Delta 3.22 ng/L (0-12) 11/08/23 12:30 NT-Pro-B Natriuret Pep 834 pg/mL (0-125) H 11/08/23 06:04 Total Protein 6.6 g/dL (6.6-8.7) 11/09/23 03:34 Albumin 3.9 g/dL (3.5-5.2) 11/09/23 03:34 Globulin 2.7 g/dL (1.3-4.6) 11/09/23 03:34 Lipase 11 U/L (13-60) L 11/08/23 06:04 Vitamin B12 311 pg/mL (232-1245) 11/08/23 06:04 Folate 9.2 ng/mL (4.8-37.3) 11/08/23 06:04 TSH 7.91 uIU/mL (0.27-4.20) H 11/08/23 07:54 A&P Assessment and plan (1) Chest pain: The patient is prolonged episode of chest pain is unexplained. In view of her multiple risk factors, possibility of coronary ischemia cannot be excluded. However she has no evidence of any myocardial injury. The EKG is unremarkable. No new arrhythmias are noted on the monitor. Qualifiers: Chest pain type: precordial pain Qualified Code(s): R07.2 - Precordial pain (2) COPD (chronic obstructive pulmonary disease): Patient is on home oxygen, 3 L/min by nasal cannula. Currently seems to be stable. Qualifiers: COPD type: emphysema Emphysema type: centrilobular Qualified Code(s): J43.2 - Centrilobular emphysema (3) PVD (peripheral vascular disease): Patient was ordered an THANG of 0.7 on the right side and 0.9 on the left side. Currently seems to have no significant symptoms. (4) Atrial fibrillation: Patient currently seems to be in sinus rhythm. She is on amiodarone. Qualifiers: Atrial fibrillation type: persistent (not longstanding) Qualified Code(s): I48.19 - Other persistent atrial fibrillation (5) Hx of carotid stenosis: The most recent Doppler examination in March of this year revealed bilateral carotid stenosis of less than 50%. (6) Chronic diastolic heart failure: Currently patient decompensated. May do a BNP to further evaluate. (7) Presence of permanent cardiac pacemaker: The patient's pacemaker function was found to be appropriate. May continue on the current management for the time being. (8) Recurrent syncope: The etiology of the recurrent syncope is not clear at this time. The pacemaker function was found to be appropriate. Possibility of hypotension or some other form of arrhythmia causing this cannot be excluded. Plan Since the patient is remaining stable with no recurrence of chest pain dialysis and she is not interested in any further workup at this time, may be discharged home. Will be seen in the clinic in 2 weeks. May consider cardiac catheterization versus stress test as an outpatient Attestations Medical Necessity Statement*: Possible discharge home today Coding Level of Care Code 98935 Diagnoses Precordial pain R07.2 Chest pain type: precordial pain Centrilobular emphysema J43.2 COPD type: emphysema Emphysema type: centrilobular PVD (peripheral vascular disease) I73.9 Persistent atrial fibrillation I48.19 Atrial fibrillation type: persistent (not longstanding) Hx of carotid stenosis Z86.79 Chronic diastolic heart failure I50.32 Presence of permanent cardiac pacemaker Z95.0 Recurrent syncope R55
--- NOTE | 2023-11-09 09:21 | PC.CHAP ---
Pastoral Care Encounter/Spiritual Assessment Type of Contact [] Declined manager country visit [] Patient/Family/Request visit [] Outpatient visit [] Follow-up visit [] Physician referral [] Code/Alert [x] Routine visit [] Staff referral [] Actively dying [] Patient sleeping [] Family support [] [] Out of room [] Palliative care [] [] Receiving care in room [] Pre-surgical visit [] Trauma [] Long length of stay [] ICU visit [] Other: Relational/Emotional Strength [x] Patient feels connected with others/family/visitors/staff [] Distress [] Loneliness/isolation [] Abandonment Spirituality of Patient [x] Person of Debra [] Attends Protestant of their Debra [x] Believes in Prayer [] Reads Bible or Jainism materials [] There are Spiritual issues to be addressed [place] Interventions [x] Prayer [] Active listening [] Non-anxious presence [x] Spiritual/emotional support [] Crisis/trauma care [] Spiritual counseling [] Bereavement support [] Provided bereavement packet [] Provided Bible/devotional materials [] Provided toy/stuffed animal, coloring book to patient or family member [] Provided Communion [] Anointing/[place] [] Salvation [] Completed spiritual assessment [] Other: Impact on Illness or Injury [] Angry [] Fearful [] Anxious [] Often cries [] Exhaustion [] Unable to work [] Unable to attend buddhist [] Unable to walk/stand [] Unable to read [] Unable to drive [] Unable to eat/drink [] Unable to sleep [] Unable to be with family [] Patient intubated [] Other: Summary Time spent with patient 5 min
[2023-11-09] MEDS: roflumilast 500 mcg Tablet PO (09:34)
[2023-11-09] MEDS: potassium chloride oral liq 20 mEq/15 mL UDC 10 MEQ PO (09:35)
[2023-11-09] MEDS: aspirin 81 mg EC Tablet PO (09:35)
[2023-11-09] MEDS: magnesium oxide 400 mg tablet PO (09:35)
[2023-11-09] MEDS: pantoprazole DR 40 mg Tablet PO (09:35)
[2023-11-09] MEDS: metoprolol tartrate 25 mg Tablet PO (09:35)
[2023-11-09] MEDS: bumetanide 1 mg Tablet PO (09:35)
[2023-11-09] MEDS: levothyroxine 75 mcg Tablet PO (09:35)
--- NOTE | 2023-11-09 10:00 | PM.DCS ---
Discharge Providers Date of Admission: 11/08/23 09:44 Date of Discharge: November 09, 2023 Attending Provider at Admission: Rony Pope MD Attending Provider at Discharge: Rony Pope MD Primary Care Provider: Fei Laura DO Diagnoses at Discharge Discharge Diagnosis (1) Chest pain: Status: Acute Qualifiers: Chest pain type: precordial pain Qualified Code(s): R07.2 - Precordial pain (2) COPD (chronic obstructive pulmonary disease): Status: Acute Qualifiers: COPD type: emphysema Emphysema type: centrilobular Qualified Code(s): J43.2 - Centrilobular emphysema (3) PVD (peripheral vascular disease): Status: Acute (4) Atrial fibrillation: Status: Acute Qualifiers: Atrial fibrillation type: persistent (not longstanding) Qualified Code(s): I48.19 - Other persistent atrial fibrillation (5) Hx of carotid stenosis: Status: Acute (6) Chronic diastolic heart failure: Status: Acute (7) Presence of permanent cardiac pacemaker: Status: Acute (8) Recurrent syncope: Status: Inactive Reason for Visit Reason for Visit: Chest pain Hospital Course Hospital Course Patient is a 73-year-old white female who presented to the hospital complaining of chest discomfort. She describes this as a sharp discomfort on the left side of her chest. EKG did not show any ST elevation. Troponin was elevated but did not show a concerning trend. She was placed in the hospital for observation, on telemetry. Cardiology was consulted. She had had some falls recently and medications were adjusted secondary to concern of medication she was on at home and increased fall risk. Through her hospital stay she had no recurrent chest discomfort. Cardiology reviewed her previous stress test 6 months ago, interviewed the patient, and did not believe further workup was needed at this time. A pacemaker evaluation did not show any significant concerns. Echocardiogram showed a preserved EF, 56% with 1/4 diastolic dysfunction and no significant change from prior. As she was chest pain-free, it was thought she could be safely discharged home with close follow-up with cardiology as well as her primary care provider. Patient was able ask questions and agreed with the plan. Of note, she also had a CT abdomen and pelvis done while being admitted in the emergency department that showed no active pathology. Physical Exam Narrative: General exam no distress Neck is supple Cardiovascular regular rate rhythm Lungs diminished breath sounds bilaterally with occasional wheeze Abdomen is soft Extremities no cyanosis clubbing Discharge Data Studies Completed and Pending Completed Studies During Hospitalization Category Date Time Status CT abdomen pelvis wo con [id number] Stat Cat Scan 11/08/23 06:33 Completed XR chest 1V portable [id number] Stat Exams 11/08/23 05:34 Completed US echo limited [CV. echo limited 01572] Routine Ultrasound 11/08/23 17:50 Completed Pending at discharge Category Date Time Status Fecal Occult Blood [Immunochemical Fecal OCB] Routine Lab 11/08/23 15:38 Uncollected Radiology Impressions Chest X-Ray 11/08/23 05:34 IMPRESSION: No acute cardiopulmonary disease. Abdomen/Pelvis CT 11/08/23 06:33 IMPRESSION: No acute subdiaphragmatic pathology. Laboratory Results WBC 8.30 10^3/uL (3.29-11.43) 11/09/23 03:34 RBC 3.44 10^6/uL (3.85-5.65) L 11/09/23 03:34 Hgb 9.40 g/dL (11.27-16.99) L 11/09/23 03:34 Hct 31.4 % (36-47) L 11/09/23 03:34 MCV 91.3 fl (85-98) 11/09/23 03:34 MCH 27.3 pg (27-33) 11/09/23 03:34 MCHC 29.9 g/dL (30-55) L 11/09/23 03:34 RDW 16.6 % (12.1-15.1) H 11/09/23 03:34 Plt Count 203 10^3/cmm (157-399) 11/09/23 03:34 MPV 9.5 fL (7.4-10.4) 11/09/23 03:34 Neut % (Auto) 74.4 % 11/09/23 03:34 Lymph % (Auto) 14.0 % 11/09/23 03:34 [place] % (Auto) 8.7 % 11/09/23 03:34 Eos % (Auto) 2.0 % 11/09/23 03:34 Baso % (Auto) 0.4 % 11/09/23 03:34 Neut # (Auto) 6.18 10^3/uL (1.8-7.7) 11/09/23 03:34 Lymph # (Auto) 1.2 10^3/uL (0.8-4.8) 11/09/23 03:34 [place] # (Auto) 0.7 10^3/uL (0.2-0.9) 11/09/23 03:34 Eos # (Auto) 0.2 10^3/uL (0.0-0.8) 11/09/23 03:34 Baso # (Auto) 0.0 10^3/uL (0.0-0.1) 11/09/23 03:34 Nucleated RBC % (auto) 0 % 11/09/23 03:34 Nucleated RBCs # 0.0 /100WBC 11/09/23 03:34 PT 20.50 SECONDS (12.1-14.9) H 11/08/23 06:04 INR 1.70 (0.8-1.2) H 11/08/23 06:04 APTT 40.9 SECONDS (23.9-36.7) H 11/08/23 06:04 Sodium 137 mmol/L (136-145) 11/09/23 03:34 Potassium 3.8 mmol/L (3.5-5.1) 11/09/23 03:34 Chloride 93 mmol/L (98-107) L 11/09/23 03:34 Carbon Dioxide 35 mmol/L (22-29) H 11/09/23 03:34 Anion Gap 12.8 (5-19) 11/09/23 03:34 BUN 18 mg/dL (8-23) 11/09/23 03:34 Creatinine 1.2 mg/dL (0.5-0.9) H 11/09/23 03:34 GFR Calculation Not Reportable 11/09/23 03:34 Glucose 134 mg/dL (65-115) H 11/09/23 03:34 Calculated Osmolality 288 mOsm/kg (285-295) 11/09/23 03:34 Calcium 9.1 mg/dL (8.5-10.5) 11/09/23 03:34 Magnesium 1.9 mg/dL (1.7-2.3) 11/09/23 03:34 Iron 33 ug/dL (37-145) L 11/08/23 06:04 TIBC 310 mcg/dl 11/08/23 06:04 % Saturation 10.6 % (20-50) L 11/08/23 06:04 Unsat Iron Binding 277 ug/dL (112-347) 11/08/23 06:04 Ferritin 31 ng/mL (15-150) 11/08/23 06:04 Total Bilirubin 0.3 mg/dL (0.15-1.2) 11/09/23 03:34 AST 21 U/L (0-32) 11/09/23 03:34 ALT 9 U/L (0-33) 11/09/23 03:34 Alkaline Phosphatase 117 U/L (35-105) H 11/09/23 03:34 Creatine Kinase 52 U/L (26-192) 11/08/23 06:04 Troponin T Baseline 37 ng/L (0-10) H 11/08/23 06:04 Troponin T 120 Minute 41.93 ng/L (0-10) H 11/08/23 07:54 Delta Troponin T 4.93 ABS# (0-10) 11/08/23 07:54 Troponin T Hi Sens 6Hr 40.22 ng/L (0-10) H 11/08/23 12:30 Troponin T Hi Sens 6Hr Delta 3.22 ng/L (0-12) 11/08/23 12:30 NT-Pro-B Natriuret Pep 834 pg/mL (0-125) H 11/08/23 06:04 Total Protein 6.6 g/dL (6.6-8.7) 11/09/23 03:34 Albumin 3.9 g/dL (3.5-5.2) 11/09/23 03:34 Globulin 2.7 g/dL (1.3-4.6) 11/09/23 03:34 Lipase 11 U/L (13-60) L 11/08/23 06:04 Vitamin B12 311 pg/mL (232-1245) 11/08/23 06:04 Folate 9.2 ng/mL (4.8-37.3) 11/08/23 06:04 TSH 7.91 uIU/mL (0.27-4.20) H 11/08/23 07:54 Vitals Last Vital Signs Temp 97.8 F 11/09/23 08:00 Pulse 89 11/09/23 08:00 Resp 18 11/09/23 08:00 BP 179/82 11/09/23 08:00 Pulse Ox 94 11/09/23 08:00 O2 Del Method Nasal Cannula 11/09/23 08:00 O2 Flow Rate 3 11/09/23 01:50 Discharge Plan Discharge Patient Disposition: Home Condition: Stable Prescriptions: New loratadine 10 mg capsule 10 mg PO DAILY Qty: 30 0RF pantoprazole 40 mg Tablet,Delayed Release (Dr/Ec) 40 mg PO DAILY Qty: 30 0RF Continued fluticasone propion-salmeterol [Advair Diskus] 500-50 mcg/dose blister with device 1 inh inhalation BID Qty: 60 3RF Spiriva Respimat 2.5 mcg/actuation mist 2 puff inhalation DAILY Qty: 4 3RF montelukast 4 mg tablet,chewable 8 mg PO DAILY Qty: 60 5RF baclofen 10 mg tablet 10 mg PO Q8H PRN (Reason: muscle spasm) Qty: 90 2RF lidocaine-prilocaine 2.5-2.5 % cream 1 applic topical DAILY PRN (Reason: pain) Qty: 50 3RF potassium chloride 20 mEq/15 mL liquid 10 meq PO BID Qty: 450 2RF metoprolol tartrate 25 mg tablet 25 mg PO BID Qty: 60 5RF apixaban 5 mg tablet 5 mg PO BID Qty: 180 2RF calcitriol [Rocaltrol] 0.5 mcg capsule 0.5 mcg PO DAILY Qty: 90 3RF albuterol sulfate [Ventolin HFA] 90 mcg/actuation HFA aerosol inhaler 2 puff INHALATION Q4H PRN (Reason: Shortness Of Breath) Qty: 18 4RF buprenorphine-naloxone [Suboxone] 8-2 mg Film 1 film SUBLINGUAL Q8H Hold Instructions: Resume on 08/08/23. Hold for one week. Rx Instructions: @6:30,15:30,23:30 cilostazol 50 mg tablet 50 mg PO BID bumetanide 1 mg tablet 1 mg PO BID roflumilast 500 mcg tablet 500 mcg PO DAILY magnesium oxide 400 mg magnesium Capsule 400 mg PO DAILY cholecalciferol (vitamin D3) 1,250 mcg (50,000 unit) capsule 50,000 unit PO Q7D Rx Instructions: on Tuesdays lidocaine 5 % adhesive patch,medicated 1 - 3 patch transdermal DAILY Rx Instructions: on for 12 hours off for 12 hours atorvastatin 40 mg tablet 20 mg PO .THREE TIMES A WEEK levothyroxine 75 mcg tablet See Rx Instructions .ROUTE .COMPLEX Rx Instructions: 75 mcg po WEDNESDAY THROUGH WEDNESDAY ONLY nitroglycerin [Nitrostat] 0.4 mg Tablet, Sublingual 0.4 mg SUBLINGUAL Q5M PRN (Reason: Chest Pain) Rx Instructions: do not exceed 3 doses per episode budesonide 0.5 mg/2 mL suspension for nebulization 0.5 mg inhalation BID PRN (Reason: unknown) Theraworx See Rx Instructions .ROUTE .COMPLEX Rx Instructions: Apply to affected area as needed per instructions on bottle. Discontinued amiodarone 200 mg tablet 200 mg PO DAILY Qty: 30 1RF Rx Instructions: start on Nov 04 diphenhydramine HCl [Benadryl] 25 mg Capsule 50 mg PO BID Discharge Orders: Discharge Order (Routine); Ordered 11/09/23 Ordered By: Rony Pope Referrals: Fei Laura DO [Primary Care Provider] - 11/11/23 11:00 am (This will be at the [facility]. ) Jessica Connelly FNP [Nurse Practitioner] - 2 weeks (We have notified your physician's clinic of the need for a follow-up appointment to be scheduled. If you have not heard from them within the next 2 business days, please call them directly. ) Discharge Diet: Cardiac Discharge Activity: Increase activity as tolerated Patient Instructions: Opioid Safety, Pain Management Activity Restrictions/Additional Instructions: Total medicine as prescribed Follow-up with primary care provider in 3 to 5 days See cardiology in 2 weeks Return for any concerns Discontinue Benadryl, start loratadine 10 mg daily Discharge Attestations Time Spent in Discharge Care*: greater than 30 min Quality Metrics Clinical Quality Measures [ No reported AMI, CVA or VTE this stay] Coding Level of Care Code 64783 Total time (in minutes) for Discharge: 36 Diagnoses Precordial pain R07.2 Chest pain type: precordial pain Centrilobular emphysema J43.2 COPD type: emphysema Emphysema type: centrilobular PVD (peripheral vascular disease) I73.9 Persistent atrial fibrillation I48.19 Atrial fibrillation type: persistent (not longstanding) Hx of carotid stenosis Z86.79 Chronic diastolic heart failure I50.32 Presence of permanent cardiac pacemaker Z95.0 Recurrent syncope R55
[2023-11-09 10:26] VITALS: BP 179/82; PULSE 85; RESP 17; O2SAT 90
--- NOTE | 2023-11-09 11:01 | PC.NURSE ---
Patient's port was deaccessed on 11/09/2023 at 1045. The port was flushed with 10ml's of NS. Patient refused the Heparing lock flush. Patient stated the cancer center does not use the heparin flush any more since she is on a blood thinner. Patient tolerated well. Manual pressure was held x 2 minutes and dressing is applied.
== END 2023-11-09 10:58 | disposition home or self-care (01) ==
LOC: ER 09:46 → CSU 21:47 → ER IP 11-09 06:01
PROVIDERS: Emergency Medicine; Admitting Provider Internal Medicine; Emergency Provider Family Medicine; PCP Family Medicine; Visit Provider Internal Medicine
DX: R07.2 Precordial pain (principal); J43.2 Centrilobular emphysema; I73.9 Peripheral vascular disease, unspecified; I48.19 Other persistent atrial fibrillation; Z86.79 Personal history of other diseases of the circulatory system; I50.32 Chronic diastolic (congestive) heart failure; Z95.0 Presence of cardiac pacemaker; R55 Syncope and collapse; Z85.118 Personal history of other malignant neoplasm of bronchus and lung; I25.10 Atherosclerotic heart disease of native coronary artery without angina pectoris; Z86.73 Personal history of transient ischemic attack (TIA), and cerebral infarction without residual deficits; J44.9 Chronic obstructive pulmonary disease, unspecified; F17.210 Nicotine dependence, cigarettes, uncomplicated; I08.3 Combined rheumatic disorders of mitral, aortic and tricuspid valves
CPT/HCPCS: 36591; 71045; 74176; 80053; 82550; 82607; 82728; 82746; 83540; 83550; 83690; 83735; 83880; 84443; 84484; 85025; 85610; 85730; 93005; 93308; 94640; 96372; 99285; G0378; J1650

== ENCOUNTER 2023-11-12 14:04 | Emergency (ER) | payer MEDICAID, SELFPAY ==
[2023-11-12] VITALS (8 sets, daily range): BP systolic 114–148; BP diastolic 56–67; PULSE 92–117; RESP 20–24; TEMP 37.7; O2SAT 90–99; BMI 23.2
--- NOTE | 2023-11-12 14:19 | XR_ITS ---
WS: [id number] Portable AP upright chest, 11/12/2023 Clinical Data: sob Comparison: Portable chest, 11/08/2023 Findings: No nodules, masses or effusions are seen. The heart is normal. The pulmonary vascularity is not increased. No pneumonia or pneumothorax is seen. The aortic arch and descending thoracic aorta s how calcification and tortuosity. The diaphragms are flattened. There is a single lead pacemaker unch anged in position. There are probable epidural stimulator leads overlying the mid thoracic space. The re is a right infusion catheter ending at the caval atrial junction. There are cholecystectomy clips in the right upper quadrant. Monitor leads are on the chest wall. Impression: Atherosclerosis and hyperinflation.
--- NOTE | 2023-11-12 14:20 | ECG_ITS ---
[facility] Test Date: 2023-11-12 Pat Name: Sakina Lombardi Department: Room: Gender: Female Certified Athletic Trainer: : 1950 Requested By: Ramiro Shankar Order Number: [id number] Barney MD: Chante Salmon M.D. Measurements Intervals [place] Rate: 87 P: 84 [place]: 143 QRS: 38 QRSD: 77 T: 68 QT: 373 QTc: 450 Interpretive Statements SINUS RHYTHM WITH SINUS ARRHYTHMIA Poor R wave progression Compared to ECG 11/08/2023 12:28:51 Myocardial infarct finding no longer present Electronically Signed On 11-13-2023 18:33:34 ADVERTISING ACCOUNT EXECUTIVE by Chante Salmon M.D. [id number]
--- NOTE | 2023-11-12 14:23 | ED_ITS ---
HPI - SOB/Dyspnea 2 General: Chief Complaint: Shortness of Breath/Dyspnea Stated Complaint: sob Time Seen by Provider: 11/12/23 14:14 Source: patient and EMS Mode of arrival: EMS Limitations: no limitations History of Present Illness: HPI Narrative: 73-year-old female has a long history of COPD she states that her heater did quit working last night and was arguing with her landlord states she had felt like she was inhaling fumes and got more short of breath. She has COPD is on 3 L at baseline she states she did not do a breathing treatment at home she is having some chest pain as well she states she feels improved currently she is 99% here on her 3 L patient given aspirin along with breathing treatment and route. Associated symptoms: Reports chest pain and fever(s); Deny abdominal pain, nausea or vomiting Review of Systems 2 Const: Reports: fever(s); Denies: chills, body aches or change in appetite ENMT: Denies: throat pain or dental pain Card: Reports: chest pain Resp: Reports: dyspnea and non-productive cough GI: Denies: abdominal pain, nausea, vomiting or diarrhea Musc: Denies: neck pain or back pain Skin/Breast: Denies: rash Neuro: Denies: headache(s) PFSH ED 2 PFSH: Medical History Left shoulder pain Avulsion fracture of left talus Skin tear of right upper arm without complication Orthopnea Sinus node dysfunction Sinus pause Bradycardia Orthostatic hypotension Hypovitaminosis D Seizure-like activity Syncopal episodes Nicotine dependence, cigarettes, with unspecified nicotine-induced disorders Sacral decubitus ulcer Chronic rhinosinusitis Infected epidermoid cyst Fall Lump of right breast Cor pulmonale Cor pulmonale Leg pain, left Lung cancer Acute exacerbation of chronic obstructive pulmonary disease Nicotine addiction Chronic respiratory failure with hypoxia Lung nodule Aortic cusp regurgitation Skin lesions Actinic keratosis due to exposure to sunlight Closed intertrochanteric fracture of right hip Smoking addiction Chronic pain Thyroid cancer SOB (shortness of breath) Dyslipidemia (high LDL; low HDL) History of COPD CVA (cerebral vascular accident) Benign essential hypertension CAD (coronary artery disease) Hx of carotid stenosis Leg pain, medial Neck strain COPD (chronic obstructive pulmonary disease) Plantar porokeratosis, acquired Surgical History Status post cardiac pacemaker procedure History of bronchoscopy History of hip surgery Hx of hysterectomy History of bilateral carpal tunnel release History of lumpectomy History of rectal surgery History of ankle surgery Status post open reduction and internal fixation (ORIF) of fracture H/O thyroidectomy S/P hardware removal Spine History of back surgery Port-A-Cath in place Family History Brother Leukemia Diabetes Lung disease Mother Anesthesia complication CAD (coronary artery disease) Father Bleeding disorder Clotting disorder CAD (coronary artery disease) Cancer Stroke Sister CAD (coronary artery disease) Chronic kidney disease (CKD) Lung disease Family/Other Diabetes Stroke Grandfather Suicide Denies family history of Dementia Social History Smoking and tobacco/nicotine status: current every day tobacco/nicotine user cigarettes Packs smoked per day: 0.5 Years cigarettes smoked: 55 [ Other cigarette details: Hx of 2 PPD x 50 Years, started at age 12] Quit status (tobacco/nicotine): considering quitting Second hand smoke exposure: Yes Alcohol intake: never Substance/Drug Use: current Other substance/drug use details: Couple of months ago Gummies Adopted: No Lives independently: Yes Household members: none Housing: Apartment Marital status: / Current occupational status: disabled Do you think of yourself as: Straight/Heterosexual Current gender identity: Female Course 2 Vital Signs: Vital signs: Vital Signs Temperature 99.9 F H 11/12/23 14:08 Pulse Rate 94 11/12/23 16:10 Respiratory Rate 20 H 11/12/23 16:10 Blood Pressure 120/67 11/12/23 16:10 Pulse Oximetry 94 11/12/23 16:10 Oxygen Delivery Me thod Nasal Cannula 11/12/23 14:52 Oxygen Flow Rate 2 11/12/23 14:52 MDM - SOB/Dyspnea Medical Decision Making Patient presents here with shortness of breath has a long history of COPD I spoke to her at length did offer admission for possible senior living placement as she seemed to been worsening and hard time to care for self. She states that she had like hospice and she wants to go home currently and try to get hospice set up will discharge at this time did put an order in to case management she is return if worsening. Medical Records I reviewed the patient's medical records. Lab Data I reviewed the patient's lab results. 11/12/23 14:25 11/12/23 14:25 Labs/Radiology: Laboratory Results WBC 9.04 10^3/uL (3.29-11.43) 11/12/23 14:25 RBC 3.27 10^6/uL (3.85-5.65) L 11/12/23 14:25 Hgb 9.20 g/dL (11.27-16.99) L 11/12/23 14:25 Hct 30.0 % (36-47) L 11/12/23 14:25 MCV 91.7 fl (85-98) 11/12/23 14:25 MCH 28.1 pg (27-33) 11/12/23 14:25 MCHC 30.7 g/dL (30-55) 11/12/23 14:25 RDW 17.0 % (12.1-15.1) H 11/12/23 14:25 Plt Count 216 10^3/cmm (157-399) 11/12/23 14:25 MPV 9.3 fL (7.4-10.4) 11/12/23 14:25 Neut % (Auto) 76.6 % 11/12/23 14:25 Lymph % (Auto) 13.3 % 11/12/23 14:25 [place] % (Auto) 7.3 % 11/12/23 14:25 Eos % (Auto) 2.1 % 11/12/23 14:25 Baso % (Auto) 0.3 % 11/12/23 14:25 Neut # (Auto) 6.92 10^3/uL (1.8-7.7) 11/12/23 14:25 Lymph # (Auto) 1.2 10^3/uL (0.8-4.8) 11/12/23 14:25 [place] # (Auto) 0.7 10^3/uL (0.2-0.9) 11/12/23 14:25 Eos # (Auto) 0.2 10^3/uL (0.0-0.8) 11/12/23 14:25 Baso # (Auto) 0.0 10^3/uL (0.0-0.1) 11/12/23 14:25 Nucleated RBC % (auto) 0 % 11/12/23 14:25 Nucleated RBCs # 0.0 /100WBC 11/12/23 14:25 Sodium 136 mmol/L (136-145) 11/12/23 14:25 Potassium 3.6 mmol/L (3.5-5.1) 11/12/23 14:25 Chloride 97 mmol/L (98-107) L 11/12/23 14:25 Carbon Dioxide 30 mmol/L (22-29) H 11/12/23 14:25 Anion Gap 12.6 (5-19) 11/12/23 14:25 BUN 13 mg/dL (8-23) 11/12/23 14:25 Creatinine 1.1 mg/dL (0.5-0.9) H 11/12/23 14:25 GFR Calculation Not Reportable 11/12/23 14:25 Glucose 128 mg/dL (65-115) H 11/12/23 14:25 Calculated Osmolality 284 mOsm/kg (285-295) L 11/12/23 14:25 Calcium 8.6 mg/dL (8.5-10.5) 11/12/23 14:25 Total Bilirubin 0.3 mg/dL (0.15-1.2) 11/12/23 14:25 AST 20 U/L (0-32) 11/12/23 14:25 ALT 10 U/L (0-33) 11/12/23 14:25 Alkaline Phosphatase 111 U/L (35-105) H 11/12/23 14:25 Troponin T Baseline 35 ng/L (0-10) H 11/12/23 14:25 Troponin T 120 Minute 38.93 ng/L (0-10) H 11/12/23 16:27 Delta Troponin T 3.93 ABS# (0-10) 11/12/23 16:27 NT-Pro-B Natriuret Pep 965 pg/mL (0-125) H 11/12/23 14:25 Total Protein 6.2 g/dL (6.6-8.7) L 11/12/23 14:25 Albumin 3.9 g/dL (3.5-5.2) 11/12/23 14:25 Globulin 2.3 g/dL (1.3-4.6) 11/12/23 14:25 Influenza Type A Ag negative (Negative) 11/12/23 14:38 Influenza Type B Ag negative (Negative) 11/12/23 14:38 SARS-CoV-2 Ag (Rapid) negative (Negative) 11/12/23 14:38 All radiology interpretation(s) finalized by discharge EKG Data EKG 1: I personally reviewed and interpreted this EKG as follows: EKG Interpretation Date: 11/12/23 EKG interpretation time: 14:20 Interpretation: nsr hr [address] or t wave abnormalities qrs 77 qtc 418 EKG 2: I personally reviewed and interpreted this EKG as follows: EKG Interpretation Date: 11/12/23 EKG interpretation time: 16:34 Interpretation: nsr hr [address] or t wave abnormalities qrs 77 qtc 434 Discharge Plan Discharge Patient Disposition: Home Clinical Impression: COPD (chronic obstructive pulmonary disease) Qualifiers: COPD type: emphysema Emphysema type: centrilobular Qualified Code(s): J43.2 - Centrilobular emphysema Condition: Stable Prescriptions: No Action levothyroxine 75 mcg tablet See Rx Instructions .ROUTE .COMPLEX Qty: 30 5RF Rx Instructions: 75 mcg po once a day on mon,tues,wed,thurs and fri fluticasone propion-salmeterol [Advair Diskus] 500-50 mcg/dose blister with device 1 inh inhalation BID Qty: 60 3RF Spiriva Respimat 2.5 mcg/actuation mist 2 puff inhalation DAILY Qty: 4 3RF montelukast 4 mg tablet,chewable 8 mg PO DAILY Qty: 60 5RF baclofen 10 mg tablet 10 mg PO Q8H PRN (Reason: muscle spasm) Qty: 90 2RF lidocaine-prilocaine 2.5-2.5 % cream 1 applic topical DAILY PRN (Reason: pain) Qty: 50 3RF potassium chloride 20 mEq/15 mL liquid 10 meq PO BID Qty: 450 2RF metoprolol tartrate 25 mg tablet 25 mg PO BID Qty: 60 5RF apixaban 5 mg tablet 5 mg PO BID Qty: 180 2RF calcitriol [Rocaltrol] 0.5 mcg capsule 0.5 mcg PO DAILY Qty: 90 3RF albuterol sulfate [Ventolin HFA] 90 mcg/actuation HFA aerosol inhaler 2 puff INHALATION Q4H PRN (Reason: Shortness Of Breath) Qty: 18 4RF buprenorphine-naloxone [Suboxone] 8-2 mg Film 1 film SUBLINGUAL Q8H Hold Instructions: Resume on 08/08/23. Hold for one week. Rx Instructions: @6:00,15:00,23:00 cilostazol 50 mg tablet 50 mg PO BID bumetanide 1 mg tablet 1 mg PO BID roflumilast 500 mcg tablet 500 mcg PO DAILY pantoprazole 40 mg Tablet,Delayed Release (Dr/Ec) 40 mg PO DAILY Qty: 30 0RF loratadine 10 mg capsule 10 mg PO DAILY Qty: 30 0RF cholecalciferol (vitamin D3) 1,250 mcg (50,000 unit) capsule 50,000 unit PO Q7D Rx Instructions: on wednesday for 12 weeks magnesium oxide 400 mg magnesium Capsule 400 mg PO DAILY lidocaine 5 % adhesive patch,medicated 1 - 3 patch transdermal DAILY PRN (Reason: Pain) Rx Instructions: on for 12 hours off for 12 hours atorvastatin 40 mg tablet 20 mg PO .THREE TIMES A WEEK nitroglycerin [Nitrostat] 0.4 mg Tablet, Sublingual 0.4 mg SUBLINGUAL Q5M PRN (Reason: Chest Pain) Rx Instructions: do not exceed 3 doses per episode budesonide 0.5 mg/2 mL suspension for nebulization 0.5 mg inhalation BID PRN (Reason: unknown) Discharge Orders: Discharge ED (Routine); Ordered 11/12/23 Ordered By: Ramiro Shankar Referrals: Fei Laura DO [Primary Care Provider] - 1-3 days Discharge Diet: Advance as tolerated Discharge Activity: Resume usual activity Patient Instructions: COPD (Chronic Obstructive Pulmonary Disease) (ED) Coding Level of Care Code ED Cleaning Staff Supervisor for Delmer Ray
[2023-11-12 14:45] LABS: Basophils % 0.3 %; Eosinophils # 0.2 10^3/uL (0.0-0.8); Eosinophils % 2.1 %; Lymphocytes # 1.2 10^3/uL (0.8-4.8); Lymphocytes % 13.3 %; Mean Corpuscular HGB Conc 30.7 g/dL (30-55); Mean Corpuscular Hemoglobin 28.1 pg (27-33); Mean Corpuscular Volume 91.7 fl (85-98); Mean Platelet Volume 9.3 fL (7.4-10.4); Monocytes # 0.7 10^3/uL (0.2-0.9); Monocytes % 7.3 %; Neutrophils # 6.92 10^3/uL (1.8-7.7); Neutrophils % 76.6 %; Nucleated Red Blood Cells % 0 %; Platelet Count 216 10^3/cmm (157-399); Red Blood Count 3.27 10^6/uL (3.85-5.65); White Blood Count 9.04 10^3/uL (3.29-11.43)
[2023-11-12] MEDS: ipratropium-albuterol 3 mL Neb INHALATION (14:50)
[2023-11-12] MEDS: acetaminophen 650 mg/20.3 mL UDC PO (15:01)
[2023-11-12 15:05] LABS: Troponin(5th) Baseline 35 ng/L (0-10)
[2023-11-12 15:09] LABS: Influenza A by IFA negative (Negative); Influenza B by IFA negative (Negative); SARS Covid-2 Antigen negative (Negative)
[2023-11-12 15:12] LABS: Alanine Aminotransferase 10 U/L (0-33); Albumin Level 3.9 g/dL (3.5-5.2); Alkaline Phosphatase 111 U/L (35-105); Anion Gap 12.6 (5-19); Aspartate Amino Transferase 20 U/L (0-32); Blood Urea Nitrogen 13 mg/dL (8-23); Calcium 8.6 mg/dL (8.5-10.5); Carbon Dioxide 30 mmol/L (22-29); Chloride 97 mmol/L (98-107); Creatinine Clr Calc Pharmacy 36.9488; Globulin 2.3 g/dL (1.3-4.6); Glucose 128 mg/dL (65-115); NT Pro B Type Natriuretic Pept 965 pg/mL (0-125); Osmolality Calculated 284 mOsm/kg (285-295); Potassium 3.6 mmol/L (3.5-5.1); Sodium 136 mmol/L (136-145); Total Bilirubin 0.3 mg/dL (0.15-1.2); Total Protein 6.2 g/dL (6.6-8.7)
--- NOTE | 2023-11-12 15:56 | PC.NURSE ---
ATIVAN VERIFIED WITH SECOND RN REJI PRECIADO RN
--- NOTE | 2023-11-12 16:34 | ECG_ITS ---
[facility] Test Date: 2023-11-12 Pat Name: Sakina Lombardi Department: Room: Gender: Female Order Booker: : 1950 Requested By: Ramiro Shankar Order Number: [id number] Reading MD: Chante Salmon M.D. Measurements Intervals [place] Rate: 90 P: 83 [place]: 144 QRS: 51 QRSD: 77 T: 69 QT: 386 QTc: 475 Interpretive Statements SINUS RHYTHM WITH OCCASIONAL SUPRAVENTRICULAR PREMATURE COMPLEXES SEPTAL MYOCARDIAL INFARCTION , OF INDETERMINATE AGE [40+ ms Q WAVE IN V1/V2] Compared to ECG 11/12/2023 14:20:57 Myocardial infarct finding now present Sinus arrhythmia no longer present Electronically Signed On 11-13-2023 18:47:43 MARINE OPERATIONS COORDINATOR by Chante Salmon M.D. [id number]
[2023-11-12 16:53] LABS: Troponin 5 2HR 38.93 ng/L (0-10); Troponin 5 2HR Delta 3.93 ABS# (0-10)
--- NOTE | 2023-11-12 17:23 | DCPLANNER ---
I sent a message to Case management on 11/12/23 at [phone] for the hospice consult help
--- NOTE | 2023-11-16 12:09 | PC.SOCIAL ---
Hospice Called and discussed with patient hospice consult. She is not interested at this time. She wants someone to stay the night with her. Information provided to patient for [facility] hospice.
== END 2023-11-12 17:36 | disposition home or self-care (01) ==
PROVIDERS: Emergency Provider Emergency Medicine; PCP Family Medicine
DX: J43.2 Centrilobular emphysema (principal); Z11.52 Encounter for screening for COVID-19; F17.210 Nicotine dependence, cigarettes, uncomplicated; Z95.0 Presence of cardiac pacemaker; Z85.118 Personal history of other malignant neoplasm of bronchus and lung; Z85.850 Personal history of malignant neoplasm of thyroid; E78.5 Hyperlipidemia, unspecified; J44.9 Chronic obstructive pulmonary disease, unspecified; Z86.73 Personal history of transient ischemic attack (TIA), and cerebral infarction without residual deficits; I10 Essential (primary) hypertension; I25.10 Atherosclerotic heart disease of native coronary artery without angina pectoris
CPT/HCPCS: 36415; 71045; 80053; 83880; 84484; 85025; 87426; 87804; 93005; 94640; 96374; 99285; J2060

== ENCOUNTER → 2023-11-17 13:52 | Outpatient (BNVA) | payer MEDICAID, SELFPAY | PROVIDERS: PCP Family Medicine; Visit Provider Nurse Practitioner Family | DX: Z09 Encounter for follow-up examination after completed treatment for conditions other than malignant neoplasm (principal) | CPT/HCPCS: 99213 ==

== ENCOUNTER → 2023-11-25 16:00 | Outpatient (BNVA) | payer MEDICAID, SELFPAY | PROVIDERS: PCP Family Medicine; Visit Provider Family Medicine | DX: E03.9 Hypothyroidism, unspecified (principal); E55.9 Vitamin D deficiency, unspecified; E87.6 Hypokalemia; T50.2X5A Adverse effect of carbonic-anhydrase inhibitors, benzothiadiazides and other diuretics, initial encounter; E83.42 Hypomagnesemia; E83.39 Other disorders of phosphorus metabolism | CPT/HCPCS: 80048; 82306; 83735; 84100; 84439; 84443; 85027 ==

== ENCOUNTER 2023-12-08 15:40 | Oncology outpatient (recurring) (ONCR) | payer MEDICAID, SELFPAY | END 2023-12-29 23:59 | disposition home or self-care (01) | PROVIDERS: PCP Family Medicine; Visit Provider Internal Medicine Medical Oncology | DX: Z45.2 Encounter for adjustment and management of vascular access device (principal) | CPT/HCPCS: 96523; J1642 ==

== ENCOUNTER 2024-01-03 14:54 | Outpatient (CLI) | payer MEDICAID, SELFPAY ==
--- NOTE | 2024-01-03 14:58 | MM_ITS ---
WS: [id number] DIAGNOSTIC BILATERAL DIGITAL BREAST TOMOSYNTHESIS MAMMOGRAPHY WITH CAD RIGHT breast ultrasound, limited HISTORY: N63.10 - Unspecified lump in the right breast, unspecifie... COMPARISON: 10/12/2022, 05/16/2021 and 08/31/2019 TECHNIQUE: Bilateral craniocaudad, mediolateral oblique, and mediolateral views are submitted with to mosynthesis and SM. Spot compression RIGHT CC. Computer aided detection utilized. Breast composition: The breasts are heterogeneously dense, which may obscure small masses. Benign letty cifications in each breast. There is no breast abnormality in the region of the palpable marker. RIGHT breast ultrasound, limited. Ultrasound is directed to 10:00 at the palpable abnormality. There is no mass or change in echogenici ty seen by ultrasound. No cystic or solid mass. No skin thickening. IMPRESSION: MM/[place] [id number] BI-RADS: 2-Benign FOLLOW UP: 1 Year Follow-up LACK OF RADIOGRAPHIC EVIDENCE OF MALIGNANCY SHOULD NOT DELAY BIOPSY IF A CLINIC ALLY SUSPICIOUS MASS IS PRESENT.
== END 2024-01-03 14:55 | disposition home or self-care (01) ==
LOC: RAD 14:55
PROVIDERS: PCP Family Medicine; Visit Provider Family Medicine
DX: N63.11 Unspecified lump in the right breast, upper outer quadrant (principal); C34.90 Malignant neoplasm of unspecified part of unspecified bronchus or lung; R92.333 Mammographic heterogeneous density, bilateral breasts; R92.1 Mammographic calcification found on diagnostic imaging of breast
CPT/HCPCS: 76642; 77062; G0279

== ENCOUNTER 2024-01-26 14:45 | Oncology outpatient (recurring) (ONCR) | payer MEDICAID, SELFPAY ==
[2024-01-26 16:44] LABS: Basophils # 0.1 10^3/uL (0.0-0.1); Basophils % 0.5 %; Eosinophils # 0.2 10^3/uL (0.0-0.8); Lymphocytes # 1.5 10^3/uL (0.8-4.8); Lymphocytes % 15.8 %; Mean Corpuscular Hemoglobin 27.4 pg (27-33); Mean Corpuscular Volume 91.4 fl (85-98); Monocytes # 0.8 10^3/uL (0.2-0.9); Monocytes % 8.8 %; Neutrophils # 6.64 10^3/uL (1.8-7.7); Neutrophils % 72.4 %; Nucleated Red Blood Cells % 0 %; Platelet Count 194 10^3/cmm (157-399); Red Cell Distribution Width 16.3 % (12.1-15.1); White Blood Count 9.18 10^3/uL (3.29-11.43)
[2024-01-26 17:24] LABS: 25 Hydroxy Vitamin D 55 ng/mL (30-100); Alanine Aminotransferase 8 U/L (0-33); Albumin Level 3.7 g/dL (3.5-5.2); Alkaline Phosphatase 109 U/L (35-105); Anion Gap 12.1 (5-19); Aspartate Amino Transferase 23 U/L (0-32); Blood Urea Nitrogen 14 mg/dL (8-23); Calcium 8.8 mg/dL (8.5-10.5); Carbon Dioxide 33 mmol/L (22-29); Chloride 97 mmol/L (98-107); Ferritin 21 ng/mL (15-150); Globulin 2.7 g/dL (1.3-4.6); Glucose 105 mg/dL (65-115); Iron 49 ug/dL (37-145); Magnesium 2.1 mg/dL (1.7-2.3); Osmolality Calculated 287 mOsm/kg (285-295); Phosphorus 4.7 mg/dL (2.5-4.5); Potassium 4.1 mmol/L (3.5-5.1); Sodium 138 mmol/L (136-145); Thyroid Stimulating Hormone 17.62 uIU/mL (0.27-4.20); Total Bilirubin 0.3 mg/dL (0.15-1.2); Total Protein 6.4 g/dL (6.6-8.7); Vitamin B12 324 pg/mL (232-1245)
[2024-01-26 20:01] LABS: Free T4 Free Thyroxine 1.15 ng/dL (0.82-1.77)
== END 2024-01-27 23:59 | disposition home or self-care (01) ==
PROVIDERS: PCP Family Medicine; Visit Provider Internal Medicine Medical Oncology
DX: E03.9 Hypothyroidism, unspecified (principal); E55.9 Vitamin D deficiency, unspecified; E87.6 Hypokalemia; T50.2X5A Adverse effect of carbonic-anhydrase inhibitors, benzothiadiazides and other diuretics, initial encounter; E83.42 Hypomagnesemia; D56.4 Hereditary persistence of fetal hemoglobin [HPFH]; E83.39 Other disorders of phosphorus metabolism
CPT/HCPCS: 36591; 80053; 82306; 82607; 82728; 83540; 83735; 84100; 84439; 84443; 85025; 96523; J1642

== ENCOUNTER 2024-01-28 14:20 | Outpatient (CLI) | payer MEDICAID, SELFPAY ==
--- NOTE | 2024-01-28 14:28 | XR_ITS ---
WS: [id number] Exam: XR hip LT 2-3V wo/w pel* [id number] Date/Time of Exam: 01/28/2024 2:58 PM Reason For Exam: M25.552 - Pain in left hip Comparison 08/05/2023. No fracture or dislocation. The joint compartments relatively well-maintained. Vascular and nonspecif ic soft tissue calcifications. IMPRESSION: 1. No acute hip fracture or other significant finding.
== END 2024-01-28 14:21 | disposition home or self-care (01) ==
LOC: RAD 14:24
PROVIDERS: PCP Family Medicine; Visit Provider Family Medicine
DX: M25.552 Pain in left hip (principal)
CPT/HCPCS: 73502

== ENCOUNTER → 2024-02-02 14:03 | Outpatient (BNVA) | payer MEDICAID, SELFPAY | PROVIDERS: PCP Family Medicine; Visit Provider Internal Medicine | DX: Z45.010 Encounter for checking and testing of cardiac pacemaker pulse generator [battery] (principal) | CPT/HCPCS: 93296 ==

== ENCOUNTER 2024-02-08 16:21 | Outpatient (CLI) | payer MEDICAID, SELFPAY ==
--- NOTE | 2024-02-08 16:22 | CTR_ITS ---
PROCEDURE INFORMATION: Exam: CT Chest Without Contrast; Diagnostic Exam date and time: 02/08/2024 4:39 PM Age: 73 years old Clinical indication: Condition or disease; Lung condition and disease; Cancer of the lung; Bilateral; Unspecified; Prior surgery; Surgery date: 6+ months; Surgery type: Port, pacemaker, stimulator; Additional info: Lung cancer, schedule in dec 2023 TECHNIQUE: Imaging protocol: Diagnostic computed tomography of the chest without contrast. Radiation optimization: All CT scans at this facility use at least one of these dose optimization techniques: automated exposure control; mA and/or kV adjustment per patient size (includes targeted exams where dose is matched to clinical indication); or iterative reconstruction. COMPARISON: CT chest wo con [id number] 07/27/2023 12:49 PM RADIATION DOSE METRICS: Total DLP (mGy-cm): 248.79 FINDINGS: Tubes, catheters and devices: Multi lead pacemaker/defibrillator. Infusion port terminates in the right atrium. Lungs: Centrilobular emphysema. Mild atelectasis in the right lower lobe. Minimal fibrosis in the right lower lobe, the nodularity present previously has almost entirely resolved. Pleural spaces: Unremarkable. No pneumothorax. No pleural effusion. Heart: Unremarkable. No cardiomegaly. No pericardial effusion. Coronary arteries: Coronary artery calcifications. Lymph nodes: Heavily calcified right infrahilar mass/lymph node. Vasculature: Thoracic aortic calcifications. Gallbladder and bile ducts: Cholecystectomy. Bones/joints: Unremarkable. No acute fracture. Soft tissues: Unremarkable. CT/CT chest wo con [id number] IMPRESSION: 1. Extensive chronic changes. 2. Improved nodular infiltrates. COMMENTS: The presence of pulmonary emphysema on CT is an independent risk factor for lung cancer. In the absence of a history or active diagnosis of lung cancer, it is recommended that this patient with emphysema be evaluated for enrollment in a low dose CT lung cancer screening program.
== END 2024-02-08 16:22 | disposition home or self-care (01) ==
LOC: RAD 16:21
PROVIDERS: PCP Family Medicine; Visit Provider Internal Medicine Pulmonary Disease
DX: J96.11 Chronic respiratory failure with hypoxia (principal); F17.200 Nicotine dependence, unspecified, uncomplicated; C34.90 Malignant neoplasm of unspecified part of unspecified bronchus or lung; J43.2 Centrilobular emphysema
CPT/HCPCS: 71250

== ENCOUNTER 2024-03-05 13:50 | Emergency (ER) | payer MEDICAID, SELFPAY ==
[2024-03-05 14:05] VITALS: BP 100/52; PULSE 73; RESP 18; TEMP 36.6; O2SAT 92; BMI 16.6
[2024-03-05 14:54] LABS: Basophils % 0.4 %; Eosinophils # 0.4 10^3/uL (0.0-0.8); Eosinophils % 3.9 %; Hematocrit 30.9 % (36-47); Lymphocytes # 1.7 10^3/uL (0.8-4.8); Lymphocytes % 18.1 %; Mean Corpuscular HGB Conc 30.1 g/dL (30-55); Mean Corpuscular Hemoglobin 28.5 pg (27-33); Mean Corpuscular Volume 94.8 fl (85-98); Mean Platelet Volume 9.2 fL (7.4-10.4); Monocytes % 10.4 %; Neutrophils # 6.26 10^3/uL (1.8-7.7); Neutrophils % 65.9 %; Nucleated Red Blood Cells % 0 %; Platelet Count 226 10^3/cmm (157-399); Red Blood Count 3.26 10^6/uL (3.85-5.65); Red Cell Distribution Width 16.5 % (12.1-15.1)
[2024-03-05 15:10] LABS: Alanine Aminotransferase 12 U/L (0-33); Albumin Level 3.5 g/dL (3.5-5.2); Alkaline Phosphatase 109 U/L (35-105); Anion Gap 14.4 (5-19); Aspartate Amino Transferase 17 U/L (0-32); Blood Urea Nitrogen 18 mg/dL (8-23); Calcium 9.3 mg/dL (8.5-10.5); Carbon Dioxide 27 mmol/L (22-29); Chloride 99 mmol/L (98-107); Creatinine Clr Calc Pharmacy 36.9862; Globulin 2.9 g/dL (1.3-4.6); Glucose 123 mg/dL (65-115); Osmolality Calculated 285 mOsm/kg (285-295); Potassium 4.4 mmol/L (3.5-5.1); Sodium 136 mmol/L (136-145); Total Bilirubin 0.2 mg/dL (0.15-1.2); Total Protein 6.4 g/dL (6.6-8.7)
--- NOTE | 2024-03-05 15:30 | W.ED.FEMALGU ---
HPI - Female Genitourinary General: Chief complaint: Urogenital-Female Stated complaint: sent by dr vaginal bleeding Time Seen by Provider: 03/05/24 14:28 History of Present Illness: 73-year-old female presents to the emergency department with complaints of noticing that she is having blood in her urine for the previous 1 week she states has become much worse since last night and has continued throughout the day today. She denies abdominal pain nausea or vomiting. She states that she does take Eliquis for her atrial fibrillation she does have a history of lung cancer and did receive radiation therapy at that time. She states she is not actively on or taking any chemotherapy treatments. She does have a Port-A-Cath to her right anterior chest wall that she states was placed because of poor venous access. She denies known injury or trauma. She does endorse dysuria with her urination. She is chronically on 3 L supplemental nasal cannula. Review of Systems General: Reports: 10 or more systems reviewed and unremarkable except in HPI and below : Reports: dysuria and hematuria PFSH ED PFSH: Medical History Acute exacerbation of chronic obstructive pulmonary disease Lump of right breast Lung cancer Left shoulder pain Avulsion fracture of left talus Skin tear of right upper arm without complication Orthopnea Sinus node dysfunction Sinus pause Bradycardia Orthostatic hypotension Hypovitaminosis D Seizure-like activity Syncopal episodes Nicotine dependence, cigarettes, with unspecified nicotine-induced disorders Sacral decubitus ulcer Chronic rhinosinusitis Infected epidermoid cyst Fall Cor pulmonale Cor pulmonale Leg pain, left Nicotine addiction Chronic respiratory failure with hypoxia Lung nodule Aortic cusp regurgitation Skin lesions Actinic keratosis due to exposure to sunlight Closed intertrochanteric fracture of right hip Smoking addiction Chronic pain Thyroid cancer SOB (shortness of breath) Dyslipidemia (high LDL; low HDL) History of COPD CVA (cerebral vascular accident) Benign essential hypertension CAD (coronary artery disease) Hx of carotid stenosis Leg pain, medial Neck strain COPD (chronic obstructive pulmonary disease) Plantar porokeratosis, acquired Surgical History Status post cardiac pacemaker procedure History of bronchoscopy History of hip surgery Hx of hysterectomy History of bilateral carpal tunnel release History of lumpectomy History of rectal surgery History of ankle surgery Status post open reduction and internal fixation (ORIF) of fracture H/O thyroidectomy S/P hardware removal Spine History of back surgery Port-A-Cath in place Family History Brother Leukemia Diabetes Lung disease Mother Anesthesia complication CAD (coronary artery disease) Father Bleeding disorder Clotting disorder CAD (coronary artery disease) Cancer Stroke Sister CAD (coronary artery disease) Chronic kidney disease (CKD) Lung disease Family/Other Diabetes Stroke Grandfather Suicide Denies family history of Dementia Social History Smoking and tobacco/nicotine status: current every day tobacco/nicotine user cigarettes Packs smoked per day: 0.5 Years cigarettes smoked: 55 [ Other cigarette details: Hx of 2 PPD x 50 Years, started at age 12] Quit status (tobacco/nicotine): considering quitting Second hand smoke exposure: Yes Alcohol intake: never Substance/Drug Use: current Other substance/drug use details: Couple of months ago Gummies Adopted: No Lives independently: Yes Household members: none Housing: Apartment Marital status: / Current occupational status: disabled Do you think of yourself as: Straight/Heterosexual Current gender identity: Female Physical Exam Narrative: EXAM NARRATIVE: Constitutional: Thin, frail, does not appear acutely ill at present. Vital signs as documented. No acute distress at present. Alert and oriented-to person, place, time and situation. Head, eyes, ears, nose, mouth, throat: Normocephalic, atraumatic. Pupils-equal, round, reactive to light. No scleral icterus. Normal-appearing external ears. Normal appearing nasal turbinates, no drainage. No obvious oral lesions, posterior oropharynx without erythema or exudates. Neck: Supple, trachea is midline, no lymphadenopathy, no jugular venous distension, thyromegaly, or carotid bruits. Carotid upstrokes are brisk bilaterally. Lungs: clear to auscultation to all lung mata. Symmetrical rise and fall of chest, no obvious signs of increased work of breathing at present. Thorax: Symmetrical rise and fall, prominent barrel chest noted, right anterior chest wall with Port-A-Cath no obvious signs of infection. Cardiac: Atrial fibrillation currently rate controlled. Positive S1, S2. No murmurs, rubs or gallops that I can appreciate Abdomen: Soft, non-tender to palpation, normal active bowel sounds to all quadrants. No palpable masses, no organomegaly and abdominal bruits. Extremities: 2+ pulses in the upper extremities that are equal bilaterally, 2+ pulses in the lower extremities that are equal bilaterally. Non-edematous. Moves all extremities well, sensation to all extremities are noted. Skin: Warm, dry, intact. Course Vital Signs: Vital signs: Vital Signs Temperature 97.8 F 03/05/24 14:05 Pulse Rate 73 03/05/24 14:05 Respiratory Rate 18 03/05/24 14:05 Blood Pressure 100/52 03/05/24 14:05 Pulse Oximetry 92 03/05/24 14:05 Oxygen Delivery Me thod Nasal Cannula 03/05/24 14:05 Oxygen Flow Rate 3 03/05/24 14:05 MDM - Female Medical Decision Making Physical exam completed and documented I will obtain a CBC and CMP I suspect most likely her hematuria is result from her Eliquis but given her previous history of tobacco use and lung cancer there is concern for transitional cell carcinoma/bladder cancer. I did obtain a urinalysis for evaluation for UTI and will ultimately have her follow-up with urology. Differential diagnosis to include UTI, transitional cell carcinoma, medication side effect, renal calculi, cystitis, dehydration, anemia of chronic disease, Differential Diagnosis Likely calculus of kidney Medical Records I reviewed the patient's medical records. Lab Data I reviewed the patient's lab results. 03/05/24 14:34 03/05/24 14:34 Laboratory Results WBC 9.50 10^3/uL (3.29-11.43) 03/05/24 14:34 RBC 3.26 10^6/uL (3.85-5.65) L 03/05/24 14:34 Hgb 9.30 g/dL (11.27-16.99) L 03/05/24 14:34 Hct 30.9 % (36-47) L 03/05/24 14:34 MCV 94.8 fl (85-98) 03/05/24 14:34 MCH 28.5 pg (27-33) 03/05/24 14:34 MCHC 30.1 g/dL (30-55) 03/05/24 14:34 RDW 16.5 % (12.1-15.1) H 03/05/24 14:34 Plt Count 226 10^3/cmm (157-399) 03/05/24 14:34 MPV 9.2 fL (7.4-10.4) 03/05/24 14:34 Neut % (Auto) 65.9 % 03/05/24 14:34 Lymph % (Auto) 18.1 % 03/05/24 14:34 [place] % (Auto) 10.4 % 03/05/24 14:34 Eos % (Auto) 3.9 % 03/05/24 14:34 Baso % (Auto) 0.4 % 03/05/24 14:34 Neut # (Auto) 6.26 10^3/uL (1.8-7.7) 03/05/24 14:34 Lymph # (Auto) 1.7 10^3/uL (0.8-4.8) 03/05/24 14:34 [place] # (Auto) 1.0 10^3/uL (0.2-0.9) H 03/05/24 14:34 Eos # (Auto) 0.4 10^3/uL (0.0-0.8) 03/05/24 14:34 Baso # (Auto) 0.0 10^3/uL (0.0-0.1) 03/05/24 14:34 Nucleated RBC % (auto) 0 % 03/05/24 14:34 Nucleated RBCs # 0.0 /100WBC 03/05/24 14:34 Sodium 136 mmol/L (136-145) 03/05/24 14:34 Potassium 4.4 mmol/L (3.5-5.1) 03/05/24 14:34 Chloride 99 mmol/L (98-107) 03/05/24 14:34 Carbon Dioxide 27 mmol/L (22-29) 03/05/24 14:34 Anion Gap 14.4 (5-19) 03/05/24 14:34 BUN 18 mg/dL (8-23) 03/05/24 14:34 Creatinine 0.9 mg/dL (0.5-0.9) 03/05/24 14:34 GFR Calculation Not Reportable 03/05/24 14:34 Glucose 123 mg/dL (65-115) H 03/05/24 14:34 Calculated Osmolality 285 mOsm/kg (285-295) 03/05/24 14:34 Calcium 9.3 mg/dL (8.5-10.5) 03/05/24 14:34 Total Bilirubin 0.2 mg/dL (0.15-1.2) 03/05/24 14:34 AST 17 U/L (0-32) 03/05/24 14:34 ALT 12 U/L (0-33) 03/05/24 14:34 Alkaline Phosphatase 109 U/L (35-105) H 03/05/24 14:34 Total Protein 6.4 g/dL (6.6-8.7) L 03/05/24 14:34 Albumin 3.5 g/dL (3.5-5.2) 03/05/24 14:34 Globulin 2.9 g/dL (1.3-4.6) 03/05/24 14:34 Urine Color Brown (Yellow) A 03/05/24 14:54 Urine Appearance Cloudy (CLEAR) A 03/05/24 14:54 Urine pH 5 (5-7) 03/05/24 14:54 Ur Specific [place] 1.020 (1.005-1.030) 03/05/24 14:54 Urine Protein 3+ (Negative) H 03/05/24 14:54 Urine Glucose (UA) Norm (Normal) 03/05/24 14:54 Urine Ketones 1+ (Negative) H 03/05/24 14:54 Urine Blood 3+ (Negative) H 03/05/24 14:54 Urine Nitrate Positive (Negative) H 03/05/24 14:54 Urine Bilirubin 1+ (Negative) H 03/05/24 14:54 Urine Urobilinogen Norm mg/dL (Negative) 03/05/24 14:54 Ur Leukocyte Esterase Trace (Negative) H 03/05/24 14:54 Urine RBC Too numerous to cnt /hpf (0-2) H 03/05/24 14:54 Urine WBC 5-10 /hpf (0-5) H 03/05/24 14:54 Ur Squamous Epith Cells None /hpf (0-5) 03/05/24 14:54 Amorphous Sediment Not Reportable 03/05/24 14:54 Urine Bacteria 2+ /hpf (NONE) H 03/05/24 14:54 No radiology studies performed this visit Discharge Plan Discharge Patient Disposition: Home Clinical Impression: Acute UTI Hematuria Qualifiers: Hematuria type: unspecified type Qualified Code(s): R31.9 - Hematuria, unspecified Condition: Stable Prescriptions: New nitrofurantoin monohyd/m-cryst [Macrobid] 100 mg capsule 100 mg PO Q12H 7 Days Qty: 14 0RF Rx Instructions: must administer with a meal/food No Action pantoprazole 40 mg tablet,delayed release (DR/EC) 40 mg PO DAILY Qty: 90 3RF metoprolol tartrate 25 mg tablet 25 mg PO BID Qty: 60 5RF loratadine 10 mg capsule 10 mg PO DAILY Qty: 30 11RF fluticasone propion-salmeterol [Advair Diskus] 500-50 mcg/dose blister with device 1 inh inhalation BID Qty: 60 3RF Spiriva Respimat 2.5 mcg/actuation mist 2 puff inhalation DAILY Qty: 4 3RF lidocaine-prilocaine 2.5-2.5 % cream 1 applic topical DAILY PRN (Reason: pain) Qty: 50 3RF potassium chloride 20 mEq/15 mL liquid 10 meq PO BID Qty: 450 2RF apixaban 5 mg tablet 5 mg PO BID Qty: 180 2RF levothyroxine 25 mcg tablet 37.5 mcg PO DAILY Qty: 90 1RF hydrocodone-acetaminophen 7.5-325 mg tablet 1 tab PO Q8H 30 Days Qty: 90 0RF ondansetron 4 mg tablet,disintegrating 4 mg PO Q8H PRN (Reason: nausea and vomiting) Qty: 30 1RF diphenoxylate-atropine [Lomotil] 2.5-0.025 mg tablet 1 tab PO BID PRN (Reason: diarrhea) Qty: 20 0RF linezolid 600 mg tablet 600 mg PO BID 6 Days Qty: 12 0RF calcitriol [Rocaltrol] 0.5 mcg capsule 0.5 mcg PO DAILY Qty: 90 3RF albuterol sulfate 90 mcg/actuation HFA aerosol inhaler 2 puff inhalation Q4H PRN (Reason: shortness of breath or wheezing) Qty: 6.7 3RF baclofen 10 mg tablet 10 mg PO Q8H PRN (Reason: muscle spasm) Qty: 90 2RF montelukast 4 mg tablet,chewable 8 mg PO DAILY Qty: 60 5RF cilostazol 50 mg tablet 50 mg PO BID bumetanide 1 mg tablet 1 mg PO BID roflumilast 500 mcg tablet 500 mcg PO DAILY cholecalciferol (vitamin D3) 1,250 mcg (50,000 unit) capsule 50,000 unit PO Q7D Rx Instructions: on wednesday for 12 weeks magnesium oxide 400 mg magnesium Capsule 400 mg PO DAILY lidocaine 5 % adhesive patch,medicated 1 - 3 patch transdermal DAILY PRN (Reason: Pain) Rx Instructions: on for 12 hours off for 12 hours atorvastatin 40 mg tablet 20 mg PO .THREE TIMES A WEEK nitroglycerin [Nitrostat] 0.4 mg Tablet, Sublingual 0.4 mg SUBLINGUAL Q5M PRN (Reason: Chest Pain) Rx Instructions: do not exceed 3 doses per episode budesonide 0.5 mg/2 mL suspension for nebulization 0.5 mg inhalation BID PRN (Reason: unknown) Discharge Orders: Discharge ED (Routine); Ordered 03/05/24 Ordered By: Forest Farrell Referrals: Fei Laura DO [Primary Care Provider] - Discharge Diet: Usual diet Discharge Activity: Resume usual activity Patient Instructions: Opioid Safety, Pain Management Activity Restrictions/Additional Instructions: Activity Restrictions/Additional Instructions: Thank you for choosing [facility] for your healthcare needs today. Please realize that you were seen in the Emergency Department and that we are providing you with an emergency medical screening exam and this may not be a complete and all inclusive of all the testing and or medical work-up that you may need to determine your ailment or severity of your illness. It is very important that you follow-up as instructed with your Primary care provider or Specialist for additional evaluation and to discuss your medical treatment plan. You may return to the Emergency Department should you have concerns or if your condition changes or worsens in any way. Call to make a Follow-up appointment: [facility] [address] [place] [address] [facility] [address] [place] [address] Dr.ive Hernández [place], [place] [address] Phone--[phone] Coding Level of Care Code ED [employer] for Delmer Ray
[2024-03-05 15:45] LABS: Add Urine Microscopic? YES; Bilirubin Urine 1+ (Negative); Blood Urine 3+ (Negative); Glucose Urine UA Norm (Normal); Ketones Urine 1+ (Negative); Leukocyte Esterase Urine Trace (Negative); Nitrate Urine Positive (Negative); Protein Urine 3+ (Negative); Urine Appearance Cloudy (CLEAR); Urine Color Brown (Yellow); Urobilinogen Urine Norm (Negative); pH Urine 5 (5-7)
[2024-03-05 15:46] LABS: Add Urine Culture? Yes; Bacteria Urine 2+ /hpf; RBC Urine TOO NUMEROUS TO CNT /hpf (0-2)
[2024-03-05] MEDS: nitrofurantoin SR (BID) 100 mg Capsule PO (16:25)
[2024-03-05 16:29] VITALS: BP 143/72; PULSE 75; RESP 17; O2SAT 97
== END 2024-03-05 16:38 | disposition home or self-care (01) ==
PROVIDERS: Emergency Medicine; Emergency Provider Internal Medicine; PCP Family Medicine
DX: N39.0 Urinary tract infection, site not specified (principal); R31.9 Hematuria, unspecified; F17.210 Nicotine dependence, cigarettes, uncomplicated; Z95.0 Presence of cardiac pacemaker; J44.9 Chronic obstructive pulmonary disease, unspecified; Z85.118 Personal history of other malignant neoplasm of bronchus and lung; Z85.850 Personal history of malignant neoplasm of thyroid; E78.5 Hyperlipidemia, unspecified; Z86.73 Personal history of transient ischemic attack (TIA), and cerebral infarction without residual deficits; I10 Essential (primary) hypertension; I25.10 Atherosclerotic heart disease of native coronary artery without angina pectoris
CPT/HCPCS: 80053; 81000; 81001; 85025; 87086; 99283

== ENCOUNTER → 2024-03-20 15:29 | Outpatient (BNVA) | payer MEDICAID, SELFPAY | PROVIDERS: PCP Family Medicine; Visit Provider Family Medicine | DX: N39.0 Urinary tract infection, site not specified (principal) | CPT/HCPCS: 81000 ==

== ENCOUNTER 2024-03-28 15:15 | Oncology outpatient (recurring) (ONCR) | payer MEDICAID, SELFPAY | END 2024-03-28 23:59 | disposition home or self-care (01) | PROVIDERS: PCP Family Medicine; Visit Provider Internal Medicine Medical Oncology | DX: Z45.2 Encounter for adjustment and management of vascular access device (principal); I25.10 Atherosclerotic heart disease of native coronary artery without angina pectoris; I48.0 Paroxysmal atrial fibrillation; I73.9 Peripheral vascular disease, unspecified; I35.1 Nonrheumatic aortic (valve) insufficiency; Z86.79 Personal history of other diseases of the circulatory system; Z53.9 Procedure and treatment not carried out, unspecified reason | CPT/HCPCS: 96523; 99214 ==

== ENCOUNTER → 2024-04-06 14:16 | Outpatient (BNVA) | payer MEDICAID, SELFPAY | PROVIDERS: PCP Family Medicine; Visit Provider Internal Medicine Pulmonary Disease | DX: C34.91 Malignant neoplasm of unspecified part of right bronchus or lung (principal); J43.1 Panlobular emphysema; J44.9 Chronic obstructive pulmonary disease, unspecified; J96.11 Chronic respiratory failure with hypoxia; I27.81 Cor pulmonale (chronic); F17.210 Nicotine dependence, cigarettes, uncomplicated; Z99.81 Dependence on supplemental oxygen | CPT/HCPCS: 99214 ==

== ENCOUNTER 2024-04-19 14:51 | Oncology outpatient (recurring) (ONCR) | payer MEDICAID, SELFPAY | END 2024-04-28 23:59 | disposition home or self-care (01) | LOC: ONCMED 14:51 | PROVIDERS: PCP Family Medicine; Visit Provider Internal Medicine Medical Oncology | DX: Z45.2 Encounter for adjustment and management of vascular access device (principal) | CPT/HCPCS: 96523 ==

== ENCOUNTER 2024-04-24 09:04 | Inpatient (IN) | payer MEDICAID, SELFPAY ==
[2024-04-24] VITALS (16 sets, daily range): BP systolic 94–148; BP diastolic 48–83; PULSE 69–105; RESP 12–31; TEMP 36.4–36.8; O2SAT 92–99; BMI 21.2
--- NOTE | 2024-04-24 09:09 | XRR_ITS ---
PROCEDURE INFORMATION: Exam: XR Chest Exam date and time: 04/24/2024 9:14 AM Age: 74 years old Clinical indication: Shortness of breath; Prior surgery; Surgery date: 6+ months; Surgery type: Port placement TECHNIQUE: Imaging protocol: Radiologic exam of the chest. Views: 1 view. COMPARISON: CT chest con [id number] 02/08/2024 4:39 PM FINDINGS: Tubes, catheters and devices: Single lead pacemaker/defibrillator. Infusion port enters from the right and terminates in the SVC. Thoracic neurostimulator. Lungs: Moderate chronic interstitial fibrosis. Pleural spaces: Slight blunting of the right costophrenic angle. Heart/Mediastinum: Unremarkable. No cardiomegaly. Bones/joints: Unremarkable. XR/XR chest 1V portable [id number] IMPRESSION: Interval minimal blunting of the right costophrenic angle.
--- NOTE | 2024-04-24 09:10 | ED_ITS ---
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 Apparently over the last few days she has gotten quite a bit worse with her breathing. Family also notes she has been swelling in her legs and having some weeping. No fevers. No new cough. No abdominal pain. No nausea or vomiting. EMS reports she was hypoxic in the 70s on her home oxygen. She presents here to CPAP. She received 3 updrafts on the ambulance. She is alert and oriented on presentation. Review of Systems 2 Narrative: Constitutional symptoms: Negative except as documented in HPI. Skin symptoms: Negative except as documented in HPI. Eye symptoms: Negative except as documented in HPI. ENMT symptoms: Negative except as documented in HPI. Respiratory symptoms: Negative except as documented in HPI. Cardiovascular symptoms: Negative except as documented in HPI. Gastrointestinal symptoms: Negative except as documented in HPI. Genitourinary symptoms: Negative except as documented in HPI. Musculoskeletal symptoms: Negative except as documented in HPI. Neurologic symptoms: Negative except as documented in HPI. Psychiatric symptoms: Negative except as documented in HPI. Endocrine symptoms: Negative except as documented in HPI. [facility] ED 2 PFSH: Medical History Acute exacerbation of chronic obstructive pulmonary disease Lump of right breast Lung cancer Left shoulder pain Avulsion fracture of left talus Skin tear of right upper arm without complication Orthopnea Sinus node dysfunction Sinus pause Bradycardia Orthostatic hypotension Hypovitaminosis D Seizure-like activity Syncopal episodes Nicotine dependence, cigarettes, with unspecified nicotine-induced disorders Sacral decubitus ulcer Chronic rhinosinusitis Infected epidermoid cyst Fall Cor pulmonale Cor pulmonale Leg pain, left Nicotine addiction Chronic respiratory failure with hypoxia Lung nodule Aortic cusp regurgitation Skin lesions Actinic keratosis due to exposure to sunlight Closed intertrochanteric fracture of right hip Smoking addiction Chronic pain Thyroid cancer SOB (shortness of breath) Dyslipidemia (high LDL; low HDL) History of COPD CVA (cerebral vascular accident) Benign essential hypertension CAD (coronary artery disease) Hx of carotid stenosis Leg pain, medial Neck strain COPD (chronic obstructive pulmonary disease) Plantar porokeratosis, acquired Surgical History Status post cardiac pacemaker procedure History of bronchoscopy History of hip surgery Hx of hysterectomy History of bilateral carpal tunnel release History of lumpectomy History of rectal surgery History of ankle surgery Status post open reduction and internal fixation (ORIF) of fracture H/O thyroidectomy S/P hardware removal Spine History of back surgery Port-A-Cath in place Family History Brother Leukemia Diabetes Lung disease Mother Anesthesia complication CAD (coronary artery disease) Father Bleeding disorder Clotting disorder CAD (coronary artery disease) Cancer Stroke Sister CAD (coronary artery disease) Chronic kidney disease (CKD) Lung disease Family/Other Diabetes Stroke Grandfather Suicide Denies family history of Dementia Social History Smoking and tobacco/nicotine status: current every day tobacco/nicotine user (5-6 cigarattes/ day) cigarettes Packs smoked per day: 0.5 Years cigarettes smoked: 55 [ Other cigarette details: Hx of 2 PPD x 50 Years, started at age 12] Quit status (tobacco/nicotine): considering quitting Second hand smoke exposure: Yes Alcohol intake: never Substance/Drug Use: current Other substance/drug use details: Couple of months ago Gummies Adopted: No Lives independently: Yes Household members: none Housing: Apartment Marital status: / Current occupational status: disabled Do you think of yourself as: Straight/Heterosexual Current gender identity: Female Physical Exam 2 Narrative: EXAM NARRATIVE: General: Alert, no acute distress. Skin: Warm, dry. Head: Normocephalic, atraumatic. Neck: Supple, trachea midline. Eye: Extraocular movements are intact. Ears, nose, mouth and throat: Oral mucosa moist. Cardiovascular: Regular rate and rhythm, Normal peripheral perfusion. Respiratory: coarse, scattered wheeze, mild increased wob. tachypnea, breath sounds are equal, Symmetrical chest wall expansion. Gastrointestinal: Soft, Nontender, Non distended, Normal bowel sounds. Musculoskeletal: Normal ROM, no deformity. Neurological: Alert and oriented to person, place, time, and situation, No focal neurological deficit observed. Psychiatric: Cooperative, appropriate mood & affect. Course 2 Vital Signs: Vital signs: Vital Signs Pulse Rate 73 04/24/24 10:17 Respiratory Rate 12 04/24/24 10:25 Blood Pressure 119/83 04/24/24 10:17 Pulse Oximetry 96 04/24/24 10:25 Oxygen Delivery Me thod BiPAP 04/24/24 10:25 Oxygen Flow Rate 15 04/24/24 09:13 Fraction of Inspir ed Oxygen 40 04/24/24 09:30 MDM - SOB/Dyspnea Medical Decision Making Differential diagnosis for patient with shortness of breath includes but is not limited to and based on the above HPI, review of systems and physical exam: Pneumonia. Bronchitis. Asthma or COPD with acute exacerbation. Acute coronary syndrome / NE. Pulmonary embolism. Anxiety. Congestive heart failure. Viral infections including influenza and Covid-19. Atrial fibrillation. Anxiety. Pleural effusion. Pneumothorax. Workup: Lab work, chest X-ray and EKG ordered to evaluate, rule in and rule out above pathologies Chest x-ray: No obvious signs of heart failure. No infiltrates. She has a pacemaker in place in the left chest. A port in place on the right chest. This was reviewed and interpreted by myself the ER physician. EKG: Time 914 rate 90. PVCs. Normal sinus rhythm, No ST-T changes, normal SD & QRS intervals, This was reviewed and interpreted by myself the ER physician at 916 Lab Review: Laboratory results were reviewed and interpreted by myself the emergency room physician. White count is 8. Hemoglobin is 7.5. This is fairly stable for her. She ranges between 7 and 9. BUN and creatinine are 19 and 1.2 which is not significantly different than most of her previous lab draws. Bicarb is 42 so some compensation for her chronic hypercapnic respiratory failure. AB.3 / on a CPAP Consultation: I spoke with the hospitalist on-call Dr. Poep who agrees with admission. He request urinalysis which has been ordered. I reviewed the patient's medical record. Reexamination: Patient still has quite a bit of wheeze but is much improved on the BiPAP versus CPAP. She is requesting a drink. She is completely alert and oriented to family. No focal motor deficits. Assessment and plan: COPD with acute exacerbation Acute on chronic hypercapnic respiratory failure Acute on chronic hypoxemic respiratory failure Congestive heart failure -2 updrafts, Solu-Medrol, 40 mg IV Lasix, BiPAP. -I discussed the patient with the hospitalist on-call who is admitting the patient. - Discussed findings and plan with patient. Answered any questions. - All laboratory values were reviewed and interpreted personally by myself, the ER physician - All imaging was reviewed and interpreted personally by myself, the ER physician. - Evaluation and treatment of this problem were appropriate in the emergency setting -I spent a total of >35 minutes of critical care time managing the patient, independent of any other practitioner. -The time involved in the performance of separately reportable procedures was not counted towards critical care time. Lab Data 04/24/24 09:41 04/24/24 09:41 Labs/Radiology: Radiology Impressions Chest X-Ray 04/24/24 09:09 IMPRESSION: Interval minimal blunting of the right costophrenic angle. Laboratory Results WBC 8.46 10^3/uL (3.29-11.43) 04/24/24 09:41 RBC 3.00 10^6/uL (3.85-5.65) L 04/24/24 09:41 Hgb 7.50 g/dL (11.27-16.99) L 04/24/24 09:41 Hct 27.4 % (36-47) L 04/24/24 09:41 MCV 91.3 fl (85-98) 04/24/24 09:41 MCH 25.0 pg (27-33) L 04/24/24 09:41 MCHC 27.4 g/dL (30-55) L 04/24/24 09:41 RDW 16.9 % (12.1-15.1) H 04/24/24 09:41 Plt Count 248 10^3/cmm (157-399) 04/24/24 09:41 MPV 9.3 fL (7.4-10.4) 04/24/24 09:41 Neut % (Auto) 67.2 % 04/24/24 09:41 Lymph % (Auto) 15.8 % 04/24/24 09:41 [place] % (Auto) 13.4 % 04/24/24 09:41 Eos % (Auto) 2.6 % 04/24/24 09:41 Baso % (Auto) 0.6 % 04/24/24 09:41 Neut # (Auto) 5.69 10^3/uL (1.8-7.7) 04/24/24 09:41 Lymph # (Auto) 1.3 10^3/uL (0.8-4.8) 04/24/24 09:41 [place] # (Auto) 1.1 10^3/uL (0.2-0.9) H 04/24/24 09:41 Eos # (Auto) 0.2 10^3/uL (0.0-0.8) 04/24/24 09:41 Baso # (Auto) 0.1 10^3/uL (0.0-0.1) 04/24/24 09:41 Nucleated RBC % (auto) 0 % 04/24/24 09:41 Nucleated RBCs # 0.0 /100WBC 04/24/24 09:41 Specimen Type Arterial 04/24/24 09:16 Sample Site Radial, left 04/24/24 09:16 ABG pH 7.37 (7.35-7.45) 04/24/24 09:16 ABG pCO2 74.5 mmHg (35-45) H* 04/24/24 09:16 ABG pO2 110.0 mmHg (80.0-100.0) H 04/24/24 09:16 ABG HCO3 42.8 mmol/L (22-26) H 04/24/24 09:16 ABG O2 Saturation 99.4 04/24/24 09:16 ABG Base Excess 15.6 mmol/L (-2.0-2.0) H 04/24/24 09:16 Ankush Test Pos 04/24/24 09:16 A-a O2 Gradient Not Reportable 04/24/24 09:16 Hematocrit 22.6 % (37-47) L 04/24/24 09:16 Hgb O2 Saturation 96.0 % (95-100) 04/24/24 09:16 Carboxyhemoglobin 2.5 %THgb (0.4-20.1) 04/24/24 09:16 Methemoglobin 0.9 % (0.4-1.5) 04/24/24 09:16 Total Hemoglobin 7.4 g/dL (12-16) L 04/24/24 09:16 Sodium 145.0 mmol/L (131-143) H 04/24/24 09:16 Potassium 3.5 mmol/L (3.5-5.0) 04/24/24 09:16 Glucose 115.0 mg/dL (70-115) 04/24/24 09:16 Ionized Calcium 1.2 mmol/L (1.1-1.4) 04/24/24 09:16 O2 Delivery Device Bipap 04/24/24 09:16 O2 Liters/Min 15.0 % 04/24/24 09:16 Environmental Health And Safety Intern ID [place] 04/24/24 09:16 Sodium 144 mmol/L (136-145) 04/24/24 09:41 Potassium 3.7 mmol/L (3.5-5.1) 04/24/24 09:41 Chloride 94 mmol/L (98-107) L 04/24/24 09:41 Carbon Dioxide 42 mmol/L (22-29) H* 04/24/24 09:41 Anion Gap 11.7 (5-19) 04/24/24 09:41 BUN 19 mg/dL (8-23) 04/24/24 09:41 Creatinine 1.2 mg/dL (0.5-0.9) H 04/24/24 09:41 GFR Calculation Not Reportable 04/24/24 09:41 Glucose 101 mg/dL (65-115) 04/24/24 09:41 Calculated Osmolality 300 mOsm/kg (285-295) H 04/24/24 09:41 Calcium 9.0 mg/dL (8.5-10.5) 04/24/24 09:41 Total Bilirubin 0.2 mg/dL (0.15-1.2) 04/24/24 09:41 AST 26 U/L (0-32) 04/24/24 09:41 ALT 15 U/L (0-33) 04/24/24 09:41 Alkaline Phosphatase 103 U/L (35-105) 04/24/24 09:41 Troponin T Baseline 48 ng/L (0-10) H 04/24/24 09:41 C-Reactive Protein 9.8 mg/L (0.0-4.9) H 04/24/24 09:41 NT-Pro-B Natriuret Pep 1237 pg/mL (0-450) H 04/24/24 09:41 Total Protein 6.7 g/dL (6.6-8.7) 04/24/24 09:41 Albumin 3.6 g/dL (3.5-5.2) 04/24/24 09:41 Globulin 3.1 g/dL (1.3-4.6) 04/24/24 09:41 All radiology interpretation(s) finalized by discharge Discharge Plan Discharge Patient Disposition: Admitted As Inpatient Clinical Impression: Acute exacerbation of chronic obstructive airways disease, Congestive heart failure, Acute hypoxic on chronic hypercapnic respiratory failure, Acute on chronic respiratory failure with hypoxemia Condition: Stable Coding Level of Care Code ED Public Relations Assistant for Delmer Ray
--- NOTE | 2024-04-24 09:14 | ECG_ITS ---
[facility] Test Date: 2024-04-24 Pat Name: Sakina Lombardi Department: Room: Gender: Female Import Manager: : 1950 Requested By: Yessenia Davila Order Number: [id number] Barney MD: Chante Salmon M.D. Measurements Intervals [place] Rate: 90 P: 86 MO: 160 QRS: 59 QRSD: 78 T: 64 QT: 351 QTc: 431 Interpretive Statements Possible multifocal atrial rhythm Difficult to discern the rhythm because of the baseline artifact ABNORMAL RHYTHM ECG Compared to ECG 11/12/2023 16:34:03 Myocardial infarct finding no longer present Electronically Signed On 04-24-2024 17:28:53 CDT by Chante Salmon M.D. [email or web address]
[2024-04-24 09:27] LABS: ABG PH Result 7.37 (7.35-7.45); Arterial Blood Gas Hematocrit 22.6 % (37-47); Base Excess ABG 15.6 mmol/L (-2.0-2.0); Blood Gas Allen Test Pos; Blood Gas Operator Identificat WALCI; Blood Gas Sample Site Radial, left; Blood Gas Sample Type Arterial; Carboxyhemoglobin 2.5 %THgb (0.4-20.1); HCO3 ABG 42.8 mmol/L (22-26); Ionized Calcium Level - ABG 1.2 mmol/L (1.1-1.4); Methemoglobin 0.9 % (0.4-1.5); Oxygen Device BIPAP; Oxygen Saturation ABG 99.4; Potassium Level - ABG 3.5 mmol/L (3.5-5.0); Total Hemoglobin 7.4 g/dL (12-16)
[2024-04-24 09:28] LABS: ABG PCO2 74.5 mmHg (35-45)
[2024-04-24] MEDS: methylPREDNISolone sod succ 125 mg/2 mL INJ IVP (09:45)
[2024-04-24 09:55] LABS: Basophils # 0.1 10^3/uL (0.0-0.1); Basophils % 0.6 %; Eosinophils # 0.2 10^3/uL (0.0-0.8); Eosinophils % 2.6 %; Hematocrit 27.4 % (36-47); Lymphocytes # 1.3 10^3/uL (0.8-4.8); Lymphocytes % 15.8 %; Mean Corpuscular HGB Conc 27.4 g/dL (30-55); Mean Corpuscular Volume 91.3 fl (85-98); Mean Platelet Volume 9.3 fL (7.4-10.4); Monocytes # 1.1 10^3/uL (0.2-0.9); Monocytes % 13.4 %; Neutrophils # 5.69 10^3/uL (1.8-7.7); Neutrophils % 67.2 %; Nucleated Red Blood Cells % 0 %; Platelet Count 248 10^3/cmm (157-399); Red Cell Distribution Width 16.9 % (12.1-15.1); White Blood Count 8.46 10^3/uL (3.29-11.43)
[2024-04-24 10:08] LABS: Troponin(5th) Baseline 48 ng/L (0-10)
[2024-04-24 10:12] LABS: Alanine Aminotransferase 15 U/L (0-33); Albumin Level 3.6 g/dL (3.5-5.2); Alkaline Phosphatase 103 U/L (35-105); Anion Gap 11.7 (5-19); Aspartate Amino Transferase 26 U/L (0-32); Blood Urea Nitrogen 19 mg/dL (8-23); C Reactive Protein 9.8 mg/L (0.0-4.9); Chloride 94 mmol/L (98-107); Globulin 3.1 g/dL (1.3-4.6); Glucose 101 mg/dL (65-115); NT Pro B Type Natriuretic Pept 1237 pg/mL (0-450); Osmolality Calculated 300 mOsm/kg (285-295); Potassium 3.7 mmol/L (3.5-5.1); Sodium 144 mmol/L (136-145); Total Bilirubin 0.2 mg/dL (0.15-1.2); Total Protein 6.7 g/dL (6.6-8.7)
[2024-04-24 10:14] LABS: Creatinine Clr Calc Pharmacy 27.3193
[2024-04-24 10:16] LABS: Carbon Dioxide 42 mmol/L (22-29)
--- NOTE | 2024-04-24 10:25 | PC.PHAR ---
PT HAS SEVERAL OLDER RX BOTTLES BUT DOES NOT HAVE ALL HER MEDICATIONS WITH HER. SON DOES NOT KNOW WHAT ALL SHE TAKES BUT HAS DISCHARGE MED LIST FROM 03/05/24.VERIFIED WITH LORA TESFAYE PT IS TAKING ELIQUIS 2.5MG DOSAGE CURRENTLY.
--- NOTE | 2024-04-24 11:02 | P.HP_ITS ---
Providers/Chief Complaint 2 Admitting Physician: Rony Pope MD, hospitalist Primary Care Provider: Kitty Holt MD Chief Complaint: SOB History of Present Illness Sakina Lombardi is a 74 year old female with severe COPD, history of lung cancer, and multiple other medical problemspresenting from home with increasing swelling, and increasing shortness of breath. She has been getting more swollen over the last 2 weeks. She is typically on 3 L of oxygen, but was significantly short of breath this morning. No recent fevers, vomiting. Family notes that she has been very sleepily recently, and occasionally has twitches. No diarrhea, ill contacts. Some wheezing. No productivity to her cough. Received 3 breathing treatments during transport. Received some Solu-Medrol in the ER and has received a dose of 40 mg of Lasix IV. Denies any blood in stool, or black or tarry stool. Family relates she is not always compliant with the medication. They indicates she probably would not use a BiPAP at home. Review of Systems 2 General: Reports: 10 or more systems reviewed and unremarkable except in HPI and below Card: Denies: chest pain Resp: Reports: dyspnea and wheezing; Denies: productive cough or non-productive cough GI: Denies: abdominal pain, nausea, vomiting, hematochezia or melena Medications/Allergies Home Medications Medication Instructions Recorded Confirmed Last Taken Type calcitriol 0.5 mcg capsule 0.5 mcg PO DAILY #90 caps 05/25/22 04/24/24 03/05/24 Rx (Rocaltrol) lidocaine 5 % topical patch 1 - 3 patch transdermal DAILY PRN 05/21/23 04/24/24 Unknown History Pain atorvastatin 40 mg tablet 20 mg PO Q72H 07/27/23 04/24/24 03/05/24 History budesonide 0.5 mg/2 mL suspension 0.5 mg inhalation BID PRN 07/27/23 04/24/24 Unknown History for nebulization Shortness Of Breath Or Wheezing nitroglycerin 0.4 mg sublingual 0.4 mg sublingual Q5M PRN Chest 07/27/23 04/24/24 11/12/23 History tablet (Nitrostat) Pain lidocaine-prilocaine 2.5 %-2.5 % 1 applic topical DAILY PRN pain 08/12/23 04/24/24 Unknown Rx topical cream #50 grams fluticasone 500 mcg-salmeterol 50 1 inh inhalation BID #60 ea 09/02/23 04/24/24 11/07/23 Rx mcg/dose blistr powdr for inhalation (Advair Diskus) potassium chloride 20 mEq/15 mL 10 meq (7.5 mL) PO BID #450 mL 09/09/23 04/24/24 11/11/23 Rx oral liquid bumetanide 1 mg tablet 1 mg PO BID 11/05/23 04/24/24 03/05/24 History roflumilast 500 mcg tablet 500 mcg PO DAILY 11/08/23 04/24/24 11/11/23 History magnesium oxide 400 mg PO DAILY 11/12/23 04/24/24 11/11/23 History metoprolol tartrate 25 mg tablet 25 mg PO BID #60 tabs 12/09/23 04/24/24 Unknown Rx pantoprazole 40 mg tablet,delayed 40 mg PO DAILY #90 tabs 12/09/23 04/24/24 Unknown Rx release albuterol sulfate 90 mcg/actuation 2 puff inhalation Q4H PRN 12/16/23 04/24/24 Unknown Rx aerosol inhaler shortness of breath or wheezing #6.7 grams montelukast 4 mg chewable tablet 8 mg (2 x 4 mg) PO DAILY #60 tabs 02/03/24 04/24/24 Unknown Rx ondansetron 4 mg disintegrating 4 mg PO Q8H PRN nausea and 02/24/24 04/24/24 Unknown Rx tablet vomiting #30 tabs hydrocodone 7.5 mg-acetaminophen 1 tab PO Q8H PRN Pain 03/05/24 04/24/24 03/05/24 History 325 mg tablet levothyroxine 25 mcg tablet 25 mcg PO DAILY 03/05/24 04/24/24 03/05/24 History cilostazol 50 mg tablet 50 mg PO BID #90 tabs 03/17/24 04/24/24 Unknown Rx nitrofurantoin 100 mg PO Q12H 5 days #10 caps 03/20/24 04/24/24 Unknown Rx monohydrate/macrocrystals 100 mg capsule (Macrobid) apixaban 2.5 mg tablet (Eliquis) 2.5 mg PO BID #60 tabs 03/28/24 04/24/24 Unknown Rx baclofen 10 mg tablet 10 mg PO Q8H PRN muscle spasm #90 04/11/24 04/24/24 Unknown Rx tabs chlorpheniramine 4 5 ml PO Q6H PRN cold symptoms #160 04/13/24 04/24/24 Unknown Rx mg-phenylephrine 10 mg-DM 15 mg/5 mL mL oral liquid (Ed A-Hist DM) Allergies Allergy/AdvReac Type Severity Reaction Status Date / Time amiodarone Allergy Severe ADR-Confusi Verified 04/13/24 15:57 on 2-octyl cyanoacrylate Allergy ALGY-Rash Verified 04/13/24 15:57 adhesive tape Allergy ALGY-Rash Verified 04/13/24 15:57 amitriptyline Allergy ALGY-Hives Verified 04/13/24 15:57 amoxicillin Allergy ALGY-Hives Verified 04/13/24 15:57 cefaclor [From Ceclor] Allergy ALGY-Difficulty Verified 04/13/24 15:57 Breathing ciprofloxacin [From Cipro] Allergy ALGY-Difficulty Verified 04/13/24 15:57 Breathing gabapentin Allergy ALGY-Hives Verified 04/13/24 15:57 ibuprofen Allergy ALGY-Hives Verified 04/13/24 15:57 metronidazole [From Flagyl] Allergy ALGY-Hives Verified 04/13/24 15:57 Penicillins Allergy ALGY-Hives Verified 04/13/24 15:57 Sulfa (Sulfonamide Allergy ALGY-Hives Verified 04/13/24 15:57 Antibiotics) sulfamethoxazole Allergy ALGY-Difficulty Verified 04/13/24 15:57 [From Bactrim] Breathing tetracycline Allergy ALGY-Hives Verified 04/13/24 15:57 trimethoprim Allergy ALGY-Hives Verified 04/13/24 15:57 PFSH Acute 2 PFSH: Medical History Acute exacerbation of chronic obstructive pulmonary disease Lump of right breast Lung cancer Left shoulder pain Avulsion fracture of left talus Skin tear of right upper arm without complication Orthopnea Sinus node dysfunction Sinus pause Bradycardia Orthostatic hypotension Hypovitaminosis D Seizure-like activity Syncopal episodes Nicotine dependence, cigarettes, with unspecified nicotine-induced disorders Sacral decubitus ulcer Chronic rhinosinusitis Infected epidermoid cyst Fall Cor pulmonale Cor pulmonale Leg pain, left Nicotine addiction Chronic respiratory failure with hypoxia Lung nodule Aortic cusp regurgitation Skin lesions Actinic keratosis due to exposure to sunlight Closed intertrochanteric fracture of right hip Smoking addiction Chronic pain Thyroid cancer SOB (shortness of breath) Dyslipidemia (high LDL; low HDL) History of COPD CVA (cerebral vascular accident) Benign essential hypertension CAD (coronary artery disease) Hx of carotid stenosis Leg pain, medial Neck strain COPD (chronic obstructive pulmonary disease) Plantar porokeratosis, acquired Surgical History Status post cardiac pacemaker procedure History of bronchoscopy History of hip surgery Hx of hysterectomy History of bilateral carpal tunnel release History of lumpectomy History of rectal surgery History of ankle surgery Status post open reduction and internal fixation (ORIF) of fracture H/O thyroidectomy S/P hardware removal Spine History of back surgery Port-A-Cath in place Family History Brother Leukemia Diabetes Lung disease Mother Anesthesia complication CAD (coronary artery disease) Father Bleeding disorder Clotting disorder CAD (coronary artery disease) Cancer Stroke Sister CAD (coronary artery disease) Chronic kidney disease (CKD) Lung disease Family/Other Diabetes Stroke Grandfather Suicide Denies family history of Dementia Social History Smoking and tobacco/nicotine status: current every day tobacco/nicotine user (5-6 cigarattes/ day) cigarettes Packs smoked per day: 0.5 Years cigarettes smoked: 55 [ Other cigarette details: Hx of 2 PPD x 50 Years, started at age 12] Quit status (tobacco/nicotine): considering quitting Second hand smoke exposure: Yes Alcohol intake: never Substance/Drug Use: current Other substance/drug use details: Couple of months ago Gummies Adopted: No Lives independently: Yes Household members: none Housing: Apartment Marital status: / Current occupational status: disabled Do you think of yourself as: Straight/Heterosexual Current gender identity: Female Vitals/I&O/Wt Last Vital Signs Pulse 73 04/24/24 10:17 Resp 12 04/24/24 10:25 BP 119/83 04/24/24 10:17 Pulse Ox 96 04/24/24 10:25 O2 Del Method BiPAP 04/24/24 10:25 O2 Flow Rate 15 04/24/24 09:13 FiO2 40 04/24/24 09:30 Weight last 48 hrs Weight 38.555 kg Physical Exam 2 Narrative: General exam is white female, on BiPAP and difficult to understand. Family supplements history and physical. HEENT: Atraumatic normocephalic. Oropharynx not examined as she is on BiPAP Neck is supple no lymphadenopathy thyromegaly Cardiovascular regular rate and rhythm with occasional premature beat. No murmur. Heart sounds distant Lungs diminished breath sounds bilateral and some bilateral expiratory wheezing. No crackles Abdomen is soft nontender with positive bowel sounds. No obvious organomegaly Back demonstrates a small decubitus, right parathoracic area with no evidence of infection or erythema Extremities 2+ edema bilaterally. No cyanosis. Some clubbing is noted.. Skin see findings above Neuro no focal deficits Data 04/24/24 09:41 04/24/24 09:41 Other Labs: Urinalysis is ordered and pending MCV is 91 ABG demonstrates pH 7.37, pCO2 75, pO2 110 on 15 L. I believe her baseline CO2 is probably around 50-55 normally. LFTs are normal Calcium and albumin are normal CRP 9.8 BNP 1237 Troponin 48 Chest x-ray by my review demonstrates no obvious infiltrate, pacemaker, port, and blunting right costophrenic angle EKG demonstrates sinus rhythm, normal axis, occasional premature beat, nonspecific ST-T wave changes. Borderline poor R wave progression. Echo in April 2023 demonstrated moderate AR, moderate pulmonary hypertension, preserved EF. In October a limited echo was performed which was relatively unchanged A&P Assessment and plan (1) COPD with acute exacerbation: Patient with evidence of acute COPD exacerbation Budesonide twice daily DuoNeb every 4 hours Solu-Medrol 60 mg IV every 12 hours. She already received 125 mg IV in the emergency department No evidence of infection currently, hold off on antibiotics. Note that she is allergic to tetracycline. Encourage abstinence from smoking. (2) Acute respiratory failure with hypoxia and hypercarbia: Patient with evidence of acute hypoxic and hypercarbic respiratory failure She has been sleepy lately, with intermittent myoclonic jerks indicating elevated CO2 levels. They are about 20 above her baseline. Continue BiPAP as tolerated (3) Acute on chronic diastolic (congestive) heart failure: Patient with evidence of acute diastolic heart failure, superimposed on chronic. Likely this is secondary to cor pulmonale, known moderate aortic regurgitation Bumex 1 mg IV every 12 hours Close follow-up of electrolytes in the morning as well as magnesium Continue her home potassium No need for repeat echo at this time. (4) Anemia: Patient with significant anemia with hemoglobin less than 8 Hopefully this improves with diuresis Repeat CBC tomorrow Anemia panel and stool Hemoccult Increase Protonix to twice daily Repeat hemoglobin sooner, should any evidence of acute bleeding be noted Qualifiers: Anemia type: iron deficiency Iron deficiency anemia type: inadequate dietary iron intake Qualified Code(s): D50.8 - Other iron deficiency anemias (5) Metabolic alkalosis: Patient with longstanding metabolic alkalosis Initiate acetazolamide to 50 mg daily Close follow-up of electrolytes (6) Acute kidney injury: Patient with evidence of acute kidney injury Place Mayer Likely this is cardiorenal Repeat creatinine tomorrow (7) Lung cancer: Patient with past history of lung cancer, treated with radiation She has a costophrenic angle blunting on chest x-ray. This could be secondary to her cancer treatment and radiation versus congestive heart failure. Qualifiers: Laterality: unspecified laterality Lung location: unspecified part of lung Qualified Code(s): C34.90 - Malignant neoplasm of unspecified part of unspecified bronchus or lung Plan Decubitus right back. Keep pressure off area. This is been present for quite some time, and does not appear infected. Consider wound care as an outpatient. It is approximately three-quarter by 1 cm in diameter. It is a stage II ulcer. Multiple other medical problems as outlined in past medical history Full code SCDs for DVT prophylaxis Pharmacologic contraindicated at this time while exploration of anemia is occurring Attestations 2 Medical Necessity Statement*: Will need greater than 2 midnight stay for evaluation and treatment of acute COPD exacerbation, with need for BiPAP, and evidence of diastolic heart failure. Diagnoses COPD with acute exacerbation J44.1 Acute respiratory failure with hypoxia and hypercarbia J96.01; J96.02 Acute on chronic diastolic (congestive) heart failure I50.33 Iron deficiency anemia secondary to inadequate dietary iron intake D50.8 Anemia type: iron deficiency Iron deficiency anemia type: inadequate dietary iron intake Metabolic alkalosis E87.3 Acute kidney injury N17.9 Malignant neoplasm of lung, unspecified laterality, unspecified part of lung C34.90 Laterality: unspecified laterality Lung location: unspecified part of lung Time Spent (min) 61
--- NOTE | 2024-04-24 11:10 | ECG_ITS ---
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 Measurements Intervals [place] Rate: 80 P: 83 ID: [id number] QRS: 63 QRSD: 78 T: 68 QT: 372 QTc: 430 Interpretive Statements SINUS RHYTHM WITH OCCASIONAL SUPRAVENTRICULAR PREMATURE COMPLEXES Compared to ECG 04/24/2024 09:14:06 No significant changes Electronically Signed On 04-24-2024 17:31:55 CDT by Chante Salmon M.D. [email or web address]
[2024-04-24] MEDS: FUROsemide 10 mg/mL SDV 4mL 40 MG IVP (11:16)
[2024-04-24 11:52] LABS: Folate Level 7.6 ng/mL (4.8-37.3)
[2024-04-24 11:53] LABS: Ferritin 10 ng/mL (15-150); Iron 12 ug/dL (37-145); Thyroid Stimulating Hormone 5.67 uIU/mL (0.27-4.20); Total Iron Binding Capacity 394 mcg/dl; Unsaturated Iron Binding 382 ug/dL (112-347); Vitamin B12 658 pg/mL (232-1245)
[2024-04-24 12:01] LABS: Add Urine Culture? No; Bilirubin Urine Neg (Negative); Blood Urine Neg (Negative); Glucose Urine UA Norm (Normal); Hyaline Casts Urine 0-4 /lpf; Ketones Urine Negative (Negative); Leukocyte Esterase Urine Negative (Negative); Nitrate Urine Negative (Negative); Protein Urine Neg (Negative); Specific Gravity, Urine 1.015 (1.005-1.030); Urine Appearance Clear (CLEAR); Urine Color Yellow (Yellow); Urobilinogen Urine Neg (Negative); pH Urine 6 (5-7)
[2024-04-24 12:15] LABS: Troponin 5 2HR 53.65 ng/L (0-10); Troponin 5 2HR Delta 5.65 ABS# (0-10)
[2024-04-24 12:20] LABS: Bacteria Urine TRACE /hpf
[2024-04-24] MEDS: atorvastatin 40 mg Tablet 20 MG PO (13:35)
[2024-04-24] MEDS: acetaZOLAMIDE 250 mg Tablet PO (13:35)
[2024-04-24] MEDS: iron sucrose 200 MG in sodium chloride 0.9% (100 ml) 100 ML 220 MG IV (13:36)
[2024-04-24 15:36] LABS: Troponin 5 6HR 48.64 ng/L (0-10); Troponin 5 6HR Delta 0.64 ng/L (0-12)
--- NOTE | 2024-04-24 15:50 | PC.NURSE ---
received in to room 111-1 via stretcher from er.report received.pt is alert and oriented x 4.denies pain at present.sr w/freq pac's on monitor.o2 at 3l per nc.oriented to room environment.instructed to notify staff for any sob,pain,dizziness..or for any concerns at all.pt verb understanding of instructions
--- NOTE | 2024-04-24 16:16 | ECG_ITS ---
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 Measurements Intervals [place] Rate: 92 P: 85 [place]: 134 QRS: 74 QRSD: 75 T: 69 QT: 351 QTc: 435 Interpretive Statements SINUS RHYTHM WITH OCCASIONAL SUPRAVENTRICULAR PREMATURE COMPLEXES Compared to ECG 04/24/2024 11:02:56 No significant changes Poor R wave progression Electronically Signed On 04-24-2024 17:34:39 CDT by Chante Salmon M.D. [id number]
[2024-04-24] MEDS: ipratropium-albuterol 3 mL Neb INHALATION ×2 (16:23→20:03)
[2024-04-24] MEDS: pantoprazole DR 40 mg Tablet PO (17:37)
[2024-04-24] MEDS: cilostazol 100 mg Tablet 50 MG PO (17:37)
[2024-04-24] MEDS: potassium chloride oral liq 20 mEq/15 mL UDC 10 MEQ PO (17:38)
[2024-04-24] MEDS: metoprolol tartrate 25 mg Tablet PO (17:38)
[2024-04-24] MEDS: buprenorphine-naloxone 4-1 mg Film 2 EACH SUBLINGUAL (18:35)
[2024-04-24] MEDS: budesonide 0.5 mg/2 mL Neb INHALATION (20:03)
[2024-04-24] MEDS: bumetanide 0.25 mg/mL SDV 4 mL 1 MG IVP (21:22)
[2024-04-24] MEDS: methylPREDNISolone sod succ 125 mg/2 mL INJ 60 MG IVP (21:22)
[2024-04-25] VITALS (17 sets, daily range): BP systolic 116–173; BP diastolic 54–75; PULSE 78–112; RESP 15–41; TEMP 33.7–37; O2SAT 89–100
[2024-04-25] MEDS: ipratropium-albuterol 3 mL Neb INHALATION ×4 (03:07→20:29)
[2024-04-25 03:29] LABS: Basophils % 0.1 %; Hematocrit 26.4 % (36-47); Lymphocytes # 0.4 10^3/uL (0.8-4.8); Lymphocytes % 3.8 %; Mean Corpuscular HGB Conc 26.9 g/dL (30-55); Mean Corpuscular Hemoglobin 25.3 pg (27-33); Mean Platelet Volume 9.9 fL (7.4-10.4); Monocytes # 0.2 10^3/uL (0.2-0.9); Monocytes % 1.9 %; Neutrophils # 9.01 10^3/uL (1.8-7.7); Neutrophils % 92.9 %; Nucleated Red Blood Cells % 0 %; Platelet Count 223 10^3/cmm (157-399); Red Blood Count 2.81 10^6/uL (3.85-5.65); Red Cell Distribution Width 17.2 % (12.1-15.1)
[2024-04-25 03:55] LABS: Alanine Aminotransferase 14 U/L (0-33); Albumin Level 3.5 g/dL (3.5-5.2); Alkaline Phosphatase 96 U/L (35-105); Anion Gap 11.8 (5-19); Aspartate Amino Transferase 23 U/L (0-32); Blood Urea Nitrogen 19 mg/dL (8-23); Carbon Dioxide 38 mmol/L (22-29); Chloride 94 mmol/L (98-107); Creatinine Clr Calc Pharmacy 27.7884; Globulin 2.9 g/dL (1.3-4.6); Glucose 210 mg/dL (65-115); Magnesium 1.9 mg/dL (1.7-2.3); Osmolality Calculated 298 mOsm/kg (285-295); Potassium 3.8 mmol/L (3.5-5.1); Sodium 140 mmol/L (136-145); Total Bilirubin 0.2 mg/dL (0.15-1.2); Total Protein 6.4 g/dL (6.6-8.7)
[2024-04-25] MEDS: buprenorphine-naloxone 4-1 mg Film 2 EACH SUBLINGUAL ×3 (05:52→21:16)
[2024-04-25] MEDS: budesonide 0.5 mg/2 mL Neb INHALATION ×2 (07:19→20:29)
--- NOTE | 2024-04-25 07:46 | P.PN_ITS ---
Subjective 2 Subjective: Sakina reports she feels a little bit better but her legs are still swollen. Still wheezing quite a bit. Not coughing anything up. Would like a nicotine patch. No chest pain. No obvious bleeding/blood loss. Medications: Reviewed: Yes Vitals/I&O/Wt Last Vital Signs Temp 92.6 F L 04/25/24 04:00 Pulse 103 H 04/25/24 07:18 Resp 20 H 04/25/24 07:18 BP 116/66 04/25/24 04:00 Pulse Ox 94 04/25/24 07:18 O2 Del Method Nasal Cannula 04/25/24 07:18 O2 Flow Rate 3 04/25/24 07:18 FiO2 40 04/24/24 09:30 04/24/24 04/25/24 04/25/24 22:59 06:59 14:59 Intake Total 310 / 310 640 / 950 Output Total 900 / 900 500 / 1400 Balance -590 / -590 140 / -450 Weight last 48 hrs Weight 71.668 kg Weight 49.442 kg Weight 38.555 kg Physical Exam 2 Narrative: General exam is white female, moderate respiratory distress, off BiPAP, alert Neck is supple no lymphadenopathy thyromegaly Cardiovascular regular rate and rhythm with occasional premature beat. No murmur. Heart sounds distant Lungs bilateral expiratory wheezes, diminished air movement bilaterally Abdomen is soft nontender with positive bowel sounds. Back demonstrates a small decubitus, right parathoracic area with no evidence of infection or erythema Extremities 1+ edema bilaterally. No cyanosis. Some clubbing is noted.. Urinary Catheter Management: Mayer: Cath Placed During This Visit: yes Reason for Continuing Indwelling Catheter: Accurate Measurement of Urinary Output in Critically Ill Patients Urinary Catheter Date of Insertion: 04/24/24 Urinary Catheter Time of Insertion: 11:35 Data 04/25/24 02:38 04/25/24 02:38 A&P Assessment and plan (1) COPD with acute exacerbation: Patient with evidence of acute COPD exacerbation Continue budesonide twice daily Continue DuoNeb every 4 hours Continue Solu-Medrol 60 mg IV every 12 hours. She is still actively wheezing a significant amount with moderate respiratory distress No evidence of infection currently, hold off on antibiotics. Note that she is allergic to tetracycline. Encourage abstinence from smoking. Place nicotine patch (2) Acute respiratory failure with hypoxia and hypercarbia: Patient with evidence of acute hypoxic and hypercarbic respiratory failure She has been sleepy lately, with intermittent myoclonic jerks indicating elevated CO2 levels. This is about 20 above her baseline. She is now off BiPAP. She seems mentally clear. (3) Acute on chronic diastolic (congestive) heart failure: Patient with evidence of acute diastolic heart failure, superimposed on chronic. Likely this is secondary to cor pulmonale, known moderate aortic regurgitation Continue Bumex 1 mg IV every 12 hours Close follow-up of electrolytes in the morning as well as magnesium Continue her home potassium No need for repeat echo at this time. (4) Anemia: Patient with significant anemia with hemoglobin less than 8 This is continued to drift down Hold Eliquis Repeat CBC tomorrow She is iron deficient. Given iron yesterday and will repeat today. Await stool Hemoccult Continue Protonix to twice daily With her degree of anemia she may not be a candidate for Eliquis in the future. Qualifiers: Anemia type: iron deficiency Iron deficiency anemia type: inadequate dietary iron intake Qualified Code(s): D50.8 - Other iron deficiency anemias (5) Metabolic alkalosis: Patient with longstanding metabolic alkalosis Initiate acetazolamide to 50 mg daily Close follow-up of electrolytes (6) Acute kidney injury: Patient with evidence of acute kidney injury Mayer placed Likely this is cardiorenal Overall unchanged, continue to follow closely Repeat creatinine tomorrow (7) Lung cancer: Patient with past history of lung cancer, treated with radiation She has a costophrenic angle blunting on chest x-ray. This could be secondary to her cancer treatment and radiation versus congestive heart failure. Qualifiers: Laterality: unspecified laterality Lung location: unspecified part of lung Qualified Code(s): C34.90 - Malignant neoplasm of unspecified part of unspecified bronchus or lung Plan Decubitus right back. Keep pressure off area. This is been present for quite some time, and does not appear infected. Consider wound care as an outpatient. It is approximately three-quarter by 1 cm in diameter. It is a stage II ulcer. Multiple other medical problems as outlined in past medical history Full code SCDs for DVT prophylaxis Pharmacologic contraindicated at this time while exploration of anemia is occurring Attestations 2 Medical Necessity Statement*: Needs continued hospitalization for further diuresis with IV Lasix and close monitoring of electrolytes as well as IV steroids for COPD exacerbation. Diagnoses COPD with acute exacerbation J44.1 Acute respiratory failure with hypoxia and hypercarbia J96.01; J96.02 Acute on chronic diastolic (congestive) heart failure I50.33 Iron deficiency anemia secondary to inadequate dietary iron intake D50.8 Anemia type: iron deficiency Iron deficiency anemia type: inadequate dietary iron intake Metabolic alkalosis E87.3 Acute kidney injury N17.9 Malignant neoplasm of lung, unspecified laterality, unspecified part of lung C34.90 Laterality: unspecified laterality Lung location: unspecified part of lung Time Spent (min) 22
[2024-04-25] MEDS: iron sucrose 200 MG in sodium chloride 0.9% (100 ml) 100 ML 220 MG IV (08:51)
[2024-04-25] MEDS: pantoprazole DR 40 mg Tablet PO ×2 (08:53→17:35)
[2024-04-25] MEDS: magnesium oxide 400 mg tablet PO (08:53)
[2024-04-25] MEDS: calcitriol 0.25 mcg Capsule 0.5 MCG PO (08:53)
[2024-04-25] MEDS: potassium chloride oral liq 20 mEq/15 mL UDC 10 MEQ PO ×2 (08:53→17:35)
[2024-04-25] MEDS: nicotine 21 mg Patch 1 PATCH TRANSDERMA (08:53)
[2024-04-25] MEDS: roflumilast 500 mcg Tablet PO (08:53)
[2024-04-25] MEDS: acetaZOLAMIDE 250 mg Tablet PO (08:53)
[2024-04-25] MEDS: metoprolol tartrate 25 mg Tablet PO ×2 (08:53→17:35)
[2024-04-25] MEDS: levothyroxine 25 mcg Tablet PO (08:53)
--- NOTE | 2024-04-25 09:15 | PC.CHAP ---
Pastoral Care Encounter/Spiritual Assessment Type of Contact [] Declined air and missile defense crewmember visit [] Patient/Family/Request visit [] Outpatient visit [] Follow-up visit [] Physician referral [] Code/Alert [x] Routine visit [] Staff referral [] Actively dying [] Patient sleeping [] Family support [] [] Out of room [] Palliative care [] [] Receiving care in room [] Pre-surgical visit [] Trauma [] Long length of stay [] ICU visit [] Other: Relational/Emotional Strength [x] Patient feels connected with others/family/visitors/staff [] Distress [] Loneliness/isolation [] Abandonment Spirituality of Patient [x] Person of Debra [] Attends Judaism of their Debra [x] Believes in Prayer [] Reads Bible or Amish materials [] There are Spiritual issues to be addressed Card Tender Interventions [x] Prayer [x] Active listening [] Non-anxious presence [x] Spiritual/emotional support [] Crisis/trauma care [] Spiritual counseling [] Bereavement support [] Provided bereavement packet [] Provided Bible/devotional materials [] Provided toy/stuffed animal, coloring book to patient or family member [] Provided Communion [] Anointing/[place] [] Salvation [x] Completed spiritual assessment [] Other: Impact on Illness or Injury [] Angry [] Fearful [] Anxious [] Often cries [] Exhaustion [] Unable to work [] Unable to attend mandaeism [] Unable to walk/stand [] Unable to read [] Unable to drive [] Unable to eat/drink [] Unable to sleep [] Unable to be with family [] Patient intubated [] Other: Summary Time spent with patient 5 min
[2024-04-25] MEDS: methylPREDNISolone sod succ 125 mg/2 mL INJ 60 MG IVP (10:17)
[2024-04-25] MEDS: bumetanide 0.25 mg/mL SDV 4 mL 1 MG IVP ×2 (10:17→21:16)
--- NOTE | 2024-04-25 16:23 | PC.NURSE ---
Physician orders to increase suboxone to 3 times daily. Also received orders to discontinue solu-medrol and replace with prednisone 60mg daily.
[2024-04-26] VITALS (13 sets, daily range): BP systolic 116–149; BP diastolic 46–75; PULSE 81–120; RESP 18–26; TEMP 36.5–36.6; O2SAT 92–97
[2024-04-26] MEDS: ALPRAZolam 0.5 mg Tablet 0.25 MG PO (02:00)
[2024-04-26 04:15] LABS: Basophils % 0.2 %; Hematocrit 31.2 % (36-47); Lymphocytes % 5.6 %; Mean Corpuscular HGB Conc 29.2 g/dL (30-55); Mean Corpuscular Hemoglobin 26.2 pg (27-33); Mean Corpuscular Volume 89.9 fl (85-98); Mean Platelet Volume 9.3 fL (7.4-10.4); Monocytes # 1.8 10^3/uL (0.2-0.9); Neutrophils # 14.71 10^3/uL (1.8-7.7); Neutrophils % 82.8 %; Nucleated Red Blood Cells % 0.1 %; Platelet Count 247 10^3/cmm (157-399); Red Blood Count 3.47 10^6/uL (3.85-5.65); Red Cell Distribution Width 16.6 % (12.1-15.1); White Blood Count 17.75 10^3/uL (3.29-11.43)
[2024-04-26 04:34] LABS: Anion Gap 10.2 (5-19); Blood Urea Nitrogen 24 mg/dL (8-23); Calcium 8.7 mg/dL (8.5-10.5); Carbon Dioxide 37 mmol/L (22-29); Chloride 92 mmol/L (98-107); Creatinine Clr Calc Pharmacy 35.7892; Glucose 99 mg/dL (65-115); Osmolality Calculated 284 mOsm/kg (285-295); Potassium 4.2 mmol/L (3.5-5.1); Sodium 135 mmol/L (136-145)
[2024-04-26] MEDS: budesonide 0.5 mg/2 mL Neb INHALATION (08:00)
[2024-04-26] MEDS: ipratropium-albuterol 3 mL Neb INHALATION ×3 (08:00→16:46)
--- NOTE | 2024-04-26 08:32 | P.PN_ITS ---
Subjective 2 Subjective: Sakina reports she feels a little bit better today. Less anxious. She was given a dose of Xanax last night secondary to anxiety. Feels like her breathing is slowly improving. She reports she is still wheezing significantly. Less edema in her lower extremities but now with some edema in her arms. Medications: Reviewed: Yes Vitals/I&O/Wt Last Vital Signs Temp 97.8 F 04/26/24 07:55 Pulse 101 H 04/26/24 08:00 Resp 18 04/26/24 08:00 BP 130/47 04/26/24 07:55 Pulse Ox 97 04/26/24 08:00 O2 Del Method Nasal Cannula 04/26/24 08:00 O2 Flow Rate 2.5 04/26/24 08:00 FiO2 40 04/24/24 09:30 04/25/24 04/26/24 04/26/24 22:59 06:59 14:59 Intake Total 840 / 2440 Output Total 900 / 900 2300 / 3200 Balance -60 / 1540 -2300 / -760 Weight last 48 hrs Weight 52.73 kg Weight 71.668 kg Weight 49.442 kg Weight 38.555 kg Physical Exam 2 Narrative: General exam is white female, mild respiratory distress, 1300 negative for the last 24 hours Neck is supple no lymphadenopathy thyromegaly Cardiovascular regular rate and rhythm with occasional premature beat. No murmur. Heart sounds distant Lungs bilateral expiratory wheezes, improved air movement bilaterally Abdomen is soft nontender with positive bowel sounds. Back demonstrates a small decubitus, right parathoracic area with no evidence of infection or erythema Extremities trace edema lower extremities bilaterally. No cyanosis. Some clubbing is noted. Trace edema in upper extremities with the exception of IV site on the right which is a little more. Urinary Catheter Management: Mayer: Cath Placed During This Visit: yes Reason for Continuing Indwelling Catheter: Accurate Measurement of Urinary Output in Critically Ill Patients Urinary Catheter Date of Insertion: 04/24/24 Urinary Catheter Time of Insertion: 11:35 Data 04/26/24 03:45 04/26/24 03:45 A&P Assessment and plan (1) COPD with acute exacerbation: Patient with evidence of acute COPD exacerbation Continue budesonide twice daily Continue DuoNeb every 4 hours She has had increasing anxiety. IV steroids discontinued and placed on prednisone. Hopefully tomorrow can decrease to 40 mg. White blood cell count is increasing. Will go ahead and placed on doxycycline. She has tolerated this in the past without allergy. Encourage abstinence from smoking. Continue nicotine patch (2) Acute respiratory failure with hypoxia and hypercarbia: Patient with evidence of acute hypoxic and hypercarbic respiratory failure She has been sleepy lately, with intermittent myoclonic jerks indicating elevated CO2 levels. This is about 20 above her baseline. She is now off BiPAP. She seems mentally clear. (3) Acute on chronic diastolic (congestive) heart failure: Patient with evidence of acute diastolic heart failure, superimposed on chronic. Likely this is secondary to cor pulmonale, known moderate aortic regurgitation Continue to diuresis with IV Bumex Close follow-up of electrolytes in the morning as well as magnesium Continue her home potassium No need for repeat echo at this time. (4) Anemia: Patient with significant anemia with hemoglobin less than 8 on April 25 Eliquis has been discontinued She was iron deficient, and given 2 doses of iron in the last 2 days. Third dose today. Await stool Hemoccult Continue Protonix to twice daily Transfuse 1 unit of packed red blood cells yesterday, and hemoglobin has increased to 9.1 With her degree of anemia she may not be a candidate for Eliquis in the future. Qualifiers: Anemia type: iron deficiency Iron deficiency anemia type: inadequate dietary iron intake Qualified Code(s): D50.8 - Other iron deficiency anemias (5) Metabolic alkalosis: Patient with longstanding metabolic alkalosis Continue acetazolamide to 50 mg daily Close follow-up of electrolytes (6) Acute kidney injury: Patient with evidence of acute kidney injury Mayer placed Likely this is cardiorenal Creatinine slightly improved (7) Lung cancer: Patient with past history of lung cancer, treated with radiation She has a costophrenic angle blunting on chest x-ray. This could be secondary to her cancer treatment and radiation versus congestive heart failure. Qualifiers: Laterality: unspecified laterality Lung location: unspecified part of lung Qualified Code(s): C34.90 - Malignant neoplasm of unspecified part of unspecified bronchus or lung Plan Decubitus right back. Keep pressure off area. This is been present for quite some time, and does not appear infected. Consider wound care as an outpatient. It is approximately three-quarter by 1 cm in diameter. It is a stage II ulcer. Multiple other medical problems as outlined in past medical history Full code SCDs for DVT prophylaxis Pharmacologic contraindicated at this time while exploration of anemia is occurring Attestations 2 Medical Necessity Statement*: Needs continued hospital stay for further diuresis secondary to acute diastolic heart failure as well as treatment of acute COPD exacerbation with steroids, frequent breathing treatments, doxycycline. Coding Level of Care Code [facility] Diagnoses COPD with acute exacerbation J44.1 Acute respiratory failure with hypoxia and hypercarbia J96.01; J96.02 Acute on chronic diastolic (congestive) heart failure I50.33 Iron deficiency anemia secondary to inadequate dietary iron intake D50.8 Anemia type: iron deficiency Iron deficiency anemia type: inadequate dietary iron intake Metabolic alkalosis E87.3 Acute kidney injury N17.9 Malignant neoplasm of lung, unspecified laterality, unspecified part of lung C34.90 Laterality: unspecified laterality Lung location: unspecified part of lung
[2024-04-26] MEDS: levothyroxine 25 mcg Tablet PO (09:34)
[2024-04-26] MEDS: acetaZOLAMIDE 250 mg Tablet PO (09:34)
[2024-04-26] MEDS: potassium chloride oral liq 20 mEq/15 mL UDC 10 MEQ PO ×2 (09:34→17:16)
[2024-04-26] MEDS: metoprolol tartrate 25 mg Tablet PO ×2 (09:34→17:16)
[2024-04-26] MEDS: roflumilast 500 mcg Tablet PO (09:34)
[2024-04-26] MEDS: doxycycline 100 mg Tablet PO ×2 (09:35→17:16)
[2024-04-26] MEDS: predniSONE 20 mg Tablet 60 MG PO (09:35)
[2024-04-26] MEDS: pantoprazole DR 40 mg Tablet PO ×2 (09:35→17:16)
[2024-04-26] MEDS: calcitriol 0.25 mcg Capsule 0.5 MCG PO (09:35)
[2024-04-26] MEDS: magnesium oxide 400 mg tablet PO (09:35)
[2024-04-26] MEDS: bumetanide 0.25 mg/mL SDV 4 mL 1 MG IVP ×2 (09:36→21:39)
[2024-04-26] MEDS: buprenorphine-naloxone 4-1 mg Film 2 EACH SUBLINGUAL ×3 (09:36→21:39)
[2024-04-26] MEDS: nicotine 21 mg Patch 1 PATCH TRANSDERMA (09:36)
--- NOTE | 2024-04-26 11:03 | PC.NURSE ---
Provider notified that patients right elbow and upper arm is swollen. Patient said it is tender to touch. The area is not red or warm to the touch. Provider ordered to elevate and observe.
[2024-04-27] VITALS (12 sets, daily range): BP systolic 105–154; BP diastolic 46–87; PULSE 90–117; RESP 14–26; TEMP 36.6–36.7; O2SAT 90–98
[2024-04-27] MEDS: ipratropium-albuterol 3 mL Neb INHALATION ×4 (01:31→11:32)
[2024-04-27 04:31] LABS: Basophils % 0.1 %; Hematocrit 31.2 % (36-47); Lymphocytes # 0.9 10^3/uL (0.8-4.8); Lymphocytes % 5.8 %; Mean Corpuscular HGB Conc 29.2 g/dL (30-55); Mean Corpuscular Hemoglobin 25.8 pg (27-33); Mean Corpuscular Volume 88.4 fl (85-98); Mean Platelet Volume 9.6 fL (7.4-10.4); Monocytes # 1.1 10^3/uL (0.2-0.9); Monocytes % 7.5 %; Neutrophils % 84.1 %; Nucleated Red Blood Cells % 0.1 %; Platelet Count 228 10^3/cmm (157-399); Red Blood Count 3.53 10^6/uL (3.85-5.65); Red Cell Distribution Width 16.9 % (12.1-15.1); White Blood Count 14.62 10^3/uL (3.29-11.43)
[2024-04-27 04:55] LABS: Anion Gap 12.5 (5-19); Blood Urea Nitrogen 31 mg/dL (8-23); Carbon Dioxide 36 mmol/L (22-29); Chloride 91 mmol/L (98-107); Glucose 119 mg/dL (65-115); Osmolality Calculated 290 mOsm/kg (285-295); Potassium 3.5 mmol/L (3.5-5.1); Sodium 136 mmol/L (136-145)
[2024-04-27] MEDS: guaiFENesin 600 mg Tablet PO (04:56)
[2024-04-27 05:00] LABS: Creatinine Clr Calc Pharmacy 28.5647
[2024-04-27] MEDS: budesonide 0.5 mg/2 mL Neb INHALATION (07:51)
[2024-04-27] MEDS: magnesium oxide 400 mg tablet PO (09:11)
[2024-04-27] MEDS: roflumilast 500 mcg Tablet PO (09:11)
[2024-04-27] MEDS: levothyroxine 25 mcg Tablet PO (09:12)
[2024-04-27] MEDS: pantoprazole DR 40 mg Tablet PO (09:12)
[2024-04-27] MEDS: predniSONE 20 mg Tablet 60 MG PO (09:12)
[2024-04-27] MEDS: buprenorphine-naloxone 4-1 mg Film 2 EACH SUBLINGUAL ×2 (09:12→14:48)
[2024-04-27] MEDS: doxycycline 100 mg Tablet PO (09:12)
[2024-04-27] MEDS: acetaZOLAMIDE 250 mg Tablet PO (09:12)
[2024-04-27] MEDS: potassium chloride oral liq 20 mEq/15 mL UDC 10 MEQ PO (09:13)
[2024-04-27] MEDS: calcitriol 0.25 mcg Capsule 0.5 MCG PO (09:13)
[2024-04-27] MEDS: nicotine 21 mg Patch 1 PATCH TRANSDERMA (09:13)
[2024-04-27] MEDS: metoprolol tartrate 25 mg Tablet PO (09:13)
[2024-04-27] MEDS: bumetanide 1 mg Tablet PO (09:15)
[2024-04-27] MEDS: loratadine 10 mg Tablet PO (09:15)
--- NOTE | 2024-04-27 12:40 | USCV_ITS ---
Sakina Lombardi Age: 74 Gender: F : 1950 Exam Date: 04/27/2024 12:55 Ordering Phys: Rony Pope MD Technologist: Exam [place] [facility] [place]: rt arm pain and swelling PROCEDURES: Venous duplex imaging was performed in only the right upper extremity. The following venous structures were evaluated: internal jugular vein, subclavian vein, axillary vein, and brachial veins. In addition, the basilic vein, cephalic vein, radial vein, and ulnar vein. FINDINGS: No evidence of deep vein thrombosis or superficial thrombophlebitis in the upper extremity. CONCLUSIONS No evidence of thrombus of the right upper extremity veins. Leonel Wall MD (Electronically Signed) Final Date: 27 Apr 2024 14:51 S
--- NOTE | 2024-04-27 13:05 | PM.DCS ---
Discharge Providers Date of Admission: 04/24/24 12:47 Date of Discharge: April 27, 2024 Attending Provider at Admission: Rony Pope MD Attending Provider at Discharge: Rony Pope MD Primary Care Provider: Kitty Holt MD Diagnoses at Discharge Discharge Diagnosis (1) COPD with acute exacerbation: Status: Acute (2) Acute respiratory failure with hypoxia and hypercarbia: Status: Acute (3) Acute on chronic diastolic (congestive) heart failure: Status: Chronic (4) Anemia: Status: Acute Qualifiers: Anemia type: iron deficiency Iron deficiency anemia type: inadequate dietary iron intake Qualified Code(s): D50.8 - Other iron deficiency anemias (5) Metabolic alkalosis: Status: Acute (6) Acute kidney injury: Status: Acute (7) Lung cancer: Status: Chronic Qualifiers: Laterality: unspecified laterality Lung location: unspecified part of lung Qualified Code(s): C34.90 - Malignant neoplasm of unspecified part of unspecified bronchus or lung Reason for Visit Reason for Visit: SOB Hospital Course Hospital Course Patient is a 74-year-old white female with severe COPD on 3 L of oxygen chronically who presented to the hospital with edema consistent with diastolic heart failure, COPD exacerbation. She was started on IV steroids, IV diuresis, budesonide and DuoNeb. She also had significant anemia and anemia panel demonstrated iron deficiency. She was ultimately transfused 1 unit of packed red blood cells. Secondary to iron deficiency she was given IV iron while in the hospital for supplementation. Stool Hemoccult was ordered but ultimately never collected. She also had acute kidney injury, thought to be cardiorenal, that improved with diuresis. Over the course of her hospitalization she diuresed over 4 L. Oxygen requirement was back to baseline. She was also placed on doxycycline secondary to increased sputum production and her severe COPD. By April 27 she was wishing to go home. She will be discharged back on her home oxygen, finish up her course of prednisone, follow-up with her primary care provider 3 to 5 days with a BMP and a CBC. Her Eliquis will continue to be held on discharge and risks of stroke were discussed. On follow-up with her primary care provider they can be decided after lab was obtained whether she should go back on anticoagulants. She was previously on 2.5 mg of Eliquis twice daily. I discontinued her muscle relaxant as this can contribute to increased CO2 retention. We discussed her narcotic, but she was resistant to lowering this dose any. She reports she will try to stop smoking cigarettes. She was given opportunity ask questions and agreed with plan. She did have an IV infiltrate in her right upper extremity. An ultrasound was done prior to discharge demonstrating no significant fluid collection and no venous embolism. Physical Exam Narrative: General exam no distress Cardiovascular regular rate and rhythm Lungs occasional bilateral expiratory wheezes. Diminished breath sounds bilaterally Abdomen is soft Extremities trace edema left lower extremity. Right upper extremity without any skin breakdown. Urinary Catheter Management: Mayer: Cath Placed During This Visit: yes Reason for Continuing Indwelling Catheter: Accurate Measurement of Urinary Output in Critically Ill Patients Urinary Catheter Date of Insertion: 04/24/24 Urinary Catheter Time of Insertion: 11:35 Discharge Data Studies Completed and Pending Completed Studies During Hospitalization Category Date Time Status XR chest 1V portable [id number] Stat Exams 04/24/24 09:09 Completed Pending at discharge Category Date Time Status Fecal Occult Blood [Immunochemical Fecal OCB] Routine Lab 04/24/24 13:15 [place] [id number] Routine Ultrasound 04/27/24 12:40 Ordered Radiology Impressions Chest X-Ray 04/24/24 09:09 IMPRESSION: Interval minimal blunting of the right costophrenic angle. Laboratory Results WBC 14.62 10^3/uL (3.29-11.43) H 04/27/24 03:48 RBC 3.53 10^6/uL (3.85-5.65) L 04/27/24 03:48 Hgb 9.10 g/dL (11.27-16.99) L 04/27/24 03:48 Hct 31.2 % (36-47) L 04/27/24 03:48 MCV 88.4 fl (85-98) 04/27/24 03:48 MCH 25.8 pg (27-33) L 04/27/24 03:48 MCHC 29.2 g/dL (30-55) L 04/27/24 03:48 RDW 16.9 % (12.1-15.1) H 04/27/24 03:48 Plt Count 228 10^3/cmm (157-399) 04/27/24 03:48 MPV 9.6 fL (7.4-10.4) 04/27/24 03:48 Neut % (Auto) 84.1 % 04/27/24 03:48 Lymph % (Auto) 5.8 % 04/27/24 03:48 Greenlee % (Auto) 7.5 % 04/27/24 03:48 Eos % (Auto) 0.0 % 04/27/24 03:48 Baso % (Auto) 0.1 % 04/27/24 03:48 Neut # (Auto) 12.30 10^3/uL (1.8-7.7) H 04/27/24 03:48 Lymph # (Auto) 0.9 10^3/uL (0.8-4.8) 04/27/24 03:48 Greenlee # (Auto) 1.1 10^3/uL (0.2-0.9) H 04/27/24 03:48 Eos # (Auto) 0.0 10^3/uL (0.0-0.8) 04/27/24 03:48 Baso # (Auto) 0.0 10^3/uL (0.0-0.1) 04/27/24 03:48 Nucleated RBC % (auto) 0.1 % 04/27/24 03:48 Nucleated RBCs # 0.0 /100WBC 04/27/24 03:48 Specimen Type Arterial 04/24/24 09:16 Sample Site Radial, left 04/24/24 09:16 ABG pH 7.37 (7.35-7.45) 04/24/24 09:16 ABG pCO2 74.5 mmHg (35-45) H* 04/24/24 09:16 ABG pO2 110.0 mmHg (80.0-100.0) H 04/24/24 09:16 ABG HCO3 42.8 mmol/L (22-26) H 04/24/24 09:16 ABG O2 Saturation 99.4 04/24/24 09:16 ABG Base Excess 15.6 mmol/L (-2.0-2.0) H 04/24/24 09:16 Ankush Test Pos 04/24/24 09:16 A-a O2 Gradient Not Reportable 04/24/24 09:16 Hematocrit 22.6 % (37-47) L 04/24/24 09:16 Hgb O2 Saturation 96.0 % (95-100) 04/24/24 09:16 Carboxyhemoglobin 2.5 %THgb (0.4-20.1) 04/24/24 09:16 Methemoglobin 0.9 % (0.4-1.5) 04/24/24 09:16 Total Hemoglobin 7.4 g/dL (12-16) L 04/24/24 09:16 Sodium 145.0 mmol/L (131-143) H 04/24/24 09:16 Potassium 3.5 mmol/L (3.5-5.0) 04/24/24 09:16 Glucose 115.0 mg/dL (70-115) 04/24/24 09:16 Ionized Calcium 1.2 mmol/L (1.1-1.4) 04/24/24 09:16 O2 Delivery Device Bipap 04/24/24 09:16 O2 Liters/Min 15.0 % 04/24/24 09:16 Security Incident Response Engineer ID Walci 04/24/24 09:16 Sodium 136 mmol/L (136-145) 04/27/24 03:48 Potassium 3.5 mmol/L (3.5-5.1) 04/27/24 03:48 Chloride 91 mmol/L (98-107) L 04/27/24 03:48 Carbon Dioxide 36 mmol/L (22-29) H 04/27/24 03:48 Anion Gap 12.5 (5-19) 04/27/24 03:48 BUN 31 mg/dL (8-23) H 04/27/24 03:48 Creatinine 1.3 mg/dL (0.5-0.9) H 04/27/24 03:48 GFR Calculation Not Reportable 04/27/24 03:48 Glucose 119 mg/dL (65-115) H 04/27/24 03:48 Calculated Osmolality 290 mOsm/kg (285-295) 04/27/24 03:48 Calcium 9.0 mg/dL (8.5-10.5) 04/27/24 03:48 Magnesium 2.0 mg/dL (1.7-2.3) 04/26/24 03:45 Iron 12 ug/dL (37-145) L 04/24/24 09:41 TIBC 394 mcg/dl 04/24/24 09:41 % Saturation 3.0 % (20-50) L 04/24/24 09:41 Unsat Iron Binding 382 ug/dL (112-347) H 04/24/24 09:41 Ferritin 10 ng/mL (15-150) L 04/24/24 09:41 Total Bilirubin 0.2 mg/dL (0.15-1.2) 04/25/24 02:38 AST 23 U/L (0-32) 04/25/24 02:38 ALT 14 U/L (0-33) 04/25/24 02:38 Alkaline Phosphatase 96 U/L (35-105) 04/25/24 02:38 Troponin T Baseline 48 ng/L (0-10) H 04/24/24 09:41 Troponin T 120 Minute 53.65 ng/L (0-10) H 04/24/24 11:52 Delta Troponin T 5.65 ABS# (0-10) 04/24/24 11:52 Troponin T Hi Sens 6Hr 48.64 ng/L (0-10) H 04/24/24 15:11 Troponin T Hi Sens 6Hr Delta 0.64 ng/L (0-12) 04/24/24 15:11 C-Reactive Protein 9.8 mg/L (0.0-4.9) H 04/24/24 09:41 NT-Pro-B Natriuret Pep 1237 pg/mL (0-450) H 04/24/24 09:41 Total Protein 6.4 g/dL (6.6-8.7) L 04/25/24 02:38 Albumin 3.5 g/dL (3.5-5.2) 04/25/24 02:38 Globulin 2.9 g/dL (1.3-4.6) 04/25/24 02:38 Vitamin B12 658 pg/mL (232-1245) 04/24/24 09:41 Folate 7.6 ng/mL (4.8-37.3) 04/24/24 09:41 TSH 5.67 uIU/mL (0.27-4.20) H 04/24/24 09:41 Urine Color Yellow (Yellow) 04/24/24 11:33 Urine Appearance Clear (CLEAR) 04/24/24 11:33 Urine pH 6 (5-7) 04/24/24 11:33 Ur Specific [place] 1.015 (1.005-1.030) 04/24/24 11:33 Urine Protein Neg (Negative) 04/24/24 11:33 Urine Glucose (UA) Norm (Normal) 04/24/24 11:33 Urine Ketones Negative (Negative) 04/24/24 11:33 Urine Blood Neg (Negative) 04/24/24 11:33 Urine Nitrate Negative (Negative) 04/24/24 11:33 Urine Bilirubin Neg (Negative) 04/24/24 11:33 Urine Urobilinogen Neg mg/dL (Negative) 04/24/24 11:33 Ur Leukocyte Esterase Negative (Negative) 04/24/24 11:33 Urine RBC None /hpf (0-2) 04/24/24 11:33 Urine WBC None /hpf (0-5) 04/24/24 11:33 Ur Squamous Epith Cells 10-15 /hpf (0-5) H 04/24/24 11:33 Amorphous Sediment Not Reportable 04/24/24 11:33 Urine Bacteria Trace /hpf (NONE) 04/24/24 11:33 Hyaline Casts 0-4 /lpf H 04/24/24 11:33 Blood Type A Positive 04/25/24 08:13 Rho(D) Type Rh positive 04/25/24 08:13 Antibody Screen Negative 04/25/24 08:13 Crossmatch See Detail 04/25/24 08:13 Vitals Last Vital Signs Temp 98.0 F 04/27/24 07:33 Pulse 105 H 04/27/24 12:00 Resp 23 H 04/27/24 12:00 BP 154/70 04/27/24 12:00 Pulse Ox 90 04/27/24 12:00 O2 Del Method Nasal Cannula 04/27/24 12:00 O2 Flow Rate 3 04/27/24 11:32 FiO2 40 04/24/24 09:30 Discharge Plan Discharge Patient Disposition: Home Health Service Condition: Stable Prescriptions: New pantoprazole 40 mg Tablet,Delayed Release (Dr/Ec) 40 mg PO BID Qty: 60 0RF loratadine 10 mg Tablet 10 mg PO DAILY Qty: 30 0RF doxycycline monohydrate 100 mg Tablet 100 mg PO BID Qty: 14 0RF guaifenesin [Mucinex] 600 mg Tablet Extended Release 12hr 600 mg PO BID Qty: 14 0RF prednisone 20 mg tablet 20 mg PO BID 5 Days Qty: 10 0RF Continued metoprolol tartrate 25 mg tablet 25 mg PO BID Qty: 60 5RF fluticasone propion-salmeterol [Advair Diskus] 500-50 mcg/dose blister with device 1 inh inhalation BID Qty: 60 3RF lidocaine-prilocaine 2.5-2.5 % cream 1 applic topical DAILY PRN (Reason: pain) Qty: 50 3RF potassium chloride 20 mEq/15 mL liquid 10 meq PO BID Qty: 450 2RF ondansetron 4 mg tablet,disintegrating 4 mg PO Q8H PRN (Reason: nausea and vomiting) Qty: 30 1RF nitrofurantoin monohyd/m-cryst [Macrobid] 100 mg capsule 100 mg PO Q12H 5 Days Qty: 10 0RF Rx Instructions: must administer with a meal/food Ed A-Hist DM 4-10-15 mg/5 mL liquid 5 ml PO Q6H PRN (Reason: cold symptoms) Qty: 160 2RF calcitriol [Rocaltrol] 0.5 mcg capsule 0.5 mcg PO DAILY Qty: 90 3RF albuterol sulfate 90 mcg/actuation HFA aerosol inhaler 2 puff inhalation Q4H PRN (Reason: shortness of breath or wheezing) Qty: 6.7 3RF montelukast 4 mg tablet,chewable 8 mg PO DAILY Qty: 60 5RF cilostazol 50 mg tablet 50 mg PO BID Qty: 90 3RF bumetanide 1 mg tablet 1 mg PO BID roflumilast 500 mcg tablet 500 mcg PO DAILY magnesium oxide 400 mg magnesium Capsule 400 mg PO DAILY levothyroxine 25 mcg tablet 25 mcg PO DAILY hydrocodone-acetaminophen 7.5-325 mg tablet 1 tab PO Q8H PRN (Reason: Pain) lidocaine 5 % adhesive patch,medicated 1 - 3 patch transdermal DAILY PRN (Reason: Pain) Rx Instructions: on for 12 hours off for 12 hours atorvastatin 40 mg tablet 20 mg PO Q72H nitroglycerin [Nitrostat] 0.4 mg Tablet, Sublingual 0.4 mg SUBLINGUAL Q5M PRN (Reason: Chest Pain) Rx Instructions: do not exceed 3 doses per episode budesonide 0.5 mg/2 mL suspension for nebulization 0.5 mg inhalation BID PRN (Reason: Shortness Of Breath Or Wheezing) Suboxone 8-2 mg Film 1 film BUCCAL TID Discontinued Eliquis 2.5 mg tablet 2.5 mg PO BID Qty: 60 5RF pantoprazole 40 mg tablet,delayed release (DR/EC) 40 mg PO DAILY Qty: 90 3RF baclofen 10 mg tablet 10 mg PO Q8H PRN (Reason: muscle spasm) Qty: 90 0RF Suboxone 8-2 mg Film 1 film BUCCAL TID Discharge Orders: Discharge Order (Routine); Ordered 04/27/24 Ordered By: Rony Pope Referrals: [facility] [Other] Kitty Holt MD [Primary Care Provider] - 4-7 days (CBC and BMP on follow-up) Discharge Diet: Cardiac Discharge Activity: Increase activity as tolerated Patient Instructions: Heart Failure (DC), CHF Stoplight, Opioid Safety Activity Restrictions/Additional Instructions: Follow-up with your primary care provider 3 days to 5 days with CBC and BMP Take all medicine as prescribed Return as needed Resume your 3 L of oxygen per nasal cannula [facility] on discharge No smoking Primary care provider to reassess on follow-up after CBC whether Eliquis should be continued. You may continue your Suboxone 3 times daily. Follow-up with pain clinic regarding this. Level 6 diet consistency, dysphagia Discharge Attestations Time Spent in Discharge Care*: greater than 30 min Quality Metrics Clinical Quality Measures [ No reported AMI, CVA or VTE this stay] Coding Level of Care Code 95577 Total time (in minutes) for Discharge: 40 Diagnoses COPD with acute exacerbation J44.1 Acute respiratory failure with hypoxia and hypercarbia J96.01; J96.02 Acute on chronic diastolic (congestive) heart failure I50.33 Iron deficiency anemia secondary to inadequate dietary iron intake D50.8 Anemia type: iron deficiency Iron deficiency anemia type: inadequate dietary iron intake Metabolic alkalosis E87.3 Acute kidney injury N17.9 Malignant neoplasm of lung, unspecified laterality, unspecified part of lung C34.90 Laterality: unspecified laterality Lung location: unspecified part of lung
[2024-04-27] MEDS: atorvastatin 40 mg Tablet 20 MG PO (14:48)
--- NOTE | 2024-04-27 15:55 | PC.NURSE ---
port-a-cath flushed with 10 cc ns..then with 500 units of heparin.port de-accessed using aseptic technique.bandaid applied.pt tolerated procedure well.
--- NOTE | 2024-04-27 16:26 | PC.NURSE ---
discharge instructions given and explained.pt verb understanding of instructions.discharged via w/c to exit at this time.son to drive pt home
== END 2024-04-27 16:27 | disposition home health service (06) | DRG 291 ==
LOC: ER 10:55 → CSU 12:47
PROVIDERS: Admitting Provider Internal Medicine; Emergency Provider Emergency Medicine; PCP Family Medicine; Visit Provider Internal Medicine
DX: I50.33 Acute on chronic diastolic (congestive) heart failure (principal); J96.02 Acute respiratory failure with hypercapnia; J96.21 Acute and chronic respiratory failure with hypoxia; J44.1 Chronic obstructive pulmonary disease with (acute) exacerbation; N17.9 Acute kidney failure, unspecified; E87.3 Alkalosis; D50.9 Iron deficiency anemia, unspecified; F41.9 Anxiety disorder, unspecified; Z85.118 Personal history of other malignant neoplasm of bronchus and lung; Z79.01 Long term (current) use of anticoagulants; Z99.81 Dependence on supplemental oxygen; I25.10 Atherosclerotic heart disease of native coronary artery without angina pectoris; F17.210 Nicotine dependence, cigarettes, uncomplicated; L89.102 Pressure ulcer of unspecified part of back, stage 2
CPT/HCPCS: 36415; 36430; 36591; 36600; 51702; 71045; 80048; 80051; 80053; 81001; 82330; 82607; 82728; 82746; 82805; 83540; 83550; 83735; 83880; 84443; 84484; 85025; 86140; 86850; 86900; 86920; 93005; 93971; 94640; 94660; 96374; 96375; 96376; 99291; J0573; J1642; J1756; J1940; J2919; J3490; J7512; J7626; P9016

== ENCOUNTER 2024-05-05 15:39 | Outpatient (CLI) | payer MEDICAID, SELFPAY ==
[2024-05-05 15:57] LABS: Basophils % 0.1 %; Eosinophils # 0.2 10^3/uL (0.0-0.8); Eosinophils % 1.3 %; Hematocrit 36.6 % (36-47); Mean Corpuscular HGB Conc 28.4 g/dL (30-55); Mean Corpuscular Hemoglobin 26.7 pg (27-33); Mean Corpuscular Volume 93.8 fl (85-98); Mean Platelet Volume 9.4 fL (7.4-10.4); Monocytes # 0.8 10^3/uL (0.2-0.9); Monocytes % 6.4 %; Neutrophils # 10.47 10^3/uL (1.8-7.7); Neutrophils % 83.2 %; Nucleated Red Blood Cells % 0 %; Platelet Count 195 10^3/cmm (157-399); Red Cell Distribution Width 20.2 % (12.1-15.1); White Blood Count 12.58 10^3/uL (3.29-11.43)
[2024-05-05 16:20] LABS: Anion Gap 8.3 (5-19); Blood Urea Nitrogen 12 mg/dL (8-23); Calcium 7.9 mg/dL (8.5-10.5); Chloride 89 mmol/L (98-107); Glucose 152 mg/dL (65-115); Osmolality Calculated 285 mOsm/kg (285-295); Potassium 3.3 mmol/L (3.5-5.1); Sodium 136 mmol/L (136-145)
[2024-05-05 16:35] LABS: Carbon Dioxide 42 mmol/L (22-29)
== END 2024-05-05 15:40 | disposition home or self-care (01) ==
LOC: LAB 15:40
PROVIDERS: PCP Family Medicine; Visit Provider Family Medicine
DX: E87.3 Alkalosis (principal); J44.1 Chronic obstructive pulmonary disease with (acute) exacerbation
CPT/HCPCS: 80048; 85025

== ENCOUNTER → 2024-05-09 15:34 | Outpatient (BNVA) | payer MEDICAID, SELFPAY | PROVIDERS: PCP Family Medicine; Visit Provider Family Medicine | DX: D50.8 Other iron deficiency anemias (principal); J43.2 Centrilobular emphysema; J44.1 Chronic obstructive pulmonary disease with (acute) exacerbation | CPT/HCPCS: 80053; 85025 ==

== ENCOUNTER 2024-05-24 15:38 | Oncology outpatient (recurring) (ONCR) | payer MEDICAID, SELFPAY | END 2024-05-28 23:59 | disposition home or self-care (01) | PROVIDERS: PCP Family Medicine; Visit Provider Internal Medicine Medical Oncology | DX: Z53.9 Procedure and treatment not carried out, unspecified reason (principal); Z45.2 Encounter for adjustment and management of vascular access device | CPT/HCPCS: 36591; 96523 ==

== ENCOUNTER → 2024-05-29 14:01 | Outpatient (BNVA) | payer MEDICAID, SELFPAY | PROVIDERS: PCP Family Medicine; Visit Provider Thoracic Surgery (Cardiothoracic Vascular Surgery) | DX: I96 Gangrene, not elsewhere classified (principal); L97.811 Non-pressure chronic ulcer of other part of right lower leg limited to breakdown of skin; L98.421 Non-pressure chronic ulcer of back limited to breakdown of skin | CPT/HCPCS: 97597 ==

== ENCOUNTER → 2024-06-05 15:26 | Outpatient (BNVA) | payer MEDICAID, SELFPAY | PROVIDERS: PCP Family Medicine; Visit Provider Nurse Practitioner Family | DX: I96 Gangrene, not elsewhere classified (principal); I87.2 Venous insufficiency (chronic) (peripheral); L98.422 Non-pressure chronic ulcer of back with fat layer exposed; L97.821 Non-pressure chronic ulcer of other part of left lower leg limited to breakdown of skin; L98.491 Non-pressure chronic ulcer of skin of other sites limited to breakdown of skin | CPT/HCPCS: 11042; 97597 ==

== ENCOUNTER 2024-06-20 13:50 | Oncology outpatient (recurring) (ONCR) | payer MEDICAID, SELFPAY ==
--- NOTE | 2024-06-20 | US_ITS ---
NOTE: Original Signature date and time was: 06/20/24 @ 1549 ADDENDUM WS: [id number] ADDITIONAL VIEWS RIGHT MAMMOGRAM WITH DIGITAL BREAST TOMOSYNTHESIS. RIGHT BREAST ULTRASOUND, limited HISTORY: LUMP RT BREAST COMPARISON: 01/03/2024, 10/12/2022 RESULTS CALLED TO DEEPTHI AT DR BURTON OFFICE 06/20/24 @ 1558 Addendum Dictated By: Allie Pascual DO Addendum Signed By: Allie Pascual DO Signed Date/Time: 06/21/24 1603 Addendum Cosigned By: WS: [id number] ADDITIONAL VIEWS RIGHT MAMMOGRAM WITH DIGITAL BREAST TOMOSYNTHESIS. RIGHT BREAST ULTRASOUND, limited HISTORY: LUMP RT BREAST COMPARISON: 01/03/2024, 10/12/2022 RIGHT MAMMOGRAM: Spot compression views and true ML with digital breast tomosynthesis and SM. There is very minimal breast thickening which corresponds to the palpable marker in the upper outer quadrant. This is very subtle and only seen only on the compression view RIGHT MLO. There are additional benign calcifications. RIGHT BREAST ULTRASOUND 2-D and color Doppler imaging submitted. Ultrasound is directed to the area of concern. At 10:00, 8 cm from the nipple is a hypoechoic mass. There is a very vague hypoechoic soft tissue nodule without increased vascularity. This nodule measures 1.1 x 0.7 x 0.8 cm. This is palpable over very difficult to see by ultrasound. This corresponds to the area of concern. This was not present on the prior ultrasound from 01/03/2024. MM/[place] [id number] IMPRESSION: BI-RADS: 4-Suspicious Finding-Biopsy Should Be Considered FOLLOW UP: Biopsy Recommended 1. There is a very vague hypoechoic mass 10:00 RIGHT breast near the axilla which corresponds to the palpable abnormality. Visibly this mass is presenting with bulging of the soft tissue but very difficult to see by imaging. This should be further evaluated by biopsy at this time. This could be an area of fat necrosis. Recommend follow-up ultrasound guided biopsy. Dictated By: Allie Pascual DO Signed By: Ankur,Allie A DO Signed Date/Time: 06/20/24 1555 DD/ 1549 MTDD
[2024-06-20 14:17] LABS: Basophils # 0.1 10^3/uL (0.0-0.1); Basophils % 0.5 %; Eosinophils # 0.3 10^3/uL (0.0-0.8); Eosinophils % 3.1 %; Lymphocytes # 1.5 10^3/uL (0.8-4.8); Mean Corpuscular Hemoglobin 27.3 pg (27-33); Mean Corpuscular Volume 90.9 fl (85-98); Mean Platelet Volume 9.9 fL (7.4-10.4); Monocytes # 0.9 10^3/uL (0.2-0.9); Monocytes % 9.2 %; Neutrophils % 70.5 %; Nucleated Red Blood Cells % 0 %; Platelet Count 196 10^3/cmm (157-399); Red Blood Count 3.85 10^6/uL (3.85-5.65); Red Cell Distribution Width 18.2 % (12.1-15.1); White Blood Count 9.65 10^3/uL (3.29-11.43)
[2024-06-20 14:37] LABS: Anion Gap 14.1 (5-19); Blood Urea Nitrogen 13 mg/dL (8-23); Calcium 8.9 mg/dL (8.5-10.5); Carbon Dioxide 37 mmol/L (22-29); Chloride 94 mmol/L (98-107); Glucose 162 mg/dL (65-115); Osmolality Calculated 298 mOsm/kg (285-295); Potassium 3.1 mmol/L (3.5-5.1); Sodium 142 mmol/L (136-145)
--- NOTE | 2024-06-20 15:29 | MM_ITS ---
WS: [id number] ADDITIONAL VIEWS RIGHT MAMMOGRAM WITH DIGITAL BREAST TOMOSYNTHESIS. RIGHT BREAST ULTRASOUND, limited HISTORY: LUMP RT BREAST COMPARISON: 01/03/2024, 10/12/2022 RIGHT MAMMOGRAM: Spot compression views and true ML with digital breast tomosynthesis and SM. There is very minimal breast thickening which corresponds to the palpable marker in the upper outer q uadrant. This is very subtle and only seen only on the compression view RIGHT MLO. There are addition al benign calcifications. RIGHT BREAST ULTRASOUND 2-D and color Doppler imaging submitted. Ultrasound is directed to the area of concern. At 10:00, 8 cm from the nipple is a hypoechoic mass. T here is a very vague hypoechoic soft tissue nodule without increased vascularity. This nodule measure s 1.1 x 0.7 x 0.8 cm. This is palpable over very difficult to see by ultrasound. This corresponds to the area of concern. This was not present on the prior ultrasound from 01/03/2024. MM/[place] [id number] IMPRESSION: BI-RADS: 4-Suspicious Finding-Biopsy Should Be Considered FOLLOW UP: Biopsy Recommended 1. There is a very vague hypoechoic mass 10:00 RIGHT breast near the axilla wh ich corresponds to the palpable abnormality. Visibly this mass is presenting wi th bulging of the soft tissue but very difficult to see by imaging. This should be further evaluated by biopsy at this time. This could be an area of fat necr osis. Recommend follow-up ultrasound guided biopsy.
--- NOTE | 2024-06-28 14:02 | US_ITS ---
WS: [id number] ULTRASOUND-GUIDED RIGHT BREAST BIOPSY HISTORY: MASS OF R BREAST, mass closer to the RT axillary tail. COMPARISON: 06/20/2024, 01/03/2024 Procedure, risks and complications are explained to the patient. Medications are reviewed. Consent is obtained. The mass in the RIGHT breast is localized with ultrasound. Skin is cleansed with ChloraPrep and anest hetized with 1% buffered lidocaine. Small dermatome is made. Under sterile conditions mass is biopsie d with a 14-gauge Achieve needle. Multiple core biopsies are performed. Material placed in formalin a nd sent to pathology for review. No complications encountered. Breast tissue marker (Bard ultrasound enhanced ribbon): None. Patient left the radiology suite with no complications. Patient is instructed to return to [facility] or [facility] with any concerns. US/[place] [id number] IMPRESSION: 1. Uncomplicated core needle biopsy RIGHT breast mass at 10:00, 8 cm from mete rs from the nipple. This is a very poorly defined mass by imaging. This is very palpable and according to the patient increasing in size. PATHOLOGY: Benign adipose connective tissue with focal fibrous tissue with rare benign vessels and nerves. No atypia or malignancy. RECOMMENDATION: As this mass is increasing in size and there is very subtle cj nge in soft tissue architecture by imaging if further evaluation is clinically necessary this area should be surgically removed. Recommend surgical consultati on. No malignancy was identified by pathology.
== END 2024-06-28 23:59 | disposition home or self-care (01) ==
LOC: RAD 06-28 13:49 → ONCMED 06-28 15:20
PROVIDERS: PCP Family Medicine; Visit Provider Family Medicine
DX: N63.11 Unspecified lump in the right breast, upper outer quadrant
CPT/HCPCS: 11042; 19083; 36591; 76641; 77061; 80048; 85025; 88305; 97597; G0279

== ENCOUNTER → 2024-06-27 10:22 | Outpatient (BNVA) | payer MEDICAID, SELFPAY | PROVIDERS: PCP Family Medicine; Visit Provider Thoracic Surgery (Cardiothoracic Vascular Surgery) | DX: I96 Gangrene, not elsewhere classified (principal); L98.421 Non-pressure chronic ulcer of back limited to breakdown of skin; Z09 Encounter for follow-up examination after completed treatment for conditions other than malignant neoplasm | CPT/HCPCS: 97597 ==

== ENCOUNTER → 2024-07-04 14:21 | Outpatient (BNVA) | payer MEDICAID, SELFPAY | PROVIDERS: PCP Family Medicine; Visit Provider Thoracic Surgery (Cardiothoracic Vascular Surgery) | DX: I96 Gangrene, not elsewhere classified (principal); L98.421 Non-pressure chronic ulcer of back limited to breakdown of skin | CPT/HCPCS: 97597 ==

== ENCOUNTER → 2024-07-18 14:00 | Outpatient (BNVA) | payer MEDICAID, SELFPAY | PROVIDERS: PCP Family Medicine; Visit Provider Thoracic Surgery (Cardiothoracic Vascular Surgery) | DX: I96 Gangrene, not elsewhere classified (principal); L98.421 Non-pressure chronic ulcer of back limited to breakdown of skin | CPT/HCPCS: 80053; 97597 ==

== ENCOUNTER 2024-07-24 15:27 | Oncology outpatient (recurring) (ONCR) | payer MEDICAID, SELFPAY | END 2024-07-29 23:59 | disposition home or self-care (01) | PROVIDERS: PCP Family Medicine; Visit Provider Family Medicine | DX: Z45.2 Encounter for adjustment and management of vascular access device (principal); I96 Gangrene, not elsewhere classified; L98.421 Non-pressure chronic ulcer of back limited to breakdown of skin | CPT/HCPCS: 96523; 99212 ==

== ENCOUNTER → 2024-08-01 16:03 | Outpatient (BNVA) | payer MEDICAID, SELFPAY | PROVIDERS: PCP Family Medicine; Visit Provider Family Medicine | DX: E87.6 Hypokalemia (principal) | CPT/HCPCS: 80053 ==

== ENCOUNTER → 2024-08-07 14:34 | Outpatient (BNVA) | payer MEDICAID, SELFPAY | PROVIDERS: PCP Family Medicine; Referring Provider Family Medicine; Visit Provider Surgery | DX: N63.10 Unspecified lump in the right breast, unspecified quadrant (principal); L98.429 Non-pressure chronic ulcer of back with unspecified severity; L97.919 Non-pressure chronic ulcer of unspecified part of right lower leg with unspecified severity | CPT/HCPCS: 97597; 99204 ==

== ENCOUNTER → 2024-08-08 16:25 | Outpatient (BNVA) | payer MEDICAID, SELFPAY | PROVIDERS: PCP Family Medicine; Visit Provider Family Medicine | DX: R73.9 Hyperglycemia, unspecified (principal) | CPT/HCPCS: 80053; 83036 ==

== ENCOUNTER 2024-08-21 15:14 | Oncology outpatient (recurring) (ONCR) | payer MEDICAID, SELFPAY | END 2024-08-28 23:59 | disposition home or self-care (01) | PROVIDERS: PCP Family Medicine; Visit Provider Family Medicine | DX: Z45.2 Encounter for adjustment and management of vascular access device (principal) | CPT/HCPCS: 96523; 97597 ==

== ENCOUNTER → 2024-08-28 13:00 | Outpatient (BNVA) | payer MEDICAID, SELFPAY | PROVIDERS: PCP Family Medicine; Visit Provider Thoracic Surgery (Cardiothoracic Vascular Surgery) | DX: I96 Gangrene, not elsewhere classified (principal); L98.411 Non-pressure chronic ulcer of buttock limited to breakdown of skin; R06.02 Shortness of breath; I25.118 Atherosclerotic heart disease of native coronary artery with other forms of angina pectoris; E78.5 Hyperlipidemia, unspecified; I35.1 Nonrheumatic aortic (valve) insufficiency; C34.90 Malignant neoplasm of unspecified part of unspecified bronchus or lung; I73.9 Peripheral vascular disease, unspecified; I50.32 Chronic diastolic (congestive) heart failure; Z95.0 Presence of cardiac pacemaker; I48.20 Chronic atrial fibrillation, unspecified; I10 Essential (primary) hypertension | CPT/HCPCS: 36415; 80048; 83880; 97597; 99214; A6248 ==

== ENCOUNTER → 2024-09-11 13:00 | Outpatient (BNVA) | payer MEDICAID, SELFPAY | PROVIDERS: PCP Family Medicine; Visit Provider Thoracic Surgery (Cardiothoracic Vascular Surgery) | DX: I96 Gangrene, not elsewhere classified (principal); L98.421 Non-pressure chronic ulcer of back limited to breakdown of skin; L59.8 Other specified disorders of the skin and subcutaneous tissue related to radiation | CPT/HCPCS: 17110; 97597; 99203; A6248 ==

== ENCOUNTER 2024-10-02 13:41 | Oncology outpatient (recurring) (ONCR) | payer MEDICAID, SELFPAY | END 2024-10-28 23:59 | disposition home or self-care (01) | LOC: ONCMED 13:41 | PROVIDERS: PCP Family Medicine; Visit Provider Family Medicine | DX: D48.5 Neoplasm of uncertain behavior of skin (principal); L82.0 Inflamed seborrheic keratosis; S81.812A Laceration without foreign body, left lower leg, initial encounter; X58.XXXA Exposure to other specified factors, initial encounter; D22.5 Melanocytic nevi of trunk; D69.2 Other nonthrombocytopenic purpura; D36.14 Benign neoplasm of peripheral nerves and autonomic nervous system of thorax | CPT/HCPCS: 11102; 17110; 96523; 97597; 99213 ==

== ENCOUNTER → 2024-10-16 14:00 | Outpatient (BNVA) | payer MEDICAID, SELFPAY | PROVIDERS: PCP Family Medicine; Visit Provider Thoracic Surgery (Cardiothoracic Vascular Surgery) | DX: I96 Gangrene, not elsewhere classified (principal); L98.421 Non-pressure chronic ulcer of back limited to breakdown of skin | CPT/HCPCS: 97597 ==

== ENCOUNTER → 2024-10-18 10:24 | Outpatient (BNVA) | payer MEDICAID, SELFPAY | PROVIDERS: PCP Family Medicine; Visit Provider Internal Medicine Cardiovascular Disease | DX: Z45.018 Encounter for adjustment and management of other part of cardiac pacemaker (principal) | CPT/HCPCS: 93296 ==

== ENCOUNTER → 2024-11-02 15:14 | Outpatient (BNVA) | payer MEDICAID, SELFPAY | PROVIDERS: PCP Family Medicine; Visit Provider Family Medicine | DX: C34.90 Malignant neoplasm of unspecified part of unspecified bronchus or lung (principal); J43.2 Centrilobular emphysema; D50.8 Other iron deficiency anemias; E03.9 Hypothyroidism, unspecified | CPT/HCPCS: 80053; 84443; 85025 ==

== ENCOUNTER 2024-11-15 15:30 | Oncology outpatient (recurring) (ONCR) | payer MEDICAID, SELFPAY | END 2024-11-28 23:59 | disposition home or self-care (01) | LOC: RAD 11-16 → ONCMED 11-16 09:36 | PROVIDERS: PCP Family Medicine; Visit Provider Family Medicine | DX: Z53.9 Procedure and treatment not carried out, unspecified reason | CPT/HCPCS: 96523; 99212 ==

== ENCOUNTER 2024-11-27 18:14 | Emergency (ER) | payer MEDICAID, SELFPAY ==
[2024-11-27 18:18] VITALS: BP 138/58; PULSE 100; RESP 16; TEMP 37.4; O2SAT 91; BMI 16.7
--- NOTE | 2024-11-27 18:19 | CTR_ITS ---
PROCEDURE INFORMATION: Exam: CT Chest Without Contrast; Diagnostic Exam date and time: 11/27/2024 6:44 PM Age: 74 years old Clinical indication: Injury or trauma; Fall; Blunt trauma (contusions or hematomas); Injury date: 11/27/2024; Prior surgery; Surgery date: 6+ months; Surgery type: Port placement, stimulator leads; Additional info: Fall pain hypoxia TECHNIQUE: Imaging protocol: Diagnostic computed tomography of the chest without contrast. Radiation optimization: All CT scans at this facility use at least one of these dose optimization techniques: automated exposure control; mA and/or kV adjustment per patient size (includes targeted exams where dose is matched to clinical indication); or iterative reconstruction. COMPARISON: CT chest wo con [id number] 02/08/2024 4:39 PM RADIATION DOSE METRICS: Total DLP (mGy-cm): 355.4 FINDINGS: Tubes, catheters and devices: Cardiac ICD. Chest port with catheter tip in the right atrium. Abandoned spinal cord stimulator leads terminating at the T7-8 level, unchanged. Lungs: Somewhat nodular subsegmental pleural-based opacity in the right middle lobe. Subsegmental opacity along the right major fissure. Severe emphysema. Pleural spaces: No pleural effusion or pneumothorax. Heart: No pericardial effusion. Coronary arteries: Moderate multivessel coronary artery calcification. Lymph nodes: Few prominent mediastinal nodes, unchanged. No new/enlarging lymph nodes. Limited evaluation for hilar adenopathy without IV contrast. Vasculature: Severe aortic proximal great vessel atherosclerosis. No aortic aneurysm. Bones/joints: Scattered old healing rib fractures. No acute fracture. Exaggerated thoracic kyphosis. Degenerative change Soft tissues: Unremarkable. CT/CT chest con [id number] IMPRESSION: 1. No acute traumatic thoracic abnormality. 2. Somewhat nodular subsegmental pleural-based opacity in the right middle lobe subsegmental opacity along the right major fissure. New from 02/08/2024, indeterminate, may reflect atelectasis/scarring, infectious/inflammatory or neoplastic process. Consider short interval follow-up CT chest to assess for resolution/stability. COMMENTS: The presence of pulmonary emphysema on CT is an independent risk factor for lung cancer. In the absence of a history or active diagnosis of lung cancer, it is recommended that this patient with emphysema be evaluated for enrollment in a low dose CT lung cancer screening program.
--- NOTE | 2024-11-27 18:19 | XRR_ITS ---
PROCEDURE INFORMATION: Exam: XR Left Hand Exam date and time: 11/27/2024 6:30 PM Age: 74 years old Clinical indication: Injury or trauma; Fall; Blunt trauma (contusions or hematomas); Hand; Left; Patient HX: PT would not straighten fingers all the out got best images i could; Additional info: Fall pain TECHNIQUE: Imaging protocol: Radiologic exam of the left hand. Views: 3 or more views. COMPARISON: No relevant prior studies available. FINDINGS: Bones/joints: Osseous demineralization. Multifocal degenerative change. Scattered chondrocalcinosis. No acute fracture or dislocation. Soft tissues: Unremarkable. XR/XR hand LT min 3V* [id number] IMPRESSION: No acute fracture or dislocation.
--- NOTE | 2024-11-27 18:19 | CTR_ITS ---
PROCEDURE INFORMATION: Exam: CT Head Without Contrast Exam date and time: 11/27/2024 6:44 PM Age: 74 years old Clinical indication: Injury or trauma; Fall; Blunt trauma (contusions or hematomas); Without loss of consciousness; Injury date: 11/27/2024; Additional info: Fall right-sided temporal contusion TECHNIQUE: Imaging protocol: Computed tomography of the head without contrast. Radiation optimization: All CT scans at this facility use at least one of these dose optimization techniques: automated exposure control; mA and/or kV adjustment per patient size (includes targeted exams where dose is matched to clinical indication); or iterative reconstruction. COMPARISON: CT head wo con* [id number] 11/05/2023 12:03 PM RADIATION DOSE METRICS: Total DLP (mGy-cm): 1171.74 FINDINGS: Brain: Old lacunar infarcts left cerebellar hemisphere. Periventricular white matter changes likely related to chronic ischemic small vessel disease. Cerebral ventricles: No ventriculomegaly. Paranasal sinuses: Visualized sinuses are unremarkable. No fluid levels. Mastoid air cells: Visualized mastoid air cells are well aerated. Bones: Unremarkable. No acute fracture. Soft tissues: Right lateral scalp soft tissue hematoma. CT/CT head wo con* [id number] IMPRESSION: 1. Small right lateral scalp soft tissue hematoma. 2. No acute intracranial abnormality.
--- NOTE | 2024-11-27 18:29 | W.ED.GENADLT ---
HPI - General Adult General: Chief complaint: Fall Stated complaint: fall - skin tears Time Seen by Provider: 11/27/24 18:15 History of Present Illness: Patient profile send multiple skin tears. She also has a contusion on her right temporal region, is complaining of left hand pain, patient is noted to have skin tears on her left forearm, bilateral lower extremities, patient denies any blacking out syncope or loss of consciousness. Related Data Home Medications Medication Instructions Recorded Confirmed lidocaine 5 % topical patch 1 - 3 patch transdermal DAILY PRN 05/21/23 10/25/24 Pain budesonide 0.5 mg/2 mL suspension 0.5 mg inhalation BID PRN 07/27/23 10/25/24 for nebulization Shortness Of Breath Or Wheezing nitroglycerin 0.4 mg sublingual 0.4 mg sublingual Q5M PRN Chest 07/27/23 10/25/24 tablet (Nitrostat) Pain magnesium oxide 400 mg PO DAILY 11/12/23 10/25/24 buprenorphine 8 mg-naloxone 2 mg 1 film buccal TID 04/24/24 10/25/24 sublingual film (Suboxone) ferrous sulfate 325 mg (65 mg 325 mg PO DAILY 08/17/24 10/25/24 iron) tablet Previous Rx's Medication Instructions Recorded lidocaine-prilocaine 2.5 %-2.5 % 1 applic topical DAILY PRN pain 08/12/23 topical cream #50 grams fluticasone 500 mcg-salmeterol 50 1 inh inhalation BID #60 ea 09/02/23 mcg/dose blistr powdr for inhalation (Advair Diskus) albuterol sulfate 90 mcg/actuation 2 puff inhalation Q4H PRN 12/16/23 aerosol inhaler shortness of breath or wheezing #6.7 grams ondansetron 4 mg disintegrating 4 mg PO Q8H PRN nausea and 02/24/24 tablet vomiting #30 tabs calcitriol 0.5 mcg capsule 0.5 mcg PO DAILY #90 caps 05/25/24 (Rocaltrol) atorvastatin 40 mg tablet See Rx Instructions .Route 06/07/24 .COMPLEX #90 tabs pantoprazole 40 mg tablet,delayed 40 mg PO BID #60 tabs 07/18/24 release bumetanide 1 mg tablet 1 mg PO BID #60 tabs 08/22/24 potassium chloride 20 mEq/15 mL 15 meq (11.25 mL) PO BID #450 mL 07/20/24 oral liquid chlorpheniramine 4 5 ml PO Q6H PRN cold symptoms #160 08/03/24 mg-phenylephrine 10 mg-DM 15 mg/5 mL mL oral liquid (Ed A-Hist DM) metoprolol tartrate 25 mg tablet 25 mg PO BID #60 tabs 08/08/24 nicotine See Rx Instructions transdermal 08/08/24 21mg/24hr-14mg/24hr-7mg/24hr daily .COMPLEX #56 patches transderm patches,sequentl loratadine 10 mg tablet 10 mg PO DAILY #30 tabs 08/17/24 apixaban 2.5 mg tablet (Eliquis) 2.5 mg PO BID #60 tabs 08/28/24 roflumilast 500 mcg tablet 500 mcg PO DAILY #30 tabs 10/03/24 diphenoxylate-atropine 2.5 1 tab PO BID PRN diarrhea #30 tabs 10/10/24 mg-0.025 mg tablet (Lomotil) mupirocin 2 % topical ointment 1 applic topical BID nares #22 10/10/24 grams baclofen 10 mg tablet See Rx Instructions .Route 10/20/24 .COMPLEX #90 tabs fluticasone propionate 50 2 spray intranasal DAILY sinus 11/02/24 mcg/actuation nasal congestion #16 grams spray,suspension cilostazol 50 mg tablet 50 mg PO BID #90 tabs 11/07/24 levothyroxine 50 mcg tablet 50 mcg PO DAILY thyroid #90 tabs 11/16/24 montelukast 4 mg chewable tablet 8 mg (2 x 4 mg) PO DAILY #60 tabs 11/24/24 Allergies Allergy/AdvReac Type Severity Reaction Status Date / Time amiodarone Allergy Severe ADR-Confusi Verified 11/16/24 14:44 on 2-octyl cyanoacrylate Allergy ALGY-Rash Verified 11/16/24 14:44 adhesive tape Allergy ALGY-Rash Verified 11/16/24 14:44 amitriptyline Allergy ALGY-Hives Verified 11/16/24 14:44 amoxicillin Allergy ALGY-Hives Verified 11/16/24 14:44 cefaclor [From Ceclor] Allergy ALGY-Difficulty Verified 11/16/24 14:44 Breathing ciprofloxacin [From Cipro] Allergy ALGY-Difficulty Verified 11/16/24 14:44 Breathing gabapentin Allergy ALGY-Hives Verified 11/16/24 14:44 ibuprofen Allergy ALGY-Hives Verified 11/16/24 14:44 metronidazole [From Flagyl] Allergy ALGY-Hives Verified 11/16/24 14:44 Penicillins Allergy ALGY-Hives Verified 11/16/24 14:44 Sulfa (Sulfonamide Allergy ALGY-Hives Verified 11/16/24 14:44 Antibiotics) sulfamethoxazole Allergy ALGY-Difficulty Verified 11/16/24 14:44 [From Bactrim] Breathing tetracycline Allergy ALGY-Hives Verified 11/16/24 14:44 trimethoprim Allergy ALGY-Hives Verified 11/16/24 14:44 Review of Systems General: Reports: 10 or more systems reviewed and unremarkable except in HPI and below PFSH ED PFSH: Medical History Lung nodule Skin lesions Dyslipidemia (high LDL; low HDL) Acute exacerbation of chronic obstructive pulmonary disease Lump of right breast Lung cancer right lower lobe Left shoulder pain Avulsion fracture of left talus Skin tear of right upper arm without complication Orthopnea Sinus node dysfunction Sinus pause Bradycardia Orthostatic hypotension Hypovitaminosis D Seizure-like activity Syncopal episodes Nicotine dependence, cigarettes, with unspecified nicotine-induced disorders Sacral decubitus ulcer Chronic rhinosinusitis Infected epidermoid cyst Fall Cor pulmonale Cor pulmonale Leg pain, left Nicotine addiction Chronic respiratory failure with hypoxia Aortic cusp regurgitation Actinic keratosis due to exposure to sunlight Closed intertrochanteric fracture of right hip Smoking addiction Chronic pain Thyroid cancer SOB (shortness of breath) History of COPD CVA (cerebral vascular accident) Benign essential hypertension CAD (coronary artery disease) Hx of carotid stenosis Leg pain, medial Neck strain COPD (chronic obstructive pulmonary disease) Plantar porokeratosis, acquired Surgical History Status post cardiac pacemaker procedure History of bronchoscopy History of hip surgery Hx of hysterectomy History of bilateral carpal tunnel release History of lumpectomy History of rectal surgery History of ankle surgery Status post open reduction and internal fixation (ORIF) of fracture H/O thyroidectomy S/P hardware removal Spine History of back surgery Port-A-Cath in place Family History Brother Leukemia Diabetes Lung disease Mother Anesthesia complication CAD (coronary artery disease) Father Bleeding disorder Clotting disorder CAD (coronary artery disease) Cancer Stroke Sister CAD (coronary artery disease) Chronic kidney disease (CKD) Lung disease Family/Other Diabetes Stroke Grandfather Suicide Denies family history of Dementia Social History Smoking and tobacco/nicotine status: never used tobacco/nicotine Quit status (tobacco/nicotine): considering quitting Second hand smoke exposure: Yes Alcohol intake: never Substance/Drug Use: current Other substance/drug use details: Couple of months ago Gummies Adopted: No Lives independently: Yes Household members: none Housing: Apartment Marital status: / Current occupational status: disabled Do you think of yourself as: Straight/Heterosexual Current gender identity: Female Physical Exam Const: COMMON NORMALS: no acute distress, average body habitus, patient oriented x3, no limitations, healthy appearing, alert and well nourished HENMT: COMMON NORMALS: normocephalic, hearing grossly normal bilaterally, external ears normal, Normal external nose present and moist oral mucous membranes; head/scalp not atraumatic (Right temporal contusion) HEAD & SCALP: normocephalic; not atraumatic (Right temporal contusion) NOSE: Normal external nose present EXTERNAL EAR: Yes external ears normal Eye: COMMON NORMALS: Equal, round and reactive pupils present, EOMs intact bilaterally, conjunctivae normal and no scleral icterus CONJUNCTIVA: Yes conjunctivae normal PUPIL: Yes Equal, round and reactive pupils present Neck/C-Spine: COMMON NORMALS: full ROM, no lymphadenopathy, supple, no meningeal signs, no JVD and Thyroid normal THYROID: Thyroid normal Chest: COMMONS NORMALS: normal inspection of the chest and normal palpation of entire chest wall Resp: COMMON NORMALS: normal respiratory effort, No retractions, No use of accessory muscles and clear to auscultation bilaterally AUSCULTATION: clear to auscultation bilaterally Cardio: COMMON NORMALS: no JVD, regular rate, regular rhythm, S1 normal heart sound present, S2 normal heart sound present, No gallops present (Cardio), No clicks present (Cardio), No murmurs present (Cardio) and No rub (Cardio) RATE: regular rate RHYTHM: regular rhythm HEART SOUNDS: S1 normal heart sound present and S2 normal heart sound present GI: COMMON NORMALS: Normal to inspection, nondistended, normoactive bowel sounds present, Soft to palpation, non-tender, No hepatosplenomegaly present and no masses PALPATION: Yes Soft to palpation and Yes No hepatosplenomegaly present Neuro: COMMON NORMALS: patient oriented x3 SENSORIUM/ORIENTATION: Yes alert MENINGEAL SIGNS: Yes no meningeal signs Course Vital Signs: Vital signs: Vital Signs Temperature 99.4 F 11/27/24 18:18 Pulse Rate 100 11/27/24 18:18 Respiratory Rate 16 11/27/24 18:18 Blood Pressure 138/58 11/27/24 18:18 Pulse Oximetry 91 11/27/24 18:18 Oxygen Delivery Me thod Nasal Cannula 11/27/24 18:18 Oxygen Flow Rate 3 11/27/24 18:18 MDM - General Adult Medical Decision Making X-rays of left hand, CTs of chest and head was taken, no acute abnormalities in any of those. Patient be discharged home. Medical Records I reviewed the patient's medical records. Lab Data I reviewed the patient's lab results. Radiology Impressions Chest CT 11/27/24 18:19 IMPRESSION: 1. No acute traumatic thoracic abnormality. 2. Somewhat nodular subsegmental pleural-based opacity in the right middle lobe subsegmental opacity along the right major fissure. New from 02/08/2024, indeterminate, may reflect atelectasis/scarring, infectious/inflammatory or neoplastic process. Consider short interval follow-up CT chest to assess for resolution/stability. COMMENTS: The presence of pulmonary emphysema on CT is an independent risk factor for lung cancer. In the absence of a history or active diagnosis of lung cancer, it is recommended that this patient with emphysema be evaluated for enrollment in a low dose CT lung cancer screening program. Hand X-Ray 11/27/24 18:19 IMPRESSION: No acute fracture or dislocation. Head CT 11/27/24 18:19 IMPRESSION: 1. Small right lateral scalp soft tissue hematoma. 2. No acute intracranial abnormality. All radiology interpretation(s) finalized by discharge Discharge Plan Discharge Patient Disposition: Home Clinical Impression: Fall, Hand pain, left, Contusion of face, Multiple skin tears Condition: Stable Prescriptions: No Action Eliquis 2.5 mg tablet 2.5 mg PO BID Qty: 60 5RF fluticasone propionate 50 mcg/actuation spray,suspension 2 spray intranasal DAILY Qty: 16 3RF Rx Instructions: administer into each nostril levothyroxine 50 mcg tablet 50 mcg PO DAILY Qty: 90 1RF fluticasone propion-salmeterol [Advair Diskus] 500-50 mcg/dose blister with device 1 inh inhalation BID Qty: 60 3RF lidocaine-prilocaine 2.5-2.5 % cream 1 applic topical DAILY PRN (Reason: pain) Qty: 50 3RF ondansetron 4 mg tablet,disintegrating 4 mg PO Q8H PRN (Reason: nausea and vomiting) Qty: 30 1RF nicotine 21-14-7 mg/24 hr patch, TD daily, sequential See Rx Instructions transdermal .COMPLEX Qty: 56 0RF Rx Instructions: apply 1-21 mg NICOTINE PATCH daily for 28 days; follow with 1-14 mg PATCH daily for 14 days, then 1-7mg PATCH daily for 14 days transdermal metoprolol tartrate 25 mg tablet 25 mg PO BID Qty: 60 3RF calcitriol [Rocaltrol] 0.5 mcg capsule 0.5 mcg PO DAILY Qty: 90 3RF pantoprazole 40 mg tablet,delayed release (DR/EC) 40 mg PO BID Qty: 60 3RF ferrous sulfate 325 mg (65 mg iron) tablet 325 mg PO DAILY diphenoxylate-atropine [Lomotil] 2.5-0.025 mg tablet 1 tab PO BID PRN (Reason: diarrhea) Qty: 30 3RF mupirocin 2 % ointment 1 applic topical BID Qty: 22 0RF Rx Instructions: use in both nare bid albuterol sulfate 90 mcg/actuation HFA aerosol inhaler 2 puff inhalation Q4H PRN (Reason: shortness of breath or wheezing) Qty: 6.7 3RF atorvastatin 40 mg tablet See Rx Instructions .ROUTE .COMPLEX Qty: 90 3RF Dose Instruction: TAKE ONE TABLET BY MOUTH DAILY Rx Instructions: TAKE ONE TABLET BY MOUTH DAILY bumetanide 1 mg tablet 1 mg PO BID Qty: 60 3RF potassium chloride 20 mEq/15 mL liquid 15 meq PO BID Qty: 450 2RF Ed A-Hist DM 4-10-15 mg/5 mL liquid 5 ml PO Q6H PRN (Reason: cold symptoms) Qty: 160 2RF loratadine 10 mg tablet 10 mg PO DAILY Qty: 30 6RF roflumilast 500 mcg tablet 500 mcg PO DAILY Qty: 30 5RF baclofen 10 mg tablet See Rx Instructions .ROUTE .COMPLEX Qty: 90 0RF Dose Instruction: TAKE ONE TABLET BY MOUTH EVERY 8 HOURS NEEDED FOR MUSCLE SPASMS Rx Instructions: TAKE ONE TABLET BY MOUTH EVERY 8 HOURS NEEDED FOR MUSCLE SPASMS cilostazol 50 mg tablet 50 mg PO BID Qty: 90 3RF montelukast 4 mg tablet,chewable 8 mg PO DAILY Qty: 60 5RF magnesium oxide 400 mg magnesium Capsule 400 mg PO DAILY lidocaine 5 % adhesive patch,medicated 1 - 3 patch transdermal DAILY PRN (Reason: Pain) Rx Instructions: on for 12 hours off for 12 hours nitroglycerin [Nitrostat] 0.4 mg Tablet, Sublingual 0.4 mg SUBLINGUAL Q5M PRN (Reason: Chest Pain) Rx Instructions: do not exceed 3 doses per episode budesonide 0.5 mg/2 mL suspension for nebulization 0.5 mg inhalation BID PRN (Reason: Shortness Of Breath Or Wheezing) Suboxone 8-2 mg Film 1 film BUCCAL TID Discharge Orders: Discharge ED (Routine); Ordered 11/27/24 Ordered By: Syd Johnson Referrals: Roger Reynoso DO [Primary Care Provider] - 1 week Patient Instructions: Skin Tear (ED), Fall Prevention (ED), Facial Contusion (ED) Activity Restrictions/Additional Instructions: Thank you for choosing [facility] for your healthcare needs today. Please realize that you were seen in the emergency department and that we are providing you with an emergency medical screening exam and this may not be a complete and all exclusive of all testing and/or medical workup we may need to determine your element or severity of your illness. It is very important that you follow-up as instructed with your primary care provider or specialist for the additional evaluation and to discuss your medical treatment plan. You may return to the emergency department should you have concerns or if your condition changes or worsens in any way. Coding Level of Care Code ED Tool Mechanic for Delmer Ray
[2024-11-27 18:34] VITALS: BP 138/58; PULSE 101; O2SAT 91
[2024-11-27 19:04] VITALS: BP 117/52; PULSE 109; O2SAT 94
[2024-11-27 19:30] VITALS: BP 100/64; PULSE 85; O2SAT 94
[2024-11-27 20:00] VITALS: BP 115/57; PULSE 97; O2SAT 92
[2024-11-27 20:59] VITALS: BP 115/57; PULSE 100; O2SAT 92
== END 2024-11-27 20:25 | disposition home or self-care (01) ==
PROVIDERS: Emergency Provider Emergency Medicine; PCP Family Medicine
DX: S00.83XA Contusion of other part of head, initial encounter (principal); T14.8XXA Other injury of unspecified body region, initial encounter; M79.642 Pain in left hand; Z79.01 Long term (current) use of anticoagulants; Z95.0 Presence of cardiac pacemaker; J44.9 Chronic obstructive pulmonary disease, unspecified; Z86.73 Personal history of transient ischemic attack (TIA), and cerebral infarction without residual deficits; C34.31 Malignant neoplasm of lower lobe, right bronchus or lung; W19.XXXA Unspecified fall, initial encounter
CPT/HCPCS: 70450; 71250; 73130; 99284

== ENCOUNTER → 2025-01-04 15:05 | Outpatient (BNVA) | payer MEDICAID, SELFPAY | PROVIDERS: PCP Family Medicine; Visit Provider Family Medicine | DX: I50.9 Heart failure, unspecified (principal); C34.90 Malignant neoplasm of unspecified part of unspecified bronchus or lung; R60.9 Edema, unspecified; J43.2 Centrilobular emphysema; E03.9 Hypothyroidism, unspecified | CPT/HCPCS: 80053; 84443; 85025 ==

== ENCOUNTER 2025-01-23 19:01 | Emergency (ER) | payer MEDICAID, SELFPAY ==
[2025-01-23 19:04] VITALS: BP 101/52; PULSE 101; RESP 24; TEMP 36.5; O2SAT 91; BMI 18.5
--- NOTE | 2025-01-23 19:10 | XRR_ITS ---
PROCEDURE INFORMATION: Exam: XR Chest Exam date and time: 01/23/2025 7:43 PM Age: 74 years old Clinical indication: Shortness of breath; Prior surgery; Surgery date: 6+ months; Surgery type: Port pacer TECHNIQUE: Imaging protocol: Radiologic exam of the chest. Views: 1 view. COMPARISON: CT chest con [id number] 11/27/2024 6:44 PM FINDINGS: Tubes, catheters and devices: Right-sided Port-A-Cath with tip projecting over expected location of right atrium. Surgical clips project over right upper abdomen. Left-sided pacemaker with single intact lead is present. Lungs: Unremarkable. No consolidation. Pleural spaces: Unremarkable. No pleural effusion. No pneumothorax. Heart/Mediastinum: Unremarkable. No cardiomegaly. Bones/joints: Unremarkable. XR/XR chest 1V portable [id number] IMPRESSION: No acute intrathoracic findings.
[2025-01-23 19:19] VITALS: BP 98/56; PULSE 101; RESP 22
--- NOTE | 2025-01-23 19:36 | ED_ITS ---
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 She has had a lot of wheezing. She has had some cough. No chest pain. No abdominal pain. No vomiting. No known fevers. Related Data Home Medications ?Medication ?Instructions ?Recorded ?Confirmed lidocaine 5 % topical patch 1 - 3 patch transdermal DA DOMENIC PRN 05/21/23 10/25/24 Pain budesonide 0.5 mg/2 mL suspension 0.5 mg inhalation BI D PRN 07/27/23 10/25/24 for nebulization Shortness Of Breath Or Wheez ing nitroglycerin 0.4 mg sublingual 0.4 mg sublingual Q5M PRN Chest 07/27/23 10/25/24 tablet (Nitrostat) Pain magnesium oxide 400 mg PO DAILY 11/12/23 buprenorphine 8 mg-naloxone 2 mg 1 film buccal TID 10/25/24 sublingual film (Suboxone) ferrous sulfate 325 mg (65 mg 325 mg PO DAILY 08/17/24 10/25/24 iron) tablet Previous Rx's ?Medication ?Instructions ?Recorded lidocaine-prilocaine 2.5 %-2.5 % 1 applic topical YING Y PRN pain 08/12/23 topical cream #50 grams fluticasone 500 mcg-salmeterol 50 1 inh inhalation BID #60 ea 09/02/23 mcg/dose blistr powdr for inhalation (Advair Diskus) albuterol sulfate 90 mcg/actuation 2 puff inhalation Q 4H PRN 12/16/23 aerosol inhaler shortness of breath or wheez ing #6.7 grams ondansetron 4 mg disintegrating 4 mg PO Q8H PRN nausea and 02/24/24 tablet vomiting #30 tabs calcitriol 0.5 mcg capsule 0.5 mcg PO DAILY #90 caps 0 05/25/24 (Rocaltrol) bumetanide 1 mg tablet 1 mg PO BID #60 tabs 4 potassium chloride 20 mEq/15 mL 15 meq (11.25 mL) PO B ID #450 mL 07/20/24 oral liquid chlorpheniramine 4 5 ml PO Q6H PRN cold symptom s #160 08/03/24 mg-phenylephrine 10 mg-DM 15 mg/5 mL mL oral liquid (Ed A-Hist DM) nicotine See Rx Instructions transder mal 08/08/24 21mg/24hr-14mg/24hr-7mg/24hr daily .COMPLEX #56 patche s transderm patches,sequentl loratadine 10 mg tablet 10 mg PO DAILY #30 tabs 07/30 08/22 apixaban 2.5 mg tablet (Eliquis) 2.5 mg PO BID #60 tab s 08/28/24 roflumilast 500 mcg tablet 500 mcg PO DAILY #30 tabs 1 12/03/23 diphenoxylate-atropine 2.5 1 tab PO BID PRN diarrhea # 30 tabs 10/10/24 mg-0.025 mg tablet (Lomotil) fluticasone propionate 50 2 spray intranasal DAILY sin us 11/02/24 mcg/actuation nasal congestion #16 grams spray,suspension cilostazol 50 mg tablet 50 mg PO BID #90 tabs levothyroxine 50 mcg tablet 50 mcg PO DAILY thyroid #9 0 tabs 11/16/24 montelukast 4 mg chewable tablet 8 mg (2 x 4 mg) PO DA DOMENIC #60 tabs 11/24/24 baclofen 10 mg tablet See Rx Instructions .Route 1 .COMPLEX #90 tabs pantoprazole 40 mg tablet,delayed 40 mg PO BID #90 tab s 11/28/24 release metoprolol tartrate 25 mg tablet 25 mg PO BID #180 tab s 12/27/24 atorvastatin 20 mg tablet See Rx Instructions .Route 0 01/04/25 .COMPLEX #90 tabs mupirocin 2 % topical ointment 1 applic topical BID na res #22 01/04/25 grams azithromycin 250 mg tablet See Rx Instructions PO .COM PLEX #6 01/23/25 (Zithromax Z-Rodger) tabs prednisone 20 mg tablet 40 mg (2 x 20 mg) PO DAILY 5 days 01/23/25 #10 tabs Allergies Allergy/AdvReac Type Severity Reaction Status Date / Time amiodarone Allergy Severe ADR-Confusi Verified 01/04/25 14:48 on 2-octyl cyanoacrylate Allergy ALGY-Rash Verified 01/04/25 14:48 adhesive tape Allergy ALGY-Rash Verified 01/04/25 14:48 amitriptyline Allergy ALGY-Hives Verified 01/04/25 14:48 amoxicillin Allergy ALGY-Hives Verified 01/04/25 14:48 cefaclor (From Ceclor) Allergy ALGY-Difficulty Verified 01/04/25 14:48 Breathing ciprofloxacin (From Cipro) Allergy ALGY-Difficulty Verified 01/04/25 14:48 Breathing gabapentin Allergy ALGY-Hives Verified 01/04/25 14:48 ibuprofen Allergy ALGY-Hives Verified 01/04/25 14:48 metronidazole (From Flagyl) Allergy ALGY-Hives Verified 01/04/25 14:48 Penicillins Allergy ALGY-Hives Verified 01/04/25 14:48 Sulfa (Sulfonamide Allergy ALGY-Hives Verified 01/04/25 14:48 Antibiotics) sulfamethoxazole (From Allergy ALGY-Difficulty Verified 01/04/25 14:48 Bactrim) Breathing tetracycline Allergy ALGY-Hives Verified 01/04/25 14:48 trimethoprim Allergy ALGY-Hives Verified 01/04/25 14:48 Review of Systems 2 Narrative: Constitutional symptoms: Negative except as documented in HPI. Skin symptoms: Negative except as documented in HPI. Eye symptoms: Negative except as documented in HPI. ENMT symptoms: Negative except as documented in HPI. Respiratory symptoms: Negative except as documented in HPI. Cardiovascular symptoms: Negative except as documented in HPI. Gastrointestinal symptoms: Negative except as documented in HPI. Genitourinary symptoms: Negative except as documented in HPI. Musculoskeletal symptoms: Negative except as documented in HPI. Neurologic symptoms: Negative except as documented in HPI. Psychiatric symptoms: Negative except as documented in HPI. Endocrine symptoms: Negative except as documented in HPI. PFSH ED 2 PFSH: Medical History Lung nodule Skin lesions Dyslipidemia (high LDL; low HDL) Acute exacerbation of chronic obstructive pulmonary disease Lump of right breast Lung cancer right lower lobe Left shoulder pain Avulsion fracture of left talus Skin tear of right upper arm without complication Orthopnea Sinus node dysfunction Sinus pause Bradycardia Orthostatic hypotension Hypovitaminosis D Seizure-like activity Syncopal episodes Nicotine dependence, cigarettes, with unspecified nicotine-induced disorders Sacral decubitus ulcer Chronic rhinosinusitis Infected epidermoid cyst Fall Cor pulmonale Cor pulmonale Leg pain, left Nicotine addiction Chronic respiratory failure with hypoxia Aortic cusp regurgitation Actinic keratosis due to exposure to sunlight Closed intertrochanteric fracture of right hip Smoking addiction Chronic pain Thyroid cancer SOB (shortness of breath) History of COPD CVA (cerebral vascular accident) Benign essential hypertension CAD (coronary artery disease) Hx of carotid stenosis Leg pain, medial Neck strain COPD (chronic obstructive pulmonary disease) Plantar porokeratosis, acquired Surgical History Status post cardiac pacemaker procedure History of bronchoscopy History of hip surgery Hx of hysterectomy History of bilateral carpal tunnel release History of lumpectomy History of rectal surgery History of ankle surgery Status post open reduction and internal fixation (ORIF) of fracture H/O thyroidectomy S/P hardware removal Spine History of back surgery Port-A-Cath in place Family History Brother Leukemia Diabetes Lung disease Mother Anesthesia complication CAD (coronary artery disease) Father Bleeding disorder Clotting disorder CAD (coronary artery disease) Cancer Stroke Sister CAD (coronary artery disease) Chronic kidney disease (CKD) Lung disease Family/Other Diabetes Stroke Grandfather Suicide Denies family history of Dementia Social History Smoking and tobacco/nicotine status: never used tobacco/nicotine Quit status (tobacco/nicotine): considering quitting Second hand smoke exposure: Yes Alcohol intake: never Substance/Drug Use: current Other substance/drug use details: Couple of months ago Gummies Adopted: No Lives independently: Yes Household members: none Housing: Apartment Marital status: / Current occupational status: disabled Do you think of yourself as: Straight/Heterosexual Current gender identity: Female Physical Exam 2 Narrative: EXAM NARRATIVE: General: Alert, no acute distress. Skin: Warm, dry. Head: Normocephalic, atraumatic. Neck: Supple, trachea midline. Eye: Extraocular movements are intact. Ears, nose, mouth and throat: Oral mucosa moist. Cardiovascular: Regular rate and rhythm, Normal peripheral perfusion. Respiratory: coarse, scattered wheeze, mild increased wob. tachypnea, breath sounds are equal, Symmetrical chest wall expansion. Gastrointestinal: Soft, Nontender, Non distended, Normal bowel sounds. Musculoskeletal: Normal ROM, no deformity. Neurological: Alert and oriented to person, place, time, and situation, No focal neurological deficit observed. Psychiatric: Cooperative, appropriate mood & affect. Course 2 Vital Signs: Vital signs: Vital Signs Temperature 97.7 F 01/23/25 19:04 Pulse Rate 99 01/23/25 20:42 Respiratory Rate 18 01/23/25 20:42 Blood Pressure 111/93 01/23/25 20:42 Pulse Oximetry 98 01/23/25 20:42 Oxygen Delivery Me thod Nasal Cannula 01/23/25 20:42 Oxygen Flow Rate 3 01/23/25 20:42 MDM - SOB/Dyspnea Medical Decision Making Differential diagnosis for patient with shortness of breath includes but is not limited to and based on the above HPI, review of systems and physical exam: Pneumonia. Bronchitis. Asthma or COPD with acute exacerbation. Acute coronary syndrome / [place]. Pulmonary embolism. Anxiety. Congestive heart failure. Viral infections including influenza and Covid-19. Atrial fibrillation. Anxiety. Pleural effusion. Pneumothorax. Orders placed to evaluate differential diagnosis based on the above differential, HPI and physical exam EKG: Time 1929. Rate 76. Normal sinus rhythm, No ST-T changes, no ectopy, normal ND & QRS intervals, This was reviewed and interpreted by myself the ER physician at 1934 Chest x-ray: Right-sided port in place. Left-sided Medtronic pacemaker in place. No acute process. No infiltrate. No pneumothorax. This was reviewed and interpreted by myself the emergency room physician. I also reviewed the radiology report. Lab Review: Laboratory results were reviewed and interpreted by myself the emergency room physician. Mild leukocytosis with a white count 13.8. Slight worsening of chronic anemia with a hemoglobin of 7.9. Flu and COVID are negative. Renal function is stable. I reviewed the patient's medical record. Reexamination: Patient remained stable. Work of breathing has improved. Wheezing is improved somewhat. I discussed findings with patient and she wants to go home. No altered mental status. No focal motor deficits. Assessment and plan: COPD with acute exacerbation Chronic hypoxemic respiratory failure Tobacco dependence Anemia ? IV Solu-Medrol, breathing treatments. Home on steroids. Needs close follow- up with her PCP concerning her anemia. May need transfused sometime in the near future. - Discharged home - Discussed plan with patient. Answered any questions. - Evaluation and treatment of this problem were appropriate in the emergency setting. Lab Data 01/23/25 19:01/23/25 19: Labs/Radiology: Radiology Impressions Chest X-Ray 01/23/25 19: IMPRESSION: No acute intrathoracic findings. Laboratory Results WBC 13.81 10^3/uL (3.29-11.43) H 01/23/25 19: RBC 3.32 10^6/uL (3.85-5.65) L 01/23/25 19: Hgb 7.90 g/dL (11.27-16.99) L 01/23/25: Hct 27.2 % (36-47) L 01/23/25: MCV 81.9 fl (85-98) L 01/23/25: MCH 23.8 pg (27-33) L 01/23/25: MCHC 29.0 g/dL (30-55) L 01/23/25: RDW 17.0 % (12.1-15.1) H 01/23/25 19: Plt Count 173 10^3/cmm (157-399) 01/23/25: MPV 9.3 fL (7.4-10.4) 01/23/25: Neut % (Auto) 90.2 % 01/23/25: Lymph % (Auto) 3.1 % 01/23/25: [place] % (Auto) 5.0 % 01/23/25: Eos % (Auto) 0.1 % 01/23/25: Baso % (Auto) 0.2 % 01/23/25: Neut # (Auto) 12.46 10^3/uL (1.8-7.7) H 01/23/25 19: Lymph # (Auto) 0.4 10^3/uL (0.8-4.8) L 01/23/25 19:28 [place] # (Auto) 0.7 10^3/uL (0.2-0.9) 01/23/25 19: Eos # (Auto) 0.0 10^3/uL (0.0-0.8) 01/23/25 19: Baso # (Auto) 0.0 10^3/uL (0.0-0.1) 01/23/25 19: Nucleated RBC % (auto) 0 % 01/23/25: Nucleated RBCs # 0.0 /100WBC 01/23/25 19:28 Specimen Type Arterial 01/23/25 20:16 Sample Site Radial, left 01/23/25 20:16 ABG pH 7.41 (7.35-7.45) 01/23/25 20:16 ABG pCO2 56.8 mmHg (35-45) H 01/23/25 20:16 ABG pO2 135.0 mmHg (80.0-100.0) H 01/23/25 20:16 ABG HCO3 36.1 mmol/L (22-26) H 01/23/25 20:16 ABG O2 Saturation > 99.1 01/23/25 20:16 ABG Base Excess 10.0 mmol/L (-2.0-2.0) H 01/23/25 20:16 Ankush Test Pos 01/23/25 20:16 Hematocrit 28.8 % (37-47) L 01/23/25 20:16 Hgb O2 Saturation 96.5 % (95-100) 01/23/25 20:16 Carboxyhemoglobin 2.1 %THgb (0.4-20.1) 01/23/25 20:16 Methemoglobin 1.0 % (0.4-1.5) 01/23/25 20:16 Total Hemoglobin 9.4 g/dL (12-16) L 01/23/25 20:16 Sodium 134.0 mmol/L (131-143) 01/23/25 20:16 Potassium 3.8 mmol/L (3.5-5.0) 01/23/25 20:16 Glucose 210.0 mg/dL (70-115) H 01/23/25 20:16 Ionized Calcium 1.0 mmol/L (1.1-1.4) L 01/23/25 20:16 O2 Delivery Device Nc 01/23/25 20:16 O2 Liters/Min 4.0 % 01/23/25 20:16 Fleet Salesperson ID Derrick 01/23/25 20:16 Sodium 131 mmol/L (136-145) L 01/23/25 19:28 Potassium 3.9 mmol/L (3.5-5.1) 01/23/25 19: Chloride 88 mmol/L (98-107) L 01/23/25 19: Carbon Dioxide 34 mmol/L (22-29) H 01/23/25 19: Anion Gap 12.9 (5-19) 01/23/25 19: BUN 23 mg/dL (8-23) 01/23/25 19: Creatinine 1.2 mg/dL (0.5-0.9) H 01/23/25 19: GFR Calculation Not Reportable 01/23/25 19: Glucose 211 mg/dL (65-115) H 01/23/25 19: Calculated Osmolality 282 mOsm/kg (285-295) L 01/23/25 19: Lactic Acid 2.4 mmol/L (0.5-2.2) H 01/23/25 19: Calcium 7.8 mg/dL (8.5-10.5) L 01/23/25 19: Total Bilirubin 1.0 mg/dL (0.15-1.2) 01/23/25 19: AST 19 U/L (0-32) 01/23/25 19: ALT 11 U/L (0-33) 01/23/25 19: Alkaline Phosphatase 164 U/L (35-105) H 01/23/25 19: C-Reactive Protein 125.5 mg/L (0.0-4.9) H 01/23/25 19: Total Protein 6.0 g/dL (6.6-8.7) L 01/23/25 19: Albumin 2.9 g/dL (3.5-5.2) L 01/23/25 19:28 Globulin 3.1 g/dL (1.3-4.6) 01/23/25 19:28 Influenza A (PCR) Negative (Negative) 01/23/25 19:30 Influenza Type B (PCR) Negative (Negative) 01/23/25 19:30 RSV (PCR) Negative (Negative) 01/23/25 19:30 SARS-CoV-2 (PCR) Negative (Negative) 01/23/25 19:30 All radiology interpretation(s) finalized by discharge Discharge Plan Discharge Patient Disposition: Home Clinical Impression: Acute exacerbation of chronic obstructive pulmonary disease, Chronic hypoxemic respiratory failure, Tobacco dependence, Acute bronchitis Condition: Stable Prescriptions: New azithromycin [Zithromax Z-Rodger] 250 mg tablet See Rx Instructions .ROUTE .COMPLEX Qty: 6 0RF Rx Instructions: For 250 mg dose pack: take 500 mg today (day 1), then 250 mg for 4 days (days 2-5) prednisone 20 mg tablet 40 mg PO DAILY 5 Days Qty: 10 0RF No Action Eliquis 2.5 mg tablet 2.5 mg PO BID Qty: 60 5RF fluticasone propionate 50 mcg/actuation spray,suspension 2 spray intranasal DAILY Qty: 16 3RF Rx Instructions: administer into each nostril levothyroxine 50 mcg tablet 50 mcg PO DAILY Qty: 90 1RF mupirocin 2 % ointment 1 applic topical BID Qty: 22 3RF atorvastatin 20 mg tablet See Rx Instructions .ROUTE .COMPLEX Qty: 90 3RF Dose Instruction: TAKE ONE TABLET BY MOUTH DAILY Rx Instructions: TAKE ONE TABLET BY MOUTH DAILY fluticasone propion-salmeterol [Advair Diskus] 500-50 mcg/dose blister with device 1 inh inhalation BID Qty: 60 3RF lidocaine-prilocaine 2.5-2.5 % cream 1 applic topical DAILY PRN (Reason: pain) Qty: 50 3RF ondansetron 4 mg tablet,disintegrating 4 mg PO Q8H PRN (Reason: nausea and vomiting) Qty: 30 1RF nicotine 21-14-7 mg/24 hr patch, TD daily, sequential See Rx Instructions transdermal .COMPLEX Qty: 56 0RF Rx Instructions: apply 1-21 mg NICOTINE PATCH daily for 28 days; follow with 1-14 mg PATCH daily for 14 days, then 1-7mg PATCH daily for 14 days transdermal calcitriol [Rocaltrol] 0.5 mcg capsule 0.5 mcg PO DAILY Qty: 90 3RF ferrous sulfate 325 mg (65 mg iron) tablet 325 mg PO DAILY diphenoxylate-atropine [Lomotil] 2.5-0.025 mg tablet 1 tab PO BID PRN (Reason: diarrhea) Qty: 30 3RF albuterol sulfate 90 mcg/actuation HFA aerosol inhaler 2 puff inhalation Q4H PRN (Reason: shortness of breath or wheezing) Qty: 6.7 3RF bumetanide 1 mg tablet 1 mg PO BID Qty: 60 3RF potassium chloride 20 mEq/15 mL liquid 15 meq PO BID Qty: 450 2RF Ed A-Hist DM 4-10-15 mg/5 mL liquid 5 ml PO Q6H PRN (Reason: cold symptoms) Qty: 160 2RF loratadine 10 mg tablet 10 mg PO DAILY Qty: 30 6RF roflumilast 500 mcg tablet 500 mcg PO DAILY Qty: 30 5RF cilostazol 50 mg tablet 50 mg PO BID Qty: 90 3RF montelukast 4 mg tablet,chewable 8 mg PO DAILY Qty: 60 5RF baclofen 10 mg tablet See Rx Instructions .ROUTE .COMPLEX Qty: 90 0RF Dose Instruction: TAKE ONE TABLET BY MOUTH EVERY 8 HOURS NEEDED FOR MUSCLE SPASMS Rx Instructions: TAKE ONE TABLET BY MOUTH EVERY 8 HOURS NEEDED FOR MUSCLE SPASMS pantoprazole 40 mg tablet,delayed release (DR/EC) 40 mg PO BID Qty: 90 3RF metoprolol tartrate 25 mg tablet 25 mg PO BID Qty: 180 3RF magnesium oxide 400 mg magnesium Capsule 400 mg PO DAILY lidocaine 5 % adhesive patch,medicated 1 - 3 patch transdermal DAILY PRN (Reason: Pain) Rx Instructions: on for 12 hours off for 12 hours nitroglycerin [Nitrostat] 0.4 mg Tablet, Sublingual 0.4 mg SUBLINGUAL Q5M PRN (Reason: Chest Pain) Rx Instructions: do not exceed 3 doses per episode budesonide 0.5 mg/2 mL suspension for nebulization 0.5 mg inhalation BID PRN (Reason: Shortness Of Breath Or Wheezing) Suboxone 8-2 mg Film 1 film BUCCAL TID Discharge Orders: Discharge ED (Routine); Ordered 01/23/25 Ordered By: Yessenia Mendez Referrals: Roger Reynoso DO [Primary Care Provider] - Discharge Diet: Usual diet Discharge Activity: Increase activity as tolerated Patient Instructions: COPD (Chronic Obstructive Pulmonary Disease) (ED), Opioid Safety, Pain Management Activity Restrictions/Additional Instructions: Thank you for choosing [facility] for your healthcare needs today. Please realize this is an emergency room and that we are providing you with a medical screening exam and this may not be complete and all inclusive of all the testing and or work up that you may need to determine your ailment or severity of your illness. You have been screened and evaluated and felt safe for discharge. Health conditions do change or evolve sometimes and as such it is important that you follow up with your Primary Doctor to be re checked, 3-5 days is a general good time frame for follow up. You are always welcome to return to the ED for re assessment if your symptoms are worsening or you have new concerns Print Language: [place] Coding Level of Care Code ED Veterinarian Small Animal for Delmer Ray
[2025-01-23] MEDS: methylPREDNISolone sod succ 125 mg/2 mL INJ IVP (19:44)
[2025-01-23 19:45] VITALS: BP 108/73; PULSE 98; RESP 22; O2SAT 100
[2025-01-23] MEDS: albuterol 2.5 mg/3 mL Neb INHALATION (19:48)
[2025-01-23] MEDS: ipratropium-albuterol 3 mL Neb INHALATION (19:48)
[2025-01-23 19:49] VITALS: PULSE 106; RESP 24; O2SAT 100
[2025-01-23 20:08] LABS: Basophils % 0.2 %; Eosinophils % 0.1 %; Hematocrit 27.2 % (36-47); Lymphocytes # 0.4 10^3/uL (0.8-4.8); Lymphocytes % 3.1 %; Mean Corpuscular Hemoglobin 23.8 pg (27-33); Mean Corpuscular Volume 81.9 fl (85-98); Mean Platelet Volume 9.3 fL (7.4-10.4); Monocytes # 0.7 10^3/uL (0.2-0.9); Neutrophils # 12.46 10^3/uL (1.8-7.7); Neutrophils % 90.2 %; Nucleated Red Blood Cells % 0 %; Platelet Count 173 10^3/cmm (157-399); Red Blood Count 3.32 10^6/uL (3.85-5.65); White Blood Count 13.81 10^3/uL (3.29-11.43)
[2025-01-23 20:14] LABS: Alanine Aminotransferase 11 U/L (0-33); Albumin Level 2.9 g/dL (3.5-5.2); Alkaline Phosphatase 164 U/L (35-105); Anion Gap 12.9 (5-19); Aspartate Amino Transferase 19 U/L (0-32); Blood Urea Nitrogen 23 mg/dL (8-23); C Reactive Protein 125.5 mg/L (0.0-4.9); Calcium 7.8 mg/dL (8.5-10.5); Carbon Dioxide 34 mmol/L (22-29); Chloride 88 mmol/L (98-107); Creatinine Clr Calc Pharmacy 28.4796; Globulin 3.1 g/dL (1.3-4.6); Glucose 211 mg/dL (65-115); Osmolality Calculated 282 mOsm/kg (285-295); Potassium 3.9 mmol/L (3.5-5.1); Sodium 131 mmol/L (136-145)
[2025-01-23 20:15] LABS: Lactic Sepsis W/Reflex 2.4 mmol/L (0.5-2.2)
[2025-01-23 20:28] LABS: ABG PCO2 56.8 mmHg (35-45); ABG PH Result 7.41 (7.35-7.45); Arterial Blood Gas Hematocrit 28.8 % (37-47); Blood Gas Allen Test Pos; Blood Gas Operator Identificat BUSJA; Blood Gas Sample Site Radial, left; Blood Gas Sample Type Arterial; Carboxyhemoglobin 2.1 %THgb (0.4-20.1); HCO3 ABG 36.1 mmol/L (22-26); HGB O2 Sat 96.5 % (95-100); Oxygen Device NC; Oxygen Saturation ABG > 99.1; Potassium Level - ABG 3.8 mmol/L (3.5-5.0); Total Hemoglobin 9.4 g/dL (12-16)
[2025-01-23 20:36] LABS: Influenza A NEGATIVE (Negative); Influenza B NEGATIVE (Negative); Respiratory Syncytial Virus Ce NEGATIVE (Negative); SARS-CoV-2 PCR NEGATIVE (Negative)
[2025-01-23 20:42] VITALS: BP 111/93; PULSE 99; RESP 18; O2SAT 98
[2025-01-23 21:35] LABS: Reflex Lactate Order REFLEX LACTIC ORDERD
[2025-01-23 23:36] VITALS: BP 119/60; PULSE 95; RESP 18; O2SAT 100
[2025-01-24 07:30] LABS: Bacillus cereus group Not Detected (NOT DETECT); Bacillus subtillis group Not Detected (NOT DETECT); Corynebacterium Not Detected (NOT DETECT); Cutibacterium acnes (P.acnes) Not Detected (NOT DETECT); Enterococcus faecium Not Detected (NOT DETECT); Lactobacillus species Not Detected (NOT DETECT); Listeria Not Detected (NOT DETECT); Listeria monocytogenes Not Detected (NOT DETECT); Micrococcus Not Detected (NOT DETECT); Pan Candida Not Detected (NOT DETECT); Pan Gram-Negative Not Detected (NOT DETECT); Staphylococcus epidermidis Not Detected (NOT DETECT); Staphylococcus lugdunensis Not Detected (NOT DETECT); Staphylococcus species Not Detected (NOT DETECT); Streptococcus agalactiae Not Detected (NOT DETECT); Streptococcus anginosus group Not Detected (NOT DETECT); Streptococcus pneumoniae Not Detected (NOT DETECT); Streptococcus pyogenes Not Detected (NOT DETECT); Streptococcus species Not Detected (NOT DETECT); vanA Not Detected ` (NOT DETECT); vanC Not Detected (NOT DETECT)
[2025-01-24 09:06] LABS: Enterococcus Detected (NOT DETECT); Enterococcus faecalis Detected (NOT DETECT)
--- NOTE | 2025-01-24 15:50 | PC.NURSE ---
NURSE CALLED PT TO COME BACK FOR ADMISSION D/T POSITIVE BLOOD CULTURES
== END 2025-01-23 23:00 | disposition home or self-care (01) ==
PROVIDERS: Emergency Provider Emergency Medicine; PCP Family Medicine
DX: J44.1 Chronic obstructive pulmonary disease with (acute) exacerbation (principal); J96.11 Chronic respiratory failure with hypoxia; J20.9 Acute bronchitis, unspecified; Z11.52 Encounter for screening for COVID-19; Z79.01 Long term (current) use of anticoagulants; Z86.73 Personal history of transient ischemic attack (TIA), and cerebral infarction without residual deficits; E78.5 Hyperlipidemia, unspecified; F17.200 Nicotine dependence, unspecified, uncomplicated; Z99.81 Dependence on supplemental oxygen; I25.10 Atherosclerotic heart disease of native coronary artery without angina pectoris
CPT/HCPCS: 36415; 36600; 71045; 80051; 80053; 82330; 82805; 83605; 85025; 86140; 87040; 87077; 87150; 87186; 87205; 87637; 94640; 96374; 96375; 99284; J1642; J2919; J7613

== ENCOUNTER 2025-01-24 19:05 | Inpatient (IN) | payer MEDICAID, SELFPAY ==
[2025-01-24 19:16] VITALS: BP 100/49; PULSE 115; RESP 17; TEMP 36.6; O2SAT 95; BMI 19.1
--- NOTE | 2025-01-24 19:19 | XRR_ITS ---
PROCEDURE INFORMATION: Exam: XR Chest Exam date and time: 01/24/2025 8:19 PM Age: 74 years old Clinical indication: Fever TECHNIQUE: Imaging protocol: Radiologic exam of the chest. Views: 1 view. COMPARISON: CR (CHEST, ) 01/23/2025 7:43 PM FINDINGS: Tubes, catheters and devices: Stable left subclavian pacer with a single right ventricular lead and right subclavian Port-A-Cath with the tip in the right atrium. Lungs: Unremarkable. No consolidation. Pleural spaces: Unremarkable. No pleural effusion. No pneumothorax. Heart/Mediastinum: Stable cardiomediastinal silhouette. Bones/joints: Unremarkable. XR/XR chest 1V portable [id number] IMPRESSION: No acute cardiopulmonary findings.
--- NOTE | 2025-01-24 19:55 | ED_ITS ---
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 Blood cultures today were 4/4 Enterococcus faecalis. She says she has not felt well today. Still achy and short of breath. No fevers today. Blood pressure soft and her heart rates mildly elevated Related Data Home Medications ?Medication ?Instructions ?Recorded ?Confirmed lidocaine 5 % topical patch 1 - 3 patch transdermal DA DOMENIC PRN 05/21/23 10/25/24 Pain budesonide 0.5 mg/2 mL suspension 0.5 mg inhalation BI D PRN 07/27/23 10/25/24 for nebulization Shortness Of Breath Or Wheez ing nitroglycerin 0.4 mg sublingual 0.4 mg sublingual Q5M PRN Chest 07/27/23 10/25/24 tablet (Nitrostat) Pain magnesium oxide 400 mg PO DAILY 11/12/23 buprenorphine 8 mg-naloxone 2 mg 1 film buccal TID 10/25/24 sublingual film (Suboxone) ferrous sulfate 325 mg (65 mg 325 mg PO DAILY 08/17/24 10/25/24 iron) tablet Previous Rx's ?Medication ?Instructions ?Recorded lidocaine-prilocaine 2.5 %-2.5 % 1 applic topical YING Y PRN pain 08/12/23 topical cream #50 grams fluticasone 500 mcg-salmeterol 50 1 inh inhalation BID #60 ea 09/02/23 mcg/dose blistr powdr for inhalation (Advair Diskus) albuterol sulfate 90 mcg/actuation 2 puff inhalation Q 4H PRN 12/16/23 aerosol inhaler shortness of breath or wheez ing #6.7 grams ondansetron 4 mg disintegrating 4 mg PO Q8H PRN nausea and 02/24/24 tablet vomiting #30 tabs calcitriol 0.5 mcg capsule 0.5 mcg PO DAILY #90 caps 0 05/25/24 (Rocaltrol) bumetanide 1 mg tablet 1 mg PO BID #60 tabs 4 potassium chloride 20 mEq/15 mL 15 meq (11.25 mL) PO B ID #450 mL 07/20/24 oral liquid chlorpheniramine 4 5 ml PO Q6H PRN cold symptom s #160 08/03/24 mg-phenylephrine 10 mg-DM 15 mg/5 mL mL oral liquid (Ed A-Hist DM) nicotine See Rx Instructions transder mal 08/08/24 21mg/24hr-14mg/24hr-7mg/24hr daily .COMPLEX #56 patche s transderm patches,sequentl loratadine 10 mg tablet 10 mg PO DAILY #30 tabs 07/30 08/22 apixaban 2.5 mg tablet (Eliquis) 2.5 mg PO BID #60 tab s 08/28/24 roflumilast 500 mcg tablet 500 mcg PO DAILY #30 tabs 1 12/03/23 diphenoxylate-atropine 2.5 1 tab PO BID PRN diarrhea # 30 tabs 10/10/24 mg-0.025 mg tablet (Lomotil) fluticasone propionate 50 2 spray intranasal DAILY sin us 11/02/24 mcg/actuation nasal congestion #16 grams spray,suspension cilostazol 50 mg tablet 50 mg PO BID #90 tabs levothyroxine 50 mcg tablet 50 mcg PO DAILY thyroid #9 0 tabs 11/16/24 montelukast 4 mg chewable tablet 8 mg (2 x 4 mg) PO DA DOMENIC #60 tabs 11/24/24 baclofen 10 mg tablet See Rx Instructions .Route 1 .COMPLEX #90 tabs pantoprazole 40 mg tablet,delayed 40 mg PO BID #90 tab s 11/28/24 release metoprolol tartrate 25 mg tablet 25 mg PO BID #180 tab s 12/27/24 atorvastatin 20 mg tablet See Rx Instructions .Route 0 01/04/25 .COMPLEX #90 tabs mupirocin 2 % topical ointment 1 applic topical BID na res #22 01/04/25 grams azithromycin 250 mg tablet See Rx Instructions PO .COM PLEX #6 01/23/25 (Zithromax Z-Rodger) tabs prednisone 20 mg tablet 40 mg (2 x 20 mg) PO DAILY 5 days 01/23/25 #10 tabs Allergies Allergy/AdvReac Type Severity Reaction Status Date / Time amiodarone Allergy Severe ADR-Confusi Verified 01/24/25 19:21 on 2-octyl cyanoacrylate Allergy ALGY-Rash Verified 01/24/25 19:21 adhesive tape Allergy ALGY-Rash Verified 01/24/25 19:21 amitriptyline Allergy ALGY-Hives Verified 01/24/25 19:21 amoxicillin Allergy ALGY-Hives Verified 01/24/25 19:21 cefaclor (From Ceclor) Allergy ALGY-Difficulty Verified 01/24/25 19:21 Breathing ciprofloxacin (From Cipro) Allergy ALGY-Difficulty Verified 01/24/25 19:21 Breathing gabapentin Allergy ALGY-Hives Verified 01/24/25 19:21 ibuprofen Allergy ALGY-Hives Verified 01/24/25 19:21 metronidazole (From Flagyl) Allergy ALGY-Hives Verified 01/24/25 19:21 Penicillins Allergy ALGY-Hives Verified 01/24/25 19:21 Sulfa (Sulfonamide Allergy ALGY-Hives Verified 01/24/25 19:21 Antibiotics) sulfamethoxazole (From Allergy ALGY-Difficulty Verified 01/24/25 19:21 Bactrim) Breathing tetracycline Allergy ALGY-Hives Verified 01/24/25 19:21 trimethoprim Allergy ALGY-Hives Verified 01/24/25 19:21 Review of Systems Narrative: Constitutional symptoms: Negative except as documented in HPI. Skin symptoms: Negative except as documented in HPI. Eye symptoms: Negative except as documented in HPI. ENMT symptoms: Negative except as documented in HPI. Respiratory symptoms: Negative except as documented in HPI. Cardiovascular symptoms: Negative except as documented in HPI. Gastrointestinal symptoms: Negative except as documented in HPI. Genitourinary symptoms: Negative except as documented in HPI. Musculoskeletal symptoms: Negative except as documented in HPI. Neurologic symptoms: Negative except as documented in HPI. Psychiatric symptoms: Negative except as documented in HPI. Endocrine symptoms: Negative except as documented in HPI. PFSH ED PFSH: Medical History Lung nodule Skin lesions Dyslipidemia (high LDL; low HDL) Acute exacerbation of chronic obstructive pulmonary disease Lump of right breast Lung cancer right lower lobe Left shoulder pain Avulsion fracture of left talus Skin tear of right upper arm without complication Orthopnea Sinus node dysfunction Sinus pause Bradycardia Orthostatic hypotension Hypovitaminosis D Seizure-like activity Syncopal episodes Nicotine dependence, cigarettes, with unspecified nicotine-induced disorders Sacral decubitus ulcer Chronic rhinosinusitis Infected epidermoid cyst Fall Cor pulmonale Cor pulmonale Leg pain, left Nicotine addiction Chronic respiratory failure with hypoxia Aortic cusp regurgitation Actinic keratosis due to exposure to sunlight Closed intertrochanteric fracture of right hip Smoking addiction Chronic pain Thyroid cancer SOB (shortness of breath) History of COPD CVA (cerebral vascular accident) Benign essential hypertension CAD (coronary artery disease) Hx of carotid stenosis Leg pain, medial Neck strain COPD (chronic obstructive pulmonary disease) Plantar porokeratosis, acquired Surgical History Status post cardiac pacemaker procedure History of bronchoscopy History of hip surgery Hx of hysterectomy History of bilateral carpal tunnel release History of lumpectomy History of rectal surgery History of ankle surgery Status post open reduction and internal fixation (ORIF) of fracture H/O thyroidectomy S/P hardware removal Spine History of back surgery Port-A-Cath in place Family History Brother Leukemia Diabetes Lung disease Mother Anesthesia complication CAD (coronary artery disease) Father Bleeding disorder Clotting disorder CAD (coronary artery disease) Cancer Stroke Sister CAD (coronary artery disease) Chronic kidney disease (CKD) Lung disease Family/Other Diabetes Stroke Grandfather Suicide Denies family history of Dementia Social History Smoking and tobacco/nicotine status: never used tobacco/nicotine Quit status (tobacco/nicotine): considering quitting Second hand smoke exposure: Yes Alcohol intake: never Substance/Drug Use: current Other substance/drug use details: Couple of months ago Gummies Adopted: No Lives independently: Yes Household members: none Housing: Apartment Marital status: / Current occupational status: disabled Do you think of yourself as: Straight/Heterosexual Current gender identity: Female Physical Exam Narrative: EXAM NARRATIVE: General: Alert, no acute distress. Skin: Warm, dry. Head: Normocephalic, atraumatic. Neck: Supple, trachea midline. Eye: Extraocular movements are intact. Ears, nose, mouth and throat: Oral mucosa moist. Cardiovascular: Regular, tachycardic, Normal peripheral perfusion. Respiratory: some expiratory wheeze, mild increased wob, breath sounds are equal, Symmetrical chest wall expansion. Gastrointestinal: Soft, Nontender, Non distended, Normal bowel sounds. Musculoskeletal: Normal ROM, no deformity. Neurological: Alert and oriented to person, place, time, and situation, No focal neurological deficit observed. Psychiatric: Cooperative, appropriate mood & affect. Course Vital Signs: Vital signs: Vital Signs Temperature 98 F 01/24/25 19:16 Pulse Rate 115 H 01/24/25 19:16 Respiratory Rate 17 01/24/25 19:16 Blood Pressure 100/49 01/24/25 19:16 Pulse Oximetry 95 01/24/25 19:16 Oxygen Delivery Me thod Room Air 01/24/25 19:16 MDM - General Adult Medical Decision Making Medical decision making: Differential diagnosis including but not limited to and based on the above HPI, review of systems and physical exam: Patient with positive blood cultures, possible bacteremia. Rule out sepsis. Orders placed to evaluate differential diagnosis based on the above differential, HPI and physical exam Consultation: I spoke with Dr. De Los Santos who agrees to admission. Assessment and plan: Enterococcus bacteremia COPD with acute exacerbation ?Normal saline bolus and IV Zyvox -I discussed the patient with the hospitalist on-call who is admitting the patient. - Discussed findings and plan with patient. Answered any questions. - All laboratory values were reviewed and interpreted personally by myself, the ER physician - All imaging was reviewed and interpreted personally by myself, the ER physician. - Evaluation and treatment of this problem were appropriate in the emergency setting No radiology studies performed this visit Discharge Plan Discharge Patient Disposition: Admitted As Inpatient Clinical Impression: Bacteremia, COPD with acute exacerbation, Enterococcus faecalis infection Condition: Stable Coding Level of Care Code ED Transitional Care Nurse for Delmer Ray
--- NOTE | 2025-01-24 19:58 | PM.HP ---
Providers/Chief Complaint Primary Care Provider: Roger Reynoso DO Chief Complaint: ER called told to comeback for IV antibiotics History of Present Illness Sakina Lombardi is a 74 year old female COPD, CAD, cor pulmonale, smoking addiction, hx of carotid stenosis, dyslipidemia, PPM for syncope and bradycardia was seen in the ER yesterday for COPD exacerbation was treated with steroids, sent home, was called in today for positive blood culture with her coccus faecalis, her leukocytosis has worsened she is on steroids, no fever. Patient is stating that for last 2 to 3 days she has been noticing dysuria, burning with micturition concentrated color of urine, she has been noticing rigors and chills, she was concerned about UTI, she has not noticed any nausea, vomiting diarrhea chest pain or worsening of shortness of breath in last 24 hours Workup in the ER revealed leukocytosis stable hemoglobin chronic anemia, lactic acid is normal potassium normal Patient is stating that she has history of thyroid cancer status post thyroidectomy, history of lung cancer, last chemotherapy session was 10 years ago She has a Port-A-Cath in place because of poor venous access Lives alone, uses 2 to 3 L of oxygen at baseline, still smokes a few cigarettes here and there, last cigarette was 2 days ago Review of Systems Const: Reports: fever(s) and chills Eyes: Denies: change in vision ENMT: Denies: throat pain Card: Denies: chest pain Resp: Reports: dyspnea GI: Reports: nausea : Reports: difficulty voiding Musc: Reports: back pain Medications/Allergies Home Medications ?Medication ?Instructions ?Recorded ?Confirmed ?Last Taken ?Type lidocaine 5 % topical patch 1 - 3 patch transdermal DAILY PRN 05/21/23 10/25/24 Unknown History Pain budesonide 0.5 mg/2 mL suspension 0.5 mg inhalation BID PRN 07/27/23 10/25/24 Unknown History for nebulization Shortness Of Breath Or Wheezing nitroglycerin 0.4 mg sublingual 0.4 mg sublingual Q5M PRN Chest 07/27/23 10/25/24 11/12/23 History tablet (Nitrostat) Pain lidocaine-prilocaine 2.5 %-2.5 % 1 applic topical DAILY PRN pain 08/12/23 10/25/24 Unknown Rx topical cream #50 grams fluticasone 500 mcg-salmeterol 50 1 inh inhalation BID #60 ea 09/02/23 10/25/24 11/07/23 Rx mcg/dose blistr powdr for inhalation (Advair Diskus) magnesium oxide 400 mg PO DAILY 11/12/23 10/25/24 11/11/23 History albuterol sulfate 90 mcg/actuation 2 puff inhalation Q4H PRN 12/16/23 10/25/24 Unknown Rx aerosol inhaler shortness of breath or wheezing #6.7 grams ondansetron 4 mg disintegrating 4 mg PO Q8H PRN nausea and 02/24/24 10/25/24 Unknown Rx tablet vomiting #30 tabs buprenorphine 8 mg-naloxone 2 mg 1 film buccal TID 04/24/24 10/25/24 Unknown History sublingual film (Suboxone) calcitriol 0.5 mcg capsule 0.5 mcg PO DAILY #90 caps 05/25/24 10/25/24 Unknown Rx (Rocaltrol) bumetanide 1 mg tablet 1 mg PO BID #60 tabs 07/20/24 01/04/25 Unknown Rx potassium chloride 20 mEq/15 mL 15 meq (11.25 mL) PO BID #450 mL 07/20/24 10/25/24 Unknown Rx oral liquid chlorpheniramine 4 5 ml PO Q6H PRN cold symptoms #160 08/03/24 10/25/24 Unknown Rx mg-phenylephrine 10 mg-DM 15 mg/5 mL mL oral liquid (Ed A-Hist DM) nicotine See Rx Instructions transdermal 08/08/24 10/25/24 Unknown Rx 21mg/24hr-14mg/24hr-7mg/24hr daily .COMPLEX #56 patches transderm patches,sequentl ferrous sulfate 325 mg (65 mg 325 mg PO DAILY 08/17/24 10/25/24 Unknown History iron) tablet loratadine 10 mg tablet 10 mg PO DAILY #30 tabs 08/17/24 10/25/24 Unknown Rx apixaban 2.5 mg tablet (Eliquis) 2.5 mg PO BID #60 tabs 08/28/24 12/12/24 Unknown Rx roflumilast 500 mcg tablet 500 mcg PO DAILY #30 tabs 10/03/24 10/25/24 Unknown Rx diphenoxylate-atropine 2.5 1 tab PO BID PRN diarrhea #30 tabs 10/10/24 10/25/24 Unknown Rx mg-0.025 mg tablet (Lomotil) fluticasone propionate 50 2 spray intranasal DAILY sinus 11/02/24 11/02/24 Unknown Rx mcg/actuation nasal congestion #16 grams spray,suspension cilostazol 50 mg tablet 50 mg PO BID #90 tabs 11/07/24 Unknown Rx levothyroxine 50 mcg tablet 50 mcg PO DAILY thyroid #90 tabs 11/16/24 11/16/24 Unknown Rx montelukast 4 mg chewable tablet 8 mg (2 x 4 mg) PO DAILY #60 tabs 11/24/24 Unknown Rx baclofen 10 mg tablet See Rx Instructions .Route 11/28/24 Unknown Rx .COMPLEX #90 tabs pantoprazole 40 mg tablet,delayed 40 mg PO BID #90 tabs 11/28/24 Unknown Rx release metoprolol tartrate 25 mg tablet 25 mg PO BID #180 tabs 12/27/24 Unknown Rx atorvastatin 20 mg tablet See Rx Instructions .Route 01/04/25 01/04/25 Unknown Rx .COMPLEX #90 tabs mupirocin 2 % topical ointment 1 applic topical BID nares #22 01/04/25 01/04/25 Unknown Rx grams azithromycin 250 mg tablet See Rx Instructions PO .COMPLEX #6 01/23/25 Unknown Rx (Zithromax Z-Rodger) tabs prednisone 20 mg tablet 40 mg (2 x 20 mg) PO DAILY 5 days 01/23/25 Unknown Rx #10 tabs Allergies Allergy/AdvReac Type Severity Reaction Status Date / Time amiodarone Allergy Severe ADR-Confusi Verified 01/24/25 19:21 on 2-octyl cyanoacrylate Allergy ALGY-Rash Verified 01/24/25 19:21 adhesive tape Allergy ALGY-Rash Verified 01/24/25 19:21 amitriptyline Allergy ALGY-Hives Verified 01/24/25 19:21 amoxicillin Allergy ALGY-Hives Verified 01/24/25 19:21 cefaclor (From Ceclor) Allergy ALGY-Difficulty Verified 01/24/25 19:21 Breathing ciprofloxacin (From Cipro) Allergy ALGY-Difficulty Verified 01/24/25 19:21 Breathing gabapentin Allergy ALGY-Hives Verified 01/24/25 19:21 ibuprofen Allergy ALGY-Hives Verified 01/24/25 19:21 metronidazole (From Flagyl) Allergy ALGY-Hives Verified 01/24/25 19:21 Penicillins Allergy ALGY-Hives Verified 01/24/25 19:21 Sulfa (Sulfonamide Allergy ALGY-Hives Verified 01/24/25 19:21 Antibiotics) sulfamethoxazole (From Allergy ALGY-Difficulty Verified 01/24/25 19:21 Bactrim) Breathing tetracycline Allergy ALGY-Hives Verified 01/24/25 19:21 trimethoprim Allergy ALGY-Hives Verified 01/24/25 19:21 PFSH Acute PFSH: Medical History (Updated 01/24/25 @ 21:56 by Joseph De Los Santos MD) Tobacco dependence Weakness Passed out Syncope Localized swelling of both lower legs Lung nodule Skin lesions Dyslipidemia (high LDL; low HDL) Acute exacerbation of chronic obstructive pulmonary disease Lump of right breast Lung cancer right lower lobe Left shoulder pain Avulsion fracture of left talus Skin tear of right upper arm without complication Orthopnea Sinus node dysfunction Sinus pause Bradycardia Orthostatic hypotension Hypovitaminosis D Seizure-like activity Syncopal episodes Nicotine dependence, cigarettes, with unspecified nicotine-induced disorders Sacral decubitus ulcer Chronic rhinosinusitis Infected epidermoid cyst Fall Cor pulmonale Cor pulmonale Leg pain, left Nicotine addiction Chronic respiratory failure with hypoxia Aortic cusp regurgitation Actinic keratosis due to exposure to sunlight Closed intertrochanteric fracture of right hip Smoking addiction Chronic pain Thyroid cancer SOB (shortness of breath) History of COPD CVA (cerebral vascular accident) Benign essential hypertension CAD (coronary artery disease) Hx of carotid stenosis Leg pain, medial Neck strain COPD (chronic obstructive pulmonary disease) Plantar porokeratosis, acquired Surgical History Status post cardiac pacemaker procedure History of bronchoscopy History of hip surgery Hx of hysterectomy History of bilateral carpal tunnel release History of lumpectomy History of rectal surgery History of ankle surgery Status post open reduction and internal fixation (ORIF) of fracture H/O thyroidectomy S/P hardware removal Spine History of back surgery Port-A-Cath in place Family History Brother Leukemia Diabetes Lung disease Mother Anesthesia complication CAD (coronary artery disease) Father Bleeding disorder Clotting disorder CAD (coronary artery disease) Cancer Stroke Sister CAD (coronary artery disease) Chronic kidney disease (CKD) Lung disease Family/Other Diabetes Stroke Grandfather Suicide Denies family history of Dementia Social History Smoking and tobacco/nicotine status: never used tobacco/nicotine Quit status (tobacco/nicotine): considering quitting Second hand smoke exposure: Yes Alcohol intake: never Substance/Drug Use: current Other substance/drug use details: Couple of months ago Gummies Adopted: No Lives independently: Yes Household members: none Housing: Apartment Marital status: / Current occupational status: disabled Do you think of yourself as: Straight/Heterosexual Current gender identity: Female Vitals/I&O/Wt Last Vital Signs Temp 98 F 01/24/25 19:16 Pulse 115 H 01/24/25 19:16 Resp 17 01/24/25 19:16 BP 100/49 01/24/25 19:16 Pulse Ox 95 01/24/25 19:16 O2 Del Method Room Air 01/24/25 19:16 Weight last 48 hrs Weight 43.091 kg Physical Exam Narrative: Patient is awake and alert Malnourished Sarcopenia Lower extremity nonpurulent cellulitis left ankle area Abdomen soft S1, S2 Currently on 2 L nasal cannula Bilateral rhonchi GCS 15 Nonfocal neuroexam Awake and alert AO x 4 Sepsis: Is patient septic: Yes Focused sepsis exam performed: Yes Focused sepsis exam: Cap refill less than 3 sec. No active encephalopathy Peripheral pulses intact Heart rate 115 On 2 L nasal cannula Date exam was performed: 01/24/25 Time exam was performed: 21:54 Data 01/24/25 20:16 01/24/25 20:16 A&P Assessment and plan (1) Chronic diastolic heart failure: (2) Presence of permanent cardiac pacemaker: (3) Atrial fibrillation: Qualifiers: Atrial fibrillation type: persistent (not longstanding) Qualified Code(s): I48.19 - Other persistent atrial fibrillation (4) Port-A-Cath in place: (5) PVD (peripheral vascular disease): (6) Easy bruising: (7) Acquired hypothyroidism: (8) Metabolic alkalosis: (9) Dysuria: (10) Anemia: Qualifiers: Anemia type: iron deficiency Iron deficiency anemia type: inadequate dietary iron intake Qualified Code(s): D50.8 - Other iron deficiency anemias (11) Bacteremia: (12) Enterococcus faecalis infection: (13) Encounter for smoking cessation counseling: (14) Sepsis: Plan Bacteremia Blood cultures taken 01/23 Source seem to be UTI Requested urine and blood culture Enterococcus faecalis Will start vancomycin Repeat cultures by tomorrow 48 hours after 01/23 Requested echo as well Diastolic CHF without acute exacerbation Contraction alkalosis noted Clinically does not look decompensated heart failure Hold off on diuretics Chronic hypoxia requires 2 L at baseline No acute exacerbation For COPD continue DuoNeb treatment, avoid steroids at this point Peripheral vascular disease continue cilostazol SIRS criteria met with tachypnea tachycardia leukocytosis, lactic acid is normal, Sepsis related to UTI and bacteremia Septic bolus to be administered at the time of my evaluation Patient received 1 L in the ER so far I have requested urine culture along blood cultures Acute on chronic kidney disease: Likely related to sepsis and dehydration Anticipate improvement with fluid hydration Patient has contraction alkalosis as well Full code Cardiac diet Patient takes Eliquis along AV mazin blocking agent for A-fib which I would continue History of lung cancer, thyroid cancer status post thyroidectomy Last chemotherapy session for lung cancer was 10 years ago Has Port-A-Cath secondary to poor peripheral access Lives alone, uses a walker at home PDMP PDMP Reviewed: Not Reviewed Attestations Medical Necessity Statement*: More than 2 midnights anticipated Coding Level of Care Code Acute Code for Chg Fwd Diagnoses Chronic diastolic heart failure I50.32 Presence of permanent cardiac pacemaker Z95.0 Persistent atrial fibrillation I48.19 Atrial fibrillation type: persistent (not longstanding) Port-A-Cath in place Z95.828 PVD (peripheral vascular disease) I73.9 Easy bruising R23.3 Acquired hypothyroidism E03.9 Metabolic alkalosis E87.3 Dysuria R30.0 Iron deficiency anemia secondary to inadequate dietary iron intake D50.8 Anemia type: iron deficiency Iron deficiency anemia type: inadequate dietary iron intake Bacteremia R78.81 Enterococcus faecalis infection A49.8 Encounter for smoking cessation counseling Z71.6 Sepsis A41.9
--- NOTE | 2025-01-24 20:00 | USCV_ITS ---
Sakina Lombardi Age: 74 Gender: F : 1950 Exam Date: 01/24/2025 21:56 Ordering Phys: Joseph De Los Santos MD Technologist: KIP Exam Location: [facility] [place] Indication: bacteremia COPD, CAD, tobacco dependence, dyslipidemia, pacer BP: 100 / 49 HR: 85 Rhythm: Sinus rhythm with strings of atrial fibrillation Technical Quality: Adequate MEASUREMENTS (Male / Female) Normal Values 2D ECHO LV Diastolic Diameter PLAX 3.8 cm 4.2 - 5.9 / 3.9 - 5.3 cm IVS Diastolic Thickness 0.7 cm 0.6 - 1.0 / 0.6 - 0.9 cm IVS Systolic Thickness 0.9 cm LVPW Diastolic Thickness 1.2 cm 0.6 - 1.0 / 0.6 - 0.9 cm LVPW Systolic Thickness 1.7 cm LVOT Diameter 1.5 cm LV Ejection Fraction 2D Teich 77.8 % LV Ejection Fraction MOD 4C 70.9 % LV Ejection Fraction MOD 2C 57.2 % LV Ejection Fraction 2C AL 57.5 % LA Diameter 3.3 cm Aorta at Sinotubular Diameter 2.4 cm IVC Diameter 2.7 cm M-MODE LA Ao Ratio MM 1.3 AV Cusp Separation MM 1.1 cm DOPPLER AV Peak Velocity 163.0 cm/s LVOT Peak Velocity 99.0 cm/s AV Area Cont Eq vti 1.5 cm squared AV Area Cont Eq pk 1.1 cm squared MV Peak Velocity 148.0 cm/s MV Area PHT 5.5 cm squared Mitral E to A Ratio 1.1 TV Peak Velocity 274.7 cm/s TR Peak Velocity 287.0 cm/s TR Peak Gradient 32.9 mmHg TV Peak E Velocity 111.0 cm/s PV Peak Velocity 124.0 cm/s FINDINGS Left Ventricle Left atrium is normal in size. LV systolic function is normal with EF 55 to 60%. No regional wall motion abnormalities are seen. Right Ventricle Normal in size and function Right Atrium Echogenic structure is seen in the right atrium in proximity to tricuspid valve. Left Atrium Normal in size Mitral Valve Structurally normal mitral valve. Moderate mitral regurgitation Aortic Valve Aortic valve is thickened and calcified. Moderate to severe aortic regurgitation. Tricuspid Valve Moderate to severe tricuspid regurgitation. RVSP is 35 to 40 mmHg. This is consistent with mild pulmonary hypertension. Pulmonic Valve Not well visualized Pericardium Normal Aorta Normal in size IVC Dilated CONCLUSIONS LV systolic function is normal with EF 55 to 60%. Echogenic structure seen in right atrium and proximity to tricuspid valve. Moderate mitral regurgitation Moderate to severe aortic regurgitation. Moderate to severe tricuspid regurgitation. Mild pulmonary hypertension IVC is dilated Tai Ramirez MD (Electronically Signed) Final Date: 25 January 2025 18:04 S
[2025-01-24 20:23] LABS: Basophils % 0.1 %; Eosinophils # 0.1 10^3/uL (0.0-0.8); Eosinophils % 0.4 %; Hematocrit 27.6 % (36-47); Lymphocytes # 0.6 10^3/uL (0.8-4.8); Lymphocytes % 3.5 %; Mean Corpuscular HGB Conc 29.3 g/dL (30-55); Mean Corpuscular Hemoglobin 23.2 pg (27-33); Mean Corpuscular Volume 79.1 fl (85-98); Mean Platelet Volume 9.2 fL (7.4-10.4); Monocytes # 1.1 10^3/uL (0.2-0.9); Monocytes % 6.5 %; Neutrophils # 15.47 10^3/uL (1.8-7.7); Neutrophils % 88.5 %; Nucleated Red Blood Cells % 0 %; Platelet Count 214 10^3/cmm (157-399); Red Blood Count 3.49 10^6/uL (3.85-5.65); Red Cell Distribution Width 17.1 % (12.1-15.1); White Blood Count 17.49 10^3/uL (3.29-11.43)
[2025-01-24 20:24] LABS: Add Urine Microscopic? NO
[2025-01-24 20:25] LABS: Bilirubin Urine Negative (Negative); Blood Urine Negative (Negative); Glucose Urine UA Negative (Normal); Ketones Urine Negative (Negative); Leukocyte Esterase Urine Negative (Negative); Nitrate Urine Negative (Negative); Protein Urine Negative (Negative); Specific Gravity, Urine 1.012 (1.005-1.030); Urine Appearance Clear (CLEAR); Urine Color Yellow (Yellow); pH Urine 5.5 (5-7)
[2025-01-24 20:38] LABS: Charge for UA Resulting for Rev
[2025-01-24 20:45] LABS: Alanine Aminotransferase 11 U/L (0-33); Alkaline Phosphatase 174 U/L (35-105); Anion Gap 15.1 (5-19); Aspartate Amino Transferase 20 U/L (0-32); Blood Urea Nitrogen 31 mg/dL (8-23); Calcium 7.7 mg/dL (8.5-10.5); Carbon Dioxide 33 mmol/L (22-29); Chloride 89 mmol/L (98-107); Globulin 3.6 g/dL (1.3-4.6); Glucose 117 mg/dL (65-115); Lipase 20 U/L (13-60); Osmolality Calculated 284 mOsm/kg (285-295); Potassium 4.1 mmol/L (3.5-5.1); Sodium 133 mmol/L (136-145); Total Bilirubin 0.6 mg/dL (0.15-1.2); Total Protein 6.6 g/dL (6.6-8.7)
[2025-01-24 20:46] LABS: Lactic Sepsis W/Reflex 1.7 mmol/L (0.5-2.2)
--- NOTE | 2025-01-24 21:19 | PHA.VACGOAL ---
Vancomycin Goal - Goal Vancomycin Goal:: 15-20 mg/L Vancomycin Indication:: Other (BACTEREMIA) - Therapy Day of therpy:: Day []of [] . Actual body weight (kg): 43.091 kg - Data Labs: WBC 17.49 10^3/uL (3.29-11.43) H 01/24/25 20:16 RBC 3.49 10^6/uL (3.85-5.65) L 01/24/25 20:16 Hgb 8.10 g/dL (11.27-16.99) L 01/24/25 20:16 Hct 27.6 % (36-47) L 01/24/25 20:16 MCV 79.1 fl (85-98) L 01/24/25 20:16 MCH 23.2 pg (27-33) L 01/24/25 20:16 MCHC 29.3 g/dL (30-55) L 01/24/25 20:16 RDW 17.1 % (12.1-15.1) H 01/24/25 20:16 Sodium 133 mmol/L (136-145) L 01/24/25 20:16 Potassium 4.1 mmol/L (3.5-5.1) 01/24/25 20:16 Chloride 89 mmol/L (98-107) L 01/24/25 20:16 Carbon Dioxide 33 mmol/L (22-29) H 01/24/25 20:16 Anion Gap 15.1 (5-19) 01/24/25 20:16 BUN 31 mg/dL (8-23) H 01/24/25 20:16 Creatinine 1.4 mg/dL (0.5-0.9) H 01/24/25 20:16 GFR Calculation Not Reportable 01/24/25 20:16 Treatment plan:: new consult Regimen:: New start vancomycin for bacteremia. Blood cultures today were 4/4 Enterococcus faecalis. Received 1250 mg load dose. Patient's Crcl <30ml/min will start patient on Intermittent Pulse Dosing Post Load.
[2025-01-24] MEDS: sodium chloride 0.9% 1,000 ML 999 ML IV (21:24)
[2025-01-24] MEDS: vancomycin 1,250 MG/250 ML PIGGYBACK 166.67 MG IV (21:25)
[2025-01-24 21:39] VITALS: BP 152/76
[2025-01-24] MEDS: sodium chloride 0.9% 250 ML IV (23:38)
[2025-01-24] MEDS: buprenorphine-naloxone 4-1 mg Film 2 EACH SUBLINGUAL (23:38)
[2025-01-24 23:45] VITALS: BP 97/68; PULSE 100; O2SAT 99
[2025-01-25] VITALS (14 sets, daily range): BP systolic 100–130; BP diastolic 53–73; PULSE 96–106; RESP 17–20; TEMP 36.3–37.2; O2SAT 90–100; BMI 19.5
--- NOTE | 2025-01-25 01:36 | PC.NURSE ---
Report called to Carlene WINKLER on [place]. All questions and concerns were addressed at time of report.
[2025-01-25] MEDS: ipratropium-albuterol 3 mL Neb INHALATION ×4 (02:49→20:05)
[2025-01-25 05:28] LABS: Basophils % 0.1 %; Eosinophils # 0.1 10^3/uL (0.0-0.8); Eosinophils % 0.5 %; Hematocrit 26.2 % (36-47); Lymphocytes # 0.7 10^3/uL (0.8-4.8); Lymphocytes % 4.4 %; Mean Corpuscular HGB Conc 28.6 g/dL (30-55); Mean Corpuscular Hemoglobin 22.9 pg (27-33); Mean Corpuscular Volume 80.1 fl (85-98); Mean Platelet Volume 9.4 fL (7.4-10.4); Monocytes # 0.9 10^3/uL (0.2-0.9); Monocytes % 5.8 %; Neutrophils # 13.38 10^3/uL (1.8-7.7); Neutrophils % 88.3 %; Nucleated Red Blood Cells % 0 %; Platelet Count 182 10^3/cmm (157-399); Red Blood Count 3.27 10^6/uL (3.85-5.65); Red Cell Distribution Width 17.1 % (12.1-15.1); White Blood Count 15.14 10^3/uL (3.29-11.43)
[2025-01-25 05:47] LABS: Phosphorus 3.6 mg/dL (2.5-4.5)
[2025-01-25 05:52] LABS: Anion Gap 16.4 (5-19); Blood Urea Nitrogen 29 mg/dL (8-23); C Reactive Protein 90.4 mg/L (0.0-4.9); Calcium 7.2 mg/dL (8.5-10.5); Carbon Dioxide 30 mmol/L (22-29); Chloride 94 mmol/L (98-107); Glucose 122 mg/dL (65-115); Magnesium 1.2 mg/dL (1.7-2.3); Osmolality Calculated 291 mOsm/kg (285-295); Potassium 3.4 mmol/L (3.5-5.1); Sodium 137 mmol/L (136-145)
[2025-01-25] MEDS: metoprolol tartrate 25 mg Tablet PO ×2 (07:54→17:58)
[2025-01-25] MEDS: calcitriol 0.25 mcg Capsule 0.5 MCG PO (07:54)
[2025-01-25] MEDS: buprenorphine-naloxone 4-1 mg Film 2 EACH SUBLINGUAL ×3 (07:54→20:23)
[2025-01-25] MEDS: levothyroxine 50 mcg Tablet PO (07:54)
[2025-01-25] MEDS: pantoprazole DR 40 mg Tablet PO ×2 (07:54→17:59)
[2025-01-25] MEDS: sennosides-docusate Tablet 1 TAB PO (07:54)
[2025-01-25] MEDS: roflumilast 500 mcg Tablet PO (07:54)
[2025-01-25] MEDS: apixaban 5 mg Tablet 2.5 MG PO ×2 (07:55→17:59)
[2025-01-25] MEDS: potassium chloride ER 20 mEq Tablet PO (09:02)
[2025-01-25] MEDS: magnesium sulfate premix 2 GM/50 ML PIGGYBACK IV (09:02)
--- NOTE | 2025-01-25 10:16 | PC.PHAR ---
Pt verified all ther meds. Several have older last fill dates, which were verified.
--- NOTE | 2025-01-25 11:15 | P.PN_ITS ---
Subjective 2 Subjective: Patient going to the restroom at the time of evaluation. She denies fevers, chills, nausea or emesis. Discussed positive blood cultures. Discussed plan of care. She is in agreement. Medications: Reviewed: Yes Vitals/I&O/Wt Last Vital Signs Temp 98.9 F 01/25/25 08:09 Pulse 106 H 01/25/25 08:09 Resp 18 01/25/25 08:09 BP 110/53 01/25/25 08:09 Pulse Ox 100 01/25/25 08:09 O2 Del Method Nasal Cannula 01/25/25 08:09 O2 Flow Rate 3 01/25/25 08:09 01/24/25 01/25/25 01/25/25 22:59 06:59 14:59 Intake Total 1500 / 1500 410 / 410 Balance 1500 / 1500 410 / 410 Weight last 48 hrs Weight 48.308 kg Weight 45.359 kg Weight 43.091 kg Physical Exam 2 Narrative: General: Patient is awake. Frail-appearing. Pleasant. Head: Temporal wasting. Neck: No JVD. Cardiovascular: No gallops. No murmurs. Lungs: Bilateral rhonchi, dyspnea, on nasal cannula Skin: No jaundice. No rashes. Abdomen: Normal bowel sounds, abdomen soft and nontender. Extremities: No cyanosis or clubbing. Musculoskeletal: No swollen or erythematous joints. Neurological: Moves all 4 extremities. No myoclonus. Data 01/25/25 05:02 01/25/25 05:02 Micro: Microbiology 01/25/25 10:03 Blood Culture - Preliminary Blood SPECIMEN COLLECTED 01/24/25 21:19 Blood Culture - Preliminary Blood Enterococcus faecalis A&P Assessment and plan (1) Chronic diastolic heart failure: (2) Atrial fibrillation: Qualifiers: Atrial fibrillation type: persistent (not longstanding) Qualified Code(s): I48.19 - Other persistent atrial fibrillation (3) PVD (peripheral vascular disease): (4) Acquired hypothyroidism: (5) Metabolic alkalosis: (6) Dysuria: (7) Anemia: Qualifiers: Anemia type: iron deficiency Iron deficiency anemia type: inadequate dietary iron intake Qualified Code(s): D50.8 - Other iron deficiency anemias (8) Bacteremia: (9) Enterococcus faecalis infection: (10) Sepsis: Plan Sepsis complicated by Enterococcus faecalis bacteremia Source is acute complicated Enterococcus faecalis urinary tract infection Cultures reviewed Serial blood cultures Multiple antibiotic allergies noted Continue vancomycin, pharmacy to dose Follow-up echocardiogram results Follow-up sensitivities Chronic hypoxic respiratory failure Continue supplemental oxygen support Diastolic HFpEF without exacerbation Diuretics on hold, reassess need daily COPD without exacerbation Breathing treatments as needed Peripheral vascular disease Continue cilostazol Acute on chronic kidney disease Strict I's and O's Daily weights Renally dose meds Repeat labs tomorrow Atrial fibrillation, unspecified type Continue apixaban for stroke prophylaxis Hypokalemia Hypomagnesia Replace K and Mg History of lung cancer History of thyroid cancer status post thyroidectomy PDMP PDMP Reviewed: Not Reviewed Attestations 2 Medical Necessity Statement*: Patient requires ongoing hospitalization for IV antibiotics, serial cultures, serial labs, echocardiogram, telemetry, and supportive care. Coding Level of Care Code Acute Code for Chg Fwd Diagnoses Chronic diastolic heart failure I50.32 Persistent atrial fibrillation I48.19 Atrial fibrillation type: persistent (not longstanding) PVD (peripheral vascular disease) I73.9 Acquired hypothyroidism E03.9 Metabolic alkalosis E87.3 Dysuria R30.0 Iron deficiency anemia secondary to inadequate dietary iron intake D50.8 Anemia type: iron deficiency Iron deficiency anemia type: inadequate dietary iron intake Bacteremia R78.81 Enterococcus faecalis infection A49.8 Sepsis A41.9
[2025-01-25 22:30] LABS: Vancomycin Trough 11.5 ug/mL (10-15)
--- NOTE | 2025-01-25 23:30 | PC.NURSE ---
Telepharmacist notified of vanc trough level. Notified that there is an order that states pharmacy to dose Vancomycin.
[2025-01-26] VITALS (9 sets, daily range): BP systolic 106–120; BP diastolic 55–73; PULSE 70–110; RESP 15–23; TEMP 36.3–36.6; O2SAT 90–99
[2025-01-26] MEDS: VANCOMYCIN ADD-Vantage 1,000 MG in 0.9% NaCl ADD-Vantage 250 ML 250 MG IV (01:14)
[2025-01-26] MEDS: ipratropium-albuterol 3 mL Neb INHALATION ×4 (01:22→20:32)
[2025-01-26] MEDS: lanolin oint 7 gm 1 APPLIC TOPICAL (02:27)
[2025-01-26 04:58] LABS: Basophils % 0.1 %; Eosinophils # 0.1 10^3/uL (0.0-0.8); Eosinophils % 0.6 %; Lymphocytes # 0.4 10^3/uL (0.8-4.8); Lymphocytes % 4.2 %; Mean Corpuscular HGB Conc 28.2 g/dL (30-55); Mean Corpuscular Hemoglobin 23.2 pg (27-33); Mean Corpuscular Volume 82.4 fl (85-98); Monocytes # 0.6 10^3/uL (0.2-0.9); Monocytes % 5.9 %; Neutrophils # 9.32 10^3/uL (1.8-7.7); Neutrophils % 88.6 %; Nucleated Red Blood Cells % 0 %; Platelet Count 154 10^3/cmm (157-399); White Blood Count 10.51 10^3/uL (3.29-11.43)
[2025-01-26 05:28] LABS: Albumin Level 2.9 g/dL (3.5-5.2); Anion Gap 11.8 (5-19); Blood Urea Nitrogen 25 mg/dL (8-23); Calcium 8.1 mg/dL (8.5-10.5); Carbon Dioxide 32 mmol/L (22-29); Chloride 97 mmol/L (98-107); Glucose 139 mg/dL (65-115); Magnesium 1.8 mg/dL (1.7-2.3); Phosphorus 3.2 mg/dL (2.5-4.5); Potassium 3.8 mmol/L (3.5-5.1); Sodium 137 mmol/L (136-145)
[2025-01-26] MEDS: apixaban 5 mg Tablet 2.5 MG PO ×2 (08:17→16:37)
[2025-01-26] MEDS: metoprolol tartrate 25 mg Tablet PO ×2 (08:17→16:37)
[2025-01-26] MEDS: pantoprazole DR 40 mg Tablet PO ×2 (08:17→16:37)
[2025-01-26] MEDS: benzonatate 100 mg Capsule 200 MG PO (08:17)
[2025-01-26] MEDS: levothyroxine 50 mcg Tablet PO (08:17)
[2025-01-26] MEDS: buprenorphine-naloxone 4-1 mg Film 2 EACH SUBLINGUAL ×3 (08:17→22:12)
[2025-01-26] MEDS: calcitriol 0.25 mcg Capsule 0.5 MCG PO (08:17)
[2025-01-26] MEDS: guaiFENesin 600 mg Tablet 1200 MG PO (08:17)
[2025-01-26] MEDS: roflumilast 500 mcg Tablet PO (08:17)
[2025-01-26] MEDS: sennosides-docusate Tablet 1 TAB PO (08:17)
--- NOTE | 2025-01-26 11:16 | P.PN_ITS ---
Subjective 2 Subjective: Patient reports she feels terrible overall. Endorses generalized malaise and fatigue. We discussed culture results still positive. Repeat cultures ordered. We discussed echo findings with recommendation to proceed with EYAL. Patient wants to hold off citing risk of respiratory compromise. She will talk with her son before deciding. Discussed plan of care. Medications: Reviewed: Yes Vitals/I&O/Wt Last Vital Signs Temp 97.4 F L 01/26/25 08:03 Pulse 110 H 01/26/25 08:52 Resp 20 H 01/26/25 08:52 BP 110/58 01/26/25 08:03 Pulse Ox 93 01/26/25 08:52 O2 Del Method Nasal Cannula 01/26/25 08:52 O2 Flow Rate 3 01/26/25 08:52 01/25/25 01/26/25 01/26/25 22:59 06:59 14:59 Intake Total 240 / 768 730 / 1498 600 / 600 Balance 240 / 768 730 / 1498 600 / 600 Weight last 48 hrs Weight 47.355 kg Weight 48.308 kg Weight 45.359 kg Weight 43.091 kg Physical Exam 2 Narrative: General: Patient is awake. Frail-appearing. Head: Temporal wasting. Neck: No JVD. Cardiovascular: No gallops. No murmurs. Lungs: Bilateral rhonchi, conversational dyspnea, on nasal cannula. Skin: No jaundice. No rashes. Abdomen: Normal bowel sounds, abdomen soft and nontender. Extremities: No cyanosis or clubbing. Musculoskeletal: No swollen or erythematous joints. Neurological: Moves all 4 extremities. No myoclonus. Data 01/26/25 04:45 01/26/25 04:45 Micro: Microbiology 01/26/25 08:53 Blood Culture - Preliminary Blood SPECIMEN COLLECTED 01/26/25 08:44 Blood Culture - Preliminary Blood SPECIMEN COLLECTED 01/24/25 20:16 Urine Culture - Preliminary Urine Catheterized Strep species, gamma-hemolytic 01/25/25 10:03 Blood Culture - Preliminary Blood Enterococcus faecalis 01/24/25 21:19 Blood Culture - Preliminary Blood Enterococcus faecalis A&P Assessment and plan (1) Chronic diastolic heart failure: (2) Atrial fibrillation: Qualifiers: Atrial fibrillation type: persistent (not longstanding) Qualified Code(s): I48.19 - Other persistent atrial fibrillation (3) PVD (peripheral vascular disease): (4) Acquired hypothyroidism: (5) Metabolic alkalosis: (6) Dysuria: (7) Anemia: Qualifiers: Anemia type: iron deficiency Iron deficiency anemia type: inadequate dietary iron intake Qualified Code(s): D50.8 - Other iron deficiency anemias (8) Bacteremia: (9) Enterococcus faecalis infection: (10) Sepsis: Plan Sepsis complicated by Enterococcus faecalis bacteremia Source is acute complicated Enterococcus faecalis urinary tract infection Serial blood cultures until clearance Continue vancomycin, pharmacy to dose TTE w/ abnormal findings w/ echogenic structure in RA; discussed w/ Dr Ramirez Recommended EYAL, she will think about and speak with her son Chronic hypoxic respiratory failure Continue supplemental oxygen support Diastolic HFpEF without exacerbation Restart PRN bumex COPD without exacerbation Breathing treatments as needed Peripheral vascular disease Continue cilostazol Acute on chronic kidney disease Strict I's and O's Daily weights Renally dose meds Atrial fibrillation, unspecified type Continue apixaban for stroke prophylaxis Hypokalemia Hypomagnesia Replace K and Mg as needed History of lung cancer History of thyroid cancer status post thyroidectomy PDMP PDMP Reviewed: Not Reviewed Attestations 2 Medical Necessity Statement*: Patient requires ongoing hospitalization for IV antibiotics, serial cultures, serial labs, possibly eyal, telemetry, and supportive care. Coding Level of Care Code Acute Code for Chg Fwd Diagnoses Chronic diastolic heart failure I50.32 Persistent atrial fibrillation I48.19 Atrial fibrillation type: persistent (not longstanding) PVD (peripheral vascular disease) I73.9 Acquired hypothyroidism E03.9 Metabolic alkalosis E87.3 Dysuria R30.0 Iron deficiency anemia secondary to inadequate dietary iron intake D50.8 Anemia type: iron deficiency Iron deficiency anemia type: inadequate dietary iron intake Bacteremia R78.81 Enterococcus faecalis infection A49.8 Sepsis A41.9
[2025-01-27] VITALS (11 sets, daily range): BP systolic 94–155; BP diastolic 50–73; PULSE 82–103; RESP 18–24; TEMP 36.3–36.5; O2SAT 92–100
[2025-01-27] MEDS: VANCOMYCIN ADD-Vantage 750 MG in 0.9% NaCl ADD-Vantage 250 ML 250 MG IV (00:28)
[2025-01-27] MEDS: ipratropium-albuterol 3 mL Neb INHALATION ×4 (02:22→19:42)
[2025-01-27 05:08] LABS: Basophils % 0.1 %; Eosinophils # 0.1 10^3/uL (0.0-0.8); Eosinophils % 0.8 %; Hematocrit 27.9 % (36-47); Lymphocytes # 0.9 10^3/uL (0.8-4.8); Lymphocytes % 9.1 %; Mean Corpuscular HGB Conc 27.2 g/dL (30-55); Mean Corpuscular Hemoglobin 22.8 pg (27-33); Mean Corpuscular Volume 83.8 fl (85-98); Mean Platelet Volume 9.1 fL (7.4-10.4); Monocytes # 0.6 10^3/uL (0.2-0.9); Monocytes % 6.5 %; Neutrophils # 8.02 10^3/uL (1.8-7.7); Neutrophils % 82.8 %; Nucleated Red Blood Cells % 0 %; Platelet Count 131 10^3/cmm (157-399); Red Blood Count 3.33 10^6/uL (3.85-5.65); Red Cell Distribution Width 16.9 % (12.1-15.1); White Blood Count 9.69 10^3/uL (3.29-11.43)
[2025-01-27 05:28] LABS: Albumin Level 2.9 g/dL (3.5-5.2); Anion Gap 9.8 (5-19); Blood Urea Nitrogen 20 mg/dL (8-23); Calcium 8.7 mg/dL (8.5-10.5); Carbon Dioxide 33 mmol/L (22-29); Chloride 95 mmol/L (98-107); Glucose 150 mg/dL (65-115); Magnesium 1.6 mg/dL (1.7-2.3); Phosphorus 3.2 mg/dL (2.5-4.5); Potassium 3.8 mmol/L (3.5-5.1); Sodium 134 mmol/L (136-145)
[2025-01-27] MEDS: buprenorphine-naloxone 4-1 mg Film 2 EACH SUBLINGUAL ×3 (09:09→20:55)
[2025-01-27] MEDS: apixaban 5 mg Tablet 2.5 MG PO ×2 (09:09→18:39)
[2025-01-27] MEDS: calcitriol 0.25 mcg Capsule 0.5 MCG PO (09:09)
[2025-01-27] MEDS: metoprolol tartrate 25 mg Tablet PO ×2 (09:10→18:39)
[2025-01-27] MEDS: pantoprazole DR 40 mg Tablet PO ×2 (09:10→18:37)
[2025-01-27] MEDS: roflumilast 500 mcg Tablet PO (09:10)
[2025-01-27] MEDS: magnesium oxide 400 mg tablet PO (09:10)
[2025-01-27] MEDS: levothyroxine 50 mcg Tablet PO (09:10)
[2025-01-27] MEDS: bumetanide 1 mg Tablet PO ×2 (09:16→18:39)
[2025-01-27] MEDS: benzonatate 100 mg Capsule 200 MG PO ×2 (09:24→18:39)
[2025-01-27] MEDS: guaiFENesin 600 mg Tablet 1200 MG PO (09:24)
[2025-01-27] MEDS: predniSONE 20 mg Tablet 40 MG PO (10:56)
--- NOTE | 2025-01-27 10:59 | P.PN_ITS ---
Subjective 2 Subjective: Patient reports that her breathing is getting worse. She feels tired and more short of breath this morning as compared to prior days. She also notes severe swelling of her lower extremities, worse in her thighs rather than lower extremities. She notes that she takes her Bumex twice daily every day at home. She is agreeable to reinitiating the Bumex. Home list does show this as needed but it seems she takes it scheduled. She is leaning towards not proceeding with a transesophageal echocardiogram due to her underlying respiratory disease. Her sons going to visit some point today but she is not sure when. She is can further discuss it with him. Given her reservations about procedures and her respiratory status, did confirm code and intubation status. She does confirm that she wants to remain full code without limitations of care. Medications: Reviewed: Yes Vitals/I&O/Wt Last Vital Signs Temp 97.4 F L 01/27/25 08:00 Pulse 99 01/27/25 08:59 Resp 20 H 01/27/25 08:50 BP 94/50 01/27/25 08:00 Pulse Ox 100 01/27/25 08:50 O2 Del Method Nasal Cannula 01/27/25 08:50 O2 Flow Rate 3 01/27/25 09:01 01/26/25 01/27/25 01/27/25 22:59 06:59 14:59 Intake Total 240 / 1080 250 / 1330 500 / 500 Output Total 400 / 400 Balance 240 / 1080 250 / 1330 100 / 100 Weight last 48 hrs Weight 47.99 kg Weight 47.355 kg Physical Exam 2 Narrative: General: Patient is awake. Frail-appearing. Very pleasant. Conversational dyspnea. Head: Temporal wasting. Neck: No JVD. Cardiovascular: No gallops. No murmurs. 2+ pitting edema bilateral lower extremities extending up to thighs. Lungs: Poor air movement overall. Tachypneic with talking. Bilateral rhonchi, conversational dyspnea, on nasal cannula. Skin: No jaundice. No rashes. Abdomen: Normal bowel sounds, abdomen soft and nontender. Extremities: No cyanosis or clubbing. Musculoskeletal: No swollen or erythematous joints. Neurological: Moves all 4 extremities. No myoclonus. Data 01/27/25 03:58 01/27/25 03:58 Micro: Microbiology 01/26/25 08:53 Blood Culture - Preliminary Blood NEGATIVE TO DATE 01/26/25 08:44 Blood Culture - Preliminary Blood NEGATIVE TO DATE 01/25/25 10:03 Blood Culture - Preliminary Blood Enterococcus faecalis 01/24/25 21:19 Blood Culture - Preliminary Blood Enterococcus faecalis 01/24/25 20:16 Urine Culture - Preliminary Urine Catheterized Strep species, gamma-hemolytic A&P Assessment and plan (1) Chronic diastolic heart failure: (2) Atrial fibrillation: Qualifiers: Atrial fibrillation type: persistent (not longstanding) Qualified Code(s): I48.19 - Other persistent atrial fibrillation (3) PVD (peripheral vascular disease): (4) Acquired hypothyroidism: (5) Metabolic alkalosis: (6) Dysuria: (7) Anemia: Qualifiers: Anemia type: iron deficiency Iron deficiency anemia type: inadequate dietary iron intake Qualified Code(s): D50.8 - Other iron deficiency anemias (8) Bacteremia: (9) Enterococcus faecalis infection: (10) Sepsis: Plan Sepsis complicated by Enterococcus faecalis bacteremia Source is acute complicated Enterococcus faecalis urinary tract infection Serial blood cultures until clearance, cultures from yesterday remain negative, continue to follow Continue vancomycin, pharmacy to dose TTE w/ abnormal findings w/ echogenic structure in RA EYAL being considered, patient wants to talk to her son, she has reservations about proceeding May benefit from infectious disease consult when available Chronic hypoxic respiratory failure Continue supplemental oxygen support Acute on chronic diastolic HFpEF with exacerbation She is volume overloaded with worsening respiratory symptoms Start back home Bumex twice daily COPD without exacerbation Breathing treatments as needed Symptoms seem to be worsening, will start oral steroids monitor response Peripheral vascular disease Continue cilostazol Acute on chronic kidney disease Strict I's and O's Daily weights Renally dose meds Atrial fibrillation, unspecified type Continue apixaban for stroke prophylaxis Hypokalemia Hypomagnesia Replace K and Mg as needed History of lung cancer History of thyroid cancer status post thyroidectomy PDMP PDMP Reviewed: Not Reviewed Attestations 2 Medical Necessity Statement*: Patient requires ongoing hospitalization for IV antibiotics, serial cultures, serial labs, possibly eyal, telemetry, and supportive care. Coding Level of Care Code Acute Code for Chg Fwd Diagnoses Chronic diastolic heart failure I50.32 Persistent atrial fibrillation I48.19 Atrial fibrillation type: persistent (not longstanding) PVD (peripheral vascular disease) I73.9 Acquired hypothyroidism E03.9 Metabolic alkalosis E87.3 Dysuria R30.0 Iron deficiency anemia secondary to inadequate dietary iron intake D50.8 Anemia type: iron deficiency Iron deficiency anemia type: inadequate dietary iron intake Bacteremia R78.81 Enterococcus faecalis infection A49.8 Sepsis A41.9
[2025-01-28] VITALS (11 sets, daily range): BP systolic 117–131; BP diastolic 65–74; PULSE 84–100; RESP 15–20; TEMP 36.4–36.5; O2SAT 94–99
[2025-01-28] MEDS: VANCOMYCIN ADD-Vantage 750 MG in 0.9% NaCl ADD-Vantage 250 ML 250 MG IV (01:33)
[2025-01-28] MEDS: ipratropium-albuterol 3 mL Neb INHALATION ×4 (02:39→21:23)
[2025-01-28 04:23] LABS: Albumin Level 2.8 g/dL (3.5-5.2); Anion Gap 9.3 (5-19); Blood Urea Nitrogen 19 mg/dL (8-23); Calcium 8.4 mg/dL (8.5-10.5); Carbon Dioxide 35 mmol/L (22-29); Chloride 96 mmol/L (98-107); Glucose 114 mg/dL (65-115); Magnesium 1.5 mg/dL (1.7-2.3); Phosphorus 3.5 mg/dL (2.5-4.5); Potassium 4.3 mmol/L (3.5-5.1); Sodium 136 mmol/L (136-145)
[2025-01-28] MEDS: bumetanide 1 mg Tablet PO (06:27)
[2025-01-28] MEDS: magnesium oxide 400 mg tablet PO (10:47)
[2025-01-28] MEDS: levothyroxine 50 mcg Tablet PO (10:47)
[2025-01-28] MEDS: calcitriol 0.25 mcg Capsule 0.5 MCG PO (10:48)
[2025-01-28] MEDS: pantoprazole DR 40 mg Tablet PO ×2 (10:48→18:18)
--- NOTE | 2025-01-28 10:48 | P.PN_ITS ---
Subjective 2 Subjective: Patient reports her breathing remains very poor. She does note persistent lower extremity edema, no better than yesterday. She had been restarted on her oral Bumex. Given lack of response, discussed transitioning to IV Bumex which she agrees with due to volume status. Her son is bedside and very supportive. Discussed her infection and current plan of care. She spoke with him regarding the transesophageal echocardiogram which we had been discussing the past few days. We reviewed the indication for ASPEN given abnormal tte and bacteremia. We also reviewed the patient's concern regarding underlying respiratory status and potential compromise with sedation. Patient would likely not be a surgical candidate if she has infective endocarditis. Discussed that it may not significantly change treatment other than duration of antibiotics. Discussed she may benefit from an infectious disease consultation this week which will ultimately be determined by the oncoming provider tomorrow. Medications: Reviewed: Yes Vitals/I&O/Wt Last Vital Signs Temp 97.5 F L 01/28/25 04:00 Pulse 99 01/28/25 09:05 Resp 18 01/28/25 09:05 BP 119/70 01/28/25 07:34 Pulse Ox 97 01/28/25 09:05 O2 Del Method Nasal Cannula 01/28/25 09:05 O2 Flow Rate 3 01/28/25 09:05 01/27/25 01/28/25 01/28/25 22:59 06:59 14:59 Intake Total 240 / 980 250 / 1230 Output Total 300 / 300 Balance 240 / 580 250 / 830 -300 / -300 Weight last 48 hrs Weight 50.167 kg Weight 47.99 kg Physical Exam 2 Narrative: General: Patient is awake. Frail-appearing. Very pleasant. Shortness of breath persist, similar to yesterday. Head: Temporal wasting. Neck: No JVD. Cardiovascular: No gallops. No murmurs. 2+ pitting edema bilateral lower extremities extending up to thighs, similar to yesterday's exam. Lungs: Poor air movement overall. Tachypneic with talking. Bilateral rhonchi, conversational dyspnea, on nasal cannula. Skin: No jaundice. No rashes. Abdomen: Normal bowel sounds, abdomen soft and nontender. Extremities: No cyanosis or clubbing. Musculoskeletal: No swollen or erythematous joints. Neurological: Moves all 4 extremities. No myoclonus. Data 01/27/25 03:58 01/28/25 02:20 Micro: Microbiology 01/26/25 08:53 Blood Culture - Preliminary Blood Enterococcus faecalis 01/26/25 08:44 Blood Culture - Preliminary Blood Enterococcus faecalis 01/27/25 18:36 Blood Culture - Preliminary Blood SPECIMEN COLLECTED 01/27/25 18:36 Blood Culture - Preliminary Blood SPECIMEN COLLECTED 01/24/25 20:16 Urine Culture - Final Urine Catheterized Enterococcus faecalis 01/25/25 10:03 Blood Culture - Final Blood Enterococcus faecalis 01/24/25 21:19 Blood Culture - Final Blood Enterococcus faecalis A&P Assessment and plan (1) Chronic diastolic heart failure: (2) Atrial fibrillation: Qualifiers: Atrial fibrillation type: persistent (not longstanding) Qualified Code(s): I48.19 - Other persistent atrial fibrillation (3) PVD (peripheral vascular disease): (4) Acquired hypothyroidism: (5) Metabolic alkalosis: (6) Dysuria: (7) Anemia: Qualifiers: Anemia type: iron deficiency Iron deficiency anemia type: inadequate dietary iron intake Qualified Code(s): D50.8 - Other iron deficiency anemias (8) Bacteremia: (9) Enterococcus faecalis infection: (10) Sepsis: Plan Sepsis complicated by Enterococcus faecalis bacteremia -Source is acute complicated Enterococcus faecalis urinary tract infection -Serial blood cultures until clearance -Continue vancomycin, pharmacy to dose -TTE w/ abnormal findings w/ echogenic structure in RA -ASPEN has been discussed with patient/family, they would prefer not to proceed with this given high risk for respiratory decompensation -Recommend considering ID consult when available this week Chronic hypoxic respiratory failure -Continue supplemental oxygen support Acute on chronic diastolic HFpEF with exacerbation -She remains volume overloaded despite reinitiation of home Bumex -Escalate IV Bumex dosing -Strict I's and O's -Daily assessment of volume status COPD with exacerbation -Continue prednisone -Continue nebulized treatments Peripheral vascular disease -Continue cilostazol Acute on chronic kidney disease -MARTIN resolved, renal function at baseline; continue to monitor -Strict I's and O's -Daily weights -Renally dose meds Atrial fibrillation, unspecified type -Continue apixaban for stroke prophylaxis Hypokalemia Hypomagnesia -Replace K and Mg as needed History of lung cancer History of thyroid cancer status post thyroidectomy PDMP PDMP Reviewed: Not Reviewed Attestations 2 Medical Necessity Statement*: Patient requires ongoing hospitalization for IV antibiotics, serial cultures, serial labs, telemetry, and supportive care. Coding Level of Care Code Acute Code for Chg Fwd Diagnoses Chronic diastolic heart failure I50.32 Persistent atrial fibrillation I48.19 Atrial fibrillation type: persistent (not longstanding) PVD (peripheral vascular disease) I73.9 Acquired hypothyroidism E03.9 Metabolic alkalosis E87.3 Dysuria R30.0 Iron deficiency anemia secondary to inadequate dietary iron intake D50.8 Anemia type: iron deficiency Iron deficiency anemia type: inadequate dietary iron intake Bacteremia R78.81 Enterococcus faecalis infection A49.8 Sepsis A41.9
[2025-01-28] MEDS: roflumilast 500 mcg Tablet PO (10:49)
[2025-01-28] MEDS: apixaban 5 mg Tablet 2.5 MG PO ×2 (10:49→18:18)
[2025-01-28] MEDS: metoprolol tartrate 25 mg Tablet PO ×2 (10:49→18:18)
[2025-01-28] MEDS: buprenorphine-naloxone 4-1 mg Film 2 EACH SUBLINGUAL ×3 (10:49→21:38)
[2025-01-28] MEDS: bumetanide 0.25 mg/mL SDV 4 mL 1 MG IVP ×2 (10:50→18:18)
[2025-01-28] MEDS: predniSONE 20 mg Tablet 40 MG PO (10:50)
[2025-01-29] VITALS (18 sets, daily range): BP systolic 115–163; BP diastolic 56–76; PULSE 87–106; RESP 16–22; TEMP 36–36.9; O2SAT 92–100; BMI 21.3
[2025-01-29 00:41] LABS: Albumin Level 3.1 g/dL (3.5-5.2); Anion Gap 11.3 (5-19); Blood Urea Nitrogen 23 mg/dL (8-23); Calcium 8.3 mg/dL (8.5-10.5); Carbon Dioxide 35 mmol/L (22-29); Chloride 93 mmol/L (98-107); Glucose 195 mg/dL (65-115); Magnesium 1.4 mg/dL (1.7-2.3); Phosphorus 3.2 mg/dL (2.5-4.5); Potassium 4.3 mmol/L (3.5-5.1); Sodium 135 mmol/L (136-145); Vancomycin Trough 19.5 ug/mL (10-15)
[2025-01-29 00:54] LABS: Hematocrit 26.7 % (36-47); Lymphocytes # 0.5 10^3/uL (0.8-4.8); Lymphocytes % 4.6 %; Mean Corpuscular HGB Conc 27.7 g/dL (30-55); Mean Corpuscular Hemoglobin 22.8 pg (27-33); Mean Corpuscular Volume 82.2 fl (85-98); Mean Platelet Volume 9.4 fL (7.4-10.4); Monocytes # 0.4 10^3/uL (0.2-0.9); Monocytes % 3.9 %; Neutrophils # 9.54 10^3/uL (1.8-7.7); Neutrophils % 90.4 %; Nucleated Red Blood Cells % 0 %; Platelet Count 148 10^3/cmm (157-399); Red Blood Count 3.25 10^6/uL (3.85-5.65); Red Cell Distribution Width 17.1 % (12.1-15.1); White Blood Count 10.56 10^3/uL (3.29-11.43)
[2025-01-29] MEDS: VANCOMYCIN ADD-Vantage 750 MG in 0.9% NaCl ADD-Vantage 250 ML 250 MG IV (01:25)
[2025-01-29] MEDS: ipratropium-albuterol 3 mL Neb INHALATION ×4 (02:24→19:54)
[2025-01-29] MEDS: bumetanide 0.25 mg/mL SDV 4 mL 1 MG IVP ×2 (06:04→20:05)
[2025-01-29] MEDS: metoprolol tartrate 25 mg Tablet PO ×2 (10:07→17:30)
[2025-01-29] MEDS: magnesium oxide 400 mg tablet PO (10:07)
[2025-01-29] MEDS: levothyroxine 50 mcg Tablet PO (10:07)
[2025-01-29] MEDS: roflumilast 500 mcg Tablet PO (10:07)
[2025-01-29] MEDS: calcitriol 0.25 mcg Capsule 0.5 MCG PO (10:07)
[2025-01-29] MEDS: buprenorphine-naloxone 4-1 mg Film 2 EACH SUBLINGUAL ×3 (10:08→21:21)
[2025-01-29] MEDS: apixaban 5 mg Tablet 2.5 MG PO (10:08)
[2025-01-29] MEDS: pantoprazole DR 40 mg Tablet PO ×2 (10:08→17:30)
[2025-01-29] MEDS: predniSONE 20 mg Tablet 40 MG PO (10:08)
[2025-01-29] MEDS: sennosides-docusate Tablet 1 TAB PO (10:08)
--- NOTE | 2025-01-29 14:07 | P.PN_ITS ---
Subjective 2 Subjective: Hospital course, labs appreciated. On examination patient sitting at edge of the bed. Complaining of increased swelling in her legs. States her breathing is slightly improving. Denies any nausea, vomiting, headache. Medications: Reviewed: Yes Vitals/I&O/Wt Last Vital Signs Temp 97.5 F L 01/29/25 11:46 Pulse 91 01/29/25 13:40 Resp 22 H 01/29/25 13:40 BP 163/57 01/29/25 11:46 Pulse Ox 98 01/29/25 13:40 O2 Del Method Nasal Cannula 01/29/25 13:40 O2 Flow Rate 3 01/29/25 13:40 01/28/25 01/29/25 01/29/25 22:59 06:59 14:59 Intake Total 250 / 250 240 / 240 Output Total 1450 / 2550 175 / 2725 Balance -1450 / -2550 75 / -2475 240 / 240 Weight last 48 hrs Weight 49.612 kg Weight 50.167 kg Physical Exam 2 Narrative: General: Patient is awake. Frail-appearing. Very pleasant. Head: Temporal wasting. Neck: No JVD. Cardiovascular: No gallops. Pansystolic murmur at apex radiating to anterior axillary line 2/6, early diastolic murmur at aortic region radiating to apex. 2+ pitting edema bilateral lower extremities extending up to thighs, Lungs: Poor air movement overall. Tachypneic with talking. Bilateral rhonchi, conversational dyspnea, on nasal cannula. Skin: No jaundice. No rashes. Abdomen: Normal bowel sounds, abdomen soft and nontender. Extremities: No cyanosis or clubbing. Musculoskeletal: No swollen or erythematous joints. Neurological: Moves all 4 extremities. No myoclonus. Urinary Catheter Management: Mayer Latex: Cath Placed During This Visit: yes Reason for Continuing Indwelling Catheter: Other Urinary Catheter Date of Insertion: 01/28/25 Urinary Catheter Time of Insertion: 11:46 Data 01/29/25 00:15 01/29/25 00:15 Micro: Microbiology 01/27/25 18:36 Blood Culture - Preliminary Blood NEGATIVE TO DATE 01/27/25 18:36 Blood Culture - Preliminary Blood NEGATIVE TO DATE 01/26/25 08:53 Blood Culture - Preliminary Blood Enterococcus faecalis 01/26/25 08:44 Blood Culture - Preliminary Blood Enterococcus faecalis A&P Assessment and plan (1) Enterococcus faecalis infection: (2) Bacteremia: (3) Chronic diastolic heart failure: (4) Atrial fibrillation: Qualifiers: Atrial fibrillation type: persistent (not longstanding) Qualified Code(s): I48.19 - Other persistent atrial fibrillation (5) PVD (peripheral vascular disease): (6) Acquired hypothyroidism: (7) Metabolic alkalosis: (8) Dysuria: (9) Anemia: Qualifiers: Anemia type: iron deficiency Iron deficiency anemia type: inadequate dietary iron intake Qualified Code(s): D50.8 - Other iron deficiency anemias (10) Sepsis: (11) Infection due to Port-A-Cath: (12) Port-A-Cath in place: (13) Presence of permanent cardiac pacemaker: Plan Sepsis complicated by Enterococcus faecalis bacteremia: Persistent Enterococcus faecalis bacteremia. Repeat blood cultures from 01/27 so far negative. Appreciate echocardiogram results. Concern for echogenic structure in right atrium with proximity to tricuspid valve. Patient does have pacemaker. Cannot rule out pacemaker wire infection. Also has port in place. Cannot rule out port infection. Patient would benefit from port removal and ASPEN. Patient reluctant for the both as in the past she has been told there is a high risk of mortality for her with procedure. We discussed that she is chronically on 3 L and currently doing well on 3 L saturating more than 95%, hemodynamically has been stable with EF of 55 to 60%. She is cleared for port removal and ASPEN with low to moderate risk for a low risk procedure. She would like to discuss further with her son before making a decision. Will consult ID. Follow-up repeat cultures. Continue with IV vancomycin for now. Monitor trough levels between 15-20. Given need for port removal for now we will stop the Eliquis and switch to full dose Lovenox 1 mg/kg body weight Q12 hourly. Chronic hypoxic respiratory failure and currently on 3L oxygen supplementation. In setting of diastolic congestive heart failure. Continue supplemental oxygen support Acute on chronic diastolic HFpEF with exacerbation Appreciate echocardiogram. Continue with IV Bumex 1 mg Q12 hourly. Fluid restriction to less than 1500 cc. Strict input charting, daily weights. COPD with exacerbation -Continue prednisone 40 mg oral daily. Will plan to continue for 5 days overall. -Continue nebulized treatments. Add Pulmicort. Anemia: Chronic. Hemoglobin around 7.3. Denies any melena. Patient has a history of peripheral vascular disease, congestive heart failure target hemoglobin over 8. Will transfuse 1 unit of PRBC. Continue with Protonix twice daily. Will give 1 mg of IV Bumex along transfusion. Peripheral vascular disease -Continue cilostazol Acute on chronic kidney disease -MARTIN resolved, renal function at baseline; continue to monitor -Strict I's and O's -Daily weights -Renally dose meds Atrial fibrillation, unspecified type -Switch from apixaban 2.5 mg twice daily to Lovenox 1 mg/kg body weight Q12 hourly given concerns for port removal. Hypokalemia Hypomagnesia -Replace K and Mg as needed History of lung cancer History of thyroid cancer status post thyroidectomy Full code Cardiac diet Fluid restriction Protonix OPD prophylaxis Full dose Lovenox will be sufficient for DVT prophylaxis Care discussed in detail with patient and patient's son Ye Lombardi over the phone. Discussed the need for port removal and ASPEN given concerns of persistent Enterococcus bacteremia, echogenic mass on RA and near tricuspid valve. They are both agreeable for the procedure. All the questions were answered. PDMP PDMP Reviewed: Not Reviewed Attestations 2 Medical Necessity Statement*: Requires further hospitalization for management of persistent Enterococcus faecalis bacteremia, infected port with concerns for infective endocarditis as patient is awaiting port removal and ASPEN, outpatient IV antibiotics, congestive heart failure Diagnoses Enterococcus faecalis infection A49.8 Bacteremia R78.81 Chronic diastolic heart failure I50.32 Persistent atrial fibrillation I48.19 Atrial fibrillation type: persistent (not longstanding) PVD (peripheral vascular disease) I73.9 Acquired hypothyroidism E03.9 Metabolic alkalosis E87.3 Dysuria R30.0 Iron deficiency anemia secondary to inadequate dietary iron intake D50.8 Anemia type: iron deficiency Iron deficiency anemia type: inadequate dietary iron intake Sepsis A41.9 Infection due to Port-A-Cath T80.219A Port-A-Cath in place Z95.828 Presence of permanent cardiac pacemaker Z95.0
--- NOTE | 2025-01-29 16:48 | PM.CONSULT ---
Providers/Reason For Consult Consulting Physician/Specialty*: Yoana Gross MD/ Infectious Disease Reason for Consult*: Endocarditis Attending Physician: Chet Bowman MD Primary Care Provider: Roger Reynoso DO History of Present Illness History of Present Illness Sakina Lombardi is a 74 year old female COPD, CAD, cor pulmonale, smoking addiction, hx of carotid stenosis, dyslipidemia, PPM for syncope and bradycardia who had been experiencing dysuria and had presented to the emergency room on January 23 initially complaining of chills rigors dysuria and difficulty breathing. She was diagnosed with a COPD exacerbation. She was called back into the emergency room after her blood cultures returned positive for Enterococcus faecalis. She reports a past medical history significant for multiple cancers. most recently she was diagnosed with lung cancer in 2021 for which she underwent radiation which was complicated by radiation kent over her back. She has to follow-up with wound care clinic and her wound is finally improved by October 2024. She tells me she was due to start chemotherapy after the resolution of her radiation kent, however has not met with oncology yet to further discuss this. Also reports a past medical history of laryngeal cancer, status post laryngeal surgery which has resulted in a persistent hoarse voice. Reports a history of thyroid cancer additionally in the past. She has a right breast mass which for biopsy from June 2024 was noted to be benign adipose connective tissue with focal fibrous tissue, likely fibroadenoma. No malignancy was identified. Patient was admitted to the hospital in view of positive blood cultures with Enterococcus faecalis. Review of chart shows that patient has had persistently positive blood cultures between January 23, January 24, January 26. Most recent culture from January 27, 2025 5 so far negative. Her urine culture has additionally shown positive urine culture for Enterococcus faecalis. Patient has a current port in place over the right chest wall which was placed 3 years ago. She reports that a previous port had been removed 3 years ago. She denies any overt infection but does recall having had a PICC line and 6 weeks of IV antibiotics afterwards. She does not recall the name of the antibiotic but states it was given 3 times a day.She has been on treatment with IV vancomycin at this time due to multiple reported drug allergies. Echocardiogram obtained on January 24, 2025 showed Echogenic structure seen in right atrium and proximity to tricuspid valve, new since echocardiogram from 2022. Review of Systems General: Reports: 10 or more systems reviewed and unremarkable except in HPI and below Const: Denies: fever(s), chills or body aches Eyes: Denies: change in vision, blurry vision or photophobia ENMT: Reports: hoarseness; Denies: throat pain, enlarged tonsils, odynophagia or nasal congestion Card: Denies: chest pain, palpitations, irregular heart rhythm, edema, swelling of feet/ankles, lightheadedness, pre-syncope, dyspnea on exertion or orthopnea Resp: Denies: dyspnea, productive cough, non-productive cough, wheezing, stridor, pain on inspiration, change in phlegm color, hemoptysis or chest congestion GI: Denies: abdominal pain, nausea, vomiting, hematemesis, coffee ground emesis, dysphagia, heartburn, diarrhea, constipation, GI cramping, change in stool character, hematochezia or melena : Denies: flank pain, difficulty voiding, dysuria, urinary frequency, urinary urgency, urinary hesitancy or hematuria Musc: Denies: neck pain, back pain, extremity pain, joint swelling, joint warmth or deformity Neuro: Denies: headache(s), numbness in extremities, weakness in extremities, sensory changes, difficulty walking, frequent falls, dizziness, vertigo, behavioral changes, Slurred speech present or seizure-like activity Psych: Denies: anxiety, depression, suicidal ideation or homicidal ideation Endo: Denies: polyuria, polydipsia, tired all the time, cold intolerance or hot flashes Edgar/Lymph: Denies: easy bruising or easy bleeding Medications/Allergies Home Medications ?Medication ?Instructions ?Recorded ?Confirmed ?Last Taken ?Type nitroglycerin 0.4 mg sublingual 0.4 mg sublingual Q5M PRN Chest 07/27/23 01/25/25 11/12/23 History tablet (Nitrostat) Pain magnesium oxide 400 mg PO DAILY 11/12/23 01/25/25 01/24/25 History albuterol sulfate 90 mcg/actuation 2 puff inhalation Q4H PRN 12/16/23 01/25/25 Unknown Rx aerosol inhaler shortness of breath or wheezing #6.7 grams buprenorphine 8 mg-naloxone 2 mg 1 film buccal TID 04/24/24 01/25/25 01/24/25 History sublingual film (Suboxone) potassium chloride 20 mEq/15 mL 15 meq (11.25 mL) PO BID #450 mL 07/20/24 01/25/25 01/24/25 Rx oral liquid chlorpheniramine 4 5 ml PO Q6H PRN cold symptoms #160 08/03/24 01/25/25 Unknown Rx mg-phenylephrine 10 mg-DM 15 mg/5 mL mL oral liquid (Ed A-Hist DM) nicotine See Rx Instructions transdermal 08/08/24 01/25/25 Unknown Rx 21mg/24hr-14mg/24hr-7mg/24hr daily .COMPLEX #56 patches transderm patches,sequentl loratadine 10 mg tablet 10 mg PO DAILY #30 tabs 08/17/24 01/25/25 01/24/25 Rx apixaban 2.5 mg tablet (Eliquis) 2.5 mg PO BID #60 tabs 08/28/24 01/25/25 01/24/25 Rx roflumilast 500 mcg tablet 500 mcg PO DAILY #30 tabs 10/03/24 01/25/25 Unknown Rx diphenoxylate-atropine 2.5 1 tab PO BID PRN diarrhea #30 tabs 10/10/24 01/25/25 Unknown Rx mg-0.025 mg tablet (Lomotil) fluticasone propionate 50 2 spray intranasal DAILY sinus 11/02/24 01/25/25 Unknown Rx mcg/actuation nasal congestion #16 grams spray,suspension cilostazol 50 mg tablet 50 mg PO BID #90 tabs 11/07/24 01/25/25 Unknown Rx levothyroxine 50 mcg tablet 50 mcg PO DAILY thyroid #90 tabs 11/16/24 01/25/25 01/24/25 Rx montelukast 4 mg chewable tablet 8 mg (2 x 4 mg) PO DAILY #60 tabs 11/24/24 01/25/25 01/24/25 Rx pantoprazole 40 mg tablet,delayed 40 mg PO BID #90 tabs 11/28/24 01/25/25 01/24/25 Rx release metoprolol tartrate 25 mg tablet 25 mg PO BID #180 tabs 12/27/24 01/25/25 01/24/25 Rx mupirocin 2 % topical ointment 1 applic topical BID nares #22 01/04/25 01/25/25 Unknown Rx grams prednisone 20 mg tablet 40 mg (2 x 20 mg) PO DAILY 5 days 01/23/25 01/25/25 01/24/25 Rx #10 tabs atorvastatin 20 mg tablet 20 mg PO DAILY 01/25/25 01/25/25 01/24/25 History baclofen 10 mg tablet 10 mg PO Q8H PRN muscle spasms 01/25/25 01/25/25 Unknown History bumetanide 1 mg tablet 1 mg PO BID PRN Edema 01/25/25 01/25/25 01/24/25 History calcitriol 0.5 mcg capsule 0.5 mcg PO DAILY 01/25/25 01/25/25 01/24/25 History ferrous sulfate 325 mg (65 mg 325 mg PO DAILY microcytic anemia 01/29/25 Unknown Rx iron) tablet,delayed release #30 tabs Allergies Allergy/AdvReac Type Severity Reaction Status Date / Time amiodarone Allergy Severe ADR-Confusi Verified 01/24/25 19:21 on 2-octyl cyanoacrylate Allergy ALGY-Rash Verified 01/24/25 19:21 adhesive tape Allergy ALGY-Rash Verified 01/24/25 19:21 amitriptyline Allergy ALGY-Hives Verified 01/24/25 19:21 amoxicillin Allergy ALGY-Hives Verified 01/24/25 19:21 cefaclor (From Ceclor) Allergy ALGY-Difficulty Verified 01/24/25 19:21 Breathing ciprofloxacin (From Cipro) Allergy ALGY-Difficulty Verified 01/24/25 19:21 Breathing gabapentin Allergy ALGY-Hives Verified 01/24/25 19:21 ibuprofen Allergy ALGY-Hives Verified 01/24/25 19:21 metronidazole (From Flagyl) Allergy ALGY-Hives Verified 01/24/25 19:21 Penicillins Allergy ALGY-Hives Verified 01/24/25 19:21 Sulfa (Sulfonamide Allergy ALGY-Hives Verified 01/24/25 19:21 Antibiotics) sulfamethoxazole (From Allergy ALGY-Difficulty Verified 01/24/25 19:21 Bactrim) Breathing tetracycline Allergy ALGY-Hives Verified 01/24/25 19:21 trimethoprim Allergy ALGY-Hives Verified 01/24/25 19:21 Current Medications Generic Name Dose Route Start Last Admin Trade Name Freq PRN Reason Stop Dose Admin Albuterol/Ipratropium 3 ml 01/25/25 08:00 01/29/25 13:40 Ipratropium-Albuterol 3 Ml Neb INHALATION 3 ml Q6H.RESP ALEXA Administration Benzonatate 200 mg 01/25/25 11:22 01/27/25 18:39 Benzonatate 100 Mg Capsule PO 200 mg TID PRN Administration COUGH Bumetanide 1 mg 01/28/25 09:16 01/29/25 06:04 Bumetanide 0.25 Mg/Ml Sdv 4 Ml IVP 1 mg BIDAC ALEXA Administration Buprenorphine/Naloxone 2 each 01/24/25 21:00 01/29/25 15:44 Buprenorphine-Naloxone 4-1 Mg Film SUBLINGUAL 2 each TID ALEXA Administration Calcitriol 0.5 mcg 01/25/25 09:00 01/29/25 10:07 Calcitriol 0.25 Mcg Capsule PO 0.5 mcg DAILY ALEXA Administration Guaifenesin 1,200 mg 01/25/25 11:22 01/27/25 09:24 Guaifenesin 600 Mg Tablet PO 1,200 mg BID PRN Administration congestion Vancomycin HCl 750 mg/ Sodium 250 mls @ 250 mls/hr 01/27/25 01:00 01/29/25 03:03 Chloride IV Infused Q24H ALEXA Infusion Lanolin 1 applic 01/25/25 20:33 01/26/25 02:27 Lanolin Oint 7 Gm TOPICAL 1 applic PRN PRN Administration DRYNESS Levothyroxine Sodium 50 mcg 01/25/25 09:00 01/29/25 10:07 Levothyroxine 50 Mcg Tablet PO 50 mcg DAILY ALEXA Administration Magnesium Oxide 400 mg 01/27/25 09:00 01/29/25 10:07 Magnesium Oxide 400 Mg Tablet PO 400 mg DAILY ALEXA Administration Metoprolol Tartrate 25 mg 01/25/25 09:00 01/29/25 10:07 Metoprolol Tartrate 25 Mg Tablet PO 25 mg BID ALEXA Administration Pantoprazole Sodium 40 mg 01/25/25 09:00 01/29/25 10:[address] 40 Mg Tablet PO 40 mg BID ALEXA Administration Prednisone 40 mg 01/27/25 09:25 01/29/25 10:08 Prednisone 20 Mg Tablet PO 40 mg DAILY ALEXA Administration Roflumilast 500 mcg 01/25/25 09:00 01/29/25 10:07 Roflumilast 500 Mcg Tablet PO 500 mcg DAILY ALEXA Administration Senna/Docusate Sodium 1 tab 01/25/25 09:00 01/29/25 10:08 Sennosides-Docusate Tablet PO 1 tab DAILY ALEXA Administration PFSH Acute PFSH: Medical History Tobacco dependence Weakness Passed out Syncope Localized swelling of both lower legs Lung nodule Skin lesions Dyslipidemia (high LDL; low HDL) Acute exacerbation of chronic obstructive pulmonary disease Lump of right breast Lung cancer right lower lobe Left shoulder pain Avulsion fracture of left talus Skin tear of right upper arm without complication Orthopnea Sinus node dysfunction Sinus pause Bradycardia Orthostatic hypotension Hypovitaminosis D Seizure-like activity Syncopal episodes Nicotine dependence, cigarettes, with unspecified nicotine-induced disorders Sacral decubitus ulcer Chronic rhinosinusitis Infected epidermoid cyst Fall Cor pulmonale Cor pulmonale Leg pain, left Nicotine addiction Chronic respiratory failure with hypoxia Aortic cusp regurgitation Actinic keratosis due to exposure to sunlight Closed intertrochanteric fracture of right hip Smoking addiction Chronic pain Thyroid cancer SOB (shortness of breath) History of COPD CVA (cerebral vascular accident) Benign essential hypertension CAD (coronary artery disease) Hx of carotid stenosis Leg pain, medial Neck strain COPD (chronic obstructive pulmonary disease) Plantar porokeratosis, acquired Surgical History Status post cardiac pacemaker procedure History of bronchoscopy History of hip surgery Hx of hysterectomy History of bilateral carpal tunnel release History of lumpectomy History of rectal surgery History of ankle surgery Status post open reduction and internal fixation (ORIF) of fracture H/O thyroidectomy S/P hardware removal Spine History of back surgery Port-A-Cath in place Family History Brother Leukemia Diabetes Lung disease Mother Anesthesia complication CAD (coronary artery disease) Father Bleeding disorder Clotting disorder CAD (coronary artery disease) Cancer Stroke Sister CAD (coronary artery disease) Chronic kidney disease (CKD) Lung disease Family/Other Diabetes Stroke Grandfather Suicide Denies family history of Dementia Social History Smoking and tobacco/nicotine status: never used tobacco/nicotine Quit status (tobacco/nicotine): considering quitting Second hand smoke exposure: Yes Alcohol intake: never Substance/Drug Use: current Other substance/drug use details: Couple of months ago Gummies Adopted: No Lives independently: Yes Household members: none Housing: Apartment Marital status: / Current occupational status: disabled Do you think of yourself as: Straight/Heterosexual Current gender identity: Female Vitals/I&O/Wt Last Vital Signs Temp 98.2 F 01/29/25 16:06 Pulse 93 01/29/25 16:06 Resp 20 H 01/29/25 16:06 BP 142/74 01/29/25 16:06 Pulse Ox 98 01/29/25 16:06 O2 Del Method Nasal Cannula 01/29/25 16:06 O2 Flow Rate 3 01/29/25 13:40 01/29/25 01/29/25 01/29/25 06:59 14:59 22:59 Intake Total 250 / 250 720 / 720 Output Total 175 / 2725 Balance 75 / -2475 720 / 720 Weight last 48 hrs Weight 49.612 kg Weight 50.167 kg Physical Exam Narrative: General: No acute distress, AO x3, chronically ill appearing HEENT: PERRLA, pupils bilaterally equal and reactive, pallors not present Chest: Normal vesicular breath sounds, no added sounds, equal good air entry bilaterally CVS: S1-S2 regular, no murmurs, no tachycardia, no gallops, no rubs Abdomen: Soft, nontender, no organomegaly, bowel sounds present Neuro: No focal deficits, no facial deformity, AO x3, power 5/5 in all limbs Urinary Catheter Management: Mayer Latex: Cath Placed During This Visit: yes Reason for Continuing Indwelling Catheter: Other Urinary Catheter Date of Insertion: 01/28/25 Urinary Catheter Time of Insertion: 11:46 Data 01/30/25 05:08 01/30/25 05:08 Micro: Microbiology 01/27/25 18:36 Blood Culture - Preliminary Blood NEGATIVE TO DATE 01/27/25 18:36 Blood Culture - Preliminary Blood NEGATIVE TO DATE NAME: Sakina Lombardi LOC: [facility] #: [id number] AGE/SX: 74/F ROOM: [facility] RE01/24/[address]: Chet Bowman MD : 1950 BED: 1 DIS: FAX #: STATUS: ADM IN TLOC: Spec #: [id number] Marisabel: 01/27/25 Status: RES Req #: [id number] Recd: 01/27/[address]: Carter Cast MD Src: Blood SpDesc: Ordered: Bcult Procedure Result Verified Site Blood Culture Preliminary 01/28/25 NEGATIVE TO DATE Blood Culture Preliminary (changed) 01/27/25 SPECIMEN COLLECTED NAME: Delia Lombardiycwilma Carrera LOC: [facility] U #: [id number] AGE/SX: 74/F ROOM: 255 RE01/24/[address]: Chet Bowman MD : 1950 BED: 1 DIS: FAX #: STATUS: ADM IN TLOC: Spec #: [id number] Marisabel: 01/26/25 Status: RES Req #: [id number] Recd: 01/26/[address]: Carter Cast MD Src: Blood SpDesc: Ordered: Bcult Procedure Result Verified Site Blood Culture Preliminary 01/28/25 3 OF 3 BOTTLES POSITIVE DIRECT GRAM STAIN: GRAM POSITIVE COCCI IN PAIRS AND CHAINS IDENTIFICATION BY DIRECT PCR RESULTS TO FOLLOW Organism 1 Enterococcus faecalis Growth 3 BOTTLES Gram Stain Charge Charge for Gram Stain CRITICAL RESULT YES/NO: YES CRITICAL CALLED BY: RIDGE TO AND READ BACK BY: PASCUAL DATE: 01/27/25 TIME: 1430 Blood Culture Preliminary (changed) 01/27/25 NEGATIVE TO DATE Blood Culture Preliminary (changed) 01/26/25 SPECIMEN COLLECTED NAME: Sakina Lombardi LOC: [facility] U #: [id number] AGE/SX: 74/F ROOM: 255 RE01/24/[address]: Chet Bowman MD : 1950 BED: 1 DIS: FAX #: STATUS: ADM IN TLOC: Spec #: [id number] Marisabel: 01/26/25 Status: RES Req #: [id number] Recd: 01/26/[address]: Carter Cast MD Src: Blood SpDesc: Ordered: Bcult Procedure Result Verified Site Blood Culture Preliminary 01/30/25 3 OF 3 BOTTLES POSITIVE DIRECT GRAM STAIN: GRAM POSITIVE COCCI IN CHAINS IDENTIFICATION BY DIRECT PCR RESULTS TO FOLLOW Organism 1 Enterococcus faecalis Growth 3 BOTTLES Gram Stain Charge Charge for Gram Stain CRITICAL RESULT YES/NO: YES CRITICAL CALLED BY: RIDGE TO AND READ BACK BY: PASCUAL DATE: 01/27/25 TIME: 1430 E faecalis M.I.C. RX --------- ------ * Ampicillin <=2 S * Linezolid 2 S * Penicillin 2 S Vancomycin 2 S Gentamicin Synergy Screen <=500 S Daptomycin 2 S Enterococcus faecalis: Gram Pos Combo 33-MScan Gentamicin Synergy Screen S Blood Culture Preliminary (changed) 01/28/25 3 OF 3 BOTTLES POSITIVE DIRECT GRAM STAIN: GRAM POSITIVE COCCI IN CHAINS IDENTIFICATION BY DIRECT PCR RESULTS TO FOLLOW Organism 1 Enterococcus faecalis Growth 3 BOTTLES Gram Stain Charge Charge for Gram Stain CRITICAL RESULT YES/NO: YES CRITICAL CALLED BY: RIDGE TO AND READ BACK BY: PASCUAL DATE: 01/27/25 TIME: 1430 Blood Culture Preliminary (changed) 01/27/25-1635 1 OF 3 BOTTLES POSITIVE, COLLECTED WITH PORT DIRECT GRAM STAIN: GRAM POSITIVE COCCI IN CHAINS IDENTIFICATION BY DIRECT PCR RESULTS TO FOLLOW Organism 1 Enterococcus faecalis Growth 1 BOTTLE Gram Stain Charge Charge for Gram Stain CRITICAL RESULT YES/NO: YES CRITICAL CALLED BY: RIDGE TO AND READ BACK BY: PASCUAL DATE: 01/27/25 TIME: 1430 Blood Culture Preliminary (changed) 01/27/25-1431 1 OF 3 BOTTLES POSITIVE DIRECT GRAM STAIN: GRAM POSITIVE COCCI IN CHAINS RESULTS TO FOLLOW Gram Stain Charge Charge for Gram Stain CRITICAL RESULT YES/NO: YES CRITICAL CALLED BY: RIDGE TO AND READ BACK BY: PASCUAL DATE: 01/27/25 TIME: 1430 NAME: Sakina Lombardi LOC: [facility] U #: [id number] AGE/SX: 74/F ROOM: [facility] RE01/24/[address]: Chet Bowman MD : 1950 BED: 1 DIS: FAX #: STATUS: ADM IN TLOC: Spec #: [id number] Marisabel: 01/25/25 Status: COMP Req #: [id number] Recd: 01/25/25-[address]: Yessenia Mendez MD Src: Blood SpDesc: Ordered: Bcult Comments: LABEL IN BOX, NO NOTES ON ORDER, NOT COLLECTED W A.M. ROUNDS, WILL BE COLLECTED SOON POSSIBLE/KINME Procedure Result Verified Site Blood Culture Final 01/27/25-152 4 OF 4 BOTTLES POSITIVE DIRECT GRAM STAIN: GRAM POSITIVE COCCI IN CHAINS IDENTIFICATION BY DIRECT PCR SUSCEPTIBILITIES SET UP ON CULTURE [id number] Organism 1 Enterococcus faecalis Growth 4 BOTTLES Gram Stain Charge Charge for Gram Stain CRITICAL RESULT YES/NO: YES CRITICAL CALLED BY: KAJAL TO AND READ BACK BY: [email or web address] DATE: 01/25/25 TIME: 2324 Blood Culture Preliminary (changed) 01/26/25-1216 4 OF 4 BOTTLES POSITIVE DIRECT GRAM STAIN: GRAM POSITIVE COCCI IN CHAINS IDENTIFICATION BY DIRECT PCR SUSCEPTIBILITIES SET UP ON CULTURE [id number] Organism 1 Enterococcus faecalis Growth 4 BOTTLES Gram Stain Charge Charge for Gram Stain CRITICAL RESULT YES/NO: YES CRITICAL CALLED BY: KAJAL TO AND READ BACK BY: [email or web address] DATE: 01/25/25 TIME: 2324 Blood Culture Preliminary (changed) 01/25/25-2326 1 OF 2 BOTTLES POSITIVE DIRECT GRAM STAIN: GRAM POSITIVE COCCI IN CHAINS IDENTIFICATION BY DIRECT PCR RESULTS TO FOLLOW Organism 1 Enterococcus faecalis Growth 1 BOTTLE CRITICAL RESULT YES/NO: YES CRITICAL CALLED BY: KAJAL TO AND READ BACK BY: [email or web address] DATE: 01/25/25 TIME: 2324 NAME: Sakina Lombardi LOC: [facility] U #: [id number] AGE/SX: 74/F ROOM: 255 RE01/24/[address]: Chet Bowman MD : 1950 BED: 1 DIS: FAX #: STATUS: ADM IN TLOC: Spec #: [id number] Marisabel: 01/24/25 Status: COMP Req #: [id number] Recd: 01/24/[address]: Yessenia Mendez MD Src: Blood SpDesc: Ordered: Bcult Procedure Result Verified Site Blood Culture Final 01/27/25-1528 4 OF 4 BOTTLES POSITIVE DIRECT GRAM STAIN: GRAM POSITIVE COCCI IN PAIRS AND CHAINS IDENTIFICATION BY DIRECT PCR SUSCEPTITIBITIES SET UP ON CULTURE [id number] Organism 1 Enterococcus faecalis Growth 4 BOTTLES Gram Stain Charge Charge for Gram Stain CRITICAL RESULT YES/NO: YES CRITICAL CALLED BY: RT TO AND READ BACK BY: YAMILETHCicerOOs DATE: 01/25/25 TIME: 1058 Blood Culture Preliminary (changed) 01/26/25-1215 4 OF 4 BOTTLES POSITIVE DIRECT GRAM STAIN: GRAM POSITIVE COCCI IN PAIRS AND CHAINS IDENTIFICATION BY DIRECT PCR SUSCEPTITIBITIES SET UP ON CULTURE [id number] Organism 1 Enterococcus faecalis Growth 4 BOTTLES Gram Stain Charge Charge for Gram Stain CRITICAL RESULT YES/NO: YES CRITICAL CALLED BY: RT TO AND READ BACK BY: YAMILETHCicerOOs DATE: 01/25/25 TIME: 1058 Blood Culture Preliminary (changed) 01/25/25-1304 2 OF 2 BOTTLES POSITIVE DIRECT GRAM STAIN: GRAM POSITIVE COCCI IN PAIRS AND CHAINS IDENTIFICATION BY DIRECT PCR RESULTS TO FOLLOW Organism 1 Enterococcus faecalis Growth 2 BOTTLES Gram Stain Charge Charge for Gram Stain CRITICAL RESULT YES/NO: YES CRITICAL CALLED BY: RT TO AND READ BACK BY: YAMILETHCicerOOs DATE: 01/25/25 TIME: 1058 Blood Culture Preliminary (changed) 01/25/25-105 1 OF 2 BOTTLES POSITIVE DIRECT GRAM STAIN: GRAM POSITIVE COCCI IN PAIRS AND CHAINS IDENTIFICATION BY DIRECT PCR RESULTS TO FOLLOW Organism 1 Enterococcus faecalis Growth 1 BOTTLE Gram Stain Charge Charge for Gram Stain CRITICAL RESULT YES/NO: YES CRITICAL CALLED BY: RT TO AND READ BACK BY: YAMILETHCicerOOs DATE: 01/25/25 TIME: 1058 NAME: Sakina Lombardi LOC: [facility] U #: [id number] AGE/SX: 74/F ROOM: 255 RE01/24/[address]: Chet Bowman MD : 1950 BED: 1 DIS: FAX #: STATUS: ADM IN TLOC: Spec #: [id number] Marisabel: 01/24/25 Status: COMP Req #: [id number] Recd: 01/24/25-[address]: Joseph De Los Santos MD Src: Urine Cath SpDesc: Ordered: UC Procedure Result Verified Site Urine Culture Final 01/27/25-1720 Organism 1 Enterococcus faecalis [place] Count 20,000 - 30,000 CFU/ml DAY 2 E faecalis M.I.C. RX --------- ------ * Ampicillin <=2 S * Ciprofloxacin <=1 S * Levofloxacin 2 S * Linezolid 2 S * Nitrofurantoin <=32 S * Penicillin 2 S * Tetracycline >8 R Vancomycin 4 S Gentamicin Synergy Screen <=500 S Daptomycin 2 S Enterococcus faecalis: Gram Pos Combo 33-MScan Gentamicin Synergy Screen S Urine Culture Preliminary (changed) 01/26/25 Organism 1 Strep species, gamma-hemolytic [place] Count 20,000 - 30,000 CFU/ml DAY 1, RESULTS TO FOLLOW NAME: Maria CSakina garrison Debi LOC: ER U #: [id number] AGE/SX: 74/F ROOM: RE01/23/[address]: Yessenia Mendez MD : 1950 BED: DIS: FAX #: STATUS: [facility] TLOC: Spec #: [id number] Marisabel: 01/23/25 Status: COMP Req #: [id number] Recd: 01/23/[address]: Yessenia Mendez MD Src: Blood SpDesc: Ordered: Bcult Procedure Result Verified Site Blood Culture Final 01/26/25 4 OF 4 BOTTLES POSITIVE DIRECT GRAM STAIN: GRAM POSITIVE COCCI IN CHAINS SENSITIVITIES ON [id number] Organism 1 Enterococcus faecalis Growth 4 BOTTLES Gram Stain Charge Charge for Gram Stain CRITICAL RESULT YES/NO: YES CRITICAL CALLED BY: RT TO AND READ BACK BY: AMOL DATE: 01/24/25 TIME: 09 Blood Culture Preliminary (changed) 01/24/25 NEGATIVE TO DATE Blood Culture Preliminary (changed) 01/23/25-1952 SPECIMEN COLLECTED NAME: Sakina Lombardi LOC: ER U #: [id number] AGE/SX: 74/F ROOM: RE01/23/[address]: Yessenia Mendez MD : 1950 BED: DIS: FAX #: STATUS: DEP ER TLOC: Spec #: [id number] Marisabel: 01/23/25 Status: COMP Req #: [id number] Recd: 01/23/[address]: Yessenia Mendez MD Src: Blood SpDesc: Ordered: Bcult Procedure Result Verified Site Blood Culture Final 01/26/25 4 OF 4 BOTTLES POSITIVE DIRECT GRAM STAIN: GRAM POSITIVE COCCI IN PAIRS AND CHAINS IDENTIFICATION BY DIRECT PCR Organism 1 Enterococcus faecalis Growth 4 BOTTLES Gram Stain Charge Charge for Gram Stain CRITICAL RESULT YES/NO: YES CRITICAL CALLED BY: RT TO AND READ BACK BY: [facility] DATE: 01/24/25 TIME: 904 E faecalis M.I.C. RX --------- ------ * Ampicillin <=2 S * Linezolid 2 S * Penicillin 2 S Vancomycin 4 S Gentamicin Synergy Screen <=500 S Daptomycin 2 S Enterococcus faecalis: Gram Pos Combo 33-MScan Gentamicin Synergy Screen S Blood Culture Preliminary (changed) 01/26/25 4 OF 4 BOTTLES POSITIVE DIRECT GRAM STAIN: GRAM POSITIVE COCCI IN PAIRS AND CHAINS IDENTIFICATION BY DIRECT PCR RESULTS TO FOLLOW Organism 1 Enterococcus faecalis Growth 4 BOTTLES Gram Stain Charge Charge for Gram Stain CRITICAL RESULT YES/NO: YES CRITICAL CALLED BY: RT TO AND READ BACK BY: PSYCHIATRICAL DATE: 01/24/25 TIME: 904 Blood Culture Preliminary (changed) 01/24/25 4 OF 4 BOTTLES POSITIVE DIRECT GRAM STAIN: GRAM POSITIVE COCCI IN PAIRS AND CHAINS IDENTIFICATION BY DIRECT PCR RESULTS TO FOLLOW Organism 1 Enterococcus faecalis Growth 3 BOTTLES Gram Stain Charge Charge for Gram Stain CRITICAL RESULT YES/NO: YES CRITICAL CALLED BY: RT TO AND READ BACK BY: SHIAL DATE: 01/24/25 TIME: 904 Blood Culture Preliminary (changed) 01/24/25-904 3 OF 4 BOTTLES POSITIVE DIRECT GRAM STAIN: GRAM POSITIVE COCCI IN PAIRS AND CHAINS IDENTIFICATION BY DIRECT PCR RESULTS TO FOLLOW Organism 1 Enterococcus faecalis Growth 3 BOTTLES Gram Stain Charge Charge for Gram Stain CRITICAL RESULT YES/NO: YES CRITICAL CALLED BY: RT TO AND READ BACK BY: PSYCHIATRICAL DATE: 01/24/25 TIME: 904 A&P Assessment and plan (1) Infection due to Port-A-Cath: (2) Endocarditis: (3) Enterococcus faecalis infection: Plan 74-year-old lady with multiple comorbidities as listed above, chronic Port-A-Cath due to poor IV access, 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 Urine culture additionally positive for Enterococcus faecalis. However given persistent positivity of blood cultures, echogenic structure as seen on echocardiogram, presence of Port-A-Cath, favor endovascular infection to be the most likely cause of persisting bacteremia. Infection with atypical organism, together with echogenic structure on echocardiogram concerning for infective endocarditis. Difficult to ascertain if Port-A-Cath infection may have led to endocarditis however again elevated at this time would recommend removal of Port-A-Cath and at least 6 weeks of IV antibiotics. Additionally recommend to obtain ASPEN to further characterize the echogenic structure seen on TTE. Patient has been on treatment with IV vancomycin since admission on January 24, 2025. Vancomycin trough appropriate at 19. Her chart notes a history of multiple drug allergies to amoxicillin, cefaclor, ciprofloxacin, metronidazole, penicillins, sulfa antibiotics, tetracyclines. When asked in detail about each of these allergies, patient states she does not recall which antibiotic she may be allergic to. She states that when she was a child she developed a rash to penicillin. However thinks she may have tolerated on Augmentin in the past without any issues. Review of her chart here from past admissions showed that she has received ceftriaxone and cefepime on multiple occasions in the past without any overt issues. I discussed with with her that for Enterococcus faecalis endocarditis, treatment of choice would be dual beta-lactam therapy with ampicillin and ceftriaxone. I suspect she will not truly be allergic to ceftriaxone as she has previously tolerated IV cephalosporins in the past. She does not recall if she is truly allergic to amoxicillin and other drug classes. She states that she has reacted to multiple antibiotics without knowing their exact drug class. She is willing to try ampicillin while in the hospital with close monitoring for development of any anaphylactic reactions while she gets this drug. She understands the high risk should she be truly having an IgE mediated allergic process however wishes to proceed with a trial at this time. Discussed with her about ampicillin infusion at home would need to be done either via a continuous infusion pump which would be ideal. If an infusion pump is not approved by her insurance, she would need to infuse the antibiotic every 4-6 hours at home. She states she would be unable to infuse antibiotic with this frequency as she does not have a lot of help around her house. She is unwilling to go to a retirement facility to complete her IV antibiotic course. We will first try to ascertain if she will be able to get a continuous infusion pump for home use. If this is approved, we will proceed with a trial of ampicillin here in the hospital. Will administer ampicillin first and then add ceftriaxone 24 to 48 hours later. Would prefer dual beta-lactam therapy over ampicillin plus gentamicin as we do not have reliable way of monitoring gentamicin levels as outpatient, patient has reduced creatinine clearance at 47 currently, I am afraid with her multiple other comorbidities she is at a higher risk of renal toxicity with use of gentamicin. Plan: Continue IV vancomycin for now Switch to AMP + ceftriaxone once availability of continuous infusion pump is confirmed Trial of ampicillin with close clinical monitoring for any anaphylaxis. Patient understands the high risk of proceeding with this trial recommend to get ASPEN recommend port removal total 6 weeks abx duration NO PICC LINE UNTIL cx clear for at least 48 hrs blood cx persistent + for E.fecalis on 01/23, 01/24,01/25 and 01/26 thus far cx from 01/27 is negative to date, however last updated on 01/28. will follow will follow PDMP PDMP Reviewed: Not Reviewed Coding Level of Care Code Acute Code for [facility] Diagnoses Infection due to Port-A-Cath T80.219A Endocarditis I38 Enterococcus faecalis infection A49.8
--- NOTE | 2025-01-29 16:56 | PM.CONSULT ---
Providers/Reason For Consult Consulting Physician/Specialty*: General Surgery Reason for Consult*: Removal of Port-A-Cath Attending Physician: Chet Bowman MD Primary Care Provider: Roger Reynoso DO History of Present Illness History of Present Illness Is a 74-year-old female with multiple medical comorbidities including thyroid cancer, lung cancer and flu is currently being evaluated by the medical team for persistent bacteremia and possible endocarditis. I have been requested to remove the patient Port-A-Cath. According to the patient she got this port about 2 years ago, she uses the port for blood draws and medication as she does not have any good veins. Review of Systems General: Reports: 10 or more systems reviewed and unremarkable except in HPI and below Medications/Allergies Home Medications ?Medication ?Instructions ?Recorded ?Confirmed ?Last Taken ?Type nitroglycerin 0.4 mg sublingual 0.4 mg sublingual Q5M PRN Chest 07/27/23 01/25/25 11/12/23 History tablet (Nitrostat) Pain magnesium oxide 400 mg PO DAILY 11/12/23 01/25/25 01/24/25 History albuterol sulfate 90 mcg/actuation 2 puff inhalation Q4H PRN 12/16/23 01/25/25 Unknown Rx aerosol inhaler shortness of breath or wheezing #6.7 grams buprenorphine 8 mg-naloxone 2 mg 1 film buccal TID 04/24/24 01/25/25 01/24/25 History sublingual film (Suboxone) potassium chloride 20 mEq/15 mL 15 meq (11.25 mL) PO BID #450 mL 07/20/24 01/25/25 01/24/25 Rx oral liquid chlorpheniramine 4 5 ml PO Q6H PRN cold symptoms #160 08/03/24 01/25/25 Unknown Rx mg-phenylephrine 10 mg-DM 15 mg/5 mL mL oral liquid (Ed A-Hist DM) nicotine See Rx Instructions transdermal 08/08/24 01/25/25 Unknown Rx 21mg/24hr-14mg/24hr-7mg/24hr daily .COMPLEX #56 patches transderm patches,sequentl loratadine 10 mg tablet 10 mg PO DAILY #30 tabs 08/17/24 01/25/25 01/24/25 Rx apixaban 2.5 mg tablet (Eliquis) 2.5 mg PO BID #60 tabs 08/28/24 01/25/25 01/24/25 Rx roflumilast 500 mcg tablet 500 mcg PO DAILY #30 tabs 10/03/24 01/25/25 Unknown Rx diphenoxylate-atropine 2.5 1 tab PO BID PRN diarrhea #30 tabs 10/10/24 01/25/25 Unknown Rx mg-0.025 mg tablet (Lomotil) fluticasone propionate 50 2 spray intranasal DAILY sinus 11/02/24 01/25/25 Unknown Rx mcg/actuation nasal congestion #16 grams spray,suspension cilostazol 50 mg tablet 50 mg PO BID #90 tabs 11/07/24 01/25/25 Unknown Rx levothyroxine 50 mcg tablet 50 mcg PO DAILY thyroid #90 tabs 11/16/24 01/25/25 01/24/25 Rx montelukast 4 mg chewable tablet 8 mg (2 x 4 mg) PO DAILY #60 tabs 11/24/24 01/25/25 01/24/25 Rx pantoprazole 40 mg tablet,delayed 40 mg PO BID #90 tabs 11/28/24 01/25/25 01/24/25 Rx release metoprolol tartrate 25 mg tablet 25 mg PO BID #180 tabs 12/27/24 01/25/25 01/24/25 Rx mupirocin 2 % topical ointment 1 applic topical BID nares #22 01/04/25 01/25/25 Unknown Rx grams prednisone 20 mg tablet 40 mg (2 x 20 mg) PO DAILY 5 days 01/23/25 01/25/25 01/24/25 Rx #10 tabs atorvastatin 20 mg tablet 20 mg PO DAILY 01/25/25 01/25/25 01/24/25 History baclofen 10 mg tablet 10 mg PO Q8H PRN muscle spasms 01/25/25 01/25/25 Unknown History bumetanide 1 mg tablet 1 mg PO BID PRN Edema 01/25/25 01/25/25 01/24/25 History calcitriol 0.5 mcg capsule 0.5 mcg PO DAILY 01/25/25 01/25/25 01/24/25 History ferrous sulfate 325 mg (65 mg 325 mg PO DAILY microcytic anemia 01/29/25 Unknown Rx iron) tablet,delayed release #30 tabs Allergies Allergy/AdvReac Type Severity Reaction Status Date / Time amiodarone Allergy Severe ADR-Confusi Verified 01/24/25 19:21 on 2-octyl cyanoacrylate Allergy ALGY-Rash Verified 01/24/25 19:21 adhesive tape Allergy ALGY-Rash Verified 01/24/25 19:21 amitriptyline Allergy ALGY-Hives Verified 01/24/25 19:21 amoxicillin Allergy ALGY-Hives Verified 01/24/25 19:21 cefaclor (From Ceclor) Allergy ALGY-Difficulty Verified 01/24/25 19:21 Breathing ciprofloxacin (From Cipro) Allergy ALGY-Difficulty Verified 01/24/25 19:21 Breathing gabapentin Allergy ALGY-Hives Verified 01/24/25 19:21 ibuprofen Allergy ALGY-Hives Verified 01/24/25 19:21 metronidazole (From Flagyl) Allergy ALGY-Hives Verified 01/24/25 19:21 Penicillins Allergy ALGY-Hives Verified 01/24/25 19:21 Sulfa (Sulfonamide Allergy ALGY-Hives Verified 01/24/25 19:21 Antibiotics) sulfamethoxazole (From Allergy ALGY-Difficulty Verified 01/24/25 19:21 Bactrim) Breathing tetracycline Allergy ALGY-Hives Verified 01/24/25 19:21 trimethoprim Allergy ALGY-Hives Verified 01/24/25 19:21 Current Medications Generic Name Dose Route Start Last Admin Trade Name Freq PRN Reason Stop Dose Admin Albuterol/Ipratropium 3 ml 01/25/25 08:00 01/29/25 13:40 Ipratropium-Albuterol 3 Ml Neb INHALATION 3 ml Q6H.RESP ALEXA Administration Benzonatate 200 mg 01/25/25 11:22 01/27/25 18:39 Benzonatate 100 Mg Capsule PO 200 mg TID PRN Administration COUGH Bumetanide 1 mg 01/28/25 09:16 01/29/25 06:04 Bumetanide 0.25 Mg/Ml Sdv 4 Ml IVP 1 mg BIDAC ALEXA Administration Buprenorphine/Naloxone 2 each 01/24/25 21:00 01/29/25 15:44 Buprenorphine-Naloxone 4-1 Mg Film SUBLINGUAL 2 each TID ALEXA Administration Calcitriol 0.5 mcg 01/25/25 09:00 01/29/25 10:07 Calcitriol 0.25 Mcg Capsule PO 0.5 mcg DAILY ALEXA Administration Guaifenesin 1,200 mg 01/25/25 11:22 01/27/25 09:24 Guaifenesin 600 Mg Tablet PO 1,200 mg BID PRN Administration congestion Vancomycin HCl 750 mg/ Sodium 250 mls @ 250 mls/hr 01/27/25 01:00 01/29/25 03:03 Chloride IV Infused Q24H ALEXA Infusion Lanolin 1 applic 01/25/25 20:33 01/26/25 02:27 Lanolin Oint 7 Gm TOPICAL 1 applic PRN PRN Administration DRYNESS Levothyroxine Sodium 50 mcg 01/25/25 09:00 01/29/25 10:07 Levothyroxine 50 Mcg Tablet PO 50 mcg DAILY ALEXA Administration Magnesium Oxide 400 mg 01/27/25 09:00 01/29/25 10:07 Magnesium Oxide 400 Mg Tablet PO 400 mg DAILY ALEXA Administration Metoprolol Tartrate 25 mg 01/25/25 09:00 01/29/25 10:07 Metoprolol Tartrate 25 Mg Tablet PO 25 mg BID ALEXA Administration Pantoprazole Sodium 40 mg 01/25/25 09:00 01/29/25 10:[address] 40 Mg Tablet PO 40 mg BID ALEXA Administration Prednisone 40 mg 01/27/25 09:25 01/29/25 10:08 Prednisone 20 Mg Tablet PO 40 mg DAILY ALEXA Administration Roflumilast 500 mcg 01/25/25 09:00 01/29/25 10:07 Roflumilast 500 Mcg Tablet PO 500 mcg DAILY ALEXA Administration Senna/Docusate Sodium 1 tab 01/25/25 09:00 01/29/25 10:08 Sennosides-Docusate Tablet PO 1 tab DAILY ALEXA Administration PFSH Acute PFSH: Medical History (Updated 01/29/25 @ 16:11 by Yoana Gross MD) Tobacco dependence Weakness Passed out Syncope Localized swelling of both lower legs Lung nodule Skin lesions Dyslipidemia (high LDL; low HDL) Acute exacerbation of chronic obstructive pulmonary disease Lump of right breast Lung cancer right lower lobe Left shoulder pain Avulsion fracture of left talus Skin tear of right upper arm without complication Orthopnea Sinus node dysfunction Sinus pause Bradycardia Orthostatic hypotension Hypovitaminosis D Seizure-like activity Syncopal episodes Nicotine dependence, cigarettes, with unspecified nicotine-induced disorders Sacral decubitus ulcer Chronic rhinosinusitis Infected epidermoid cyst Fall Cor pulmonale Cor pulmonale Leg pain, left Nicotine addiction Chronic respiratory failure with hypoxia Aortic cusp regurgitation Actinic keratosis due to exposure to sunlight Closed intertrochanteric fracture of right hip Smoking addiction Chronic pain Thyroid cancer SOB (shortness of breath) History of COPD CVA (cerebral vascular accident) Benign essential hypertension CAD (coronary artery disease) Hx of carotid stenosis Leg pain, medial Neck strain COPD (chronic obstructive pulmonary disease) Plantar porokeratosis, acquired Surgical History Status post cardiac pacemaker procedure History of bronchoscopy History of hip surgery Hx of hysterectomy History of bilateral carpal tunnel release History of lumpectomy History of rectal surgery History of ankle surgery Status post open reduction and internal fixation (ORIF) of fracture H/O thyroidectomy S/P hardware removal Spine History of back surgery Port-A-Cath in place Family History Brother Leukemia Diabetes Lung disease Mother Anesthesia complication CAD (coronary artery disease) Father Bleeding disorder Clotting disorder CAD (coronary artery disease) Cancer Stroke Sister CAD (coronary artery disease) Chronic kidney disease (CKD) Lung disease Family/Other Diabetes Stroke Grandfather Suicide Denies family history of Dementia Social History Smoking and tobacco/nicotine status: never used tobacco/nicotine Quit status (tobacco/nicotine): considering quitting Second hand smoke exposure: Yes Alcohol intake: never Substance/Drug Use: current Other substance/drug use details: Couple of months ago Gummies Adopted: No Lives independently: Yes Household members: none Housing: Apartment Marital status: / Current occupational status: disabled Do you think of yourself as: Straight/Heterosexual Current gender identity: Female Vitals/I&O/Wt Last Vital Signs Temp 98.2 F 01/29/25 16:06 Pulse 93 01/29/25 16:06 Resp 20 H 01/29/25 16:06 BP 142/74 01/29/25 16:06 Pulse Ox 98 01/29/25 16:06 O2 Del Method Nasal Cannula 01/29/25 16:06 O2 Flow Rate 3 01/29/25 13:40 01/29/25 01/29/25 01/29/25 06:59 14:59 22:59 Intake Total 250 / 250 720 / 720 Output Total 175 / 2725 Balance 75 / -2475 720 / 720 Weight last 48 hrs Weight 109 lb 6 oz Weight 110 lb 9.6 oz Physical Exam Narrative: Patient appears frail and malnourished On the right upper chest there is a Port-A-Cath in place currently accessed. No erythema On the left upper chest a pacemaker can be palpated Urinary Catheter Management: Mayer Latex: Cath Placed During This Visit: yes Reason for Continuing Indwelling Catheter: Other Urinary Catheter Date of Insertion: 01/28/25 Urinary Catheter Time of Insertion: 11:46 Data 01/29/25 00:15 01/29/25 00:15 Micro: Microbiology 01/27/25 18:36 Blood Culture - Preliminary Blood NEGATIVE TO DATE 01/27/25 18:36 Blood Culture - Preliminary Blood NEGATIVE TO DATE A&P Assessment and plan (1) Endocarditis: (2) Bacteremia: Plan I had extensive discussion with the patient, I explained to her today and happy to remove the Port-A-Cath if that is needed but she needs to understand that if I remove her Port-A-Cath she might require additional IV access in the future. I also Splane to her that removing the port does not guarantee that her character remains unclear as she also has a pacemaker and in the case of persistent bacteremia she might require pacemaker change. She shows understanding is agreeable. Proceed to remove the Port-A-Cath. I discussed risk and benefits including the risk of bleeding and infection and she is agreeable to it. I have also informed the patient that we should get tentative IV access in the next 24 hours before we remove the Port-A-Cath so she can have IV medications as well as anesthesia during the procedure. She shows understanding agrees with the plan PDMP PDMP Reviewed: Not Reviewed Coding Level of Care Code 06210 Diagnoses Endocarditis I38 Bacteremia R78.81
--- NOTE | 2025-01-29 17:15 | PC.NURSE ---
In room to set it up for the administration of blood. Patient states, I would really like to eat first please and I know it takes me a little bit to eat so just be aware. Patient is having a hard time breathing just from while being pulled by a sheet to the edge of the bed to sit up for eating.
[2025-01-29] MEDS: enoxaparin 60 mg/0.6 mL Syringe 50 MG SUBCUT (17:30)
[2025-01-29] MEDS: cilostazol 100 mg Tablet 50 MG PO (17:31)
[2025-01-29] MEDS: zolpidem 5 mg Tablet PO (21:21)
[2025-01-30] VITALS (11 sets, daily range): BP systolic 112–155; BP diastolic 56–73; PULSE 94–110; RESP 16–24; TEMP 36.3–36.7; O2SAT 95–100
[2025-01-30] MEDS: VANCOMYCIN ADD-Vantage 750 MG in 0.9% NaCl ADD-Vantage 250 ML 250 MG IV (01:19)
--- NOTE | 2025-01-30 01:42 | PC.NURSE ---
A beginning of shift, patient anxious, tearful, asking me to stay in room with her because she is scared for her procedure. Patient asking for something to help her sleep. Dr. De Los Santos notified. Pamela x1 ordered.
[2025-01-30] MEDS: ipratropium-albuterol 3 mL Neb INHALATION ×3 (02:15→21:05)
[2025-01-30 05:42] LABS: Basophils % 0.1 %; Eosinophils % 0.1 %; Hematocrit 29.1 % (36-47); Lymphocytes # 0.6 10^3/uL (0.8-4.8); Lymphocytes % 4.9 %; Mean Corpuscular HGB Conc 28.9 g/dL (30-55); Mean Corpuscular Hemoglobin 23.8 pg (27-33); Mean Corpuscular Volume 82.4 fl (85-98); Mean Platelet Volume 9.1 fL (7.4-10.4); Monocytes # 0.7 10^3/uL (0.2-0.9); Monocytes % 5.8 %; Neutrophils # 10.79 10^3/uL (1.8-7.7); Neutrophils % 87.4 %; Nucleated Red Blood Cells % 0 %; Platelet Count 138 10^3/cmm (157-399); Red Blood Count 3.53 10^6/uL (3.85-5.65); Red Cell Distribution Width 16.8 % (12.1-15.1); White Blood Count 12.34 10^3/uL (3.29-11.43)
[2025-01-30 06:05] LABS: Alanine Aminotransferase 13 U/L (0-33); Albumin Level 2.9 g/dL (3.5-5.2); Alkaline Phosphatase 137 U/L (35-105); Anion Gap 9.1 (5-19); Aspartate Amino Transferase 18 U/L (0-32); Blood Urea Nitrogen 26 mg/dL (8-23); Carbon Dioxide 36 mmol/L (22-29); Chloride 93 mmol/L (98-107); Glucose 95 mg/dL (65-115); Osmolality Calculated 283 mOsm/kg (285-295); Potassium 4.1 mmol/L (3.5-5.1); Sodium 134 mmol/L (136-145); Total Bilirubin 0.8 mg/dL (0.15-1.2); Total Protein 5.9 g/dL (6.6-8.7)
[2025-01-30] MEDS: metoprolol tartrate 25 mg Tablet PO ×2 (11:06→17:15)
[2025-01-30] MEDS: predniSONE 20 mg Tablet 40 MG PO (11:07)
[2025-01-30] MEDS: sennosides-docusate Tablet 1 TAB PO (11:07)
[2025-01-30] MEDS: levothyroxine 50 mcg Tablet PO (11:07)
[2025-01-30] MEDS: magnesium oxide 400 mg tablet PO (11:07)
[2025-01-30] MEDS: atorvastatin 40 mg Tablet 20 MG PO (11:07)
[2025-01-30] MEDS: roflumilast 500 mcg Tablet PO (11:07)
[2025-01-30] MEDS: calcitriol 0.25 mcg Capsule 0.5 MCG PO (11:07)
[2025-01-30] MEDS: pantoprazole DR 40 mg Tablet PO ×2 (11:07→17:15)
[2025-01-30] MEDS: buprenorphine-naloxone 4-1 mg Film 2 EACH SUBLINGUAL ×3 (11:08→21:30)
[2025-01-30] MEDS: enoxaparin 60 mg/0.6 mL Syringe 50 MG SUBCUT (11:08)
[2025-01-30] MEDS: cilostazol 100 mg Tablet 50 MG PO (11:08)
[2025-01-30] MEDS: bumetanide 0.25 mg/mL SDV 4 mL 1 MG IVP ×3 (11:08→23:03)
--- NOTE | 2025-01-30 11:16 | XRR_ITS ---
PROCEDURE INFORMATION: Exam: XR Right Knee Exam date and time: 01/30/2025 11:40 AM Age: 74 years old Clinical indication: Pain; Knee; Right; HX of lung cancer; Additional info: Pain/swelling TECHNIQUE: Imaging protocol: Radiologic exam of the right knee. Views: 3 views. COMPARISON: CR XR knee RT 3V* [id number] 08/05/2023 7:31 PM FINDINGS: Bones/joints: Chondrocalcinosis. Tricompartment narrowing and spurring. Likely healed fracture deformity of the proximal fibula, present previously. Soft tissues: Normal. XR/XR knee RT 3V* [id number] IMPRESSION: Degenerative changes.
--- NOTE | 2025-01-30 11:16 | P.CONIM_ITS ---
<Statement entered by Tai Ramirez M.D - 01/31/25 07:56> Patient was evaluated and cared for in conjunction with an advanced practice practitioner.? I personally examined the patient and reviewed the chart and all pertinent data including imaging, telemetry, and laboratory results.? I discussed the patient in detail with the advanced practice practitioner.? Please see? their note for complete consult note, testing results and agreed upon plan of care for the patient. GENERAL: Patient is alert, awake and oriented x3. HEART: Regular S1 and S2 LUNGS: Clear to auscultate bilaterally. CENTRAL NERVOUS SYSTEM: Grossly nonfocal. EXTREMITIES: Lower extremities with out edema bilaterally. Bacteremia Echogenic structure seen in the Right atrium Patient mentioned, will injury to throat with scarring in the past. We will hold off on transesophageal echocardiogram. Can look into alternative cardiac testing modalities vs medical therapy. Discussion with ID and primary team Thank you for involving us with care of this patient. Please call with questions Providers/Reason For Consult 2 Consulting Physician/Specialty*: Dr Ramirez, cardiology Reason for Consult*: Echogenic structure right atrium Requesting Physician: Dr Bowman Attending Physician: Chet Bowman MD Primary Care Provider: Roger Reynoso DO History of Present Illness History of Present Illness Sakina Lombardi is a 74 year old female with past medical history of COPD, CAD, cor pulmonale, smoking addiction, hx of carotid stenosis, dyslipidemia, PPM for syncope and bradycardia. She was seen in the emergency room 01/23/25 for shortness of breath, blood cultures obtained were positive for Enterococcus faecalis, she was asked to return to the hospital for antibiotic treatment. Echocardiogram 01/24/25 showed normal LVEF, echogenic structure seen in the right atrium in proximity to tricuspid valve. She has a port, placed due to poor IV access, which is scheduled to be removed tomorrow, as it could be the source of infection. She has a [employer] single lead pacemaker, implanted in 2022. She was pacing 1.9% as of the most recent check in September. Review of Systems 2 Eyes: Denies: change in vision ENMT: Denies: epistaxis Card: Reports: edema and dyspnea on exertion; Denies: chest pain, palpitations, irregular heart rhythm, syncope, pre-syncope, orthopnea or leg pain with exertion Resp: Denies: dyspnea, productive cough or wheezing GI: Denies: nausea, vomiting, hematemesis, hematochezia or melena : Denies: hematuria Edgar/Lymph: Denies: easy bruising or easy bleeding Medications/Allergies Home Medications ?Medication ?Instructions ?Recorded ?Confirmed ?Last Taken ?Type nitroglycerin 0.4 mg sublingual 0.4 mg sublingual Q5M PRN Chest 07/27/23 01/25/25 11/12/23 History tablet (Nitrostat) Pain magnesium oxide 400 mg PO DAILY 11/12/2301/24/25 History albuterol sulfate 90 mcg/actuation 2 puff inhalation Q 4H PRN 12/16/23 01/25/25 Unknown Rx aerosol inhaler shortness of breath or wheez ing #6.7 grams buprenorphine 8 mg-naloxone 2 mg 1 film buccal TID 01/25/25 01/24/25 History sublingual film (Suboxone) potassium chloride 20 mEq/15 mL 15 meq (11.25 mL) PO B ID #450 mL 07/20/24 01/25/25 01/24/25 Rx oral liquid chlorpheniramine 4 5 ml PO Q6H PRN cold symptom s #160 08/03/24 01/25/25 Unknown Rx mg-phenylephrine 10 mg-DM 15 mg/5 mL mL oral liquid (Ed A-Hist DM) nicotine See Rx Instructions transder mal 08/08/24 01/25/25 Unknown Rx 21mg/24hr-14mg/24hr-7mg/24hr daily .COMPLEX #56 patche s transderm patches,sequentl loratadine 10 mg tablet 10 mg PO DAILY #30 tabs 07/3001/25/25 01/24/25 Rx apixaban 2.5 mg tablet (Eliquis) 2.5 mg PO BID #60 tab s 08/28/24 01/25/25 01/24/25 Rx roflumilast 500 mcg tablet 500 mcg PO DAILY #30 tabs 1 12/03/23 01/25/25 Unknown Rx diphenoxylate-atropine 2.5 1 tab PO BID PRN diarrhea # 30 tabs 10/10/24 01/25/25 Unknown Rx mg-0.025 mg tablet (Lomotil) fluticasone propionate 50 2 spray intranasal DAILY sin us 11/02/24 01/25/25 Unknown Rx mcg/actuation nasal congestion #16 grams spray,suspension cilostazol 50 mg tablet 50 mg PO BID #90 tabs 01/25/25 Unknown Rx levothyroxine 50 mcg tablet 50 mcg PO DAILY thyroid #9 0 tabs 11/16/24 01/25/25 01/24/25 Rx montelukast 4 mg chewable tablet 8 mg (2 x 4 mg) PO DA DOMENIC #60 tabs 11/24/24 01/25/25 01/24/25 Rx pantoprazole 40 mg tablet,delayed 40 mg PO BID #90 tab s 11/28/24 01/25/25 01/24/25 Rx release metoprolol tartrate 25 mg tablet 25 mg PO BID #180 tab s 12/27/24 01/25/25 01/24/25 Rx mupirocin 2 % topical ointment 1 applic topical BID na res #22 01/04/25 01/25/25 Unknown Rx grams prednisone 20 mg tablet 40 mg (2 x 20 mg) PO DAILY 5 days 01/23/25 01/25/25 01/24/25 Rx #10 tabs atorvastatin 20 mg tablet 20 mg PO DAILY 01/25/2512/3101/24/25 History baclofen 10 mg tablet 10 mg PO Q8H PRN muscle spas ms 01/25/25 01/25/25 Unknown History bumetanide 1 mg tablet 1 mg PO BID PRN Edema 01/25/25 01/24/25 History calcitriol 0.5 mcg capsule 0.5 mcg PO DAILY 01/25/25 0 01/25/25 01/24/25 History ferrous sulfate 325 mg (65 mg 325 mg PO DAILY microcyt ic anemia 01/29/25 Unknown Rx iron) tablet,delayed release #30 tabs Allergies Allergy/AdvReac Type Severity Reaction Status Date / Time amiodarone Allergy Severe ADR-Confusi Verified 01/24/25 19:21 on 2-octyl cyanoacrylate Allergy ALGY-Rash Verified 01/24/25 19:21 adhesive tape Allergy ALGY-Rash Verified 01/24/25 19:21 amitriptyline Allergy ALGY-Hives Verified 01/24/25 19:21 amoxicillin Allergy ALGY-Hives Verified 01/24/25 19:21 cefaclor (From Ceclor) Allergy ALGY-Difficulty Verified 01/24/25 19:21 Breathing ciprofloxacin (From Cipro) Allergy ALGY-Difficulty Verified 01/24/25 19:21 Breathing gabapentin Allergy ALGY-Hives Verified 01/24/25 19:21 ibuprofen Allergy ALGY-Hives Verified 01/24/25 19:21 metronidazole (From Flagyl) Allergy ALGY-Hives Verified 01/24/25 19:21 Penicillins Allergy ALGY-Hives Verified 01/24/25 19:21 Sulfa (Sulfonamide Allergy ALGY-Hives Verified 01/24/25 19:21 Antibiotics) sulfamethoxazole (From Allergy ALGY-Difficulty Verified 01/24/25 19:21 Bactrim) Breathing tetracycline Allergy ALGY-Hives Verified 01/24/25 19:21 trimethoprim Allergy ALGY-Hives Verified 01/24/25 19:21 Current Medications Generic Name Dose Route Start Last Admin Trade Name Freq PRN Reason Stop Dose Admin Albuterol/Ipratropium 3 ml 01/25/25 08:00 01/30/25 21:05 Ipratropium-Albuterol 3 Ml Neb INHALATION 3 ml Q6H.RESP ALEXA Administration Atorvastatin Calcium 20 mg 01/30/25 09:00 01/30/25 11:07 Atorvastatin 40 Mg Tablet PO 20 mg DAILY ALEXA Administration Benzonatate 200 mg 01/25/25 11:22 01/27/25 18:39 Benzonatate 100 Mg Capsule PO 200 mg TID PRN Administration COUGH Bumetanide 1 mg 01/30/25 15:00 01/30/25 15:07 Bumetanide 0.25 Mg/Ml Sdv 4 Ml IVP 1 mg Q8H ALEXA Administration Buprenorphine/Naloxone 2 each 01/24/25 21:00 01/30/25 15:07 Buprenorphine-Naloxone 4-1 Mg Film SUBLINGUAL 2 each TID ALEXA Administration Calcitriol 0.5 mcg 01/25/25 09:00 01/30/25 11:07 Calcitriol 0.25 Mcg Capsule PO 0.5 mcg DAILY ALEXA Administration Cilostazol 50 mg 01/29/25 18:00 01/30/25 11:08 Cilostazol 100 Mg Tablet PO 50 mg BID ALEXA Administration Enoxaparin Sodium 50 mg 01/30/25 09:00 01/30/25 11:08 Enoxaparin 60 Mg/0.6 Ml Syringe SUBCUT 50 mg Q12H ALEXA Administration Guaifenesin 1,200 mg 01/25/25 11:22 01/27/25 09:24 Guaifenesin 600 Mg Tablet PO 1,200 mg BID PRN Administration congestion Vancomycin HCl 750 mg/ Sodium 250 mls @ 250 mls/hr 01/27/25 01:00 01/30/25 02:33 Chloride IV Infused Q24H ALEXA Infusion Albumin Human 25 g in 100 mls @ 60 mls/hr 01/30/25 14:00 01/30/25 17:18 Albumin IV Infused Q8H ALEXA Infusion Ampicillin Sodium 2,000 mg/ 50 mls @ 100 mls/hr 01/30/25 15:30 01/30/25 17:30 Sodium Chloride IV Infused Q6H ALEXA Infusion Protocol Lanolin 1 applic 01/25/25 20:33 01/26/25 02:27 Lanolin Oint 7 Gm TOPICAL 1 applic PRN PRN Administration DRYNESS Levothyroxine Sodium 50 mcg 01/25/25 09:00 01/30/25 11:07 Levothyroxine 50 Mcg Tablet PO 50 mcg DAILY ALEXA Administration Magnesium Oxide 400 mg 01/27/25 09:00 01/30/25 11:07 Magnesium Oxide 400 Mg Tablet PO 400 mg DAILY ALEXA Administration Metoprolol Tartrate 25 mg 01/25/25 09:00 01/30/25 17:15 Metoprolol Tartrate 25 Mg Tablet PO 25 mg BID ALEXA Administration Pantoprazole Sodium 40 mg 01/25/25 09:00 01/30/25 17:[address] 40 Mg Tablet PO 40 mg BID ALEXA Administration Prednisone 40 mg 01/27/25 09:25 01/30/25 11:07 Prednisone 20 Mg Tablet PO 02/01/25 09:24 40 mg DAILY ALEXA Administration Roflumilast 500 mcg 01/25/25 09:00 01/30/25 11:07 Roflumilast 500 Mcg Tablet PO 500 mcg DAILY ALEXA Administration Senna/Docusate Sodium 1 tab 01/25/25 09:00 01/30/25 11:07 Sennosides-Docusate Tablet PO 1 tab DAILY ALEXA Administration PFSH Acute 2 PFSH: Medical History Tobacco dependence Weakness Passed out Syncope Localized swelling of both lower legs Lung nodule Skin lesions Dyslipidemia (high LDL; low HDL) Acute exacerbation of chronic obstructive pulmonary disease Lump of right breast Lung cancer right lower lobe Left shoulder pain Avulsion fracture of left talus Skin tear of right upper arm without complication Orthopnea Sinus node dysfunction Sinus pause Bradycardia Orthostatic hypotension Hypovitaminosis D Seizure-like activity Syncopal episodes Nicotine dependence, cigarettes, with unspecified nicotine-induced disorders Sacral decubitus ulcer Chronic rhinosinusitis Infected epidermoid cyst Fall Cor pulmonale Cor pulmonale Leg pain, left Nicotine addiction Chronic respiratory failure with hypoxia Aortic cusp regurgitation Actinic keratosis due to exposure to sunlight Closed intertrochanteric fracture of right hip Smoking addiction Chronic pain Thyroid cancer SOB (shortness of breath) History of COPD CVA (cerebral vascular accident) Benign essential hypertension CAD (coronary artery disease) Hx of carotid stenosis Leg pain, medial Neck strain COPD (chronic obstructive pulmonary disease) Plantar porokeratosis, acquired Surgical History Status post cardiac pacemaker procedure History of bronchoscopy History of hip surgery Hx of hysterectomy History of bilateral carpal tunnel release History of lumpectomy History of rectal surgery History of ankle surgery Status post open reduction and internal fixation (ORIF) of fracture H/O thyroidectomy S/P hardware removal Spine History of back surgery Port-A-Cath in place Family History Brother Leukemia Diabetes Lung disease Mother Anesthesia complication CAD (coronary artery disease) Father Bleeding disorder Clotting disorder CAD (coronary artery disease) Cancer Stroke Sister CAD (coronary artery disease) Chronic kidney disease (CKD) Lung disease Family/Other Diabetes Stroke Grandfather Suicide Denies family history of Dementia Social History Smoking and tobacco/nicotine status: never used tobacco/nicotine Quit status (tobacco/nicotine): considering quitting Second hand smoke exposure: Yes Alcohol intake: never Substance/Drug Use: current Other substance/drug use details: Couple of months ago Gummies Adopted: No Lives independently: Yes Household members: none Housing: Apartment Marital status: / Current occupational status: disabled Do you think of yourself as: Straight/Heterosexual Current gender identity: Female Vitals/I&O/Wt Last Vital Signs Temp 97.5 F L 01/30/25 19:45 Pulse 97 01/30/25 21:05 Resp 22 H 01/30/25 21:05 BP 112/56 01/30/25 19:45 Pulse Ox 96 01/30/25 21:05 O2 Del Method Nasal Cannula 01/30/25 21:05 O2 Flow Rate 3 01/30/25 21:05 01/30/25 01/30/25 01/30/25 06:59 14:59 22:59 Intake Total 720 / 1800 360 / 750 390 / 750 Output Total 950 / 1800 2100 / 2100 Balance -230 / 0 360 / -1350 -1710 / -1350 Weight last 48 hrs Weight 117 lb 1.6 oz Weight 109 lb 6 oz Physical Exam 2 Const: GENERAL APPEARANCE: ill appearing ORIENTATION/CONSCIOUSNESS: Yes awake, Yes oriented to person, Yes oriented to place and Yes oriented to time Chest: OTHER: port in place, right chest Resp: EFFORT & INSPECTION: Yes able to speak in complete sentences A USCULTATION: diminished lung sounds bilateral in the lower lung mata Cardio: COMMON NORMALS: regular rate, regular rhythm, S1 normal heart sound present and S2 normal heart sound present RATE: regular rate RHYTHM: r egular rhythm HEART SOUNDS: S1 normal heart sound present and S2 normal heart sound present Neuro: SENSORIUM/ORIENTATION: Yes oriented to person, Yes oriented to place and Yes oriented to time Urinary Catheter Management: Mayer Latex: Cath Placed During This Visit: yes Reason for Continuing Indwelling Catheter: Other Urinary Catheter Date of Insertion: 01/28/25 Urinary Catheter Time of Insertion: 11:46 Data 01/30/25 05:08 01/30/25 05:08 Micro: Microbiology 01/26/25 08:44 Blood Culture - Preliminary Blood Enterococcus faecalis A&P Assessment and plan (1) Intermittent atrial fibrillation: (2) Presence of permanent cardiac pacemaker: (3) Port-A-Cath in place: (4) Endocarditis: Plan Plan was to perform ASPEN to further evaluate echogenic structure in the right atrium, however due to history of chemical injury to the throat with scarring, the risk of introducing the ASPEN probe to the throat is too high. Will discuss with infectious disease physician to determine next best option for evaluation, possibly cardiac MRI provided that her pacemaker lead is MRI conditional. PDMP PDMP Reviewed: Not Reviewed Coding Level of Care Code Acute Code for Chg Fwd Diagnoses Intermittent atrial fibrillation I48.0 Presence of permanent cardiac pacemaker Z95.0 Port-A-Cath in place Z95.828 Endocarditis I38
--- NOTE | 2025-01-30 13:42 | P.PN_ITS ---
Subjective 2 Subjective: No acute events overnight. States still having difficulty in breathing. Saturating more than 95% on baseline 3 L. Complaining of weeping from her lower limbs when she is hanging her leg down. Denies any nausea, vomiting otherwise. Medications: Reviewed: Yes Vitals/I&O/Wt Last Vital Signs Temp 97.5 F L 01/30/25 08:00 Pulse 100 01/30/25 13:41 Resp 24 H 01/30/25 13:41 BP 134/63 01/30/25 08:00 Pulse Ox 98 01/30/25 13:41 O2 Del Method Nasal Cannula 01/30/25 13:41 O2 Flow Rate 3 01/30/25 13:41 01/29/25 01/30/25 01/30/25 22:59 06:59 14:59 Intake Total 360 / 1080 720 / 1800 120 / 120 Output Total 850 / 850 950 / 1800 Balance -490 / 230 -230 / 0 120 / 120 Weight last 48 hrs Weight 53.116 kg Weight 49.612 kg Physical Exam 2 Narrative: General: Patient is awake. Frail-appearing. Very pleasant. Head: Temporal wasting. Neck: No JVD. Cardiovascular: No gallops. Pansystolic murmur at apex radiating to anterior axillary line 2/6, early diastolic murmur at aortic region radiating to apex. 2+ pitting edema bilateral lower extremities extending up to thighs, Lungs: Poor air movement overall. Tachypneic with talking. Bilateral rhonchi, conversational dyspnea, on nasal cannula. Skin: No jaundice. No rashes. Abdomen: Normal bowel sounds, abdomen soft and nontender. Extremities: No cyanosis or clubbing. Musculoskeletal: No swollen or erythematous joints. Neurological: Moves all 4 extremities. No myoclonus. Urinary Catheter Management: Mayer Latex: Cath Placed During This Visit: yes Reason for Continuing Indwelling Catheter: Other Urinary Catheter Date of Insertion: 01/28/25 Urinary Catheter Time of Insertion: 11:46 Data 01/30/25 05:08 01/30/25 05:08 Micro: Microbiology 01/26/25 08:44 Blood Culture - Preliminary Blood Enterococcus faecalis A&P Assessment and plan (1) Enterococcus faecalis infection: (2) Bacteremia: (3) Chronic diastolic heart failure: (4) Atrial fibrillation: Qualifiers: Atrial fibrillation type: persistent (not longstanding) Qualified Code(s): I48.19 - Other persistent atrial fibrillation (5) PVD (peripheral vascular disease): (6) Acquired hypothyroidism: (7) Metabolic alkalosis: (8) Dysuria: (9) Anemia: Qualifiers: Anemia type: iron deficiency Iron deficiency anemia type: inadequate dietary iron intake Qualified Code(s): D50.8 - Other iron deficiency anemias (10) Sepsis: (11) Infection due to Port-A-Cath: (12) Port-A-Cath in place: (13) Presence of permanent cardiac pacemaker: Plan Sepsis complicated by Enterococcus faecalis bacteremia: Persistent Enterococcus faecalis bacteremia. Repeat blood cultures from 01/27 so far negative. Appreciate echocardiogram results. Concern for echogenic structure in right atrium with proximity to tricuspid valve. Patient does have pacemaker. Cannot rule out pacemaker wire infection. Also has port in place. Cannot rule out port infection. Patient would benefit from port removal and ASPEN. Patient reluctant for the both as in the past she has been told there is a high risk of mortality for her with procedure. We discussed that she is chronically on 3 L and currently doing well on 3 L saturating more than 95%, hemodynamically has been stable with EF of 55 to 60%. She is cleared for port removal and ASPEN with low to moderate risk for a low risk procedure. She would like to discuss further with her son before making a decision. Will consult ID. Follow-up repeat cultures. Continue with IV vancomycin for now. Monitor trough levels between 15-20. Given need for port removal for now we will stop the Eliquis and switch to full dose Lovenox 1 mg/kg body weight Q12 hourly. Chronic hypoxic respiratory failure and currently on 3L oxygen supplementation. In setting of diastolic congestive heart failure. Continue supplemental oxygen support Acute on chronic diastolic HFpEF with exacerbation Appreciate echocardiogram. Continue with IV Bumex 1 mg Q12 hourly. Fluid restriction to less than 1500 cc. Strict input charting, daily weights. COPD with exacerbation -Continue prednisone 40 mg oral daily. Will plan to continue for 5 days overall. -Continue nebulized treatments. Add Pulmicort. Anemia: Chronic. Hemoglobin around 7.3. Denies any melena. Patient has a history of peripheral vascular disease, congestive heart failure target hemoglobin over 8. Will transfuse 1 unit of PRBC. Continue with Protonix twice daily. Will give 1 mg of IV Bumex along transfusion. Peripheral vascular disease -Continue cilostazol Acute on chronic kidney disease -MARTIN resolved, renal function at baseline; continue to monitor -Strict I's and O's -Daily weights -Renally dose meds Atrial fibrillation, unspecified type -Switch from apixaban 2.5 mg twice daily to Lovenox 1 mg/kg body weight Q12 hourly given concerns for port removal. Hypokalemia Hypomagnesia -Replace K and Mg as needed History of lung cancer History of thyroid cancer status post thyroidectomy Full code Cardiac diet Fluid restriction Protonix OPD prophylaxis Full dose Lovenox will be sufficient for DVT prophylaxis Care discussed in detail with patient and patient's son Ye Lombardi over the phone. Discussed the need for port removal and ASPEN given concerns of persistent Enterococcus bacteremia, echogenic mass on RA and near tricuspid valve. They are both agreeable for the procedure. All the questions were answered. Plan for the day: Repeat blood culture from 01/27 so far negative. Plan for removal of port and ASPEN at the same time on 01/31. C continue with anticoagulation on Lovenox 1 mg/kg body weight Q12 hourly for now. Patient did receive an peripheral IV line today morning. Will request for 1 more. Hemoglobin up to 8.3 after monitor blood transfusion. Somehow did not get the as needed dose of Bumex for blood transfusion yesterday. Increase Bumex to 1 mg Q8 hourly today. Add albumin every 8 hours for now given concerns for third spacing and hypoalbuminemia. Appreciate ID recommendations. Plan for possible challenge with cefazolin if able to arrange outpatient IV pumps through insurance. Case management alerted. Goal blood pressure less than 140/90 mmHg. Continue with metoprolol 25 mg twice daily. Uptitrate antihypertensive depending on the goal blood pressure. Physical therapy evaluation. Out of bed to chair. Encourage patient to ambulate more today. Start on Ambien 5 mg nightly as needed. PDMP PDMP Reviewed: Not Reviewed Attestations 2 Medical Necessity Statement*: Requires further hospitalization for management of persistent Enterococcus faecalis bacteremia while patient is awaiting ASPEN with concerns for endocarditis, port removal and set up of outpatient IV antibiotics. Diagnoses Enterococcus faecalis infection A49.8 Bacteremia R78.81 Chronic diastolic heart failure I50.32 Persistent atrial fibrillation I48.19 Atrial fibrillation type: persistent (not longstanding) PVD (peripheral vascular disease) I73.9 Acquired hypothyroidism E03.9 Metabolic alkalosis E87.3 Dysuria R30.0 Iron deficiency anemia secondary to inadequate dietary iron intake D50.8 Anemia type: iron deficiency Iron deficiency anemia type: inadequate dietary iron intake Sepsis A41.9 Infection due to Port-A-Cath T80.219A Port-A-Cath in place Z95.828 Presence of permanent cardiac pacemaker Z95.0
[2025-01-30] MEDS: albumin 25 G/100 ML BAG 60 G IV ×2 (15:07→21:28)
--- NOTE | 2025-01-30 16:45 | P.PN_ITS ---
Subjective 2 Subjective: Infectious disease progress note Port removal and ASPEN is planned for tomorrow. Afebrile, hemodynamically stable. Thus far culture from January 27, 2025 is without growth. Medications: Reviewed: Yes Vitals/I&O/Wt Last Vital Signs Temp 97.7 F 01/30/25 14:00 Pulse 110 H 01/30/25 14:00 Resp 20 H 01/30/25 14:00 BP 114/65 01/30/25 14:00 Pulse Ox 99 01/30/25 14:00 O2 Del Method Nasal Cannula 01/30/25 14:00 O2 Flow Rate 3 01/30/25 13:41 01/30/25 01/30/25 01/30/25 06:59 14:59 22:59 Intake Total 720 / 1800 360 / 360 Output Total 950 / 1800 Balance -230 / 0 360 / 360 Weight last 48 hrs Weight 53.116 kg Weight 49.612 kg Physical Exam 2 Narrative: General: No acute distress, AO x3, chronically ill appearing HEENT: PERRLA, pupils bilaterally equal and reactive, pallors not present Chest: Normal vesicular breath sounds, no added sounds, equal good air entry bilaterally CVS: S1-S2 regular, no murmurs, no tachycardia, no gallops, no rubs Abdomen: Soft, nontender, no organomegaly, bowel sounds present Neuro: No focal deficits, no facial deformity, AO x3, power 5/5 in all limbs Urinary Catheter Management: Mayer Latex: Cath Placed During This Visit: yes Reason for Continuing Indwelling Catheter: Other Urinary Catheter Date of Insertion: 01/28/25 Urinary Catheter Time of Insertion: 11:46 Data 01/30/25 05:08 01/30/25 05:08 Micro: Microbiology 01/26/25 08:44 Blood Culture - Preliminary Blood Enterococcus faecalis A&P Assessment and plan (1) Infection due to Port-A-Cath: (2) Endocarditis: (3) Enterococcus faecalis infection: Plan 74-year-old lady with multiple comorbidities as listed above, chronic Port-A-Cath due to poor IV access, 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 Urine culture additionally positive for Enterococcus faecalis. However given persistent positivity of blood cultures, echogenic structure as seen on echocardiogram, presence of Port-A-Cath, favor endovascular infection to be the most likely cause of persisting bacteremia. Infection with atypical organism, together with echogenic structure on echocardiogram concerning for infective endocarditis. Difficult to ascertain if Port-A-Cath infection may have led to endocarditis however again elevated at this time would recommend removal of Port-A-Cath and at least 6 weeks of IV antibiotics. Additionally recommend to obtain ASPEN to further characterize the echogenic structure seen on TTE. Patient has been on treatment with IV vancomycin since admission on January 24, 2025. Vancomycin trough appropriate at 19. Her chart notes a history of multiple drug allergies to amoxicillin, cefaclor, ciprofloxacin, metronidazole, penicillins, sulfa antibiotics, tetracyclines. When asked in detail about each of these allergies, patient states she does not recall which antibiotic she may be allergic to. She states that when she was a child she developed a rash to penicillin. However thinks she may have tolerated on Augmentin in the past without any issues. Review of her chart here from past admissions showed that she has received ceftriaxone and cefepime on multiple occasions in the past without any overt issues. I discussed with with her that for Enterococcus faecalis endocarditis, treatment of choice would be dual beta-lactam therapy with ampicillin and ceftriaxone. I suspect she will not truly be allergic to ceftriaxone as she has previously tolerated IV cephalosporins in the past. She does not recall if she is truly allergic to amoxicillin and other drug classes. She states that she has reacted to multiple antibiotics without knowing their exact drug class. She is willing to try ampicillin while in the hospital with close monitoring for development of any anaphylactic reactions while she gets this drug. She understands the high risk should she be truly having an IgE mediated allergic process however wishes to proceed with a trial at this time. Discussed with her about ampicillin infusion at home would need to be done either via a continuous infusion pump which would be ideal. If an infusion pump is not approved by her insurance, she would need to infuse the antibiotic every 4-6 hours at home. She states she would be unable to infuse antibiotic with this frequency as she does not have a lot of help around her house. She is unwilling to go to a prison facility to complete her IV antibiotic course. We will first try to ascertain if she will be able to get a continuous infusion pump for home use. If this is approved, we will proceed with a trial of ampicillin here in the hospital. Will administer ampicillin first and then add ceftriaxone 24 to 48 hours later. Would prefer dual beta-lactam therapy over ampicillin plus gentamicin as we do not have reliable way of monitoring gentamicin levels as outpatient, patient has reduced creatinine clearance at 47 currently, I am afraid with her multiple other comorbidities she is at a higher risk of renal toxicity with use of gentamicin. Plan: Continue IV vancomycin for now Switch to AMP + ceftriaxone once availability of continuous infusion pump is confirmed Trial of ampicillin with close clinical monitoring for any anaphylaxis. Patient understands the high risk of proceeding with this trial recommend to get ASPEN recommend port removal total 6 weeks abx duration NO PICC LINE UNTIL cx clear for at least 48 hrs blood cx persistent + for E.fecalis on 01/23, 01/24,01/25 and 01/26 thus far cx from 01/27 is negative to date, however last updated on 01/28. will follow will follow January 30, 2025 Continuous infusion pump availability has been confirmed for home use. Will proceed with trial of ampicillin was close clinical monitoring today. Ampicillin 2 g IV every 6 hours has been ordered based on creatinine clearance of 47. At the time of discharge will transition to ampicillin 8 g IV daily via continuous infusion if demonstrates tolerance to ampicillin in the hospital. Additionally will add ceftriaxone 2 g every 12 hours over the next 24 to 48 hours. Would not add both antibiotics at the same time as we are uncertain as to her allergies. Continue vancomycin in the interim until ceftriaxone can be added and tolerability of ampicillin has been established. Closely monitor kidney function ASPEN and port removal planned for tomorrow. Blood culture from January 27, 2025 is thus far without any growth. Will follow PDMP PDMP Reviewed: Not Reviewed Attestations 2 Medical Necessity Statement*: per admitting Coding Level of Care Code Acute Code for Chg Fwd High MDM includes number and complexity of problems actively addressed during encounter, amount and/or complexity of data reviewed/ordered and described risk of complication, morbidity or mortality of management as documented Diagnoses Infection due to Port-A-Cath T80.219A Endocarditis I38 Enterococcus faecalis infection A49.8
[2025-01-30] MEDS: ampicillin 2,000 MG in sodium chloride 0.9% (plus) 50 ML 200 MG IV (17:14)
[2025-01-30] MEDS: zolpidem 5 mg Tablet PO (21:28)
[2025-01-30] MEDS: ampicillin 2,000 MG in sodium chloride 0.9% (plus) 50 ML 100 MG IV (23:03)
[2025-01-31] VITALS (13 sets, daily range): BP systolic 106–145; BP diastolic 49–86; PULSE 65–100; RESP 15–24; TEMP 36.4–36.9; O2SAT 94–98
[2025-01-31] MEDS: VANCOMYCIN ADD-Vantage 750 MG in 0.9% NaCl ADD-Vantage 250 ML 250 MG IV (01:10)
[2025-01-31] MEDS: ipratropium-albuterol 3 mL Neb INHALATION ×3 (02:25→19:38)
[2025-01-31] MEDS: ampicillin 2,000 MG in sodium chloride 0.9% (plus) 50 ML 100 MG IV ×3 (05:31→23:52)
[2025-01-31] MEDS: albumin 25 G/100 ML BAG 60 G IV ×2 (06:14→22:15)
[2025-01-31] MEDS: bumetanide 0.25 mg/mL SDV 4 mL 1 MG IVP ×3 (06:14→23:51)
--- NOTE | 2025-01-31 08:02 | W.PM.OPSUD ---
Surgery/Procedure H&P Update DATE OF PROCEDURE: January 31, 2025 DATE H&P PERFORMED: 01/29/25 H&P UPDATE INFORMATION: I have reviewed H&P completed within last 30 days, I have examined patient prior to procedure, No changes to prior documentation and [place] is [place] [facility] [place] indicated PLANNED PROCEDURE: Operation Date: 01/31/25 12:00 Proposed Procedures p excision of port-a-cath(Not Applicable) - Fortunato Licona MD
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
[2025-01-31] MEDS: levothyroxine 50 mcg Tablet PO (09:18)
[2025-01-31] MEDS: roflumilast 500 mcg Tablet PO (09:18)
[2025-01-31] MEDS: predniSONE 20 mg Tablet 40 MG PO (09:18)
[2025-01-31] MEDS: pantoprazole DR 40 mg Tablet PO ×2 (09:18→17:33)
[2025-01-31] MEDS: atorvastatin 40 mg Tablet 20 MG PO (09:18)
[2025-01-31] MEDS: sennosides-docusate Tablet 1 TAB PO (09:18)
[2025-01-31] MEDS: metoprolol tartrate 25 mg Tablet PO (09:18)
[2025-01-31] MEDS: magnesium oxide 400 mg tablet PO (09:18)
[2025-01-31] MEDS: buprenorphine-naloxone 4-1 mg Film 2 EACH SUBLINGUAL ×3 (09:19→23:21)
[2025-01-31] MEDS: calcitriol 0.25 mcg Capsule 0.5 MCG PO (09:19)
[2025-01-31 10:22] LABS: Basophils % 0.1 %; Eosinophils % 0.1 %; Hematocrit 28.4 % (36-47); Lymphocytes # 0.7 10^3/uL (0.8-4.8); Lymphocytes % 6.4 %; Mean Corpuscular HGB Conc 30.3 g/dL (30-55); Mean Corpuscular Hemoglobin 24.8 pg (27-33); Mean Corpuscular Volume 81.8 fl (85-98); Mean Platelet Volume 9.7 fL (7.4-10.4); Monocytes # 0.7 10^3/uL (0.2-0.9); Monocytes % 6.3 %; Neutrophils # 9.73 10^3/uL (1.8-7.7); Neutrophils % 85.6 %; Nucleated Red Blood Cells % 0 %; Platelet Count 134 10^3/cmm (157-399); Red Blood Count 3.47 10^6/uL (3.85-5.65); White Blood Count 11.36 10^3/uL (3.29-11.43)
[2025-01-31 10:55] LABS: Slide Review Slide Review Perform
--- NOTE | 2025-01-31 11:25 | PC.NURSE ---
Pt taken down to pre op via genesis, accompanied by GABRIELE Cantu at 1125am.
--- NOTE | 2025-01-31 11:59 | ANES.PREANE2 ---
Pre-Anesthetic Assessment Height/Weight: Height 5 ft Weight 113 lb Temp Pulse Resp BP Pulse Ox O2 Del Method O2 Flow Rate 97.7 F 91 18 133/66 96 Nasal Cannula 2 01/31/25 07:37 01/31/25 08:59 01/31/25 08:52 01/31/25 07:37 01/31/25 08:52 01/31/25 08:52 01/31/25 08:52 Preop Diagnosis: Poor infection Operation Date: 01/31/25 12:00 Proposed Procedures p excision of port-a-cath(Not Applicable) - Fortunato Licona MD Was Beta Jasen taken within 24 hours: Yes Was Clonidine taken within 24 hours: N/A Social No alcohol and No tobacco Exam alert, oriented x 3, clear to auscultation bilaterally and regular rate & rhythm Airway Submandibular: within normal limits Cervical ROM: within normal limits Mallampati: Class III Comments: Comments: Edentulous Anesthetic Plan ASA status: 4 Anesthesia: MAC Other: Patient is a very sick individual with concern for port infection NPO since yesterday evening Patient has a preserved EF but does have a mass in the right atrium that cardiology is wanting to do a ASPEN for. However, patient is not a candidate due to esophageal stricture GERD on Protonix Chronic Eliquis, last taken 01/24/2025 Patient is on chronic Suboxone as well Labs reviewed, hemoglobin 8.6 this morning Plan for light MAC anesthesia with local via surgeon Medications/Allergies Home Medications ?Medication ?Instructions ?Recorded ?Confirmed ?Last Taken ?Type nitroglycerin 0.4 mg sublingual 0.4 mg sublingual Q5M PRN Chest 07/27/23 01/25/25 11/12/23 History tablet (Nitrostat) Pain magnesium oxide 400 mg PO DAILY 11/12/23 01/25/25 01/24/25 History albuterol sulfate 90 mcg/actuation 2 puff inhalation Q4H PRN 12/16/23 01/25/25 Unknown Rx aerosol inhaler shortness of breath or wheezing #6.7 grams buprenorphine 8 mg-naloxone 2 mg 1 film buccal TID 04/24/24 01/25/25 01/24/25 History sublingual film (Suboxone) potassium chloride 20 mEq/15 mL 15 meq (11.25 mL) PO BID #450 mL 07/20/24 01/25/2501/24/25 Rx oral liquid chlorpheniramine 4 5 ml PO Q6H PRN cold symptoms #160 08/03/24 01/25/25 Unknown Rx mg-phenylephrine 10 mg-DM 15 mg/5 mL mL oral liquid (Ed A-Hist DM) nicotine See Rx Instructions transdermal 08/08/24 01/25/25 Unknown Rx 21mg/24hr-14mg/24hr-7mg/24hr daily .COMPLEX #56 patches transderm patches,sequentl loratadine 10 mg tablet 10 mg PO DAILY #30 tabs 08/17/24 01/25/25 01/24/25 Rx apixaban 2.5 mg tablet (Eliquis) 2.5 mg PO BID #60 tabs 08/28/24 01/25/25 01/24/25 Rx roflumilast 500 mcg tablet 500 mcg PO DAILY #30 tabs 10/03/24 01/25/25 Unknown Rx diphenoxylate-atropine 2.5 1 tab PO BID PRN diarrhea #30 tabs 10/10/24 01/25/25 Unknown Rx mg-0.025 mg tablet (Lomotil) fluticasone propionate 50 2 spray intranasal DAILY sinus 11/02/24 01/25/25 Unknown Rx mcg/actuation nasal congestion #16 grams spray,suspension cilostazol 50 mg tablet 50 mg PO BID #90 tabs 11/07/24 01/25/25 Unknown Rx levothyroxine 50 mcg tablet 50 mcg PO DAILY thyroid #90 tabs 11/16/24 01/25/25 01/24/25 Rx montelukast 4 mg chewable tablet 8 mg (2 x 4 mg) PO DAILY #60 tabs 11/24/24 01/25/25 01/24/25 Rx pantoprazole 40 mg tablet,delayed 40 mg PO BID #90 tabs 11/28/24 01/25/25 01/24/25 Rx release metoprolol tartrate 25 mg tablet 25 mg PO BID #180 tabs 12/27/24 01/25/25 01/24/25 Rx mupirocin 2 % topical ointment 1 applic topical BID nares #22 01/04/25 01/25/25 Unknown Rx grams prednisone 20 mg tablet 40 mg (2 x 20 mg) PO DAILY 5 days 0201/25/25 01/24/25 Rx #10 tabs atorvastatin 20 mg tablet 20 mg PO DAILY 01/25/25 01/25/25 01/24/25 History baclofen 10 mg tablet 10 mg PO Q8H PRN muscle spasms 01/25/25 01/25/25 Unknown History bumetanide 1 mg tablet 1 mg PO BID PRN Edema 01/25/25 01/25/25 01/24/25 History calcitriol 0.5 mcg capsule 0.5 mcg PO DAILY 01/25/25 01/25/25 01/24/25 History ferrous sulfate 325 mg (65 mg 325 mg PO DAILY microcytic anemia 01/29/25 Unknown Rx iron) tablet,delayed release #30 tabs Allergies Allergy/AdvReac Type Severity Reaction Status Date / Time amiodarone Allergy Severe ADR-Confusi Verified 01/24/25 19:21 on 2-octyl cyanoacrylate Allergy ALGY-Rash Verified 01/24/25 19:21 adhesive tape Allergy ALGY-Rash Verified 01/24/25 19:21 amitriptyline Allergy ALGY-Hives Verified 01/24/25 19:21 amoxicillin Allergy ALGY-Hives Verified 01/24/25 19:21 cefaclor (From Ceclor) Allergy ALGY-Difficulty Verified 01/24/25 19:21 Breathing ciprofloxacin (From Cipro) Allergy ALGY-Difficulty Verified 01/24/25 19:21 Breathing gabapentin Allergy ALGY-Hives Verified 01/24/25 19:21 ibuprofen Allergy ALGY-Hives Verified 01/24/25 19:21 metronidazole (From Flagyl) Allergy ALGY-Hives Verified 01/24/25 19:21 Penicillins Allergy ALGY-Hives Verified 01/24/25 19:21 Sulfa (Sulfonamide Allergy ALGY-Hives Verified 01/24/25 19:21 Antibiotics) sulfamethoxazole (From Allergy ALGY-Difficulty Verified 01/24/25 19:21 Bactrim) Breathing tetracycline Allergy ALGY-Hives Verified 01/24/25 19:21 trimethoprim Allergy ALGY-Hives Verified 01/24/25 19:21 Current Medications Generic Name Dose Route Start Last Admin Trade Name Freq PRN Reason Stop Dose Admin Albuterol/Ipratropium 3 ml 01/25/25 08:00 01/31/25 08:50 Ipratropium-Albuterol 3 Ml Neb INHALATION 3 ml Q6H.RESP ALEXA Administration Atorvastatin Calcium 20 mg 01/30/25 09:00 01/31/25 09:18 Atorvastatin 40 Mg Tablet PO 20 mg DAILY ALEXA Administration Benzonatate 200 mg 01/25/25 11:22 01/27/25 18:39 Benzonatate 100 Mg Capsule PO 200 mg TID PRN Administration COUGH Bumetanide 1 mg 01/30/25 15:00 01/31/25 06:14 Bumetanide 0.25 Mg/Ml Sdv 4 Ml IVP 1 mg Q8H ALEXA Administration Buprenorphine/Naloxone 2 each 01/24/25 21:00 01/31/25 09:19 Buprenorphine-Naloxone 4-1 Mg Film SUBLINGUAL 2 each TID ALEXA Administration Calcitriol 0.5 mcg 01/25/25 09:00 01/31/25 09:19 Calcitriol 0.25 Mcg Capsule PO 0.5 mcg DAILY ALEXA Administration Cilostazol 50 mg 01/29/25 18:00 01/30/25 11:08 Cilostazol 100 Mg Tablet PO 50 mg BID ALEXA Administration Enoxaparin Sodium 50 mg 01/30/25 09:00 01/30/25 11:08 Enoxaparin 60 Mg/0.6 Ml Syringe SUBCUT 50 mg Q12H ALEXA Administration Guaifenesin 1,200 mg 01/25/25 11:22 01/27/25 09:24 Guaifenesin 600 Mg Tablet PO 1,200 mg BID PRN Administration congestion Vancomycin HCl 750 mg/ Sodium 250 mls @ 250 mls/hr 01/27/25 01:00 01/31/25 02:18 Chloride IV Infused Q24H ALEXA Infusion Albumin Human 25 g in 100 mls @ 60 mls/hr 01/30/25 14:00 01/31/25 07:54 Albumin IV Infused Q8H ALEXA Infusion Ampicillin Sodium 2,000 mg/ 50 mls @ 100 mls/hr 01/30/25 15:30 01/31/25 06:03 Sodium Chloride IV Infused Q6H ALEXA Infusion Protocol Lanolin 1 applic 01/25/25 20:33 01/26/25 02:27 Lanolin Oint 7 Gm TOPICAL 1 applic PRN PRN Administration DRYNESS Levothyroxine Sodium 50 mcg 01/25/25 09:00 01/31/25 09:18 Levothyroxine 50 Mcg Tablet PO 50 mcg DAILY ALEXA Administration Magnesium Oxide 400 mg 01/27/25 09:00 01/31/25 09:18 Magnesium Oxide 400 Mg Tablet PO 400 mg DAILY ALEXA Administration Metoprolol Tartrate 25 mg 01/25/25 09:00 01/31/25 09:18 Metoprolol Tartrate 25 Mg Tablet PO 25 mg BID ALEXA Administration Pantoprazole Sodium 40 mg 01/25/25 09:00 01/31/25 09:[address] 40 Mg Tablet PO 40 mg BID ALEXA Administration Prednisone 40 mg 01/27/25 09:25 01/31/25 09:18 Prednisone 20 Mg Tablet PO 02/01/25 09:24 40 mg DAILY ALEXA Administration Roflumilast 500 mcg 01/25/25 09:00 01/31/25 09:18 Roflumilast 500 Mcg Tablet PO 500 mcg DAILY ALEXA Administration Senna/Docusate Sodium 1 tab 01/25/25 09:00 01/31/25 09:18 Sennosides-Docusate Tablet PO 1 tab DAILY ALEXA Administration Zolpidem Tartrate 5 mg 01/30/25 13:54 01/30/25 21:28 Zolpidem 5 Mg Tablet PO 5 mg BEDTIME PRN Administration INSOMNIA PFSH Anesthesia Medical History Tobacco dependence Weakness Passed out Syncope Localized swelling of both lower legs Lung nodule Skin lesions Dyslipidemia (high LDL; low HDL) Acute exacerbation of chronic obstructive pulmonary disease Lump of right breast Lung cancer right lower lobe Left shoulder pain Avulsion fracture of left talus Skin tear of right upper arm without complication Orthopnea Sinus node dysfunction Sinus pause Bradycardia Orthostatic hypotension Hypovitaminosis D Seizure-like activity Syncopal episodes Nicotine dependence, cigarettes, with unspecified nicotine-induced disorders Sacral decubitus ulcer Chronic rhinosinusitis Infected epidermoid cyst Fall Cor pulmonale Cor pulmonale Leg pain, left Nicotine addiction Chronic respiratory failure with hypoxia Aortic cusp regurgitation Actinic keratosis due to exposure to sunlight Closed intertrochanteric fracture of right hip Smoking addiction Chronic pain Thyroid cancer SOB (shortness of breath) History of COPD CVA (cerebral vascular accident) Benign essential hypertension CAD (coronary artery disease) Hx of carotid stenosis Leg pain, medial Neck strain COPD (chronic obstructive pulmonary disease) Plantar porokeratosis, acquired Surgical History Status post cardiac pacemaker procedure History of bronchoscopy History of hip surgery Hx of hysterectomy History of bilateral carpal tunnel release History of lumpectomy History of rectal surgery History of ankle surgery Status post open reduction and internal fixation (ORIF) of fracture H/O thyroidectomy S/P hardware removal Spine History of back surgery Port-A-Cath in place Family History Brother Leukemia Diabetes Lung disease Mother Anesthesia complication CAD (coronary artery disease) Father Bleeding disorder Clotting disorder CAD (coronary artery disease) Cancer Stroke Sister CAD (coronary artery disease) Chronic kidney disease (CKD) Lung disease Family/Other Diabetes Stroke Grandfather Suicide Denies family history of Dementia Social History Smoking and tobacco/nicotine status: never used tobacco/nicotine Quit status (tobacco/nicotine): considering quitting Second hand smoke exposure: Yes Alcohol intake: never Substance/Drug Use: current Other substance/drug use details: Couple of months ago Gummies Adopted: No Lives independently: Yes Household members: none Housing: Apartment Marital status: / Current occupational status: disabled Do you think of yourself as: Straight/Heterosexual Current gender identity: Female Data Anesthesia 01/31/25 10:01 01/30/25 05:08 Short CBC 01/30/25 01/31/25 Range/Units 05:08 10:01 WBC 12.34 H 11.36 (3.29-11.43) 10^3/uL Hgb 8.40 L 8.60 L (11.27-16.99) g/dL Hct 29.1 L 28.4 L (36-47) % MCV 82.4 L 81.8 L (85-98) fl Plt Count 138 L 134 L (157-399) 10^3/cmm Neut % (Auto) 87.4 85.6 % Neut # (Auto) 10.79 H 9.73 H (1.8-7.7) 10^3/uL BMP 01/30/25 01/31/25 05:08 10:01 Sodium 134 L Cancelled Potassium 4.1 Cancelled Chloride 93 L Cancelled Carbon Dioxide 36 H Cancelled BUN 26 H Cancelled Creatinine 0.8 Cancelled Glucose 95 Cancelled Calcium 8.0 L Cancelled Liver Function 01/30/25 01/31/25 Range/Units 05:08 10:01 Total Bilirubin 0.8 Cancelled (0.15-1.2) mg/dL AST 18 Cancelled (0-32) U/L ALT 13 Cancelled (0-33) U/L Alkaline Phosphatase 137 H Cancelled (35-105) U/L Albumin 2.9 L Cancelled (3.5-5.2) g/dL Blood Bank 01/29/25 15:31 Blood Type A Positive Rho(D) Type Rh positive Antibody Screen Negative Microbiology 01/26/25 08:44 Blood Culture - Preliminary Blood Enterococcus faecalis Cardiac Studies: Echocardiogram 01/24/25 Echocardiogram Limited Views 11/08/23 Sestamibi Stress Test (Cardiology) 05/20/23
[2025-01-31 12:17] LABS: Alanine Aminotransferase 23 U/L (0-33); Albumin Level 4.2 g/dL (3.5-5.2); Alkaline Phosphatase 147 U/L (35-105); Anion Gap 12.8 (5-19); Aspartate Amino Transferase 46 U/L (0-32); Blood Urea Nitrogen 25 mg/dL (8-23); Calcium 8.3 mg/dL (8.5-10.5); Carbon Dioxide 38 mmol/L (22-29); Chloride 90 mmol/L (98-107); Globulin 2.6 g/dL (1.3-4.6); Glucose 95 mg/dL (65-115); Osmolality Calculated 288 mOsm/kg (285-295); Potassium 3.8 mmol/L (3.5-5.1); Sodium 137 mmol/L (136-145); Total Protein 6.8 g/dL (6.6-8.7)
--- NOTE | 2025-01-31 12:45 | SC_ITS ---
WS: [id number] C-arm [place] for CVA [id number] REASON FOR EXAM: excision of port-a-cath FINDINGS: Attempted removal of Port-A-Cath. Final images demonstrates the chemotherapy fusion port over the left chest and an intact trans right subclavian infusion catheter with the tip in the distal SVC. SC/C-arm [place] for CVA [id number] IMPRESSION: Right infusion port and left subclavian vein infusion catheter remain in place unchanged compared to 01/04/2025.
[2025-01-31] MEDS: lidocaine-epi 1% 20 mL INJ INJECTION (13:00)
[2025-01-31] MEDS: BUPivacaine 0.25% INJ 10 mL INJECTION (13:00)
[2025-01-31] MEDS: heparin, porcine 1,000 unit/mL INJ 10 mL 10000 UNIT IRRIGATION (13:16)
--- NOTE | 2025-01-31 13:18 | P.PN_ITS ---
Subjective 2 Subjective: No acute events overnight. Patient has remained hemodynamically stable and afebrile. Continue with plan at bedside. She is sitting up in chair. Denies any nausea, vomiting, headache. Awaiting port removal later in the day today. Medications: Reviewed: Yes Vitals/I&O/Wt Last Vital Signs Temp 98.1 F 01/31/25 12:02 Pulse 79 01/31/25 12:02 Resp 20 H 01/31/25 12:02 BP 124/62 01/31/25 12:02 Pulse Ox 98 01/31/25 12:02 O2 Del Method Room Air 01/31/25 12:02 O2 Flow Rate 2 01/31/25 08:52 01/30/25 01/31/25 01/31/25 22:59 06:59 14:59 Intake Total 750 / 1110 450 / 1560 100 / 100 Output Total 2100 / 2100 900 / 3000 1000 / 1000 Balance -1350 / -990 -450 / -1440 -900 / -900 Weight last 48 hrs Weight 51.256 kg Weight 53.116 kg Physical Exam 2 Narrative: General: Patient is awake. Frail-appearing. Very pleasant. Head: Temporal wasting. Neck: No JVD. Cardiovascular: No gallops. Pansystolic murmur at apex radiating to anterior axillary line 2/6, early diastolic murmur at aortic region radiating to apex. 2+ pitting edema bilateral lower extremities extending up to thighs, Lungs: Poor air movement overall. Tachypneic with talking. Bilateral rhonchi, conversational dyspnea, on nasal cannula. Skin: No jaundice. No rashes. Abdomen: Normal bowel sounds, abdomen soft and nontender. Extremities: No cyanosis or clubbing. Musculoskeletal: No swollen or erythematous joints. Neurological: Moves all 4 extremities. No myoclonus. Urinary Catheter Management: Mayer Latex: Cath Placed During This Visit: yes Reason for Continuing Indwelling Catheter: Other Urinary Catheter Date of Insertion: 01/28/25 Urinary Catheter Time of Insertion: 11:46 Data 01/31/25 10:01 01/31/25 11:53 Micro: Microbiology 01/26/25 08:44 Blood Culture - Preliminary Blood Enterococcus faecalis A&P Assessment and plan (1) Sepsis: (2) Infection due to Port-A-Cath: (3) Endocarditis: (4) Enterococcus faecalis infection: (5) Bacteremia: (6) Presence of permanent cardiac pacemaker: (7) Chronic diastolic heart failure: (8) Metabolic alkalosis: (9) Atrial fibrillation: Qualifiers: Atrial fibrillation type: persistent (not longstanding) Qualified Code(s): I48.19 - Other persistent atrial fibrillation (10) PVD (peripheral vascular disease): (11) Acquired hypothyroidism: (12) Dysuria: (13) Anemia: Qualifiers: Anemia type: iron deficiency Iron deficiency anemia type: inadequate dietary iron intake Qualified Code(s): D50.8 - Other iron deficiency anemias (14) Port-A-Cath in place: Plan Sepsis complicated by Enterococcus faecalis bacteremia: Persistent Enterococcus faecalis bacteremia. Repeat blood cultures from 01/27 so far negative. Appreciate echocardiogram results. Concern for echogenic structure in right atrium with proximity to tricuspid valve. Patient does have pacemaker. Cannot rule out pacemaker wire infection. Also has port in place. Cannot rule out port infection. Patient would benefit from port removal and ASPEN. Patient reluctant for the both as in the past she has been told there is a high risk of mortality for her with procedure. We discussed that she is chronically on 3 L and currently doing well on 3 L saturating more than 95%, hemodynamically has been stable with EF of 55 to 60%. She is cleared for port removal and ASPEN with low to moderate risk for a low risk procedure. She would like to discuss further with her son before making a decision. Will consult ID. Follow-up repeat cultures. Continue with IV vancomycin for now. Monitor trough levels between 15-20. Given need for port removal for now we will stop the Eliquis and switch to full dose Lovenox 1 mg/kg body weight Q12 hourly. Chronic hypoxic respiratory failure and currently on 3L oxygen supplementation. In setting of diastolic congestive heart failure. Continue supplemental oxygen support Acute on chronic diastolic HFpEF with exacerbation Appreciate echocardiogram. Continue with IV Bumex 1 mg Q12 hourly. Fluid restriction to less than 1500 cc. Strict input charting, daily weights. COPD with exacerbation -Continue prednisone 40 mg oral daily. Will plan to continue for 5 days overall. -Continue nebulized treatments. Add Pulmicort. Anemia: Chronic. Hemoglobin around 7.3. Denies any melena. Patient has a history of peripheral vascular disease, congestive heart failure target hemoglobin over 8. Will transfuse 1 unit of PRBC. Continue with Protonix twice daily. Will give 1 mg of IV Bumex along transfusion. Peripheral vascular disease -Continue cilostazol Acute on chronic kidney disease -MARTIN resolved, renal function at baseline; continue to monitor -Strict I's and O's -Daily weights -Renally dose meds Atrial fibrillation, unspecified type -Switch from apixaban 2.5 mg twice daily to Lovenox 1 mg/kg body weight Q12 hourly given concerns for port removal. Hypokalemia Hypomagnesia -Replace K and Mg as needed History of lung cancer History of thyroid cancer status post thyroidectomy Full code Cardiac diet Fluid restriction Protonix OPD prophylaxis Full dose Lovenox will be sufficient for DVT prophylaxis Care discussed in detail with patient and patient's son Ye Lombardi over the phone. Discussed the need for port removal and ASPEN given concerns of persistent Enterococcus bacteremia, echogenic mass on RA and near tricuspid valve. They are both agreeable for the procedure. All the questions were answered. Plan for the day: Repeat blood culture from 01/27 so far negative. Plan for port removal today. ASPEN deferred because of history of laryngeal injury from cancer in the past as per cardiology team. Appreciate ID recommendations. Patient tolerated ampicillin well. Will continue. Ampicillin removed from patient's allergy list. Trial of IV ceftriaxone today. Continue with IV albumin and Bumex every 8 hour. Add Diamox 250 mg daily given mild contraction alkalosis. Out of bed to chair. Blood pressure is better controlled. Continue with metoprolol 25 mg twice daily. Monitor blood cultures. If remain negative plan for PICC line placement. Will switch back to Eliquis after port removal from a.m. tomorrow. Continue with full dose Lovenox 1 mg/kg body weight Q2 hourly for now. PDMP PDMP Reviewed: Not Reviewed Attestations 2 Medical Necessity Statement*: Requires further hospitalization for management of Enterococcus bacteremia in setting of infective endocarditis, port infection while port is being removed, outpatient antibiotics are set up Diagnoses Sepsis A41.9 Infection due to Port-A-Cath T80.219A Endocarditis I38 Enterococcus faecalis infection A49.8 Bacteremia R78.81 Presence of permanent cardiac pacemaker Z95.0 Chronic diastolic heart failure I50.32 Metabolic alkalosis E87.3 Persistent atrial fibrillation I48.19 Atrial fibrillation type: persistent (not longstanding) PVD (peripheral vascular disease) I73.9 Acquired hypothyroidism E03.9 Dysuria R30.0 Iron deficiency anemia secondary to inadequate dietary iron intake D50.8 Anemia type: iron deficiency Iron deficiency anemia type: inadequate dietary iron intake Port-A-Cath in place Z95.828
--- NOTE | 2025-01-31 13:19 | ANE.PACU2 ---
Inpatient post-anesthesia follow up: Airway intact: Yes Vital signs: Temperature 98.1 F Pulse Rate 79 Respiratory Rate 20 Blood Pressure 124/62 Pulse Oximetry 98 Oxygen Delivery Me thod Room Air Oxygen Flow Rate 2 Fraction of Inspir ed Oxygen Hydration adequate: Yes Nausea and vomiting: No Pain level: 1 Mental status: Baseline
--- NOTE | 2025-01-31 13:45 | PM.OP ---
Operative Report Date of procedure: January 31, 2025 Pre-op diagnosis: Bacteremia Post-op diagnosis: Same Post-op findings: Port-A-Cath appears to be fixed either at the level of the bed notably side in the right subclavian vein or deeper near where the catheter meets the pacemaker lead, we were unable to remove it despite several attempts, significant dissection and mechanical traction Procedure done: Attempted removal of Port-A-Cath Specimens removed/disposition: None Surgeon: Fortunato Licona MD P 3 Armament/Ordn[employer] Ima Technician: JOSÉ OR Staff Estimated blood loss: 5 Brief History: This is a 74-year-old female with bacteremia and possible endocarditis who require Port-A-Cath removal due to her bacteremia. After discussion of all risk benefits documented my preop note with side to proceed. Procedure: Patient was brought into the OR, she was placed in a supine position. Sedation was given. The right upper chest was prepped and draped in usual sterile fashion. A timeout was conducted. Local anesthesia was infiltrated on top of the catheter. I then made o3 cm incision on top of the port. The incision was deepened into subcutaneous tissue and the port capsule was identified, the port capsule was opened and the port was delivered through the skin. I then proceeded to firmly pulled the port, it was at this moment that I realized that there was significant resistance from the catheter. Due to the patient body habitus and minimal amount of subcutaneous tissue I was able to dissect around the catheter from the chest incision all the way to the infra clavicular region. While there was a pseudocapsule around the catheter there was no obvious areas of adhesions. Once I completely dissected the catheter I proceeded to firmly pull it down to attempt removal from the vein, significant resistance was encountered, no movement of the catheter was achieved. I was concerned that with additional traction on the catheter may fracture. At this point I asked for fluoroscopy into the room. Under fluoroscopy guidance I was able to confirm that my dissection was all the way up to the infraclavicular region in the suspected area of insertion into the subclavian vein. With significant traction there was very minimal movement of the catheter, the distal tip of the catheter appeared to end right next to the pacemaker lead. at this time I determined that it was unsafe to continue this operation as continues attempts of removing the catheter can result in catheter fracture, dislodgment of the pacemaker lead or bleeding from the venotomy site. The catheter was returned to previous position and the wire was replaced in the pocket. The port was Hep-Lock and then I proceeded to obtain hemostasis and closed the wound in layers using #3-0 Vicryl for the subcutaneous tissue #4 Monocryl for the skin, Dermabond was applied and a compressive dressing was placed. At the end of the procedure all counts were correct the patient tolerated well the procedure and was transferred to PACU in stable condition. Patient will require evaluation by vascular surgery and probably discussion with cardiology before attempting removal of the catheter in the future.
--- NOTE | 2025-01-31 14:02 | P.PN_ITS ---
Subjective 2 Subjective: Infectious disease progress note. Patient's Port-A-Cath was unable to be removed today in spite of multiple attempts, significant dissection and mechanical traction. Report therefore continues to be in place. Additionally ASPEN was unable to be obtained due to history of reported laryngeal trauma and difficulty with passing the probe for cardiology. From blood culture from January 27, 2025 at this point negative to date. Medications: Reviewed: Yes Vitals/I&O/Wt Last Vital Signs Temp 97.6 F 01/31/25 13:36 Pulse 88 01/31/25 13:51 Resp 20 H 01/31/25 13:51 BP 107/55 01/31/25 13:51 Pulse Ox 94 01/31/25 13:51 O2 Del Method Nasal Cannula 01/31/25 13:51 O2 Flow Rate 3 01/31/25 13:51 01/30/25 01/31/25 01/31/25 22:59 06:59 14:59 Intake Total 750 / 1110 450 / 1560 150 / 150 Output Total 2100 / 2100 900 / 3000 1005 / 1005 Balance -1350 / -990 -450 / -1440 -855 / -855 Weight last 48 hrs Weight 51.256 kg Weight 53.116 kg Physical Exam 2 Narrative: General: No acute distress, AO x3 chronically ill-appearing HEENT: PERRLA, pupils bilaterally equal and reactive, pallors not present Chest: Normal vesicular breath sounds, no added sounds, equal good air entry bilaterally CVS: S1-S2 regular, no murmurs, no tachycardia, no gallops, no rubs Abdomen: Soft, nontender, no organomegaly, bowel sounds present Neuro: No focal deficits, no facial deformity, AO x3, power 5/5 in all limbs Urinary Catheter Management: Mayer Latex: Cath Placed During This Visit: yes Reason for Continuing Indwelling Catheter: Other Urinary Catheter Date of Insertion: 01/28/25 Urinary Catheter Time of Insertion: 11:46 Data 01/31/25 10:01 01/31/25 11:53 Micro: Microbiology 01/26/25 08:44 Blood Culture - Preliminary Blood Enterococcus faecalis NAME: Sakina Lombardi Debi LOC: [facility] #: [id number] AGE/SX: 74/F ROOM: [facility] R E01/24/[address]: Chet Bowman MD : 1950 BED: 1 D IS: FAX #: STATUS: ADM IN TLOC: Spec #: [id number] Marisabel: 01/27/25 Status: RES Req #: [id number] Recd: 01/27/[address]: Carter Cast MD Src: Blood SpDesc: Ordered: Bcult Procedure Result Verified Site Blood Culture Preliminary 01/28/25 NEGATIVE TO DATE Blood Culture Preliminary (changed) 01/27/25 SPECIMEN COLLECTED NAME: Maria CSakina Debi LOC: [facility] U #: [id number] AGE/SX: 74/F ROOM: 255 R E01/24/[address]: Chet Bowman MD : 1950 BED: 1 D IS: FAX #: STATUS: ADM IN TLOC: Spec #: [id number] Marisabel: 01/26/25 Status: RES Req #: [id number] Recd: 01/26/[address]: aCrter Cast MD Src: Blood SpDesc: Ordered: Bcult Procedure Result Verified Site Blood Culture Preliminary 01/28/25 3 OF 3 BOTTLES POSITIVE DIRECT GRAM STAIN: GRAM POSITIVE COCCI IN PAIRS AND CHAINS IDENTIFICATION BY DIRECT PCR RESULTS TO FOLLOW Organism 1 Enterococcus faecalis Growth 3 BOTTLES Gram Stain Charge Charge for Gram Stain CRITICAL RESULT YES/NO: YES CRITICAL CALLED BY: RIDGE TO AND READ BACK BY: PASCUAL DATE: 01/27/25 TIME: 1430 Blood Culture Preliminary (changed) 01/27/25 NEGATIVE TO DATE Blood Culture Preliminary (changed) 01/26/25 SPECIMEN COLLECTED NAME: Maria CSakina garrison Debi LOC: [facility] U #: [id number] AGE/SX: 74/F ROOM: 255 R E01/24/[address]: Chet Bowman MD : 1950 BED: 1 D IS: FAX #: STATUS: ADM IN TLOC: Spec #: [id number] Marisabel: 01/26/25 Status: RES Req #: [id number] Recd: 01/26/[address]: Carter Cast MD Src: Blood SpDesc: Ordered: Bcult Procedure Result Verified Site Blood Culture Preliminary 01/30/25 3 OF 3 BOTTLES POSITIVE DIRECT GRAM STAIN: GRAM POSITIVE COCCI IN CHAINS IDENTIFICATION BY DIRECT PCR RESULTS TO FOLLOW Organism 1 Enterococcus faecalis Growth 3 BOTTLES Gram Stain Charge Charge for Gram Stain CRITICAL RESULT YES/NO: YES CRITICAL CALLED BY: RIDGE TO AND READ BACK BY: PASCUAL DATE: 01/27/25 TIME: 1430 E faecalis M.I.C. RX --------- ------ * Ampicillin <=2 S * Linezolid 2 S * Penicillin 2 S Vancomycin 2 S Gentamicin Synergy Screen <=500 S Daptomycin 2 S Enterococcus faecalis: Gram Pos Combo 33-MScan Gentamicin Synergy Screen S Blood Culture Preliminary (changed) 01/28/25 3 OF 3 BOTTLES POSITIVE DIRECT GRAM STAIN: GRAM POSITIVE COCCI IN CHAINS IDENTIFICATION BY DIRECT PCR RESULTS TO FOLLOW Organism 1 Enterococcus faecalis Growth 3 BOTTLES Gram Stain Charge Charge for Gram Stain CRITICAL RESULT YES/NO: YES CRITICAL CALLED BY: RIDGE TO AND READ BACK BY: PASCUAL DATE: 01/27/25 TIME: 1430 Blood Culture Preliminary (changed) 01/27/25-1635 1 OF 3 BOTTLES POSITIVE, COLLECTED WITH PORT DIRECT GRAM STAIN: GRAM POSITIVE COCCI IN CHAINS IDENTIFICATION BY DIRECT PCR RESULTS TO FOLLOW Organism 1 Enterococcus faecalis Growth 1 BOTTLE Gram Stain Charge Charge for Gram Stain CRITICAL RESULT YES/NO: YES CRITICAL CALLED BY: RIDGE TO AND READ BACK BY: PASCUAL DATE: 01/27/25 TIME: 1430 Blood Culture Preliminary (changed) 01/27/25-1431 1 OF 3 BOTTLES POSITIVE DIRECT GRAM STAIN: GRAM POSITIVE COCCI IN CHAINS RESULTS TO FOLLOW Gram Stain Charge Charge for Gram Stain CRITICAL RESULT YES/NO: YES CRITICAL CALLED BY: RIDGE TO AND READ BACK BY: PASCUAL DATE: 01/27/25 TIME: 1430 NAME: Sakina Lombardi LOC: [facility] U #: [id number] AGE/SX: 74/F ROOM: [facility] R E01/24/[address]: Chet Bowman MD : 1950 BED: 1 D IS: FAX #: STATUS: ADM IN TLOC: Spec #: [id number] Marisabel: 01/25/25-1002 Status: COMP Req #: [id number] Recd: 01/25/25-[address]: Yessenia Mendez MD Src: Blood SpDesc: Ordered: Bcult Comments: LABEL IN BOX, NO NOTES ON ORDER, NOT COLLECTED W A.M. ROUNDS, WILL BE COLLECTED SOON POSSIBLE/HEATHER Procedure Result Verified Site Blood Culture Final 01/27/25-152 4 OF 4 BOTTLES POSITIVE DIRECT GRAM STAIN: GRAM POSITIVE COCCI IN CHAINS IDENTIFICATION BY DIRECT PCR SUSCEPTIBILITIES SET UP ON CULTURE [id number] Organism 1 Enterococcus faecalis Growth 4 BOTTLES Gram Stain Charge Charge for Gram Stain CRITICAL RESULT YES/NO: YES CRITICAL CALLED BY: KAJAL TO AND READ BACK BY: [email or web address] DATE: 01/25/25 TIME: 2324 Blood Culture Preliminary (changed) 01/26/25-1216 4 OF 4 BOTTLES POSITIVE DIRECT GRAM STAIN: GRAM POSITIVE COCCI IN CHAINS IDENTIFICATION BY DIRECT PCR SUSCEPTIBILITIES SET UP ON CULTURE [id number] Organism 1 Enterococcus faecalis Growth 4 BOTTLES Gram Stain Charge Charge for Gram Stain CRITICAL RESULT YES/NO: YES CRITICAL CALLED BY: KAJAL TO AND READ BACK BY: [email or web address] DATE: 01/25/25 TIME: 2324 Blood Culture Preliminary (changed) 01/25/25-2326 1 OF 2 BOTTLES POSITIVE DIRECT GRAM STAIN: GRAM POSITIVE COCCI IN CHAINS IDENTIFICATION BY DIRECT PCR RESULTS TO FOLLOW Organism 1 Enterococcus faecalis Growth 1 BOTTLE CRITICAL RESULT YES/NO: YES CRITICAL CALLED BY: KAJAL TO AND READ BACK BY: [email or web address] DATE: 01/25/25 TIME: 2324 NAME: Sakina Lombardi LOC: [facility] U #: [id number] AGE/SX: 74/F ROOM: 255 R E01/24/[address]: Chet Bowman MD : 1950 BED: 1 D IS: FAX #: STATUS: ADM IN TLOC: Spec #: [id number] Marisabel: 01/24/25-2118 Status: COMP Req #: [id number] Recd: 01/24/[address]: Yessenia Mendez MD Src: Blood SpDesc: Ordered: Bcult Procedure Result Verified Site Blood Culture Final 01/27/25-1528 4 OF 4 BOTTLES POSITIVE DIRECT GRAM STAIN: GRAM POSITIVE COCCI IN PAIRS AND CHAINS IDENTIFICATION BY DIRECT PCR SUSCEPTITIBITIES SET UP ON CULTURE [id number] Organism 1 Enterococcus faecalis Growth 4 BOTTLES Gram Stain Charge Charge for Gram Stain CRITICAL RESULT YES/NO: YES CRITICAL CALLED BY: RT TO AND READ BACK BY: EWELINA DATE: 01/25/25 TIME: 1058 Blood Culture Preliminary (changed) 01/26/25-1215 4 OF 4 BOTTLES POSITIVE DIRECT GRAM STAIN: GRAM POSITIVE COCCI IN PAIRS AND CHAINS IDENTIFICATION BY DIRECT PCR SUSCEPTITIBITIES SET UP ON CULTURE [id number] Organism 1 Enterococcus faecalis Growth 4 BOTTLES Gram Stain Charge Charge for Gram Stain CRITICAL RESULT YES/NO: YES CRITICAL CALLED BY: RT TO AND READ BACK BY: EWELINA DATE: 01/25/25 TIME: 1058 Blood Culture Preliminary (changed) 01/25/25-1304 2 OF 2 BOTTLES POSITIVE DIRECT GRAM STAIN: GRAM POSITIVE COCCI IN PAIRS AND CHAINS IDENTIFICATION BY DIRECT PCR RESULTS TO FOLLOW Organism 1 Enterococcus faecalis Growth 2 BOTTLES Gram Stain Charge Charge for Gram Stain CRITICAL RESULT YES/NO: YES CRITICAL CALLED BY: RT TO AND READ BACK BY: EWELINA DATE: 01/25/25 TIME: 1058 Blood Culture Preliminary (changed) 01/25/25-105 1 OF 2 BOTTLES POSITIVE DIRECT GRAM STAIN: GRAM POSITIVE COCCI IN PAIRS AND CHAINS IDENTIFICATION BY DIRECT PCR RESULTS TO FOLLOW Organism 1 Enterococcus faecalis Growth 1 BOTTLE Gram Stain Charge Charge for Gram Stain CRITICAL RESULT YES/NO: YES CRITICAL CALLED BY: RT TO AND READ BACK BY: [email or web address] DATE: 01/25/25 TIME: 1058 NAME: Sakina Lombardi LOC: [facility] U #: [id number] AGE/SX: 74/F ROOM: [facility] R E01/24/[address]: Chet Bowman MD : 1950 BED: 1 D IS: FAX #: STATUS: ADM IN TLOC: Spec #: [id number] Marisabel: 01/24/25 Status: COMP Req #: [id number] Recd: 01/24/[address]: Joseph De Los Santos MD Src: Urine Cath SpDesc: Ordered: UC Procedure Result Verified Site Urine Culture Final 01/27/25-1720 Organism 1 Enterococcus faecalis Calhan Count 20,000 - 30,000 CFU/ml DAY 2 E faecalis M.I.C. RX --------- ------ * Ampicillin <=2 S * Ciprofloxacin <=1 S * Levofloxacin 2 S * Linezolid 2 S * Nitrofurantoin <=32 S * Penicillin 2 S * Tetracycline >8 R Vancomycin 4 S Gentamicin Synergy Screen <=500 S Daptomycin 2 S Enterococcus faecalis: Gram Pos Combo 33-MScan Gentamicin Synergy Screen S Urine Culture Preliminary (changed) 01/26/25 Organism 1 Strep species, gamma-hemolytic Calhan Count 20,000 - 30,000 CFU/ml DAY 1, RESULTS TO FOLLOW NAME: Sakina Lombardi LOC: [facility] U #: [id number] AGE/SX: 74/F ROOM: R E01/23/[address]: Yessenia Mendez MD : 1950 BED: D IS: FAX #: STATUS: [facility] TLOC: Spec #: [id number] Marisabel: 01/23/25 Status: COMP Req #: [id number] Recd: 01/23/[address]: Yessenia Mendez MD Src: Blood SpDesc: Ordered: Bcult Procedure Result Verified Site Blood Culture Final 01/26/25 4 OF 4 BOTTLES POSITIVE DIRECT GRAM STAIN: GRAM POSITIVE COCCI IN CHAINS SENSITIVITIES ON [id number] Organism 1 Enterococcus faecalis Growth 4 BOTTLES Gram Stain Charge Charge for Gram Stain CRITICAL RESULT YES/NO: YES CRITICAL CALLED BY: RT TO AND READ BACK BY: AMOL DATE: 01/24/25 TIME: 904 Blood Culture Preliminary (changed) 01/24/25 NEGATIVE TO DATE Blood Culture Preliminary (changed) 01/23/25 SPECIMEN COLLECTED NAME: Delia Lombardiyce Debi LOC: [facility] U #: [id number] AGE/SX: 74/F ROOM: R E01/23/[address]: Yessenia Mendez MD : 1950 BED: D IS: FAX #: STATUS: DEP ER TLOC: Spec #: [id number] Marisabel: 01/23/25 Status: COMP Req #: [id number] Recd: 01/23/[address]: Yessenia Mendez MD Src: Blood SpDesc: Ordered: Bcult Procedure Result Verified Site Blood Culture Final 01/26/25-1717 4 OF 4 BOTTLES POSITIVE DIRECT GRAM STAIN: GRAM POSITIVE COCCI IN PAIRS AND CHAINS IDENTIFICATION BY DIRECT PCR Organism 1 Enterococcus faecalis Growth 4 BOTTLES Gram Stain Charge Charge for Gram Stain CRITICAL RESULT YES/NO: YES CRITICAL CALLED BY: RT TO AND READ BACK BY: [facility] DATE: 01/24/25 TIME: 904 E faecalis M.I.C. RX --------- ------ * Ampicillin <=2 S * Linezolid 2 S * Penicillin 2 S Vancomycin 4 S Gentamicin Synergy Screen <=500 S Daptomycin 2 S Enterococcus faecalis: Gram Pos Combo 33-MScan Gentamicin Synergy Screen S Blood Culture Preliminary (changed) 01/26/25-1711 4 OF 4 BOTTLES POSITIVE DIRECT GRAM STAIN: GRAM POSITIVE COCCI IN PAIRS AND CHAINS IDENTIFICATION BY DIRECT PCR RESULTS TO FOLLOW Organism 1 Enterococcus faecalis Growth 4 BOTTLES Gram Stain Charge Charge for Gram Stain CRITICAL RESULT YES/NO: YES CRITICAL CALLED BY: RT TO AND READ BACK BY: [facility] DATE: 01/24/25 TIME: 904 Blood Culture Preliminary (changed) 01/24/25 4 OF 4 BOTTLES POSITIVE DIRECT GRAM STAIN: GRAM POSITIVE COCCI IN PAIRS AND CHAINS IDENTIFICATION BY DIRECT PCR RESULTS TO FOLLOW Organism 1 Enterococcus faecalis Growth 3 BOTTLES Gram Stain Charge Charge for Gram Stain CRITICAL RESULT YES/NO: YES CRITICAL CALLED BY: RT TO AND READ BACK BY: [facility] DATE: 01/24/25 TIME: 904 Blood Culture Preliminary (changed) 01/24/25-904 3 OF 4 BOTTLES POSITIVE DIRECT GRAM STAIN: GRAM POSITIVE COCCI IN PAIRS AND CHAINS IDENTIFICATION BY DIRECT PCR RESULTS TO FOLLOW Organism 1 Enterococcus faecalis Growth 3 BOTTLES Gram Stain Charge Charge for Gram Stain CRITICAL RESULT YES/NO: YES CRITICAL CALLED BY: RT TO AND READ BACK BY: [facility] DATE: 01/24/25 TIME: 904 A&P Assessment and plan (1) Infection due to Port-A-Cath: (2) Endocarditis: (3) Enterococcus faecalis infection: Plan 74-year-old lady with multiple comorbidities as listed above, chronic Port-A-Cath due to poor IV access, 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 Urine culture additionally positive for Enterococcus faecalis. However given persistent positivity of blood cultures, echogenic structure as seen on echocardiogram, presence of Port-A-Cath, favor endovascular infection to be the most likely cause of persisting bacteremia. Infection with atypical organism, together with echogenic structure on echocardiogram concerning for infective endocarditis. Difficult to ascertain if Port-A-Cath infection may have led to endocarditis however again elevated at this time would recommend removal of Port-A-Cath and at least 6 weeks of IV antibiotics. Additionally recommend to obtain ASPEN to further characterize the echogenic structure seen on TTE. Patient has been on treatment with IV vancomycin since admission on January 24, 2025. Vancomycin trough appropriate at 19. Her chart notes a history of multiple drug allergies to amoxicillin, cefaclor, ciprofloxacin, metronidazole, penicillins, sulfa antibiotics, tetracyclines. When asked in detail about each of these allergies, patient states she does not recall which antibiotic she may be allergic to. She states that when she was a child she developed a rash to penicillin. However thinks she may have tolerated on Augmentin in the past without any issues. Review of her chart here from past admissions showed that she has received ceftriaxone and cefepime on multiple occasions in the past without any overt issues. I discussed with with her that for Enterococcus faecalis endocarditis, treatment of choice would be dual beta-lactam therapy with ampicillin and ceftriaxone. I suspect she will not truly be allergic to ceftriaxone as she has previously tolerated IV cephalosporins in the past. She does not recall if she is truly allergic to amoxicillin and other drug classes. She states that she has reacted to multiple antibiotics without knowing their exact drug class. She is willing to try ampicillin while in the hospital with close monitoring for development of any anaphylactic reactions while she gets this drug. She understands the high risk should she be truly having an IgE mediated allergic process however wishes to proceed with a trial at this time. Discussed with her about ampicillin infusion at home would need to be done either via a continuous infusion pump which would be ideal. If an infusion pump is not approved by her insurance, she would need to infuse the antibiotic every 4-6 hours at home. She states she would be unable to infuse antibiotic with this frequency as she does not have a lot of help around her house. She is unwilling to go to a retirement facility to complete her IV antibiotic course. We will first try to ascertain if she will be able to get a continuous infusion pump for home use. If this is approved, we will proceed with a trial of ampicillin here in the hospital. Will administer ampicillin first and then add ceftriaxone 24 to 48 hours later. Would prefer dual beta-lactam therapy over ampicillin plus gentamicin as we do not have reliable way of monitoring gentamicin levels as outpatient, patient has reduced creatinine clearance at 47 currently, I am afraid with her multiple other comorbidities she is at a higher risk of renal toxicity with use of gentamicin. Plan: Continue IV vancomycin for now Switch to AMP + ceftriaxone once availability of continuous infusion pump is confirmed Trial of ampicillin with close clinical monitoring for any anaphylaxis. Patient understands the high risk of proceeding with this trial recommend to get ASPEN recommend port removal total 6 weeks abx duration NO PICC LINE UNTIL cx clear for at least 48 hrs blood cx persistent + for E.fecalis on 01/23, 01/24,01/25 and 01/26 thus far cx from 01/27 is negative to date, however last updated on 01/28. will follow will follow January 30, 2025 Continuous infusion pump availability has been confirmed for home use. Will proceed with trial of ampicillin was close clinical monitoring today. Ampicillin 2 g IV every 6 hours has been ordered based on creatinine clearance of 47. At the time of discharge will transition to ampicillin 8 g IV daily via continuous infusion if demonstrates tolerance to ampicillin in the hospital. Additionally will add ceftriaxone 2 g every 12 hours over the next 24 to 48 hours. Would not add both antibiotics at the same time as we are uncertain as to her allergies. Continue vancomycin in the interim until ceftriaxone can be added and tolerability of ampicillin has been established. Closely monitor kidney function ASPEN and port removal planned for tomorrow. Blood culture from January 27, 2025 is thus far without any growth. January 31, 2025 Patient tolerated ampicillin which was introduced yesterday. Review of JAN shows she has had 3 doses, yesterday at 5:30 PM, then at midnight and then at 6 AM this morning. Kidney function has not consistently shown improvement. Calculated creatinine clearance is at 50. Will increase the dose of ampicillin to 2 g every 4 hours. At the time of discharge this will be transition to a continuous infusion pump for home usage. Additionally discontinue vancomycin and add ceftriaxone today. Review of chart shows patient has previously tolerated ceftriaxone and cefepime, anticipate her tolerating addition of ceftriaxone. Unfortunately her Port-A-Cath was unable to be removed and ASPEN was unable to be performed. Discussed with patient that with Port-A-Cath remaining in place, there does remain a risk of antibiotic failure. Currently the best we can hope in this situation is to treat through the port now that cultures are negative as of 01/27 and then aim for chronic suppression thereafter. Abx total duration of treatment to be for 6 weeks (01/27-03/10). Once a week port check and dressing changes. Weekly labs including CBC, creat, LFT to be faxed to ID clinic. will follow PDMP PDMP Reviewed: Not Reviewed Attestations 2 Medical Necessity Statement*: per admitting Coding Level of Care Code Acute Code for Chg Fwd High MDM includes number and complexity of problems actively addressed during encounter, amount and/or complexity of data reviewed/ordered and described risk of complication, morbidity or mortality of management as documented Diagnoses Infection due to Port-A-Cath T80.219A Endocarditis I38 Enterococcus faecalis infection A49.8
--- NOTE | 2025-01-31 14:17 | PC.NURSE ---
1352 - accepted into room 255-1 with Charles at side - pt in no distress upon exiting room - BP 105/67 - pulse 86 - 02 98% 3LNC - temp 97.6
--- NOTE | 2025-01-31 14:32 | PC.NURSE ---
Pt safely [facility] to med surg room 255-1 from PACU at 1408, accompanied by GABRIELE Queen. This nurse assumed care of pt again at this time.
[2025-01-31] MEDS: cefTRIAXone 2,000 mg SDV 2000 MG IVP (16:21)
[2025-01-31] MEDS: acetaZOLAMIDE 250 mg Tablet PO (16:26)
--- NOTE | 2025-01-31 17:07 | XRR_ITS ---
PROCEDURE INFORMATION: Exam: XR Chest Exam date and time: 01/31/2025 5:14 PM Age: 74 years old Clinical indication: Cough and other: Spitting up blood; Prior surgery; Surgery date: 6+ months; Surgery type: Port/pacer; Additional info: R/O aspiration/ coughing up blood TECHNIQUE: Imaging protocol: Radiologic exam of the chest. Views: 1 view. COMPARISON: CR (CHEST, ) 01/24/2025 8:19 PM FINDINGS: Tubes, catheters and devices: Right-sided MediPort with its distal tip in the right atrium. Single lead cardiac pacemaker device overlying the left chest wall. Lungs: Right lung base opacities reflecting consolidation and/or additional infiltrates. Redemonstration of scattered bilateral coarsened interstitial opacities. Pleural spaces: Right-sided moderate small pleural effusion. No sizable pneumothorax. Heart/Mediastinum: Unremarkable. No cardiomegaly. Bones/joints: Unremarkable. XR/XR chest 1V portable [id number] IMPRESSION: As above.
[2025-01-31] MEDS: lidocaine 2% viscous 15 ML, diphenhydrAMINE oral liq 37.5 MG, aluminum-mag hydrox-simet... MUCOUS MEM (17:32)
[2025-01-31] MEDS: cilostazol 100 mg Tablet 50 MG PO (17:33)
[2025-01-31] MEDS: cetylpyridinium Lozenge 1 EACH MUCOUS MEM (17:33)
[2025-01-31] MEDS: zolpidem 5 mg Tablet PO (23:51)
--- NOTE | 2025-01-31 23:59 | PC.NURSE ---
Patient has been educated on risk of aspiration if they continue to drink thin liquids. Patient stated she did not choke of food or drink but on spit. This nurse will continue to monitor.
[2025-02-01] VITALS (11 sets, daily range): BP systolic 133–162; BP diastolic 63–87; PULSE 68–118; RESP 16–20; TEMP 36.4–37; O2SAT 92–98
[2025-02-01] MEDS: ipratropium-albuterol 3 mL Neb INHALATION ×4 (02:21→19:13)
[2025-02-01] MEDS: cefTRIAXone 2,000 mg SDV 2000 MG IVP ×2 (03:22→14:02)
[2025-02-01] MEDS: ampicillin 2,000 MG in sodium chloride 0.9% (plus) 50 ML 100 MG IV ×5 (03:22→22:16)
[2025-02-01 05:19] LABS: Bacillus cereus group Not Detected (NOT DETECT); Bacillus subtillis group Not Detected (NOT DETECT); Corynebacterium Not Detected (NOT DETECT); Cutibacterium acnes (P.acnes) Not Detected (NOT DETECT); Enterococcus Detected (NOT DETECT); Enterococcus faecalis Detected (NOT DETECT); Enterococcus faecium Not Detected (NOT DETECT); Lactobacillus species Not Detected (NOT DETECT); Listeria Not Detected (NOT DETECT); Listeria monocytogenes Not Detected (NOT DETECT); Micrococcus Not Detected (NOT DETECT); Pan Candida Not Detected (NOT DETECT); Pan Gram-Negative Not Detected (NOT DETECT); Staphylococcus epidermidis Not Detected (NOT DETECT); Staphylococcus lugdunensis Not Detected (NOT DETECT); Staphylococcus species Not Detected (NOT DETECT); Streptococcus agalactiae Not Detected (NOT DETECT); Streptococcus anginosus group Not Detected (NOT DETECT); Streptococcus pneumoniae Not Detected (NOT DETECT); Streptococcus pyogenes Not Detected (NOT DETECT); Streptococcus species Not Detected (NOT DETECT); vanA Not Detected ` (NOT DETECT); vanC Not Detected (NOT DETECT)
[2025-02-01 05:38] LABS: Basophils % 0.1 %; Eosinophils % 0.1 %; Hematocrit 28.5 % (36-47); Lymphocytes # 0.6 10^3/uL (0.8-4.8); Lymphocytes % 5.7 %; Mean Corpuscular HGB Conc 28.4 g/dL (30-55); Mean Corpuscular Hemoglobin 23.7 pg (27-33); Mean Corpuscular Volume 83.3 fl (85-98); Mean Platelet Volume 9.4 fL (7.4-10.4); Monocytes # 0.8 10^3/uL (0.2-0.9); Neutrophils # 8.65 10^3/uL (1.8-7.7); Neutrophils % 84.4 %; Nucleated Red Blood Cells % 0 %; Platelet Count 146 10^3/cmm (157-399); Red Blood Count 3.42 10^6/uL (3.85-5.65); Red Cell Distribution Width 17.5 % (12.1-15.1); White Blood Count 10.24 10^3/uL (3.29-11.43)
[2025-02-01] MEDS: bumetanide 0.25 mg/mL SDV 4 mL 1 MG IVP ×2 (06:07→18:11)
[2025-02-01 06:11] LABS: Alanine Aminotransferase 24 U/L (0-33); Albumin Level 4.3 g/dL (3.5-5.2); Alkaline Phosphatase 138 U/L (35-105); Anion Gap 16.3 (5-19); Aspartate Amino Transferase 28 U/L (0-32); Blood Urea Nitrogen 28 mg/dL (8-23); Calcium 8.4 mg/dL (8.5-10.5); Carbon Dioxide 37 mmol/L (22-29); Chloride 91 mmol/L (98-107); Globulin 2.7 g/dL (1.3-4.6); Glucose 89 mg/dL (65-115); Osmolality Calculated 297 mOsm/kg (285-295); Potassium 3.3 mmol/L (3.5-5.1); Sodium 141 mmol/L (136-145); Total Bilirubin 0.4 mg/dL (0.15-1.2)
[2025-02-01] MEDS: albumin 25 G/100 ML BAG 60 G IV ×2 (06:42→18:11)
--- NOTE | 2025-02-01 10:00 | P.PN_ITS ---
<Statement entered by Tai Ramirez M.D - 02/02/25 22:25> Patient was cared for in conjunction with an advanced practice practitioner. I personally reviewed the chart and all pertinent data including imaging, telemetry, and laboratory results. I discussed the patient in detail with the advanced practice practitioner. Please see their note for complete progress note, results and agreed upon plan of care for the patient. Because of history of chemical injury to throat and history of scarring we will not proceed with ASPEN. Current plan is to continue antibiotic therapy and monitor progress. Please call with questions. Subjective 2 Subjective: She is sitting up in the chair this morning. Port removal was unsuccessful. She is a bit panicked currently as she is having a nosebleed. She reports a nosebleed last night which she had difficulty stopping. No chest pain or worsening shortness of breath. WBC 10.2 today. Vitals/I&O/Wt Last Vital Signs Temp 98.0 F 02/01/25 07:22 Pulse 91 02/01/25 15:39 Resp 20 H 02/01/25 14:11 BP 135/65 02/01/25 15:39 Pulse Ox 98 02/01/25 15:39 O2 Del Method Nasal Cannula 02/01/25 15:39 O2 Flow Rate 3 02/01/25 14:11 02/01/25 02/01/25 02/01/25 06:59 14:59 22:59 Intake Total 250 / 1050 730 / 730 Output Total 1000 / 2705 1000 / 1000 Balance -750 / -1655 -270 / -270 Weight last 48 hrs Weight 109 lb 9.6 oz Weight 113 lb Physical Exam 2 Const: COMMON NORMALS: no acute distress and patient oriented x3 GENERAL APPEARANCE: cooperative and comfortable ORIENTATION/CONSCIOUSNESS: Yes awake, Yes oriented to person, Yes oriented to place and Yes oriented to time Chest: COMMONS NORMALS: normal inspection of the chest and normal palpation of entire chest wall CHEST: Yes Symmetrical chest wall rise Resp: COMMON NORMALS: normal respiratory effort, No retractions and No use of accessory muscles EFFORT & INSPECTION: Yes symmetric chest movement A USCULTATION: rhonchi throughout (Scattered) Cardio: COMMON NORMALS: regular rate, regular rhythm, S1 normal heart sound present, S2 normal heart sound present, No gallops present (Cardio), No clicks present (Cardio), No murmurs present (Cardio) and No rub (Cardio) RATE: r egular rate RHYTHM: regular rhythm HEART SOUNDS: S1 normal heart sound present and S2 normal heart sound present PERIPHERAL PULSES: radial pulses present Extremity: COMMON NORMALS: no pedal edema Neuro: COMMON NORMALS: patient oriented x3 and moves all extremities S ENSORIUM/ORIENTATION: Yes oriented to person, Yes oriented to place and Yes oriented to time Urinary Catheter Management: Mayer Latex: Cath Placed During This Visit: yes Reason for Continuing Indwelling Catheter: Other Urinary Catheter Date of Insertion: 01/28/25 Urinary Catheter Time of Insertion: 11:46 Data 02/02/25 04:17 02/02/25 04:17 Micro: Microbiology 02/01/25 15:38 Blood Culture - Preliminary Blood SPECIMEN COLLECTED 02/01/25 15:38 Blood Culture - Preliminary Blood SPECIMEN COLLECTED 01/31/25 10:00 Gram Stain - Final Sputum - Expectorated Sputum Sputum Culture - Preliminary Gram Negative Rods 01/27/25 18:36 Blood Culture - Preliminary Blood Enterococcus faecalis A&P Assessment and plan (1) Endocarditis: (2) Port-A-Cath in place: (3) Presence of permanent cardiac pacemaker: (4) Atrial fibrillation: Qualifiers: Atrial fibrillation type: persistent (not longstanding) Qualified Code(s): I48.19 - Other persistent atrial fibrillation (5) CAD (coronary artery disease): Qualifiers: Associated angina: with other forms of angina Coronary Disease- Associated Artery/Lesion type: [place] artery [place] vs. transplanted heart: n ative heart Qualified Code(s): I25.118 - Atherosclerotic heart disease of [place] coronary artery with other forms of angina pectoris Plan She remains in sinus rhythm. Plan is to continue IV antibiotics for 6 weeks. No further plans for endocarditis workup. Cardiology will sign off. Will check INR due to nosebleed. PDMP PDMP Reviewed: Not Reviewed Attestations 2 Medical Necessity Statement*: Per hospitalist Coding Level of Care Code Acute Code for [facility] Diagnoses Endocarditis I38 Port-A-Cath in place Z95.828 Presence of permanent cardiac pacemaker Z95.0 Persistent atrial fibrillation I48.19 Atrial fibrillation type: persistent (not longstanding) Coronary artery disease involving [place] coronary artery of [place] heart with other form of angina pectoris I25.118 Associated angina: with other forms of angina Coronary Disease-Associated Artery/Lesion type: [place] artery [place] vs. transplanted heart: [place]ross heart
[2025-02-01] MEDS: roflumilast 500 mcg Tablet PO (10:19)
[2025-02-01] MEDS: calcitriol 0.25 mcg Capsule 0.5 MCG PO (10:20)
[2025-02-01] MEDS: levothyroxine 50 mcg Tablet PO (10:20)
[2025-02-01] MEDS: metoprolol tartrate 25 mg Tablet PO ×2 (10:20→18:11)
[2025-02-01] MEDS: magnesium oxide 400 mg tablet PO (10:23)
[2025-02-01] MEDS: sennosides-docusate Tablet 1 TAB PO (10:23)
[2025-02-01] MEDS: acetaZOLAMIDE 250 mg Tablet PO (10:23)
[2025-02-01] MEDS: predniSONE 20 mg Tablet 40 MG PO (10:23)
[2025-02-01] MEDS: pantoprazole DR 40 mg Tablet PO ×2 (10:24→18:11)
[2025-02-01] MEDS: buprenorphine-naloxone 4-1 mg Film 2 EACH SUBLINGUAL ×3 (10:32→22:15)
[2025-02-01] MEDS: atorvastatin 40 mg Tablet 20 MG PO (10:32)
[2025-02-01 10:50] LABS: Partial Thromboplastin Time 30.4 SECONDS (23.9-36.7)
[2025-02-01] MEDS: magnesium sulfate premix 2 GM/50 ML PIGGYBACK IV (11:27)
[2025-02-01] MEDS: potassium chloride oral liq 20 mEq/15 mL UDC 40 MEQ PO (11:27)
--- NOTE | 2025-02-01 13:02 | P.PN_ITS ---
Subjective 2 Subjective: No acute events overnight. Today morning patient seen sitting up in chair. States she is feeling better. Denies any nausea, vomiting, headache. States her sore throat is improved. Able to tolerate diet. Asking if can be advanced to regular diet today. Continues to have expectoration. Medications: Reviewed: Yes Vitals/I&O/Wt Last Vital Signs Temp 98.0 F 02/01/25 07:22 Pulse 118 H 02/01/25 10:16 Resp 18 02/01/25 10:16 BP 133/82 02/01/25 10:16 Pulse Ox 95 02/01/25 09:14 O2 Del Method Nasal Cannula 02/01/25 09:14 O2 Flow Rate 3 02/01/25 09:14 01/31/25 02/01/25 02/01/25 22:59 06:59 14:59 Intake Total 650 / 800 250 / 1050 630 / 630 Output Total 700 / 1705 1000 / 2705 1000 / 1000 Balance -50 / -905 -750 / -1655 -370 / -370 Weight last 48 hrs Weight 49.714 kg Weight 51.256 kg Physical Exam 2 Narrative: General: Patient is awake. Frail-appearing. Very pleasant. Head: Temporal wasting. Neck: No JVD. Cardiovascular: No gallops. Pansystolic murmur at apex radiating to anterior axillary line 2/6, early diastolic murmur at aortic region radiating to apex. 2+ pitting edema bilateral lower extremities extending up to thighs, Lungs: Poor air movement overall. Tachypneic with talking. Bilateral rhonchi, conversational dyspnea, on nasal cannula. Skin: No jaundice. No rashes. Abdomen: Normal bowel sounds, abdomen soft and nontender. Extremities: No cyanosis or clubbing. Musculoskeletal: No swollen or erythematous joints. Neurological: Moves all 4 extremities. No myoclonus. Urinary Catheter Management: Mayer Latex: Cath Placed During This Visit: yes Reason for Continuing Indwelling Catheter: Other Urinary Catheter Date of Insertion: 01/28/25 Urinary Catheter Time of Insertion: 11:46 Data 02/01/25 05:05 02/01/25 05:05 Micro: Microbiology 01/31/25 10:00 Gram Stain - Final Sputum - Expectorated Sputum Sputum Culture - Preliminary Gram Negative Rods 01/27/25 18:36 Blood Culture - Preliminary Blood Enterococcus faecalis A&P Assessment and plan (1) Sepsis: (2) Infection due to Port-A-Cath: (3) Endocarditis: (4) Enterococcus faecalis infection: (5) Bacteremia: (6) Presence of permanent cardiac pacemaker: (7) Chronic diastolic heart failure: (8) Metabolic alkalosis: (9) Atrial fibrillation: Qualifiers: Atrial fibrillation type: persistent (not longstanding) Qualified Code(s): I48.19 - Other persistent atrial fibrillation (10) PVD (peripheral vascular disease): (11) Acquired hypothyroidism: (12) Dysuria: (13) Anemia: Qualifiers: Anemia type: iron deficiency Iron deficiency anemia type: inadequate dietary iron intake Qualified Code(s): D50.8 - Other iron deficiency anemias (14) Port-A-Cath in place: Plan Sepsis complicated by Enterococcus faecalis bacteremia: Persistent Enterococcus faecalis bacteremia. Repeat blood cultures from 01/27 so far negative. Appreciate echocardiogram results. Concern for echogenic structure in right atrium with proximity to tricuspid valve. Patient does have pacemaker. Cannot rule out pacemaker wire infection. Also has port in place. Cannot rule out port infection. Patient would benefit from port removal and ASPEN. Patient reluctant for the both as in the past she has been told there is a high risk of mortality for her with procedure. We discussed that she is chronically on 3 L and currently doing well on 3 L saturating more than 95%, hemodynamically has been stable with EF of 55 to 60%. She is cleared for port removal and ASPEN with low to moderate risk for a low risk procedure. She would like to discuss further with her son before making a decision. Will consult ID. Follow-up repeat cultures. Continue with IV vancomycin for now. Monitor trough levels between 15-20. Given need for port removal for now we will stop the Eliquis and switch to full dose Lovenox 1 mg/kg body weight Q12 hourly. Chronic hypoxic respiratory failure and currently on 3L oxygen supplementation. In setting of diastolic congestive heart failure. Continue supplemental oxygen support Acute on chronic diastolic HFpEF with exacerbation Appreciate echocardiogram. Continue with IV Bumex 1 mg Q12 hourly. Fluid restriction to less than 1500 cc. Strict input charting, daily weights. COPD with exacerbation -Continue prednisone 40 mg oral daily. Will plan to continue for 5 days overall. -Continue nebulized treatments. Add Pulmicort. Anemia: Chronic. Hemoglobin around 7.3. Denies any melena. Patient has a history of peripheral vascular disease, congestive heart failure target hemoglobin over 8. Will transfuse 1 unit of PRBC. Continue with Protonix twice daily. Will give 1 mg of IV Bumex along transfusion. Peripheral vascular disease -Continue cilostazol Acute on chronic kidney disease -MARTIN resolved, renal function at baseline; continue to monitor -Strict I's and O's -Daily weights -Renally dose meds Atrial fibrillation, unspecified type -Switch from apixaban 2.5 mg twice daily to Lovenox 1 mg/kg body weight Q12 hourly given concerns for port removal. Hypokalemia Hypomagnesia -Replace K and Mg as needed History of lung cancer History of thyroid cancer status post thyroidectomy Full code Cardiac diet Fluid restriction Protonix OPD prophylaxis Full dose Lovenox will be sufficient for DVT prophylaxis Care discussed in detail with patient and patient's son Ye Lombardi over the phone. Discussed the need for port removal and ASPEN given concerns of persistent Enterococcus bacteremia, echogenic mass on RA and near tricuspid valve. They are both agreeable for the procedure. All the questions were answered. Plan for the day: Repeat blood culture from 01/27 so far negative. Port could not be removed on 01/31. Appreciate ID recommendations. Continue with high-dose ampicillin. Patient tolerated ceftriaxone well. Vancomycin discontinued. Plan to discharge on IV ampicillin and ceftriaxone for next 6 weeks. Plan to reaccess port in evening which will be 24 hours after trial of port removal yesterday. If able to access the port will plan to continue IV antibiotics as an outpatient through port otherwise will plan for PICC line placement. Appreciate sputum culture. Growing gram-negative rods. For now we will continue with IV ceftriaxone. Add Robitussin. Continue with IV Bumex 1 mg Q8 hourly, Diamox to 50 mg oral daily. Continue with IV albumin every 12 hours for now. Monitor renal functions. Monitor for contraction alkalosis. Patient having occasional epistaxis. For now we will hold off on anticoagulation. If results will restart Eliquis from evening. Hold off on cilostazol. Recheck hemoglobin in afternoon. Replace 40 mg of oral potassium, 1 g of IV magnesium. DC Mayer catheter. PDMP PDMP Reviewed: Not Reviewed Attestations 2 Medical Necessity Statement*: Requires further hospitalization for management of enterococcal bacteremia, infective endocarditis, infected port, inability to remove infected port while outpatient IV antibiotics are set up, gram-negative pneumonia Diagnoses Sepsis A41.9 Infection due to Port-A-Cath T80.219A Endocarditis I38 Enterococcus faecalis infection A49.8 Bacteremia R78.81 Presence of permanent cardiac pacemaker Z95.0 Chronic diastolic heart failure I50.32 Metabolic alkalosis E87.3 Persistent atrial fibrillation I48.19 Atrial fibrillation type: persistent (not longstanding) PVD (peripheral vascular disease) I73.9 Acquired hypothyroidism E03.9 Dysuria R30.0 Iron deficiency anemia secondary to inadequate dietary iron intake D50.8 Anemia type: iron deficiency Iron deficiency anemia type: inadequate dietary iron intake Port-A-Cath in place Z95.828
[2025-02-01] MEDS: benzonatate 100 mg Capsule 200 MG PO ×2 (14:01→22:15)
[2025-02-01] MEDS: guaiFENesin-dextromethorphan UDC 10 mL 5 ML PO (14:01)
--- NOTE | 2025-02-01 14:16 | P.PN_ITS ---
Subjective 2 Subjective: Infectious disease progress note. Patient's blood culture from January 28, 2024 have unfortunately again returned positive. She started ceftriaxone yesterday, no allergic reaction noted. Tolerated the medication well overall. Medications: Reviewed: Yes Vitals/I&O/Wt Last Vital Signs Temp 98.0 F 02/01/25 07:22 Pulse 101 H 02/01/25 14:11 Resp 20 H 02/01/25 14:11 BP 133/82 02/01/25 10:16 Pulse Ox 97 02/01/25 14:11 O2 Del Method Nasal Cannula 02/01/25 14:11 O2 Flow Rate 3 02/01/25 14:11 01/31/25 02/01/25 02/01/25 22:59 06:59 14:59 Intake Total 650 / 800 250 / 1050 680 / 680 Output Total 700 / 1705 1000 / 2705 1000 / 1000 Balance -50 / -905 -750 / -1655 -320 / -320 Weight last 48 hrs Weight 49.714 kg Weight 51.256 kg Physical Exam 2 Narrative: General: No acute distress, AO x3 chronically ill-appearing HEENT: PERRLA, pupils bilaterally equal and reactive, pallors not present Chest: Normal vesicular breath sounds, no added sounds, equal good air entry bilaterally CVS: S1-S2 regular, no murmurs, no tachycardia, no gallops, no rubs Abdomen: Soft, nontender, no organomegaly, bowel sounds present Neuro: No focal deficits, no facial deformity, AO x3, power 5/5 in all limbs Urinary Catheter Management: Mayer Latex: Cath Placed During This Visit: yes Reason for Continuing Indwelling Catheter: Other Urinary Catheter Date of Insertion: 01/28/25 Urinary Catheter Time of Insertion: 11:46 Data 02/01/25 05:05 02/01/25 05:05 Micro: Microbiology 01/31/25 10:00 Gram Stain - Final Sputum - Expectorated Sputum Sputum Culture - Preliminary Gram Negative Rods 01/27/25 18:36 Blood Culture - Preliminary Blood Enterococcus faecalis A&P Assessment and plan (1) Infection due to Port-A-Cath: (2) Endocarditis: (3) Enterococcus faecalis infection: Plan 74-year-old lady with multiple comorbidities as listed above, chronic Port-A-Cath due to poor IV access, 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 Urine culture additionally positive for Enterococcus faecalis. However given persistent positivity of blood cultures, echogenic structure as seen on echocardiogram, presence of Port-A-Cath, favor endovascular infection to be the most likely cause of persisting bacteremia. Infection with atypical organism, together with echogenic structure on echocardiogram concerning for infective endocarditis. Difficult to ascertain if Port-A-Cath infection may have led to endocarditis however again elevated at this time would recommend removal of Port-A-Cath and at least 6 weeks of IV antibiotics. Additionally recommend to obtain ASPEN to further characterize the echogenic structure seen on TTE. Patient has been on treatment with IV vancomycin since admission on January 24, 2025. Vancomycin trough appropriate at 19. Her chart notes a history of multiple drug allergies to amoxicillin, cefaclor, ciprofloxacin, metronidazole, penicillins, sulfa antibiotics, tetracyclines. When asked in detail about each of these allergies, patient states she does not recall which antibiotic she may be allergic to. She states that when she was a child she developed a rash to penicillin. However thinks she may have tolerated on Augmentin in the past without any issues. Review of her chart here from past admissions showed that she has received ceftriaxone and cefepime on multiple occasions in the past without any overt issues. I discussed with with her that for Enterococcus faecalis endocarditis, treatment of choice would be dual beta-lactam therapy with ampicillin and ceftriaxone. I suspect she will not truly be allergic to ceftriaxone as she has previously tolerated IV cephalosporins in the past. She does not recall if she is truly allergic to amoxicillin and other drug classes. She states that she has reacted to multiple antibiotics without knowing their exact drug class. She is willing to try ampicillin while in the hospital with close monitoring for development of any anaphylactic reactions while she gets this drug. She understands the high risk should she be truly having an IgE mediated allergic process however wishes to proceed with a trial at this time. Discussed with her about ampicillin infusion at home would need to be done either via a continuous infusion pump which would be ideal. If an infusion pump is not approved by her insurance, she would need to infuse the antibiotic every 4-6 hours at home. She states she would be unable to infuse antibiotic with this frequency as she does not have a lot of help around her house. She is unwilling to go to a jail facility to complete her IV antibiotic course. We will first try to ascertain if she will be able to get a continuous infusion pump for home use. If this is approved, we will proceed with a trial of ampicillin here in the hospital. Will administer ampicillin first and then add ceftriaxone 24 to 48 hours later. Would prefer dual beta-lactam therapy over ampicillin plus gentamicin as we do not have reliable way of monitoring gentamicin levels as outpatient, patient has reduced creatinine clearance at 47 currently, I am afraid with her multiple other comorbidities she is at a higher risk of renal toxicity with use of gentamicin. Plan: Continue IV vancomycin for now Switch to AMP + ceftriaxone once availability of continuous infusion pump is confirmed Trial of ampicillin with close clinical monitoring for any anaphylaxis. Patient understands the high risk of proceeding with this trial recommend to get ASPEN recommend port removal total 6 weeks abx duration NO PICC LINE UNTIL cx clear for at least 48 hrs blood cx persistent + for E.fecalis on 01/23, 01/24,01/25 and 01/26 thus far cx from 01/27 is negative to date, however last updated on 01/28. will follow will follow January 30, 2025 Continuous infusion pump availability has been confirmed for home use. Will proceed with trial of ampicillin was close clinical monitoring today. Ampicillin 2 g IV every 6 hours has been ordered based on creatinine clearance of 47. At the time of discharge will transition to ampicillin 8 g IV daily via continuous infusion if demonstrates tolerance to ampicillin in the hospital. Additionally will add ceftriaxone 2 g every 12 hours over the next 24 to 48 hours. Would not add both antibiotics at the same time as we are uncertain as to her allergies. Continue vancomycin in the interim until ceftriaxone can be added and tolerability of ampicillin has been established. Closely monitor kidney function ASPEN and port removal planned for tomorrow. Blood culture from January 27, 2025 is thus far without any growth. January 31, 2025 Patient tolerated ampicillin which was introduced yesterday. Review of MAR shows she has had 3 doses, yesterday at 5:30 PM, then at midnight and then at 6 AM this morning. Kidney function has not consistently shown improvement. Calculated creatinine clearance is at 50. Will increase the dose of ampicillin to 2 g every 4 hours. At the time of discharge this will be transition to a continuous infusion pump for home usage. Additionally discontinue vancomycin and add ceftriaxone today. Review of chart shows patient has previously tolerated ceftriaxone and cefepime, anticipate her tolerating addition of ceftriaxone. Unfortunately her Port-A-Cath was unable to be removed and ASPEN was unable to be performed. Discussed with patient that with Port-A-Cath remaining in place, there does remain a risk of antibiotic failure. Currently the best we can hope in this situation is to treat through the port now that cultures are negative as of 01/27 and then aim for chronic suppression thereafter. Abx total duration of treatment to be for 6 weeks (01/27-03/10). Once a week port check and dressing changes. Weekly labs including CBC, creat, LFT to be faxed to ID clinic. will follow February 01, 2025 Patient's blood culture from January 27, 2025 has returned positive today. Unfortunately this is a very complex situation since we are not able to remove the port here for perform a ASPEN to further characterize. Given persistent positive cultures, if the vegetation is a significant site she may be a candidate for early surgery per guidelines however given her extremely frail status she appears to be an overall poor candidate for acute surgical intervention at this time. Patient would like to avoid any major surgery as far as possible. Patient started treatment with ampicillin on January 30, 2025 with addition of ceftriaxone on January 31, 2025. With switch to optimal therapy, will await for clearance of cultures by repeating blood cultures today. Should blood cultures fail to clear even after initiation of ampicillin plus ceftriaxone, patient may need to be transferred for vascular/CT surgery for port removal and further assessment with ASPEN. Discussed with radiology that a PET/CT would give us more information about endocarditis, however we are unable to perform the study as an inpatient. Discussed with them performing a WBC tagged study however this would be nonspecific for endocarditis, therefore deferred for now. PDMP PDMP Reviewed: Not Reviewed Attestations 2 Medical Necessity Statement*: per admitting, persistent positive blood cultures Coding Level of Care Code Acute Code for g [facility] Diagnoses Infection due to Port-A-Cath T80.219A Endocarditis I38 Enterococcus faecalis infection A49.8
[2025-02-01 16:20] LABS: Blood Urea Nitrogen 26 mg/dL (8-23); Calcium 8.7 mg/dL (8.5-10.5); Carbon Dioxide 33 mmol/L (22-29); Chloride 90 mmol/L (98-107); Glucose 143 mg/dL (65-115); Osmolality Calculated 289 mOsm/kg (285-295); Sodium 136 mmol/L (136-145)
[2025-02-01 16:27] LABS: Anion Gap 17.4 (5-19); Potassium 4.4 mmol/L (3.5-5.1)
[2025-02-01] MEDS: zolpidem 5 mg Tablet PO (22:15)
[2025-02-02] VITALS (9 sets, daily range): BP systolic 124–179; BP diastolic 68–79; PULSE 81–112; RESP 16–20; TEMP 36.4–36.9; O2SAT 90–99
[2025-02-02] MEDS: ampicillin 2,000 MG in sodium chloride 0.9% (plus) 50 ML 100 MG IV ×4 (02:44→22:34)
[2025-02-02] MEDS: cefTRIAXone 2,000 mg SDV 2000 MG IVP ×2 (02:44→15:19)
[2025-02-02 05:06] LABS: Basophils % 0.1 %; Eosinophils % 0.1 %; Hematocrit 30.1 % (36-47); Lymphocytes # 0.5 10^3/uL (0.8-4.8); Lymphocytes % 4.8 %; Mean Corpuscular HGB Conc 27.6 g/dL (30-55); Mean Corpuscular Hemoglobin 23.6 pg (27-33); Mean Corpuscular Volume 85.5 fl (85-98); Mean Platelet Volume 9.9 fL (7.4-10.4); Monocytes # 0.7 10^3/uL (0.2-0.9); Monocytes % 6.4 %; Neutrophils # 9.27 10^3/uL (1.8-7.7); Neutrophils % 87.5 %; Nucleated Red Blood Cells % 0 %; Platelet Count 163 10^3/cmm (157-399); Red Blood Count 3.52 10^6/uL (3.85-5.65); Red Cell Distribution Width 17.9 % (12.1-15.1)
[2025-02-02 05:27] LABS: Alanine Aminotransferase 29 U/L (0-33); Albumin Level 4.7 g/dL (3.5-5.2); Alkaline Phosphatase 139 U/L (35-105); Anion Gap 16.6 (5-19); Aspartate Amino Transferase 34 U/L (0-32); Blood Urea Nitrogen 27 mg/dL (8-23); Calcium 8.5 mg/dL (8.5-10.5); Carbon Dioxide 36 mmol/L (22-29); Chloride 90 mmol/L (98-107); Globulin 2.6 g/dL (1.3-4.6); Glucose 144 mg/dL (65-115); Osmolality Calculated 296 mOsm/kg (285-295); Potassium 3.6 mmol/L (3.5-5.1); Sodium 139 mmol/L (136-145); Total Bilirubin 0.4 mg/dL (0.15-1.2); Total Protein 7.3 g/dL (6.6-8.7)
[2025-02-02 06:21] LABS: Magnesium 1.9 mg/dL (1.7-2.3)
[2025-02-02] MEDS: bumetanide 0.25 mg/mL SDV 4 mL 1 MG IVP ×2 (06:55→18:10)
[2025-02-02] MEDS: ipratropium-albuterol 3 mL Neb INHALATION ×3 (07:46→21:56)
[2025-02-02] MEDS: benzonatate 100 mg Capsule 200 MG PO ×3 (09:32→20:55)
[2025-02-02] MEDS: magnesium oxide 400 mg tablet PO (09:32)
[2025-02-02] MEDS: acetaZOLAMIDE 250 mg Tablet PO (09:32)
--- NOTE | 2025-02-02 09:32 | P.PN_ITS ---
Subjective 2 Subjective: Patient doing okay, no significant issues with the port site. It was accessed yesterday without complications. Vitals/I&O/Wt Last Vital Signs Temp 97.7 F 02/02/25 07:46 Pulse 81 02/02/25 07:59 Resp 16 02/02/25 07:48 BP 134/77 02/02/25 07:46 Pulse Ox 99 02/02/25 07:48 O2 Del Method Nasal Cannula 02/02/25 07:48 O2 Flow Rate 3 02/02/25 07:48 02/01/25 02/02/25 02/02/25 22:59 06:59 14:59 Intake Total 390 / 1120 170 / 1290 Balance 390 / 120 170 / 290 Weight last 48 hrs Weight 113 lb 4.8 oz Weight 109 lb 9.6 oz Physical Exam 2 Neck/C-Spine: OTHER: Surgical incision healing well, no evidence of hematoma or seroma at this time, port is accessed and working Urinary Catheter Management: Mayer Latex: Cath Placed During This Visit: yes, but has since been removed by the nurse Reason for Continuing Indwelling Catheter: Other Urinary Catheter Date of Insertion: 01/28/25 Urinary Catheter Time of Insertion: 11:46 Date Urinary Catheter Removed: 02/01/25 Time Urinary Catheter Discontinued: 13:45 Data 02/02/25 04:17 02/02/25 04:17 Micro: Microbiology 01/27/25 18:36 Blood Culture - Final Blood NO GROWTH AFTER 5 DAYS 02/01/25 15:38 Blood Culture - Preliminary Blood SPECIMEN COLLECTED 02/01/25 15:38 Blood Culture - Preliminary Blood SPECIMEN COLLECTED 01/31/25 10:00 Gram Stain - Final Sputum - Expectorated Sputum Sputum Culture - Preliminary Gram Negative Rods 01/27/25 18:36 Blood Culture - Preliminary Blood Enterococcus faecalis A&P Assessment and plan (1) Endocarditis: Plan Patient progression has been good from the surgical standpoint, currently receiving IV treatment for bacteremia. Per removal was not possible as the catheter appeared to be stuck either at the junction with the subclavian vein or near where it meets with the lead of the pacemaker. We have decided to continue antibiotic treatment in the case of persistent blood cultures being positive she will be transferred to higher level of care for vascular evaluation and possible excision PDMP PDMP Reviewed: Not Reviewed Attestations 2 Medical Necessity Statement*: Per medical team Coding Level of Care Code Acute Code for g Fwd Diagnoses Endocarditis I38
[2025-02-02] MEDS: atorvastatin 40 mg Tablet 20 MG PO (09:33)
[2025-02-02] MEDS: sennosides-docusate Tablet 1 TAB PO (09:33)
[2025-02-02] MEDS: calcitriol 0.25 mcg Capsule 0.5 MCG PO (09:33)
[2025-02-02] MEDS: roflumilast 500 mcg Tablet PO (09:33)
[2025-02-02] MEDS: metoprolol tartrate 25 mg Tablet PO ×2 (09:33→18:09)
[2025-02-02] MEDS: pantoprazole DR 40 mg Tablet PO ×2 (09:33→18:09)
[2025-02-02] MEDS: levothyroxine 50 mcg Tablet PO (09:33)
[2025-02-02] MEDS: buprenorphine-naloxone 4-1 mg Film 2 EACH SUBLINGUAL ×3 (09:33→20:56)
--- NOTE | 2025-02-02 10:14 | PC.CHAP ---
Pastoral Care Encounter/Spiritual Assessment Type of Contact [] Declined synthetic staple extruder visit [] Patient/Family/Request visit [] Outpatient visit [] Follow-up visit [] Physician referral [] Code/Alert [] Routine visit [] Staff referral [] Actively dying [] Patient sleeping [] Family support [] [] Out of room [] Palliative care [] [x] Receiving care in room [] Pre-surgical visit [] Trauma [] Long length of stay [] ICU visit [] Other: Relational/Emotional Strength [] Patient feels connected with others/family/visitors/staff [] Distress [] Loneliness/isolation [] Abandonment Spirituality of Patient [] Person of Debra [] Attends Mandaeism of their Debra [] Believes in Prayer [] Reads Bible or Pentecostal materials [] There are Spiritual issues to be addressed Wealth Management Advisor Interventions [] Prayer [] Active listening [] Non-anxious presence [] Spiritual/emotional support [] Crisis/trauma care [] Spiritual counseling [] Bereavement support [] Provided bereavement packet [] Provided Bible/devotional materials [] Provided toy/stuffed animal, coloring book to patient or family member [] Provided Communion [] Anointing/[place] [] Salvation [] Completed spiritual assessment [] Other: Impact on Illness or Injury [] Angry [] Fearful [] Anxious [] Often cries [] Exhaustion [] Unable to work [] Unable to attend zoroastrianism [] Unable to walk/stand [] Unable to read [] Unable to drive [] Unable to eat/drink [] Unable to sleep [] Unable to be with family [] Patient intubated [] Other: Summary Time spent with patient
[2025-02-02] MEDS: albumin 25 G/100 ML BAG 60 G IV (10:51)
--- NOTE | 2025-02-02 13:57 | P.PN_ITS ---
Subjective 2 Subjective: No acute events overnight. Patient has remained hemodynamically stable and afebrile. Was able to access support overnight. Medications: Reviewed: Yes Vitals/I&O/Wt Last Vital Signs Temp 98.5 F 02/02/25 11:42 Pulse 89 02/02/25 13:28 Resp 18 02/02/25 13:28 BP 179/73 02/02/25 11:42 Pulse Ox 97 02/02/25 13:28 O2 Del Method Nasal Cannula 02/02/25 13:28 O2 Flow Rate 3 02/02/25 13:28 02/01/25 02/02/25 02/02/25 22:59 06:59 14:59 Intake Total 390 / 1120 170 / 1290 530 / 530 Balance 390 / 120 170 / 290 530 / 530 Weight last 48 hrs Weight 51.392 kg Weight 49.714 kg Physical Exam 2 Narrative: General: Patient is awake. Frail-appearing. Very pleasant. Head: Temporal wasting. Neck: No JVD. Cardiovascular: No gallops. Pansystolic murmur at apex radiating to anterior axillary line 2/6, early diastolic murmur at aortic region radiating to apex. 2+ pitting edema bilateral lower extremities extending up to thighs, Lungs: Poor air movement overall. Tachypneic with talking. Bilateral rhonchi, conversational dyspnea, on nasal cannula. Skin: No jaundice. No rashes. Abdomen: Normal bowel sounds, abdomen soft and nontender. Extremities: No cyanosis or clubbing. Musculoskeletal: No swollen or erythematous joints. Neurological: Moves all 4 extremities. No myoclonus. Urinary Catheter Management: Mayer Latex: Cath Placed During This Visit: yes, but has since been removed by the nurse Reason for Continuing Indwelling Catheter: Other Urinary Catheter Date of Insertion: 01/28/25 Urinary Catheter Time of Insertion: 11:46 Date Urinary Catheter Removed: 02/01/25 Time Urinary Catheter Discontinued: 13:45 Data 02/02/25 04:17 02/02/25 04:17 Micro: Microbiology 01/27/25 18:36 Blood Culture - Final Blood NO GROWTH AFTER 5 DAYS 02/01/25 15:38 Blood Culture - Preliminary Blood SPECIMEN COLLECTED 02/01/25 15:38 Blood Culture - Preliminary Blood SPECIMEN COLLECTED 01/31/25 10:00 Gram Stain - Final Sputum - Expectorated Sputum Sputum Culture - Preliminary Gram Negative Rods A&P Assessment and plan (1) Sepsis: (2) Infection due to Port-A-Cath: (3) Endocarditis: (4) Enterococcus faecalis infection: (5) Bacteremia: (6) Presence of permanent cardiac pacemaker: (7) Chronic diastolic heart failure: (8) Metabolic alkalosis: (9) Atrial fibrillation: Qualifiers: Atrial fibrillation type: persistent (not longstanding) Qualified Code(s): I48.19 - Other persistent atrial fibrillation (10) PVD (peripheral vascular disease): (11) Acquired hypothyroidism: (12) Dysuria: (13) Anemia: Qualifiers: Anemia type: iron deficiency Iron deficiency anemia type: inadequate dietary iron intake Qualified Code(s): D50.8 - Other iron deficiency anemias (14) Port-A-Cath in place: Plan Sepsis complicated by Enterococcus faecalis bacteremia: Persistent Enterococcus faecalis bacteremia. Repeat blood cultures from 01/27 so far negative. Appreciate echocardiogram results. Concern for echogenic structure in right atrium with proximity to tricuspid valve. Patient does have pacemaker. Cannot rule out pacemaker wire infection. Also has port in place. Cannot rule out port infection. Patient would benefit from port removal and ASPEN. Patient reluctant for the both as in the past she has been told there is a high risk of mortality for her with procedure. We discussed that she is chronically on 3 L and currently doing well on 3 L saturating more than 95%, hemodynamically has been stable with EF of 55 to 60%. She is cleared for port removal and ASPEN with low to moderate risk for a low risk procedure. She would like to discuss further with her son before making a decision. Will consult ID. Follow-up repeat cultures. Continue with IV vancomycin for now. Monitor trough levels between 15-20. Given need for port removal for now we will stop the Eliquis and switch to full dose Lovenox 1 mg/kg body weight Q12 hourly. Chronic hypoxic respiratory failure and currently on 3L oxygen supplementation. In setting of diastolic congestive heart failure. Continue supplemental oxygen support Acute on chronic diastolic HFpEF with exacerbation Appreciate echocardiogram. Continue with IV Bumex 1 mg Q12 hourly. Fluid restriction to less than 1500 cc. Strict input charting, daily weights. COPD with exacerbation -Continue prednisone 40 mg oral daily. Will plan to continue for 5 days overall. -Continue nebulized treatments. Add Pulmicort. Anemia: Chronic. Hemoglobin around 7.3. Denies any melena. Patient has a history of peripheral vascular disease, congestive heart failure target hemoglobin over 8. Will transfuse 1 unit of PRBC. Continue with Protonix twice daily. Will give 1 mg of IV Bumex along transfusion. Peripheral vascular disease -Continue cilostazol Acute on chronic kidney disease -MARTIN resolved, renal function at baseline; continue to monitor -Strict I's and O's -Daily weights -Renally dose meds Atrial fibrillation, unspecified type -Switch from apixaban 2.5 mg twice daily to Lovenox 1 mg/kg body weight Q12 hourly given concerns for port removal. Hypokalemia Hypomagnesia -Replace K and Mg as needed History of lung cancer History of thyroid cancer status post thyroidectomy Full code Cardiac diet Fluid restriction Protonix OPD prophylaxis Full dose Lovenox will be sufficient for DVT prophylaxis Care discussed in detail with patient and patient's son Ye Lombardi over the phone. Discussed the need for port removal and ASPEN given concerns of persistent Enterococcus bacteremia, echogenic mass on RA and near tricuspid valve. They are both agreeable for the procedure. All the questions were answered. Plan for the day: Repeat blood cultures on 01/27 came back positive. Repeat blood culture sent on 02/01. Will continue to follow. Patient started on targeted IV antibiotics as per ID recommendations on 01/30. For now we will continue to monitor the repeat blood culture. If remains negative for 48 to 72 hours can plan to discharge. Able to access port. Will plan to discharge with antibiotics to the port. If the repeat blood culture from 02/01 comes back positive we will have to possibly transfer patient to a tertiary center where vascular surgery and cardiac MRI is available. Cough improving. Follow-up sputum culture results. Growing gram-negative rods. Breathing status improving. Continue with IV Bumex 1 mg every 12 hourly. Bicarb stable. Continue with Diamox 150 mg daily. Monitor BMP daily. DC albumin. Monitor electrolytes daily. Restart Eliquis 5 mg twice daily. Patient not having any further hemoptysis or epistaxis. If remains stable we will plan to restart cilostazol. Out of bed to chair. Will request patient to ambulate as much as possible. PDMP PDMP Reviewed: Not Reviewed Attestations 2 Medical Necessity Statement*: Requires hospitalization for management of Enterococcus faecalis bacteremia in setting of infective endocarditis and port infection while negative blood cultures are awaited, outpatient IV antibiotics for arranged, diastolic heart failure Diagnoses Sepsis A41.9 Infection due to Port-A-Cath T80.219A Endocarditis I38 Enterococcus faecalis infection A49.8 Bacteremia R78.81 Presence of permanent cardiac pacemaker Z95.0 Chronic diastolic heart failure I50.32 Metabolic alkalosis E87.3 Persistent atrial fibrillation I48.19 Atrial fibrillation type: persistent (not longstanding) PVD (peripheral vascular disease) I73.9 Acquired hypothyroidism E03.9 Dysuria R30.0 Iron deficiency anemia secondary to inadequate dietary iron intake D50.8 Anemia type: iron deficiency Iron deficiency anemia type: inadequate dietary iron intake Port-A-Cath in place Z95.828
--- NOTE | 2025-02-02 15:46 | P.PN_ITS ---
Subjective 2 Subjective: Infectious disease progress note. No acute interim events. Patient is tearful when told that her cultures from January 27 are additionally positive. States that she would like to go home. Again states she would like to avoid any major surgery as far as possible. Medications: Reviewed: Yes Vitals/I&O/Wt Last Vital Signs Temp 98.5 F 02/02/25 11:42 Pulse 89 02/02/25 13:28 Resp 18 02/02/25 13:28 BP 179/73 02/02/25 11:42 Pulse Ox 97 02/02/25 13:28 O2 Del Method Nasal Cannula 02/02/25 13:28 O2 Flow Rate 3 02/02/25 13:28 02/02/25 02/02/25 02/02/25 06:59 14:59 22:59 Intake Total 170 / 1290 630 / 630 Balance 170 / 290 630 / 630 Weight last 48 hrs Weight 51.392 kg Weight 49.714 kg Physical Exam 2 Narrative: General: No acute distress, AO x3 chronically ill-appearing HEENT: PERRLA, pupils bilaterally equal and reactive, pallors not present Chest: Normal vesicular breath sounds, no added sounds, equal good air entry bilaterally CVS: S1-S2 regular, no murmurs, no tachycardia, no gallops, no rubs Abdomen: Soft, nontender, no organomegaly, bowel sounds present Neuro: No focal deficits, no facial deformity, AO x3, power 5/5 in all limbs Urinary Catheter Management: Mayer Latex: Cath Placed During This Visit: yes, but has since been removed by the nurse Reason for Continuing Indwelling Catheter: Other Urinary Catheter Date of Insertion: 01/28/25 Urinary Catheter Time of Insertion: 11:46 Date Urinary Catheter Removed: 02/01/25 Time Urinary Catheter Discontinued: 13:45 Data 02/02/25 04:17 02/02/25 04:17 Micro: Microbiology 01/27/25 18:36 Blood Culture - Final Blood NO GROWTH AFTER 5 DAYS 02/01/25 15:38 Blood Culture - Preliminary Blood SPECIMEN COLLECTED 02/01/25 15:38 Blood Culture - Preliminary Blood SPECIMEN COLLECTED 01/31/25 10:00 Gram Stain - Final Sputum - Expectorated Sputum Sputum Culture - Preliminary Gram Negative Rods A&P Assessment and plan (1) Infection due to Port-A-Cath: (2) Endocarditis: (3) Enterococcus faecalis infection: Plan 74-year-old lady with multiple comorbidities as listed above, chronic Port-A-Cath due to poor IV access, 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 Urine culture additionally positive for Enterococcus faecalis. However given persistent positivity of blood cultures, echogenic structure as seen on echocardiogram, presence of Port-A-Cath, favor endovascular infection to be the most likely cause of persisting bacteremia. Infection with atypical organism, together with echogenic structure on echocardiogram concerning for infective endocarditis. Difficult to ascertain if Port-A-Cath infection may have led to endocarditis however again elevated at this time would recommend removal of Port-A-Cath and at least 6 weeks of IV antibiotics. Additionally recommend to obtain ASPEN to further characterize the echogenic structure seen on TTE. Patient has been on treatment with IV vancomycin since admission on January 24, 2025. Vancomycin trough appropriate at 19. Her chart notes a history of multiple drug allergies to amoxicillin, cefaclor, ciprofloxacin, metronidazole, penicillins, sulfa antibiotics, tetracyclines. When asked in detail about each of these allergies, patient states she does not recall which antibiotic she may be allergic to. She states that when she was a child she developed a rash to penicillin. However thinks she may have tolerated on Augmentin in the past without any issues. Review of her chart here from past admissions showed that she has received ceftriaxone and cefepime on multiple occasions in the past without any overt issues. I discussed with with her that for Enterococcus faecalis endocarditis, treatment of choice would be dual beta-lactam therapy with ampicillin and ceftriaxone. I suspect she will not truly be allergic to ceftriaxone as she has previously tolerated IV cephalosporins in the past. She does not recall if she is truly allergic to amoxicillin and other drug classes. She states that she has reacted to multiple antibiotics without knowing their exact drug class. She is willing to try ampicillin while in the hospital with close monitoring for development of any anaphylactic reactions while she gets this drug. She understands the high risk should she be truly having an IgE mediated allergic process however wishes to proceed with a trial at this time. Discussed with her about ampicillin infusion at home would need to be done either via a continuous infusion pump which would be ideal. If an infusion pump is not approved by her insurance, she would need to infuse the antibiotic every 4-6 hours at home. She states she would be unable to infuse antibiotic with this frequency as she does not have a lot of help around her house. She is unwilling to go to a nursing home facility to complete her IV antibiotic course. We will first try to ascertain if she will be able to get a continuous infusion pump for home use. If this is approved, we will proceed with a trial of ampicillin here in the hospital. Will administer ampicillin first and then add ceftriaxone 24 to 48 hours later. Would prefer dual beta-lactam therapy over ampicillin plus gentamicin as we do not have reliable way of monitoring gentamicin levels as outpatient, patient has reduced creatinine clearance at 47 currently, I am afraid with her multiple other comorbidities she is at a higher risk of renal toxicity with use of gentamicin. Plan: Continue IV vancomycin for now Switch to AMP + ceftriaxone once availability of continuous infusion pump is confirmed Trial of ampicillin with close clinical monitoring for any anaphylaxis. Patient understands the high risk of proceeding with this trial recommend to get ASPEN recommend port removal total 6 weeks abx duration NO PICC LINE UNTIL cx clear for at least 48 hrs blood cx persistent + for E.fecalis on 01/23, 01/24,01/25 and 01/26 thus far cx from 01/27 is negative to date, however last updated on 01/28. will follow will follow January 30, 2025 Continuous infusion pump availability has been confirmed for home use. Will proceed with trial of ampicillin was close clinical monitoring today. Ampicillin 2 g IV every 6 hours has been ordered based on creatinine clearance of 47. At the time of discharge will transition to ampicillin 8 g IV daily via continuous infusion if demonstrates tolerance to ampicillin in the hospital. Additionally will add ceftriaxone 2 g every 12 hours over the next 24 to 48 hours. Would not add both antibiotics at the same time as we are uncertain as to her allergies. Continue vancomycin in the interim until ceftriaxone can be added and tolerability of ampicillin has been established. Closely monitor kidney function ASPEN and port removal planned for tomorrow. Blood culture from January 27, 2025 is thus far without any growth. January 31, 2025 Patient tolerated ampicillin which was introduced yesterday. Review of JAN shows she has had 3 doses, yesterday at 5:30 PM, then at midnight and then at 6 AM this morning. Kidney function has not consistently shown improvement. Calculated creatinine clearance is at 50. Will increase the dose of ampicillin to 2 g every 4 hours. At the time of discharge this will be transition to a continuous infusion pump for home usage. Additionally discontinue vancomycin and add ceftriaxone today. Review of chart shows patient has previously tolerated ceftriaxone and cefepime, anticipate her tolerating addition of ceftriaxone. Unfortunately her Port-A-Cath was unable to be removed and ASPEN was unable to be performed. Discussed with patient that with Port-A-Cath remaining in place, there does remain a risk of antibiotic failure. Currently the best we can hope in this situation is to treat through the port now that cultures are negative as of 01/27 and then aim for chronic suppression thereafter. Abx total duration of treatment to be for 6 weeks (01/27-03/10). Once a week port check and dressing changes. Weekly labs including CBC, creat, LFT to be faxed to ID clinic. will follow February 01, 2025 Patient's blood culture from January 27, 2025 has returned positive today. Unfortunately this is a very complex situation since we are not able to remove the port here for perform a ASPEN to further characterize. Given persistent positive cultures, if the vegetation is a significant site she may be a candidate for early surgery per guidelines however given her extremely frail status she appears to be an overall poor candidate for acute surgical intervention at this time. Patient would like to avoid any major surgery as far as possible. Patient started treatment with ampicillin on January 30, 2025 with addition of ceftriaxone on January 31, 2025. With switch to optimal therapy, will await for clearance of cultures by repeating blood cultures today. Should blood cultures fail to clear even after initiation of ampicillin plus ceftriaxone, patient may need to be transferred for vascular/CT surgery for port removal and further assessment with ASPEN. Discussed with radiology that a PET/CT would give us more information about endocarditis, however we are unable to perform the study as an inpatient. Discussed with them performing a WBC tagged study however this would be nonspecific for endocarditis, therefore deferred for now. February 02, 2025 Blood culture from January 27, 2025 positive for Enterococcus faecalis. Switch to ampicillin plus ceftriaxone on January 30, 2025, ceftriaxone added January 31, 2025. Tolerating both antibiotics well at this time. Removed from allergy list. Given persistent positive cultures, inability to remove port, vegetation seen on TTE, multiple potential remaining sites with inadequate source control likely to be the cause of persisting infection. Patient would like to avoid any further surgical intervention and would like to be treated locally as far as possible. We have switched to dual beta-lactam therapy on January 30, 2025, new blood cultures have been taken on February 01, 2025. Hopefully cultures from February 01 would be clear from bacteremia. Will plan to continue 6 weeks of IV antibiotics if cultures clear followed by chronic suppression. If cultures fail to clear, will likely need to transfer patient to higher center for port removal and ASPEN. PDMP PDMP Reviewed: Not Reviewed Attestations 2 Medical Necessity Statement*: per admitting Coding Level of Care Code Acute Code for [facility] Diagnoses Infection due to Port-A-Cath T80.219A Endocarditis I38 Enterococcus faecalis infection A49.8
[2025-02-02] MEDS: apixaban 5 mg Tablet PO (20:56)
[2025-02-03] VITALS (9 sets, daily range): BP systolic 110–142; BP diastolic 54–71; PULSE 68–86; RESP 16–20; TEMP 36.4–36.7; O2SAT 91–100
[2025-02-03] MEDS: cefTRIAXone 2,000 mg SDV 2000 MG IVP ×2 (02:05→15:20)
[2025-02-03 04:30] LABS: Basophils % 0.1 %; Eosinophils # 0.1 10^3/uL (0.0-0.8); Eosinophils % 0.7 %; Hematocrit 30.1 % (36-47); Lymphocytes # 0.5 10^3/uL (0.8-4.8); Lymphocytes % 5.1 %; Mean Corpuscular HGB Conc 27.2 g/dL (30-55); Mean Corpuscular Hemoglobin 23.6 pg (27-33); Mean Corpuscular Volume 86.5 fl (85-98); Monocytes # 0.7 10^3/uL (0.2-0.9); Monocytes % 6.5 %; Neutrophils # 8.68 10^3/uL (1.8-7.7); Neutrophils % 86.8 %; Nucleated Red Blood Cells % 0 %; Platelet Count 148 10^3/cmm (157-399); Red Blood Count 3.48 10^6/uL (3.85-5.65); Red Cell Distribution Width 18.1 % (12.1-15.1)
[2025-02-03 05:02] LABS: Alanine Aminotransferase 32 U/L (0-33); Albumin Level 4.6 g/dL (3.5-5.2); Alkaline Phosphatase 144 U/L (35-105); Anion Gap 16.1 (5-19); Aspartate Amino Transferase 32 U/L (0-32); Blood Urea Nitrogen 25 mg/dL (8-23); Calcium 8.6 mg/dL (8.5-10.5); Carbon Dioxide 37 mmol/L (22-29); Chloride 89 mmol/L (98-107); Globulin 2.3 g/dL (1.3-4.6); Glucose 113 mg/dL (65-115); Osmolality Calculated 293 mOsm/kg (285-295); Potassium 3.1 mmol/L (3.5-5.1); Sodium 139 mmol/L (136-145); Total Bilirubin 0.3 mg/dL (0.15-1.2); Total Protein 6.9 g/dL (6.6-8.7)
[2025-02-03] MEDS: ampicillin 2,000 MG in sodium chloride 0.9% (plus) 50 ML 100 MG IV ×4 (05:14→22:49)
[2025-02-03] MEDS: bumetanide 0.25 mg/mL SDV 4 mL 1 MG IVP ×2 (05:14→17:04)
[2025-02-03] MEDS: ipratropium-albuterol 3 mL Neb INHALATION ×2 (08:28→19:14)
[2025-02-03] MEDS: roflumilast 500 mcg Tablet PO (09:24)
[2025-02-03] MEDS: apixaban 5 mg Tablet PO ×2 (09:24→21:02)
[2025-02-03] MEDS: benzonatate 100 mg Capsule 200 MG PO ×3 (09:24→21:02)
[2025-02-03] MEDS: metoprolol tartrate 25 mg Tablet PO ×2 (09:24→17:05)
[2025-02-03] MEDS: sennosides-docusate Tablet 1 TAB PO (09:24)
[2025-02-03] MEDS: calcitriol 0.25 mcg Capsule 0.5 MCG PO (09:24)
[2025-02-03] MEDS: acetaZOLAMIDE 250 mg Tablet PO (09:24)
[2025-02-03] MEDS: magnesium oxide 400 mg tablet PO (09:25)
[2025-02-03] MEDS: atorvastatin 40 mg Tablet 20 MG PO (09:25)
[2025-02-03] MEDS: pantoprazole DR 40 mg Tablet PO ×2 (09:25→17:05)
[2025-02-03] MEDS: levothyroxine 50 mcg Tablet PO (09:25)
[2025-02-03] MEDS: buprenorphine-naloxone 4-1 mg Film 2 EACH SUBLINGUAL ×3 (09:25→21:02)
[2025-02-03] MEDS: potassium chloride oral liq 20 mEq/15 mL UDC 80 MEQ PO (12:52)
[2025-02-03] MEDS: ALPRAZolam 0.5 mg Tablet PO ×2 (13:10→21:02)
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
[2025-02-03] MEDS: levoFLOXacin 750 mg Tablet PO (15:37)
[2025-02-04] VITALS (11 sets, daily range): BP systolic 110–144; BP diastolic 50–68; PULSE 64–106; RESP 16–20; TEMP 36.3–36.5; O2SAT 92–100
[2025-02-04] MEDS: ipratropium-albuterol 3 mL Neb INHALATION ×4 (01:55→20:50)
[2025-02-04] MEDS: cefTRIAXone 2,000 mg SDV 2000 MG IVP ×2 (03:07→15:19)
[2025-02-04] MEDS: ampicillin 2,000 MG in sodium chloride 0.9% (plus) 50 ML 100 MG IV ×4 (05:29→23:08)
[2025-02-04] MEDS: levoFLOXacin 750 mg Tablet PO (05:31)
[2025-02-04] MEDS: buprenorphine-naloxone 4-1 mg Film 2 EACH SUBLINGUAL ×3 (08:38→20:41)
[2025-02-04] MEDS: acetaZOLAMIDE 250 mg Tablet PO (08:38)
[2025-02-04] MEDS: calcitriol 0.25 mcg Capsule 0.5 MCG PO (08:39)
[2025-02-04] MEDS: benzonatate 100 mg Capsule 200 MG PO ×3 (08:39→20:40)
[2025-02-04] MEDS: apixaban 5 mg Tablet PO ×2 (08:39→20:40)
[2025-02-04] MEDS: sennosides-docusate Tablet 1 TAB PO (08:39)
[2025-02-04] MEDS: pantoprazole DR 40 mg Tablet PO ×2 (08:39→16:59)
[2025-02-04] MEDS: levothyroxine 50 mcg Tablet PO (08:39)
[2025-02-04] MEDS: roflumilast 500 mcg Tablet PO (08:39)
[2025-02-04] MEDS: magnesium oxide 400 mg tablet PO (08:39)
[2025-02-04] MEDS: atorvastatin 40 mg Tablet 20 MG PO (08:39)
[2025-02-04 08:46] LABS: Eosinophils # 0.1 10^3/uL (0.0-0.8); Eosinophils % 0.9 %; Hematocrit 29.7 % (36-47); Lymphocytes # 0.6 10^3/uL (0.8-4.8); Lymphocytes % 5.7 %; Mean Corpuscular HGB Conc 27.3 g/dL (30-55); Mean Corpuscular Hemoglobin 23.4 pg (27-33); Mean Corpuscular Volume 85.8 fl (85-98); Mean Platelet Volume 9.4 fL (7.4-10.4); Monocytes # 0.6 10^3/uL (0.2-0.9); Monocytes % 5.9 %; Neutrophils # 9.02 10^3/uL (1.8-7.7); Neutrophils % 86.8 %; Nucleated Red Blood Cells % 0 %; Platelet Count 127 10^3/cmm (157-399); Red Blood Count 3.46 10^6/uL (3.85-5.65); Red Cell Distribution Width 18.1 % (12.1-15.1); White Blood Count 10.38 10^3/uL (3.29-11.43)
[2025-02-04 09:03] LABS: Alanine Aminotransferase 25 U/L (0-33); Albumin Level 4.2 g/dL (3.5-5.2); Alkaline Phosphatase 138 U/L (35-105); Anion Gap 12.7 (5-19); Aspartate Amino Transferase 20 U/L (0-32); Blood Urea Nitrogen 27 mg/dL (8-23); Calcium 8.8 mg/dL (8.5-10.5); Carbon Dioxide 38 mmol/L (22-29); Chloride 91 mmol/L (98-107); Globulin 2.3 g/dL (1.3-4.6); Glucose 92 mg/dL (65-115); Osmolality Calculated 291 mOsm/kg (285-295); Potassium 3.7 mmol/L (3.5-5.1); Sodium 138 mmol/L (136-145); Total Bilirubin 0.4 mg/dL (0.15-1.2); Total Protein 6.5 g/dL (6.6-8.7)
[2025-02-04] MEDS: bumetanide 0.25 mg/mL SDV 4 mL 1 MG IVP ×2 (09:54→16:59)
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
--- NOTE | 2025-02-04 16:35 | P.PN_ITS ---
Subjective 2 Subjective: Infectious disease progress note. Blood culture from February 01, 2025 currently remains negative. Medications: Reviewed: Yes Vitals/I&O/Wt Last Vital Signs Temp 97.3 F L 02/04/25 12:00 Pulse 106 H 02/04/25 14:54 Resp 19 H 02/04/25 14:54 BP 144/68 02/04/25 12:00 Pulse Ox 92 02/04/25 14:54 O2 Del Method Nasal Cannula 02/04/25 14:54 O2 Flow Rate 3 02/04/25 14:54 FiO2 3 02/03/25 15:03 02/04/25 02/04/25 02/04/25 07:59 14:59 22:59 Intake Total 100 / 440 1130 / 1130 Balance 100 / 440 1130 / 1130 Weight last 48 hrs Weight 52.662 kg Weight 52.345 kg Physical Exam 2 Narrative: General: No acute distress, AO x3 chronically ill-appearing HEENT: PERRLA, pupils bilaterally equal and reactive, pallors not present Chest: Normal vesicular breath sounds, no added sounds, equal good air entry bilaterally CVS: S1-S2 regular, no murmurs, no tachycardia, no gallops, no rubs Abdomen: Soft, nontender, no organomegaly, bowel sounds present Neuro: No focal deficits, no facial deformity, AO x3, power 5/5 in all limbs Urinary Catheter Management: Mayer Latex: Cath Placed During This Visit: yes, but has since been removed by the nurse Reason for Continuing Indwelling Catheter: Other Urinary Catheter Date of Insertion: 01/28/25 Urinary Catheter Time of Insertion: 11:46 Date Urinary Catheter Removed: 02/01/25 Time Urinary Catheter Discontinued: 13:45 Data 02/04/25 08:39 02/04/25 08:39 Micro: Microbiology 01/27/25 18:36 Blood Culture - Final Blood Enterococcus faecalis 01/26/25 08:53 Blood Culture - Final Blood Enterococcus faecalis 01/26/25 08:44 Blood Culture - Final Blood Enterococcus faecalis 01/31/25 10:00 Gram Stain - Final Sputum - Expectorated Sputum Sputum Culture - Final Stenotrophomonas maltophilia A&P Assessment and plan (1) Infection due to Port-A-Cath: (2) Endocarditis: (3) Enterococcus faecalis infection: Plan 74-year-old lady with multiple comorbidities as listed above, chronic Port-A-Cath due to poor IV access, 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 Urine culture additionally positive for Enterococcus faecalis. However given persistent positivity of blood cultures, echogenic structure as seen on echocardiogram, presence of Port-A-Cath, favor endovascular infection to be the most likely cause of persisting bacteremia. Infection with atypical organism, together with echogenic structure on echocardiogram concerning for infective endocarditis. Difficult to ascertain if Port-A-Cath infection may have led to endocarditis however again elevated at this time would recommend removal of Port-A-Cath and at least 6 weeks of IV antibiotics. Additionally recommend to obtain ASPEN to further characterize the echogenic structure seen on TTE. Patient has been on treatment with IV vancomycin since admission on January 24, 2025. Vancomycin trough appropriate at 19. Her chart notes a history of multiple drug allergies to amoxicillin, cefaclor, ciprofloxacin, metronidazole, penicillins, sulfa antibiotics, tetracyclines. When asked in detail about each of these allergies, patient states she does not recall which antibiotic she may be allergic to. She states that when she was a child she developed a rash to penicillin. However thinks she may have tolerated on Augmentin in the past without any issues. Review of her chart here from past admissions showed that she has received ceftriaxone and cefepime on multiple occasions in the past without any overt issues. I discussed with with her that for Enterococcus faecalis endocarditis, treatment of choice would be dual beta-lactam therapy with ampicillin and ceftriaxone. I suspect she will not truly be allergic to ceftriaxone as she has previously tolerated IV cephalosporins in the past. She does not recall if she is truly allergic to amoxicillin and other drug classes. She states that she has reacted to multiple antibiotics without knowing their exact drug class. She is willing to try ampicillin while in the hospital with close monitoring for development of any anaphylactic reactions while she gets this drug. She understands the high risk should she be truly having an IgE mediated allergic process however wishes to proceed with a trial at this time. Discussed with her about ampicillin infusion at home would need to be done either via a continuous infusion pump which would be ideal. If an infusion pump is not approved by her insurance, she would need to infuse the antibiotic every 4-6 hours at home. She states she would be unable to infuse antibiotic with this frequency as she does not have a lot of help around her house. She is unwilling to go to a penitentiary facility to complete her IV antibiotic course. We will first try to ascertain if she will be able to get a continuous infusion pump for home use. If this is approved, we will proceed with a trial of ampicillin here in the hospital. Will administer ampicillin first and then add ceftriaxone 24 to 48 hours later. Would prefer dual beta-lactam therapy over ampicillin plus gentamicin as we do not have reliable way of monitoring gentamicin levels as outpatient, patient has reduced creatinine clearance at 47 currently, I am afraid with her multiple other comorbidities she is at a higher risk of renal toxicity with use of gentamicin. Plan: Continue IV vancomycin for now Switch to AMP + ceftriaxone once availability of continuous infusion pump is confirmed Trial of ampicillin with close clinical monitoring for any anaphylaxis. Patient understands the high risk of proceeding with this trial recommend to get ASPEN recommend port removal total 6 weeks abx duration NO PICC LINE UNTIL cx clear for at least 48 hrs blood cx persistent + for E.fecalis on 01/23, 01/24,01/25 and 01/26 thus far cx from 01/27 is negative to date, however last updated on 01/28. will follow will follow January 30, 2025 Continuous infusion pump availability has been confirmed for home use. Will proceed with trial of ampicillin was close clinical monitoring today. Ampicillin 2 g IV every 6 hours has been ordered based on creatinine clearance of 47. At the time of discharge will transition to ampicillin 8 g IV daily via continuous infusion if demonstrates tolerance to ampicillin in the hospital. Additionally will add ceftriaxone 2 g every 12 hours over the next 24 to 48 hours. Would not add both antibiotics at the same time as we are uncertain as to her allergies. Continue vancomycin in the interim until ceftriaxone can be added and tolerability of ampicillin has been established. Closely monitor kidney function ASPEN and port removal planned for tomorrow. Blood culture from January 27, 2025 is thus far without any growth. January 31, 2025 Patient tolerated ampicillin which was introduced yesterday. Review of MAR shows she has had 3 doses, yesterday at 5:30 PM, then at midnight and then at 6 AM this morning. Kidney function has not consistently shown improvement. Calculated creatinine clearance is at 50. Will increase the dose of ampicillin to 2 g every 4 hours. At the time of discharge this will be transition to a continuous infusion pump for home usage. Additionally discontinue vancomycin and add ceftriaxone today. Review of chart shows patient has previously tolerated ceftriaxone and cefepime, anticipate her tolerating addition of ceftriaxone. Unfortunately her Port-A-Cath was unable to be removed and ASPEN was unable to be performed. Discussed with patient that with Port-A-Cath remaining in place, there does remain a risk of antibiotic failure. Currently the best we can hope in this situation is to treat through the port now that cultures are negative as of 01/27 and then aim for chronic suppression thereafter. Abx total duration of treatment to be for 6 weeks (01/27-03/10). Once a week port check and dressing changes. Weekly labs including CBC, creat, LFT to be faxed to ID clinic. will follow February 01, 2025 Patient's blood culture from January 27, 2025 has returned positive today. Unfortunately this is a very complex situation since we are not able to remove the port here for perform a ASPEN to further characterize. Given persistent positive cultures, if the vegetation is a significant site she may be a candidate for early surgery per guidelines however given her extremely frail status she appears to be an overall poor candidate for acute surgical intervention at this time. Patient would like to avoid any major surgery as far as possible. Patient started treatment with ampicillin on January 30, 2025 with addition of ceftriaxone on January 31, 2025. With switch to optimal therapy, will await for clearance of cultures by repeating blood cultures today. Should blood cultures fail to clear even after initiation of ampicillin plus ceftriaxone, patient may need to be transferred for vascular/CT surgery for port removal and further assessment with ASPEN. Discussed with radiology that a PET/CT would give us more information about endocarditis, however we are unable to perform the study as an inpatient. Discussed with them performing a WBC tagged study however this would be nonspecific for endocarditis, therefore deferred for now. February 02, 2025 Blood culture from January 27, 2025 positive for Enterococcus faecalis. Switch to ampicillin plus ceftriaxone on January 30, 2025, ceftriaxone added January 31, 2025. Tolerating both antibiotics well at this time. Removed from allergy list. Given persistent positive cultures, inability to remove port, vegetation seen on TTE, multiple potential remaining sites with inadequate source control likely to be the cause of persisting infection. Patient would like to avoid any further surgical intervention and would like to be treated locally as far as possible. We have switched to dual beta-lactam therapy on January 30, 2025, new blood cultures have been taken on February 01, 2025. Hopefully cultures from February 01 would be clear from bacteremia. Will plan to continue 6 weeks of IV antibiotics if cultures clear followed by chronic suppression. If cultures fail to clear, will likely need to transfer patient to higher center for port removal and ASPEN. February 04, 2025 Sputum culture had revealed Stenotrophomonas maltophilia. Discussed the case with hospitalist and recommended to start levofloxacin for the same. Patient states she has tolerated levofloxacin in the past without any issues. States she may have had problem with Cipro with throat closing but levofloxacin has been tolerated. She is allergic to Bactrim and she is certain about this allergy. Currently tolerating ampicillin and ceftriaxone without issues. She has developed 2 skin tears over her left arm which are currently inflamed in appearance. Recommended to apply mupirocin ointment and ice pack to the extremity. Currently her IV access is via her port which is functioning. Blood culture from February 01, 2025 are currently negative. Hopefully this is reflective of the bacteremia clearing with transition to dual beta-lactam therapy. Dose of ampicillin was reduced to 2 g IV every 6 hours as estimated creatinine clearance is currently at 43. At the time of discharge recommend transition to ampicillin 8 g IV via continuous infusion pump and ceftriaxone 2 g IV every 12 hours for Enterococcus faecalis endocarditis. Unable to get ASPEN and removal of port as noted above. Weekly labs including CBC, creatinine, LFT to be faxed to infectious disease clinic for review. Follow-up in ID clinic on February 19, 2025 at 2:30 PM. PDMP PDMP Reviewed: Not Reviewed Attestations 2 Medical Necessity Statement*: Per admitting Coding Level of Care Code Acute Code for [facility] Diagnoses Infection due to Port-A-Cath T80.219A Endocarditis I38 Enterococcus faecalis infection A49.8
[2025-02-04] MEDS: mupirocin oint 22 gm 1 APPLIC TOPICAL (18:10)
[2025-02-04] MEDS: TRAMadol 50 mg Tablet PO (18:18)
[2025-02-04] MEDS: metoprolol tartrate 25 mg Tablet PO (18:30)
[2025-02-04] MEDS: zolpidem 5 mg Tablet PO (20:40)
[2025-02-05] VITALS (11 sets, daily range): BP systolic 104–118; BP diastolic 53–67; PULSE 77–89; RESP 16–20; TEMP 36.3–36.7; O2SAT 93–100
[2025-02-05] MEDS: ipratropium-albuterol 3 mL Neb INHALATION ×4 (01:42→20:11)
[2025-02-05 03:04] LABS: Basophils % 0.1 %; Eosinophils # 0.1 10^3/uL (0.0-0.8); Eosinophils % 0.9 %; Hematocrit 27.3 % (36-47); Lymphocytes # 0.7 10^3/uL (0.8-4.8); Lymphocytes % 5.6 %; Mean Corpuscular HGB Conc 27.8 g/dL (30-55); Mean Corpuscular Hemoglobin 24.2 pg (27-33); Mean Corpuscular Volume 86.9 fl (85-98); Monocytes # 0.8 10^3/uL (0.2-0.9); Monocytes % 6.1 %; Neutrophils # 10.87 10^3/uL (1.8-7.7); Neutrophils % 86.5 %; Nucleated Red Blood Cells % 0 %; Platelet Count 146 10^3/cmm (157-399); Red Blood Count 3.14 10^6/uL (3.85-5.65); Red Cell Distribution Width 18.4 % (12.1-15.1); White Blood Count 12.56 10^3/uL (3.29-11.43)
[2025-02-05 03:16] LABS: Alanine Aminotransferase 20 U/L (0-33); Albumin Level 4.1 g/dL (3.5-5.2); Alkaline Phosphatase 126 U/L (35-105); Aspartate Amino Transferase 13 U/L (0-32); Blood Urea Nitrogen 30 mg/dL (8-23); Calcium 8.7 mg/dL (8.5-10.5); Carbon Dioxide 39 mmol/L (22-29); Chloride 91 mmol/L (98-107); Globulin 1.9 g/dL (1.3-4.6); Glucose 120 mg/dL (65-115); Osmolality Calculated 293 mOsm/kg (285-295); Sodium 138 mmol/L (136-145); Total Bilirubin 0.3 mg/dL (0.15-1.2)
[2025-02-05 03:22] LABS: Magnesium 1.9 mg/dL (1.7-2.3)
[2025-02-05] MEDS: cefTRIAXone 2,000 mg SDV 2000 MG IVP ×2 (03:23→14:40)
[2025-02-05] MEDS: ALPRAZolam 0.5 mg Tablet PO (03:52)
[2025-02-05] MEDS: levoFLOXacin 750 mg Tablet PO (05:18)
[2025-02-05] MEDS: ampicillin 2,000 MG in sodium chloride 0.9% (plus) 50 ML 100 MG IV ×4 (05:18→22:49)
[2025-02-05] MEDS: acetaZOLAMIDE 250 mg Tablet PO (08:23)
[2025-02-05] MEDS: buprenorphine-naloxone 4-1 mg Film 2 EACH SUBLINGUAL ×3 (08:23→20:28)
[2025-02-05] MEDS: pantoprazole DR 40 mg Tablet PO ×2 (08:23→17:02)
[2025-02-05] MEDS: roflumilast 500 mcg Tablet PO (08:23)
[2025-02-05] MEDS: atorvastatin 40 mg Tablet 20 MG PO (08:23)
[2025-02-05] MEDS: metoprolol tartrate 25 mg Tablet PO ×2 (08:23→17:02)
[2025-02-05] MEDS: levothyroxine 50 mcg Tablet PO (08:23)
[2025-02-05] MEDS: magnesium oxide 400 mg tablet PO (08:23)
[2025-02-05] MEDS: benzonatate 100 mg Capsule 200 MG PO ×3 (08:23→20:28)
[2025-02-05] MEDS: sennosides-docusate Tablet 1 TAB PO (08:23)
[2025-02-05] MEDS: apixaban 5 mg Tablet PO ×2 (08:23→20:28)
[2025-02-05] MEDS: calcitriol 0.25 mcg Capsule 0.5 MCG PO (08:23)
[2025-02-05] MEDS: bumetanide 0.25 mg/mL SDV 4 mL 1 MG IVP ×2 (08:24→17:02)
[2025-02-05] MEDS: mupirocin oint 22 gm 1 APPLIC TOPICAL ×2 (10:01→17:24)
--- NOTE | 2025-02-05 10:41 | PM.PN ---
Subjective Subjective: Patient wasInitially wanted to go home. She was seen by wound care. She continued to have increasing swelling and pain to her left upper extremity. Following wound care assessment she decided to proceed with [facility]. This was discussed with patient and her son. Discharge was then held. Vitals/I&O/Wt Last Vital Signs Temp 98.0 F 02/05/25 07:18 Pulse 89 02/05/25 08:15 Resp 20 H 02/05/25 08:15 BP 108/62 02/05/25 07:18 Pulse Ox 94 02/05/25 08:15 O2 Del Method Nasal Cannula 02/05/25 08:15 O2 Flow Rate 3 02/05/25 08:15 FiO2 3 02/03/25 15:03 02/04/25 02/05/25 02/05/25 22:59 06:59 14:59 Intake Total 290 / 1420 50 / 1470 50 / 50 Output Total 450 / 450 0 / 450 Balance -160 / 970 50 / 1020 50 / 50 Weight last 48 hrs Weight 50.938 kg Weight 52.662 kg Physical Exam Narrative: General: Patient is awake. Frail-appearing. tearful. wanting to go home Head: Temporal wasting. Neck: No JVD. Cardiovascular: No gallops. Pansystolic murmur at apex radiating to anterior axillary line 2/6, early diastolic murmur at aortic region radiating to apex. 2+ pitting edema bilateral lower extremities extending up to thighs, Lungs: Poor air movement overall. on 3L via NC Skin: No jaundice. No rashes. Abdomen: Normal bowel sounds, abdomen soft and nontender. Extremities: No cyanosis or clubbing. Musculoskeletal: No swollen or erythematous joints. Neurological: Moves all 4 extremities. No myoclonus. Urinary Catheter Management: Mayer Latex: Cath Placed During This Visit: yes, but has since been removed by the nurse Reason for Continuing Indwelling Catheter: Other Urinary Catheter Date of Insertion: 01/28/25 Urinary Catheter Time of Insertion: 11:46 Date Urinary Catheter Removed: 02/01/25 Time Urinary Catheter Discontinued: 13:45 Data 02/05/25 02:12 02/05/25 02:12 Micro: Microbiology 01/27/25 18:36 Blood Culture - Final Blood Enterococcus faecalis A&P Assessment and plan (1) Sepsis: (2) Infection due to Port-A-Cath: (3) Endocarditis: (4) Enterococcus faecalis infection: (5) Bacteremia: (6) Presence of permanent cardiac pacemaker: (7) Chronic diastolic heart failure: (8) Metabolic alkalosis: (9) Atrial fibrillation: Qualifiers: Atrial fibrillation type: persistent (not longstanding) Qualified Code(s): I48.19 - Other persistent atrial fibrillation (10) PVD (peripheral vascular disease): (11) Acquired hypothyroidism: (12) Dysuria: (13) Anemia: Qualifiers: Anemia type: iron deficiency Iron deficiency anemia type: inadequate dietary iron intake Qualified Code(s): D50.8 - Other iron deficiency anemias (14) Port-A-Cath in place: Plan Sepsis Complicated by Enterococcus Faecalis Bacteremia - Persistent Enterococcus faecalis bacteremia with repeat blood cultures from 01/27/2025 so far negative. - Echocardiogram shows echogenic structure in right atrium near tricuspid valve, concerning for port infection and infective endocarditis. - ASPEN could not be performed due to history of esophageal burn during laryngeal cancer treatment. - Port removal attempted but unsuccessful. Differential Diagnosis: 1. Port infection with secondary infective endocarditis. 2. Persistent bacteremia from another source. Plan: 1. Repeat blood cultures from 02/01/2025 remain negative 2. Continue IV ampicillin and ceftriaxone per Infectious Disease recommendations. 3.Zoyvox added today 4. Levaquin from prior bacteremia Chronic Hypoxic Respiratory Failure - Currently on 3L oxygen supplementation in the setting of diastolic congestive heart failure and left lower lobe pneumonia. Plan: 1. Continue supplemental oxygen support. Acute on Chronic Diastolic Heart Failure with Preserved Ejection Fraction with Exacerbation - Currently Euvolemic Plan: 1. Hold IV Bumex 1 mg every 12 hours. 2. Fluid restriction to less than 1500 mL. Chronic Obstructive Pulmonary Disease (COPD) with Exacerbation - Finished treatment for COPD exacerbation. Plan: 1. Continue home nebulization. -2. Wean oxygen as tolerated Anemia, Chronic - Hemoglobin stable. Plan: 1. Stable Peripheral Vascular Disease Plan: 1. Continue cilostazol. Acute Renal Failure - Acute kidney injury has resolved. Today slightly increased. Plan: 1. Monitor renal function. 2. Strict intake and output charting. 3. Discontinue diamox - hold diuretics today 4. Renally dose medications as needed. Atrial Fibrillation Plan: 1. Continue Eliquis 5 mg twice daily Plan for the Day: - Wound care consult - Zyvox added - Held Bumex - D/C Diamox Discharge Plan: - [place] would like to d/c to SNF - Discharge held - Plan to discuss with CM in am PDMP PDMP Reviewed: Not Reviewed Attestations Medical Necessity Statement*: Requires further hospitalization for management of infective endocarditis, port infection with persistent Enterococcus bacteremia, stenotrophomonas s pneumonia Coding Level of Care Code Acute Code for [facility] Diagnoses Sepsis A41.9 Infection due to Port-A-Cath T80.219A Endocarditis I38 Enterococcus faecalis infection A49.8 Bacteremia R78.81 Presence of permanent cardiac pacemaker Z95.0 Chronic diastolic heart failure I50.32 Metabolic alkalosis E87.3 Persistent atrial fibrillation I48.19 Atrial fibrillation type: persistent (not longstanding) PVD (peripheral vascular disease) I73.9 Acquired hypothyroidism E03.9 Dysuria R30.0 Iron deficiency anemia secondary to inadequate dietary iron intake D50.8 Anemia type: iron deficiency Iron deficiency anemia type: inadequate dietary iron intake Port-A-Cath in place Z95.828
[2025-02-05] MEDS: linezolid 600 mg Tablet PO ×2 (11:28→22:49)
--- NOTE | 2025-02-05 15:58 | P.CONIM_ITS ---
<Statement entered by Guillaume Solomon MD - 02/05/25 16:54> I have reviewed the documentation and plan of care and agree with the assessment and plan of care as written. Dr. Guillaume Solomon Providers/Reason For Consult 2 Consulting Physician/Specialty*: Wound Care Reason for Consult*: Open wounds to left forearm Requesting Physician: Dr. Velarde Attending Physician: Dr. Jessa Velarde Primary Care Provider: Roger Reynoso DO History of Present Illness History of Present Illness Sakina Lombardi is a 74 year old female with multiple comorbidities who has been hospitalized for Enterococcus faecalis bacteremia. She has been hospitalized since January 24. She has received vancomycin, ampicillin, and ceftriaxone for treatment of the bacteremia. Her blood culture from February 01 remains negative. She was noted to have a skin tear on her left forearm and wound care was consulted for recommendations on this. She is afebrile at this time. Dr. Gross has ordered mupirocin to the wounds topically. She has 2+ pitting edema noted to her left forearm. Her radial pulse is palpable. She is unable to completely flex her hand due to edema. She is able to extend and move her fingers freely. She is very tender upon palpation the wounds to her left arm. She is currently agreeing to go to a group home for care after discharge. Review of Systems 2 Const: Denies: fever(s), chills or body aches Card: Denies: chest pain Resp: Denies: dyspnea Skin/Breast: Reports: sores (left arm) Medications/Allergies Home Medications ?Medication ?Instructions ?Recorded ?Confirmed ?Last Taken ?Type nitroglycerin 0.4 mg sublingual 0.4 mg sublingual Q5M PRN Chest 07/27/23 01/25/25 11/12/23 History tablet (Nitrostat) Pain magnesium oxide 400 mg PO DAILY 11/12/2301/24/25 History albuterol sulfate 90 mcg/actuation 2 puff inhalation Q 4H PRN 12/16/23 01/25/25 Unknown Rx aerosol inhaler shortness of breath or wheez ing #6.7 grams buprenorphine 8 mg-naloxone 2 mg 1 film buccal TID 01/25/25 01/24/25 History sublingual film (Suboxone) nicotine See Rx Instructions transder mal 08/08/24 01/25/25 Unknown Rx 21mg/24hr-14mg/24hr-7mg/24hr daily .COMPLEX #56 patche s transderm patches,sequentl loratadine 10 mg tablet 10 mg PO DAILY #30 tabs 07/3001/25/25 01/24/25 Rx roflumilast 500 mcg tablet 500 mcg PO DAILY #30 tabs 1 12/03/23 01/25/25 Unknown Rx fluticasone propionate 50 2 spray intranasal DAILY sin us 11/02/24 01/25/25 Unknown Rx mcg/actuation nasal congestion #16 grams spray,suspension cilostazol 50 mg tablet 50 mg PO BID #90 tabs 01/25/25 Unknown Rx levothyroxine 50 mcg tablet 50 mcg PO DAILY thyroid #9 0 tabs 11/16/24 01/25/25 01/24/25 Rx pantoprazole 40 mg tablet,delayed 40 mg PO BID #90 tab s 11/28/24 01/25/25 01/24/25 Rx release metoprolol tartrate 25 mg tablet 25 mg PO BID #180 tab s 12/27/24 01/25/25 01/24/25 Rx atorvastatin 20 mg tablet 20 mg PO DAILY 01/25/25/06/2201/24/25 History baclofen 10 mg tablet 10 mg PO Q8H PRN muscle spas ms 01/25/25 01/25/25 Unknown History bumetanide 1 mg tablet 1 mg PO BID PRN Edema 01/25/25 01/24/25 History calcitriol 0.5 mcg capsule 0.5 mcg PO DAILY 01/25/25 0 01/25/25 01/24/25 History ferrous sulfate 325 mg (65 mg 325 mg PO DAILY microcyt ic anemia 01/29/25 Unknown Rx iron) tablet,delayed release #30 tabs apixaban 5 mg tablet (Eliquis) 5 mg PO BID@0900,2100 # 60 tabs 02/05/25 Unknown Rx linezolid 600 mg tablet 600 mg PO Q12H 5 days #10 ta bs 02/05/25 Unknown Rx Allergies Allergy/AdvReac Type Severity Reaction Status Date / Time amiodarone Allergy Severe ADR-Confusi Verified 01/24/25 19:21 on 2-octyl cyanoacrylate Allergy ALGY-Rash Verified 01/24/25 19:21 adhesive tape Allergy ALGY-Rash Verified 01/24/25 19:21 amitriptyline Allergy ALGY-Hives Verified 01/24/25 19:21 gabapentin Allergy ALGY-Hives Verified 01/24/25 19:21 ibuprofen Allergy ALGY-Hives Verified 01/24/25 19:21 metronidazole (From Flagyl) Allergy ALGY-Hives Verified 01/24/25 19:21 Sulfa (Sulfonamide Allergy ALGY-Hives Verified 01/24/25 19:21 Antibiotics) sulfamethoxazole (From Allergy ALGY-Difficulty Verified 01/24/25 19:21 Bactrim) Breathing tetracycline Allergy ALGY-Hives Verified 01/24/25 19:21 trimethoprim Allergy ALGY-Hives Verified 01/24/25 19:21 Current Medications Generic Name Dose Route Start Last Admin Trade Name Freq PRN Reason Stop Dose Admin Acetazolamide 250 mg 01/31/25 13:25 02/05/25 08:23 Acetazolamide 250 Mg Tablet PO 250 mg DAILY ALEXA Administration Albuterol/Ipratropium 3 ml 01/25/25 08:00 02/05/25 13:35 Ipratropium-Albuterol 3 Ml Neb INHALATION 3 ml Q6H.RESP ALEXA Administration Alprazolam 0.5 mg 02/02/25 10:20 02/05/25 03:52 Alprazolam 0.5 Mg Tablet PO 0.5 mg TID PRN Administration ANXIETY Apixaban 5 mg 02/02/25 21:00 02/05/25 08:23 Apixaban 5 Mg Tablet PO 5 mg BID@0900,2100 ALEXA Administration Atorvastatin Calcium 20 mg 01/30/25 09:00 02/05/25 08:23 Atorvastatin 40 Mg Tablet PO 20 mg DAILY ALEXA Administration Benzocaine 1 each 01/31/25 17:08 01/31/25 17:33 Cetylpyridinium Lozenge MUCOUS MEM 1 each Q2H PRN Administration SORE THROAT Benzonatate 200 mg 02/01/25 15:00 02/05/25 08:23 Benzonatate 100 Mg Capsule PO 200 mg TID ALEXA Administration Bumetanide 1 mg 02/03/25 16:30 02/05/25 08:24 Bumetanide 0.25 Mg/Ml Sdv 4 Ml IVP 1 mg 0800,1600 ALEXA Administration Buprenorphine/Naloxone 2 each 01/24/25 21:00 02/05/25 08:23 Buprenorphine-Naloxone 4-1 Mg Film SUBLINGUAL 2 each TID ALEXA Administration Calcitriol 0.5 mcg 01/25/25 09:00 02/05/25 08:23 Calcitriol 0.25 Mcg Capsule PO 0.5 mcg DAILY ALEXA Administration Ceftriaxone Sodium 2,000 mg 01/31/25 14:15 02/05/25 14:40 Ceftriaxone 2,000 Mg Sdv IVP 2,000 mg Q12H ALEXA Administration Protocol Cilostazol 50 mg 01/29/25 18:00 01/31/25 17:33 Cilostazol 100 Mg Tablet PO 50 mg BID ALEXA Administration Lidocaine HCl 15 ml/ 0 ml 01/31/25 17:08 01/31/25 17:32 Diphenhydramine HCl 37.5 mg/ MUCOUS MEM 45 ml Al Hydrox/Mg Hydrox/ Q4H PRN Administration Simethicone 15 ml MOUTH PAIN Guaifenesin 1,200 mg 01/25/25 11:22 01/27/25 09:24 Guaifenesin 600 Mg Tablet PO 1,200 mg BID PRN Administration congestion Ampicillin Sodium 2,000 mg/ 50 mls @ 100 mls/hr 02/01/25 20:30 02/05/25 15:14 Sodium Chloride IV Infused Q6H ALEXA Infusion Protocol Lanolin 1 applic 01/25/25 20:33 01/26/25 02:27 Lanolin Oint 7 Gm TOPICAL 1 applic PRN PRN Administration DRYNESS Levofloxacin 750 mg 02/05/25 06:00 02/05/25 05:18 Levofloxacin 750 Mg Tablet PO 02/09/25 23:59 750 mg Q48H ALEXA Administration Protocol Levothyroxine Sodium 50 mcg 01/25/25 09:00 02/05/25 08:23 Levothyroxine 50 Mcg Tablet PO 50 mcg DAILY ALEXA Administration Linezolid 600 mg 02/05/25 10:30 02/05/25 11:28 Linezolid 600 Mg Tablet PO 02/10/25 10:29 600 mg Q12H ALEXA Administration Protocol Magnesium Oxide 400 mg 01/27/25 09:00 02/05/25 08:23 Magnesium Oxide 400 Mg Tablet PO 400 mg DAILY ALEXA Administration Metoprolol Tartrate 25 mg 01/25/25 09:00 02/05/25 08:23 Metoprolol Tartrate 25 Mg Tablet PO 25 mg BID ALEXA Administration Mupirocin 1 applic 02/04/25 18:00 02/05/25 10:01 Mupirocin Oint 22 Gm TOPICAL 1 applic BID ALEXA Administration Pantoprazole Sodium 40 mg 01/25/25 09:00 02/05/25 08:[address] 40 Mg Tablet PO 40 mg BID ALEXA Administration Roflumilast 500 mcg 01/25/25 09:00 02/05/25 08:23 Roflumilast 500 Mcg Tablet PO 500 mcg DAILY ALEXA Administration Senna/Docusate Sodium 1 tab 01/25/25 09:00 02/05/25 08:23 Sennosides-Docusate Tablet PO 1 tab DAILY ALEXA Administration Tramadol HCl 50 mg 02/04/25 15:31 02/04/25 18:18 Tramadol 50 Mg Tablet PO 50 mg Q6H PRN Administration MODERATE PAIN Zolpidem Tartrate 5 mg 01/30/25 13:54 02/04/25 20:40 Zolpidem 5 Mg Tablet PO 5 mg BEDTIME PRN Administration INSOMNIA PFSH Acute 2 PFSH: Medical History (Updated 02/05/25 @ 16:30 by MARBELLA Carreon) Tobacco dependence Weakness Passed out Syncope Localized swelling of both lower legs Lung nodule Skin lesions Dyslipidemia (high LDL; low HDL) Acute exacerbation of chronic obstructive pulmonary disease Lump of right breast Lung cancer right lower lobe Left shoulder pain Avulsion fracture of left talus Skin tear of right upper arm without complication Orthopnea Sinus node dysfunction Sinus pause Bradycardia Orthostatic hypotension Hypovitaminosis D Seizure-like activity Syncopal episodes Nicotine dependence, cigarettes, with unspecified nicotine-induced disorders Sacral decubitus ulcer Chronic rhinosinusitis Infected epidermoid cyst Fall Cor pulmonale Cor pulmonale Leg pain, left Nicotine addiction Chronic respiratory failure with hypoxia Aortic cusp regurgitation Actinic keratosis due to exposure to sunlight Closed intertrochanteric fracture of right hip Smoking addiction Chronic pain Thyroid cancer SOB (shortness of breath) History of COPD CVA (cerebral vascular accident) Benign essential hypertension CAD (coronary artery disease) Hx of carotid stenosis Leg pain, medial Neck strain COPD (chronic obstructive pulmonary disease) Plantar porokeratosis, acquired Surgical History Status post cardiac pacemaker procedure History of bronchoscopy History of hip surgery Hx of hysterectomy History of bilateral carpal tunnel release History of lumpectomy History of rectal surgery History of ankle surgery Status post open reduction and internal fixation (ORIF) of fracture H/O thyroidectomy S/P hardware removal Spine History of back surgery Port-A-Cath in place Family History Brother Leukemia Diabetes Lung disease Mother Anesthesia complication CAD (coronary artery disease) Father Bleeding disorder Clotting disorder CAD (coronary artery disease) Cancer Stroke Sister CAD (coronary artery disease) Chronic kidney disease (CKD) Lung disease Family/Other Diabetes Stroke Grandfather Suicide Denies family history of Dementia Social History Smoking and tobacco/nicotine status: never used tobacco/nicotine Quit status (tobacco/nicotine): considering quitting Second hand smoke exposure: Yes Alcohol intake: never Substance/Drug Use: current Other substance/drug use details: Couple of months ago Gummies Adopted: No Lives independently: Yes Household members: none Housing: Apartment Marital status: / Current occupational status: disabled Do you think of yourself as: Straight/Heterosexual Current gender identity: Female Vitals/I&O/Wt Last Vital Signs Temp 97.5 F L 02/05/25 15:47 Pulse 84 02/05/25 15:47 Resp 20 H 02/05/25 15:47 BP 118/65 02/05/25 15:47 Pulse Ox 100 02/05/25 15:47 O2 Del Method Nasal Cannula 02/05/25 15:47 O2 Flow Rate 3 02/05/25 13:36 FiO2 3 02/03/25 15:03 02/05/25 02/05/25 02/05/25 06:59 14:59 22:59 Intake Total 50 / 1470 730 / 730 50 / 780 Output Total 0 / 450 Balance 50 / 1020 730 / 730 50 / 780 Weight last 48 hrs Weight 50.938 kg Weight 52.662 kg Physical Exam 2 Const: COMMON NORMALS: no acute distress, patient oriented x3 and alert G ENERAL APPEARANCE: cooperative ORIENTATION/CONSCIOUSNESS: Yes awake, Yes oriented to person, Yes oriented to place and Yes oriented to time Eye: GENERAL EYE: appearance normal, both eyes and all related structures Neck/C-Spine: GENERAL: Yes normal visual inspection Chest: CHEST: Yes Symmetrical chest wall rise Resp: COMMON NORMALS: normal respiratory effort EFFORT & INSPECTION: Yes able to speak in complete sentences OTHER: wearing nasal cannula Cardio: COMMON NORMALS: regular rate RATE: regular rate Extremity: LEFT UPPER EXTREMITY: Yes lower arm (open wounds, see wound assessment) Left lower arm: Yes inspection (edematous), Yes palpation (pitting edema) and Yes neurovascular exam (2+ radial pulse) Neuro: COMMON NORMALS: patient oriented x3 SENSORIUM/ORIENTATION: Yes alert, Yes oriented to person, Yes oriented to place and Yes oriented to time SPEECH: speech normal Psych: COMMON NORMALS: cooperative and speech normal ATTITUDE: Yes calm ACTIVITY/MOTOR BEHAVIOR: Yes appropriate eye contact SPEECH: Yes normal speech Skin: WOUNDS: Yes wounds noted (see wound assessment) Data 02/05/25 02:12 02/05/25 02:12 Micro: Microbiology 01/27/25 18:36 Blood Culture - Final Blood Enterococcus faecalis A&P Assessment and plan (1) Open wound of left forearm: Upon evaluation there are 2 open ulcerations to the left forearm, one near her elbow, and one to her mid forearm, distal. Both wounds were cleansed with saline and gauze. The wound closest to her elbow appears to be from a skin tear. The wound to her mid forearm, distal, is an atypical presentation of a skin tear. The patient reports she has never had a wound or non healing lesion in this area before that she can remember. Currently, she is being treated with mupirocin topically to the wounds. At this time, she is unable to tolerate any dressing that may stick to the wound beds. Therefore, we will continue utilizing mupirocin to the wound twice daily covered by nonwoven gauze secured with rolled gauze. This should be removed with saline or sterile water for ease of removal. Ms. Lombardi was counseled extensively regarding arm elevation to decrease edema. Nutrition will also be extremely important for wound healing. As of now, she is agreeable to go to longterm facility after discharge. This would be very beneficial for Ms. Lombardi given her current health status and ongoing need for wound care as well as IV antibiotics. I have discussed with Dr. Velarde the atypical presentation of the wound on her left forearm and the potential causes of this. Dr. Velarde, who has also discussed this with Dr. Gross both concur that Ms. Lombardi has a low risk for upper extremity thrombus with current anticoagulation therapy. The status of her arm will be monitored closely for any changes or decline. Qualifiers: Encounter type: initial encounter Qualified Code(s): S51.802A - Unspecified open wound of left forearm, initial encounter PDMP PDMP Reviewed: Not Reviewed Consult Attestations 2 Time Spent in Patient Care: 16 - 35 minutes Coding Level of Care Code Acute Code for Chg Fwd Diagnoses Open wound of left forearm, initial encounter S51.802A Encounter type: initial encounter Wound Assessment Wound Assessment Wound Number 1 Forearm: Descriptor: Left and Proximal Primary Etiology:: Skin Tear Length: (cm): 4.5 cm Width: (cm): 1 cm Depth: (cm): 0.1 cm Epithelialization:: None Tunneling:: No Undermining:: No Limited to Skin Breakdown: Yes Exudate Amount:: Small Drainage Type: Serosanguineous Foul Odor After Cleansing:: No Slough/Fibrin?: Yes Granulation Amount: Small (1-33%) Granulation Quality:: [place] Necrotic Amount:: Medium (34-66%) Necrotic Type:: Adherent Slough Wound Number 2 Forearm: Descriptor: Left and Distal Primary Etiology:: To Be Determined Length: (cm): 5 cm Width: (cm): 6 cm Depth: (cm): 0.1 cm Epithelialization:: None Tunneling:: No Undermining:: No Exudate Amount:: Medium Drainage Type: Serosanguineous Foul Odor After Cleansing:: No Slough/Fibrin?: Yes Granulation Amount: None Necrotic Amount:: Medium (34-66%) Necrotic Type:: Adherent Slough Wound Orders All Wounds: distal and proximal left forearm Dressing change frequency: Twice Daily Wound Cleansing: Saline Primary Wound Care Dressing: mupirocin 2% Secondary Wound Care Dressing: non-woven gauze
[2025-02-05] MEDS: zolpidem 5 mg Tablet PO (22:56)
[2025-02-06] VITALS (11 sets, daily range): BP systolic 113–138; BP diastolic 42–72; PULSE 72–94; RESP 16–19; TEMP 36.4–36.6; O2SAT 93–99; BMI 21.9
[2025-02-06] MEDS: ipratropium-albuterol 3 mL Neb INHALATION ×3 (02:06→21:24)
[2025-02-06] MEDS: cefTRIAXone 2,000 mg SDV 2000 MG IVP ×2 (02:35→14:14)
[2025-02-06] MEDS: ampicillin 2,000 MG in sodium chloride 0.9% (plus) 50 ML 100 MG IV ×4 (05:26→23:06)
[2025-02-06 05:46] LABS: Basophils % 0.1 %; Eosinophils # 0.1 10^3/uL (0.0-0.8); Eosinophils % 0.8 %; Hematocrit 27.2 % (36-47); Lymphocytes # 0.7 10^3/uL (0.8-4.8); Lymphocytes % 5.7 %; Mean Corpuscular HGB Conc 27.6 g/dL (30-55); Mean Corpuscular Hemoglobin 23.7 pg (27-33); Mean Corpuscular Volume 85.8 fl (85-98); Mean Platelet Volume 9.8 fL (7.4-10.4); Monocytes # 0.7 10^3/uL (0.2-0.9); Monocytes % 5.5 %; Neutrophils % 87.1 %; Nucleated Red Blood Cells % 0 %; Platelet Count 125 10^3/cmm (157-399); Red Blood Count 3.17 10^6/uL (3.85-5.65); Red Cell Distribution Width 18.6 % (12.1-15.1); White Blood Count 11.82 10^3/uL (3.29-11.43)
[2025-02-06 06:03] LABS: Magnesium 1.9 mg/dL (1.7-2.3)
[2025-02-06 06:04] LABS: Alanine Aminotransferase 16 U/L (0-33); Alkaline Phosphatase 126 U/L (35-105); Anion Gap 12.6 (5-19); Aspartate Amino Transferase 12 U/L (0-32); Blood Urea Nitrogen 27 mg/dL (8-23); Calcium 8.3 mg/dL (8.5-10.5); Carbon Dioxide 38 mmol/L (22-29); Chloride 91 mmol/L (98-107); Globulin 2.6 g/dL (1.3-4.6); Glucose 131 mg/dL (65-115); Osmolality Calculated 293 mOsm/kg (285-295); Potassium 3.6 mmol/L (3.5-5.1); Sodium 138 mmol/L (136-145); Total Bilirubin 0.2 mg/dL (0.15-1.2); Total Protein 6.6 g/dL (6.6-8.7)
[2025-02-06] MEDS: atorvastatin 40 mg Tablet 20 MG PO (08:43)
[2025-02-06] MEDS: metoprolol tartrate 25 mg Tablet PO ×2 (08:43→17:25)
[2025-02-06] MEDS: pantoprazole DR 40 mg Tablet PO ×2 (08:43→17:25)
[2025-02-06] MEDS: magnesium oxide 400 mg tablet PO (08:43)
[2025-02-06] MEDS: levothyroxine 50 mcg Tablet PO (08:43)
[2025-02-06] MEDS: benzonatate 100 mg Capsule 200 MG PO ×3 (08:43→20:36)
[2025-02-06] MEDS: mupirocin oint 22 gm 1 APPLIC TOPICAL ×2 (08:44→17:24)
[2025-02-06] MEDS: buprenorphine-naloxone 4-1 mg Film 2 EACH SUBLINGUAL ×3 (08:44→20:36)
[2025-02-06] MEDS: calcitriol 0.25 mcg Capsule 0.5 MCG PO (08:44)
[2025-02-06] MEDS: sennosides-docusate Tablet 1 TAB PO (08:44)
[2025-02-06] MEDS: apixaban 5 mg Tablet PO ×2 (08:46→20:36)
[2025-02-06] MEDS: roflumilast 500 mcg Tablet PO (08:47)
[2025-02-06] MEDS: TRAMadol 50 mg Tablet PO ×2 (09:06→20:36)
[2025-02-06] MEDS: linezolid 600 mg Tablet PO ×2 (11:36→23:06)
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
--- NOTE | 2025-02-06 15:32 | P.CONIM_ITS ---
<Statement entered by Guillaume Solomon MD - 02/07/25 08:01> I have reviewed the documentation and plan of care and agree with the assessment and plan of care as written. If Ms. Lombardi continues to have exquisite discomfort in her left upper extremity, particularly with motion of her hand or fingers, as the exact etiology of her left upper extremity edema is still unclear, it would be advantageous to confirm she is not developing compartment syndrome. Dr. Guillaume Solomon Providers/Reason For Consult 2 Consulting Physician/Specialty*: Wound Care Reason for Consult*: Open wounds to left forearm Requesting Physician: Dr. Velarde Attending Physician: Jessa Velarde Primary Care Provider: Roger Reynoso DO History of Present Illness History of Present Illness Ms. Lombardi is resting in bed today upon entering her room with her left arm dependent. She states she has not been elevating her arm because she has not had any pillows to elevate it on. She has a clean dry and intact dressing to her left forearm. She can partially flex her hand due to the edema. She is unable to completely flex her elbow due to the edema. She is noted to have erythema and edema to her left upper extremity. She has a documented pressure injury to her sacrum. She plans to go to the group home upon discharge. Review of Systems 2 Const: Denies: fever(s), chills or body aches Card: Denies: chest pain Resp: Denies: dyspnea Skin/Breast: Reports: sores (left arm) Medications/Allergies Home Medications ?Medication ?Instructions ?Recorded ?Confirmed ?Last Taken ?Type nitroglycerin 0.4 mg sublingual 0.4 mg sublingual Q5M PRN Chest 07/27/23 01/25/25 11/12/23 History tablet (Nitrostat) Pain magnesium oxide 400 mg PO DAILY 11/12/2301/24/25 History albuterol sulfate 90 mcg/actuation 2 puff inhalation Q 4H PRN 12/16/23 01/25/25 Unknown Rx aerosol inhaler shortness of breath or wheez ing #6.7 grams buprenorphine 8 mg-naloxone 2 mg 1 film buccal TID 01/25/25 01/24/25 History sublingual film (Suboxone) nicotine See Rx Instructions transder mal 08/08/24 01/25/25 Unknown Rx 21mg/24hr-14mg/24hr-7mg/24hr daily .COMPLEX #56 patche s transderm patches,sequentl loratadine 10 mg tablet 10 mg PO DAILY #30 tabs 07/3001/25/25 01/24/25 Rx roflumilast 500 mcg tablet 500 mcg PO DAILY #30 tabs 1 12/03/23 01/25/25 Unknown Rx fluticasone propionate 50 2 spray intranasal DAILY sin us 11/02/24 01/25/25 Unknown Rx mcg/actuation nasal congestion #16 grams spray,suspension cilostazol 50 mg tablet 50 mg PO BID #90 tabs 01/25/25 Unknown Rx levothyroxine 50 mcg tablet 50 mcg PO DAILY thyroid #9 0 tabs 11/16/24 01/25/25 01/24/25 Rx pantoprazole 40 mg tablet,delayed 40 mg PO BID #90 tab s 11/28/24 01/25/25 01/24/25 Rx release metoprolol tartrate 25 mg tablet 25 mg PO BID #180 tab s 12/27/24 01/25/25 01/24/25 Rx atorvastatin 20 mg tablet 20 mg PO DAILY 01/25/25/06/2201/24/25 History baclofen 10 mg tablet 10 mg PO Q8H PRN muscle spas ms 01/25/25 01/25/25 Unknown History bumetanide 1 mg tablet 1 mg PO BID PRN Edema 01/25/25 01/24/25 History calcitriol 0.5 mcg capsule 0.5 mcg PO DAILY 01/25/25 0 01/25/25 01/24/25 History ferrous sulfate 325 mg (65 mg 325 mg PO DAILY microcyt ic anemia 01/29/25 Unknown Rx iron) tablet,delayed release #30 tabs apixaban 5 mg tablet (Eliquis) 5 mg PO BID@0900,2100 # 60 tabs 02/05/25 Unknown Rx linezolid 600 mg tablet 600 mg PO Q12H 5 days #10 ta bs 02/05/25 Unknown Rx Allergies Allergy/AdvReac Type Severity Reaction Status Date / Time amiodarone Allergy Severe ADR-Confusi Verified 01/24/25 19:21 on 2-octyl cyanoacrylate Allergy ALGY-Rash Verified 01/24/25 19:21 adhesive tape Allergy ALGY-Rash Verified 01/24/25 19:21 amitriptyline Allergy ALGY-Hives Verified 01/24/25 19:21 gabapentin Allergy ALGY-Hives Verified 01/24/25 19:21 ibuprofen Allergy ALGY-Hives Verified 01/24/25 19:21 metronidazole (From Flagyl) Allergy ALGY-Hives Verified 01/24/25 19:21 Sulfa (Sulfonamide Allergy ALGY-Hives Verified 01/24/25 19:21 Antibiotics) sulfamethoxazole (From Allergy ALGY-Difficulty Verified 01/24/25 19:21 Bactrim) Breathing tetracycline Allergy ALGY-Hives Verified 01/24/25 19:21 trimethoprim Allergy ALGY-Hives Verified 01/24/25 19:21 Current Medications Generic Name Dose Route Start Last Admin Trade Name Freq PRN Reason Stop Dose Admin Albuterol/Ipratropium 3 ml 01/25/25 08:00 02/06/25 13:33 Ipratropium-Albuterol 3 Ml Neb INHALATION Not Given Q6H.RESP ALEXA Apixaban 5 mg 02/02/25 21:00 02/06/25 08:46 Apixaban 5 Mg Tablet PO 5 mg BID@0900,2100 ALEXA Administration Atorvastatin Calcium 20 mg 01/30/25 09:00 02/06/25 08:43 Atorvastatin 40 Mg Tablet PO 20 mg DAILY ALEXA Administration Benzocaine 1 each 01/31/25 17:08 01/31/25 17:33 Cetylpyridinium Lozenge MUCOUS MEM 1 each Q2H PRN Administration SORE THROAT Benzonatate 200 mg 02/01/25 15:00 02/06/25 14:13 Benzonatate 100 Mg Capsule PO 200 mg TID ALEXA Administration Bumetanide 1 mg 02/03/25 16:30 02/05/25 17:02 Bumetanide 0.25 Mg/Ml Sdv 4 Ml IVP 1 mg 0800,1600 ALEXA Administration Buprenorphine/Naloxone 2 each 01/24/25 21:00 02/06/25 14:14 Buprenorphine-Naloxone 4-1 Mg Film SUBLINGUAL 2 each TID ALEXA Administration Calcitriol 0.5 mcg 01/25/25 09:00 02/06/25 08:44 Calcitriol 0.25 Mcg Capsule PO 0.5 mcg DAILY ALEXA Administration Ceftriaxone Sodium 2,000 mg 01/31/25 14:15 02/06/25 14:14 Ceftriaxone 2,000 Mg Sdv IVP 2,000 mg Q12H ALEXA Administration Protocol Cilostazol 50 mg 01/29/25 18:00 01/31/25 17:33 Cilostazol 100 Mg Tablet PO 50 mg BID ALEXA Administration Lidocaine HCl 15 ml/ 0 ml 01/31/25 17:08 01/31/25 17:32 Diphenhydramine HCl 37.5 mg/ MUCOUS MEM 45 ml Al Hydrox/Mg Hydrox/ Q4H PRN Administration Simethicone 15 ml MOUTH PAIN Guaifenesin 1,200 mg 01/25/25 11:22 01/27/25 09:24 Guaifenesin 600 Mg Tablet PO 1,200 mg BID PRN Administration congestion Ampicillin Sodium 2,000 mg/ 50 mls @ 100 mls/hr 02/01/25 20:30 02/06/25 12:22 Sodium Chloride IV Infused Q6H ALEXA Infusion Protocol Lanolin 1 applic 01/25/25 20:33 01/26/25 02:27 Lanolin Oint 7 Gm TOPICAL 1 applic PRN PRN Administration DRYNESS Levofloxacin 750 mg 02/05/25 06:00 02/05/25 05:18 Levofloxacin 750 Mg Tablet PO 02/09/25 23:59 750 mg Q48H ALEXA Administration Protocol Levothyroxine Sodium 50 mcg 01/25/25 09:00 02/06/25 08:43 Levothyroxine 50 Mcg Tablet PO 50 mcg DAILY ALEXA Administration Linezolid 600 mg 02/05/25 10:30 02/06/25 11:36 Linezolid 600 Mg Tablet PO 02/10/25 10:29 600 mg Q12H ALEXA Administration Protocol Magnesium Oxide 400 mg 01/27/25 09:00 02/06/25 08:43 Magnesium Oxide 400 Mg Tablet PO 400 mg DAILY ALEXA Administration Metoprolol Tartrate 25 mg 01/25/25 09:00 02/06/25 08:43 Metoprolol Tartrate 25 Mg Tablet PO 25 mg BID ALEXA Administration Mupirocin 1 applic 02/04/25 18:00 02/06/25 08:44 Mupirocin Oint 22 Gm TOPICAL 1 applic BID ALEXA Administration Pantoprazole Sodium 40 mg 01/25/25 09:00 02/06/25 08:[address] 40 Mg Tablet PO 40 mg BID ALEXA Administration Roflumilast 500 mcg 01/25/25 09:00 02/06/25 08:47 Roflumilast 500 Mcg Tablet PO 500 mcg DAILY ALEXA Administration Senna/Docusate Sodium 1 tab 01/25/25 09:00 02/06/25 08:44 Sennosides-Docusate Tablet PO 1 tab DAILY ALEXA Administration Tramadol HCl 50 mg 02/04/25 15:31 02/06/25 09:06 Tramadol 50 Mg Tablet PO 50 mg Q6H PRN Administration MODERATE PAIN Zolpidem Tartrate 5 mg 01/30/25 13:54 02/05/25 22:56 Zolpidem 5 Mg Tablet PO 5 mg BEDTIME PRN Administration INSOMNIA PFSH Acute 2 PFSH: Medical History (Updated 02/05/25 @ 16:30 by MARBELLA Carreon) Tobacco dependence Weakness Passed out Syncope Localized swelling of both lower legs Lung nodule Skin lesions Dyslipidemia (high LDL; low HDL) Acute exacerbation of chronic obstructive pulmonary disease Lump of right breast Lung cancer right lower lobe Left shoulder pain Avulsion fracture of left talus Skin tear of right upper arm without complication Orthopnea Sinus node dysfunction Sinus pause Bradycardia Orthostatic hypotension Hypovitaminosis D Seizure-like activity Syncopal episodes Nicotine dependence, cigarettes, with unspecified nicotine-induced disorders Sacral decubitus ulcer Chronic rhinosinusitis Infected epidermoid cyst Fall Cor pulmonale Cor pulmonale Leg pain, left Nicotine addiction Chronic respiratory failure with hypoxia Aortic cusp regurgitation Actinic keratosis due to exposure to sunlight Closed intertrochanteric fracture of right hip Smoking addiction Chronic pain Thyroid cancer SOB (shortness of breath) History of COPD CVA (cerebral vascular accident) Benign essential hypertension CAD (coronary artery disease) Hx of carotid stenosis Leg pain, medial Neck strain COPD (chronic obstructive pulmonary disease) Plantar porokeratosis, acquired Surgical History Status post cardiac pacemaker procedure History of bronchoscopy History of hip surgery Hx of hysterectomy History of bilateral carpal tunnel release History of lumpectomy History of rectal surgery History of ankle surgery Status post open reduction and internal fixation (ORIF) of fracture H/O thyroidectomy S/P hardware removal Spine History of back surgery Port-A-Cath in place Family History Brother Leukemia Diabetes Lung disease Mother Anesthesia complication CAD (coronary artery disease) Father Bleeding disorder Clotting disorder CAD (coronary artery disease) Cancer Stroke Sister CAD (coronary artery disease) Chronic kidney disease (CKD) Lung disease Family/Other Diabetes Stroke Grandfather Suicide Denies family history of Dementia Social History Smoking and tobacco/nicotine status: never used tobacco/nicotine Quit status (tobacco/nicotine): considering quitting Second hand smoke exposure: Yes Alcohol intake: never Substance/Drug Use: current Other substance/drug use details: Couple of months ago Gummies Adopted: No Lives independently: Yes Household members: none Housing: Apartment Marital status: / Current occupational status: disabled Do you think of yourself as: Straight/Heterosexual Current gender identity: Female Vitals/I&O/Wt Last Vital Signs Temp 97.5 F L 02/06/25 11:58 Pulse 76 02/06/25 13:33 Resp 18 02/06/25 13:33 BP 113/42 02/06/25 11:58 Pulse Ox 98 02/06/25 13:33 O2 Del Method Nasal Cannula 02/06/25 13:33 O2 Flow Rate 3 02/06/25 13:33 FiO2 3 02/03/25 15:03 02/06/25 02/06/25 02/06/25 06:59 14:59 22:59 Intake Total 100 / 1290 650 / 650 Balance 100 / 1290 650 / 650 Weight last 48 hrs Weight 50.802 kg Weight 50.938 kg Physical Exam 2 Const: COMMON NORMALS: no acute distress and alert GENERAL APPEARANCE: c ooperative ORIENTATION/CONSCIOUSNESS: Yes awake Neck/C-Spine: GENERAL: Yes normal visual inspection Chest: CHEST: Yes Symmetrical chest wall rise Resp: COMMON NORMALS: normal respiratory effort EFFORT & INSPECTION: Yes able to speak in complete sentences OTHER: wearing nasal cannula Cardio: COMMON NORMALS: regular rate RATE: regular rate Extremity: LEFT UPPER EXTREMITY: Yes lower arm (open wounds, see wound assessment) Left lower arm: Yes inspection (edematous and erythematous), Yes palpation (pitting edema, tenderness) and Yes neurovascular exam (2+ radial pulse) Neuro: SENSORIUM/ORIENTATION: Yes alert SPEECH: speech normal Psych: COMMON NORMALS: cooperative and speech normal ATTITUDE: Yes calm ACTIVITY/MOTOR BEHAVIOR: Yes appropriate eye contact SPEECH: Yes normal speech Skin: WOUNDS: Yes wounds noted (see wound assessment) Data 02/06/25 05:27 02/06/25 05:27 A&P Assessment and plan (1) Open wound of left forearm: Ms. Lombardi is complaining of exquisite tenderness upon palpation and during dressing changes of the open ulcerations to her left forearm. Upon evaluation the arm remains edematous today and is noted to be slightly more erythematous. Ms. Lombardi has not been compliant with arm elevation. She has attempted to elevate it but states she does not have enough pillows to keep it up. She does have quite a few pillows in her room as well as a back support pillow. I have encouraged her to elevate her arm utilizing this pillow. I have talked with Dr. Velarde regarding the increased erythema and continued edema. We will continue utilizing mupirocin twice daily to the wound beds covered with nonwoven gauze and roll gauze to secure it. She is currently receiving IV antibiotics. The deep tissue injury over her sacral area does not appear to be open at this time. Continue utilizing Optifoam to this area for protection. She will benefit from a [id number] mattress and frequent position changing, at least every 2 hours. Ms. Lombardi plans to go to a group home after discharge from the hospital. We will plan to follow-up with her at the group home if she is in a facility that we round at or she will follow-up with our office on an outpatient basis. Will sign off for now. Further wound care recommendations should be guided by hospitalist service. Qualifiers: Encounter type: initial encounter Qualified Code(s): S51.802A - Unspecified open wound of left forearm, initial encounter PDMP PDMP Reviewed: Not Reviewed Consult Attestations 2 Time Spent in Patient Care: 16 - 35 minutes Coding Level of Care Code Acute Code for Chg Fwd Diagnoses Open wound of left forearm, initial encounter S51.802A Encounter type: initial encounter Wound Assessment Wound Assessment Wound Number 1 Forearm: Descriptor: Left and Proximal Primary Etiology:: Skin Tear Length: (cm): 4.5 cm Width: (cm): 1 cm Depth: (cm): 0.1 cm Epithelialization:: None Tunneling:: No Undermining:: No Limited to Skin Breakdown: Yes Exudate Amount:: Small Drainage Type: Serosanguineous Foul Odor After Cleansing:: No Slough/Fibrin?: Yes Granulation Amount: Small (1-33%) Granulation Quality:: [place] Necrotic Amount:: Medium (34-66%) Necrotic Type:: Adherent Slough Wound Number 2 Forearm: Descriptor: Left and Distal Primary Etiology:: To Be Determined Length: (cm): 5 cm Width: (cm): 6 cm Depth: (cm): 0.1 cm Epithelialization:: None Tunneling:: No Undermining:: No Exudate Amount:: Medium Drainage Type: Serosanguineous Foul Odor After Cleansing:: No Slough/Fibrin?: Yes Granulation Amount: None Necrotic Amount:: Medium (34-66%) Necrotic Type:: Adherent Slough Non Wound Condition 1: Exudate Amount:: None Present: Wound Orders All Wounds: distal and proximal left forearm Dressing change frequency: Twice Daily Wound Cleansing: Saline Primary Wound Care Dressing: mupirocin 2% Secondary Wound Care Dressing: non-woven gauze Non Wound Condition 1: deep tissue injury; sacrum Dressing change frequency: Daily Wound Cleansing: Soap and Water Secondary Wound Care Dressing: optifoam Off-Loading: Low air-loss mattress, Gel wheelchair cushion and Turn and reposition every 2 hours
[2025-02-06] MEDS: bumetanide 1 mg Tablet PO (17:25)
[2025-02-06] MEDS: zolpidem 5 mg Tablet PO (23:06)
[2025-02-07] VITALS (11 sets, daily range): BP systolic 105–122; BP diastolic 62–72; PULSE 75–96; RESP 17–20; TEMP 36.3–36.6; O2SAT 90–100; BMI 3149.4
[2025-02-07] MEDS: cefTRIAXone 2,000 mg SDV 2000 MG IVP (03:56)
[2025-02-07] MEDS: ampicillin 2,000 MG in sodium chloride 0.9% (plus) 50 ML 100 MG IV ×2 (04:00→10:45)
[2025-02-07] MEDS: levoFLOXacin 750 mg Tablet PO (06:17)
[2025-02-07] MEDS: ipratropium-albuterol 3 mL Neb INHALATION ×3 (08:28→20:43)
[2025-02-07] MEDS: roflumilast 500 mcg Tablet PO (09:16)
[2025-02-07] MEDS: apixaban 5 mg Tablet PO ×2 (09:16→20:23)
[2025-02-07] MEDS: magnesium oxide 400 mg tablet PO (09:16)
[2025-02-07] MEDS: benzonatate 100 mg Capsule 200 MG PO ×3 (09:16→20:23)
[2025-02-07] MEDS: calcitriol 0.25 mcg Capsule 0.5 MCG PO (09:16)
[2025-02-07] MEDS: buprenorphine-naloxone 4-1 mg Film 2 EACH SUBLINGUAL ×3 (09:16→20:23)
[2025-02-07] MEDS: levothyroxine 50 mcg Tablet PO (09:16)
[2025-02-07] MEDS: pantoprazole DR 40 mg Tablet PO ×2 (09:16→17:00)
[2025-02-07] MEDS: sennosides-docusate Tablet 1 TAB PO (09:16)
[2025-02-07] MEDS: bumetanide 1 mg Tablet PO ×2 (09:16→17:00)
[2025-02-07] MEDS: atorvastatin 40 mg Tablet 20 MG PO (09:17)
[2025-02-07] MEDS: metoprolol tartrate 25 mg Tablet PO ×2 (09:17→17:01)
[2025-02-07] MEDS: linezolid 600 mg Tablet PO ×2 (10:44→20:23)
[2025-02-07] MEDS: mupirocin oint 22 gm 1 APPLIC TOPICAL (10:44)
--- NOTE | 2025-02-07 11:35 | USR_ITS ---
PROCEDURE INFORMATION: Exam: US Duplex Left Upper Extremity Arteries Exam date and time: 02/07/2025 12:36 PM Age: 74 years old Clinical indication: Pain; Arm, upper; Left; Additional info: Concern for compartment syndrome, vascular compromised. TECHNIQUE: Imaging protocol: Left Real-time ultrasound scan of the arteries of the left upper extremity with 2-D childers scale, color Doppler flow and spectral waveform analysis. COMPARISON: CT angio chest PE protcl [id number] 03/28/2021 5:08 AM FINDINGS: Left subclavian artery: No occlusion or significant stenosis. Normal waveform. Left axillary artery: No occlusion or significant stenosis. Normal waveform. Left brachial artery: The proximal and distal brachial artery can not be assessed as the patient could not tolerate probe pressure. No occlusion or significant stenosis in the visualized mid brachial artery. Normal waveform. Left radial artery: No occlusion or significant stenosis. Normal waveform. Left ulnar artery: No occlusion or significant stenosis. Normal waveform. Soft tissues: Unremarkable. US/[place] [id number] IMPRESSION: Unremarkable study. Incomplete assessment of the left brachial artery as described.
--- NOTE | 2025-02-07 11:39 | USCV_ITS ---
Sakina Lombardi Age: 74 Gender: F : 1950 Exam Date: 02/07/2025 12:25 Ordering Phys: Jessa Velarde MD Technologist: Exam Location: [facility] [place] Indication: lt arm pain and swelling PROCEDURES: Venous duplex imaging was performed in only the left upper extremity. The following venous structures were evaluated: internal jugular vein, subclavian vein, axillary vein, and brachial veins. In addition, the basilic vein, cephalic vein, radial vein, and ulnar vein. FINDINGS: No evidence of deep vein thrombosis or superficial thrombophlebitis in the left upper extremity. CONCLUSIONS No evidence of thrombus of the left upper extremity veins. Leonel Wall MD (Electronically Signed) Final Date: 07 February 2025 16:26 S
[2025-02-07 11:47] LABS: SARS Covid-2 Antigen Negative (Negative)
--- NOTE | 2025-02-07 12:38 | PM.CONSULT ---
Providers/Reason For Consult Consulting Physician/Specialty*: Hospitalist Reason for Consult*: Rule out compartment syndrome of the left forearm Attending Physician: Jessa Velarde Primary Care Provider: Roger Reynoso DO History of Present Illness History of Present Illness Sakina Lombardi is a 74 year old female with infection in her arm which wound care is debriding. I was consulted to rule out compartment syndrome. Patient has multiple comorbidities currently ultrasound is and there evaluating her vessels they will have good flow. Medications/Allergies Home Medications ?Medication ?Instructions ?Recorded ?Confirmed ?Last Taken ?Type nitroglycerin 0.4 mg sublingual 0.4 mg sublingual Q5M PRN Chest 07/27/23 01/25/25 11/12/23 History tablet (Nitrostat) Pain magnesium oxide 400 mg PO DAILY 11/12/23 01/25/25 01/24/25 History albuterol sulfate 90 mcg/actuation 2 puff inhalation Q4H PRN 12/16/23 01/25/25 Unknown Rx aerosol inhaler shortness of breath or wheezing #6.7 grams buprenorphine 8 mg-naloxone 2 mg 1 film buccal TID 04/24/24 01/25/25 01/24/25 History sublingual film (Suboxone) nicotine See Rx Instructions transdermal 08/08/24 01/25/25 Unknown Rx 21mg/24hr-14mg/24hr-7mg/24hr daily .COMPLEX #56 patches transderm patches,sequentl loratadine 10 mg tablet 10 mg PO DAILY #30 tabs 08/17/24 01/25/25 01/24/25 Rx roflumilast 500 mcg tablet 500 mcg PO DAILY #30 tabs 10/03/24 01/25/25 Unknown Rx fluticasone propionate 50 2 spray intranasal DAILY sinus 11/02/24 01/25/25 Unknown Rx mcg/actuation nasal congestion #16 grams spray,suspension cilostazol 50 mg tablet 50 mg PO BID #90 tabs 11/07/24 01/25/25 Unknown Rx levothyroxine 50 mcg tablet 50 mcg PO DAILY thyroid #90 tabs 11/16/24 01/25/25 01/24/25 Rx pantoprazole 40 mg tablet,delayed 40 mg PO BID #90 tabs 11/28/24 01/25/25 01/24/25 Rx release metoprolol tartrate 25 mg tablet 25 mg PO BID #180 tabs 12/27/24 01/25/25 01/24/25 Rx atorvastatin 20 mg tablet 20 mg PO DAILY 01/25/25 01/25/25 01/24/25 History baclofen 10 mg tablet 10 mg PO Q8H PRN muscle spasms 01/25/25 01/25/25 Unknown History bumetanide 1 mg tablet 1 mg PO BID PRN Edema 01/25/25 01/25/25 01/24/25 History calcitriol 0.5 mcg capsule 0.5 mcg PO DAILY 01/25/25 01/25/25 01/24/25 History ferrous sulfate 325 mg (65 mg 325 mg PO DAILY microcytic anemia 01/29/25 Unknown Rx iron) tablet,delayed release #30 tabs apixaban 5 mg tablet (Eliquis) 5 mg PO BID@0900,2100 #60 tabs 02/05/25 Unknown Rx linezolid 600 mg tablet 600 mg PO Q12H 5 days #10 tabs 02/05/25 Unknown Rx Allergies Allergy/AdvReac Type Severity Reaction Status Date / Time amiodarone Allergy Severe ADR-Confusi Verified 01/24/25 19:21 on 2-octyl cyanoacrylate Allergy ALGY-Rash Verified 01/24/25 19:21 adhesive tape Allergy ALGY-Rash Verified 01/24/25 19:21 amitriptyline Allergy ALGY-Hives Verified 01/24/25 19:21 gabapentin Allergy ALGY-Hives Verified 01/24/25 19:21 ibuprofen Allergy ALGY-Hives Verified 01/24/25 19:21 metronidazole (From Flagyl) Allergy ALGY-Hives Verified 01/24/25 19:21 Sulfa (Sulfonamide Allergy ALGY-Hives Verified 01/24/25 19:21 Antibiotics) sulfamethoxazole (From Allergy ALGY-Difficulty Verified 01/24/25 19:21 Bactrim) Breathing tetracycline Allergy ALGY-Hives Verified 01/24/25 19:21 trimethoprim Allergy ALGY-Hives Verified 01/24/25 19:21 Current Medications Generic Name Dose Route Start Last Admin Trade Name Freq PRN Reason Stop Dose Admin Albuterol/Ipratropium 3 ml 01/25/25 08:00 02/07/25 08:28 Ipratropium-Albuterol 3 Ml Neb INHALATION 3 ml Q6H.RESP ALEXA Administration Apixaban 5 mg 02/02/25 21:00 02/07/25 09:16 Apixaban 5 Mg Tablet PO 5 mg BID@0900,2100 ALEXA Administration Atorvastatin Calcium 20 mg 01/30/25 09:00 02/07/25 09:17 Atorvastatin 40 Mg Tablet PO 20 mg DAILY ALEXA Administration Benzocaine 1 each 01/31/25 17:08 01/31/25 17:33 Cetylpyridinium Lozenge MUCOUS MEM 1 each Q2H PRN Administration SORE THROAT Benzonatate 200 mg 02/01/25 15:00 02/07/25 09:16 Benzonatate 100 Mg Capsule PO 200 mg TID ALEXA Administration Bumetanide 1 mg 02/03/25 16:30 02/05/25 17:02 Bumetanide 0.25 Mg/Ml Sdv 4 Ml IVP 1 mg 0800,1600 ALEXA Administration Bumetanide 1 mg 02/06/25 18:00 02/07/25 09:16 Bumetanide 1 Mg Tablet PO 1 mg BID ALEXA Administration Buprenorphine/Naloxone 2 each 01/24/25 21:00 02/07/25 09:16 Buprenorphine-Naloxone 4-1 Mg Film SUBLINGUAL 2 each TID ALEXA Administration Calcitriol 0.5 mcg 01/25/25 09:00 02/07/25 09:16 Calcitriol 0.25 Mcg Capsule PO 0.5 mcg DAILY ALEXA Administration Ceftriaxone Sodium 2,000 mg 01/31/25 14:15 02/07/25 03:56 Ceftriaxone 2,000 Mg Sdv IVP 2,000 mg Q12H ALEXA Administration Protocol Cilostazol 50 mg 01/29/25 18:00 01/31/25 17:33 Cilostazol 100 Mg Tablet PO 50 mg BID ALEXA Administration Lidocaine HCl 15 ml/ 0 ml 01/31/25 17:08 01/31/25 17:32 Diphenhydramine HCl 37.5 mg/ MUCOUS MEM 45 ml Al Hydrox/Mg Hydrox/ Q4H PRN Administration Simethicone 15 ml MOUTH PAIN Guaifenesin 1,200 mg 01/25/25 11:22 01/27/25 09:24 Guaifenesin 600 Mg Tablet PO 1,200 mg BID PRN Administration congestion Ampicillin Sodium 2,000 mg/ 50 mls @ 100 mls/hr 02/01/25 20:30 02/07/25 11:33 Sodium Chloride IV Infused Q6H ALEXA Infusion Protocol Lanolin 1 applic 01/25/25 20:33 01/26/25 02:27 Lanolin Oint 7 Gm TOPICAL 1 applic PRN PRN Administration DRYNESS Levofloxacin 750 mg 02/05/25 06:00 02/07/25 06:17 Levofloxacin 750 Mg Tablet PO 02/09/25 23:59 750 mg Q48H ALEXA Administration Protocol Levothyroxine Sodium 50 mcg 01/25/25 09:00 02/07/25 09:16 Levothyroxine 50 Mcg Tablet PO 50 mcg DAILY ALEXA Administration Linezolid 600 mg 02/05/25 10:30 02/07/25 10:44 Linezolid 600 Mg Tablet PO 02/10/25 10:29 600 mg Q12H ALEXA Administration Protocol Magnesium Oxide 400 mg 01/27/25 09:00 02/07/25 09:16 Magnesium Oxide 400 Mg Tablet PO 400 mg DAILY ALEXA Administration Metoprolol Tartrate 25 mg 01/25/25 09:00 02/07/25 09:17 Metoprolol Tartrate 25 Mg Tablet PO 25 mg BID ALEXA Administration Mupirocin 1 applic 02/04/25 18:00 02/07/25 10:44 Mupirocin Oint 22 Gm TOPICAL 1 applic BID ALEXA Administration Pantoprazole Sodium 40 mg 01/25/25 09:00 02/07/25 09:[address] 40 Mg Tablet PO 40 mg BID ALEXA Administration Roflumilast 500 mcg 01/25/25 09:00 02/07/25 09:16 Roflumilast 500 Mcg Tablet PO 500 mcg DAILY ALEXA Administration Senna/Docusate Sodium 1 tab 01/25/25 09:00 02/07/25 09:16 Sennosides-Docusate Tablet PO 1 tab DAILY ALEXA Administration Tramadol HCl 50 mg 02/04/25 15:31 02/06/25 20:36 Tramadol 50 Mg Tablet PO 50 mg Q6H PRN Administration MODERATE PAIN Zolpidem Tartrate 5 mg 01/30/25 13:54 02/06/25 23:06 Zolpidem 5 Mg Tablet PO 5 mg BEDTIME PRN Administration INSOMNIA PFSH Acute PFSH: Medical History (Updated 02/05/25 @ 16:30 by MARBELLA Carreon) Tobacco dependence Weakness Passed out Syncope Localized swelling of both lower legs Lung nodule Skin lesions Dyslipidemia (high LDL; low HDL) Acute exacerbation of chronic obstructive pulmonary disease Lump of right breast Lung cancer right lower lobe Left shoulder pain Avulsion fracture of left talus Skin tear of right upper arm without complication Orthopnea Sinus node dysfunction Sinus pause Bradycardia Orthostatic hypotension Hypovitaminosis D Seizure-like activity Syncopal episodes Nicotine dependence, cigarettes, with unspecified nicotine-induced disorders Sacral decubitus ulcer Chronic rhinosinusitis Infected epidermoid cyst Fall Cor pulmonale Cor pulmonale Leg pain, left Nicotine addiction Chronic respiratory failure with hypoxia Aortic cusp regurgitation Actinic keratosis due to exposure to sunlight Closed intertrochanteric fracture of right hip Smoking addiction Chronic pain Thyroid cancer SOB (shortness of breath) History of COPD CVA (cerebral vascular accident) Benign essential hypertension CAD (coronary artery disease) Hx of carotid stenosis Leg pain, medial Neck strain COPD (chronic obstructive pulmonary disease) Plantar porokeratosis, acquired Surgical History Status post cardiac pacemaker procedure History of bronchoscopy History of hip surgery Hx of hysterectomy History of bilateral carpal tunnel release History of lumpectomy History of rectal surgery History of ankle surgery Status post open reduction and internal fixation (ORIF) of fracture H/O thyroidectomy S/P hardware removal Spine History of back surgery Port-A-Cath in place Family History Brother Leukemia Diabetes Lung disease Mother Anesthesia complication CAD (coronary artery disease) Father Bleeding disorder Clotting disorder CAD (coronary artery disease) Cancer Stroke Sister CAD (coronary artery disease) Chronic kidney disease (CKD) Lung disease Family/Other Diabetes Stroke Grandfather Suicide Denies family history of Dementia Social History Smoking and tobacco/nicotine status: never used tobacco/nicotine Quit status (tobacco/nicotine): considering quitting Second hand smoke exposure: Yes Alcohol intake: never Substance/Drug Use: current Other substance/drug use details: Couple of months ago Gummies Adopted: No Lives independently: Yes Household members: none Housing: Apartment Marital status: / Current occupational status: disabled Do you think of yourself as: Straight/Heterosexual Current gender identity: Female Vitals/I&O/Wt Last Vital Signs Temp 97.3 F L 02/07/25 12:00 Pulse 82 02/07/25 12:00 Resp 20 H 02/07/25 12:00 BP 122/65 02/07/25 12:00 Pulse Ox 100 02/07/25 12:00 O2 Del Method Nasal Cannula 02/07/25 12:00 O2 Flow Rate 3 02/07/25 08:28 FiO2 3 02/03/25 15:03 02/06/25 02/07/25 02/07/25 22:59 06:59 14:59 Intake Total 590 / 1240 100 / 1340 650 / 650 Balance 590 / 1240 100 / 1340 650 / 650 Weight last 48 hrs Weight 112 lb Weight 112 lb Physical Exam Narrative: Alert and oriented x 3 Head is normocephalic atraumatic Respirations are intact Patient has a large wound on her arm. The dressing was taken down her arm is somewhat red swollen. Hand is swollen as well. At this point she has minimal pain with passive motion of her fingers. She is able to move her fingers can make a full fist because of the swelling in her hand. Sensation is intact in her hand she does feel like she does have some numbness. On palpation there does not feel to be a lot of pressure in the forearm or compartments. At this point I do not feel like she has a compartment syndrome. Urinary Catheter Management: Mayer Latex: Cath Placed During This Visit: yes, but has since been removed by the nurse Reason for Continuing Indwelling Catheter: Other Urinary Catheter Date of Insertion: 01/28/25 Urinary Catheter Time of Insertion: 11:46 Date Urinary Catheter Removed: 02/01/25 Time Urinary Catheter Discontinued: 13:45 Data 02/06/25 05:27 02/06/25 05:27 Micro: Microbiology 02/01/25 15:38 Blood Culture - Final Blood NO GROWTH AFTER 5 DAYS 02/01/25 15:38 Blood Culture - Final Blood NO GROWTH AFTER 5 DAYS A&P Assessment and plan (1) Left upper extremity swelling: At this point do not feel that she has compartment syndrome. PDMP PDMP Reviewed: Not Reviewed Coding Level of Care Code Acute Code for [facility] Fwd Diagnoses Left upper extremity swelling M79.89
--- NOTE | 2025-02-07 12:49 | P.PN_ITS ---
Subjective 2 Subjective: infectious disease progress note continues to have rash over left foream which is painful Medications: Reviewed: Yes Vitals/I&O/Wt Last Vital Signs Temp 97.3 F L 02/07/25 12:00 Pulse 82 02/07/25 12:00 Resp 20 H 02/07/25 12:00 BP 122/65 02/07/25 12:00 Pulse Ox 100 02/07/25 12:00 O2 Del Method Nasal Cannula 02/07/25 12:00 O2 Flow Rate 3 02/07/25 08:28 FiO2 3 02/03/25 15:03 02/06/25 02/07/25 02/07/25 22:59 06:59 14:59 Intake Total 590 / 1240 100 / 1340 650 / 650 Balance 590 / 1240 100 / 1340 650 / 650 Weight last 48 hrs Weight 50.802 kg Weight 50.802 kg Physical Exam 2 Narrative: General: No acute distress, AO x3 chronically ill-appearing HEENT: PERRLA, pupils bilaterally equal and reactive, pallors not present Chest: Normal vesicular breath sounds, no added sounds, equal good air entry bilaterally CVS: S1-S2 regular, no murmurs, no tachycardia, no gallops, no rubs Abdomen: Soft, nontender, no organomegaly, bowel sounds present Neuro: No focal deficits, no facial deformity, AO x3, power 5/5 in all limbs Urinary Catheter Management: Mayer Latex: Cath Placed During This Visit: yes, but has since been removed by the nurse Reason for Continuing Indwelling Catheter: Other Urinary Catheter Date of Insertion: 01/28/25 Urinary Catheter Time of Insertion: 11:46 Date Urinary Catheter Removed: 02/01/25 Time Urinary Catheter Discontinued: 13:45 Data 02/08/25 04:48 02/08/25 04:48 Micro: Microbiology 02/01/25 15:38 Blood Culture - Final Blood NO GROWTH AFTER 5 DAYS 02/01/25 15:38 Blood Culture - Final Blood NO GROWTH AFTER 5 DAYS A&P Assessment and plan (1) Infection due to Port-A-Cath: (2) Endocarditis: (3) Enterococcus faecalis infection: Plan 74-year-old lady with multiple comorbidities as listed above, chronic Port-A-Cath due to poor IV access, 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 Urine culture additionally positive for Enterococcus faecalis. However given persistent positivity of blood cultures, echogenic structure as seen on echocardiogram, presence of Port-A-Cath, favor endovascular infection to be the most likely cause of persisting bacteremia. Infection with atypical organism, together with echogenic structure on echocardiogram concerning for infective endocarditis. Difficult to ascertain if Port-A-Cath infection may have led to endocarditis however again elevated at this time would recommend removal of Port-A-Cath and at least 6 weeks of IV antibiotics. Additionally recommend to obtain ASPEN to further characterize the echogenic structure seen on TTE. Patient has been on treatment with IV vancomycin since admission on January 24, 2025. Vancomycin trough appropriate at 19. Her chart notes a history of multiple drug allergies to amoxicillin, cefaclor, ciprofloxacin, metronidazole, penicillins, sulfa antibiotics, tetracyclines. When asked in detail about each of these allergies, patient states she does not recall which antibiotic she may be allergic to. She states that when she was a child she developed a rash to penicillin. However thinks she may have tolerated on Augmentin in the past without any issues. Review of her chart here from past admissions showed that she has received ceftriaxone and cefepime on multiple occasions in the past without any overt issues. I discussed with with her that for Enterococcus faecalis endocarditis, treatment of choice would be dual beta-lactam therapy with ampicillin and ceftriaxone. I suspect she will not truly be allergic to ceftriaxone as she has previously tolerated IV cephalosporins in the past. She does not recall if she is truly allergic to amoxicillin and other drug classes. She states that she has reacted to multiple antibiotics without knowing their exact drug class. She is willing to try ampicillin while in the hospital with close monitoring for development of any anaphylactic reactions while she gets this drug. She understands the high risk should she be truly having an IgE mediated allergic process however wishes to proceed with a trial at this time. Discussed with her about ampicillin infusion at home would need to be done either via a continuous infusion pump which would be ideal. If an infusion pump is not approved by her insurance, she would need to infuse the antibiotic every 4-6 hours at home. She states she would be unable to infuse antibiotic with this frequency as she does not have a lot of help around her house. She is unwilling to go to a [place] [facility] facility to complete her IV antibiotic course. We will first try to ascertain if she will be able to get a continuous infusion pump for home use. If this is approved, we will proceed with a trial of ampicillin here in the hospital. Will administer ampicillin first and then add ceftriaxone 24 to 48 hours later. Would prefer dual beta-lactam therapy over ampicillin plus gentamicin as we do not have reliable way of monitoring gentamicin levels as outpatient, patient has reduced creatinine clearance at 47 currently, I am afraid with her multiple other comorbidities she is at a higher risk of renal toxicity with use of gentamicin. Plan: Continue IV vancomycin for now Switch to AMP + ceftriaxone once availability of continuous infusion pump is confirmed Trial of ampicillin with close clinical monitoring for any anaphylaxis. Patient understands the high risk of proceeding with this trial recommend to get ASPEN recommend port removal total 6 weeks abx duration NO PICC LINE UNTIL cx clear for at least 48 hrs blood cx persistent + for E.fecalis on 01/23, 01/24,01/25 and 01/26 thus far cx from 01/27 is negative to date, however last updated on 01/28. will follow will follow January 30, 2025 Continuous infusion pump availability has been confirmed for home use. Will proceed with trial of ampicillin was close clinical monitoring today. Ampicillin 2 g IV every 6 hours has been ordered based on creatinine clearance of 47. At the time of discharge will transition to ampicillin 8 g IV daily via continuous infusion if demonstrates tolerance to ampicillin in the hospital. Additionally will add ceftriaxone 2 g every 12 hours over the next 24 to 48 hours. Would not add both antibiotics at the same time as we are uncertain as to her allergies. Continue vancomycin in the interim until ceftriaxone can be added and tolerability of ampicillin has been established. Closely monitor kidney function ASPEN and port removal planned for tomorrow. Blood culture from January 27, 2025 is thus far without any growth. January 31, 2025 Patient tolerated ampicillin which was introduced yesterday. Review of MAR shows she has had 3 doses, yesterday at 5:30 PM, then at midnight and then at 6 AM this morning. Kidney function has not consistently shown improvement. Calculated creatinine clearance is at 50. Will increase the dose of ampicillin to 2 g every 4 hours. At the time of discharge this will be transition to a continuous infusion pump for home usage. Additionally discontinue vancomycin and add ceftriaxone today. Review of chart shows patient has previously tolerated ceftriaxone and cefepime, anticipate her tolerating addition of ceftriaxone. Unfortunately her Port-A-Cath was unable to be removed and ASPEN was unable to be performed. Discussed with patient that with Port-A-Cath remaining in place, there does remain a risk of antibiotic failure. Currently the best we can hope in this situation is to treat through the port now that cultures are negative as of 01/27 and then aim for chronic suppression thereafter. Abx total duration of treatment to be for 6 weeks (01/27-03/10). Once a week port check and dressing changes. Weekly labs including CBC, creat, LFT to be faxed to ID clinic. will follow February 01, 2025 Patient's blood culture from January 27, 2025 has returned positive today. Unfortunately this is a very complex situation since we are not able to remove the port here for perform a ASPEN to further characterize. Given persistent positive cultures, if the vegetation is a significant site she may be a candidate for early surgery per guidelines however given her extremely frail status she appears to be an overall poor candidate for acute surgical intervention at this time. Patient would like to avoid any major surgery as far as possible. Patient started treatment with ampicillin on January 30, 2025 with addition of ceftriaxone on January 31, 2025. With switch to optimal therapy, will await for clearance of cultures by repeating blood cultures today. Should blood cultures fail to clear even after initiation of ampicillin plus ceftriaxone, patient may need to be transferred for vascular/CT surgery for port removal and further assessment with ASPEN. Discussed with radiology that a PET/CT would give us more information about endocarditis, however we are unable to perform the study as an inpatient. Discussed with them performing a WBC tagged study however this would be nonspecific for endocarditis, therefore deferred for now. February 02, 2025 Blood culture from January 27, 2025 positive for Enterococcus faecalis. Switch to ampicillin plus ceftriaxone on January 30, 2025, ceftriaxone added January 31, 2025. Tolerating both antibiotics well at this time. Removed from allergy list. Given persistent positive cultures, inability to remove port, vegetation seen on TTE, multiple potential remaining sites with inadequate source control likely to be the cause of persisting infection. Patient would like to avoid any further surgical intervention and would like to be treated locally as far as possible. We have switched to dual beta-lactam therapy on January 30, 2025, new blood cultures have been taken on February 01, 2025. Hopefully cultures from February 01 would be clear from bacteremia. Will plan to continue 6 weeks of IV antibiotics if cultures clear followed by chronic suppression. If cultures fail to clear, will likely need to transfer patient to higher center for port removal and ASPEN. February 04, 2025 Sputum culture had revealed Stenotrophomonas maltophilia. Discussed the case with hospitalist and recommended to start levofloxacin for the same. Patient states she has tolerated levofloxacin in the past without any issues. States she may have had problem with Cipro with throat closing but levofloxacin has been tolerated. She is allergic to Bactrim and she is certain about this allergy. Currently tolerating ampicillin and ceftriaxone without issues. She has developed 2 skin tears over her left arm which are currently inflamed in appearance. Recommended to apply mupirocin ointment and ice pack to the extremity. Currently her IV access is via her port which is functioning. Blood culture from February 01, 2025 are currently negative. Hopefully this is reflective of the bacteremia clearing with transition to dual beta-lactam therapy. Dose of ampicillin was reduced to 2 g IV every 6 hours as estimated creatinine clearance is currently at 43. At the time of discharge recommend transition to ampicillin 8 g IV via continuous infusion pump and ceftriaxone 2 g IV every 12 hours for Enterococcus faecalis endocarditis. Unable to get ASPEN and removal of port as noted above. Weekly labs including CBC, creatinine, LFT to be faxed to infectious disease clinic for review. Follow-up in ID clinic on February 19, 2025 at 2:30 PM. February 07, 2025 : Noted wound care concerns over left forearm changes. Overall appears to be most likely related to mechanical shearing , however cannot rule out possibility of fixed drug eruption with recently introduced beta lactams. D/c ampicillin and ceftriaxone. Will attenpt salvage therapy with Daptomycin 8mg/kg every 24 hrs. Above discussed with patient. Unfortunately at this point, patient has had demonstarted failure with iv vancomycin, cleared bacteremia with Ceftriaxone+ampicillin which is treatment of choice however unable to safely continue at this point.Patient counselled regarding risk of abx failure especially inthe setting of retained port and vegetation. Will f/up in ID clinic on February 19. Will likely obtain surveillance cx at the end of treatment course and consider chronic suppression if possible. PDMP PDMP Reviewed: Not Reviewed Attestations 2 Medical Necessity Statement*: per admitting Coding Level of Care Code Acute Code for [facility] Fwd Diagnoses Infection due to Port-A-Cath T80.219A Endocarditis I38 Enterococcus faecalis infection A49.8
[2025-02-07] MEDS: zolpidem 5 mg Tablet PO (20:23)
--- NOTE | 2025-02-07 20:26 | PC.NURSE ---
Dr. De Los Santos notified that patient's PRN Ambien and PRN Xanax did not get renewed, so they became d/c'd. Dr. De Los Santos ordered to continue Ambien, as patient was getting before.
--- NOTE | 2025-02-07 20:45 | PC.NURSE ---
Addendum entered by Jewels Phillips RN 02/07/25 23:35: Absorbent pads/chucks provided for patient and placed under her legs. Original Note: Patient's legs have weeping edema. Patient's gown changed due to weeping edema getting on gown. Approximately 5 minutes later, patient asked for another clean gown, stating that it got wet again. Patient educated that is is not feasible to change her gown every 5 minutes, however we could plan to change her gown every 5 hours or so. Patient verbalized understanding.
[2025-02-07] MEDS: TRAMadol 50 mg Tablet PO (22:39)
[2025-02-08] VITALS: BP 126/75; PULSE 90; RESP 17; TEMP 36.6; O2SAT 94
[2025-02-08 04:00] VITALS: BP 115/64; PULSE 68; RESP 17; TEMP 36.5; O2SAT 94
[2025-02-08 05:05] LABS: Basophils % 0.1 %; Eosinophils # 0.1 10^3/uL (0.0-0.8); Eosinophils % 1.4 %; Lymphocytes # 0.6 10^3/uL (0.8-4.8); Lymphocytes % 8.8 %; Mean Corpuscular HGB Conc 27.7 g/dL (30-55); Mean Corpuscular Hemoglobin 23.7 pg (27-33); Mean Corpuscular Volume 85.5 fl (85-98); Mean Platelet Volume 10.2 fL (7.4-10.4); Monocytes # 0.6 10^3/uL (0.2-0.9); Monocytes % 7.6 %; Neutrophils # 5.91 10^3/uL (1.8-7.7); Neutrophils % 81.4 %; Nucleated Red Blood Cells % 0 %; Platelet Count 121 10^3/cmm (157-399); Red Blood Count 3.04 10^6/uL (3.85-5.65); Red Cell Distribution Width 18.8 % (12.1-15.1); White Blood Count 7.26 10^3/uL (3.29-11.43)
[2025-02-08 05:32] LABS: Alanine Aminotransferase 26 U/L (0-33); Albumin Level 3.7 g/dL (3.5-5.2); Alkaline Phosphatase 123 U/L (35-105); Anion Gap 11.2 (5-19); Aspartate Amino Transferase 29 U/L (0-32); Blood Urea Nitrogen 26 mg/dL (8-23); Carbon Dioxide 36 mmol/L (22-29); Chloride 89 mmol/L (98-107); Creatine Phosphokinase 19 U/L (26-192); Globulin 2.5 g/dL (1.3-4.6); Glucose 101 mg/dL (65-115); Osmolality Calculated 281 mOsm/kg (285-295); Potassium 3.2 mmol/L (3.5-5.1); Sodium 133 mmol/L (136-145); Total Bilirubin 0.3 mg/dL (0.15-1.2); Total Protein 6.2 g/dL (6.6-8.7)
[2025-02-08 07:29] VITALS: BP 114/69; PULSE 79; RESP 20; TEMP 36.4; O2SAT 92
[2025-02-08 07:33] VITALS: PULSE 77; RESP 18; O2SAT 97
[2025-02-08] MEDS: pantoprazole DR 40 mg Tablet PO (09:18)
[2025-02-08] MEDS: atorvastatin 40 mg Tablet 20 MG PO (09:18)
[2025-02-08] MEDS: magnesium oxide 400 mg tablet PO (09:19)
[2025-02-08] MEDS: calcitriol 0.25 mcg Capsule 0.5 MCG PO (09:19)
[2025-02-08] MEDS: roflumilast 500 mcg Tablet PO (09:19)
[2025-02-08] MEDS: sennosides-docusate Tablet 1 TAB PO (09:19)
[2025-02-08] MEDS: benzonatate 100 mg Capsule 200 MG PO (09:19)
[2025-02-08] MEDS: bumetanide 1 mg Tablet PO (09:19)
[2025-02-08] MEDS: buprenorphine-naloxone 4-1 mg Film 2 EACH SUBLINGUAL (09:20)
[2025-02-08] MEDS: metoprolol tartrate 25 mg Tablet PO (09:20)
[2025-02-08] MEDS: levothyroxine 50 mcg Tablet PO (09:21)
[2025-02-08] MEDS: mupirocin oint 22 gm 1 APPLIC TOPICAL (09:21)
[2025-02-08] MEDS: apixaban 5 mg Tablet PO (09:24)
[2025-02-08] MEDS: linezolid 600 mg Tablet PO (09:31)
[2025-02-08 12:00] VITALS: BP 116/52; PULSE 93; RESP 20; TEMP 36.5; O2SAT 100
[2025-02-08 13:00] VITALS: BP 116/52; PULSE 93; RESP 20; TEMP 36.5; O2SAT 100
--- NOTE | 2025-02-08 13:03 | PC.NURSE ---
I received a call from Latesha Hector, Production Painter and she states that it appears patient's d/c meds went to multiple pharmacies. Upon review, Eliquis and Linezolid were both send to [facility] on an earlier date when the plan was for patient to originally d/c home rather than to a facility. Per Dr. Velarde, patient no longer requires Linezolid, but still needs Eliquis. I called and spoke with Clair with [facility] and provided a verbal order for Eliquis. She accepted the Rx on behalf of Dr. Velarde. Clair confirmed she already has Levofloxacin and Daptomycin.
--- NOTE | 2025-02-08 13:56 | PC.NURSE ---
Called report to Leobardo Hooper LPN at [facility]. Gave report on patients wounds and how to clean and redress and opti foam clean and dry on patients sacrum. Went over new medications as well as all antibiotics. Leobardo verbalized understanding on all report.
--- NOTE | 2025-02-08 16:51 | PC.NURSE ---
Called [facility] to update nurse Johns that the patient should not be on Linezolid and Dapto. Per verbal order from Dr. Schuster. Nurse Johns verbalized understanding.
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
== END 2025-02-08 16:07 | disposition skilled nursing facility (03) | DRG 314 ==
LOC: ER 20:14 → ER IP 21:44 → MEDSURG 01-25 02:00
PROVIDERS: Emergency Medicine; Internal Medicine; Nurse Practitioner Family; Student in an Organized Health Care Education/Training Program; Surgery; Admitting Provider Internal Medicine; Emergency Provider Emergency Medicine; PCP Family Medicine; Visit Provider Hospitalist
PROC: 02JY3ZZ Inspection of Great Vessel, Percutaneous Approach (ICD-10-PCS; 2025-01-31 12:00)
DX: T80.211A Bloodstream infection due to central venous catheter, initial encounter (principal); A41.81 Sepsis due to Enterococcus; I50.33 Acute on chronic diastolic (congestive) heart failure; J15.69 Pneumonia due to other Gram-negative bacteria; I33.0 Acute and subacute infective endocarditis; I50.32 Chronic diastolic (congestive) heart failure; I48.19 Other persistent atrial fibrillation; E87.3 Alkalosis; E46 Unspecified protein-calorie malnutrition; N17.9 Acute kidney failure, unspecified; N39.0 Urinary tract infection, site not specified; J96.11 Chronic respiratory failure with hypoxia; J44.1 Chronic obstructive pulmonary disease with (acute) exacerbation; Z95.0 Presence of cardiac pacemaker; Z95.828 Presence of other vascular implants and grafts; I73.9 Peripheral vascular disease, unspecified; R23.3 Spontaneous ecchymoses; D50.8 Other iron deficiency anemias; A49.8 Other bacterial infections of unspecified site; N18.9 Chronic kidney disease, unspecified; E87.6 Hypokalemia; E83.42 Hypomagnesemia; E88.09 Other disorders of plasma-protein metabolism, not elsewhere classified; R04.0 Epistaxis; L98.499 Non-pressure chronic ulcer of skin of other sites with unspecified severity; J44.9 Chronic obstructive pulmonary disease, unspecified; E78.5 Hyperlipidemia, unspecified; Z85.850 Personal history of malignant neoplasm of thyroid; E89.0 Postprocedural hypothyroidism; Z99.81 Dependence on supplemental oxygen; Z79.899 Other long term (current) drug therapy; Z79.01 Long term (current) use of anticoagulants; Z88.0 Allergy status to penicillin; Z87.891 Personal history of nicotine dependence; Z88.8 Allergy status to other drugs, medicaments and biological substances; Z88.2 Allergy status to sulfonamides; Z91.09 Other allergy status, other than to drugs and biological substances; Z85.118 Personal history of other malignant neoplasm of bronchus and lung; I25.10 Atherosclerotic heart disease of native coronary artery without angina pectoris; Z86.73 Personal history of transient ischemic attack (TIA), and cerebral infarction without residual deficits; Z90.710 Acquired absence of both cervix and uterus; Z79.02 Long term (current) use of antithrombotics/antiplatelets
CPT/HCPCS: 36415; 36430; 36591; 51702; 71045; 73562; 76000; 77001; 80048; 80053; 80069; 80202; 81003; 82550; 83605; 83690; 83735; 84100; 84145; 85025; 85730; 86140; 86850; 86900; 86920; 87040; 87070; 87077; 87086; 87150; 87186; 87205; 87426; 93306; 93931; 93971; 94640; 96365; 96367; 96372; 97110; 97116; 97161; 97530; 99285; J0290; J0573; J0696; J0878; J1644; J1650; J2371; J2704; J3010; J3370; J3475; J3490; J7030; J7050; J7512; J9999; P9016; P9046

== ENCOUNTER 2025-02-17 11:37 | Inpatient (IN) | payer MEDICAID, SELFPAY ==
[2025-02-17] VITALS (48 sets, daily range): BP systolic 57–128; BP diastolic 42–81; PULSE 104–152; RESP 16–139; TEMP 36.3–36.7; O2SAT 73–100; BMI 19.5
--- NOTE | 2025-02-17 11:46 | ECG_ITS ---
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 Measurements Intervals [place] Rate: 144 P: 0 [place]: 0 QRS: 95 QRSD: 77 T: 53 QT: 263 QTc: 407 Interpretive Statements ATRIAL FLUTTER/TACHYCARDIA WITH RAPID VENTRICULAR RESPONSE BORDERLINE RIGHT AXIS DEVIATION [QRS AXIS > 90] nonspecific ST changes in the inferior leads SEPTAL MYOCARDIAL INFARCTION , OF INDETERMINATE AGE [40+ ms Q WAVE IN V1/V2] Compared to ECG 04/24/2024 16:16:06 Myocardial infarct finding now present Sinus rhythm no longer present Electronically Signed On 02-17-2025 14:41:19 CDT by Chante Salmon M.D. [id number]
--- NOTE | 2025-02-17 12:06 | XRR_ITS ---
PROCEDURE INFORMATION: Exam: XR Chest Exam date and time: 02/17/2025 12:58 PM Age: 74 years old Clinical indication: Shortness of breath; Prior surgery; Surgery date: 6+ months; Surgery type: Pacemaker, port placement; Chest pain radiating to jaw; Lung CA TECHNIQUE: Imaging protocol: Radiologic exam of the chest. Views: 1 view. COMPARISON: CR (CHEST, ) 01/31/2025 5:14 PM FINDINGS: Tubes, catheters and devices: There is a single lead cardiac pacer via left subclavian approach. Findings are stable. Right subclavian Port-A-Cath is stable in position with the tip in the right atrium. Lungs: Stable mild hyperinflation of the lungs. Stable right middle lobe and right lower lobe compressive atelectasis. Pleural spaces: Stable moderate right pleural effusion. Heart/Mediastinum: Stable moderate enlargement of the cardiac silhouette. Mediastinal contours are unremarkable. Vasculature: Stable vascular calcifications in the aorta. Bones/joints: Unremarkable for age. XR/XR chest 1V portable [id number] IMPRESSION: 1. Stable moderate right pleural effusion with right middle lobe and right lower lobe compressive atelectasis. Stable mild hyperinflation of the lungs. 2. Incidental/nonacute findings are listed in the report.
[2025-02-17 12:22] LABS: Basophils % 0.4 %; Eosinophils % 0.6 %; Hematocrit 27.2 % (36-47); Lymphocytes # 0.9 10^3/uL (0.8-4.8); Lymphocytes % 12.2 %; Mean Corpuscular HGB Conc 27.2 g/dL (30-55); Mean Corpuscular Hemoglobin 24.5 pg (27-33); Mean Corpuscular Volume 90.1 fl (85-98); Mean Platelet Volume 9.5 fL (7.4-10.4); Monocytes # 0.7 10^3/uL (0.2-0.9); Monocytes % 9.5 %; Neutrophils # 5.29 10^3/uL (1.8-7.7); Neutrophils % 76.3 %; Nucleated Red Blood Cells % 0.3 %; Platelet Count 101 10^3/cmm (157-399); Red Blood Count 3.02 10^6/uL (3.85-5.65); Red Cell Distribution Width 21.3 % (12.1-15.1); White Blood Count 6.94 10^3/uL (3.29-11.43)
[2025-02-17 12:25] LABS: Troponin(5th) Baseline 90 ng/L (0-10)
[2025-02-17 12:31] LABS: Alanine Aminotransferase 12 U/L (0-33); Albumin Level 3.9 g/dL (3.5-5.2); Alkaline Phosphatase 133 U/L (35-105); Anion Gap 12.9 (5-19); Aspartate Amino Transferase 26 U/L (0-32); Blood Urea Nitrogen 30 mg/dL (8-23); Calcium 8.8 mg/dL (8.5-10.5); Carbon Dioxide 35 mmol/L (22-29); Chloride 97 mmol/L (98-107); Creatinine Clr Calc Pharmacy 34.8717; Globulin 2.9 g/dL (1.3-4.6); Glucose 124 mg/dL (65-115); Osmolality Calculated 298 mOsm/kg (285-295); Potassium 4.9 mmol/L (3.5-5.1); Sodium 140 mmol/L (136-145); Total Bilirubin 0.6 mg/dL (0.15-1.2); Total Protein 6.8 g/dL (6.6-8.7)
[2025-02-17 12:32] LABS: Lactic Sepsis W/Reflex 1.1 mmol/L (0.5-2.2)
[2025-02-17 12:33] LABS: ABG PH Result 7.32 (7.35-7.45); Alveolar-Arterial Oxygen Gradi 13.2 mmHg (5-10); Arterial Blood Gas Hematocrit 23.7 % (37-47); Base Excess ABG 9.2 mmol/L (-2.0-2.0); Blood Gas Allen Test Pos; Blood Gas Operator Identificat CAK; Blood Gas Sample Site Radial, right; Blood Gas Sample Type Arterial; HCO3 ABG 36.6 mmol/L (22-26); HGB O2 Sat 71.6 % (95-100); Ionized Calcium Level - ABG 1.2 mmol/L (1.1-1.4); Oxygen Device NC; Oxygen Saturation ABG 73.8; PO2 ABG 42.7 mmHg (80.0-100.0); PO2 FiO2 Ratio Arterial Blood 133; Potassium Level - ABG 4.8 mmol/L (3.5-5.0); Total Hemoglobin 7.7 g/dL (12-16)
[2025-02-17 12:34] LABS: ABG PCO2 71.1 mmHg (35-45)
[2025-02-17] MEDS: sodium chloride 0.9% 1,360.77 ML 1360.77 ML IV (12:45)
[2025-02-17] MEDS: VANCOMYCIN ADD-Vantage 1,000 MG in 0.9% NaCl ADD-Vantage 250 ML 250 MG IV (12:45)
[2025-02-17] MEDS: LORazepam 2 mg/mL INJ 1 mL 0.25 MG IVP (12:59)
--- NOTE | 2025-02-17 13:04 | W.ED.CHESTPA ---
HPI - Chest Pain General: Chief Complaint: Chest Pain Stated Complaint: chest pain Time Seen by Provider: 02/17/25 11:45 Source: patient Mode of arrival: ambulatory Limitations: no limitations History of Present Illness: 72-year-old female with a history of cancer along with multiple medical issues she is no longer on chemo or radiation she has severe COPD as well she has been admitted multiple times in the past. States today she had been having increasing shortness of breath along with chest pain denies any fever vomiting or diarrhea. Is in A-fib here. Associated symptoms: Reports dyspnea; Deny abdominal pain, fever(s), nausea or vomiting Related Data Home Medications ?Medication ?Instructions ?Recorded ?Confirmed nitroglycerin 0.4 mg sublingual 0.4 mg sublingual Q5M PRN Chest 07/27/23 02/17/25 tablet (Nitrostat) Pain magnesium oxide 400 mg PO DAILY 11/12/23 02/17/25 buprenorphine 8 mg-naloxone 2 mg 1 film buccal TID 04/24/24 02/17/25 sublingual film (Suboxone) atorvastatin 20 mg tablet 20 mg PO DAILY 01/25/25 02/17/25 baclofen 10 mg tablet 10 mg PO Q8H PRN muscle spasms 01/25/25 02/17/25 bumetanide 1 mg tablet 1 mg PO BID PRN Edema 01/25/25 02/17/25 calcitriol 0.5 mcg capsule 0.5 mcg PO DAILY 01/25/25 02/17/25 Previous Rx's ?Medication ?Instructions ?Recorded albuterol sulfate 90 mcg/actuation 2 puff inhalation Q4H PRN 12/16/23 aerosol inhaler shortness of breath or wheezing #6.7 grams nicotine See Rx Instructions transdermal 08/08/24 21mg/24hr-14mg/24hr-7mg/24hr daily .COMPLEX #56 patches transderm patches,sequentl loratadine 10 mg tablet 10 mg PO DAILY #30 tabs 08/17/24 roflumilast 500 mcg tablet 500 mcg PO DAILY #30 tabs 10/03/24 fluticasone propionate 50 2 spray intranasal DAILY sinus 11/02/24 mcg/actuation nasal congestion #16 grams spray,suspension cilostazol 50 mg tablet 50 mg PO BID #90 tabs 11/07/24 levothyroxine 50 mcg tablet 50 mcg PO DAILY thyroid #90 tabs 11/16/24 pantoprazole 40 mg tablet,delayed 40 mg PO BID #90 tabs 11/28/24 release metoprolol tartrate 25 mg tablet 25 mg PO BID #180 tabs 12/27/24 ferrous sulfate 325 mg (65 mg 325 mg PO DAILY microcytic anemia 01/29/25 iron) tablet,delayed release #30 tabs apixaban 5 mg tablet (Eliquis) 5 mg PO BID@0900,2100 #60 tabs 02/05/25 Allergies Allergy/AdvReac Type Severity Reaction Status Date / Time amiodarone Allergy Severe ADR-Confusi Verified 01/24/25 19:21 on 2-octyl cyanoacrylate Allergy ALGY-Rash Verified 01/24/25 19:21 adhesive tape Allergy ALGY-Rash Verified 01/24/25 19:21 amitriptyline Allergy ALGY-Hives Verified 01/24/25 19:21 gabapentin Allergy ALGY-Hives Verified 01/24/25 19:21 ibuprofen Allergy ALGY-Hives Verified 01/24/25 19:21 metronidazole (From Flagyl) Allergy ALGY-Hives Verified 01/24/25 19:21 Sulfa (Sulfonamide Allergy ALGY-Hives Verified 01/24/25 19:21 Antibiotics) sulfamethoxazole (From Allergy ALGY-Difficulty Verified 01/24/25 19:21 Bactrim) Breathing tetracycline Allergy ALGY-Hives Verified 01/24/25 19:21 trimethoprim Allergy ALGY-Hives Verified 01/24/25 19:21 Review of Systems Const: Denies: fever(s), chills, body aches or change in appetite ENMT: Denies: throat pain or dental pain Card: Reports: chest pain Resp: Reports: dyspnea GI: Denies: abdominal pain, nausea, vomiting or diarrhea : Denies: dysuria Musc: Denies: neck pain or back pain Skin/Breast: Denies: rash Neuro: Denies: headache(s) PFSH ED PFSH: Medical History Tobacco dependence Weakness Passed out Syncope Localized swelling of both lower legs Lung nodule Skin lesions Dyslipidemia (high LDL; low HDL) Acute exacerbation of chronic obstructive pulmonary disease Lump of right breast Lung cancer right lower lobe Left shoulder pain Avulsion fracture of left talus Skin tear of right upper arm without complication Orthopnea Sinus node dysfunction Sinus pause Bradycardia Orthostatic hypotension Hypovitaminosis D Seizure-like activity Syncopal episodes Nicotine dependence, cigarettes, with unspecified nicotine-induced disorders Sacral decubitus ulcer Chronic rhinosinusitis Infected epidermoid cyst Fall Cor pulmonale Cor pulmonale Leg pain, left Nicotine addiction Chronic respiratory failure with hypoxia Aortic cusp regurgitation Actinic keratosis due to exposure to sunlight Closed intertrochanteric fracture of right hip Smoking addiction Chronic pain Thyroid cancer SOB (shortness of breath) History of COPD CVA (cerebral vascular accident) Benign essential hypertension CAD (coronary artery disease) Hx of carotid stenosis Leg pain, medial Neck strain COPD (chronic obstructive pulmonary disease) Plantar porokeratosis, acquired Surgical History Status post cardiac pacemaker procedure History of bronchoscopy History of hip surgery Hx of hysterectomy History of bilateral carpal tunnel release History of lumpectomy History of rectal surgery History of ankle surgery Status post open reduction and internal fixation (ORIF) of fracture H/O thyroidectomy S/P hardware removal Spine History of back surgery Port-A-Cath in place Family History Brother Leukemia Diabetes Lung disease Mother Anesthesia complication CAD (coronary artery disease) Father Bleeding disorder Clotting disorder CAD (coronary artery disease) Cancer Stroke Sister CAD (coronary artery disease) Chronic kidney disease (CKD) Lung disease Family/Other Diabetes Stroke Grandfather Suicide Denies family history of Dementia Social History Smoking and tobacco/nicotine status: never used tobacco/nicotine Quit status (tobacco/nicotine): considering quitting Second hand smoke exposure: Yes Alcohol intake: never Substance/Drug Use: current Other substance/drug use details: Couple of months ago Gummies Adopted: No Lives independently: Yes Household members: none Housing: Apartment Marital status: / Current occupational status: disabled Do you think of yourself as: Straight/Heterosexual Current gender identity: Female Physical Exam Const: COMMON NORMALS: patient oriented x3 GENERAL APPEARANCE: disheveled and ill appearing HENMT: COMMON NORMALS: normocephalic and atraumatic HEAD & SCALP: normocephalic and atraumatic Eye: COMMON NORMALS: conjunctivae normal CONJUNCTIVA: Yes conjunctivae normal Neck/C-Spine: COMMON NORMALS: full ROM and supple Chest: COMMONS NORMALS: normal inspection of the chest Resp: EFFORT & INSPECTION: Yes tachypneic and Yes respiratory distress AUSCULTATION: wheezes Cardio: COMMON NORMALS: No murmurs present (Cardio) RATE: tachycardic RHYTHM: abnormal rhythm irregularly irregular GI: COMMON NORMALS: Normal to inspection, nondistended, normoactive bowel sounds present, Soft to palpation, non-tender and no masses PALPATION: Yes Soft to palpation Extremity: COMMON NORMALS: normal to inspection and full ROM Neuro: COMMON NORMALS: patient oriented x3, moves all extremities and no focal motor deficits Psych: COMMON NORMALS: mental status grossly normal, Normal thought process present and cooperative THOUGHT PROCESS: Normal thought process present Skin: COMMON NORMALS: no rashes or lesions noted and no wounds GENERAL SKIN EXAM: no rashes or lesions noted Course Vital Signs: Vital signs: Vital Signs Temperature 97.6 F 02/17/25 11:38 Pulse Rate 130 H 02/17/25 13:45 Respiratory Rate 16 02/17/25 13:44 Blood Pressure 123/60 02/17/25 13:44 Pulse Oximetry 92 02/17/25 11:38 Oxygen Delivery Me thod Nasal Cannula 02/17/25 11:38 Oxygen Flow Rate 3 02/17/25 11:38 Fraction of Inspir ed Oxygen 50 02/17/25 13:45 MDM - Chest Pain Medical Decision Making Patient presents here with shortness of breath chest pain she is in A-fib with RVR as well as she is hypercapnic did place her on BiPAP I have discussed hospice with her and patient states she is considering it but still wants to be admitted at this time discussed talk for the hospitalist did give her dose of Cardizem her heart rate has improved and urine antibiotics will admit to ICU Medical Records I reviewed the patient's medical records. Lab Data I reviewed the patient's lab results. 02/17/25 11:31 02/17/25 11:31 Laboratory Results WBC 6.94 10^3/uL (3.29-11.43) 02/17/25 11:31 RBC 3.02 10^6/uL (3.85-5.65) L 02/17/25 11:31 Hgb 7.40 g/dL (11.27-16.99) L 02/17/25 11:31 Hct 27.2 % (36-47) L 02/17/25 11: MCV 90.1 fl (85-98) 02/17/25 11:31 MCH 24.5 pg (27-33) L 02/17/25 11:31 MCHC 27.2 g/dL (30-55) L 02/17/25 11:31 RDW 21.3 % (12.1-15.1) H 02/17/25 11:31 Plt Count 101 10^3/cmm (157-399) L 02/17/25 11:31 MPV 9.5 fL (7.4-10.4) 02/17/25 11: Neut % (Auto) 76.3 % 02/17/25 11: Lymph % (Auto) 12.2 % 02/17/25 11:31 [place] % (Auto) 9.5 % 02/17/25 11:31 Eos % (Auto) 0.6 % 02/17/25 11:31 Baso % (Auto) 0.4 % 02/17/25 11:31 Neut # (Auto) 5.29 10^3/uL (1.8-7.7) 02/17/25 11: Lymph # (Auto) 0.9 10^3/uL (0.8-4.8) 02/17/25 11:31 [place] # (Auto) 0.7 10^3/uL (0.2-0.9) 02/17/25 11:31 Eos # (Auto) 0.0 10^3/uL (0.0-0.8) 02/17/25 11:31 Baso # (Auto) 0.0 10^3/uL (0.0-0.1) 02/17/25 11: Nucleated RBC % (auto) 0.3 % 02/17/25 11: Nucleated RBCs # 0.0 /100WBC 02/17/25 11:31 Specimen Type Arterial 02/17/25 12:22 Sample Site Radial, right 02/17/25 12:22 ABG pH 7.32 (7.35-7.45) L 02/17/25 12:22 ABG pCO2 71.1 mmHg (35-45) H* 02/17/25 12:22 ABG pO2 42.7 mmHg (80.0-100.0) L 02/17/25 12:22 ABG PO2/FiO2 Ratio 133 02/17/25 12:22 ABG HCO3 36.6 mmol/L (22-26) H 02/17/25 12:22 ABG O2 Saturation 73.8 02/17/25 12:22 ABG Base Excess 9.2 mmol/L (-2.0-2.0) H 02/17/25 12:22 Ankush Test Pos 02/17/25 12:22 A-a O2 Gradient 13.2 mmHg (5-10) H 02/17/25 12:22 Hematocrit 23.7 % (37-47) L 02/17/25 12:22 Hgb O2 Saturation 71.6 % (95-100) L 02/17/25 12:22 Carboxyhemoglobin 2.0 %THgb (0.4-20.1) 02/17/25 12:22 Methemoglobin 1.0 % (0.4-1.5) 02/17/25 12:22 Total Hemoglobin 7.7 g/dL (12-16) L 02/17/25 12:22 Sodium 144.0 mmol/L (131-143) H 02/17/25 12:22 Potassium 4.8 mmol/L (3.5-5.0) 02/17/25 12:22 Glucose 115.0 mg/dL (70-115) 02/17/25 12:22 Ionized Calcium 1.2 mmol/L (1.1-1.4) 02/17/25 12:22 O2 Delivery Device Nc 02/17/25 12:22 O2 Liters/Min 3.0 % 02/17/25 12:22 FiO2 32.0 % 02/17/25 12:22 [employer] ID Cak 02/17/25 12:22 Sodium 140 mmol/L (136-145) 02/17/25 11:31 Potassium 4.9 mmol/L (3.5-5.1) 02/17/25 11:31 Chloride 97 mmol/L (98-107) L 02/17/25 11:31 Carbon Dioxide 35 mmol/L (22-29) H 02/17/25 11:31 Anion Gap 12.9 (5-19) 02/17/25 11:31 BUN 30 mg/dL (8-23) H 02/17/25 11:31 Creatinine 1.0 mg/dL (0.5-0.9) H 02/17/25 11:31 GFR Calculation Not Reportable 02/17/25 11:31 Glucose 124 mg/dL (65-115) H 02/17/25 11:31 Calculated Osmolality 298 mOsm/kg (285-295) H 02/17/25 11:31 Lactic Acid 1.1 mmol/L (0.5-2.2) 02/17/25 11:31 Calcium 8.8 mg/dL (8.5-10.5) 02/17/25 11:31 Total Bilirubin 0.6 mg/dL (0.15-1.2) 02/17/25 11:31 AST 26 U/L (0-32) 02/17/25 11:31 ALT 12 U/L (0-33) 02/17/25 11:31 Alkaline Phosphatase 133 U/L (35-105) H 02/17/25 11:31 Troponin T Baseline 90 ng/L (0-10) H 02/17/25 11:31 Total Protein 6.8 g/dL (6.6-8.7) 02/17/25 11:31 Albumin 3.9 g/dL (3.5-5.2) 02/17/25 11:31 Globulin 2.9 g/dL (1.3-4.6) 02/17/25 11:31 All radiology interpretation(s) finalized by discharge Critical Care Time Critical Care Time: Critical Care Time: Yes Total Critical Care Time: 45 Attestation: The high probability of a clinically significant, sudden or life threatening deterioration of the patient's resp system(s) required my full and direct attention, intervention and personal management. The critical care time is as shown. This time is in addition to time spent performing any reported procedures but includes the following: [x] Data and vital sign review and interpretation [x] Patient assessment, examination and intervention [x] Documentation [x] Medication orders and management Discharge Plan Discharge Patient Disposition: Admitted As Inpatient Clinical Impression: Acute exacerbation of chronic obstructive pulmonary disease, Lung cancer, Atrial fibrillation, Acute and chronic respiratory failure with hypercapnia Condition: Stable Prescriptions: No Action fluticasone propionate 50 mcg/actuation spray,suspension 2 spray intranasal DAILY Qty: 16 3RF levothyroxine 50 mcg tablet 50 mcg PO DAILY Qty: 90 1RF nicotine 21-14-7 mg/24 hr patch, TD daily, sequential See Rx Instructions transdermal .COMPLEX Qty: 56 0RF Rx Instructions: apply 1-21 mg NICOTINE PATCH daily for 28 days; follow with 1-14 mg PATCH daily for 14 days, then 1-7mg PATCH daily for 14 days transdermal albuterol sulfate 90 mcg/actuation HFA aerosol inhaler 2 puff inhalation Q4H PRN (Reason: shortness of breath or wheezing) Qty: 6.7 3RF loratadine 10 mg tablet 10 mg PO DAILY Qty: 30 6RF roflumilast 500 mcg tablet 500 mcg PO DAILY Qty: 30 5RF cilostazol 50 mg tablet 50 mg PO BID Qty: 90 3RF pantoprazole 40 mg tablet,delayed release (DR/EC) 40 mg PO BID Qty: 90 3RF metoprolol tartrate 25 mg tablet 25 mg PO BID Qty: 180 3RF ferrous sulfate 325 mg (65 mg iron) tablet,delayed release (DR/EC) 325 mg PO DAILY Qty: 30 1RF magnesium oxide 400 mg magnesium Capsule 400 mg PO DAILY calcitriol 0.5 mcg capsule 0.5 mcg PO DAILY atorvastatin 20 mg tablet 20 mg PO DAILY baclofen 10 mg tablet 10 mg PO Q8H PRN (Reason: muscle spasms) bumetanide 1 mg tablet 1 mg PO BID PRN (Reason: Edema) Eliquis 5 mg Tablet 5 mg PO BID@0900,2100 Qty: 60 0RF nitroglycerin [Nitrostat] 0.4 mg Tablet, Sublingual 0.4 mg SUBLINGUAL Q5M PRN (Reason: Chest Pain) Rx Instructions: do not exceed 3 doses per episode buprenorphine-naloxone [Suboxone] 8-2 mg Film 1 film BUCCAL TID Referrals: Roger Reynoso DO [Primary Care Provider] - Print Language: Bengali Coding Level of Care Code ED Submersible Pilot for Delmer Ray
[2025-02-17] MEDS: dilTIAZem 5 mg/mL SDV 5 mL 10 MG IVP (13:28)
[2025-02-17 13:53] LABS: Troponin 5 2HR 78.06 ng/L (0-10)
[2025-02-17 13:54] LABS: Troponin 5 2HR Delta -11.94 ABS# (0-10)
--- NOTE | 2025-02-17 14:02 | ECG_ITS ---
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 Measurements Intervals [place] Rate: 140 P: 0 WV: 0 QRS: 105 QRSD: 61 T: 69 QT: 279 QTc: 427 Interpretive Statements ATRIAL FLUTTER/TACHYCARDIA WITH RAPID VENTRICULAR RESPONSE RIGHT AXIS DEVIATION [QRS AXIS > 100] SEPTAL MYOCARDIAL INFARCTION , OF INDETERMINATE AGE [40+ ms Q WAVE IN V1/V2] ST ELEVATION, CONSIDER INFERIOR INJURY [MARKED ST ELEVATION W/O NORMALLY INFLECTED T-WAVE IN II/aVF] ACUTE DC Compared to ECG 02/17/2025 11:46:44 ST (T wave) deviation now present Myocardial infarct finding still present Electronically Signed On 02-17-2025 14:42:50 CDT by Chante Salmon M.D. [email or web address]
[2025-02-17] MEDS: piperacillin-tazobactam 3.375 GM in sodium chloride 0.9% (plus) 50 ML IV (14:05)
[2025-02-17 14:08] LABS: Bilirubin Urine Negative (Negative); Blood Urine Negative (Negative); Glucose Urine UA Negative (Normal); Ketones Urine Negative (Negative); Leukocyte Esterase Urine Negative (Negative); Nitrate Urine Negative (Negative); Protein Urine 1+ (Negative); Specific Gravity, Urine 1.014 (1.005-1.030); Urine Appearance Clear (CLEAR); Urine Color Yellow (Yellow); Urobilinogen Urine 0.2 mg/dL (Negative)
[2025-02-17 14:10] LABS: Add Urine Microscopic? YES; Bacteria Urine None Seen /hpf; Squamous Epithelial Cell Urine 0-5 /hpf (0-5); WBC Urine 0-5 /hpf (0-5)
[2025-02-17 14:24] LABS: UA Slide Review UA Slide Review Perf
[2025-02-17] MEDS: dexmedeTOMIDine 0.9 % NaCL 400 MCG/100 ML PREMIX IV (16:31)
[2025-02-17] MEDS: HYDROmorphone 0.5 MG/0.5 ML INJ IVP ×2 (17:12→23:25)
[2025-02-17] MEDS: loratadine 10 mg Tablet PO (17:12)
[2025-02-17] MEDS: amiodarone 150 MG/100 ML PREMIX 400 MG IV (17:12)
--- NOTE | 2025-02-17 18:02 | ECG_ITS ---
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 Measurements Intervals [place] Rate: 138 P: 107 DC: 126 QRS: 111 QRSD: 75 T: 47 QT: 306 QTc: 465 Interpretive Statements Possible atrial flutter WITH Rapid ventricular rate ARM LEADS REVERSED [INVERTED P AND QRS IN I] ABNORMAL RHYTHM ECG Compared to ECG 02/17/2025 13:02:52 Ventricular premature complex(es) now present Atrial flutter no longer present Right-axis deviation no longer present Myocardial infarct finding no longer present ST (T wave) deviation no longer present Electronically Signed On 02-18-2025 23:03:22 CDT by Chante Salmon M.D. [email or web address]
[2025-02-17] MEDS: midodrine 5 mg TABLET 10 MG PO ×2 (18:03→20:00)
[2025-02-17] MEDS: norepinephrine 4 MG/250 ML BAG 15 MG IV (18:04)
--- NOTE | 2025-02-17 18:21 | PM.HP ---
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 Patient had suffered from prolonged bacteremia in the past admission. Vancomycin treatment was unsuccessful in clearing the bacteremia. Patient had previously reported allergies to ampicillin and ceftriaxone. Trial of both antibiotics was given cautiously in the hospital and patient tolerated it well. She was switched to ampicillin and ceftriaxone following which patient cleared her blood cultures. Her port was attempted to be removed, however and in spite of multiple attempts by general surgery this was unsuccessful. She was found to have a right atrial vegetation. ASPEN was unable to be performed because of patient's past history of laryngeal cancer and considered too high risk. While on the above treatment, patient started to develop ulceration over her left forearm. It remains unclear whether the ulceration was related to mechanical shearing and skin breakdown versus possibility of extra protection from either of the newly introduced beta-lactam's. Eventually beta-lactam is needed to be discontinued and she was switched to daptomycin and discharged to skilled nursing.. She reports brought from the skilled nursing today due to acute respiratory distress. Patient was noted to have hypercapnic respiratory failure and was placed on BiPAP. Chest x-ray does not show any new findings today.she was recently treated for stenotrophomonas pneumonia on her last admission. patient is currently seen in the ICU on a BiPAP she currently feels slightly better with regards to her breathing some Has been taken off to have an extended goals of care discussion with her. Her son remains at bedside at this present time. Patient was hypotensive upon admission with blood pressure 82/49, this improved to 120/60 and is now at the time of this assessment at 92/46 mmHg. She needed to be started on a Precedex infusion to tolerate the BiPAP as she was very restless. Additionally she was noted to be in A-fib with RVR with heart rate in the 130s. Review of Systems General: Reports: 10 or more systems reviewed and unremarkable except in HPI and below Const: Denies: fever(s), chills or body aches Eyes: Denies: change in vision, blurry vision or photophobia ENMT: Reports: hoarseness; Denies: throat pain, enlarged tonsils, odynophagia or nasal congestion Card: Denies: chest pain, palpitations, irregular heart rhythm, edema, swelling of feet/ankles, lightheadedness, pre-syncope, dyspnea on exertion or orthopnea Resp: Denies: dyspnea, productive cough, non-productive cough, wheezing, stridor, pain on inspiration, change in phlegm color, hemoptysis or chest congestion GI: Denies: abdominal pain, nausea, vomiting, hematemesis, coffee ground emesis, dysphagia, heartburn, diarrhea, constipation, GI cramping, change in stool character, hematochezia or melena : Denies: flank pain, difficulty voiding, dysuria, urinary frequency, urinary urgency, urinary hesitancy or hematuria Musc: Denies: neck pain, back pain, extremity pain, joint swelling, joint warmth or deformity Neuro: Denies: headache(s), numbness in extremities, weakness in extremities, sensory changes, difficulty walking, frequent falls, dizziness, vertigo, behavioral changes, Slurred speech present or seizure-like activity Psych: Denies: anxiety, depression, suicidal ideation or homicidal ideation Endo: Denies: polyuria, polydipsia, tired all the time, cold intolerance or hot flashes Edgar/Lymph: Denies: easy bruising or easy bleeding Medications/Allergies Home Medications ?Medication ?Instructions ?Recorded ?Confirmed ?Last Taken ?Type nitroglycerin 0.4 mg sublingual 0.4 mg sublingual Q5M PRN Chest 07/27/23 02/17/25 11/12/23 History tablet (Nitrostat) Pain magnesium oxide 400 mg PO DAILY 11/12/23 02/17/25 01/24/25 History albuterol sulfate 90 mcg/actuation 2 puff inhalation Q4H PRN 12/16/23 02/17/25 Unknown Rx aerosol inhaler shortness of breath or wheezing #6.7 grams buprenorphine 8 mg-naloxone 2 mg 1 film buccal TID 04/24/24 02/17/25 01/24/25 History sublingual film (Suboxone) nicotine See Rx Instructions transdermal 08/08/24 02/17/25 Unknown Rx 21mg/24hr-14mg/24hr-7mg/24hr daily .COMPLEX #56 patches transderm patches,sequentl loratadine 10 mg tablet 10 mg PO DAILY #30 tabs 08/17/24 02/17/25 01/24/25 Rx roflumilast 500 mcg tablet 500 mcg PO DAILY #30 tabs 10/03/24 02/17/25 Unknown Rx fluticasone propionate 50 2 spray intranasal DAILY sinus 11/02/24 02/17/25 Unknown Rx mcg/actuation nasal congestion #16 grams spray,suspension cilostazol 50 mg tablet 50 mg PO BID #90 tabs 11/07/24 02/17/25 Unknown Rx levothyroxine 50 mcg tablet 50 mcg PO DAILY thyroid #90 tabs 11/16/24 02/17/25 01/24/25 Rx pantoprazole 40 mg tablet,delayed 40 mg PO BID #90 tabs 11/28/24 02/17/25 01/24/25 Rx release metoprolol tartrate 25 mg tablet 25 mg PO BID #180 tabs 12/27/24 02/17/25 01/24/25 Rx atorvastatin 20 mg tablet 20 mg PO DAILY 01/25/25 02/17/25 01/24/25 History baclofen 10 mg tablet 10 mg PO Q8H PRN muscle spasms 01/25/25 02/17/25 Unknown History bumetanide 1 mg tablet 1 mg PO BID PRN Edema 01/25/25 02/17/25 01/24/25 History calcitriol 0.5 mcg capsule 0.5 mcg PO DAILY 01/25/25 02/17/25 01/24/25 History ferrous sulfate 325 mg (65 mg 325 mg PO DAILY microcytic anemia 01/29/25 02/17/25 Unknown Rx iron) tablet,delayed release #30 tabs apixaban 5 mg tablet (Eliquis) 5 mg PO BID@0900,2100 #60 tabs 02/05/25 02/17/25 Unknown Rx Allergies Allergy/AdvReac Type Severity Reaction Status Date / Time amiodarone Allergy Severe ADR-Confusi Verified 01/24/25 19:21 on 2-octyl cyanoacrylate Allergy ALGY-Rash Verified 01/24/25 19:21 adhesive tape Allergy ALGY-Rash Verified 01/24/25 19:21 amitriptyline Allergy ALGY-Hives Verified 01/24/25 19:21 gabapentin Allergy ALGY-Hives Verified 01/24/25 19:21 ibuprofen Allergy ALGY-Hives Verified 01/24/25 19:21 metronidazole (From Flagyl) Allergy ALGY-Hives Verified 01/24/25 19:21 Sulfa (Sulfonamide Allergy ALGY-Hives Verified 01/24/25 19:21 Antibiotics) sulfamethoxazole (From Allergy ALGY-Difficulty Verified 01/24/25 19:21 Bactrim) Breathing tetracycline Allergy ALGY-Hives Verified 01/24/25 19:21 trimethoprim Allergy ALGY-Hives Verified 01/24/25 19:21 PFSH Acute PFSH: Medical History Tobacco dependence Weakness Passed out Syncope Localized swelling of both lower legs Lung nodule Skin lesions Dyslipidemia (high LDL; low HDL) Acute exacerbation of chronic obstructive pulmonary disease Lump of right breast Lung cancer right lower lobe Left shoulder pain Avulsion fracture of left talus Skin tear of right upper arm without complication Orthopnea Sinus node dysfunction Sinus pause Bradycardia Orthostatic hypotension Hypovitaminosis D Seizure-like activity Syncopal episodes Nicotine dependence, cigarettes, with unspecified nicotine-induced disorders Sacral decubitus ulcer Chronic rhinosinusitis Infected epidermoid cyst Fall Cor pulmonale Cor pulmonale Leg pain, left Nicotine addiction Chronic respiratory failure with hypoxia Aortic cusp regurgitation Actinic keratosis due to exposure to sunlight Closed intertrochanteric fracture of right hip Smoking addiction Chronic pain Thyroid cancer SOB (shortness of breath) History of COPD CVA (cerebral vascular accident) Benign essential hypertension CAD (coronary artery disease) Hx of carotid stenosis Leg pain, medial Neck strain COPD (chronic obstructive pulmonary disease) Plantar porokeratosis, acquired Surgical History Status post cardiac pacemaker procedure History of bronchoscopy History of hip surgery Hx of hysterectomy History of bilateral carpal tunnel release History of lumpectomy History of rectal surgery History of ankle surgery Status post open reduction and internal fixation (ORIF) of fracture H/O thyroidectomy S/P hardware removal Spine History of back surgery Port-A-Cath in place Family History Brother Leukemia Diabetes Lung disease Mother Anesthesia complication CAD (coronary artery disease) Father Bleeding disorder Clotting disorder CAD (coronary artery disease) Cancer Stroke Sister CAD (coronary artery disease) Chronic kidney disease (CKD) Lung disease Family/Other Diabetes Stroke Grandfather Suicide Denies family history of Dementia Social History Smoking and tobacco/nicotine status: never used tobacco/nicotine Quit status (tobacco/nicotine): considering quitting Second hand smoke exposure: Yes Alcohol intake: never Substance/Drug Use: current Other substance/drug use details: Couple of months ago Gummies Adopted: No Lives independently: Yes Household members: none Housing: Apartment Marital status: / Current occupational status: disabled Do you think of yourself as: Straight/Heterosexual Current gender identity: Female Vitals/I&O/Wt Last Vital Signs Temp 97.6 F 02/17/25 11:38 Pulse 136 H 02/17/25 15:47 Resp 18 02/17/25 14:41 BP 92/65 02/17/25 14:41 Pulse Ox 100 02/17/25 14:41 O2 Del Method Mechanical Ventilation 02/17/25 15:00 O2 Flow Rate 3 02/17/25 11:38 FiO2 50 02/17/25 15:47 02/17/25 02/17/25 02/17/25 06:59 14:59 22:59 Intake Total 1660.77 / 1660.77 206.219 / 1866.989 Balance 1660.77 / 1660.77 206.219 / 1866.989 Weight last 48 hrs Weight 45.359 kg Weight 45.359 kg Physical Exam Narrative: General: Patient is in acute distress. Currently on BiPAP. Tachypneic, speaking in short sentences however awake and alert. HEENT: PERRLA, pupils bilaterally equal and reactive, pallors not present Chest: Normal vesicular breath sounds, no added sounds, equal good air entry bilaterally CVS: S1-S2 regular, no murmurs, no tachycardia, no gallops, no rubs Abdomen: Soft, nontender, no organomegaly, bowel sounds present Neuro: No focal deficits, moves all extremities in bed Data 02/17/25 11:31 02/17/25 11:31 Other Labs: Radiology Impressions Chest X-Ray 02/17/25 12:06 IMPRESSION: 1. Stable moderate right pleural effusion with right middle lobe and right lower lobe compressive atelectasis. Stable mild hyperinflation of the lungs. 2. Incidental/nonacute findings are listed in the report. Laboratory Results WBC 6.94 10^3/uL (3.29-11.43) 02/17/25 11: RBC 3.02 10^6/uL (3.85-5.65) L 02/17/25 11:31 Hgb 7.40 g/dL (11.27-16.99) L 02/17/25 11:31 Hct 27.2 % (36-47) L 02/17/25 11:31 MCV 90.1 fl (85-98) 02/17/25 11:31 MCH 24.5 pg (27-33) L 02/17/25 11:31 MCHC 27.2 g/dL (30-55) L 02/17/25 11:31 RDW 21.3 % (12.1-15.1) H 02/17/25 11:31 Plt Count 101 10^3/cmm (157-399) L 02/17/25 11:31 MPV 9.5 fL (7.4-10.4) 02/17/25 11:31 Neut % (Auto) 76.3 % 02/17/25 11:31 Lymph % (Auto) 12.2 % 02/17/25 11:31 Mcnairy % (Auto) 9.5 % 02/17/25 11: Eos % (Auto) 0.6 % 02/17/25 11: Baso % (Auto) 0.4 % 02/17/25 11:31 Neut # (Auto) 5.29 10^3/uL (1.8-7.7) 02/17/25 11:31 Lymph # (Auto) 0.9 10^3/uL (0.8-4.8) 02/17/25 11:31 Mcnairy # (Auto) 0.7 10^3/uL (0.2-0.9) 02/17/25 11: Eos # (Auto) 0.0 10^3/uL (0.0-0.8) 02/17/25 11:31 Baso # (Auto) 0.0 10^3/uL (0.0-0.1) 02/17/25 11:31 Nucleated RBC % (auto) 0.3 % 02/17/25 11:31 Nucleated RBCs # 0.0 /100WBC 02/17/25 11:31 Specimen Type Arterial 02/17/25 12:22 Sample Site Radial, right 02/17/25 12:22 ABG pH 7.32 (7.35-7.45) L 02/17/25 12:22 ABG pCO2 71.1 mmHg (35-45) H* 02/17/25 12:22 ABG pO2 42.7 mmHg (80.0-100.0) L 02/17/25 12:22 ABG PO2/FiO2 Ratio 133 02/17/25 12:22 ABG HCO3 36.6 mmol/L (22-26) H 02/17/25 12:22 ABG O2 Saturation 73.8 02/17/25 12:22 ABG Base Excess 9.2 mmol/L (-2.0-2.0) H 02/17/25 12:22 Ankush Test Pos 02/17/25 12:22 A-a O2 Gradient 13.2 mmHg (5-10) H 02/17/25 12:22 Hematocrit 23.7 % (37-47) L 02/17/25 12:22 Hgb O2 Saturation 71.6 % (95-100) L 02/17/25 12:22 Carboxyhemoglobin 2.0 %THgb (0.4-20.1) 02/17/25 12:22 Methemoglobin 1.0 % (0.4-1.5) 02/17/25 12:22 Total Hemoglobin 7.7 g/dL (12-16) L 02/17/25 12:22 Sodium 144.0 mmol/L (131-143) H 02/17/25 12:22 Potassium 4.8 mmol/L (3.5-5.0) 02/17/25 12:22 Glucose 115.0 mg/dL (70-115) 02/17/25 12:22 Ionized Calcium 1.2 mmol/L (1.1-1.4) 02/17/25 12:22 O2 Delivery Device Nc 02/17/25 12:22 O2 Liters/Min 3.0 % 02/17/25 12:22 FiO2 32.0 % 02/17/25 12:22 Marine Designer ID Cak 02/17/25 12:22 Sodium 140 mmol/L (136-145) 02/17/25 11:31 Potassium 4.9 mmol/L (3.5-5.1) 02/17/25 11:31 Chloride 97 mmol/L (98-107) L 02/17/25 11:31 Carbon Dioxide 35 mmol/L (22-29) H 02/17/25 11:31 Anion Gap 12.9 (5-19) 02/17/25 11:31 BUN 30 mg/dL (8-23) H 02/17/25 11:31 Creatinine 1.0 mg/dL (0.5-0.9) H 02/17/25 11:31 GFR Calculation Not Reportable 02/17/25 11:31 Glucose 124 mg/dL (65-115) H 02/17/25 11:31 Calculated Osmolality 298 mOsm/kg (285-295) H 02/17/25 11:31 Lactic Acid 1.1 mmol/L (0.5-2.2) 02/17/25 11:31 Calcium 8.8 mg/dL (8.5-10.5) 02/17/25 11:31 Total Bilirubin 0.6 mg/dL (0.15-1.2) 02/17/25 11:31 AST 26 U/L (0-32) 02/17/25 11:31 ALT 12 U/L (0-33) 02/17/25 11:31 Alkaline Phosphatase 133 U/L (35-105) H 02/17/25 11:31 Troponin T Baseline 90 ng/L (0-10) H 02/17/25 11:31 Troponin T 120 Minute 78.06 ng/L (0-10) H 02/17/25 13:30 Delta Troponin T -11.94 ABS# (0-10) L 02/17/25 13:30 Total Protein 6.8 g/dL (6.6-8.7) 02/17/25 11:31 Albumin 3.9 g/dL (3.5-5.2) 02/17/25 11:31 Globulin 2.9 g/dL (1.3-4.6) 02/17/25 11:31 Urine Color Yellow (Yellow) 02/17/25 14:00 Urine Appearance Clear (CLEAR) 02/17/25 14:00 Urine pH 5.0 (5-7) 02/17/25 14:00 Ur Specific [place] 1.014 (1.005-1.030) 02/17/25 14:00 Urine Protein 1+ (Negative) A 02/17/25 14:00 Urine Glucose (UA) Negative (Normal) 02/17/25 14:00 Urine Ketones Negative (Negative) 02/17/25 14:00 Urine Blood Negative (Negative) 02/17/25 14:00 Urine Nitrate Negative (Negative) 02/17/25 14:00 Urine Bilirubin Negative (Negative) 02/17/25 14:00 Urine Urobilinogen 0.2 mg/dL (Negative) 02/17/25 14:00 Ur Leukocyte Esterase Negative (Negative) 02/17/25 14:00 Urine RBC 3-5 /hpf (0-2) 02/17/25 14:00 Urine WBC 0-5 /hpf (0-5) 02/17/25 14:00 Ur Squamous Epith Cells 0-5 /hpf (0-5) 02/17/25 14:00 Amorphous Sediment Not Reportable 02/17/25 14:00 Urine Bacteria None seen /hpf (NONE) 02/17/25 14:00 Hyaline Casts 60.40 /lpf 02/17/25 14:00 Micro: Microbiology 02/17/25 12:23 Blood Culture - Preliminary Blood SPECIMEN COLLECTED 02/17/25 12:20 Blood Culture - Preliminary Blood SPECIMEN COLLECTED A&P Assessment and plan (1) Acute respiratory failure: acute resp failure Hypoxic hypercapneic respiratory failure on ABG Started on Bipap, patient needed precedex alongside to tolerate Bipap CXR with pleural effusion, no new PNA, recently treated for stenotrophomonas pneumonia Unlikley PE as she is chronically on Eliquis likely COPD exacerbation, start duoneb and budesonide inhalation, methylpred 40mg iv q12h Has long standing LE edema and weeping ulcerations on her lower extremities , unchanged to slightly improved over last admission Patient took a break from Bipap to discuss Goals of care Patient has multiple comorbidities, recently diagnosed with endocarditis, persistent e. fecalis bacteremia, has a port unable to be removed, she is too frail and deconsitioned to tolerate any major CT or vascular surgery. Patient stated during the interview that she is tired of being in pain . If she fails to improve with current measures and seems imminent, she would like to transition to comfort measures only. She request pain management understanding the risk of respiratory depression with opiates She is typically on suboxone but would prefer opiates at this time as she understands this is likely end of life May consider transition to hospice if she fails to improve (2) Endocarditis: see above currently on daptomycin continue same for now IF transitioning to hospice, will transition to oral linezolid as salvage therapy (3) Atrial fibrillation with rapid ventricular response: amiodarone 150mg iv over 10 min Digoxin 250 mcg iv x 1 followed by 125 mcg 6 hrs later Currently on infusion with precedex and levophed via port Will be unable to add amiodarone gtt additionally, therefor attempt to manage with pushes Patient had extensive skin breakdown related to iv draws and lines and would like to avoid this. her left forearm is still recovering and bandaged from her previous admission. would try to use port for iv and lab draws as far as possible. Plan acutely ill DVT ppx: on Eliquis chronically, hold today as Hb downtrending DNR/DNI PDMP PDMP Reviewed: Not Reviewed Attestations Medical Necessity Statement*: > 2 midnight stay will be needed Coding Level of Care Code Acute Code for Chg Fwd High MDM includes number and complexity of problems actively addressed during encounter, amount and/or complexity of data reviewed/ordered and described risk of complication, morbidity or mortality of management as documented Diagnoses Acute respiratory failure J96.00 Endocarditis I38 Atrial fibrillation with rapid ventricular response I48.91
[2025-02-17] MEDS: sodium chloride 0.9% 500 ML 999 ML IV (18:25)
--- NOTE | 2025-02-17 18:27 | PC.NURSE ---
recieved from er prior very anxious and in severe pain everywhere requesting bipap off also medication increased doctor here talked with pt and son and she related that she wants pain medication even if it lower pressure :im tired of being in pain arms and legs with wrap dressing due to severe skin tears placed on nc per pt request
[2025-02-17 18:32] LABS: Creatine Phosphokinase 39 U/L (26-192)
[2025-02-17] MEDS: digoxin 250 mcg/ml INJ 2 mL IVP (20:01)
[2025-02-17] MEDS: methylPREDNISolone sod succ 40 mg/mL INJ IVP (20:02)
[2025-02-17] MEDS: levalbuterol 0.63 mg/3 mL Neb INHALATION (20:48)
[2025-02-18] VITALS (27 sets, daily range): BP systolic 81–140; BP diastolic 42–87; PULSE 109–145; RESP 20–32; TEMP 36.1–36.9; O2SAT 87–100
[2025-02-18] MEDS: digoxin 250 mcg/ml INJ 2 mL 125 MCG IVP (00:57)
[2025-02-18] MEDS: levalbuterol 0.63 mg/3 mL Neb INHALATION (02:09)
[2025-02-18 04:45] LABS: Basophils % 0.2 %; Hematocrit 28.5 % (36-47); Lymphocytes # 0.6 10^3/uL (0.8-4.8); Lymphocytes % 5.4 %; Mean Corpuscular Hemoglobin 24.5 pg (27-33); Mean Corpuscular Volume 94.4 fl (85-98); Mean Platelet Volume 10.1 fL (7.4-10.4); Monocytes # 0.2 10^3/uL (0.2-0.9); Monocytes % 1.4 %; Neutrophils # 9.72 10^3/uL (1.8-7.7); Neutrophils % 91.6 %; Nucleated Red Blood Cells # 0.1 /100WBC; Nucleated Red Blood Cells % 0.5 %; Platelet Count 129 10^3/cmm (157-399); Red Blood Count 3.02 10^6/uL (3.85-5.65); Red Cell Distribution Width 21.7 % (12.1-15.1); White Blood Count 10.61 10^3/uL (3.29-11.43)
[2025-02-18] MEDS: HYDROmorphone 0.5 MG/0.5 ML INJ IVP (04:51)
[2025-02-18 05:06] LABS: Alanine Aminotransferase 184 U/L (0-33); Albumin Level 3.7 g/dL (3.5-5.2); Alkaline Phosphatase 425 U/L (35-105); Anion Gap 13.5 (5-19); Aspartate Amino Transferase 335 U/L (0-32); Blood Urea Nitrogen 46 mg/dL (8-23); Calcium 7.9 mg/dL (8.5-10.5); Carbon Dioxide 34 mmol/L (22-29); Chloride 101 mmol/L (98-107); Creatinine Clr Calc Pharmacy 23.2478; Globulin 2.8 g/dL (1.3-4.6); Glucose 103 mg/dL (65-115); Magnesium 1.8 mg/dL (1.7-2.3); Osmolality Calculated 308 mOsm/kg (285-295); Potassium 5.5 mmol/L (3.5-5.1); Sodium 143 mmol/L (136-145); Total Bilirubin 0.6 mg/dL (0.15-1.2); Total Protein 6.5 g/dL (6.6-8.7)
[2025-02-18] MEDS: LORazepam 2 mg/mL INJ 1 mL IVP ×2 (05:36→07:37)
[2025-02-18] MEDS: morphine 4 mg/mL SDV 1 mL IVP ×4 (05:37→09:53)
--- NOTE | 2025-02-18 08:39 | PC.NURSE ---
on comfort care family at bedside linen change done and oral care repositoned ativan given comfort resp shallow faint pulse noted unable obtain blood pressure
--- NOTE | 2025-02-18 12:50 | PC.NURSE ---
no rep effort no pulse no blood pressure son and other family at bedside doctor notified , [facility] home in [place] after call placed to [facility]
--- NOTE | 2025-02-18 13:10 | PC.NURSE ---
Spoke with [facility] and [facility] Pt was not a candidate for either with confirmation from Francisco Javier at [facility] and Rocio from [facility]. reference number [id number]
--- NOTE | 2025-02-18 15:34 | P.DES_ITS ---
Discharge Providers DDS Date of Admission: 02/17/25 13:42 Date Summary Completed: 02/18/25 Attending Provider at Admission: Yoana Gross MD Time of : 12:50 Attending Provider at Discharge: Yoana Gross MD Primary Care Provider: DO BLANKA Álvarez Diagnoses Hospital Diagnoses (1) Acute respiratory failure: (2) Endocarditis: (3) Atrial fibrillation with rapid ventricular response: Reason for Visit Reason for Visit chest pain Brief History: Sakina Lombardi was a 74 year old female COPD, CAD, cor pulmonale, smoking addiction, hx of carotid stenosis, dyslipidemia, PPM for syncope and bradycardia patient recently admitted for Enterococcus faecalis endocarditis which was difficult to treat. Patient had suffered from prolonged bacteremia in the past admission. Vancomycin treatment was unsuccessful in clearing the bacteremia. Patient had previously reported allergies to ampicillin and ceftriaxone. Trial of both antibiotics was given cautiously in the hospital and patient tolerated it well. She was switched to ampicillin and ceftriaxone following which patient cleared her blood cultures. Her port was attempted to be removed, however in spite of multiple attempts by general surgery this was unsuccessful. She was found to have a right atrial vegetation. ASPEN was unable to be performed because of patient's past history of laryngeal cancer and considered too high risk. While on the above treatment, patient started to develop ulceration over her left forearm. It remains unclear whether the ulceration was related to mechanical shearing and skin breakdown versus possibility of fixed drug eruption from either of the newly introduced beta-lactam's. Eventually beta-lactam needed to be discontinued and she was switched to daptomycin and discharged to intermediate.. She was brought to ER from intermediate on 02/17 with acute respiratory distress. Patient was noted to have hypercapnic respiratory failure and was placed on BiPAP. Patient was hypotensive upon admission . Extended goals of care discussion was pursued with the patient. She remained alert, awake , oriented and able to communicate her wishes. Her son remained at bedside during the discussion. Patient has multiple comorbidities, recently diagnosed with endocarditis, prolonged e. fecalis bacteremia, has a port unable to be removed, she is too frail and deconditioned to tolerate any major CT or vascular surgery. Patient stated during the interview that she is tired of being in pain . She requested pain management understanding the risk of respiratory depression with opiates . She was typically on suboxone but preferred opiates as she was at end of life. She stated her wishes that when seems imminent and if she fails to improve with initial measures, she would liek to transtion to comfort care management only. In accordance with her expressed wishes, she was transitioned to comfort care management in the early hours of February 18, 2025. Patient on comfort care on February 18, 2025 at 12:50 PM. Summary Date and Time of Date of : 02/18/25 Time of : 12:50 Additional Data Confirmation of as documented by pronouncing clinician: no pulse, no respirations, no heart sounds and pupils fixed and dilated Family: at bedside Attending/PCP notified?: I am attending Was code activated?: No Autopsy requested?: No Advance directives?: No Discharge Plan Discharge Patient Disposition: Home Condition: Stable Prescriptions: No Action fluticasone propionate 50 mcg/actuation spray,suspension 2 spray intranasal DAILY Qty: 16 3RF levothyroxine 50 mcg tablet 50 mcg PO DAILY Qty: 90 1RF nicotine 21-14-7 mg/24 hr patch, TD daily, sequential See Rx Instructions transdermal .COMPLEX Qty: 56 0RF Rx Instructions: apply 1-21 mg NICOTINE PATCH daily for 28 days; follow with 1-14 mg PATCH daily for 14 days, then 1-7mg PATCH daily for 14 days transdermal albuterol sulfate 90 mcg/actuation HFA aerosol inhaler 2 puff inhalation Q4H PRN (Reason: shortness of breath or wheezing) Qty: 6.7 3RF loratadine 10 mg tablet 10 mg PO DAILY Qty: 30 6RF roflumilast 500 mcg tablet 500 mcg PO DAILY Qty: 30 5RF cilostazol 50 mg tablet 50 mg PO BID Qty: 90 3RF pantoprazole 40 mg tablet,delayed release (DR/EC) 40 mg PO BID Qty: 90 3RF metoprolol tartrate 25 mg tablet 25 mg PO BID Qty: 180 3RF ferrous sulfate 325 mg (65 mg iron) tablet,delayed release (DR/EC) 325 mg PO DAILY Qty: 30 1RF magnesium oxide 400 mg magnesium Capsule 400 mg PO DAILY calcitriol 0.5 mcg capsule 0.5 mcg PO DAILY atorvastatin 20 mg tablet 20 mg PO DAILY baclofen 10 mg tablet 10 mg PO Q8H PRN (Reason: muscle spasms) bumetanide 1 mg tablet 1 mg PO BID PRN (Reason: Edema) Eliquis 5 mg Tablet 5 mg PO BID@0900,2100 Qty: 60 0RF nitroglycerin [Nitrostat] 0.4 mg Tablet, Sublingual 0.4 mg SUBLINGUAL Q5M PRN (Reason: Chest Pain) Rx Instructions: do not exceed 3 doses per episode buprenorphine-naloxone [Suboxone] 8-2 mg Film 1 film BUCCAL TID Referrals: Roger Reynoso, [Primary Care Provider] - Patient Instructions: Opioid Safety DS Attestations Time Spent in /Discharge Care*: greater than 30 min Quality - AMI: AMI present?: No Quality - Stroke: CVA present?: No Symptom Onset Unknown: No Quality - VTE: VTE present?: No Deep Vein Thrombosis/Pulmonary Embolism Present on Admission: No Coding Level of Care Code Acute Code for [facility] Diagnoses Acute respiratory failure J96.00 Endocarditis I38 Atrial fibrillation with rapid ventricular response I48.91
== END 2025-02-18 17:00 | disposition expired | DRG 189 ==
LOC: ER 13:54 → ICU 14:03
PROVIDERS: Admitting Provider Student in an Organized Health Care Education/Training Program; Emergency Provider Emergency Medicine; PCP Family Medicine; Visit Provider Student in an Organized Health Care Education/Training Program
DX: J96.02 Acute respiratory failure with hypercapnia (principal); I38 Endocarditis, valve unspecified; J96.01 Acute respiratory failure with hypoxia; F17.200 Nicotine dependence, unspecified, uncomplicated; I48.91 Unspecified atrial fibrillation; Z79.01 Long term (current) use of anticoagulants; J44.9 Chronic obstructive pulmonary disease, unspecified; I25.10 Atherosclerotic heart disease of native coronary artery without angina pectoris; E78.5 Hyperlipidemia, unspecified; L98.499 Non-pressure chronic ulcer of skin of other sites with unspecified severity; I95.9 Hypotension, unspecified; Z51.5 Encounter for palliative care; Z85.21 Personal history of malignant neoplasm of larynx; Z86.73 Personal history of transient ischemic attack (TIA), and cerebral infarction without residual deficits
CPT/HCPCS: 36415; 36591; 36600; 51702; 71045; 80051; 80053; 81001; 82330; 82550; 82805; 83605; 83735; 84484; 85025; 87040; 93005; 94640; 94660; 96365; 96367; 96374; 96375; 96376; 99291; J0283; J1160; J1171; J2060; J2270; J2543; J2919; J3370; J3490; J7030; J7040; J7050; J7614; J9999